=== PATIENT | female | born 1975 | race Caucasian/White ===

== ENCOUNTER 2017-04-27 16:24 | Emergency (ER) | payer MEDICAID, SELFPAY | END 2017-04-27 17:01 | disposition home or self-care (01) | PROVIDERS: Emergency Provider Emergency Medicine; Visit Provider Emergency Medicine | DX: N30.00 Acute cystitis without hematuria (principal); I10 Essential (primary) hypertension; D64.9 Anemia, unspecified; F41.8 Other specified anxiety disorders | CPT/HCPCS: 81001; 87086; 87088; 87186; 99282 ==

== ENCOUNTER 2017-05-11 04:15 | Emergency (ER) | payer MEDICAID, SELFPAY ==
[2017-05-11 04:21] VITALS: BP 131/94; PULSE 113; RESP 20; TEMP 37.2; O2SAT 95; BMI 39.2
--- NOTE | 2017-05-11 04:33 | HMH.EDGENADL ---
ED Disposition Clinical Impression: Headache Qualifiers: Headache type: unspecified Headache chronicity pattern: acute headache Intractability: not intractable Qualified Code(s): R51 - Headache Disposition: Home, Self-Care Condition on Discharge: Good Instructions: Migraine -- Adult Additional Instructions: call pcp for follow up Referrals: Mahesh Horton MD [Primary Care Provider] - - Critical Care Critical Care Time: No Attestation: On , the high probability of a clinically significant, sudden or life threatening deterioration of the following system(s) required my full and direct attention, intervention and personal management. The time I documented below is in addition to time spent performing reported procedures but includes the following listed in this critical care notation. Medical Decision Making - Medical Records Medical records reviewed: Yes: I reviewed the patient's medical records. Vital Signs: 05/11/17 04:21 Temperature 99 F Temperature Source Oral Pulse Rate [Right Brachial] 113 H Respiratory Rate 20 Blood Pressure [Right Arm] 131/94 Blood Pressure Mean [Right Arm] 106 Blood Pressure Source [Right Arm] Automatic Cuff Blood Pressure Position [Right Arm] Sitting 02 Sat by Pulse Oximetry 95 Oxygen Delivery Method Room Air - Mark Inquiry Pt receiving controlled substance: No General Adult HPI - General Chief complaint: PAIN Stated complaint: MIGRAINE Time Seen by Provider: 05/11/17 04:33 Mode of Arrival: Family Vehicle Source of Information: Patient, Spouse, Medical Record Limitations: No Limitations Description of Symptoms (Recalled from ER Triage Doc. by RN): C/O MIGRAINE HEADACHE SINCE 05/10/17 @ 7 PM WITH NAUSEA. TOOK ADVIL MIGRAINE WITH NO RELIEF - History of Present Illness HPI narrative: pt with acute excerbation of her migraine santiago Onset (ago): hour(s) Location: head Severity: moderate Treatments prior to arrival: NSAID - Related Data Home Medications Medication Instructions Recorded Confirmed Carvedilol [Carvedilol 3.125mg Tab] 3.125 mg PO BID 05/11/17 05/11/17 Allergies Allergy/AdvReac Type Severity Reaction Status Date / Time Penicillins [PENICILLINS] Allergy Intermediate I-RASH Unverified 04/21/17 14:36 metoclopramide [From REGLAN] Allergy Mild NA-HALLUCIN Unverified [facility]/21/17 [facility] I have reviewed the patient's past medical history: Yes Medical History: Denies:: Cancer, Diabetes Mellitus Type 1, MRSA Laterality Cases: Bilateral: Tonsillectomy Amputation: No Fractures: No - *Social History Educational Level: Completed High School Smoking Status: Never smoker Alcohol Intake: never - Psychiatric History Expresses thoughts of harming self/others: None Suicide Plan Description: No Plan ROS Obtained: Yes All systems reviewed & no additional complaints - Constitutional Denies fever(s) - Eyes Reports sensitivity to light, Denies change in vision - ENT Denies neck pain - Cardiovascular Denies shortness of breath with activity - Respiratory Denies cough - Neurologic Reports headache(s), Denies seizure-like activity Physical Exam - General General appearance: alert, in no apparent distress - Head Head exam: atraumatic - Eye Eye exam: Present: PERRL, EOMI - ENT ENT exam: Present: mucous membranes moist - Neck Neck exam: Present: full ROM - Respiratory Respiratory exam: Absent: respiratory distress - Cardiovascular Cardiovascular exam: Present: regular rate - Extremities Exam Extremities exam: Present: normal inspection - Neurological Exam Neurological exam: Present: alert, oriented X3, CN II-XII intact - Psychiatric Psychiatric exam: Present: normal affect - Skin Skin exam: Absent: rash
--- NOTE | 2017-05-11 04:36 | ED_ITS ---
ED Disposition Clinical Impression: Headache Qualifiers: Headache type: unspecified Headache chronicity pattern: acute headache Intractability: not intractable Qualified Code(s): R51 - Headache Disposition: Home, Self-Care Condition on Discharge: Good Instructions: Migraine -- Adult Additional Instructions: call pcp for follow up Referrals: Mahesh Horton MD [Primary Care Provider] - - Critical Care Critical Care Time: No Attestation: On , the high probability of a clinically significant, sudden or life threatening deterioration of the following system(s) required my full and direct attention, intervention and personal management. The time I documented below is in addition to time spent performing reported procedures but includes the following listed in this critical care notation. Medical Decision Making - Medical Records Medical records reviewed: Yes: I reviewed the patient's medical records. Vital Signs: 05/11/17 04:21 Temperature 99 F Temperature Source Oral Pulse Rate [Right Brachial] 113 H Respiratory Rate 20 Blood Pressure [Right Arm] 131/94 Blood Pressure Mean [Right Arm] 106 Blood Pressure Source [Right Arm] Automatic Cuff Blood Pressure Position [Right Arm] Sitting 02 Sat by Pulse Oximetry 95 Oxygen Delivery Method Room Air - Mark Inquiry Pt receiving controlled substance: No General Adult HPI - General Chief complaint: PAIN Stated complaint: MIGRAINE Time Seen by Provider: 05/11/17 04:33 Mode of Arrival: Family Vehicle Source of Information: Patient, Spouse, Medical Record Limitations: No Limitations Description of Symptoms (Recalled from ER Triage Doc. by RN): C/O MIGRAINE HEADACHE SINCE 05/10/17 @ 7 PM WITH NAUSEA. TOOK ADVIL MIGRAINE WITH NO RELIEF - History of Present Illness HPI narrative: pt with acute excerbation of her migraine santiago Onset (ago): hour(s) Location: head Severity: moderate Treatments prior to arrival: NSAID - Related Data Home Medications Medication Instructions Recorded Confirmed Carvedilol [Carvedilol 3.125mg Tab] 3.125 mg PO BID 05/11/17 05/11/17 Allergies Allergy/AdvReac Type Severity Reaction Status Date / Time Penicillins [PENICILLINS] Allergy Intermediate I-RASH Unverified 04/21/17 14:36 metoclopramide [From REGLAN] Allergy Mild NA-HALLUCIN Unverified 04/21/17 14:36 [facility] History I have reviewed the patient's past medical history: Yes Medical History: Denies:: Cancer, Diabetes Mellitus Type 1, MRSA Laterality Cases: Bilateral: Tonsillectomy Amputation: No Fractures: No - *Social History Educational Level: Completed High School Smoking Status: Never smoker Alcohol Intake: never - Psychiatric History Expresses thoughts of harming self/others: None Suicide Plan Description: No Plan ROS Obtained: Yes All systems reviewed & no additional complaints - Constitutional Denies fever(s) - Eyes Reports sensitivity to light, Denies change in vision - ENT Denies neck pain - Cardiovascular Denies shortness of breath with activity - Respiratory Denies cough - Neurologic Reports headache(s), Denies seizure-like activity Physical Exam - General General appearance: alert, in no apparent distress - Head Head exam: atraumatic -
[2017-05-11 04:46] VITALS: BP 131/94; PULSE 113; RESP 20; TEMP 37.2; O2SAT 95
== END 2017-05-11 04:49 | disposition home or self-care (01) ==
LOC: ER 04:56
PROVIDERS: Emergency Provider Emergency Medicine; Family Provider Emergency Medicine; PCP Emergency Medicine
DX: R51 Headache (principal); Z88.0 Allergy status to penicillin
CPT/HCPCS: 96372; 99282; J0595

== ENCOUNTER 2017-05-12 17:42 | Emergency (ER) | payer MEDICAID, SELFPAY ==
[2017-05-12 18:20] VITALS: BP 138/90; PULSE 88; RESP 20; TEMP 37.6; O2SAT 98; BMI 39.2
--- NOTE | 2017-05-12 18:54 | HMH.EDUTC ---
[facility] [place]ression: Influenza Disposition: Home, Self-Care Condition on Discharge: Good Instructions: Influenza Additional Instructions: ? Start Tamiflu today if you are going to take it. Discussed risk and possible benefits. ? Lots of rest ? Increase Fluids water, Gatorade, powerade, pedialyte,if /toddler/child ? Alternate Tylenol and / or ibuprofen as discussed for fever, aches, chills x 24 hours without medication for symptoms ? Follow up IMMEDIATELY for new or worsening Symptoms OR no noticeable improvement over the next 48-72 hours, 911 for difficulty or breathing ? You or your child area contagious until no fever, aches, chills for 24 hours with medication for symptoms Prescriptions: Oseltamivir Phosphate [Tamiflu 75mg Capsule] 75 mg PO BID #10 capsule Referrals: Mahesh Horton MD [Primary Care Provider] - Time of Disposition: 19:11 Medical Decision Making Vital Signs: 05/12/17 18:20 Temperature 99.6 F Temperature Source Temporal Artery Scan Pulse Rate [Right] 88 Respiratory Rate 20 Blood Pressure [Right Arm] 138/90 Blood Pressure Mean [Right Arm] 106 Blood Pressure Source [Right Arm] Automatic Cuff Blood Pressure Position [Right Arm] Sitting 02 Sat by Pulse Oximetry 98 Oxygen Delivery Method Room Air - Mark Inquiry Pt receiving controlled substance: No Mark was queried for this patient: No [facility] [place] - General Stated complaint: Cough,Sore throat, Body aches Mode of Arrival: Ambulatory Source of Information: Patient Limitations: No Limitations Description of Symptoms (Recalled from Triage Doc. by RN): COUGH, EAR ACHE, BODY ACHES HEENT Symptoms (Recalled from RN notes): Yes Resp Symptoms (Recalled from RN notes): No Skin Symptoms (Recalled from RN notes): No MS Symptoms (Recalled from RN notes): No Functional Status (Recalled from RN notes): N - History of Present Illness Provider Complaint: Patient state that grand daughter recently diagnosed with the flu and thinks she may have caught it off of her State that she is having body aches chills fever and sore throat and over all not feeling well State that she came in to get tested - Related Data Home Medications Medication Instructions Recorded Confirmed Carvedilol [Carvedilol 3.125mg Tab] 3.125 mg PO BID 05/11/17 05/11/17 Losartan Potassium 50 mg PO DAILY 05/11/17 05/11/17 Quetiapine Fumarate [Seroquel Xr] 50 mg PO DAILY 05/11/17 05/11/17 fluPHENAZine HCl [Prolixin 1mg 25 mg PO DAILY 05/11/17 tablet] hydrOXYzine pamoate [Vistaril 25mg 25 mg PO TID 05/11/17 05/11/17 capsule] Previous Rx's Medication Instructions Recorded Oseltamivir Phosphate [Tamiflu 75 mg PO BID #10 cap 05/12/17 75mg Capsule] Allergies Allergy/AdvReac Type Severity Reaction Status Date / Time Penicillins [PENICILLINS] Allergy Intermediate I-RASH Verified 05/11/17 04:40 metoclopramide [From REGLAN] Allergy Mild NA-HALLUCIN Verified 05/11/17 04:40 ATIONS - Worker's Comp Is this a Worker's Comp case?: No [facility] History I have reviewed the patient's past medical history: Yes Medical History: Denies:: Cancer, Diabetes Mellitus Type 1, MRSA Laterality Cases: Bilateral: Tonsillectomy Amputation: No Fractures: No - *Social History Smoking Status: Never smoker Alcohol Intake: never - Psychiatric History Expresses thoughts of harming self/others: None Suicide Plan Description: No Plan ROS Obtained: Yes All systems reviewed & no additional complaints - Constitutional Constitutional: Reports fever(s), Reports headache(s) - ENT Ears, Nose, Mouth, and Throat: Reports sinus pain, Reports sore throat Physical Exam - General General appearance: alert, in no apparent distress - ENT ENT exam: Present: normal exam, normal oropharynx, mucous membranes moist, TM's normal bilaterally, normal external ear exam, other (Throat mildly red, irritated drainage noted) - Respiratory Respiratory exam: Presen
--- NOTE | 2017-05-12 19:02 | ED_ITS ---
[facility] [place] Clinical Impression: Influenza Disposition: Home, Self-Care Condition on Discharge: Good Instructions: Influenza Additional Instructions: ? Start Tamiflu today if you are going to take it. Discussed risk and possible benefits. ? Lots of rest ? Increase Fluids water, Gatorade, powerade, pedialyte,if /toddler/child ? Alternate Tylenol and / or ibuprofen as discussed for fever, aches, chills x 24 hours without medication for symptoms ? Follow up IMMEDIATELY for new or worsening Symptoms OR no noticeable improvement over the next 48-72 hours, 911 for difficulty or breathing ? You or your child area contagious until no fever, aches, chills for 24 hours with medication for symptoms Prescriptions: Oseltamivir Phosphate [Tamiflu 75mg Capsule] 75 mg PO BID #10 capsule Referrals: Mahesh Horton MD [Primary Care Provider] - Time of Disposition: 19:11 Medical Decision Making Vital Signs: 05/12/17 18:20 Temperature 99.6 F Temperature Source Temporal Artery Scan Pulse Rate [Right] 88 Respiratory Rate 20 Blood Pressure [Right Arm] 138/90 Blood Pressure Mean [Right Arm] 106 Blood Pressure Source [Right Arm] Automatic Cuff Blood Pressure Position [Right Arm] Sitting 02 Sat by Pulse Oximetry 98 Oxygen Delivery Method Room Air - Mark Inquiry Pt receiving controlled substance: No Mark was queried for this patient: No [facility] [place] HPI - General Stated complaint: Cough,Sore throat, Body aches Mode of Arrival: Ambulatory Source of Information: Patient Limitations: No Limitations Description of Symptoms (Recalled from Triage Doc. by RN): COUGH, EAR ACHE, BODY ACHES HEENT Symptoms (Recalled from RN notes): Yes Resp Symptoms (Recalled from RN notes): No Skin Symptoms (Recalled from RN notes): No MS Symptoms (Recalled from RN notes): No Functional Status (Recalled from RN notes): N - History of Present Illness Provider Complaint: Patient state that grand daughter recently diagnosed with the flu and thinks she may have caught it off of her State that she is having body aches chills fever and sore throat and over all not feeling well State that she came in to get tested - Related Data Home Medications Medication Instructions Recorded Confirmed Carvedilol [Carvedilol 3.125mg Tab] 3.125 mg PO BID 05/11/17 05/11/17 Losartan Potassium 50 mg PO DAILY 05/11/17 05/11/17 Quetiapine Fumarate [Seroquel Xr] 50 mg PO DAILY 05/11/17 05/11/17 fluPHENAZine HCl [Prolixin 1mg 25 mg PO DAILY 05/11/17 tablet] hydrOXYzine pamoate [Vistaril 25mg 25 mg PO TID 05/11/17 05/11/17 capsule] Previous Rx's Medication Instructions Recorded Oseltamivir Phosphate [Tamiflu 75 mg PO BID #10 cap 05/12/17 75mg Capsule] Allergies Allergy/AdvReac Type Severity Reaction Status Date / Time Penicillins [PENICILLINS] Allergy Intermediate I-RASH Verified 05/11/17 04:40 metoclopramide [From REGLAN] Allergy Mild NA-HALLUCIN Verified 05/11/17 04:40 ATIONS - Worker's Comp Is this a Worker's Comp case?: No [facility] History I have reviewed the patient's past medical history: Yes Medical History: Denies:: Cancer, Diabetes Mellitus Type 1, MRSA Laterality Cases: Bilateral: Tonsillectomy Amputation: No Fractures: No - *Social History Smoking Status: Ne
[2017-05-12 19:24] LABS: UTC Influenza A Antigen Positive (Negative); UTC Influenza B Antigen Negative (Negative)
== END 2017-05-12 19:18 | disposition home or self-care (01) ==
PROVIDERS: Emergency Provider Nurse Practitioner; Family Provider Emergency Medicine; PCP Emergency Medicine
DX: J10.1 Influenza due to other identified influenza virus with other respiratory manifestations (principal); Z79.899 Other long term (current) drug therapy; Z88.0 Allergy status to penicillin
CPT/HCPCS: 87804; 99202

== ENCOUNTER 2017-05-17 13:19 | Emergency (ER) | payer MEDICAID, SELFPAY ==
[2017-05-17 14:41] VITALS: BMI 46.2
[2017-05-17 14:42] VITALS: BP 170/101; PULSE 111; RESP 18; TEMP 37.7; O2SAT 98; BMI 39.2
--- NOTE | 2017-05-17 14:48 | XR_ITS ---
XR chest 2V INDICATION: Please symptoms COMPARISON: PA and lateral chest 01/24/2016 FINDINGS: The cardiovascular structures are unremarkable. No mediastinal shift or hilar mass is evident. The lungs are well expanded and clear bilaterally. The costophrenic sulci are sharp. No significant bony anomalies are apparent. IMPRESSION: Negative chest.
--- NOTE | 2017-05-17 15:48 | HMH.EDUTC ---
[facility] [place]ression: History of influenza Pneumonia Qualifiers: Pneumonia type: due to influenza A virus Laterality: right Lung location: lower lobe of lung Qualified Code(s): J11.00 - Influenza due to unidentified influenza virus with unspecified type of pneumonia Disposition: Home, Self-Care Condition on Discharge: Good Instructions: DI for Pneumonia -- Adult, Pneumonia-Adult Additional Instructions: * start antibiotic today per ER MD as we discussed. Be sure to complete entire prescription even if feeling better. * Encourage fluids, water, gatorade, powerade, * warm salt water gargles * warm fluids * sore throat lozenges * sleep elevated * humidifier/vaporizer Prescriptions: Azithromycin [Z-Matthew 250mg Tab] 250 mg PO UD DOSE PK #6 tab cefUROXime axetil [Ceftin 250mg Tablet] 2 tab PO BID 10 Days tab Referrals: Mahesh Horton MD [Primary Care Provider] - (IMMEDIATELY for new or worsening symptoms, TOMORROW for final CXR results ER/911 for any difficulty breathing) Time of Disposition: 16:32 Medical Decision Making Vital Signs: 05/17/17 14:42 Temperature 99.9 F H Temperature Source Temporal Artery Scan Pulse Rate [Right Brachial] 111 H Respiratory Rate 18 Blood Pressure [Right Arm] 170/101 Blood Pressure Mean [Right Arm] 124 Blood Pressure Source [Right Arm] Automatic Cuff Blood Pressure Position [Right Arm] Sitting 02 Sat by Pulse Oximetry 98 Oxygen Delivery Method Room Air - Lab Data Lab results reviewed: Yes: I reviewed the patient's lab results. Lab Results 05/17/17 14:48: Influenza Type A Ag Negative, Influenza Type B Ag Negative, Strep Scn Rapid Clinic Negative Orders (Tests/Meds): ORDERS Category Date Time Status Chest XR 2 view (NOT portable) [XR chest 2V] Stat Exams 05/17/17 14:48 Taken Strep Screen Confirmation Stat Micro 05/17/17 14:48 Received - Radiology Data #1 Image(s): Chest Image Reviewed: Yes I reviewed the patient's radiology image, Yes I reviewed the patient's radiology image w/the ED provider Per Dr. Parker, chronic changes and can't exclude early RLL infiltrates. Wants patient on ceftin 500mg BID and zpack. - Mark Inquiry Pt receiving controlled substance: No [facility] [place] - General Stated complaint: cough,has had flu Time Seen by Provider: 05/17/17 15:40 Mode of Arrival: Family Vehicle Source of Information: Patient Limitations: No Limitations Description of Symptoms (Recalled from Triage Doc. by RN): was diagnosed with the flu type a , now i have no voice and my ears hurt HEENT Symptoms (Recalled from RN notes): Yes Resp Symptoms (Recalled from RN notes): No Skin Symptoms (Recalled from RN notes): No MS Symptoms (Recalled from RN notes): No Functional Status (Recalled from RN notes): WNL - History of Present Illness Provider Complaint: c/o feeling worse since being diagnosed with the flu on Thursday, 5 days ago. Has been taking tamiflu, tylenol and ibuprofen. Bulger like it was helping and that she was getting better. Then at work today, started to feel feverish again w/ chills. No aches. Nonprod cough worse. Hasn't taken or tried anything else today for symptoms. Denies SOA, wheezing. Just coughed so much that now I am hoarse . - Related Data Home Medications Medication Instructions Recorded Confirmed Carvedilol [Carvedilol 3.125mg Tab] 25 mg PO BID 05/11/17 05/17/17 Losartan Potassium 50 mg PO DAILY 05/11/17 05/17/17 Quetiapine Fumarate [Seroquel Xr] 50 mg PO DAILY 05/11/17 05/17/17 fluPHENAZine HCl [Prolixin 1mg 25 mg PO DAILY 05/11/17 05/17/17 tablet] hydrOXYzine pamoate [Vistaril 25mg 25 mg PO TID 05/11/17 05/17/17 capsule] Oseltamivir Phosphate [Tamiflu 75 mg PO BID 05/17/17 05/17/17 75mg Capsule] Previous Rx's Medication Instructions Recorded Azithromycin [Z-Matthew 250mg Tab] 250 mg PO UD DOSE PK #6 tab 05/17/17 cefUROXime axetil [Ceftin 250mg 2 tab PO BID 10 Days tab 05/17/17 Tablet]
--- NOTE | 2017-05-17 15:51 | ED_ITS ---
[facility] [place] Imp[place]: History of influenza Pneumonia Qualifiers: Pneumonia type: due to influenza A virus Laterality: right Lung location: lower lobe of lung Qualified Code(s): J11.00 - Influenza due to unidentified influenza virus with unspecified type of pneumonia Disposition: Home, Self-Care Condition on Discharge: Good Instructions: DI for Pneumonia -- Adult, Pneumonia-Adult Additional Instructions: * start antibiotic today per ER MD as we discussed. Be sure to complete entire prescription even if feeling better. * Encourage fluids, water, gatorade, powerade, * warm salt water gargles * warm fluids * sore throat lozenges * sleep elevated * humidifier/vaporizer Prescriptions: Azithromycin [Z-Matthew 250mg Tab] 250 mg PO UD DOSE PK #6 tab cefUROXime axetil [Ceftin 250mg Tablet] 2 tab PO BID 10 Days tab Referrals: Mahesh Horton MD [Primary Care Provider] - (IMMEDIATELY for new or worsening symptoms, TOMORROW for final CXR results ER/911 for any difficulty breathing) Time of Disposition: 16:32 Medical Decision Making Vital Signs: 05/17/17 14:42 Temperature 99.9 F H Temperature Source Temporal Artery Scan Pulse Rate [Right Brachial] 111 H Respiratory Rate 18 Blood Pressure [Right Arm] 170/101 Blood Pressure Mean [Right Arm] 124 Blood Pressure Source [Right Arm] Automatic Cuff Blood Pressure Position [Right Arm] Sitting 02 Sat by Pulse Oximetry 98 Oxygen Delivery Method Room Air - Lab Data Lab results reviewed: Yes: I reviewed the patient's lab results. Lab Results 05/17/17 14:48: Influenza Type A Ag Negative, Influenza Type B Ag Negative, Strep Scn Rapid Clinic Negative Orders (Tests/Meds): ORDERS Category Date Time Status Chest XR 2 view (NOT portable) [XR chest 2V] Stat Exams 05/17/17 14:48 Taken Strep Screen Confirmation Stat Micro 05/17/17 14:48 Received - Radiology Data #1 Image(s): Chest Image Reviewed: Yes I reviewed the patient's radiology image, Yes I reviewed the patient's radiology image w/the ED provider Per Dr. Parker, chronic changes and can't exclude early RLL infiltrates. Wants patient on ceftin 500mg BID and zpack. - Mark Inquiry Pt receiving controlled substance: No [facility] [place] - General Stated complaint: cough,has had flu Time Seen by Provider: 05/17/17 15:40 Mode of Arrival: Family Vehicle Source of Information: Patient Limitations: No Limitations Description of Symptoms (Recalled from Triage Doc. by RN): was diagnosed with the flu type a , now i have no voice and my ears hurt HEENT Symptoms (Recalled from RN notes): Yes Resp Symptoms (Recalled from RN notes): No Skin Symptoms (Recalled from RN notes): No MS Symptoms (Recalled from RN notes): No Functional Status (Recalled from RN notes): WNL - History of Present Illness Provider Complaint: c/o feeling worse since being diagnosed with the flu on Thursday, 5 days ago. Has been taking tamiflu, tylenol and ibuprofen. Usk like it was helping and that she was getting better. Then at work today, started to feel feverish again w/ chills. No aches. Nonprod cough worse. Hasn't taken or tried anything else today for symptoms. Denies SOA, wheezing. Just coughed so much that now I am hoarse . - Related Data Home Medications Medication Instructions Recorded Confirmed Carvedilol [Carvedilol 3.125mg Tab] 25 mg PO BID
[2017-05-17 15:56] LABS: UTC Influenza A Antigen Negative (Negative); UTC Influenza B Antigen Negative (Negative); UTC Strep Screen (Rapid) Negative (Negative)
[2017-05-17 16:39] VITALS: BP 170/101; PULSE 111; RESP 18; TEMP 37.7; O2SAT 98
== END 2017-05-17 16:41 | disposition home or self-care (01) ==
PROVIDERS: Emergency Provider Nurse Practitioner Family; Family Provider Emergency Medicine; PCP Emergency Medicine
DX: J11.00 Influenza due to unidentified influenza virus with unspecified type of pneumonia (principal); F17.210 Nicotine dependence, cigarettes, uncomplicated; H66.019 Acute suppurative otitis media with spontaneous rupture of ear drum, unspecified ear; Z88.0 Allergy status to penicillin
CPT/HCPCS: 71046; 87804; 87880; 99202; 99282

== ENCOUNTER 2017-06-01 10:18 | Emergency (ER) | payer MEDICAID, SELFPAY ==
[2017-06-01 11:25] VITALS: BP 140/110; PULSE 85; RESP 20; TEMP 36.6; O2SAT 97; BMI 38.0
--- NOTE | 2017-06-01 12:13 | HMH.EDUTC ---
[facility] [place] Clinical Impression: Bronchitis Otitis media, purulent, acute, with spontaneous rupture of TM Qualifiers: Laterality: right Recurrence: not specified as recurrent Qualified Code(s): H66.011 - Acute suppurative otitis media with spontaneous rupture of ear drum, right ear Disposition: Home, Self-Care Condition on Discharge: Good Instructions: Middle Ear Infection, Acute Bronchitis Additional Instructions: On ibuprofen as needed for pain or fever Antibiotics as ordered Follow up with primary care this week If symptoms worsen or do not improve return or be seen in the ER Follow-up with ENT as soon as possible Prescriptions: Albuterol Sulfate [Albuterol HFA Inhaler] 1 puff IH Q4HP PRN #1 inh PRN Reason: Shortness Of Breath Or Wheezing Azithromycin [Zithromax 250mg tab] 250 mg PO DIRECTED #6 tab Benzonatate [Tessalon Perle 100mg Cap] 100 mg PO BID PRN 7 Days #14 cap PRN Reason: Cough Referrals: Mahesh Horton MD [Primary Care Provider] - Kt Mora MD [Staff Physician] - Time of Disposition: 12:25 Medical Decision Making Vital Signs: 06/01/17 11:25 Temperature 97.9 F Temperature Source Temporal Artery Scan Pulse Rate [Brachial] 85 Respiratory Rate 20 Blood Pressure [Right Arm] 140/110 Blood Pressure Mean [Right Arm] 120 Blood Pressure Source [Right Arm] Automatic Cuff Blood Pressure Position [Right Arm] Sitting 02 Sat by Pulse Oximetry 97 Oxygen Delivery Method Room Air - Mark Inquiry Pt receiving controlled substance: No [facility] [place] - General Chief complaint: Urgent Treatment Center Stated complaint: cough cold sweats Time Seen by Provider: 06/01/17 12:14 Mode of Arrival: Ambulatory Source of Information: Patient Limitations: No Limitations Description of Symptoms (Recalled from Triage Doc. by RN): DX WITH THE FLU ON THE AND STILL HAVE SYMPTOMS WITH COUGH AND CHEST CONGESTION, RT EAR IS STOPPED UP. HEENT Symptoms (Recalled from RN notes): Yes Resp Symptoms (Recalled from RN notes): Yes Skin Symptoms (Recalled from RN notes): No MS Symptoms (Recalled from RN notes): No Functional Status (Recalled from RN notes): NA - History of Present Illness Provider Complaint: 32-year-old female presents today for cough, chest congestion, wheezing, and right ear pain. Patient states she was diagnosed with the flu couples ago was placed on antibiotics Zithromax 2 weeks ago and Keflex she says she just finished those a couple days ago and feels worse now. - Related Data Home Medications Medication Instructions Recorded Confirmed Carvedilol [Carvedilol 3.125mg Tab] 25 mg PO BID 05/11/17 05/17/17 Losartan Potassium 50 mg PO DAILY 05/11/17 05/17/17 Quetiapine Fumarate [Seroquel Xr] 50 mg PO DAILY 05/11/17 05/17/17 fluPHENAZine HCl [Prolixin 1mg 25 mg PO DAILY 05/11/17 05/17/17 tablet] hydrOXYzine pamoate [Vistaril 25mg 25 mg PO TID 05/11/17 05/17/17 capsule] Oseltamivir Phosphate [Tamiflu 75 mg PO BID 05/17/17 05/17/17 75mg Capsule] Previous Rx's Medication Instructions Recorded Azithromycin [Z-Matthew 250mg Tab] 250 mg PO UD DOSE PK #6 tab 05/17/17 cefUROXime axetil [Ceftin 250mg 2 tab PO BID 10 Days tab 05/17/17 Tablet] prednisone 20 mg tablet 20 mg PO BID #10 tab 05/18/17 promethazine-DM 6.25 mg-15 mg/5 mL 5 ml PO Q6H PRN #180 ml 05/18/17 syrup Albuterol Sulfate [Albuterol HFA 1 puff IH Q4HP PRN #1 inh 06/01/17 Inhaler] Azithromycin [Zithromax 250mg 250 mg PO DIRECTED #6 tab 06/01/17 tab] Benzonatate [Tessalon Perle 100mg 100 mg PO BID PRN 7 Days #14 cap 06/01/17 Cap] Allergies Allergy/AdvReac Type Severity Reaction Status Date / Time Penicillins [PENICILLINS] Allergy Intermediate I-RASH Verified 05/18/17 13:15 metoclopramide [From REGLAN] Allergy Mild NA-HALLUCIN Verified 05/18/17 13:15 ATIONS - Worker's Comp Is this a Worker's Comp case?: No [facility] History I have reviewed the patient's past medical his
--- NOTE | 2017-06-01 12:17 | ED_ITS ---
[facility] [place] Clinical Impression: Bronchitis Otitis media, purulent, acute, with spontaneous rupture of TM Qualifiers: Laterality: right Recurrence: not specified as recurrent Qualified Code(s): H66.011 - Acute suppurative otitis media with spontaneous rupture of ear drum, right ear Disposition: Home, Self-Care Condition on Discharge: Good Instructions: Middle Ear Infection, Acute Bronchitis Additional Instructions: On ibuprofen as needed for pain or fever Antibiotics as ordered Follow up with primary care this week If symptoms worsen or do not improve return or be seen in the ER Follow-up with ENT as soon as possible Prescriptions: Albuterol Sulfate [Albuterol HFA Inhaler] 1 puff IH Q4HP PRN #1 inh PRN Reason: Shortness Of Breath Or Wheezing Azithromycin [Zithromax 250mg tab] 250 mg PO DIRECTED #6 tab Benzonatate [Tessalon Perle 100mg Cap] 100 mg PO BID PRN 7 Days #14 cap PRN Reason: Cough Referrals: Mahesh Horton MD [Primary Care Provider] - Kt Mora MD [Staff Physician] - Time of Disposition: 12:25 Medical Decision Making Vital Signs: 06/01/17 11:25 Temperature 97.9 F Temperature Source Temporal Artery Scan Pulse Rate [Brachial] 85 Respiratory Rate 20 Blood Pressure [Right Arm] 140/110 Blood Pressure Mean [Right Arm] 120 Blood Pressure Source [Right Arm] Automatic Cuff Blood Pressure Position [Right Arm] Sitting 02 Sat by Pulse Oximetry 97 Oxygen Delivery Method Room Air - Mark Inquiry Pt receiving controlled substance: No [facility] [place] HPI - General Chief complaint: Urgent Treatment Center Stated complaint: cough cold sweats Time Seen by Provider: 06/01/17 12:14 Mode of Arrival: Ambulatory Source of Information: Patient Limitations: No Limitations Description of Symptoms (Recalled from Triage Doc. by RN): DX WITH THE FLU ON THE AND STILL HAVE SYMPTOMS WITH COUGH AND CHEST CONGESTION, RT EAR IS STOPPED UP. HEENT Symptoms (Recalled from RN notes): Yes Resp Symptoms (Recalled from RN notes): Yes Skin Symptoms (Recalled from RN notes): No MS Symptoms (Recalled from RN notes): No Functional Status (Recalled from RN notes): NA - History of Present Illness Provider Complaint: 32-year-old female presents today for cough, chest congestion, wheezing, and right ear pain. Patient states she was diagnosed with the flu couples ago was placed on antibiotics Zithromax 2 weeks ago and Keflex she says she just finished those a couple days ago and feels worse now. - Related Data Home Medications Medication Instructions Recorded Confirmed Carvedilol [Carvedilol 3.125mg Tab] 25 mg PO BID 05/11/17 05/17/17 Losartan Potassium 50 mg PO DAILY 05/11/17 05/17/17 Quetiapine Fumarate [Seroquel Xr] 50 mg PO DAILY 05/11/17 05/17/17 fluPHENAZine HCl [Prolixin 1mg 25 mg PO DAILY 05/11/17 05/17/17 tablet] hydrOXYzine pamoate [Vistaril 25mg 25 mg PO TID 05/11/17 05/17/17 capsule] Oseltamivir Phosphate [Tamiflu 75 mg PO BID 05/17/17 05/17/17 75mg Capsule] Previous Rx's Medication Instructions Recorded Azithromycin [Z-Matthew 250mg Tab] 250 mg PO UD DOSE PK #6 tab 05/17/17 cefUROXime axetil [Ceftin 250mg 2 tab PO BID 10 Days tab 05/17/17 Tablet] prednisone 20 mg tablet 20 mg PO BID #10 tab 05/18/17 promethazine-DM 6.25 mg-15 mg/5 mL 5 ml PO Q6H PRN #180 ml 05/18/17 syrup
== END 2017-06-01 12:28 | disposition home or self-care (01) ==
PROVIDERS: Emergency Provider Nurse Practitioner Family; Family Provider Emergency Medicine; PCP Emergency Medicine
DX: J20.9 Acute bronchitis, unspecified (principal); H66.011 Acute suppurative otitis media with spontaneous rupture of ear drum, right ear; Z87.09 Personal history of other diseases of the respiratory system; I10 Essential (primary) hypertension; Z88.0 Allergy status to penicillin; Z88.8 Allergy status to other drugs, medicaments and biological substances
CPT/HCPCS: 99201

== ENCOUNTER 2017-06-21 21:48 | Emergency (ER) | payer MEDICAID, SELFPAY ==
[2017-06-21 21:55] VITALS: BP 142/93; PULSE 76; RESP 16; TEMP 36.6; O2SAT 96; BMI 86.4
--- NOTE | 2017-06-21 22:05 | HMH.EDHA ---
ED Disposition Clinical Impression: Migraine Qualifiers: Migraine type: unspecified Status migrainosus presence: without status migrainosus Intractability: not intractable Qualified Code(s): G43.909 - Migraine, unspecified, not intractable, without status migrainosus Disposition: Home, Self-Care Condition on Discharge: Good Instructions: Migraine -- Adult Additional Instructions: Please fill your prescription for Hydroxyzine in the morning, follow up with your PCP as needed. Time of Disposition: 22:40 - Critical Care Critical Care Time: No Attestation: On 06/21/17, the high probability of a clinically significant, sudden or life threatening deterioration of the following system(s) required my full and direct attention, intervention and personal management. The time I documented below is in addition to time spent performing reported procedures but includes the following listed in this critical care notation. Medical Decision Making - Medical Records Medical records reviewed: Yes: I reviewed the patient's medical records. Vital Signs: 06/21/17 21:55 06/21/17 22:28 Temperature 97.8 F 98.7 F Temperature Source Oral Oral Pulse Rate 85 Pulse Rate [Right Radial] 76 Respiratory Rate 16 16 Blood Pressure 138/78 Blood Pressure [Right Arm] 142/93 Blood Pressure Mean [Right Arm] 109 Blood Pressure Source [Right Arm] Automatic Cuff Blood Pressure Position Supine Blood Pressure Position [Right Arm] Supine 02 Sat by Pulse Oximetry 96 Oxygen Delivery Method Room Air Room Air Orders (Tests/Meds): ED MEDICATIONS Discontinued Medications Generic Name Dose Route Start Last Admin Trade Name Freq PRN Reason Stop Dose Admin Ketorolac Tromethamine 60 mg 06/21/17 22:09 06/21/17 22:23 Toradol 30mg/Ml Vial IM 06/21/17 22:10 60 mg ONCE ONE Administration Ondansetron HCl 4 mg 06/21/17 22:09 06/21/17 22:23 Zofran 4mg/2ml Vial IM 06/21/17 22:10 4 mg ONCE ONE Administration - Mark Inquiry Pt receiving controlled substance: No - Reevaluation(s) Time: 22:40 Reevaluation #1: Patiwnt re-evaluated, in no acute distress, improving. Headache HPI - General Chief Complaint: Headache Stated Complaint: Migraine Mode of Arrival: Ambulatory Source of Information: Patient Limitations: No Limitations Description of Symptoms (Recalled from ER Triage Doc. by RN): ran out of meds 4 days ago and was working and missed picking them up - History of Present Illness MD Complaint: migraine Onset (ago): hour(s) (6) Onset description: gradual Location: diffuse Severity: moderate Severity scale (1-10): 6 Quality: throbbing Relieving factors: nothing Exacerbating factors: light, noise, rest Context: occurred at rest Associated symptoms: nausea, photophobia, sensitivity to sound Treatments prior to arrival: none - Related Data Home Medications Medication Instructions Recorded Confirmed Carvedilol [Carvedilol 3.125mg Tab] 25 mg PO BID 05/11/17 06/21/17 Losartan Potassium 50 mg PO DAILY 05/11/17 06/21/17 Quetiapine Fumarate [Seroquel Xr] 50 mg PO DAILY 05/11/17 06/21/17 fluPHENAZine HCl [Prolixin 1mg 25 mg PO DAILY 05/11/17 06/21/17 tablet] hydrOXYzine pamoate [Vistaril 25mg 25 mg PO TID 05/11/17 06/21/17 capsule] Allergies Allergy/AdvReac Type Severity Reaction Status Date / Time Penicillins [PENICILLINS] Allergy Intermediate I-RASH Verified 06/12/17 09:29 metoclopramide [From REGLAN] Allergy Mild NA-HALLUCIN Verified 06/12/17 09:29 [facility] I have reviewed the patient's past medical history: Yes Comment: nothing was documented in this section by the nurse - Social History Alcohol Intake: never Family Hx:: No significant family history ROS Obtained: Yes All systems reviewed & no additional complaints, Yes Systems reviewed as appropriate & no additional complaints - Gastrointestinal Gastrointestingal: Reports: nausea - Neurologic Neurologic:
[2017-06-21 22:28] VITALS: BP 138/78; PULSE 85; RESP 16; TEMP 37.1; O2SAT 98
== END 2017-06-21 22:28 | disposition home or self-care (01) ==
PROVIDERS: Emergency Provider Emergency Medicine
DX: G43.909 Migraine, unspecified, not intractable, without status migrainosus (principal); Z88.0 Allergy status to penicillin; Z88.8 Allergy status to other drugs, medicaments and biological substances
CPT/HCPCS: 96372; 99281; J2405

== ENCOUNTER 2017-07-25 17:34 | Emergency (ER) | payer MEDICAID, SELFPAY ==
[2017-07-25 17:54] VITALS: BP 217/119; PULSE 86; RESP 18; TEMP 36.6; O2SAT 97; BMI 41.8
[2017-07-25 18:10] VITALS: BP 171/99
--- NOTE | 2017-07-25 18:11 | HMH.EDUTC ---
[facility] [place] Clinical Impression: Migraine Qualifiers: Migraine type: unspecified Status migrainosus presence: without status migrainosus Intractability: not intractable Qualified Code(s): G43.909 - Migraine, unspecified, not intractable, without status migrainosus Disposition: Home, Self-Care Condition on Discharge: Good Instructions: Migraine -- Adult, DI for Migraine Additional Instructions: Over the counter Motrin or Tylenol at first onset of migraine Follow up with family doctor in 24-48 hours if no improvement or worsening of symptoms Straight to ER if any emergent problems such as blurred vision etc Return if needed Go home lay down and sleep to try to sleep off the remainder of the headache Referrals: Mahesh Horton MD [Primary Care Provider] - (24-48 hours if no improvement or worsening of symptoms) Time of Disposition: 18:42 Medical Decision Making - Medical Records Medical records reviewed: Yes: I reviewed the patient's medical records. - Mark Inquiry Pt receiving controlled substance: No Mark was queried for this patient: No Vital Signs: 07/25/17 17:54 07/25/17 18:10 Temperature 97.8 F Temperature Source Oral Pulse Rate [Right Brachial] 86 Respiratory Rate 18 Blood Pressure [Right Arm] 217/119 171/99 Blood Pressure Mean [Right Arm] 151 123 Blood Pressure Source [Right Arm] Automatic Cuff Automatic Cuff Blood Pressure Position [Right Arm] Sitting 02 Sat by Pulse Oximetry 97 Oxygen Delivery Method Room Air Orders (Tests/Meds): ED MEDICATIONS Discontinued Medications Generic Name Dose Route Start Last Admin Trade Name Freq PRN Reason Stop Dose Admin Diphenhydramine HCl 25 mg 07/25/17 18:16 07/25/17 18:22 Benadryl 50mg/1ml Vial IM 07/25/17 18:17 25 mg ONCE ONE Administration Ketorolac Tromethamine 60 mg 07/25/17 18:16 07/25/17 18:22 Toradol 60mg/2ml Vial IM 07/25/17 18:17 60 mg ONCE ONE Administration - Reevaluation(s) Time: 18:33 Reevaluation #1: Patient state that headache much better after medication State that she is ready to go home now [facility] [place] - General Stated complaint: migraine Time Seen by Provider: 07/25/17 18:00 Mode of Arrival: Family Vehicle Source of Information: Patient Limitations: No Limitations Description of Symptoms (Recalled from Triage Doc. by RN): STRESS HEADACHE HEENT Symptoms (Recalled from RN notes): Yes Resp Symptoms (Recalled from RN notes): No Skin Symptoms (Recalled from RN notes): No MS Symptoms (Recalled from RN notes): No Functional Status (Recalled from RN notes): N/A - History of Present Illness Provider Complaint: Patient state that she recently lost a family member and has had a migraine headache since the burial yesterday State that she has felt stressed ever since the . State that she often gets a stress headache States that this one is simular to the others she has had before. Denies vomiting, denies blurred vision - Related Data Home Medications Medication Instructions Recorded Confirmed Carvedilol [Carvedilol 3.125mg Tab] 25 mg PO BID 05/11/17 07/25/17 Losartan Potassium 25 mg PO DAILY 05/11/17 07/25/17 Quetiapine Fumarate [Seroquel Xr] 25 mg PO DAILY 05/11/17 07/25/17 fluPHENAZine HCl [Prolixin 1mg 25 mg PO DAILY 05/11/17 07/25/17 tablet] Aspirin [Aspir 81] 81 mg PO DAILY 07/25/17 07/25/17 Previous Rx's Medication Instructions Recorded albuterol sulfate HFA 90 1 puff INHALATION Q4H 30 Days #18 g 06/23/17 mcg/actuation aerosol inhaler Allergies Allergy/AdvReac Type Severity Reaction Status Date / Time Penicillins [PENICILLINS] Allergy Intermediate I-RASH Verified 07/22/17 16:26 metoclopramide [From REGLAN] Allergy Mild NA-HALLUCIN Verified 07/22/17 16:26 ATIONS - Worker's Comp Is this a Worker's Comp case?: No [facility] History I have reviewed the patient's past medical history: Yes Medical History: Reports:: Anxiety, Hypertension Denies:: C
--- NOTE | 2017-07-25 18:14 | ED_ITS ---
[facility] [place] Clinical Impression: Migraine Qualifiers: Migraine type: unspecified Status migrainosus presence: without status migrainosus Intractability: not intractable Qualified Code(s): G43.909 - Migraine, unspecified, not intractable, without status migrainosus Disposition: Home, Self-Care Condition on Discharge: Good Instructions: Migraine -- Adult, DI for Migraine Additional Instructions: Over the counter Motrin or Tylenol at first onset of migraine Follow up with family doctor in 24-48 hours if no improvement or worsening of symptoms Straight to ER if any emergent problems such as blurred vision etc Return if needed Go home lay down and sleep to try to sleep off the remainder of the headache Referrals: Mahesh Horton MD [Primary Care Provider] - (24-48 hours if no improvement or worsening of symptoms) Time of Disposition: 18:42 Medical Decision Making - Medical Records Medical records reviewed: Yes: I reviewed the patient's medical records. - Mark Inquiry Pt receiving controlled substance: No Mark was queried for this patient: No Vital Signs: 07/25/17 17:54 07/25/17 18:10 Temperature 97.8 F Temperature Source Oral Pulse Rate [Right Brachial] 86 Respiratory Rate 18 Blood Pressure [Right Arm] 217/119 171/99 Blood Pressure Mean [Right Arm] 151 123 Blood Pressure Source [Right Arm] Automatic Cuff Automatic Cuff Blood Pressure Position [Right Arm] Sitting 02 Sat by Pulse Oximetry 97 Oxygen Delivery Method Room Air Orders (Tests/Meds): ED MEDICATIONS Discontinued Medications Generic Name Dose Route Start Last Admin Trade Name Freq PRN Reason Stop Dose Admin Diphenhydramine HCl 25 mg 07/25/17 18:16 07/25/17 18:22 Benadryl 50mg/1ml Vial IM 07/25/17 18:17 25 mg ONCE ONE Administration Ketorolac Tromethamine 60 mg 07/25/17 18:16 07/25/17 18:22 Toradol 60mg/2ml Vial IM 07/25/17 18:17 60 mg ONCE ONE Administration - Reevaluation(s) Time: 18:33 Reevaluation #1: Patient state that headache much better after medication State that she is ready to go home now [facility] [place] - General Stated complaint: migraine Time Seen by Provider: 07/25/17 18:00 Mode of Arrival: Family Vehicle Source of Information: Patient Limitations: No Limitations Description of Symptoms (Recalled from Triage Doc. by RN): STRESS HEADACHE HEENT Symptoms (Recalled from RN notes): Yes Resp Symptoms (Recalled from RN notes): No Skin Symptoms (Recalled from RN notes): No MS Symptoms (Recalled from RN notes): No Functional Status (Recalled from RN notes): N/A - History of Present Illness Provider Complaint: Patient state that she recently lost a family member and has had a migraine headache since the burial yesterday State that she has felt stressed ever since the . State that she often gets a stress headache States that this one is simular to the others she has had before. Denies vomiting, denies blurred vision - Related Data Home Medications Medication Instructions Recorded Confirmed Carvedilol [Carvedilol 3.125mg Tab] 25 mg PO BID 05/11/17 07/25/17 Losartan Potassium 25 mg PO DAILY 05/11/17 07/25/17 Quetiapine Fumarate [Seroquel Xr] 25 mg PO DAILY 05/11/17 07/25/17 fluPHENAZine HCl [Prolixin 1mg 25 mg PO DAILY 05/11/17 07/25/17 tablet] Aspirin [A
[2017-07-25 18:54] VITALS: BP 160/86; PULSE 80; RESP 16; TEMP 36.6; O2SAT 98
== END 2017-07-25 18:55 | disposition home or self-care (01) ==
PROVIDERS: Emergency Provider Nurse Practitioner; PCP Emergency Medicine
DX: G43.909 Migraine, unspecified, not intractable, without status migrainosus (principal); I10 Essential (primary) hypertension; F41.9 Anxiety disorder, unspecified
CPT/HCPCS: 96372; 99201

== ENCOUNTER 2017-07-30 10:51 | Emergency (ER) | payer MEDICAID, SELFPAY ==
[2017-07-30] VITALS (7 sets, daily range): BP systolic 133–157; BP diastolic 81–113; PULSE 70–98; RESP 18–20; TEMP 36.6; O2SAT 97–98; BMI 41.8
--- NOTE | 2017-07-30 11:08 | XR_ITS ---
XR chest 2V HISTORY: ITS.REASON: CHEST PRESSURE ORDERING PHYSICIAN: Shahram Ocampo MD PATIENT AGE: 42 years COMPARISON: 05/17/2017 FINDINGS: The cardiomediastinal silhouette and pulmonary vascularity are within normal limits. The lungs are clear without infiltrates, suspicious nodules, or pleural effusions. No acute bony abnormalities. IMPRESSION: Negative chest, no acute finding
[2017-07-30 11:35] LABS: Basophils % 0.4 % (0.1-2.0); Eosinophils # 0.3 K/mm3 (0.0-0.4); Eosinophils % 3.9 % (0.1-12.0); Hematocrit 40.2 % (37.0-47.0); Hemoglobin 13.1 g/dL (12.2-16.2); Lymphocytes # 2.7 K/mm3 (0.7-4.5); Lymphocytes % 32.8 K/mm3 (10-50); Mean Corpuscular HGB Conc 32.6 g/dL (31.8-35.4); Mean Corpuscular Hemoglobin 30.3 pg (27.0-31.2); Mean Platelet Volume 6.5 fl (7.4-10.4); Monocytes # 0.5 K/mm3 (0.1-1.0); Monocytes % 5.4 % (1.7-9.3); Neutrophils # 4.8 K/mm3 (1.8-7.8); Neutrophils % 57.4 % (37.0-80.0); Platelet Count 369 K/mm3 (142-424); Red Blood Count 4.33 M/mm3 (4.20-5.40); Red Cell Distribution Width 13.3 % (11.5-17.5); White Blood Count 8.4 K/mm3 (4.8-10.8)
[2017-07-30 11:59] LABS: Alanine Aminotransferase 72 U/L (12-78); Albumin Level 3.8 gm/dL (3.4-5.0); Alkaline Phosphatase 88 U/L (46-116); Anion Gap 10.4 mEq/L (5-15); Aspartate Amino Transferase 43 U/L (15-37); Bilirubin,Total 0.6 mg/dL (0.2-1.0); Blood Urea Nitrogen 14 mg/dL (7-18); Calcium 9.2 mg/dL (8.5-10.1); Carbon Dioxide 28 mmol/L (21.0-32.0); Chloride 105 mmol/L (98-107); Creatine Kinase 74 U/L (26-192); Creatinine Clearance Estimated 88 mL/min (0-300); D-Dimer 118 (0-400); Estimated Glomerular Filt Rate 79 ml/min (>60); GFR (African American) 96 ML/MIN (>60); Glucose 118 mg/dL (74-106); Potassium 3.4 mmoL/L (3.5-5.1); Sodium 140 mmol/L (136-145); Thyroid Stimulating Hormone 0.96 uIU/ml (0.358-3.740); Total Protein,Serum 7.8 gm/dL (6.4-8.2); Troponin I < 0.02 ng/ml (0.00-0.06)
[2017-07-30 12:00] LABS: CKMB Relative Index 0.7 U/L (0-4.0); Creatine Kinase MB < 0.5 ng/ml (0.0-3.6)
--- NOTE | 2017-07-30 13:26 | HMH.EDGENADL ---
ED Disposition Clinical Impression: Headache Qualifiers: Headache type: tension-type Headache chronicity pattern: acute headache Intractability: not intractable Qualified Code(s): G44.209 - Tension-type headache, unspecified, not intractable Hypertension Qualifiers: Hypertension type: essential hypertension Qualified Code(s): I10 - Essential (primary) hypertension Disposition: Home, Self-Care Condition on Discharge: Good Instructions: Hypertension (Alternative Therapy), DI for Headache Additional Instructions: Please keep a written log with your blood pressures at rest, at home. Follow-up with your family doctor in 2 weeks, regarding your blood pressure management. Prescriptions: Losartan Potassium 50 mg PO DAILY #30 tab Referrals: Mahesh Horton MD [Primary Care Provider] - Forms: Work/School Release Time of Disposition: 14:32 - Critical Care Critical Care Time: No Attestation: On 07/30/17, the high probability of a clinically significant, sudden or life threatening deterioration of the following system(s) required my full and direct attention, intervention and personal management. The time I documented below is in addition to time spent performing reported procedures but includes the following listed in this critical care notation. Medical Decision Making - Medical Records Medical records reviewed: Yes: I reviewed the patient's medical records. - Mark Inquiry Pt receiving controlled substance: No Vital Signs: 07/30/17 10:57 07/30/17 11:36 07/30/17 11:40 Temperature 97.9 F Temperature Source Oral Pulse Rate Pulse Rate [Right Brachial] 98 H 81 Respiratory Rate 20 20 Blood Pressure Blood Pressure [Right Arm] 157/113 151/87 157/81 Blood Pressure Mean [Right Arm] 127 108 106 Blood Pressure Source Blood Pressure Source [Right Arm] Automatic Cuff Automatic Cuff Automatic Cuff Blood Pressure Position Blood Pressure Position [Right Arm] Sitting Sitting Supine 02 Sat by Pulse Oximetry 98 98 Oxygen Delivery Method Room Air Room Air 07/30/17 13:00 07/30/17 14:00 07/30/17 14:24 Temperature Temperature Source Pulse Rate Pulse Rate [Right Brachial] 75 72 70 Respiratory Rate 20 20 18 Blood Pressure Blood Pressure [Right Arm] 156/94 140/87 135/93 Blood Pressure Mean [Right Arm] 114 104 107 Blood Pressure Source Blood Pressure Source [Right Arm] Automatic Cuff Automatic Cuff Blood Pressure Position Blood Pressure Position [Right Arm] Sitting Supine 02 Sat by Pulse Oximetry 98 98 97 Oxygen Delivery Method Room Air Room Air Room Air 07/30/17 14:36 Temperature 98 F Temperature Source Oral Pulse Rate 77 Pulse Rate [Right Brachial] Respiratory Rate 18 Blood Pressure 133/85 Blood Pressure [Right Arm] Blood Pressure Mean [Right Arm] Blood Pressure Source Manual Cuff/ Doppler Blood Pressure Source [Right Arm] Blood Pressure Position Sitting Blood Pressure Position [Right Arm] 02 Sat by Pulse Oximetry Oxygen Delivery Method Room Air - Lab Data Lab results reviewed: Yes: I reviewed the patient's lab results. Lab Results 07/30/17 11:20: WBC 8.4, RBC 4.33, Hgb 13.1, Hct 40.2, MCV 93.0, MCH 30.3, MCHC 32.6, RDW 13.3, Plt Count 369, MPV 6.5 L, Neut % (Auto) 57.4, Lymph % (Auto) 32.8, [place] % (Auto) 5.4, Eos % (Auto) 3.9, Baso % (Auto) 0.4, Neut # (Auto) 4.8, Lymph # (Auto) 2.7, [place] # (Auto) 0.5, Eos # (Auto) 0.3, Baso # (Auto) 0.0 07/30/17 11:20: Sodium 140, Potassium 3.4 L, Chloride 105, Carbon Dioxide 28, Anion Gap 10.4, BUN 14, Creatinine 0.80, Estimated Creat Clear 88, Estimated GFR 79, Est GFR ( Amer) 96, Glucose 118 H, Calcium 9.2, Total Bilirubin 0.6, AST 43 H, ALT 72, Alkaline Phosphatase 88, Total Creatine Kinase 74, CK-MB (CK-2) < 0.5, CK-MB (CK-2) Rel Index 0.7, Troponin I < 0.02, Total Protein 7.8, Albumin 3.8, Globulin 4.0 H, Albumin/Globulin Ratio 1.0 L, TSH 0.96 07/30/17 11:20: B-Natriuretic Peptide 8 07/30/17 11:20: D-Dimer 118 Res
== END 2017-07-30 14:53 | disposition home or self-care (01) ==
PROVIDERS: Emergency Provider Emergency Medicine; Family Provider Emergency Medicine; PCP Emergency Medicine
DX: G44.209 Tension-type headache, unspecified, not intractable (principal); Z79.82 Long term (current) use of aspirin; I10 Essential (primary) hypertension; Z88.0 Allergy status to penicillin; F41.9 Anxiety disorder, unspecified
CPT/HCPCS: 71046; 80053; 82550; 82553; 83880; 84443; 84484; 85025; 85378; 93005; 99284; J2405

== ENCOUNTER → 2017-08-19 06:55 | Outpatient (CLI) | payer MEDICAID, SELFPAY ==
--- NOTE | 2017-08-19 07:57 | NM_ITS ---
History and Indications: Hypertension, family history, chest pain, shortness of breath and fatigue Procedure: Patient received a 0.4 mg of Lexiscan, resting heart rate was 156/99, with Lexiscan maximum heart rate achieved was 108 bpm which is less than 85% of the maximum predicted heart rate and a blood pressure was 166/100, with Lexiscan patient complained of shortness of breath. Electrocardiogram: Resting electrocardiogram showed sinus rhythm nonspecific ST-T changes, with Lexiscan there is less than 1.[address] segment depression noted from the baseline EKG. The EKG portion of the Lexiscan Myoview is nondiagnostic. Cardiac stress and resting SPECT images: Cardiac stress and rest SPECT images were obtained using technetium 99 Myoview 10.5 mCi at stress and 10.5 mCi at rest. Gated SPECT further analysis of segmental wall motion and calculation of the ejection fraction also done. Cardiac stress and rest images show a mild fixed defect in the anterior wall with normal contractility is likely secondary to soft tissue attenuation, no reversible ischemia seen. Derived ejection fraction is 59% with no obvious regional wall motion abnormality, right ventricle is normal size and contractility. Conclusion: 1. The EKG portion of the Lexiscan Myoview is nondiagnostic. 2. No obvious scintigraphic evidence of reversible ischemia seen, computer derived ejection fraction is 59% with no obvious regional wall motion abnormality, right ventricle is normal size and contractility.
--- NOTE | 2017-08-19 07:57 | US_ITS ---
US kidney retroperitoneal comp HISTORY: Hypertension ITS.REASON: HTN, SOB,ANGINA ORDERING PHYSICIAN: Edward Tavera MD PATIENT AGE: 42 years COMPARISON: 10/22/2016CT FINDINGS: The right kidney is 12 x 5.3 x 6.2 cm. No hydronephrosis or significant cortical thinning. There is increased echogenicity along the lower pole the right kidney consistent with nephrolithiasis. The left kidney is 11 x 4.7 x 6 cm. There are some cortical thinning along the lower pole of the left kidney with increased echogenicity involving the mid aspect of the left kidney consistent with a renal stone. No hydronephrosis or renal mass evident. IMPRESSION: Bilateral nephrolithiasis. Cortical thinning/scarring along the lower pole the left kidney
--- NOTE | 2017-08-19 08:58 | HMH.ITSHM ---
carvedilol losartan asa prolexa seriquil blood pressure meds
--- NOTE | 2017-08-19 09:41 | CA_ITS ---
PROCEDURE: 2-D M-mode and color Doppler study INDICATIONS FOR THE TEST: Chest pain+ COPD Heart Murmur Tobacco Smoking Palpitations Fatigue Syncope Edema Hypertension+Diabetes Mellitus Rheumatic Fever SOB+RANGEL Obesity Hyperlipidemia Family History HD Additional History PATIENT INFORMATION HEIGHT: 66 WEIGHT:259 GENDER: Female B/P:156/44 2-D/M-MODE INTERPRETATION: 2-D MEASUREMENTS OBSERVED VALUES IN CMS Right Ventricular Dimension (RVDd) 2.2 Interventricular Septum (Thickness)(IVsd) 1.3 Left Ventricular Internal Dimensions(LVIDd) 4.7 Left Ventricular Posterior Wall (Thickness)(LVPWd) 1.2 Aortic Root 3.2 Aortic Cusp Separation 2.0 Left Atrial Dimensions (LAD) 3.5 2D 1. Left atrium is mildly enlarged, left ventricle is normal size, there is mild concentric left ventricular hypertrophy, visually estimated ejection fraction 55% with no obvious regional wall motion abnormality. 2. The right atrium and right ventricle are normal size and contractility. 3. The aortic valve is minimally thickened and fibrosed. 4. The mitral and tricuspid valve leaflets are minimally thickened. 5. The pulmonic valve is poorly visualized 6. No significant pericardial effusion noted. DOPPLER INTERROGATION: Doppler interrogation of the aortic, mitral and tricuspid valvular presence of mild mitral and tricuspid regurgitation, tricuspid and jet velocity is insufficient for calculation of the right ventricular systolic pressure, grade 1 diastolic dysfunction seen without tissue Doppler evidence of raised left atrial pressure, mild aortic insufficiency is also seen. CONCLUSION: 1. Mildly enlarged left atrium, normal left ventricular size, mild concentric left ventricular hypertrophy, visually estimated ejection fraction 55% with no obvious regional wall motion abnormality, grade 1 diastolic dysfunction seen without tissue Doppler evidence of raised left atrial pressure. 2. Mild aortic, mild mitral and tricuspid regurgitation 3. No significant pericardial effusion noted.
== END ==
PROVIDERS: Family Provider Emergency Medicine; PCP Emergency Medicine; Visit Provider Internal Medicine
DX: I10 Essential (primary) hypertension (principal); R51 Headache; I20.8 Other forms of angina pectoris; R06.02 Shortness of breath
CPT/HCPCS: 76770; 78452; 93017; 93306; A9502; J2785

== ENCOUNTER → 2017-12-01 12:56 | Outpatient (CLI) | payer MEDICAID, SELFPAY ==
--- NOTE | 2017-12-01 12:59 | XR_ITS ---
EXAM: XR lumbar spine 2-3V HISTORY: ITS.REASON: pain ORDERING PHYSICIAN: Deb Escamilla PATIENT AGE: 42 years COMPARISON: None FINDINGS: There is minimal lumbar curvature convex left. No fracture or dislocation. No significant degenerative change. Bilateral renal calculi are present with a 4 mm stone along the lower pole the right kidney and a 3 mm stone along the lower pole the left kidney and multiple small stones in the mid and upper poles of the kidneys bilaterally. IMPRESSION: Minimal lumbar curvature convex left. No acute lumbar findings. Bilateral nephrolithiasis
--- NOTE | 2017-12-01 12:59 | XR_ITS ---
XR knee RT 4V HISTORY: ITS.REASON: pain ORDERING PHYSICIAN: Deb Escamilla PATIENT AGE: 42 years COMPARISON: None FINDINGS: No fracture or dislocation. No lytic or blastic change. Normal mineralization. There is very slight decrease in joint space medially suggesting early osteoarthritic change. No spurring. There is minimal osteosclerosis of the medial tibial plateau. Otherwise negative. IMPRESSION: Slight decrease in joint space medially with minimal osteosclerosis of the proximal tibia medially suggesting mild osteoarthritis
== END ==
PROVIDERS: PCP Emergency Medicine; Visit Provider Nurse Practitioner Family
DX: M25.561 Pain in right knee (principal); M54.5 Low back pain
CPT/HCPCS: 72100; 73564

== ENCOUNTER → 2018-02-25 10:21 | Outpatient (CLI) | payer MEDICAID, SELFPAY ==
--- NOTE | 2018-02-25 10:23 | XR_ITS ---
EXAM: XR cervical spine 2V HISTORY: ITS.REASON: neck pain ORDERING PHYSICIAN: Blaine Hernandez PATIENT AGE: 43 years COMPARISON: None FINDINGS: Normal alignment.. There is minimal cervical curvature convex left No fracture or dislocation. No lytic or blastic change. No significant degenerative change. The disc spaces are preserved. IMPRESSION: No acute finding, mild cervical curvature convex left
--- NOTE | 2018-02-25 10:23 | XR_ITS ---
EXAM: XR thoracic spine 2V HISTORY: Back pain ITS.REASON: neck pain Comparison: None FINDINGS: There is mild thoracic scoliosis convex right. No fracture or dislocation. Mild multilevel degenerative disc disease is present with small endplate osteophytes. No lytic or blastic change.. Surgical clips are present in the right upper quadrant. There are bilateral renal calculi with a 6 mm stone along the lower pole the right kidney and a 5 mm stone along the lower pole left kidney. There is mild lumbar scoliosis convex left IMPRESSION: 1. Mild dextroscoliosis of the thoracic spine with degenerative disc disease 2. Bilateral renal calculi
== END ==
PROVIDERS: PCP Emergency Medicine; Visit Provider Nurse Practitioner Family
DX: M25.511 Pain in right shoulder (principal); M25.512 Pain in left shoulder; M54.2 Cervicalgia
CPT/HCPCS: 72040; 72070

== ENCOUNTER 2018-03-02 08:00 | Outpatient (RCR) | payer MEDICAID, SELFPAY ==
--- NOTE | 2018-02-05 13:51 | HMH.OTOPEV ---
OT Inpatient Evaluation Rehab OT Outpatient Eval Start: 02/05/18 13:39 Freq: Status: Active Protocol: Document 02/05/18 13:39 TFRY (Rec: 02/05/18 13:51 TFRY [id number]) Electronically Signed By Kaylee Hyman, OT 02/05/18 13:39 Outpatient Therapy Subjective History Subjective History THIS IS A 42 YEAR RIGHT HANDED FEMALE REFERRED TO OCCUPATIONAL THERAPY FOR BILATERAL SHOULDER PAIN. PATIENT STATES THAT IT HAS BEEN GOING ON FOR THE PAST FEW YEARS BUT HAS GOTTEN WORSE THIS PAST WEEK. PATIENT PRESENTLY WORKS A [employer]TER AND STATES THAT SHE CAN'T AFFORD TO LOSE HER JOB SO SHE CONTINUES TO WORK WITH THE PAIN. Chief Complaint Pain Symptom Type Burning Other Symptoms Relieved By Heat Symptoms Aggravated By Physical Activity Prior Functional Limitations None Current Functional Limitations Reaching Lifting Housework Driving Sleeping Recreation Activity Symptom Description Constant but Variable Level of pain today (0-10) 4 Pain scale - at its best (0-10) 2 Pain scale - at its worst (0-10) 10 Shoulder/Elbow Eval Shoulder Objective Measurements Palpation Tenderness tenderness shoulder exam standard bilateral Shoulder Palpation Findings Tenderness Flexibilty Deficits Upper Trapezius Muscle Length (R) Moderate Tightness (L) Moderate Tightness Shoulder ROM Bilateral Shoulder Abduction Active Range of WFL Motion (degrees) Shoulder Flexion Active Range of Motion WFL (degrees) Query Text: Shoulder External Rotation Active Range WFL of Motion (degrees) Shoulder Internal Rotation Active Range WFL of Motion (degrees) Shoulder Extension Active Range of WFL Motion (degrees) pain with active ROM shoulder exam bilateral standard full ROM shoulder exam standard bilateral Shoulder MMT Anterior Deltoid Strength Grade 4- Good- Shoulder Extension Strength Grade 4- Good- Shoulder Flexion Strength Grade 4- Good- Shoulder Horizontal Abduction Strength 3+ Fair+ Grade Shoulder Horizontal Adduction Strength 3+ Fair+ Grade Shoulder Exte
== END 2018-03-02 08:01 | disposition home or self-care (01) ==
LOC: OT 08:00
PROVIDERS: Family Provider Emergency Medicine; PCP Emergency Medicine; Visit Provider Emergency Medicine
DX: M25.512 Pain in left shoulder (principal); M25.511 Pain in right shoulder
CPT/HCPCS: 97014; 97033; 97110; 97165; G0283

== ENCOUNTER → 2018-06-02 13:22 | Outpatient (CLI) | payer MEDICAID, SELFPAY | PROVIDERS: PCP Nurse Practitioner Family; Visit Provider Internal Medicine | DX: R10.9 Unspecified abdominal pain (principal); R42 Dizziness and giddiness; R55 Syncope and collapse | CPT/HCPCS: 87086; 93270 ==

== ENCOUNTER → 2018-06-09 18:12 | Outpatient (CLI) | payer MEDICAID, SELFPAY | PROVIDERS: Visit Provider Physician Assistant | DX: M54.5 Low back pain (principal) | CPT/HCPCS: 87086 ==

== ENCOUNTER → 2018-06-10 12:59 | Outpatient (CLI) | payer MEDICAID, SELFPAY ==
--- NOTE | 2018-06-10 13:01 | CA_ITS ---
PROCEDURE: 2-D M-mode and color Doppler study INDICATIONS FOR THE TEST: Chest pain COPD Heart Murmur Tobacco Smoking Palpitations Fatigue+ Syncope+ Edema Hypertension+Diabetes Mellitus Rheumatic Fever SOB RANGEL+Obesity Hyperlipidemia Family History HD Additional History PATIENT INFORMATION HEIGHT: 66 WEIGHT:264 GENDER: Female B/P:91/57 2-D/M-MODE INTERPRETATION: 2-D MEASUREMENTS OBSERVED VALUES IN CMS Right Ventricular Dimension (RVDd) 2.1 Interventricular Septum (Thickness)(IVsd) 1.5 Left Ventricular Internal Dimensions(LVIDd) 4.0 Left Ventricular Posterior Wall (Thickness)(LVPWd) 1.5 Aortic Root 2.9 Aortic Cusp Separation 1.9 Left Atrial Dimensions (LAD) 4.4 2D 1. Left atrium is mildly enlarged, left ventricle is normal size, mild concentric left ventricular hypertrophy, visually estimated ejection fraction of 55% with no regional wall motion abnormality. 2. The right atrium and the ventricular normal size and contractility. 3. The aortic valve is thickened and calcified leaflet continue to display good mobility. 4. The mitral and tricuspid valvular grossly normal. 5. The pulmonic valve is poorly visualized. 6. No significant pericardial effusion noted. DOPPLER INTERROGATION: Doppler interrogation of the aortic, mitral and tricuspid valvular presence of mild mitral and tricuspid regurgitation, tricuspid regurgitation jet velocity is inadequate for calculation of the right ventricular systolic pressure, diastolic parameters are inconclusive. Mild aortic insufficiency is also seen. CONCLUSION: 1. Mildly enlarged left atrium, normal left ventricular size, mild concentric left ventricular hypertrophy, visually estimated ejection fraction 55% with no regional wall motion abnormality, diastolic parameters are inconclusive. 2. Mild aortic, mild mitral and tricuspid regurgitation. 3. No significant pericardial effusion noted.
--- NOTE | 2018-06-10 13:01 | CI_ITS ---
Cerebrovascular Exam Indications: 780.2 Syncope and collapse. 780.4 Dizziness and giddiness. IMPRESSIONS 1. The bilateral vertebral arteries are patent with normal antegrade flow. 2. Study suggests less than 20% stenosis involving the right internal carotid artery. 3. Study suggests less than 20% stenosis involving the left internal carotid artery. History: Risk factors: Hypertension. Carotid duplex study. Complete study and Doppler flow study including spectral analysis, color and banegas scale imaging. Location: Vascular laboratory. Patient status: Outpatient. Tables: Arterial flow: + +--------+--------+ Location V sys V ed + +--------+--------+ Right CCA - proximal 90.4cm/s 24.4cm/s + +--------+--------+ Right CCA - distal 97.4cm/s 31.4cm/s + +--------+--------+ Right ECA 111cm/s 19.6cm/s + +--------+--------+ Right ICA - proximal 131cm/s 40.9cm/s + +--------+--------+ Right ICA - mid 128cm/s 52.6cm/s + +--------+--------+ Right ICA - distal 145cm/s 63.6cm/s + +--------+--------+ Right vertebral 56.6cm/s 18.1cm/s + +--------+--------+ Left CCA - proximal 116cm/s 27.5cm/s + +--------+--------+ Left CCA - distal 96.6cm/s 35.4cm/s + +--------+--------+ Left ECA 78.6cm/s 14.9cm/s + +--------+--------+ Left ICA - proximal 139cm/s 45.6cm/s + +--------+--------+ Left ICA - mid 127cm/s 49.5cm/s + +--------+--------+ Left ICA - distal 142cm/s 53.4cm/s + +--------+--------+ Left vertebral 61.3cm/s 18.1cm/s + +--------+--------+ Velocity ratios: + + + + + + Right, V sys Right, V ed Left, V sys Left, V ed + + + + + + Max ICA/dist CCA 1.49 2.03 1.47 1.51 + + + + + + (Report amended ) Electronically signed by: Taras Rosa [id number]
== END ==
PROVIDERS: PCP Emergency Medicine; Visit Provider Urology
DX: R55 Syncope and collapse (principal)
CPT/HCPCS: 93306; 93880

== ENCOUNTER → 2018-07-23 13:39 | Outpatient (CLI) | payer MEDICAID, SELFPAY ==
[2018-07-23 14:27] LABS: Alanine Aminotransferase 67 U/L (12-78); Albumin/Globulin Ratio 1.1 (1.1-1.8); Alkaline Phosphatase 86 U/L (46-116); Anion Gap 12.8 mEq/L (5-15); Aspartate Amino Transferase 50 U/L (15-37); Bilirubin,Total 0.7 mg/dL (0.2-1.0); Blood Urea Nitrogen 25 mg/dL (7-18); Calcium 8.9 mg/dL (8.5-10.1); Carbon Dioxide 28 mmol/L (21.0-32.0); Chloride 104 mmol/L (98-107); Creatinine,Serum 1.21 mg/dL (0.55-1.02); Estimated Glomerular Filt Rate 49 ml/min (>60); GFR (African American) 59 ML/MIN (>60); Globulin 3.7 gm/dl (1.3-3.2); Glucose 97 mg/dL (74-106); Sodium 142 mmol/L (136-145); Total Protein,Serum 7.7 gm/dL (6.4-8.2)
[2018-07-23 14:54] LABS: Potassium 2.8 mmoL/L (3.5-5.1)
[2018-07-26 08:25] LABS: Vitamin B12 360 pg/mL (232-1245)
[2018-07-26 08:26] LABS: Vitamin D 25 Hydroxy 8.5 ng/mL (30.0-100.0)
== END ==
PROVIDERS: Visit Provider Nurse Practitioner Psychiatric/Mental Health
DX: R53.83 Other fatigue (principal)
CPT/HCPCS: 36415; 80053; 82607; 82652

== ENCOUNTER 2018-09-01 10:15 | Observation (INO) ==
--- NOTE | 2018-09-01 10:32 | Emergency Department Note ---
ED Disposition Clinical Impression: Hypotension Qualifiers: Hypotension type: unspecified hypotension type Qualified Code(s): I95.9 - Hypotension, unspecified Acute renal failure Qualifiers: Acute renal failure type: unspecified Qualified Code(s): N17.9 - Acute kidney failure, unspecified Disposition: Admitted As Inpatient Condition on Discharge: Serious Referrals: Mahesh Horton MD [Primary Care Provider] - - Critical Care Critical Care Time: Yes Attestation: On , the high probability of a clinically significant, sudden or life threatening deterioration of the following system(s) required my full and direct attention, intervention and personal management. The time I documented below is in addition to time spent performing reported procedures but includes the fo llowing listed in this critical care notation. Vital system(s) involved:: Circulatory Failure, Renal Failure My critical care processes included: Assessment & monitoring of V/S, Initial and Re-exams, Data Review/Interpretation, Coordinating Care, Medication Orders and management, Documentation Medical Decision Making - Mark Inquiry Pt receiving controlled substance: No Vital Signs: 09/01/18 10:18 09/01/18 10:44 09/01/18 11:02 Temperature 98.3 F Temperature Source Oral Pulse Rate [Right Radial] 75 64 62 Respiratory Rate 20 18 18 Blood Pressure [Left Arm] Blood Pressure [Right Arm] 80/50 L 79/39 L 77/43 L Blood Pressure Mean [Left Arm] Blood Pressure Mean [Right Arm] 60 52 54 Blood Pressure Source [Left Arm] Blood Pressure Source [Right Arm] Manual Cuff/ Auscultation Automatic Cuff Automatic Cuff Blood Pressure Position [Left Arm] Blood Pressure Position [Right Arm] Sitting Sitting Sitting 02 Sat by Pulse Oximetry 97 97 97 Oxygen Delivery Method Room Air Room Air Room Air 09/01/18 11:40 09/01/18 12:00 09/01/18 12:36 Temperature Temperature Source Pulse Rate [Right Radial] 62 57 L 58 L Respiratory Rate 18 18 18 Blood Pressure [Left Arm] 70/37 L 78/37 L Blood Pressure [Right Arm] 80/58 L Blood Pressure Mean [Left Arm] 48 50 Blood Pressure Mean [Right Arm] 65 Blood Pressure Source [Left Arm] Automatic Cuff Automatic Cuff Blood Pressure Source [Right Arm] Manual Cuff/ Auscultation Blood Pressure Position [Left Arm] Sitting Sitting Blood Pressure Position [Right Arm] Sitting 02 Sat by Pulse Oximetry 96 98 98 Oxygen Delivery Method Room Air Room Air Room Air 09/01/18 13:05 Temperature Temperature Source Pulse Rate [Right Radial] 58 L Respiratory Rate 18 Blood Pressure [Left Arm] 90/48 L Blood Pressure [Right Arm] Blood Pressure Mean [Left Arm] 62 Blood Pressure Mean [Right Arm] Blood Pressure Source [Left Arm] Automatic Cuff Blood Pressure Source [Right Arm] Blood Pressure Position [Left Arm] Sitting Blood Pressure Position [Right Arm] 02 Sat by Pulse Oximetry 98 Oxygen Delivery Method Room Air - Lab Data Lab Results 09/01/18 10:30: WBC 10.9 H, RBC 3.39 L, Hgb 10.5 L, Hct 31.2 L, MCV 92.0, MCH 30.8, MCHC 33.5, RDW 13.6, Plt Count 279, MPV 6.4 L, Neut % (Auto) 79.8, Lymph % (Auto) 14.1, [place] % (Auto) 3.9, Eos % (Auto) 2.0, Baso % (Auto) 0.2, Neut # (Auto) 8.7 H, Lymph # (Auto) 1.5, [place] # (Auto) 0.4, Eos # (Auto) 0.2, Baso # (Auto) 0.0 09/01/18 10:30: Sodium 138, Potassium 2.8 L*, Chloride 99, Carbon Dioxide 27, Anion Gap 14.8, BUN 31 H, Creatinine 2.56 H, Estimated Creat Clear 27, Estimated GFR 21 L, Est GFR ( Amer) 25 L, Glucose 110 H, Calcium 8.5, Total Bilirubin 1.1 H, AST 23, ALT 65, Alkaline Phosphatase 70, Troponin I < 0.02, Total Protein 6.9, Albumin 3.5, Globulin 3.4 H, Albumin/Globulin Ratio 1.0 L 09/01/18 10:30: Total Creatine Kinase 122 09/01/18 11:00: Lactate 1.4 Result diagrams: 09/01/18 10:30 09/01/18 10:30 Orders (Tests/Meds): ED MEDICATIONS Generic Name Dose Route Start Last Admin Trade Name Freq PRN Reason Stop Dose Admin Sodium Chloride 1,000 mls @ 150 mls/hr 09/01/18 12:00 09/01/18 13:06 Sod Chlor 0.9% 1000ml Bag IV 10/01/18 11:59 150 mls/hr .Q6H40M [place] Administration Potassium Chloride/Water 100 mls @ 50 mls/hr 09/01/18 12:00 09/01/18 12:01 Potassium Chloride 20meq/100ml Ivpb IV 09/01/18 13:59 50 mls/hr ONCE ONE Administration Sodium Chloride 10 ml 09/01/18 10:36 Saline Flush 10ml Syringe IV 09/01/18 22:37 NEEDED PRN Maintain IV Site Discontinued Medications Generic Name Dose Route Start Last Admin Trade Name Freq PRN Reason Stop Dose Admin Hydrocortisone Sodium Succinate 100 mg 09/01/18 11:30 09/01/18 11:35 Solu-Cortef 100mg Vial IV 09/01/18 11:31 100 mg ONCE ONE Administration Sodium Chloride 1,000 mls @ 999 mls/hr 09/01/18 10:45 09/01/18 10:38 Sod Chlor 0.9% 1000ml Bag IV 09/01/18 11:45 999 mls/hr .Q1H1M [place] Administration Norepinephrine Bitartrate 8 mg 258 mls @ 3.87 mls/hr 09/01/18 12:15 / Dextrose IV 10/01/18 12:14 .Q24H [place] Protocol 2 MCG/MIN Potassium Chloride 60 meq 09/01/18 11:54 Klor-Con 20meq Tablet PO 09/01/18 11:55 ONCE ONE Sodium Chloride 1,000 ml 09/01/18 10:50 09/01/18 11:03 Sod Chlor 0.9% 1000ml Bag IV 09/01/18 10:51 1,000 ml BOLUS ONE Administration Sodium Chloride 1,000 ml 09/01/18 11:57 09/01/18 12:02 Sod Chlor 0.9% 1000ml Bag IV 09/01/18 11:58 1,000 ml BOLUS ONE Administration ORDERS Category Date Time Status Adrenocorticotropic Hormone Routine Lab 09/01/18 11:45 Received Cortisol Routine Lab 09/01/18 11:45 Received Renin Routine Lab 09/01/18 11:45 Received Urinalysis and Microscopic Stat Lab 09/01/18 10:52 Ordered Blood Culture Stat Micro 09/01/18 11:23 Received US Kidney Stat Ultrasound 09/01/18 12:23 Ordered - Radiology Data #1 Image(s): Chest, Ankle (bilateral) Image Reviewed: Yes I have reviewed radiologist's interpretation Preliminary Findings: Normal/NAD Bilateral ankles: Degenerative changes without fractures or dislocations. - US Data US Images: Renal Findings Narrative: As per [facility] procedure, ultrasound report received from elevator service technician: Thinning of both renal cortices, decreased flow bilaterally. No hydronephrosis. Stone in the left kidney. No signs of ureteral calculi. - ECG Data Tracing #1 EKG interpreted by Alfonso Xiao MD: Rhythm: sinus Rate: 62 [place]: normal Ectopy: none Conduction: normal ST Segment Changes: none T Wave Changes: none Q Waves: none No evidence of acute ischemia or injury Voltage criteria for LVH Prior electrocardiagrams reviewed. No change from prior tracings. - Physician Consults Physician Consulted: Sol Time: 12:29 Reason -: Pt condition Comment/Response: Discussed clinical findings. He prefers the patient not be started on pressors at this time. Order for levo fed discontinued. Continue IV fluids, CPK level, renal ultrasound. Call him back with these results. Additional Consult: Sol Time: 13:15 Reason -: Admission Comment/Response: Blood pressure 90 at this time. Agrees to admit the patient to the hospital. We discussed the patient's clinical information, including history, exam, laboratory and radiology results and ED course. Per hospital procedure, I will write temporary bridge inpatient orders on the patient. Specific orders requested by the admitting physician: Continue IV fluids, repeat BMP at 10 PM. Medical Decision Narrative: ER 06/01/18 Syncope, hypokalemia Workup for syncope included: Head CT: IMPRESSION: 1. No acute intracranial findings. 2. Maxillary sinus disease on the right Dictated By: Taras Rosa MD Signed By: <Electronically signed by Taras Rosa MD in [place]> 06/02/18 3800 ECHO: CONCLUSION: 1. Mildly enlarged left atrium, normal left ventricular size, mild concentric left ventricular hypertrophy, visually estimated ejection fraction 55% with no regional wall motion abnormality, diastolic parameters are inconclusive. 2. Mild aortic, mild mitral and tricuspid regurgitation. 3. No significant pericardial effusion noted. Dictated By: Carl Corrigan MD Signed By: <Electronically signed by Carl Corrigan MD in [place]> 06/10/18 3987 Carotid Duplex: IMPRESSIONS 1. The bilateral vertebral arteries are patent with normal antegrade flow. 2. Study suggests less than 20% stenosis involving the right internal carotid artery. 3. Study suggests less than 20% stenosis involving the left internal carotid artery. Electronically signed by: Taras Rosa [id number] Dictated By: Taras Rosa MD Signed By: 06/10/18 1703 06/10/18 1703 Has also had prior Myoview stress: Myoview: Conclusion: 1. The EKG portion of the Lexiscan Myoview is nondiagnostic. 2. No obvious scintigraphic evidence of reversible ischemia seen, computer derived ejection fraction is 59% with no obvious regional wall motion abnormality, right ventricle is normal size and contractility. Dictated By: Carl Corrigan MD Signed By: <Electronically signed by Carl Corrigan MD in [place]> 08/20/17 1357 Recent problems with back pain. Recent steroids: 06/07/[address] Mora for sinusitis on head CT that was done for syncope 07/30 decadron injx, prednisone 20 bid X 5d PCP 08/11 ER IV solumedrol 08/15 ER IM solumedrol + medrol dose-agustina 6 days 08/25 IM solumedrol General Adult HPI - General Stated complaint: keeps passing out, hands numb Time Seen by Provider: 09/01/18 10:31 - History of Present Illness HPI narrative: Woke up at 4 AM and got up to go to bed, hearing sounded muffled, "like before you are going to pass out". She had a syncopal episode and woke up on the floor. The same thing happened a couple of more times, always while standing. She has a bruise on her left arm, her ankles hurt, small bruise on the back of her head. Denies any other injuries. No neck pain. States hands feel tingly. States she has not recently been ill, no vomiting, diarrhea, fever, chest pain, cough, shortness of breath. States that she has a history of hypertension and has had no recent medication changes. Had syncope 06/01/2018 and was seen in this emergency department. - Related Data Home Medications Medication Instructions Recorded Confirmed Aspirin [Aspir 81] 81 mg PO DAILY 07/25/17 08/30/18 Losartan Potassium [Cozaar] 100 mg PO DAILY 02/28/18 08/30/18 hydroCHLOROthiazide 50 mg PO DAILY 02/28/18 08/30/18 [Hydrochlorothiazide 50mg Tab] Previous Rx's Medication Instructions Recorded acetaminophen ER 650 mg 650 mg PO Q8H PRN #90 tab 03/23/18 tablet,extended release diltiazem CD 180 mg 180 mg PO DAILY #30 cap 06/30/18 capsule,extended release 24 hr tizanidine 4 mg capsule 4 mg PO Q8H PRN #21 cap 08/13/18 Methocarbamol [Robaxin 750mg Tab] 750 mg PO BIDP PRN #30 tab 08/15/18 escitalopram 20 mg tablet 20 mg PO DAILY #90 tab 08/20/18 quetiapine 100 mg tablet 100 mg PO QHS #30 tab 08/20/18 acetaminophen 300 mg-codeine 30 mg 1 tab PO Q6H PRN #28 tab 08/26/18 tablet carvedilol 12.5 mg tablet 12.5 mg PO BID #180 tab 08/30/18 ibuprofen 800 mg tablet 800 mg PO TID #90 tab 08/30/18 Allergies Allergy/AdvReac Type Severity Reaction Status Date / Time amlodipine Allergy Intermediate swelling Verified 08/30/18 15:27 legs and feet Penicillins [PENICILLINS] Allergy Intermediate I-RASH Verified 08/30/18 15:27 metoclopramide [From REGLAN] Allergy Mild NA-HALLUCIN Verified 08/30/18 15:27 ATIONS amoxicillin Allergy Verified 08/30/18 15:27 [facility] History - Hepatitis A Screen Attestation statement:: This patient has been screened for Hepatitis A risk factors. I have reviewed the patient's past medical history: Yes Medical History: Reports:: Anxiety, Depression, Hypertension, Kidney Stones Denies:: Cancer, Diabetes Mellitus Type 1, Diabetes Mellitus Type 2, Gastrointestinal Bleed, Internal Pacemaker, MRSA, Seizures Other Medical History: Denies: Blood Transfusion Reaction Comment: Anxiety and Depression Laterality Cases: Bilateral: Tonsillectomy Other Surgeries: Yes: Appendectomy, Cholecystectomy, Hysterectomy-Total, Other. No: Pacemaker Amputation: No Fractures: No Comment: lithotripsy x5 - Social History Smoking Status: Never smoker # Packs/Day (cigarettes): 1 Alcohol Intake: never Alcohol Intake Frequency:: other Substance Use Type: painkillers, former substance user Occupational Status: employed Housing: house Household Members: family - Psychiatric History Pschychiatric History:: Reports:: Anxiety, Depression Family Hx:: Stroke ROS Obtained: Yes All systems reviewed & no additional complaints - Constitutional Constitutional: Denies fever(s) - Cardiovascular Cardiovascular: Denies chest pain - Respiratory Respiratory: No dyspnea - Gastrointestinal Gastrointestingal: Denies: abdominal pain, vomiting blood, bright red blood in stools, black, tarry stools, vomiting - Genitourinary Female Genitourinary: Denies abnormal vaginal bleeding, Denies difficulty voiding - Musculoskeletal Musculoskeletal: Reports back pain, Denies neck pain - Neurologic Neurologic: Denies headache(s), Reports tingling (Hands) Physical Exam - General General appearance: alert, in no apparent distress - Head Head exam: atraumatic, normocephalic - Eye Eye exam: Present: normal appearance, EOMI - ENT ENT exam: Present: mucous membranes dry - Neck Neck exam: Present: normal inspection, trachea midline - Chest Chest inspection: Present: normal inspection, symmetric chest wall rise - Respiratory Respiratory exam: Present: normal lung sounds bilaterally. Absent: respiratory distress - Cardiovascular Cardiovascular exam: Present: regular rate, normal rhythm, normal heart sounds - Abdominal Exam Abdominal exam: Present: soft. Absent: distention, tenderness, guarding - Extremities Exam Extremities exam: Present: normal inspection, full ROM, other (Tenderness both ankles without edema or ecchymosis) - Neurological Exam Neurological exam: Present: alert, oriented X3, CN II-XII intact. Absent: motor sensory deficit - Psychiatric Psychiatric exam: Present: normal affect, normal mood - Skin Skin exam: Present: warm
[2018-09-01 10:42] LABS: Basophils % 0.2 % (0.1-2.0); Eosinophils # 0.2 K/mm3 (0.0-0.4); Hematocrit 31.2 % (37.0-47.0); Hemoglobin 10.5 g/dL (12.2-16.2); Lymphocytes # 1.5 K/mm3 (0.7-4.5); Lymphocytes % 14.1 % (10-50); Mean Corpuscular HGB Conc 33.5 g/dL (31.8-35.4); Mean Corpuscular Hemoglobin 30.8 pg (27.0-31.2); Mean Platelet Volume 6.4 fl (7.4-10.4); Monocytes # 0.4 K/mm3 (0.1-1.0); Monocytes % 3.9 % (1.7-9.3); Neutrophils # 8.7 K/mm3 (1.8-7.8); Neutrophils % 79.8 % (37.0-80.0); Platelet Count 279 K/mm3 (142-424); Red Blood Count 3.39 M/mm3 (4.20-5.40); Red Cell Distribution Width 13.6 % (11.5-17.5); White Blood Count 10.9 K/mm3 (4.8-10.8)
[2018-09-01 11:22] LABS: Alanine Aminotransferase 65 U/L (12-78); Albumin Level 3.5 gm/dL (3.4-5.0); Alkaline Phosphatase 70 U/L (46-116); Anion Gap 14.8 mEq/L (5-15); Aspartate Amino Transferase 23 U/L (15-37); Bilirubin,Total 1.1 mg/dL (0.2-1.0); Blood Urea Nitrogen 31 mg/dL (7-18); Calcium 8.5 mg/dL (8.5-10.1); Carbon Dioxide 27 mmol/L (21.0-32.0); Chloride 99 mmol/L (98-107); Globulin 3.4 gm/dl (1.3-3.2); Glucose 110 mg/dL (74-106); Sodium 138 mmol/L (136-145); Total Protein,Serum 6.9 gm/dL (6.4-8.2)
[2018-09-01 11:24] LABS: Potassium 2.8 mmoL/L (3.5-5.1)
[2018-09-01 13:46] LABS: Microscopic, Urine URINE MICROSCOPIC (MICROSCOPIC)
[2018-09-01 14:03] LABS: Appearance,Urine CLEAR (Clear); Bilirubin,Urine Negative (Negative); Blood, Urine Negative (Negative); Color,Urine YELLOW (Yellow); Glucose,Urine (UA) Negative (Negative); Ketones,Urine Negative (Negative); Leukocyte Esterase,Urine TRACE (Negative); PH,Urine 5.5 (5.0-8.5); Protein,Urine TRACE (Negative); Urobilinogen,Urine 0.2 EU/dl (0.2)
[2018-09-01 14:45] LABS: Bacteria,Urine Trace /lpf
--- NOTE | 2018-09-01 15:52 | Pharmacy Consult Notes ---
[facility] Pharmacy VTE Monitoring - Patient Demographics Admission date: 09/01/18 Report Date: 09/01/18 Time: 15:52 Allergies/Adverse Reactions: Patient Allergies amlodipine Allergy (Intermediate, Verified 08/30/18 15:27) swelling legs and feet Penicillins [PENICILLINS] Allergy (Intermediate, Verified 08/30/18 15:27) I-RASH metoclopramide [From REGLAN] Allergy (Mild, Verified 08/30/18 15:27) NA-HALLUCINATIONS amoxicillin Allergy (Verified 08/30/18 15:27) Height: 1.68 m Weight: 121.166 kg Patient Problems: Current Active Problems (Updated 09/01/18 @ 13:17 by Alfonso Xiao MD) Hypotension (Acute) Acute renal failure (Acute) - VTE Risk Labs: VTE Related Lab Results Hgb 10.5 g/dL (12.2-16.2) L 09/01/18 10:30 Hct 31.2 % (37.0-47.0) L 09/01/18 10:30 Plt Count 279 K/mm3 (142-424) 09/01/18 10:30 BUN 31 mg/dL (7-18) H 09/01/18 10:30 Creatinine 2.56 mg/dL (0.55-1.02) H 09/01/18 10:30 Estimated Creat Clear 27 mL/min (50-200) 09/01/18 10:30 Was VTE Risk Assessment Performed: Yes VTE Score: 4 VTE Risk Level: Low Risk Clinical Trial Participant: No - Prophylaxis VTE Prophylaxis Ordered?: Yes Types of VTE Prophylaxis: TEDS Knee High Location of Applied Device: Bilateral Lower Extremeties
--- NOTE | 2018-09-01 20:28 | History & Physical Report ---
*Admission Date: 09/01/18 *Chief complaint: weakness *History of present illness: this wf had apparent syncopal episode -guillermina up at 4 AM and got up to go to bed, hearing sounded muffled, "like before you are going to pass out". She had a syncopal episode and woke up on the floor. The same thing happened a couple of more times, always while standing. She has a bruise on her left arm, her ankles hurt, small bruise on the back of her head. Denies any other injuries. No neck pain. States hands feel tingly. States she has not recently been ill, no vomiting, diarrhea, fever, chest pain, cough, shortness of breath. States that she has a history of hypertension and has had no recent medication changes. Had syncope 06/01/2018 and was seen in this emergency department. [facility] History I have reviewed the patient's past medical history: Yes Medical History: Reports:: Anxiety, Depression, Hyperlipidemia, Hypertension, Kidney Stones Denies:: Cancer, Diabetes Mellitus Type 1, Diabetes Mellitus Type 2, Gastrointestinal Bleed, Internal Pacemaker, MRSA, Seizures *Have you ever received a pneumonia vaccine?: No *Have you received a flu vaccine this season?: No Other Medical History: Denies: Blood Transfusion Reaction Laterality Cases: Bilateral: Tonsillectomy Other Surgeries: Yes: Appendectomy, Cholecystectomy, Hysterectomy-Total, Other (lithotripsy x6). No: Pacemaker Amputation: No Fractures: No - *Social History Educational Level: Completed High School Smoking Status: Never smoker # Packs/Day (cigarettes): 1 Alcohol Intake: never Alcohol Intake Frequency:: other Substance Use Type: painkillers, former substance user *Occupational Status:: employed Housing: house Household Members: family *Travel in the last 8 weeks: None - Psychiatric History Expresses thoughts of harming self/others: None Suicide Plan Description: No Plan Pschychiatric History:: Reports:: Anxiety, Depression Family Hx:: Stroke Review of Systems - Review of Systems Review of systems:: pertinent systems reviewed and negative unless documented below - Constitutional Reports weakness, Denies fever(s) - Eyes Denies change in vision - ENT Denies sore throat - *Cardiovascular Denies chest pain at rest, Denies shortness of breath - *Respiratory Denies cough - *Gastrointestinal Denies vomiting - *Genitourinary Denies abnormal vaginal bleeding - *Musculoskeletal Denies joint pain - Integumentary/Breasts Denies rash - *Neurologic Reports tingling/numbness/burning sensations, Reports tingling (Hands), Denies headache(s), Denies seizure-like activity - Psychiatric Denies anxiety Meds Home Medications Medication Instructions Recorded Confirmed Type Aspirin [Aspir 81] 81 mg PO DAILY PRN 07/25/17 09/01/18 History Losartan Potassium [Cozaar] 100 mg PO DAILY 02/28/18 09/01/18 History hydroCHLOROthiazide 50 mg PO DAILY 02/28/18 09/01/18 History [Hydrochlorothiazide 50mg Tab] acetaminophen ER 650 mg 650 mg PO Q8H PRN #90 tab 03/23/18 09/01/18 Rx tablet,extended release tizanidine 4 mg capsule 4 mg PO Q8H PRN #21 cap 08/13/18 09/01/18 Rx acetaminophen 300 mg-codeine 30 mg 1 tab PO Q6H PRN #28 tab 08/26/18 09/01/18 Rx tablet carvedilol 12.5 mg tablet 12.5 mg PO BID #180 tab 08/30/18 09/01/18 Rx Escitalopram Oxalate 20 mg PO DAILY 09/01/18 09/01/18 History Ibuprofen [Ibuprofen 800mg 800 mg PO TID PRN 09/01/18 09/01/18 History Tablet] Quetiapine Fumarate [Seroquel] 100 mg PO QHS 09/01/18 09/01/18 History dilTIAZem HCl [Diltiazem 180mg 180 mg PO DAILY 09/01/18 09/01/18 History 24Hr ER Cap] Allergies Allergy/AdvReac Type Severity Reaction Status Date / Time amlodipine Allergy Intermediate swelling Verified 08/30/18 15:27 legs and feet Penicillins [PENICILLINS] Allergy Intermediate I-RASH Verified 08/30/18 15:27 metoclopramide [From REGLAN] Allergy Mild NA-HALLUCIN Verified 08/30/18 15:27 ATIONS amoxicillin Allergy Verified 08/30/18 15:27 Exam Vital signs and Labs for Last 24 Hours: Temp Pulse Resp BP Pulse Ox 97.8 F 73 15 79/45 L 95 09/01/18 15:54 09/01/18 18:45 09/01/18 18:45 09/01/18 18:45 09/01/18 15:54 Laboratory Results - last 24 hr 09/01/18 10:30: WBC 10.9 H, RBC 3.39 L, Hgb 10.5 L, Hct 31.2 L, MCV 92.0, MCH 30.8, MCHC 33.5, RDW 13.6, Plt Count 279, MPV 6.4 L, Neut % (Auto) 79.8, Lymph % (Auto) 14.1, [place] % (Auto) 3.9, Eos % (Auto) 2.0, Baso % (Auto) 0.2, Neut # (Auto) 8.7 H, Lymph # (Auto) 1.5, [place] # (Auto) 0.4, Eos # (Auto) 0.2, Baso # (Auto) 0.0 09/01/18 10:30: Sodium 138, Potassium 2.8 L*, Chloride 99, Carbon Dioxide 27, Anion Gap 14.8, BUN 31 H, Creatinine 2.56 H, Estimated Creat Clear 27, Estimated GFR 21 L, Est GFR ( Amer) 25 L, Glucose 110 H, Calcium 8.5, Total Bilirubin 1.1 H, AST 23, ALT 65, Alkaline Phosphatase 70, Troponin I < 0.02, Total Protein 6.9, Albumin 3.5, Globulin 3.4 H, Albumin/Globulin Ratio 1.0 L 09/01/18 10:30: Total Creatine Kinase 122 09/01/18 11:00: Lactate 1.4 09/01/18 13:42: Urine Color Yellow, Urine Appearance Clear, Urine pH 5.5, Ur Specific [place] 1.020, Urine Protein Trace, Urine Glucose (UA) Negative, Urine Ketones Negative, Urine Blood Negative, Urine Nitrate Negative, Urine Bilirubin Negative, Urine Urobilinogen 0.2, Ur Leukocyte Esterase Trace, Urine WBC 10-20, Ur Squamous Epith Cells 5-10, Urine Bacteria Trace I & O for Last 24 hours: Intake & Output 08/30/18 08/31/18 09/01/18 09/02/18 11:59 11:59 11:59 11:59 Intake Total 3607 / 3607 Output Total 400 / 400 Balance 3207 / 3207 Weight 259 lb 267 lb 2 oz - Constitutional no acute distress, obese - *Routine HEENT Exam Head: Present: normocephalic Eye: Present: EOMI, PERRL ENT: Present: mucous membranes dry - *Routine Neck Exam Present: supple. Absent: JVD - *Routine Respiratory Exam Present: CTA bilaterally - *Routine Cardiovascular Exam Present: RRR, murmur - *Routine Abdominal Exam Present: soft - *Routine Extremities Exam Present: full ROM - *Routine Skin Exam Present: intact - *Routine Neurological Exam Present: alert, oriented X3, CN II-XII intact, moving all extremities - Routine Psychiatric Exam Present: normal affect Assessment and Plan (1) Hypotensive episode Current visit: Yes Status: Acute Category: Medical Code(s): I95.9 - Hypotension, unspecified (2) Acute renal failure Current visit: Yes Status: Acute Qualifiers: Acute renal failure type: unspecified Qualified Code(s): N17.9 - Acute kidney failure, unspecified Category: Medical Code(s): N17.9 - Acute kidney failure, unspecified (3) Obesity Current visit: Yes Status: Acute Qualifiers: Obesity type: due to excess calories Obesity classification: adult class 3 (BMI >= 40) Serious obesity comorbidity presence: with serious comorbidity Body mass index: BMI 40.0-44.9 Qualified Code(s): E66.01 - Morbid (severe) obesity due to excess calories; Z68.41 - Body mass index (BMI) 40.0-44.9, adult Category: Medical Code(s): E66.9 - Obesity, unspecified (4) Anemia Current visit: Yes Status: Acute Qualifiers: Anemia type: unspecified type Qualified Code(s): D64.9 - Anemia, unspecified Category: Medical Code(s): D64.9 - Anemia, unspecified (5) Elevated erythrocyte sedimentation rate Current visit: Yes Status: Acute Category: Medical Code(s): R70.0 - Elevated erythrocyte sedimentation rate (6) Hyponatremia Current visit: Yes Status: Acute Category: Medical Code(s): E87.1 - Hypo- osmolality and hyponatremia (7) UTI (urinary tract infection) Current visit: Yes Status: Acute Qualifiers: Urinary tract infection type: acute cystitis Hematuria presence: without hematuria Qualified Code(s): N30.00 - Acute cystitis without hematuria Category: Medical Code(s): N39.0 - Urinary tract infection, site not specified (8) CKD (chronic kidney disease) stage 2, GFR 60-89 ml/min Current visit: Yes Status: Acute Category: Medical Code(s): N18.2 - Chronic kidney disease, stage 2 (mild)
[2018-09-01 21:12] LABS: Amphetamine/Metha Screen,Urine Negative ng/mL (<1000); Barbiturates Screen,Urine Negative ng/mL (<200); Benzodiazepines Screen,Urine Negative ng/mL (<200); Cannabinoid Screen,Urine Negative ng/mL (<50); Cocaine Screen,Urine Negative ng/mL (<300); Methadone Screen,Urine Negative ng/mL (<300); Opiate Screen,Urine Positive ng/mL (<300); Phencyclidine Screen,Urine Negative ng/mL (<25)
[2018-09-01 22:34] LABS: Anion Gap 13.8 mEq/L (5-15)
[2018-09-01 22:52] LABS: Potassium 2.8 mmoL/L (3.5-5.1)
[2018-09-01 22:54] LABS: Calcium 7.2 mg/dL (8.5-10.1)
[2018-09-02 06:51] LABS: Basophils % 0.3 % (0.1-2.0); Eosinophils # 0.1 K/mm3 (0.0-0.4); Eosinophils % 2.1 % (0.1-12.0); Hematocrit 27.6 % (37.0-47.0); Lymphocytes # 2.2 K/mm3 (0.7-4.5); Mean Corpuscular HGB Conc 34.1 g/dL (31.8-35.4); Mean Corpuscular Hemoglobin 31.6 pg (27.0-31.2); Mean Corpuscular Volume 92.8 fl (81-99); Mean Platelet Volume 6.6 fl (7.4-10.4); Monocytes # 0.3 K/mm3 (0.1-1.0); Monocytes % 5.2 % (1.7-9.3); Neutrophils # 3.7 K/mm3 (1.8-7.8); Neutrophils % 57.5 % (37.0-80.0); Platelet Count 208 K/mm3 (142-424); Red Blood Count 2.97 M/mm3 (4.20-5.40); Red Cell Distribution Width 13.4 % (11.5-17.5); White Blood Count 6.4 K/mm3 (4.8-10.8)
[2018-09-02 07:00] LABS: Hemoglobin 9.4 g/dL (12.2-16.2)
[2018-09-02 07:08] LABS: Calcium 7.3 mg/dL (8.5-10.1)
--- NOTE | 2018-09-02 08:42 | Discharge Summary ---
General - General Admission date:: 09/01/18 Discharge date: 09/02/18 HPI HPI: 43 YOF had apparent syncopal episode -woke up at 4 AM and got up to go to bed, hearing sounded muffled, "like before you are going to pass out". She had a syncopal episode and woke up on the floor. The same thing happened a couple of more times, always while standing. She has a bruise on her left arm, her ankles hurt, small bruise on the back of her head. Denies any other injuries. No neck pain. States hands feel tingly. States she has not recently been ill, no vomiting, diarrhea, fever, chest pain, cough, shortness of breath. States that she has a history of hypertension and has had no recent medication changes. Had syncope 06/01/2018 and was seen in this emergency department. (Per Dr. Horton) Hospital Course Hospital Course: 09/01 US Kidney IMPRESSION: 1. No hydronephrosis. 2. Mild bilateral renal cortical thinning. 3. Possible left nephrolithiasis Dictated By: Taras Rosa MD 09/01 L Ankle X-Ray IMPRESSION: Negative ankle, no acute finding Dictated By: Taras Rosa MD 09/01 CXR IMPRESSION: No change with no acute finding Dictated By: Taras Rosa MD 09/02 Cards: Plan: 1. The patient was admitted to the hospital after multiple syncopal episodes. Upon arrival to the emergency department she was found to be hypotensive and in acute renal failure. The patient has had IV hydration and all of her blood pressure medications have been stopped. Her blood pressure this morning is back to normal range and her renal function has normalized. 2. The patient does remain hypokalemic today. She has had her potassium repleted per Dr. Horton. Will defer. 3. Dr. Tavera recommends stopping her hydrochlorothiazide and decreasing her losartan to 50 mg once daily. 4. Continue her current dose of carvedilol and diltiazem ER. 5. Her blood pressure is well controlled this morning. 6. Her LDL goal is less than 100. 7. Weight loss is encouraged. 8. The patient is stable for discharge home today from a cardiovascular standpoint with the above changes made to her blood pressure medications. She needs to have a BMP in 1 week and follow-up in 2 weeks in our outpatient cardiology clinic. Objective Vital signs: Temp Pulse Resp BP Pulse Ox 98.0 F 72 16 130/75 96 09/02/18 08:00 09/02/18 08:00 09/02/18 08:00 09/02/18 08:00 09/02/18 08:00 no acute distress - *Routine HEENT Exam Head: Present: normocephalic Eye: Present: EOMI, PERRL ENT: Present: mucous membranes moist - *Routine Neck Exam Present: supple, full ROM - *Routine Respiratory Exam Present: accessory muscle use, CTA bilaterally - *Routine Cardiovascular Exam Present: RRR, Normal S1, Normal S2 - *Routine Abdominal Exam Present: soft, normoactive bowel sounds. Absent: tenderness - *Routine Extremities Exam Present: full ROM, pulses intact - Routine Back/Spine/Pelvis Exam Back/Spine: Present: full ROM. Absent: CVA tenderness - *Routine Skin Exam Present: intact. Absent: cyanosis - *Routine Neurological Exam Present: alert, oriented X3, CN II-XII intact - Routine Psychiatric Exam Present: normal affect, normal thought process. Absent: suicidal ideation - Detailed Eye Exam Eyelids: Left normal inspection Results Labs on day of discharge: Labs from last 24 hours 09/02/18 09/02/18 09/01/18 06:40 06:40 22:12 WBC 6.4 D RBC 2.97 L Hgb 9.4 L D Hct 27.6 L MCV 92.8 MCH 31.6 H MCHC 34.1 RDW 13.4 Plt Count 208 D MPV 6.6 L Neut % (Auto) 57.5 Lymph % (Auto) 35.0 [place] % (Auto) 5.2 Eos % (Auto) 2.1 Baso % (Auto) 0.3 Neut # (Auto) 3.7 Lymph # (Auto) 2.2 [place] # (Auto) 0.3 Eos # (Auto) 0.1 Baso # (Auto) 0.0 ESR 52 H Sodium 143 Potassium 3.0 L Chloride 110 H Carbon Dioxide 24 Anion Gap 12.0 BUN 19 H D Creatinine 1.02 D Estimated Creat Clear 68 Estimated GFR 60 Est GFR ( Amer) 72 D Glucose 117 H Lactate Calcium 7.3 L Total Bilirubin AST ALT Alkaline Phosphatase Total Creatine Kinase Troponin I Total Protein Albumin Globulin Albumin/Globulin Ratio Urine Color Urine Appearance Urine pH Ur Specific [place] Urine Protein Urine Glucose (UA) Urine Ketones Urine Blood Urine Nitrate Urine Bilirubin Urine Urobilinogen Ur Leukocyte Esterase Urine WBC Ur Squamous Epith Cells Urine Bacteria Urine Opiates Screen Urine Methadone Screen Ur Barbituates Screen Ur Phencyclidine Scrn Ur Amphetamines Screen U Benzodiazepines Scrn Urine Cocaine Screen U Marijuana (THC) Screen 09/01/18 09/01/18 09/01/18 22:12 13:42 13:42 WBC RBC Hgb Hct MCV MCH MCHC RDW Plt Count MPV Neut % (Auto) Lymph % (Auto) [place] % (Auto) Eos % (Auto) Baso % (Auto) Neut # (Auto) Lymph # (Auto) [place] # (Auto) Eos # (Auto) Baso # (Auto) ESR Sodium 142 Potassium 2.8 L* Chloride 107 Carbon Dioxide 24 Anion Gap 13.8 BUN 26 H Creatinine 1.39 H D Estimated Creat Clear 50 Estimated GFR 42 L Est GFR ( Amer) 51 L D Glucose 119 H Lactate Calcium 7.2 L D Total Bilirubin AST ALT Alkaline Phosphatase Total Creatine Kinase Troponin I Total Protein Albumin Globulin Albumin/Globulin Ratio Urine Color Yellow Urine Appearance Clear Urine pH 5.5 Ur Specific [place] 1.020 Urine Protein Trace Urine Glucose (UA) Negative Urine Ketones Negative Urine Blood Negative Urine Nitrate Negative Urine Bilirubin Negative Urine Urobilinogen 0.2 Ur Leukocyte Esterase Trace Urine WBC 10-20 Ur Squamous Epith Cells 5-10 Urine Bacteria Trace Urine Opiates Screen Positive H Urine Methadone Screen Negative Ur Barbituates Screen Negative Ur Phencyclidine Scrn Negative Ur Amphetamines Screen Negative U Benzodiazepines Scrn Negative Urine Cocaine Screen Negative U Marijuana (THC) Screen Negative 09/01/18 09/01/18 09/01/18 11:00 10:30 10:30 WBC RBC Hgb Hct MCV MCH MCHC RDW Plt Count MPV Neut % (Auto) Lymph % (Auto) [place] % (Auto) Eos % (Auto) Baso % (Auto) Neut # (Auto) Lymph # (Auto) [place] # (Auto) Eos # (Auto) Baso # (Auto) ESR Sodium 138 Potassium 2.8 L* Chloride 99 Carbon Dioxide 27 Anion Gap 14.8 BUN 31 H Creatinine 2.56 H Estimated Creat Clear 27 Estimated GFR 21 L Est GFR ( Amer) 25 L Glucose 110 H Lactate 1.4 Calcium 8.5 Total Bilirubin 1.1 H AST 23 ALT 65 Alkaline Phosphatase 70 Total Creatine Kinase 122 Troponin I < 0.02 Total Protein 6.9 Albumin 3.5 Globulin 3.4 H Albumin/Globulin Ratio 1.0 L Urine Color Urine Appearance Urine pH Ur Specific [place] Urine Protein Urine Glucose (UA) Urine Ketones Urine Blood Urine Nitrate Urine Bilirubin Urine Urobilinogen Ur Leukocyte Esterase Urine WBC Ur Squamous Epith Cells Urine Bacteria Urine Opiates Screen Urine Methadone Screen Ur Barbituates Screen Ur Phencyclidine Scrn Ur Amphetamines Screen U Benzodiazepines Scrn Urine Cocaine Screen U Marijuana (THC) Screen 09/01/18 10:30 WBC 10.9 H RBC 3.39 L Hgb 10.5 L Hct 31.2 L MCV 92.0 MCH 30.8 MCHC 33.5 RDW 13.6 Plt Count 279 MPV 6.4 L Neut % (Auto) 79.8 Lymph % (Auto) 14.1 [place] % (Auto) 3.9 Eos % (Auto) 2.0 Baso % (Auto) 0.2 Neut # (Auto) 8.7 H Lymph # (Auto) 1.5 [place] # (Auto) 0.4 Eos # (Auto) 0.2 Baso # (Auto) 0.0 ESR Sodium Potassium Chloride Carbon Dioxide Anion Gap BUN Creatinine Estimated Creat Clear Estimated GFR Est GFR ( Amer) Glucose Lactate Calcium Total Bilirubin AST ALT Alkaline Phosphatase Total Creatine Kinase Troponin I Total Protein Albumin Globulin Albumin/Globulin Ratio Urine Color Urine Appearance Urine pH Ur Specific [place] Urine Protein Urine Glucose (UA) Urine Ketones Urine Blood Urine Nitrate Urine Bilirubin Urine Urobilinogen Ur Leukocyte Esterase Urine WBC Ur Squamous Epith Cells Urine Bacteria Urine Opiates Screen Urine Methadone Screen Ur Barbituates Screen Ur Phencyclidine Scrn Ur Amphetamines Screen U Benzodiazepines Scrn Urine Cocaine Screen U Marijuana (THC) Screen Preliminary micro results at discharge 09/01/18 13:42 Urine Culture - Preliminary Urine,Random Gram Negative Rods - Additional Comments Rounded w/ Dr. Horton, orders per Dr. Horton DS: Diagnosis - Discharge Diagnosis (1) Hypotensive episode Status: Acute (2) Acute renal failure Status: Acute (3) Obesity Status: Acute (4) Anemia Status: Acute (5) Elevated erythrocyte sedimentation rate Status: Acute (6) Hyponatremia Status: Acute (7) UTI (urinary tract infection) Status: Acute (8) CKD (chronic kidney disease) stage 2, GFR 60-89 ml/min Status: Acute Discharge Plan - Patient Discharge Instructions ACTIVITY: Continue current activity, Ambulate as tolerated DIET: continue same diet Patient Instructions: DI for Syncope in Adults (Fainting), Acute Renal Failure, DI for Urinary Tract Infection (UTI), DI for Syncope in Children (Fainting), DI for Hypotension - Follow up Plan Follow up with: Edward Tavera MD [Staff Physician] - 2 weeks Mahesh Horton MD [Primary Care Provider] - 09/07/18 Disposition: Home, Self-Fpc Medications: Home Medications Medication Instructions Recorded Confirmed Type Aspirin [Aspir 81] 81 mg PO DAILY PRN 07/25/17 09/01/18 History Losartan Potassium [Cozaar] 100 mg PO DAILY 02/28/18 09/01/18 History hydroCHLOROthiazide 50 mg PO DAILY 02/28/18 09/01/18 History [Hydrochlorothiazide 50mg Tab] acetaminophen ER 650 mg 650 mg PO Q8H PRN #90 tab 03/23/18 09/01/18 Rx tablet,extended release tizanidine 4 mg capsule 4 mg PO Q8H PRN #21 cap 08/13/18 09/01/18 Rx acetaminophen 300 mg-codeine 30 mg 1 tab PO Q6H PRN #28 tab 08/26/18 09/01/18 Rx tablet Escitalopram Oxalate 20 mg PO DAILY 09/01/18 09/01/18 History Ibuprofen [Ibuprofen 800mg 800 mg PO TID PRN 09/01/18 09/01/18 History Tablet] Quetiapine Fumarate [Seroquel] 100 mg PO QHS 09/01/18 09/01/18 History dilTIAZem HCl [Diltiazem 180mg 180 mg PO DAILY 09/01/18 09/01/18 History 24Hr ER Cap] Carvedilol [Carvedilol 12.5mg Tab] 12.5 mg PO BID 09/02/18 09/01/18 History Losartan Potassium 50 mg PO DAILY 30 Days #30 tab 09/02/18 Rx Prescriptions/Medication Reconciliation: New Losartan Potassium 50 mg PO DAILY 30 Days #30 tab Continued acetaminophen ER 650 mg tablet,extended release 650 mg PO Q8H PRN #90 tab PRN Reason: pain tizanidine 4 mg capsule 4 mg PO Q8H PRN #21 cap PRN Reason: muscle spasticity Aspirin [Aspir 81] 81 mg PO DAILY PRN PRN Reason: Chest Pain dilTIAZem HCl [Diltiazem 180mg 24Hr ER Cap] 180 mg PO DAILY Quetiapine Fumarate [Seroquel] 100 mg PO QHS Escitalopram Oxalate 20 mg PO DAILY Carvedilol [Carvedilol 12.5mg Tab] 12.5 mg PO BID Discontinued acetaminophen 300 mg-codeine 30 mg tablet 1 tab PO Q6H PRN #28 tab PRN Reason: pain Ibuprofen [Ibuprofen 800mg Tablet] 800 mg PO TID PRN PRN Reason: pain Losartan Potassium [Cozaar] 100 mg PO DAILY hydroCHLOROthiazide [Hydrochlorothiazide 50mg Tab] 50 mg PO DAILY
--- NOTE | 2018-09-02 09:40 | Consult Report ---
History of Present Illness Consult date: 09/02/18 Requesting physician: Mahesh Horton Chief complaint: Syncope Additional Medical History:: 1. Hypertension 2. Morbid obesity History of present illness: This is a 43-year-old white female who was admitted to the hospital after several episodes of syncope. The patient states that she woke up around 4 AM yesterday morning to get out of bed and everything sounded muffled and then she had sudden syncope and woke up on the floor. The patient states that this happened a few more times throughout the day yesterday while she was standing. She states that one time while walking from her room through the foyer she did have syncope and hit her head on her granddaughters kitchen set. She denies any other injuries while having the syncopal episodes. She does report feelings of weakness and numbness and tingling associated with the syncope. She denies any chest pain or pressure. She denies any shortness of breath or edema. She denies any fevers, chills, nausea, vomiting, diarrhea, PND or orthopnea. The patient does have a history of hypertension and had blood pressure medication changes in June. The patient failed to follow-up in the cardiology outpatient clinic in July as scheduled. Upon arrival to the emergency department the patient was hypotensive and in acute renal failure. This morning her creatinine has normalized and her blood pressure is back to a normal range. [facility] History I have reviewed the patient's past medical history: Yes Medical History: Reports:: Anxiety, Depression, Hyperlipidemia, Hypertension, Kidney Stones Denies:: Cancer, Diabetes Mellitus Type 1, Diabetes Mellitus Type 2, Gastrointestinal Bleed, Internal Pacemaker, MRSA, Seizures *Have you ever received a pneumonia vaccine?: No *Have you received a flu vaccine this season?: No Other Medical History: Denies: Blood Transfusion Reaction Laterality Cases: Bilateral: Tonsillectomy Other Surgeries: Yes: Appendectomy, Cholecystectomy, Hysterectomy-Total, Other (lithotripsy x6). No: Pacemaker Amputation: No Fractures: No - *Social History Educational Level: Completed High School Smoking Status: Never smoker # Packs/Day (cigarettes): 1 Alcohol Intake: never Alcohol Intake Frequency:: other Substance Use Type: painkillers, former substance user *Occupational Status:: employed Housing: house Household Members: family *Travel in the last 8 weeks: None - Psychiatric History Expresses thoughts of harming self/others: None Suicide Plan Description: No Plan Pschychiatric History:: Reports:: Anxiety, Depression Family Hx:: Stroke Meds Home Medications Medication Instructions Recorded Confirmed Type Aspirin [Aspir 81] 81 mg PO DAILY PRN 07/25/17 09/01/18 History Losartan Potassium [Cozaar] 100 mg PO DAILY 02/28/18 09/01/18 History hydroCHLOROthiazide 50 mg PO DAILY 02/28/18 09/01/18 History [Hydrochlorothiazide 50mg Tab] acetaminophen ER 650 mg 650 mg PO Q8H PRN #90 tab 03/23/18 09/01/18 Rx tablet,extended release tizanidine 4 mg capsule 4 mg PO Q8H PRN #21 cap 08/13/18 09/01/18 Rx acetaminophen 300 mg-codeine 30 mg 1 tab PO Q6H PRN #28 tab 08/26/18 09/01/18 Rx tablet Escitalopram Oxalate 20 mg PO DAILY 09/01/18 09/01/18 History Ibuprofen [Ibuprofen 800mg 800 mg PO TID PRN 09/01/18 09/01/18 History Tablet] Quetiapine Fumarate [Seroquel] 100 mg PO QHS 09/01/18 09/01/18 History dilTIAZem HCl [Diltiazem 180mg 180 mg PO DAILY 09/01/18 09/01/18 History 24Hr ER Cap] Carvedilol [Carvedilol 12.5mg Tab] 12.5 mg PO BID 09/02/18 09/01/18 History Allergies Allergy/AdvReac Type Severity Reaction Status Date / Time amlodipine Allergy Intermediate swelling Verified 08/30/18 15:27 legs and feet Penicillins [PENICILLINS] Allergy Intermediate I-RASH Verified 08/30/18 15:27 metoclopramide [From REGLAN] Allergy Mild NA-HALLUCIN Verified 08/30/18 15:27 ATIONS amoxicillin Allergy Verified 08/30/18 15:27 Review of Systems - Review of Systems Review of systems:: pertinent systems reviewed and negative unless documented below - *Neurologic Reports numbness, Reports tingling/numbness/burning sensations, Reports tingling (Hands), Reports weakness, Denies headache(s), Denies seizure-like activity Comments: Syncope multiple times Exam Vital signs and Labs for Last 24 Hours: Temp Pulse Resp BP Pulse Ox 98.0 F 72 16 130/75 96 09/02/18 08:00 09/02/18 08:00 09/02/18 08:00 09/02/18 08:00 09/02/18 08:00 Laboratory Results - last 24 hr 09/01/18 10:30: WBC 10.9 H, RBC 3.39 L, Hgb 10.5 L, Hct 31.2 L, MCV 92.0, MCH 30.8, MCHC 33.5, RDW 13.6, Plt Count 279, MPV 6.4 L, Neut % (Auto) 79.8, Lymph % (Auto) 14.1, [place] % (Auto) 3.9, Eos % (Auto) 2.0, Baso % (Auto) 0.2, Neut # (Auto) 8.7 H, Lymph # (Auto) 1.5, [place] # (Auto) 0.4, Eos # (Auto) 0.2, Baso # (Auto) 0.0 09/01/18 10:30: Sodium 138, Potassium 2.8 L*, Chloride 99, Carbon Dioxide 27, Anion Gap 14.8, BUN 31 H, Creatinine 2.56 H, Estimated Creat Clear 27, Estimated GFR 21 L, Est GFR ( Amer) 25 L, Glucose 110 H, Calcium 8.5, Total Bilirubin 1.1 H, AST 23, ALT 65, Alkaline Phosphatase 70, Troponin I < 0.02, Total Protein 6.9, Albumin 3.5, Globulin 3.4 H, Albumin/Globulin Ratio 1.0 L 09/01/18 10:30: Total Creatine Kinase 122 09/01/18 11:00: Lactate 1.4 09/01/18 13:42: Urine Color Yellow, Urine Appearance Clear, Urine pH 5.5, Ur Specific [place] 1.020, Urine Protein Trace, Urine Glucose (UA) Negative, Urine Ketones Negative, Urine Blood Negative, Urine Nitrate Negative, Urine Bilirubin Negative, Urine Urobilinogen 0.2, Ur Leukocyte Esterase Trace, Urine WBC 10-20, Ur Squamous Epith Cells 5-10, Urine Bacteria Trace 09/01/18 13:42: Urine Opiates Screen Positive H, Urine Methadone Screen Negative, Ur Barbituates Screen Negative, Ur Phencyclidine Scrn Negative, Ur Amphetamines Screen Negative, U Benzodiazepines Scrn Negative, Urine Cocaine Screen Negative, U Marijuana (THC) Screen Negative 09/01/18 22:12: Sodium 142, Potassium 2.8 L*, Chloride 107, Carbon Dioxide 24, Anion Gap 13.8, BUN 26 H, Creatinine 1.39 H D, Estimated Creat Clear 50, Estimated GFR 42 L, Est GFR ( Amer) 51 L D, Glucose 119 H, Calcium 7.2 L D 09/01/18 22:12: ESR 52 H 09/02/18 06:40: Sodium 143, Potassium 3.0 L, Chloride 110 H, Carbon Dioxide 24, Anion Gap 12.0, BUN 19 H D, Creatinine 1.02 D, Estimated Creat Clear 68, Estimated GFR 60, Est GFR ( Amer) 72 D, Glucose 117 H, Calcium 7.3 L 09/02/18 06:40: WBC 6.4 D, RBC 2.97 L, Hgb 9.4 L D, Hct 27.6 L, MCV 92.8, MCH 31.6 H, MCHC 34.1, RDW 13.4, Plt Count 208 D, MPV 6.6 L, Neut % (Auto) 57.5, Lymph % (Auto) 35.0, [place] % (Auto) 5.2, Eos % (Auto) 2.1, Baso % (Auto) 0.3, Neut # (Auto) 3.7, Lymph # (Auto) 2.2, [place] # (Auto) 0.3, Eos # (Auto) 0.1, Baso # (Auto) 0.0 I & O for Last 24 hours: Intake & Output 08/30/18 08/31/18 09/01/18 09/02/18 23:59 23:59 23:59 23:59 Intake Total 3607 / 3607 1470 / 1470 Output Total 400 / 400 Balance 3207 / 3207 1470 / 1470 Weight 267 lb 2 oz 270 lb 1 oz Microbiology Reports for the Last 24 Hours: Microbiology 09/01/18 13:42 Urine,Random Urine Culture - Preliminary Gram Negative Rods - *Routine HEENT Exam Head: Present: normocephalic, atraumatic Eye: Present: EOMI, PERRL ENT: Present: mucous membranes moist - *Routine Neck Exam Present: supple, full ROM, normal carotid upstroke. Absent: JVD, carotid bruit, lymphadenopathy - *Routine Respiratory Exam Present: CTA bilaterally - *Routine Cardiovascular Exam Present: RRR, Normal S1, Normal S2. Absent: murmur, gallop - *Routine Abdominal Exam Present: soft, normoactive bowel sounds. Absent: tenderness, distended - *Routine Extremities Exam Present: full ROM, pulses intact, normal capillary refill. Absent: cyanosis, clubbing, edema - *Routine Skin Exam Present: intact, warm. Absent: erythema, rash - *Routine Neurological Exam Present: alert, oriented X3, CN II-XII intact. Absent: sensory deficit, motor deficit - Routine Psychiatric Exam Present: normal affect, normal thought process - Detailed Eye Exam Eyelids: Left normal inspection Assessment and Plan (1) Syncope Current visit: Yes Status: Acute Category: Medical Code(s): R55 - Syncope and collapse (2) Hypotensive episode Current visit: Yes Status: Acute Category: Medical Code(s): I95.9 - Hypotension, unspecified (3) Acute renal failure Current visit: Yes Status: Acute Qualifiers: Acute renal failure type: unspecified Qualified Code(s): N17.9 - Acute kidney failure, unspecified Category: Medical Code(s): N17.9 - Acute kidney failure, unspecified (4) Obesity Current visit: Yes Status: Acute Qualifiers: Obesity type: due to excess calories Obesity classification: adult class 3 (BMI >= 40) Serious obesity comorbidity presence: with serious comorbidity Body mass index: BMI 40.0-44.9 Qualified Code(s): E66.01 - Morbid (severe) obesity due to excess calories; Z68.41 - Body mass index (BMI) 40.0-44.9, adult Category: Medical Code(s): E66.9 - Obesity, unspecified (5) Anemia Current visit: Yes Status: Acute Qualifiers: Anemia type: unspecified type Qualified Code(s): D64.9 - Anemia, unspecified Category: Medical Code(s): D64.9 - Anemia, unspecified (6) Elevated erythrocyte sedimentation rate Current visit: Yes Status: Acute Category: Medical Code(s): R70.0 - Elevated erythrocyte sedimentation rate (7) Hyponatremia Current visit: Yes Status: Acute Category: Medical Code(s): E87.1 - Hypo- osmolality and hyponatremia (8) UTI (urinary tract infection) Current visit: Yes Status: Acute Qualifiers: Urinary tract infection type: acute cystitis Hematuria presence: without hematuria Qualified Code(s): N30.00 - Acute cystitis without hematuria Category: Medical Code(s): N39.0 - Urinary tract infection, site not specified (9) CKD (chronic kidney disease) stage 2, GFR 60-89 ml/min Current visit: Yes Status: Acute Category: Medical Code(s): N18.2 - Chronic kidney disease, stage 2 (mild) (10) Hypokalemia Current visit: Yes Status: Acute Category: Medical Code(s): E87.6 - Hypokalemia - Assessment and plan all Dx Assessment and Plan for all problems:: Plan: 1. The patient was admitted to the hospital after multiple syncopal episodes. Upon arrival to the emergency department she was found to be hypotensive and in acute renal failure. The patient has had IV hydration and all of her blood pressure medications have been stopped. Her blood pressure this morning is back to normal range and her renal function has normalized. 2. The patient does remain hypokalemic today. She has had her potassium repleted per Dr. Horton. Will defer. 3. Dr. Tavera recommends stopping her hydrochlorothiazide and decreasing her losartan to 50 mg once daily. 4. Continue her current dose of carvedilol and diltiazem ER. 5. Her blood pressure is well controlled this morning. 6. Her LDL goal is less than 100. 7. Weight loss is encouraged. 8. The patient is stable for discharge home today from a cardiovascular standpoint with the above changes made to her blood pressure medications. She needs to have a BMP in 1 week and follow-up in 2 weeks in our outpatient cardiology clinic. Thank you for the opportunity to help participate in the care of this patient.
[2018-09-02 12:31] VITALS: BP 128/72
[2018-09-03 08:09] LABS: Adrenocorticotropic Hormone 5.2 pg/mL (7.2-63.3)
[2018-09-04 20:34] LABS: Renin 7.799 ng/mL/hr (0.167-5.380)
== END 2018-09-02 13:35 | disposition home or self-care (01) ==
LOC: ER 10:15 → 2ND 13:47 → INTOOBSV 14:27 → 2ND 14:28
PROVIDERS: ADMIT Emergency Medicine; ATTEND Emergency Medicine
DX: N39.0 Urinary tract infection, site not specified; R55 Syncope and collapse; F32.9 Major depressive disorder, single episode, unspecified; F41.9 Anxiety disorder, unspecified; N18.2 Chronic kidney disease, stage 2 (mild); Z79.82 Long term (current) use of aspirin; Z88.0 Allergy status to penicillin; Z88.8 Allergy status to other drugs, medicaments and biological substances; R70.0 Elevated erythrocyte sedimentation rate; S40.022A Contusion of left upper arm, initial encounter; I95.9 Hypotension, unspecified; D64.9 Anemia, unspecified; Z87.442 Personal history of urinary calculi; R20.0 Anesthesia of skin; E87.1 Hypo-osmolality and hyponatremia; M25.579 Pain in unspecified ankle and joints of unspecified foot; Z88.1 Allergy status to other antibiotic agents; Z79.899 Other long term (current) drug therapy; N17.9 Acute kidney failure, unspecified; I10 Essential (primary) hypertension; S00.83XA Contusion of other part of head, initial encounter; E66.9 Obesity, unspecified
CPT/HCPCS: 36415; 71010; 71045; 73610; 76770; 80048; 80053; 80305; 81001; 82024; 82533; 82550; 83605; 84244; 84484; 85025; 85651; 87040; 87086; 87088; 87186; 93005; 99285; G0378; J2405

== ENCOUNTER → 2018-09-07 17:38 | Outpatient (CLI) | payer MEDICAID, SELFPAY ==
[2018-09-09 11:30] LABS: Creatinine, Urine 167.1 mg/dL (Not Estab.); Microalbumin, Urine 4.7 ug/mL (Not Estab.)
== END ==
PROVIDERS: Visit Provider Nurse Practitioner Family
DX: I95.9 Hypotension, unspecified (principal)
CPT/HCPCS: 82043; 82570

== ENCOUNTER → 2018-09-08 14:51 | Outpatient (CLI) | payer MEDICAID, SELFPAY ==
--- NOTE | 2018-09-08 14:52 | MR_ITS ---
MR lumbar spine wo con, MR 3-d myelogram/MRCP HISTORY: LBP falling frequently. No Lumbar surgery. ITS.REASON: abnormal ct lps [facility] ORDERING PHYSICIAN: Blaine Hernandez APRN PATIENT AGE: 43 years Comparison: CT 08-11-18. TECHNIQUE: Standard multiplanar multiecho sequences are performed without contrast. 3-D MIP and myelographic images are also rendered and reviewed FINDINGS: There is normal alignment. The spinal cord ends at the L1 level. T12-L1: Mild degenerative disc disease with a small right paracentral and foraminal disc protrusion. This is causing some mild compression upon the anterior right aspect of the distal aspect of the cord with right lateral recess and foraminal narrowing. L1-L2: Unremarkable. There is a 2.3 cm area of isointense T1 and slightly hyperintense T2 signal within the L2 vertebral body with punctate areas of decreased signal consistent with a hemangioma. L2-L3: Unremarkable. L3-L4: Unremarkable. L4-5: Bulging disc with a small broad-based central left paracentral disc protrusion abutting the anteromedial aspect of the left L4 nerve root. There is associated facet and ligamentum hypertrophy with narrowing of the canal at this level. There is mild bilateral foraminal narrowing. L5-S1: Concentric bulging disc with a small central and left paracentral disc protrusion impinging upon the left S1 nerve root and causing moderate left lateral recess narrowing. There is facet and ligamentum flavum hypertrophy with moderate bilateral foraminal narrowing left greater than right. There is narrowing of the canal at this level at 8 mm. IMPRESSION: 1. T12-L1: Mild degenerative disc disease with a small right paracentral and foraminal disc protrusion. This is causing some mild compression upon the anterior right aspect of the distal aspect of the cord with right lateral recess and foraminal narrowing 2. L4-5: Bulging disc with a small broad-based central left paracentral disc protrusion abutting the anteromedial aspect of the left L4 nerve root. There is associated facet and ligamentum hypertrophy with narrowing of the canal at this level. There is mild bilateral foraminal narrowing. 3. L5-S1: Concentric bulging disc with a small central and left paracentral disc protrusion impinging upon the left S1 nerve root and causing moderate left lateral recess narrowing. There is facet and ligamentum flavum hypertrophy with moderate bilateral foraminal narrowing left greater than right. There is narrowing of the canal at this level at 8 mm.
[2018-09-08 18:10] LABS: Anion Gap 13.9 mEq/L (5-15); Blood Urea Nitrogen 14 mg/dL (7-18); Calcium 8.8 mg/dL (8.5-10.1); Carbon Dioxide 25 mmol/L (21.0-32.0); Chloride 106 mmol/L (98-107); Creatinine,Serum 0.85 mg/dL (0.55-1.02); Estimated Glomerular Filt Rate 74 ml/min (>60); GFR (African American) 89 ML/MIN (>60); Glucose 81 mg/dL (74-106); Potassium 3.9 mmoL/L (3.5-5.1); Sodium 141 mmol/L (136-145)
== END ==
PROVIDERS: Nurse Practitioner Family; PCP Nurse Practitioner Family; Visit Provider Nurse Practitioner Family
DX: M54.5 Low back pain (principal); R93.7 Abnormal findings on diagnostic imaging of other parts of musculoskeletal system; I95.9 Hypotension, unspecified
CPT/HCPCS: 36415; 72148; 76376; 80048

== ENCOUNTER → 2018-09-08 15:44 | Outpatient (CLI) | payer MEDICAID, SELFPAY | PROVIDERS: Visit Provider Nurse Practitioner Family | DX: I95.9 Hypotension, unspecified (principal) | CPT/HCPCS: 36415; 80048 ==

== ENCOUNTER → 2018-09-14 12:34 | Outpatient (CLI) | payer MEDICAID, SELFPAY ==
[2018-09-14 12:44] LABS: Basophils % 0.3 % (0.1-2.0); Eosinophils # 0.3 K/mm3 (0.0-0.4); Eosinophils % 3.8 % (0.1-12.0); Hematocrit 35.9 % (37.0-47.0); Hemoglobin 11.6 g/dL (12.2-16.2); Lymphocytes # 2.8 K/mm3 (0.7-4.5); Lymphocytes % 39.7 % (10-50); Mean Corpuscular HGB Conc 32.4 g/dL (31.8-35.4); Mean Corpuscular Hemoglobin 30.8 pg (27.0-31.2); Mean Corpuscular Volume 94.9 fl (81-99); Mean Platelet Volume 6.6 fl (7.4-10.4); Monocytes # 0.4 K/mm3 (0.1-1.0); Monocytes % 5.8 % (1.7-9.3); Neutrophils # 3.6 K/mm3 (1.8-7.8); Neutrophils % 50.4 % (37.0-80.0); Platelet Count 336 K/mm3 (142-424); Red Blood Count 3.78 M/mm3 (4.20-5.40); Red Cell Distribution Width 14.7 % (11.5-17.5); White Blood Count 7.2 K/mm3 (4.8-10.8)
[2018-09-14 14:57] LABS: Anion Gap 13.2 mEq/L (5-15); Blood Urea Nitrogen 12 mg/dL (7-18); Calcium 9.3 mg/dL (8.5-10.1); Carbon Dioxide 27 mmol/L (21.0-32.0); Chloride 107 mmol/L (98-107); Estimated Glomerular Filt Rate 79 ml/min (>60); GFR (African American) 96 ML/MIN (>60); Glucose 100 mg/dL (74-106); Potassium 4.2 mmoL/L (3.5-5.1); Sodium 143 mmol/L (136-145)
== END ==
PROVIDERS: Visit Provider Urology
DX: I10 Essential (primary) hypertension (principal)
CPT/HCPCS: 36415; 80048; 85025

== ENCOUNTER 2018-09-27 16:36 | Emergency (ER) | payer MEDICAID, SELFPAY ==
[2018-09-27 16:48] VITALS: BP 164/103; PULSE 91; RESP 18; TEMP 37.1; O2SAT 97; BMI 43.0
[2018-09-27 16:52] VITALS: BP 164/103; PULSE 90; RESP 18; TEMP 37.1; O2SAT 97; BMI 39.4
--- NOTE | 2018-09-27 17:02 | HMH.EDUTC ---
[facility] [place] Clinical Impression: Low back pain Qualifiers: Chronicity: chronic Back pain laterality: midline Sciatica presence: without sciatica Qualified Code(s): M54.5 - Low back pain; G89.29 - Other chronic pain Disposition: Home, Self-Care Condition on Discharge: Good Instructions: DI for Chronic Pain -- Adult, DI for Low Back Pain, Low Back Pain, Lidocaine Transdermal Patch Additional Instructions: . Tylenol every 4 hours as needed/directed by your family doctor for pain * moist heat every 20 minutes 3-4 times a day to affected area may help with stiffness and pain *Keep this area as active as you can no movement leads to more stiffness, However take it easy and avoid heavy lifting pushing or pulling *Follow up with you family doctor if no improvement for further treatment Use patches as prescribed for low back pain Return if needed Your blood pressure was elevated during your visit today, make sure to follow up with family doctor for further evaluation of your blood pressure being elevated Prescriptions: Lidocaine [Lidoderm 5% transdermal patch] 1 each TP Q24H #5 adh..patch Referrals: Mahesh Horton MD [Primary Care Provider] - As needed Time of Disposition: 17:29 Medical Decision Making - Mark Inquiry Pt receiving controlled substance: No Mark was queried for this patient: No Vital Signs: 09/27/18 16:48 09/27/18 16:52 Temperature 98.8 F 98.8 F Temperature Source Oral Oral Pulse Rate [Left Radial] 91 H 90 Respiratory Rate 18 18 Blood Pressure [Right Arm] 164/103 H 164/103 H Blood Pressure Mean [Right Arm] 123 123 Blood Pressure Source [Right Arm] Automatic Cuff Blood Pressure Position [Right Arm] Sitting 02 Sat by Pulse Oximetry 97 97 Oxygen Delivery Method Room Air Room Air [facility] [place] H[place] - General Stated complaint: lower back pain, nausea Time Seen by Provider: 09/27/18 17:02 Mode of Arrival: Ambulatory Source of Information: Patient Limitations: No Limitations Description of Symptoms (Recalled from Triage Doc. by RN): PT C/O LOWER BACK PAIN AND NAUSEA HEENT Symptoms (Recalled from RN notes): No Resp Symptoms (Recalled from RN notes): No Skin Symptoms (Recalled from RN notes): No MS Symptoms (Recalled from RN notes): Yes Functional Status (Recalled from RN notes): N/A - History of Present Illness Provider Complaint: Patient states that she has been having pain in her lower back area for awhile now and had MRI and was diagnosed with Buldging disks States that she was also recently hospitalized with renal failure and was told that she couldn't take Motrin and wanted to see if there was anything else she could get to take for pain and nausea States that she has been taking Tylenol but it hasn't helped much Denies new injury states that pain is like she has been having Denies bowel or bladder issues - Related Data Home Medications Medication Instructions Recorded Confirmed Escitalopram Oxalate 20 mg PO DAILY 09/01/18 09/23/18 dilTIAZem HCl [Diltiazem 180mg 180 mg PO DAILY 09/01/18 09/23/18 24Hr ER Cap] Carvedilol [Carvedilol 12.5mg Tab] 12.5 mg PO BID 09/02/18 09/23/18 quetiapine 100 mg tablet 50 mg PO QHS tab 09/14/18 09/23/18 Previous Rx's Medication Instructions Recorded acetaminophen ER 650 mg 650 mg PO Q8H PRN #90 tab 03/23/18 tablet,extended release tizanidine 4 mg capsule 4 mg PO Q8H PRN #21 cap 08/13/18 losartan 100 mg tablet 100 mg PO DAILY #90 tab 09/14/18 Lidocaine [Lidoderm 5% transdermal 1 each TP Q24H #5 adh..patch 09/27/18 patch] Allergies Allergy/AdvReac Type Severity Reaction Status Date / Time amlodipine Allergy Intermediate swelling Verified 09/23/18 14:16 legs and feet Penicillins [PENICILLINS] Allergy Intermediate I-RASH Verified 09/23/18 14:16 metoclopramide [From REGLAN] Allergy Mild NA-HALLUCIN Verified 09/23/18 14:16 ATIONS amoxicillin Allergy Verified 09/23/18 14:16 - Worker's Comp Is this a Worker's Comp case?: No
--- NOTE | 2018-09-27 17:05 | ED_ITS ---
[facility] [place] Disposition Clinical Impression: Low back pain Qualifiers: Chronicity: chronic Back pain laterality: midline Sciatica presence: without sciatica Qualified Code(s): M54.5 - Low back pain; G89.29 - Other chronic pain Disposition: Home, Self-Care Condition on Discharge: Good Instructions: DI for Chronic Pain -- Adult, DI for Low Back Pain, Low Back Pain, Lidocaine Transdermal Patch Additional Instructions: . Tylenol every 4 hours as needed/directed by your family doctor for pain * moist heat every 20 minutes 3-4 times a day to affected area may help with stiffness and pain *Keep this area as active as you can no movement leads to more stiffness, However take it easy and avoid heavy lifting pushing or pulling *Follow up with you family doctor if no improvement for further treatment Use patches as prescribed for low back pain Return if needed Your blood pressure was elevated during your visit today, make sure to follow up with family doctor for further evaluation of your blood pressure being elevated Prescriptions: Lidocaine [Lidoderm 5% transdermal patch] 1 each TP Q24H #5 adh..patch Referrals: Mahesh Horton MD [Primary Care Provider] - As needed Time of Disposition: 17:29 Medical Decision Making - Mark Inquiry Pt receiving controlled substance: No Mark was queried for this patient: No Vital Signs: 09/27/18 16:48 09/27/18 16:52 Temperature 98.8 F 98.8 F Temperature Source Oral Oral Pulse Rate [Left Radial] 91 H 90 Respiratory Rate 18 18 Blood Pressure [Right Arm] 164/103 H 164/103 H Blood Pressure Mean [Right Arm] 123 123 Blood Pressure Source [Right Arm] Automatic Cuff Blood Pressure Position [Right Arm] Sitting 02 Sat by Pulse Oximetry 97 97 Oxygen Delivery Method Room Air Room Air [facility] [place] HPI - General Stated complaint: lower back pain, nausea Time Seen by Provider: 09/27/18 17:02 Mode of Arrival: Ambulatory Source of Information: Patient Limitations: No Limitations Description of Symptoms (Recalled from Triage Doc. by RN): PT C/O LOWER BACK PAIN AND NAUSEA HEENT Symptoms (Recalled from RN notes): No Resp Symptoms (Recalled from RN notes): No Skin Symptoms (Recalled from RN notes): No MS Symptoms (Recalled from RN notes): Yes Functional Status (Recalled from RN notes): N/A - History of Present Illness Provider Complaint: Patient states that she has been having pain in her lower back area for awhile now and had MRI and was diagnosed with Buldging disks States that she was also recently hospitalized with renal failure and was told that she couldn't take Motrin and wanted to see if there was anything else she could get to take for pain and nausea States that she has been taking Tylenol but it hasn't helped much Denies new injury states that pain is like she has been having Denies bowel or bladder issues - Related Data Home Medications Medication Instructions Recorded Confirmed Escitalopram Oxalate 20 mg PO DAILY 09/01/18 09/23/18 dilTIAZem HCl [Diltiazem 180mg 180 mg PO DAILY 09/01/18 09/23/18 24Hr ER Cap] Carvedilol [Carvedilol 12.5mg Tab] 12.5 mg PO BID 09/02/18 09/23/18 quetiapine 100 mg tablet 50 mg PO QHS tab 09/14/18 09/23/18 Previous Rx's Medication Instructions Recorded acetaminophen ER 650 mg 650 mg PO Q8H PRN #90 tab 03/23/18 tablet,extended release
[2018-09-27 17:40] VITALS: BP 126/66; PULSE 65; RESP 18; TEMP 36.6; O2SAT 100
== END 2018-09-27 17:40 | disposition home or self-care (01) ==
PROVIDERS: Emergency Provider Nurse Practitioner; PCP Emergency Medicine
DX: M54.5 Low back pain (principal); G89.29 Other chronic pain; F41.8 Other specified anxiety disorders; I10 Essential (primary) hypertension; Z88.0 Allergy status to penicillin; N28.9 Disorder of kidney and ureter, unspecified
CPT/HCPCS: 99201

== ENCOUNTER → 2018-10-07 08:09 | Outpatient (CLI) | payer MEDICAID, SELFPAY ==
--- NOTE | 2018-10-07 08:10 | MR_ITS ---
MR knee RT wo con HISTORY: Knee pain and instability ITS.REASON: R knee injury ORDERING PHYSICIAN: Colin Edge APRN PATIENT AGE: 43 years Comparison: 09/10/2018 TECHNIQUE: Standard multiplanar multiecho sequences are performed without contrast. FINDINGS: The cruciate ligaments are intact. The lateral collateral ligament complex is intact. There is thickening of the superior aspect of the medial collateral ligament with increased T2 signal on both sides consistent with a grade 2 sprain or partial tear of the MCL. A complete tear is not felt to be present the patellar tendon and quadriceps tendon is intact. No meniscal tear apparent. There is some thinning of the patellar cartilage with slight increased T2 signal along the dorsal and superior aspect of the patella there is a small knee joint effusion and there is mild amount of pretibial edema as well as edema anterior to the patellar tendon. No bone bruise or fracture. IMPRESSION: 1. Grade 2 sprain/partial tear of the mid and superior aspect of the medial collateral ligament with mild soft tissue edema at this region. 2. Mild chondromalacia patella. 3. Small knee joint effusion as well as pretibial and prepatellar edema
== END ==
PROVIDERS: PCP Emergency Medicine; Visit Provider Nurse Practitioner Family
DX: M25.561 Pain in right knee (principal)
CPT/HCPCS: 73721

== ENCOUNTER → 2018-10-18 10:46 | Outpatient (POV) | payer MEDICAID, SELFPAY ==
[2018-10-18 11:06] VITALS: BP 184/88; PULSE 81; RESP 18; O2SAT 98; BMI 42.4
--- NOTE | 2018-10-18 16:04 | HMH.PMCON ---
Assessment and Plan - Assessment and plan all Dx Assessment and Plan for all problems:: We will schedule the patient for a lumbar epidural steroid injection at L4-L5. Given her symptomology believe she would benefit from an injection. We will schedule her and see her back after the procedure and reassess her symptoms at that time. She is not on any anticoagulation therapy. She is continuing a home stretching program. She is been instructed to call the office if she has any problems prior to her next appointment. She is also prescribed gabapentin 300 mg p.o. [address] Hernandez has reviewed this note and agrees with this plan of care. This note was dictated using voice recognition software and may contain errors or omissions HPI - Data of Consult Patient: new to practice Consult date: 10/18/18 Requesting Physician: Jil Conner APRN Primary Care Provider: Mahesh Horton MD - Consult Narrative Reason for consult: Back pain, leg pain, arm pain History of present illness: Ms. Brooke is a 43 year old female presents today for complaints of low back pain radiating to bilateral legs and bilateral arms. She reports that she has numbness and pain to her bilateral arms after a recent fall. She is referred to us today from Dr. Pham. She has completed 6 months of physical therapy without benefit. Patient also reports that she has an allergy to anti-inflammatories. She has continued stretching program. CC: Jil Conner APRN [facility] History Medical History: Reports:: Anxiety, Depression, Hyperlipidemia, Hypertension, Kidney Stones Denies:: Cancer, Diabetes Mellitus Type 1, Diabetes Mellitus Type 2, Gastrointestinal Bleed, Internal Pacemaker, MRSA, Seizures *Have you ever received a pneumonia vaccine?: No *Have you received a flu vaccine this season?: No Other Medical History: Reports: Anemia. Denies: Blood Transfusion Reaction Laterality Cases: Bilateral: Tonsillectomy Other Surgeries: Yes: Appendectomy, Cholecystectomy, Hysterectomy-Total, Other (lithotripsy x6). No: Pacemaker Amputation: No Fractures: No - *Social History Smoking Status: Never smoker # Packs/Day (cigarettes): 1 Alcohol Intake: never Alcohol Intake Frequency:: other Substance Use Type: painkillers, former substance user *Occupational Status:: other Housing: house Household Members: family *Travel in the last 8 weeks: None - Psychiatric History Expresses thoughts of harming self/others: None Suicide Plan Description: No Plan Pschychiatric History:: Reports:: Anxiety, Depression Family Hx:: Stroke Review of Systems - Allergic/Immunologic Comments: ROS General: no recent weight change, no fever, no sleep disturbances Respiratory: no cough, no shortness of air, no recurring pulmonary infections Cardiovascular/Peripheral Vascular: No chest pain, No palpitations, no edema, no shortness of breath. Gastrointestinal: no incontinence, normal bowel movements reported Genitourinary: no incontinence Musculoskeletal: Back pain Psychiatric: normal mood/ affect, [denies depression], [denies anxiety] Neurological: [denies weakness in extremities], [denies balance issues] Meds Home Medications Medication Instructions Recorded Confirmed Type acetaminophen ER 650 mg 650 mg PO Q8H PRN #90 tab 03/23/18 09/23/18 Rx tablet,extended release tizanidine 4 mg capsule 4 mg PO Q8H PRN #21 cap 08/13/18 09/23/18 Rx Escitalopram Oxalate 20 mg PO DAILY 09/01/18 09/23/18 History dilTIAZem HCl [Diltiazem 180mg 180 mg PO DAILY 09/01/18 09/23/18 History 24Hr ER Cap] Carvedilol [Carvedilol 12.5mg Tab] 12.5 mg PO BID 09/02/18 09/23/18 History losartan 100 mg tablet 100 mg PO DAILY #90 tab 09/14/18 09/23/18 Rx Lidocaine [Lidoderm 5% transdermal 1 each TP Q24H #5 adh..patch 09/27/18 Rx patch] quetiapine 100 mg tablet 50 mg PO QHS #90 tab 10/07/18 Rx Gabapentin [Gabapentin 300mg Cap] 300 mg PO TID 10/18/1810/02
--- NOTE | 2018-10-18 16:09 | P.CONS_ITS ---
Assessment and Plan - Assessment and plan all Dx Assessment and Plan for all problems:: We will schedule the patient for a lumbar epidural steroid injection at L4-L5. Given her symptomology believe she would benefit from an injection. We will schedule her and see her back after the procedure and reassess her symptoms at that time. She is not on any anticoagulation therapy. She is continuing a home stretching program. She is been instructed to call the office if she has any problems prior to her next appointment. She is also prescribed gabapentin 300 mg p.o. [address] Hernandez has reviewed this note and agrees with this plan of care. This note was dictated using voice recognition software and may contain errors or omissions HPI - Data of Consult Patient: new to practice Consult date: 10/18/18 Requesting Physician: Jil Conner APRN Primary Care Provider: Mahesh Horton MD - Consult Narrative Reason for consult: Back pain, leg pain, arm pain History of present illness: Ms. Brooke is a 43 year old female presents today for complaints of low back pain radiating to bilateral legs and bilateral arms. She reports that she has numbness and pain to her bilateral arms after a recent fall. She is referred to us today from Dr. Pham. She has completed 6 months of physical therapy without benefit. Patient also reports that she has an allergy to anti- inflammatories. She has continued stretching program. CC: Jil Conner APRN [facility] History Medical History: Reports:: Anxiety, Depression, Hyperlipidemia, Hypertension, Kidney Stones Denies:: Cancer, Diabetes Mellitus Type 1, Diabetes Mellitus Type 2, Gastroi ntestinal Bleed, Internal Pacemaker, MRSA, Seizures *Have you ever received a pneumonia vaccine?: No *Have you received a flu vaccine this season?: No Other Medical History: Reports: Anemia. Denies: Blood Transfusion Reaction Laterality Cases: Bilateral: Tonsillectomy Other Surgeries: Yes: Appendectomy, Cholecystectomy, Hysterectomy-Total, Other (lithotripsy x6). No: Pacemaker Amputation: No Fractures: No - *Social History Smoking Status: Never smoker # Packs/Day (cigarettes): 1 Alcohol Intake: never Alcohol Intake Frequency:: other Substance Use Type: painkillers, former substance user *Occupational Status:: other Housing: house Household Members: family *Travel in the last 8 weeks: None - Psychiatric History Expresses thoughts of harming self/others: None Suicide Plan Description: No Plan Pschychiatric History:: Reports:: Anxiety, Depression Family Hx:: Stroke Review of Systems - Allergic/Immunologic Comments: ROS General: no recent weight change, no fever, no sleep disturbances Respiratory: no cough, no shortness of air, no recurring pulmonary infections Cardiovascular/Peripheral Vascular: No chest pain, No palpitations, no edema, no shortness of breath. Gastrointestinal: no incontinence, normal bowel movements reported Genitourinary: no incontinence Musculoskeletal: Back pain Psychiatric: normal mood/ affect, [denies depression], [denies anxiety] Neurological: [denies weakness in extremities], [denies balance issues] Meds Home Medications Medication Instructions Recorded Confirmed Type acetaminophen ER 650 mg 650 mg PO Q8H PRN #90 tab 03/23/18 09/23/18 Rx tablet,extended release tizanidine 4 mg capsule 4 mg PO Q8H PRN #21 cap 08/13/18 09/23/18 Rx Escitalopram Oxalate
== END ==
PROVIDERS: PCP Emergency Medicine; Visit Provider Clinical Nurse Specialist Family Health
DX: M51.16 Intervertebral disc disorders with radiculopathy, lumbar region (principal)
CPT/HCPCS: 99212

== ENCOUNTER 2018-10-21 10:37 | Outpatient (RCR) | payer MEDICAID, SELFPAY | END 2018-10-21 10:50 | disposition home or self-care (01) | LOC: PT 10:37 | PROVIDERS: Visit Provider Orthopaedic Surgery | DX: S89.91XA Unspecified injury of right lower leg, initial encounter (principal); S83.411A Sprain of medial collateral ligament of right knee, initial encounter; M22.41 Chondromalacia patellae, right knee | CPT/HCPCS: 97760 ==

== ENCOUNTER → 2018-11-29 10:31 | Outpatient (POV) | payer MEDICAID, SELFPAY ==
[2018-11-29 10:40] VITALS: BP 133/91; PULSE 61; RESP 18; O2SAT 94; BMI 42.3
--- NOTE | 2018-11-29 10:52 | P.CONS_ITS ---
[facility] Pain Management SOAP Note Subjective:: Is a pleasant 43-year-old female who presents today for follow-up after lumbar epidural steroid injection. We are treating her for low back pain and lumbar radiculopathy. She has been sent to spine neurosurgeon for epidural injections. After her first injection she had 100% relief for over 2 weeks. Her pain is gradually beginning to come back she is continuing home stretching program. She is unable to take anti-inflammatories due to side effects. She is currently on gabapentin. She is had this pain for quite some time she is failed 6 months of physical therapy without benefit. ROS General: no recent weight change, no fever, no sleep disturbances Respiratory: no cough, no shortness of air, no recurring pulmonary infections Cardiovascular/Peripheral Vascular: No chest pain, No palpitations, no edema, no shortness of breath. Gastrointestinal: no incontinence, normal bowel movements reported Genitourinary: no incontinence Musculoskeletal: Back pain, leg pain Psychiatric: normal mood/ affect, Neurological: [denies weakness in extremities], [denies balance issues] Objective:: Physical Exam General: Alert and oriented x3, no acute distress, pleasant and cooperative, [on room air] Lungs: Resps E/U, Symmetrical chest expansion, Eyes: PERRL Musculoskeletal: Flexion and extension of lumbar spine somewhat guarded secondary to pain, deep tendon reflexes normal, strength in upper and lower extremities [5/5], [abnormal gait noted] Neurological: speech clear, gun stock checker equal, no gross sensory deficits Assessment:: Degenerative disc disease lumbar spine with lumbar radiculopathy Plan:: We will schedule her for a repeat L4-L5 lumbar epidural steroid injection given the efficacy of the first and I believe it would be beneficial. We also discussed potentially some topical anti-inflammatories. I will follow-up with the patient after her injection reassess her symptoms at that time. She is continuing a home stretching program. Dr. Hernandez has reviewed this note and agrees with this plan of care. This note was dictated using voice recognition software and may contain errors or omissions
== END ==
PROVIDERS: PCP Emergency Medicine; Visit Provider Clinical Nurse Specialist Family Health
DX: M51.16 Intervertebral disc disorders with radiculopathy, lumbar region (principal)
CPT/HCPCS: 99212

== ENCOUNTER → 2018-12-17 08:43 | Outpatient (POV) | payer MEDICAID, SELFPAY ==
[2018-12-17 08:58] VITALS: BP 188/98; PULSE 72; RESP 18; O2SAT 98; BMI 42.3
--- NOTE | 2018-12-17 10:41 | P.CONS_ITS ---
[facility] Pain Management SOAP Note Subjective:: This patient is a pleasant 43-year-old white female who we have been treating for low back pain with lumbar radiculopathy symptoms. She is having some increasing pain after her last lumbar epidural steroid injection. She describes this as a sharp pain in her lower lumbar area. She has no radicular symptoms. She is having trouble sleeping and it hurts with movement. Objective:: Alert and oriented x3 no acute distress. There is no signs of redness or swelling in the lower lumbar area. There is some tenderness at the injection site. Patient does have an antalgic gait. Motor strength of the lower extremities is 5/5. There is no gross sensory deficit. Assessment:: Degenerative disease of lumbar spine with lumbar radiculopathy symptoms with pain at the injection site after lumbar epidural steroid injection Plan:: We will start this patient on prednisone 20 mg twice a day for acute inflammation after lumbar epidural steroid injection. We will follow-up with her in 1 week. Will reevaluate symptoms at that time. Pain Management Hx Components *Have you ever received a pneumonia vaccine?: No *Have you received a flu vaccine this season?: No - *Social History *Occupational Status:: other *Travel in the last 8 weeks: None
== END ==
PROVIDERS: PCP Emergency Medicine; Visit Provider Anesthesiology
DX: Z09 Encounter for follow-up examination after completed treatment for conditions other than malignant neoplasm (principal); M51.16 Intervertebral disc disorders with radiculopathy, lumbar region
CPT/HCPCS: 99212

== ENCOUNTER 2018-12-29 19:01 | Observation (INO) ==
[2018-12-29 19:40] LABS: Basophils % 0.3 % (0.1-2.0); Eosinophils # 0.5 K/mm3 (0.0-0.4); Eosinophils % 3.8 % (0.1-12.0); Hematocrit 39.4 % (37.0-47.0); Hemoglobin 12.2 g/dL (12.2-16.2); Lymphocytes # 4.3 K/mm3 (0.7-4.5); Lymphocytes % 32.2 % (10-50); Mean Corpuscular Volume 96.9 fl (81-99); Mean Platelet Volume 6.4 fl (7.4-10.4); Monocytes # 0.7 K/mm3 (0.1-1.0); Monocytes % 5.1 % (1.7-9.3); Neutrophils # 7.9 K/mm3 (1.8-7.8); Neutrophils % 58.5 % (37.0-80.0); Platelet Count 422 K/mm3 (142-424); Red Blood Count 4.06 M/mm3 (4.20-5.40); White Blood Count 13.4 K/mm3 (4.8-10.8)
[2018-12-29 19:57] LABS: Alanine Aminotransferase 62 U/L (12-78); Albumin Level 3.5 gm/dL (3.4-5.0); Albumin/Globulin Ratio 0.9 (1.1-1.8); Alkaline Phosphatase 92 U/L (46-116); Anion Gap 14.3 mEq/L (5-15); Aspartate Amino Transferase 23 U/L (15-37); Bilirubin,Total 0.4 mg/dL (0.2-1.0); Blood Urea Nitrogen 34 mg/dL (7-18); Carbon Dioxide 25 mmol/L (21.0-32.0); Chloride 104 mmol/L (98-107); Globulin 3.7 gm/dl (1.3-3.2); Glucose 101 mg/dL (74-106); Sodium 140 mmol/L (136-145); Total Protein,Serum 7.2 gm/dL (6.4-8.2)
--- NOTE | 2018-12-29 20:18 | Emergency Department Note ---
ED Disposition Clinical Impression: CHRISTOPHER (acute kidney injury), Morbid obesity with BMI of 40.0-44.9, adult Disposition: Admitted as Observation Condition on Discharge: Good - Critical Care Critical Care Time: No Attestation: On 12/29/18, the high probability of a clinically significant, sudden or life threatening deterioration of the following system(s) required my full and direct attention, intervention and personal management. The time I documented below is in addition to time spent performing reported procedures but includes the following listed in this critical care notation. Medical Decision Making - Medical Records Medical records reviewed: Yes: I reviewed the patient's medical records. - Mark Inquiry Pt receiving controlled substance: No Vital Signs: 12/29/18 19:06 12/29/18 20:37 12/29/18 20:39 Temperature 98.5 F Temperature Source Oral Pulse Rate [Orthostatic Lying Right Radial] 61 Pulse Rate [Orthostatic Sitting Right Radial] 62 Pulse Rate [Orthostatic Standing Left Radial] Pulse Rate [Right Brachial] 112 H Respiratory Rate 19 Blood Pressure [Orthostatic Lying Right Arm] 104/56 L Blood Pressure [Orthostatic Sitting Right Arm] 107/58 L Blood Pressure [Orthostatic Standing Right Arm] Blood Pressure [Right Arm] 95/52 L Blood Pressure Mean [Right Arm] 66 Blood Pressure Source [Right Arm] Automatic Cuff Blood Pressure Position [Right Arm] Sitting 02 Sat by Pulse Oximetry 100 Oxygen Delivery Method Room Air 12/29/18 20:41 Temperature Temperature Source Pulse Rate [Orthostatic Lying Right Radial] Pulse Rate [Orthostatic Sitting Right Radial] Pulse Rate [Orthostatic Standing Left Radial] 77 Pulse Rate [Right Brachial] Respiratory Rate Blood Pressure [Orthostatic Lying Right Arm] Blood Pressure [Orthostatic Sitting Right Arm] Blood Pressure [Orthostatic Standing Right Arm] 88/65 L Blood Pressure [Right Arm] Blood Pressure Mean [Right Arm] Blood Pressure Source [Right Arm] Blood Pressure Position [Right Arm] 02 Sat by Pulse Oximetry Oxygen Delivery Method - Lab Data Lab results reviewed: Yes: I reviewed the patient's lab results. Lab Results 12/29/18 19:30: WBC 13.4 H, RBC 4.06 L, Hgb 12.2, Hct 39.4, MCV 96.9, MCH 30.0, MCHC 31.0 L, RDW 13.0, Plt Count 422, MPV 6.4 L, Neut % (Auto) 58.5, Lymph % (Auto) 32.2, [place] % (Auto) 5.1, Eos % (Auto) 3.8, Baso % (Auto) 0.3, Neut # (Au to) 7.9 H, Lymph # (Auto) 4.3, [place] # (Auto) 0.7, Eos # (Auto) 0.5 H, Baso # (Auto) 0.0 12/29/18 19:30: Sodium 140, Potassium 3.3 L, Chloride 104, Carbon Dioxide 25, Anion Gap 14.3, BUN 34 H, Creatinine 1.53 H, Estimated Creat Clear 95, Estimated GFR 37 L, Est GFR ( Amer) 45 L, Glucose 101, Calcium 9.0, Total Bilirubin 0.4, AST 23, ALT 62, Alkaline Phosphatase 92, Troponin I < 0.02, Total Protein 7.2, Albumin 3.5, Globulin 3.7 H, Albumin/Globulin Ratio 0.9 L Result diagrams: 12/29/18 19:30 12/29/18 19:30 Orders (Tests/Meds): ED MEDICATIONS Generic Name Dose Route Start Last Admin Trade Name Freq PRN Reason Stop Dose Admin Sodium Chloride 1,000 mls @ 999 mls/hr 12/29/18 20:45 Sod Chlor 0.9% 1000ml Bag IV 12/29/18 21:45 .Q1H1M [facility] ORDERS Category Date Time Status Drug Screen,Urine Stat Lab 12/29/18 19:13 Ordered Urinalysis and Microscopic Stat Lab 12/29/18 19:13 Ordered - Radiology Data #1 Image(s): Chest Image Reviewed: Yes I reviewed the patient's radiology image Preliminary Findings: Normal/NAD - CT Data CT Scan: Head Time Received: 20:[address] Reviewed: Yes: I have viewed the radiologist's interpretation Preliminary Findings: Normal/NAD - ECG Data Tracing #1 Normal Sinus Rhythm: Yes Ischemic changes: non-specific ST-T wave changes Weakness HPI - General Chief complaint: Weakness Stated complaint: Slurred speech, Just doesnt feel right Time Seen by Provider: 12/29/18 20:15 Mode of Arrival: Family Vehicle Source of Information: Patient Limitations: No Limitations Description of Symptoms (Recalled from ER Triage Doc. by RN): "feels funny"; pt states she had a hypertensive issue yesterday; today felt like she had slurred speech earlier. nih 0 at time of triage. no altered mental status present at this time. - History of Present Illness HPI Narrative: pt reports had elevated bp yesterday and today does not feel well - feels weak - no chest pain or syncope MD Complaint: generalized weakness Onset (ago): day(s) Duration: intermittent Migration: none Severity: moderate Associated symptoms: denies other symptoms - Related Data Home Medications Medication Instructions Recorded Confirmed Gabapentin [Gabapentin 300mg Cap] 300 mg PO TID 10/18/18 12/29/18 dilTIAZem HCl [Diltiazem 180mg 180 mg PO DAILY 12/10/18 12/29/18 24Hr ER Cap] carvedilol 12.5 mg tablet 25 mg PO BID tab 12/28/18 12/29/18 Quetiapine Fumarate [Seroquel 100 mg PO QHS 12/29/18 12/29/18 100mg tablet] Previous Rx's Medication Instructions Recorded diclofenac 1 % topical gel 4 g TOPICAL QID PRN #30 g 11/02/18 losartan 100 mg tablet 100 mg PO DAILY #30 tab 12/21/18 methocarbamol 750 mg tablet 750 mg PO BID PRN 14 Days #28 tab 12/21/18 escitalopram 20 mg tablet 20 mg PO DAILY #30 tab 12/28/18 Allergies Allergy/AdvReac Type Severity Reaction Status Date / Time amlodipine Allergy Intermediate swelling Verified 12/28/18 15:09 legs and feet Penicillins [PENICILLINS] Allergy Intermediate I-RASH Verified 12/28/18 15:09 metoclopramide [From REGLAN] Allergy Mild NA-HALLUCIN Verified 12/28/18 15:09 ATIONS amoxicillin Allergy Verified 12/28/18 15:09 ibuprofen Allergy Nausea Verified 12/28/18 15:09 [facility] History - Hepatitis A Screen Drug use history?: No High risk sexual behaviors?: No History of sexually transmitted infection?: No Currently employed?: No Childcare worker?: No Do you have indoor plumbing?: Yes Do you have electricity?: Yes Attestation statement:: This patient has been screened for Hepatitis A risk factors. I have reviewed the patient's past medical history: Yes Medical History: Reports:: Anxiety, Depression, Hyperlipidemia, Hypertension, Kidney Stones Denies:: Cancer, Diabetes Mellitus Type 1, Diabetes Mellitus Type 2, Gastrointestinal Bleed, Internal Pacemaker, MRSA, Seizures Other Medical History: Reports: Anemia. Denies: Blood Transfusion Reaction Comment: Anxiety and Depression Laterality Cases: Bilateral: Tonsillectomy Other Surgeries: Yes: Appendectomy, Cholecystectomy, Dilation and Curettage, Hysterectomy-Total, Other (lithotripsy x6). No: Pacemaker Amputation: No Fractures: No Comment: lithotripsy x5 - Social History Smoking Status: Never smoker # Packs/Day (cigarettes): 0 Alcohol Intake: never Alcohol Intake Frequency:: other Substance Use Type: painkillers, former substance user Occupational Status: other Housing: house Household Members: family - Psychiatric History Pschychiatric History:: Reports:: Anxiety, Depression Family Hx:: Stroke ROS Obtained: Yes All systems reviewed & no additional complaints - Constitutional Constitutional: Denies fever(s) - Eyes Eyes: Denies change in vision - ENT Ears, Nose, Mouth, and Throat: Denies neck pain - Cardiovascular Cardiovascular: Denies chest pain - Respiratory Respiratory: No cough - Gastrointestinal Gastrointestingal: Denies: black, tarry stools - Genitourinary Female Genitourinary: Denies hematuria, Denies pelvic pain - Musculoskeletal Musculoskeletal: Denies joint pain - Integumentary/Breasts Skin/Breast: Denies rash - Neurologic Neurologic: Reports as per HPI, Denies abnormal speech, Denies confusion, Denies convulsions, Denies focal weakness, Denies headache(s), Denies tinglin g/numbness/burning sensations, Reports weakness Physical Exam - General General appearance: alert, obese - Head Head exam: normocephalic - Eye Eye exam: Present: PERRL, EOMI. Absent: nystagmus - ENT ENT exam: Present: mucous membranes moist - Neck Neck exam: Present: trachea midline - Respiratory Respiratory exam: Absent: respiratory distress - Cardiovascular Cardiovascular exam: Present: regular rate, systolic murmur - Abdominal Exam Abdominal exam: Present: soft - Extremities Exam Extremities exam: Present: full ROM - Neurological Exam Neurological exam: Present: alert, oriented X3, CN II-XII intact. Absent: motor sensory deficit - Psychiatric Psychiatric exam: Present: normal affect - Skin Skin exam: Absent: rash
[2018-12-30 06:36] LABS: Basophils % 0.2 % (0.1-2.0); Eosinophils # 0.4 K/mm3 (0.0-0.4); Eosinophils % 3.7 % (0.1-12.0); Hematocrit 34.7 % (37.0-47.0); Lymphocytes # 4.2 K/mm3 (0.7-4.5); Lymphocytes % 38.8 % (10-50); Mean Corpuscular HGB Conc 30.6 g/dL (31.8-35.4); Mean Corpuscular Volume 97.8 fl (81-99); Mean Platelet Volume 6.2 fl (7.4-10.4); Monocytes # 0.6 K/mm3 (0.1-1.0); Monocytes % 5.8 % (1.7-9.3); Neutrophils # 5.5 K/mm3 (1.8-7.8); Neutrophils % 51.5 % (37.0-80.0); Platelet Count 352 K/mm3 (142-424); Red Blood Count 3.55 M/mm3 (4.20-5.40); Red Cell Distribution Width 13.1 % (11.5-17.5); White Blood Count 10.7 K/mm3 (4.8-10.8)
[2018-12-30 06:45] LABS: Anion Gap 10.9 mEq/L (5-15); Calcium 8.4 mg/dL (8.5-10.1)
[2018-12-30 06:56] LABS: Hemoglobin 10.6 g/dL (12.2-16.2)
--- NOTE | 2018-12-30 07:37 | Pharmacy Consult Notes ---
[facility] Pharmacy VTE Monitoring - Patient Demographics Admission date: 12/29/18 Report Date: 12/30/18 Time: 07:36 Allergies/Adverse Reactions: Patient Allergies amlodipine Allergy (Intermediate, Verified 12/28/18 15:09) swelling legs and feet Penicillins [PENICILLINS] Allergy (Intermediate, Verified 12/28/18 15:09) I-RASH metoclopramide [From REGLAN] Allergy (Mild, Verified 12/28/18 15:09) NA-HALLUCINATIONS amoxicillin Allergy (Verified 12/28/18 15:09) ibuprofen Allergy (Verified 12/28/18 15:09) Nausea Height: 1.68 m Weight: 124.284 kg Patient Problems: Current Active Problems CHRISTOPHER (acute kidney injury) (Acute) Morbid obesity with BMI of 40.0-44.9, adult (Chronic) - VTE Risk Labs: VTE Related Lab Results Hgb 10.6 g/dL (12.2-16.2) L D 12/30/18 05:42 Hct 34.7 % (37.0-47.0) L 12/30/18 05:42 Plt Count 352 K/mm3 (142-424) 12/30/18 05:42 BUN 35 mg/dL (7-18) H 12/30/18 05:42 Creatinine 1.38 mg/dL (0.55-1.02) H 12/30/18 05:42 Estimated Creat Clear 50 mL/min (50-200) 12/30/18 05:42 Was VTE Risk Assessment Performed: Yes VTE Risk Level: Very Low Risk - Prophylaxis VTE Prophylaxis Ordered?: Yes Types of VTE Prophylaxis: TEDS Knee High Location of Applied Device: Bilateral Lower Extremeties - VTE Diagnosis Confirmed Treatment or plan recommended: Continue Current Treatment
--- NOTE | 2018-12-30 08:24 | Consult Report ---
History of Present Illness Consult date: 12/30/18 Requesting physician: Mahesh Horton Consult reason: hypotension Chief complaint: Dizziness, hypotension Additional Medical History:: 1. Episodic dizziness A. CNI, 06/2018, less than 20% bilaterally 2. History of chest pain A. Trevor myoview, 08/2017, no ischemia with normal EF 3. History of hypertension A. Echocardiogram, 06/2018, 1. Mildly enlarged left atrium, normal left ventricular size, mild concentric left ventricular hypertrophy, visually estimated ejection fraction 55% with no regional wall motion abnormality, diastolic parameters are inconclusive. 2. Mild aortic, mild mitral and tricuspid regurgitation. 3. No significant pericardial effusion noted B. Renal ultrasound, 09/2018, 1. No hydronephrosis. 2. Mild bilateral renal cortical thinning. 3. Possible left nephrolithiasis 4. Anxiety/depression History of present illness: 43-year-old white female with history of hypertension, anxiety/depression and intermittent dizziness presented to the emergency department for further evaluation of elevated blood pressure noted on psychiatry visit yesterday. Patient relates that she has intermittent episodes of elevated blood pressure at home (a feeling of headache without blood pressure check) with intermittent intermittent episodes of lightheadedness and dizziness upon standing that resolves with sitting down. Patient denies any recent nausea, vomiting or diarrhea. She does relate about 2 cups of coffee a day and drinks plenty of fluids. Patient denies any chest pain, pressure or tightness. Recently she was admitted earlier this year for blood pressure issues at which time her hydrochlorothiazide was discontinued and her losartan was decreased to 50 mg daily. She denies any diuretic therapy at this time. She denies any recent medication changes. Cardiology consulted for evaluation. Troponins have returned normal overnight. EKG is sinus with no acute ST segment changes. Patient has had a renal ultrasound 3 months ago but not right renal duplex to evaluate the renal arteries. Manual blood pressure checked by me this morning, supine blood pressure was 80/54 mmHg with heart rate of 64 bpm, sitting blood pressure helio to 90/60 mmHg then standing blood pressure dropped to 80/50 mmHg with a heart rate of 80 bpm. Patient did have complaint of dizziness upon standing. [facility] History Medical History: Reports:: Anxiety, Depression, Hyperlipidemia, Hypertension, Kidney Stones Denies:: Cancer, Diabetes Mellitus Type 1, Diabetes Mellitus Type 2, Gastrointestinal Bleed, Internal Pacemaker, MRSA, Seizures *Have you ever received a pneumonia vaccine?: No *Have you received a flu vaccine this season?: No Other Medical History: Reports: Anemia. Denies: Blood Transfusion Reaction Laterality Cases: Bilateral: Tonsillectomy Other Surgeries: Yes: Appendectomy, Cholecystectomy, Dilation and Curettage, Hysterectomy-Total, Other (lithotripsy x6). No: Pacemaker Amputation: No Fractures: No - *Social History Educational Level: Completed High School Smoking Status: Never smoker # Packs/Day (cigarettes): 0 Alcohol Intake: never Alcohol Intake Frequency:: other Substance Use Type: painkillers, former substance user *Occupational Status:: other Housing: house Household Members: family *Travel in the last 8 weeks: None - Psychiatric History Expresses thoughts of harming self/others: None, Vague Suicide Plan Description: No Plan Pschychiatric History:: Reports:: Anxiety, Depression Family Hx:: Anemia, Cancer, Diabetes, Heart Attack, Hyperlipidemia, Hypertension, Kidney Disease, Stroke Meds Home Medications Medication Instructions Recorded Confirmed Type Gabapentin [Gabapentin 300mg Cap] 600 mg PO TID 10/18/18 12/29/18 History diclofenac 1 % topical gel 4 g TOPICAL QID PRN #30 g 11/02/18 12/29/18 Rx dilTIAZem HCl [Diltiazem 180mg 180 mg PO DAILY 12/10/18 12/29/18 History 24Hr ER Cap] losartan 100 mg tablet 100 mg PO DAILY #30 tab 12/21/18 12/29/18 Rx methocarbamol 750 mg tablet 750 mg PO BID PRN 14 Days #28 tab 12/21/18 12/29/18 Rx carvedilol 12.5 mg tablet 25 mg PO BID tab 12/28/18 12/29/18 History escitalopram 20 mg tablet 20 mg PO DAILY #30 tab 12/28/18 12/29/18 Rx Quetiapine Fumarate [Seroquel 100 mg PO QHS 12/29/18 12/29/18 History 100mg tablet] Allergies Allergy/AdvReac Type Severity Reaction Status Date / Time amlodipine Allergy Intermediate swelling Verified 12/28/18 15:09 legs and feet Penicillins [PENICILLINS] Allergy Intermediate I-RASH Verified 12/28/18 15:09 metoclopramide [From REGLAN] Allergy Mild NA-HALLUCIN Verified 12/28/18 15:09 ATIONS amoxicillin Allergy Verified 12/28/18 15:09 ibuprofen Allergy Nausea Verified 12/28/18 15:09 Review of Systems - *Cardiovascular Reports shortness of breath with activity, Denies chest pain - *Respiratory Reports shortness of breath with activity, Denies cough - *Gastrointestinal Denies abdominal pain, Denies nausea, Denies vomiting - *Genitourinary Denies blood in urine - *Musculoskeletal Denies joint pain, Denies back pain - *Neurologic Reports weakness, Denies abnormal speech, Denies confusion, Denies seizure-like activity, Denies localized weakness, Denies headache(s), Denies tingling/numbness/burning sensations Exam Vital signs and Labs for Last 24 Hours: Temp Pulse Resp BP Pulse Ox 98.4 F 57 L 15 95/48 L 97 12/30/18 04:00 12/30/18 04:00 12/30/18 04:00 12/30/18 04:00 12/30/18 04:00 Laboratory Results - last 24 hr 12/29/18 19:30: WBC 13.4 H, RBC 4.06 L, Hgb 12.2, Hct 39.4, MCV 96.9, MCH 30.0, MCHC 31.0 L, RDW 13.0, Plt Count 422, MPV 6.4 L, Neut % (Auto) 58.5, Lymph % (Auto) 32.2, [place] % (Auto) 5.1, Eos % (Auto) 3.8, Baso % (Auto) 0.3, Neut # (Auto) 7.9 H, Lymph # (Auto) 4.3, [place] # (Auto) 0.7, Eos # (Auto) 0.5 H, Baso # (Auto) 0.0 12/29/18 19:30: Sodium 140, Potassium 3.3 L, Chloride 104, Carbon Dioxide 25, Anion Gap 14.3, BUN 34 H, Creatinine 1.53 H, Estimated Creat Clear 95, Estimated GFR 37 L, Est GFR ( Amer) 45 L, Glucose 101, Calcium 9.0, Total Bilirubin 0.4, AST 23, ALT 62, Alkaline Phosphatase 92, Troponin I < 0.02, Total Protein 7.2, Albumin 3.5, Globulin 3.7 H, Albumin/Globulin Ratio 0.9 L 12/30/18 00:20: Troponin I < 0.02 12/30/18 03:20: Troponin I < 0.02 12/30/18 05:42: WBC 10.7, RBC 3.55 L, Hgb 10.6 L D, Hct 34.7 L, MCV 97.8, MCH 29.9, MCHC 30.6 L, RDW 13.1, Plt Count 352, MPV 6.2 L, Neut % (Auto) 51.5, Lymph % (Auto) 38.8, [place] % (Auto) 5.8, Eos % (Auto) 3.7, Baso % (Auto) 0.2, Neut # (Auto) 5.5, Lymph # (Auto) 4.2, [place] # (Auto) 0.6, Eos # (Auto) 0.4, Baso # (Auto) 0.0 12/30/18 05:42: Sodium 141, Potassium 3.9, Chloride 107, Carbon Dioxide 27, Anion Gap 10.9, BUN 35 H, Creatinine 1.38 H, Estimated Creat Clear 50, Estimated GFR 42 L, Est GFR ( Amer) 51 L, Glucose 94, Calcium 8.4 L, Magnesium 1.9 I & O for Last 24 hours: Intake & Output 12/27/18 12/28/18 12/29/18 12/30/18 11:59 11:59 11:59 11:59 Output Total 200 / 200 Balance -200 / -200 Weight 274 lb - *Routine HEENT Exam Head: Present: normocephalic Eye: Present: EOMI, PERRL ENT: Present: mucous membranes moist - *Routine Neck Exam Present: supple. Absent: JVD, carotid bruit - *Routine Respiratory Exam Present: CTA bilaterally. Absent: accessory muscle use, rales, rhonchi, wheezes - *Routine Cardiovascular Exam Present: RRR. Absent: murmur, gallop, rubs - *Routine Abdominal Exam Present: soft. Absent: tenderness, distended, guarding - *Routine Extremities Exam Absent: edema, calf tenderness - *Routine Neurological Exam Present: alert, oriented X3, moving all extremities Assessment and Plan (1) Morbid obesity with BMI of 40.0-44.9, adult Current visit: Yes Status: Chronic Category: Medical Code(s): E66.01 - Morbid (severe) obesity due to excess calories; Z68.41 - Body mass index (BMI) 40.0-44.9, adult (2) Hypotension Current visit: No Status: Acute Qualifiers: Hypotension type: unspecified hypotension type Qualified Code(s): I95.9 - Hypotension, unspecified Category: Medical Code(s): I95.9 - Hypotension, unspecified (3) Acute renal insufficiency Current visit: No Status: Acute Category: Medical Code(s): N28.9 - Disorder of kidney and ureter, unspecified (4) Anemia Current visit: No Status: Acute Qualifiers: Anemia type: unspecified type Qualified Code(s): D64.9 - Anemia, unspecified Category: Medical Code(s): D64.9 - Anemia, unspecified (5) Hypokalemia Current visit: No Status: Acute Category: Medical Code(s): E87.6 - Hypokalemia - Assessment and plan all Dx Assessment and Plan for all problems:: 1. Continue to hold antihypertensives. 2. Obtain a renal duplex today to evaluate for renal artery stenosis versus fibromuscular dysplasia 3. Continue to monitor orthostatic vital signs. 4. Continue IV fluids and monitoring renal status.
--- NOTE | 2018-12-30 08:25 | History & Physical Report ---
*Admission Date: 12/29/18 *Chief complaint: weakness *History of present illness: 43-year-old female presented to the ER with complaints of weakness and hypotension. Per ER note patient states she felt she had slurred speech. Denies chest pain. Patient admitted for acute kidney failure given IV fluids and cardiology consult [facility] History I have reviewed the patient's past medical history: Yes Medical History: Reports:: Anxiety, Depression, Hyperlipidemia, Hypertension, Kidney Stones Denies:: Cancer, Diabetes Mellitus Type 1, Diabetes Mellitus Type 2, Gastrointestinal Bleed, Internal Pacemaker, MRSA, Seizures *Have you ever received a pneumonia vaccine?: No *Have you received a flu vaccine this season?: No Other Medical History: Reports: Anemia. Denies: Blood Transfusion Reaction Laterality Cases: Bilateral: Tonsillectomy Other Surgeries: Yes: Appendectomy, Cholecystectomy, Dilation and Curettage, Hysterectomy-Total, Other (lithotripsy x6). No: Pacemaker Amputation: No Fractures: No - *Social History Educational Level: Completed High School Smoking Status: Never smoker # Packs/Day (cigarettes): 0 Alcohol Intake: never Alcohol Intake Frequency:: other Substance Use Type: painkillers, former substance user *Occupational Status:: other Housing: house Household Members: family *Travel in the last 8 weeks: None - Psychiatric History Expresses thoughts of harming self/others: None, Vague Suicide Plan Description: No Plan Pschychiatric History:: Reports:: Anxiety, Depression Family Hx:: Anemia, Cancer, Diabetes, Heart Attack, Hyperlipidemia, Hypertension, Kidney Disease, Stroke Review of Systems - Review of Systems Review of systems:: pertinent systems reviewed and negative unless documented below - Constitutional Reports weakness, Denies body ache(s), Denies fatigue, Denies fever(s) - Eyes Denies blurry vision - ENT Denies dizziness, Denies headache(s), Denies sore throat - *Cardiovascular Denies chest pain, Denies chest pain at rest, Denies chest pain with activity, Denies shortness of breath, Denies generalized swelling - *Respiratory Denies chest congestion, Denies cough, Denies shortness of breath - *Gastrointestinal Denies nausea, Denies vomiting - *Genitourinary Reports other, Denies difficulty urinating Comments: decrease in amount of voiding - *Musculoskeletal Denies joint pain, Denies back pain, Denies muscle weakness - Integumentary/Breasts Denies rash - *Neurologic Reports weakness, Denies abnormal speech, Denies confusion, Denies seizure-like activity, Denies dizziness, Denies localized weakness, Denies headache(s), Denies tingling/numbness/burning sensations - Psychiatric Denies anxiety, Denies confusion - Endocrine Denies flushing - Hematologic/Lymphatic Denies enlarged lymph nodes - Allergic/Immunologic Denies itchy eyes, Denies hives Meds Home Medications Medication Instructions Recorded Confirmed Type Gabapentin [Gabapentin 300mg Cap] 600 mg PO TID 10/18/18 12/29/18 History diclofenac 1 % topical gel 4 g TOPICAL QID PRN #30 g 11/02/18 12/29/18 Rx dilTIAZem HCl [Diltiazem 180mg 180 mg PO DAILY 12/10/18 12/29/18 History 24Hr ER Cap] losartan 100 mg tablet 100 mg PO DAILY #30 tab 12/21/18 12/29/18 Rx methocarbamol 750 mg tablet 750 mg PO BID PRN 14 Days #28 tab 12/21/18 12/29/18 Rx carvedilol 12.5 mg tablet 25 mg PO BID tab 12/28/18 12/29/18 History escitalopram 20 mg tablet 20 mg PO DAILY #30 tab 12/28/18 12/29/18 Rx Quetiapine Fumarate [Seroquel 100 mg PO QHS 12/29/18 12/29/18 History 100mg tablet] Allergies Allergy/AdvReac Type Severity Reaction Status Date / Time amlodipine Allergy Intermediate swelling Verified 12/28/18 15:09 legs and feet Penicillins [PENICILLINS] Allergy Intermediate I-RASH Verified 12/28/18 15:09 metoclopramide [From REGLAN] Allergy Mild NA-HALLUCIN Verified 12/28/18 15:09 ATIONS amoxicillin Allergy Verified 12/28/18 15:09 ibuprofen Allergy Nausea Verified 12/28/18 15:09 Exam Vital signs and Labs for Last 24 Hours: Temp Pulse Resp BP Pulse Ox 98.4 F 57 L 15 95/48 L 97 12/30/18 04:00 12/30/18 04:00 12/30/18 04:00 12/30/18 04:00 12/30/18 04:00 Laboratory Results - last 24 hr 12/29/18 19:30: WBC 13.4 H, RBC 4.06 L, Hgb 12.2, Hct 39.4, MCV 96.9, MCH 30.0, MCHC 31.0 L, RDW 13.0, Plt Count 422, MPV 6.4 L, Neut % (Auto) 58.5, Lymph % (Auto) 32.2, [place] % (Auto) 5.1, Eos % (Auto) 3.8, Baso % (Auto) 0.3, Neut # (Auto) 7.9 H, Lymph # (Auto) 4.3, [place] # (Auto) 0.7, Eos # (Auto) 0.5 H, Baso # (Auto) 0.0 12/29/18 19:30: Sodium 140, Potassium 3.3 L, Chloride 104, Carbon Dioxide 25, Anion Gap 14.3, BUN 34 H, Creatinine 1.53 H, Estimated Creat Clear 95, Estimated GFR 37 L, Est GFR ( Amer) 45 L, Glucose 101, Calcium 9.0, Total Bilirubin 0.4, AST 23, ALT 62, Alkaline Phosphatase 92, Troponin I < 0.02, Total Protein 7.2, Albumin 3.5, Globulin 3.7 H, Albumin/Globulin Ratio 0.9 L 12/30/18 00:20: Troponin I < 0.02 12/30/18 03:20: Troponin I < 0.02 12/30/18 05:42: WBC 10.7, RBC 3.55 L, Hgb 10.6 L D, Hct 34.7 L, MCV 97.8, MCH 29.9, MCHC 30.6 L, RDW 13.1, Plt Count 352, MPV 6.2 L, Neut % (Auto) 51.5, Lymph % (Auto) 38.8, [place] % (Auto) 5.8, Eos % (Auto) 3.7, Baso % (Auto) 0.2, Neut # (Auto) 5.5, Lymph # (Auto) 4.2, [place] # (Auto) 0.6, Eos # (Auto) 0.4, Baso # (Auto) 0.0 12/30/18 05:42: Sodium 141, Potassium 3.9, Chloride 107, Carbon Dioxide 27, Anion Gap 10.9, BUN 35 H, Creatinine 1.38 H, Estimated Creat Clear 50, Estimated GFR 42 L, Est GFR ( Amer) 51 L, Glucose 94, Calcium 8.4 L, Magnesium 1.9 I & O for Last 24 hours: Intake & Output 12/27/18 12/28/18 12/29/18 12/30/18 11:59 11:59 11:59 11:59 Output Total 200 / 200 Balance -200 / -200 Weight 274 lb - Constitutional no acute distress - *Routine HEENT Exam Head: Present: normocephalic Eye: Present: PERRL ENT: Present: mucous membranes moist - *Routine Neck Exam Present: supple. Absent: lymphadenopathy - *Routine Respiratory Exam Present: CTA bilaterally - *Routine Cardiovascular Exam Present: RRR - *Routine Abdominal Exam Present: soft, normoactive bowel sounds. Absent: tenderness - *Routine Extremities Exam Present: full ROM. Absent: cyanosis, clubbing, edema - *Routine Skin Exam Present: warm. Absent: rash - *Routine Neurological Exam Present: alert, oriented X3 - Routine Psychiatric Exam Present: normal affect Assessment and Plan (1) Morbid obesity with BMI of 40.0-44.9, adult Current visit: Yes Status: Chronic Category: Medical Code(s): E66.01 - Morbid (severe) obesity due to excess calories; Z68.41 - Body mass index (BMI) 40.0-44.9, adult (2) Acute renal insufficiency Current visit: No Status: Acute Category: Medical Code(s): N28.9 - Disorder of kidney and ureter, unspecified (3) Hypotension Current visit: No Status: Acute Qualifiers: Hypotension type: unspecified hypotension type Qualified Code(s): I95.9 - Hypotension, unspecified Category: Medical Code(s): I95.9 - Hypotension, unspecified - Assessment and plan all Dx Assessment and Plan for all problems:: Rounded with Dr. Horton all orders per Sol cardiology consult- for med changes
--- NOTE | 2018-12-30 11:02 | Electrocardiograph Report ---
APPROVED REPORT Exam: Resting ECG HR:61 bpm ECG Measurements Heart Rate 61 AXES MO 158 P 33 QRSd 86 QRS 5 QT 418 T33 QTc 420 <Conclusion> Normal sinus rhythm Moderate voltage criteria for LVH, may be normal variant Borderline ECG Electronically signed by : David Garcia, 12/30/2018 11:01:59
[2018-12-31 06:11] LABS: Basophils % 0.3 % (0.1-2.0); Eosinophils # 0.4 K/mm3 (0.0-0.4); Eosinophils % 4.5 % (0.1-12.0); Hematocrit 33.4 % (37.0-47.0); Hemoglobin 10.3 g/dL (12.2-16.2); Lymphocytes % 37.8 % (10-50); Mean Corpuscular HGB Conc 30.8 g/dL (31.8-35.4); Mean Corpuscular Volume 98.7 fl (81-99); Mean Platelet Volume 7.4 fl (7.4-10.4); Monocytes # 0.4 K/mm3 (0.1-1.0); Monocytes % 4.9 % (1.7-9.3); Neutrophils # 4.2 K/mm3 (1.8-7.8); Neutrophils % 52.4 % (37.0-80.0); Platelet Count 271 K/mm3 (142-424); Red Blood Count 3.38 M/mm3 (4.20-5.40)
[2018-12-31 06:43] LABS: Calcium 8.1 mg/dL (8.5-10.1)
--- NOTE | 2018-12-31 08:26 | Progress Note ---
Subjective Date: 12/31/18 Time: 08:20 Principal diagnosis: hypotension Interval history: 43-year-old white female in bed in no acute distress. Symptoms of dizziness have improved overnight. She denies any chest pain, pressure or tightness. Renal ultrasound report is pending Manual orthostatic blood pressure readings include lying blood pressure of 110/80 mm Hg with a heart rate of 68 bpm, sitting blood pressure 120/80 mmHg and then standing 130/80 millimeters of mercury with a heart rate of 80 bpm. Mild dizziness noted with standing but much improved over yesterday. Exam Vital signs and Labs for Last 24 Hours: Temp Pulse Resp BP Pulse Ox 98.4 F 66 22 118/72 95 12/31/18 08:00 12/31/18 08:00 12/31/18 08:00 12/31/18 08:00 12/31/18 08:00 Laboratory Results - last 24 hr 12/31/18 06:00: WBC 8.0 D, RBC 3.38 L, Hgb 10.3 L, Hct 33.4 L, MCV 98.7, MCH 30.4, MCHC 30.8 L, RDW 13.0, Plt Count 271, MPV 7.4, Neut % (Auto) 52.4, Lymph % (Auto) 37.8, [place] % (Auto) 4.9, Eos % (Auto) 4.5, Baso % (Auto) 0.3, Neut # (Auto) 4.2, Lymph # (Auto) 3.0, [place] # (Auto) 0.4, Eos # (Auto) 0.4, Baso # (Auto) 0.0 12/31/18 06:00: Sodium 144, Potassium 4.0, Chloride 110 H, Carbon Dioxide 26, Anion Gap 12.0, BUN 19 H D, Creatinine 0.93 D, Estimated Creat Clear 75, Estimated GFR 66, Est GFR ( Amer) 80 D, Glucose 136 H, Calcium 8.1 L I & O for Last 24 hours: Intake & Output 12/28/18 12/29/18 12/30/18 12/31/18 11:59 11:59 11:59 11:59 Intake Total 360 / 360 5656 / 5656 Output Total 450 / 450 1750 / 1750 Balance -90 / -90 3906 / 3906 Weight 274 lb 284 lb 6 oz - *Routine HEENT Exam Head: Present: normocephalic Eye: Present: EOMI, PERRL ENT: Present: mucous membranes moist - *Routine Respiratory Exam Present: CTA bilaterally. Absent: accessory muscle use, rales, rhonchi, wheezes - *Routine Cardiovascular Exam Present: RRR. Absent: murmur, gallop, rubs - *Routine Neurological Exam Present: alert, oriented X3, moving all extremities Progress Note: A&P (1) Morbid obesity with BMI of 40.0-44.9, adult Status: Chronic Current Visit: Yes (2) Hypotension Status: Acute Current Visit: No (3) Acute renal insufficiency Status: Acute Current Visit: No (4) Anemia Status: Acute Current Visit: No (5) Hypokalemia Status: Acute Current Visit: No Assessment and Plan for All Diagnoses:: 1. Continue to hold antihypertensives for now but may need restarting at lower doses prior to discharge (losartan 25 mg daily and carvedilol 12.5 mg BID) 2. Continue pushing p.o. fluids 3. Renal artery u/s is normal bilaterally. 4. Possibly home later today.
--- NOTE | 2018-12-31 08:46 | Cardiology Report ---
APPROVED REPORT Machine Pecan Picker: ANH Study Quality: Adequate Indications: labile HTN, CHRISTOPHER Risk Factors Hypertension Obesity Renal Artery Doppler Proximal (R) 172.0/29.3 cm/sec Mid (R) 108.0/30.8 cm/sec Distal (R) 104.0/26.8 cm/sec Renal Aorta Ratio (R)1.80 Segmental A. (R) 51.1/15.5 cm/sec RI: 0.69 Segmental A. Sup (R) 48.3/11.5 cm/sec Segmental A. Mid (R) 52.5/18.5 cm/sec Segmental A. Inf (R) 52.5/16.5 cm/sec Proximal (L) 147.0/20.6 cm/sec Mid (L) 132.0/36.3 cm/sec Distal (L) 70.1/20.3 cm/sec Renal Aorta Ratio (L)1.60 Segmental A. (L) 60.8/21.9 cm/sec RI: 0.63 Segmental A. Sup (L) 70.7/19.5 cm/sec Segmental A. Mid (L) 41.0/20.5 cm/sec Segmental A. Inf (L) 70.7/25.6 cm/sec Renal Measurements Kidney Size (R) 13.2x8.7 cm Cortical Thickness (R) 1.5 cm Kidney Size (L) 11.5x6.5 cm Cortical Thickness (L) 1.4 cm Aortic Doppler VelocityWaveform Sup Ramo Ao 94.0 cm/sec Findings Normal bilateral renal artery ultrasound. Conclusion Normal bilateral renal artery ultrasound. Electronically signed by : Taras Rosa MD 12/31/2018 08:45:47
--- NOTE | 2018-12-31 09:22 | Discharge Summary ---
General - General Admission date:: 12/29/18 Discharge date: 12/31/18 HPI HPI: 43-year-old female presented to the ER with complaints of weakness and hypotension. Per ER note patient states she felt she had slurred speech. Denies chest pain. Patient admitted for acute kidney failure given IV fluids and cardiology consult Hospital Course Hospital Course: EKG normal sinus rhythm chest x ray: neg ct head :neg, no acute findings renal artery duplex:Findings Normal bilateral renal artery ultrasound. Conclusion Normal bilateral renal artery ultrasound. Cardiology consult see note, cardiology recommendations for discharge is losartan 25 mg daily and Coreg 12.5 daily. Patient admitted for acute renal insufficiency with a creatinine on 12/29 of 1.53, on 12/30 1.38, and on 12/31 0.93. Patient will be discharged home with an outpatient consult to Dr. Julien. Decreased on her medication and increase in p.o. intake. Patient is to take no [id number] NSAIDs stop diltiazem. Follow up in office on for repeat bmp( have done prior to coming to office.) Objective Vital signs: Temp Pulse Resp BP Pulse Ox 98.4 F 68 22 110/80 96 12/31/18 08:00 12/31/18 08:44 12/31/18 08:00 12/31/18 08:44 12/31/18 08:00 no acute distress - *Routine HEENT Exam Head: Present: normocephalic Eye: Present: PERRL ENT: Present: mucous membranes moist - *Routine Neck Exam Present: full ROM - *Routine Respiratory Exam Present: CTA bilaterally - *Routine Cardiovascular Exam Present: RRR - *Routine Abdominal Exam Present: soft, normoactive bowel sounds - *Routine Extremities Exam Present: full ROM - *Routine Skin Exam Present: intact - *Routine Neurological Exam Present: alert, oriented X3 - Routine Psychiatric Exam Present: normal affect Results Labs on day of discharge: Labs from last 24 hours 12/31/18 12/31/18 06:00 06:00 WBC 8.0 D RBC 3.38 L Hgb 10.3 L Hct 33.4 L MCV 98.7 MCH 30.4 MCHC 30.8 L RDW 13.0 Plt Count 271 MPV 7.4 Neut % (Auto) 52.4 Lymph % (Auto) 37.8 [place] % (Auto) 4.9 Eos % (Auto) 4.5 Baso % (Auto) 0.3 Neut # (Auto) 4.2 Lymph # (Auto) 3.0 [place] # (Auto) 0.4 Eos # (Auto) 0.4 Baso # (Auto) 0.0 Sodium 144 Potassium 4.0 Chloride 110 H Carbon Dioxide 26 Anion Gap 12.0 BUN 19 H D Creatinine 0.93 D Estimated Creat Clear 75 Estimated GFR 66 Est GFR ( Amer) 80 D Glucose 136 H Calcium 8.1 L - Additional Comments discussed with roman all orders per roman DS: Diagnosis - Discharge Diagnosis (1) Morbid obesity with BMI of 40.0-44.9, adult Status: Chronic (2) Hypotension Status: Acute (3) Acute renal insufficiency Status: Acute (4) Anemia Status: Acute (5) Hypokalemia Status: Acute Discharge Plan - Patient Discharge Instructions ACTIVITY: Continue current activity DIET: continue same diet Patient Instructions: Malignant Hypertension, Acute Renal Failure - Follow up Plan Follow up with: Colin Edge APRN [Nurse Practitioner] - 01/04/19 Edward Tavera MD [Staff Physician] - 1 week Can Julien [Consulting Physician] - 2 weeks Disposition: Home, Self-Residential Medications: Home Medications Medication Instructions Recorded Confirmed Type Gabapentin [Gabapentin 300mg Cap] 600 mg PO TID 10/18/18 12/29/18 History diclofenac 1 % topical gel 4 g TOPICAL QID PRN #30 g 11/02/18 12/29/18 Rx dilTIAZem HCl [Diltiazem 180mg 180 mg PO HS 12/10/18 12/30/18 History 24Hr ER Cap] methocarbamol 750 mg tablet 750 mg PO BID PRN 14 Days #28 tab 12/21/18 12/29/18 Rx carvedilol 12.5 mg tablet 12.5 mg PO BID tab 12/28/18 12/30/18 History Quetiapine Fumarate [Seroquel 50 mg PO HS 12/29/18 12/30/18 History 100mg tablet] Escitalopram Oxalate 20 mg PO HS 12/30/18 12/30/18 History Losartan Potassium 100 mg PO HS 12/30/18 12/30/18 History Losartan Potassium 25 mg PO DAILY 30 Days #30 tab 12/31/18 Rx Prescriptions/Medication Reconciliation: New Losartan Potassium 25 mg PO DAILY 30 Days #30 tab Continued diclofenac 1 % topical gel 4 g TOPICAL QID PRN #30 g PRN Reason: pain methocarbamol 750 mg tablet 750 mg PO BID PRN 14 Days #28 tab PRN Reason: Muscle Spasm carvedilol 12.5 mg tablet 12.5 mg PO BID tab Gabapentin [Gabapentin 300mg Cap] 600 mg PO TID Quetiapine Fumarate [Seroquel 100mg tablet] 50 mg PO HS Escitalopram Oxalate 20 mg PO HS Discontinued dilTIAZem HCl [Diltiazem 180mg 24Hr ER Cap] 180 mg PO HS Losartan Potassium 100 mg PO HS - Problem Reconciliation Problems Reviewed?: Yes
== END 2018-12-31 10:43 | disposition home or self-care (01) ==
LOC: ER 19:01 → 2ND 19:01
PROVIDERS: ADMIT Emergency Medicine; ATTEND Emergency Medicine
CPT/HCPCS: 36415; 70450; 71020; 71046; 80048; 80053; 83735; 84484; 85025; 93005; 93976; 99284; G0378

== ENCOUNTER 2019-10-22 20:06 | Emergency (ER) | payer OTHER, SELFPAY ==
[2019-10-22 20:20] VITALS: BP 169/116; PULSE 99; RESP 20; TEMP 36.8; O2SAT 96; BMI 43.7
[2019-10-22 20:25] LABS: Apearance,Urine Clear (Clear); Color,Urine Dark Yellow (Yellow); PH,Urine 5.5 (5.0-8.5); Protein,Urine 1+ (Negative)
[2019-10-22 20:26] LABS: Bilirubin,Urine Negative (Negative); Blood, Urine Trace (Negative); Glucose,Urine (UA) Negative (Negative); Ketones,Urine Negative (Negative); UTC Leukocyte Esterase,Urine Negative (Negative); UTC Nitrate,Urine Negative (Negative); Urobilinogen,Urine 0.2 EU/dl (0.2)
--- NOTE | 2019-10-22 20:31 | HMH.EDUTC ---
[facility] – [place], [place] Disposition Clinical Impression: Right flank pain UTI (urinary tract infection) Qualifiers: Urinary tract infection type: site unspecified Hematuria presence: with hematuria Qualified Code(s): N39.0 - Urinary tract infection, site not specified Disposition: Home, Self-Care Condition on Discharge: Good Instructions: Urinary Tract Infection, DI for Urinary Tract Infection (UTI) Additional Instructions: Drink plenty of fluids. Take tylenol or ibuprofen for pain or fever. Take the medications as directed. Follow up with your regular doctor. GO TO THE ER FOR ANY WORSENING SYMPTOMS The pyridium will make your urine turn orange, this is an expected side effect. It will stain your clothes if it comes into contact with them. Prescriptions: Ondansetron [Zofran 4mg ODT] 4 mg PO Q8HP PRN #10 tab.rapdis PRN Reason: Nausea Transmission Status: Pending to [facility] Ciprofloxacin HCl [Cipro 500mg Tab] 500 mg PO BID 7 Days #14 tab Transmission Status: Pending to [facility] Phenazopyridine HCl [Pyridium 200mg Tablet] 200 pow PO TID #6 tab Transmission Status: Pending to [facility] Referrals: Mahesh Horton MD [Primary Care Provider] - Time of Disposition: 20:41 Medical Decision Making - Medical Records Medical records reviewed: No: I reviewed the patient's medical records. - Mark Inquiry Pt receiving controlled substance: No Vital Signs: 10/22/19 20:20 Temperature 98.2 F Temperature Source Oral Pulse Rate [Right Brachial] 99 H Respiratory Rate 20 Blood Pressure [Right Arm] 169/116 H Blood Pressure Mean [Right Arm] 133 Blood Pressure Source [Right Arm] Automatic Cuff Blood Pressure Position [Right Arm] Sitting 02 Sat by Pulse Oximetry 96 Oxygen Delivery Method Room Air - Lab Data Lab results reviewed: Yes: I reviewed the patient's lab results. Lab Results 10/22/19 20:24: Urine Color Dark yellow, Urine Appearance Clear, Urine pH 5.5, Ur Specific Center 1.030, Urine Protein 1+, Urine Glucose (UA) Negative, Urine Ketones Negative, Urine Blood Trace, Urine Nitrate Negative, Urine Bilirubin Negative, Urine Urobilinogen 0.2, Ur Leukocyte Esterase Negative [facility] [place], [place] HPI - General Stated complaint: pain in R side Time Seen by Provider: 10/22/19 20:31 Mode of Arrival: Ambulatory Source of Information: Patient Limitations: No Limitations Description of Symptoms (Recalled from Triage Doc. by RN): PATIENT C/O RIGHT FLANK/SIDE PAIN AND BURNING/PAIN WITH URINATION X 1 WEEK HEENT Symptoms (Recalled from RN notes): No Resp Symptoms (Recalled from RN notes): No Skin Symptoms (Recalled from RN notes): No MS Symptoms (Recalled from RN notes): No Functional Status (Recalled from RN notes): WNL - History of Present Illness Provider Complaint: She c/o 1 week of worsening right lower back and flank pain. She has also had some burning while urinating and foul smelling urine. She has a history of both frequent uti's and kidney stones. - Related Data Home Medications Medication Instructions Recorded Confirmed Doxepin HCl [Sinequan 25mg capsule] 25 mg PO .COMPLEX 10/22/19 10/22/19 Losartan Potassium [Cozaar 25mg 25 mg PO DAILY 10/22/19 10/22/19 Tablets] carvediloL [Carvedilol 25mg Tab] 12.5 mg PO BID 10/22/19 10/22/19 Previous Rx's Medication Instructions Recorded Ciprofloxacin HCl [Cipro 500mg 500 mg PO BID 7 Days #14 tab 10/22/19 Tab] Ondansetron [Zofran 4mg ODT] 4 mg PO Q8HP PRN #10 tab.rapdis 10/22/19 Phenazopyridine HCl [Pyridium 200 pow PO TID #6 tab 10/22/19 200mg Tablet] Allergies Allergy/AdvReac Type Severity Reaction Status Date / Time amlodipine Allergy Intermediate swelling Verified 08/05/19 03:02 legs and feet Penicillins [PENICILLINS] Allergy Intermediate I-RASH Verified 08/05/19 03:02 metoclopramide [From REGLAN] Allergy Mild NA-HALLUCIN Verified 08/05/19 03:02 ATIONS amoxicillin Allergy
[2019-10-22 20:42] VITALS: BP 169/116; PULSE 99; RESP 20; TEMP 36.8; O2SAT 96
== END 2019-10-22 20:45 | disposition home or self-care (01) ==
PROVIDERS: Emergency Provider Nurse Practitioner Family; PCP Emergency Medicine
DX: N30.01 Acute cystitis with hematuria (principal); F41.8 Other specified anxiety disorders; I10 Essential (primary) hypertension; E78.5 Hyperlipidemia, unspecified; Z87.442 Personal history of urinary calculi; Z90.49 Acquired absence of other specified parts of digestive tract; Z88.0 Allergy status to penicillin; Z88.8 Allergy status to other drugs, medicaments and biological substances
CPT/HCPCS: 81003; 99201

== ENCOUNTER 2019-11-07 02:39 | Emergency (ER) | payer OTHER, SELFPAY ==
[2019-11-07 02:50] VITALS: BP 178/86; PULSE 75; RESP 16; TEMP 36.6; O2SAT 98; BMI 45.1
--- NOTE | 2019-11-07 03:02 | CT_ITS ---
PROCEDURE: CT ABDOMEN PELVIS W CON CLINICAL INDICATION: abd pain Right-sided abdominal pain with nausea COMPARISON: CT ABDOMEN PELVIS W CON from 04/07/2019 TECHNIQUE: IV Contrast: 75ML OPTIRAY 350 Oral Contrast None Axial images obtained with sagittal and coronal reformats. All CT scans at the facility use one or more dose reduction, viz: automated exposure control, ma/kV adjustment per patient size (including targeted exams where dose is matched to indication, i.e. head), or iterative reconstruction technique. FINDINGS: LOWER THORAX: Stable subpleural nodule right lower lobe posterior medially at mm. ABDOMEN & PELVIS: Prior cholecystectomy. Fatty liver. The spleen, adrenal glands, and pancreas have an unremarkable appearance. There are few small peripancreatic and retroperitoneal lymph nodes. There are nonobstructing punctate bilateral renal calculi. There is some scarring along the lower pole of the left kidney. No ureteral calculi. No hydronephrosis. Prior appendectomy. No intestinal obstruction or free air. Prior hysterectomy. No evidence of diverticulitis. No pelvic mass or abnormal fluid collection. No acute bony anomaly. IMPRESSION: 1. Nonobstructing bilateral renal calculi. 2. Fatty liver. 3. No acute abdominal or pelvic findings. Dictated by: Taras Rosa MD 11/07/2019 08:28 Electronically signed by Taras Rosa MD in [place] 11/07/2019 08:28
[2019-11-07 03:09] LABS: Microscopic, Urine URINE MICROSCOPIC (MICROSCOPIC)
[2019-11-07 03:13] LABS: Appearance,Urine CLEAR (Clear); Bilirubin,Urine Negative (Negative); Blood, Urine Negative (Negative); Color,Urine YELLOW (Yellow); Glucose,Urine (UA) Negative (Negative); Ketones,Urine Negative (Negative); Leukocyte Esterase,Urine Negative (Negative); Nitrate,Urine Negative (Negative); Protein,Urine Negative (Negative); Specific Gravity, Urine 1.025 (1.005-1.030); Urobilinogen,Urine 0.2 EU/dl (0.2)
[2019-11-07 03:15] LABS: Urine Pregnancy, HCG Qual. Negative (Negative)
[2019-11-07 03:16] LABS: Amorphous Sediment,Urine Trace /lpf; Mucus,Urine 1+ /lpf
[2019-11-07 03:16] LABS: Alanine Aminotransferase 68 U/L (12-78); Albumin Level 4.9 g/dl (3.5-5.0); Albumin/Globulin Ratio 1.2 (1.1-1.8); Alkaline Phosphatase 130 U/L (38-126); Amylase 108 U/L (30-110); Anion Gap 11.7 mEq/L (5-15); Aspartate Amino Transferase 65 U/L (14-36); Basophils # 0.1 K/mm3 (0-0.2); Basophils % 0.5 % (0.1-2.0); Bilirubin,Total 0.6 mg/dl (0.2-1.3); Blood Urea Nitrogen 14 mg/dl (7-17); Carbon Dioxide 30 mmol/L (22.0-30.0); Chloride 102 mmol/L (98-107); Creatinine Clearance Estimated 76 mL/min (50-200); Eosinophils # 0.4 K/mm3 (0.0-0.4); Eosinophils % 3.5 % (0.1-12.0); Estimated Glomerular Filt Rate 69 ml/min (>60); GFR (African American) 83 ML/MIN (>60); Glucose 103 mg/dl (74-100); Hematocrit 40.9 % (37.0-47.0); Hemoglobin 13.5 g/dL (12.2-16.2); Lipase 252 U/L (23-300); Lymphocytes # 4.7 K/mm3 (0.7-4.5); Lymphocytes % 43.1 % (10-50); Mean Corpuscular HGB Conc 32.9 g/dL (31.8-35.4); Mean Corpuscular Hemoglobin 31.2 pg (27.0-31.2); Mean Corpuscular Volume 94.6 fl (81-99); Mean Platelet Volume 6.9 fl (7.4-10.4); Monocytes # 0.5 K/mm3 (0.1-1.0); Monocytes % 4.6 % (1.7-9.3); Neutrophils # 5.3 K/mm3 (1.8-7.8); Neutrophils % 48.3 % (37.0-80.0); Platelet Count 355 K/mm3 (142-424); Potassium 3.7 mmoL/L (3.5-5.1); Red Blood Count 4.32 M/mm3 (4.20-5.40); Sodium 140 mmol/L (136-145); Total Protein,Serum 8.9 g/dl (6.3-8.2); White Blood Count 10.9 K/mm3 (4.8-10.8)
--- NOTE | 2019-11-07 03:39 | PC.NURSE ---
radiology present to take patient to ct
--- NOTE | 2019-11-07 04:02 | PC.NURSE ---
return to room from rad
[2019-11-07 04:04] LABS: Coronavirus 19 IgG Antibody Negative (Negative); Coronavirus 19 IgM Antibody Negative (Negative)
[2019-11-07 04:11] VITALS: BP 201/111; PULSE 89; RESP 16; O2SAT 97
--- NOTE | 2019-11-07 04:33 | HMH.EDNVD ---
ED Disposition Clinical Impression: Flank pain, acute Obesity Qualifiers: Obesity type: due to excess calories Obesity classification: adult class 3 (BMI >= 40) Serious obesity comorbidity presence: with serious comorbidity Body mass index: BMI 45.0-49.9 Qualified Code(s): E66.01 - Morbid (severe) obesity due to excess calories; Z68.42 - Body mass index (BMI) 45.0-49.9, adult Hypertension Qualifiers: Hypertension type: essential hypertension Qualified Code(s): I10 - Essential (primary) hypertension Disposition: Home, Self-Care Condition on Discharge: Good Instructions: DI for Acute Abdomen Additional Instructions: see pcp for bp and dr chin for flank pain and recurrent uti Referrals: Mahesh Horton MD [Primary Care Provider] - Jose Chin MD [Staff Physician] - - Critical Care Critical Care Time: No Attestation: On 11/07/19, the high probability of a clinically significant, sudden or life threatening deterioration of the following system(s) required my full and direct attention, intervention and personal management. The time I documented below is in addition to time spent performing reported procedures but includes the following listed in this critical care notation. Medical Decision Making - Medical Records Medical records reviewed: Yes: I reviewed the patient's medical records. - Mrak Inquiry Pt receiving controlled substance: No Vital Signs: 11/07/19 02:50 11/07/19 04:11 11/07/19 04:47 Temperature 97.8 F Temperature Source Oral Pulse Rate [Right Brachial] 75 89 79 Respiratory Rate 16 16 16 Blood Pressure [Right Arm] 178/86 H 201/111 H 165/105 H Blood Pressure Mean [Right Arm] 116 141 125 Blood Pressure Source [Right Arm] Automatic Cuff Blood Pressure Position [Right Arm] Sitting Sitting Sitting 02 Sat by Pulse Oximetry 98 97 98 Oxygen Delivery Method Room Air Room Air - Lab Data Lab results reviewed: Yes: I reviewed the patient's lab results. Lab Results 11/07/19 02:48: Urine Color Yellow, Urine Appearance Clear, Urine pH 6.0, Ur Specific [place] 1.025, Urine Protein Negative, Urine Glucose (UA) Negative, Urine Ketones Negative, Urine Blood Negative, Urine Nitrate Negative, Urine Bilirubin Negative, Urine Urobilinogen 0.2, Ur Leukocyte Esterase Negative, Urine WBC 3-5, Ur Squamous Epith Cells 5-10, Amorphous Sediment Trace, Urine Mucus 1+ 11/07/19 02:48: Urine HCG, Qual Negative 11/07/19 02:54: Sodium 140, Potassium 3.7, Chloride 102, Carbon Dioxide 30, Anion Gap 11.7, BUN 14, Creatinine 0.90, Estimated Creat Clear 76, Estimated GFR 69, Est GFR ( Amer) 83, Glucose 103 H, Calcium 10.0, Total Bilirubin 0.6, AST 65 H, ALT 68, Alkaline Phosphatase 130 H, Total Protein 8.9 H, Albumin 4.9, Globulin 4.0 H, Albumin/Globulin Ratio 1.2, Amylase 108, Lipase 252 11/07/19 02:54: WBC 10.9 H, RBC 4.32, Hgb 13.5, Hct 40.9, MCV 94.6, MCH 31.2, MCHC 32.9, RDW 13.0, Plt Count 355, MPV 6.9 L, Neut % (Auto) 48.3, Lymph % (Auto) 43.1, [place] % (Auto) 4.6, Eos % (Auto) 3.5, Baso % (Auto) 0.5, Neut # (Auto) 5.3, Lymph # (Auto) 4.7 H, [place] # (Auto) 0.5, Eos # (Auto) 0.4, Baso # (Auto) 0.1 11/07/19 02:54: SARS-CoV-2 IgG Ab (Rapid) Negative, SARS-CoV-2 IgM Ab (Rapid) Negative Result diagrams: 11/07/19 02:54 11/07/19 02:54 Orders (Tests/Meds): ED MEDICATIONS Generic Name Dose Route Start Last Admin Trade Name Freq PRN Reason Stop Dose Admin Sodium Chloride 1,000 mls @ 999 mls/hr 11/07/19 03:15 11/07/19 03:20 Sod Chlor 0.9% 1000ml Bag IV 11/07/19 04:15 999 mls/hr .Q1H1M MODESTO Administration Discontinued Medications Generic Name Dose Route Start Last Admin Trade Name Freq PRN Reason Stop Dose Admin Hydromorphone HCl 1 mg 11/07/19 04:54 Dilaudid 2mg/Ml Syringe IV 11/07/19 04:55 ONCE ONE Ioversol 75 ml 11/07/19 04:08 11/07/19 04:09 Rad-Optiray 350 100ml Vial IV 11/07/19 04:09 75 ml ONCE ONE Administration Protocol Ketorolac Tromethamine 30 mg
[2019-11-07 04:47] VITALS: BP 165/105; PULSE 79; RESP 16; O2SAT 98
[2019-11-07 05:18] VITALS: BP 183/123; PULSE 67; RESP 16; TEMP 36.6; O2SAT 96
== END 2019-11-07 05:22 | disposition home or self-care (01) ==
PROVIDERS: Emergency Provider Emergency Medicine; PCP Emergency Medicine
DX: R10.31 Right lower quadrant pain (principal); E66.01 Morbid (severe) obesity due to excess calories; Z68.42 Body mass index [BMI] 45.0-49.9, adult; E78.5 Hyperlipidemia, unspecified; I10 Essential (primary) hypertension; F41.8 Other specified anxiety disorders; Z87.442 Personal history of urinary calculi; Z90.49 Acquired absence of other specified parts of digestive tract; Z90.79 Acquired absence of other genital organ(s)
CPT/HCPCS: 74177; 80053; 81001; 81025; 82150; 83690; 85025; 86328; 96365; 96375; 99283; J2405; Q9967

== ENCOUNTER 2019-11-20 14:04 | Emergency (ER) | payer OTHER, SELFPAY ==
[2019-11-20 14:34] VITALS: BP 162/90; PULSE 90; RESP 20; TEMP 36.8; O2SAT 98; BMI 43.5
--- NOTE | 2019-11-20 14:38 | HMH.EDUTC ---
[facility] [place] [facility] [place] Clinical Impression: Edema Qualifiers: Edema type: unspecified Qualified Code(s): R60.9 - Edema, unspecified Disposition: Home, Self-Care Condition on Discharge: Good Instructions: DI for Dependent Edema Additional Instructions: Follow up with your primary care provider. Referrals: Blaine Hernandez APRN [Primary Care Provider] - Time of Disposition: 15:28 Medical Decision Making - Medical Records Medical records reviewed: No: I reviewed the patient's medical records. - Mark Inquiry Pt receiving controlled substance: No Vital Signs: 11/20/19 14:34 11/20/19 15:35 Temperature 98.2 F 98.2 F Temperature Source Oral Oral Pulse Rate 90 Pulse Rate [Right Brachial] 90 Respiratory Rate 20 20 Blood Pressure 162/90 H Blood Pressure [Right Arm] 162/90 H Blood Pressure Mean [Right Arm] 114 Blood Pressure Source Automatic Cuff Blood Pressure Source [Right Arm] Automatic Cuff Blood Pressure Position Supine Blood Pressure Position [Right Arm] Sitting 02 Sat by Pulse Oximetry 98 Oxygen Delivery Method Room Air Room Air - Lab Data Lab results reviewed: Yes: I reviewed the patient's lab results. Lab Results 11/20/19 15:00: WBC 7.8, RBC 4.15 L, Hgb 13.0, Hct 38.5, MCV 92.7, MCH 31.4 H, MCHC 33.9, RDW 12.7, Plt Count 316, MPV 6.9 L, Neut % (Auto) 55.5, Lymph % (Auto) 34.1, [place] % (Auto) 5.0, Eos % (Auto) 5.1, Baso % (Auto) 0.4, Neut # (Auto) 4.3, Lymph # (Auto) 2.6, [place] # (Auto) 0.4, Eos # (Auto) 0.4, Baso # (Auto) 0.0 11/20/19 15:00: Sodium 140, Potassium 3.9, Chloride 106, Carbon Dioxide 25, Anion Gap 12.9, BUN 14, Creatinine 0.60, Estimated Creat Clear 119, Estimated GFR 110, Est GFR ( Amer) 133, Glucose 88, Calcium 9.2, Total Bilirubin 0.8, AST 70 H, ALT 75, Alkaline Phosphatase 112, Total Protein 7.4, Albumin 4.3, Globulin 3.1, Albumin/Globulin Ratio 1.4, TSH 0.80 Result diagrams: 11/20/19 15:00 11/20/19 15:00 [facility] [place] [facility] [place]PI - General Stated complaint: Excessive thirst, swollen feet Time Seen by Provider: 11/20/19 14:38 Mode of Arrival: Ambulatory Source of Information: Patient Limitations: No Limitations Description of Symptoms (Recalled from Triage Doc. by RN): PATIENT C/O SWELLING OF BILATERAL FEET WITH TINGLING AND EXCESSIVE THIRST X 1 DAY HEENT Symptoms (Recalled from RN notes): No Resp Symptoms (Recalled from RN notes): No Skin Symptoms (Recalled from RN notes): No MS Symptoms (Recalled from RN notes): Yes Functional Status (Recalled from RN notes): WNL - History of Present Illness Provider Complaint: She c/o fatigue, bilateral feet swelling and excessive thirst for the past 4 days approx. - Related Data Home Medications Medication Instructions Recorded Confirmed Losartan Potassium [Cozaar 25mg 25 mg PO DAILY 10/22/19 11/18/19 Tablets] carvedilol 12.5 mg tablet 12.5 mg PO BID tab 11/18/19 11/18/19 gabapentin 600 mg tablet 600 mg PO TID tab 11/18/19 11/18/19 hydrochlorothiazide 12.5 mg capsule 12.5 mg PO DAILY cap 11/18/19 11/18/19 Previous Rx's Medication Instructions Recorded Ondansetron [Zofran 4mg ODT] 4 mg PO Q8HP PRN #10 tab.rapdis 10/22/19 olanzapine 5 mg tablet 5 mg PO QHS #30 tab 11/08/19 vortioxetine 20 mg tablet 20 mg PO DAILY #30 tab 11/08/19 cephalexin 500 mg capsule 500 mg PO Q12H 10 Days #20 cap 11/18/19 prednisone 20 mg tablet 20 mg PO BID #10 tab 11/18/19 Allergies Allergy/AdvReac Type Severity Reaction Status Date / Time amlodipine Allergy Intermediate swelling Verified 11/18/19 10:36 legs and feet Penicillins [PENICILLINS] Allergy Intermediate I-RASH Verified 11/18/19 10:36 metoclopramide [From REGLAN] Allergy Mild NA-HALLUCIN Verified 11/18/19 10:36 ATIONS amoxicillin Allergy Verified 11/18/19 10:36 ibuprofen Allergy Nausea Verified 11/18/19 10:36 - Worker's Comp Is this a Worker's Comp case?: No H History - Hepatitis A Screen Drug use history?: No High risk sexual behaviors?: No
[2019-11-20 15:09] LABS: Basophils % 0.4 % (0.1-2.0); Eosinophils # 0.4 K/mm3 (0.0-0.4); Eosinophils % 5.1 % (0.1-12.0); Hematocrit 38.5 % (37.0-47.0); Lymphocytes # 2.6 K/mm3 (0.7-4.5); Lymphocytes % 34.1 % (10-50); Mean Corpuscular HGB Conc 33.9 g/dL (31.8-35.4); Mean Corpuscular Hemoglobin 31.4 pg (27.0-31.2); Mean Corpuscular Volume 92.7 fl (81-99); Mean Platelet Volume 6.9 fl (7.4-10.4); Monocytes # 0.4 K/mm3 (0.1-1.0); Neutrophils # 4.3 K/mm3 (1.8-7.8); Neutrophils % 55.5 % (37.0-80.0); Platelet Count 316 K/mm3 (142-424); Red Blood Count 4.15 M/mm3 (4.20-5.40); Red Cell Distribution Width 12.7 % (11.5-17.5); White Blood Count 7.8 K/mm3 (4.8-10.8)
[2019-11-20 15:15] LABS: Chloride 106 mmol/L (98-107); Potassium 3.9 mmoL/L (3.5-5.1); Sodium 140 mmol/L (136-145)
[2019-11-20 15:17] LABS: Blood Urea Nitrogen 14 mg/dl (7-17)
[2019-11-20 15:18] LABS: Alanine Aminotransferase 75 U/L (12-78); Albumin Level 4.3 g/dl (3.5-5.0); Albumin/Globulin Ratio 1.4 (1.1-1.8); Alkaline Phosphatase 112 U/L (38-126); Anion Gap 12.9 mEq/L (5-15); Aspartate Amino Transferase 70 U/L (14-36); Bilirubin,Total 0.8 mg/dl (0.2-1.3); Calcium 9.2 mg/dl (8.4-10.2); Carbon Dioxide 25 mmol/L (22.0-30.0); Creatinine Clearance Estimated 119 mL/min (50-200); Estimated Glomerular Filt Rate 110 ml/min (>60); GFR (African American) 133 ML/MIN (>60); Globulin 3.1 g/dL (1.3-3.2); Glucose 88 mg/dl (74-100); Total Protein,Serum 7.4 g/dl (6.3-8.2)
[2019-11-20 15:35] VITALS: BP 162/90; PULSE 90; RESP 20; TEMP 36.8; O2SAT 98
[2019-11-20 16:59] LABS: Apearance,Urine Clear (Clear); Bilirubin,Urine Negative (Negative); Blood, Urine Negative (Negative); Color,Urine Yellow (Yellow); Glucose,Urine (UA) Negative (Negative); Ketones,Urine Negative (Negative); Protein,Urine Negative (Negative); UTC Leukocyte Esterase,Urine Negative (Negative); UTC Nitrate,Urine Negative (Negative); Urobilinogen,Urine 0.2 EU/dl (0.2)
== END 2019-11-20 15:39 | disposition home or self-care (01) ==
PROVIDERS: Emergency Provider Nurse Practitioner Family; PCP Nurse Practitioner Family
DX: R60.9 Edema, unspecified (principal); R20.2 Paresthesia of skin; I25.10 Atherosclerotic heart disease of native coronary artery without angina pectoris; I10 Essential (primary) hypertension; E78.5 Hyperlipidemia, unspecified; F41.8 Other specified anxiety disorders; Z87.442 Personal history of urinary calculi; Z79.899 Other long term (current) drug therapy
CPT/HCPCS: 80053; 81003; 84443; 85025; 99202

== ENCOUNTER → 2019-12-16 08:43 | Outpatient (CLI) | payer OTHER, SELFPAY ==
--- NOTE | 2019-12-16 08:43 | MR_ITS ---
PROCEDURE: MR LUMBAR SPINE WO CON CLINICAL INDICATION: back pain LBP. INTERMITTENT BILATERAL LEG PAIN, NUMBNESS, AND TINGLING. SYMPTOMS XYRS. PRIOR CT 01-03-19 COMPARISON: CT CT LUMBAR SPINE WO CON from 01/03/2019 TECHNIQUE: Standard multiplanar multiecho sequences are performed without contrast. 3-D MIP and myelographic images are also rendered and reviewed FINDINGS: There is normal alignment. The spinal cord ends at the L1 level. T12-L1: Mild degenerative disc disease. There is a small right paracentral/foraminal disc herniation that is causing right lateral recess and foraminal narrowing and is impinging upon the right and anterior aspect of the lower cord/cauda equina L1-L2: Unremarkable. L2-L3: Unremarkable. Hemangioma is present involving the L2 vertebral body at 2.6 cm L3-L4: Mild facet and ligamentum hypertrophy. L4-5: Degenerate disc disease with bulging disc along facet ligamentum hypertrophy and minimal broad-based central disc protrusion. There is borderline narrowing of the canal at 12 mm. Lateral recess and foraminal narrowing noted slightly greater on the left. L5-S1: Mild bulging disc with minimal left paracentral disc protrusion with facet and ligamentum hypertrophy. There is bilateral lateral recess narrowing and foraminal narrowing greater on the left with minimal impingement upon the left S1 nerve root IMPRESSION: 1. T12-L1: Mild degenerative disc disease. There is a small right paracentral/foraminal disc herniation that is causing right lateral recess and foraminal narrowing and is impinging upon the right and anterior aspect of the lower cord/cauda equina 2. L4-5: Degenerate disc disease with bulging disc along facet ligamentum hypertrophy and minimal broad-based central disc protrusion. There is borderline narrowing of the canal at 12 mm. Lateral recess and foraminal narrowing noted slightly greater on the left. 3. L5-S1: Mild bulging disc with minimal left paracentral disc protrusion with facet and ligamentum hypertrophy. There is bilateral lateral recess narrowing and foraminal narrowing greater on the left with minimal impingement upon the left S1 nerve root Dictated by: Taras Rosa MD 12/17/2019 09:04 Taras Rosa MD in [place] 12/17/2019 09:04
== END ==
PROVIDERS: PCP Emergency Medicine; Visit Provider Nurse Practitioner Family
DX: M54.5 Low back pain (principal)
CPT/HCPCS: 72148; 76376

== ENCOUNTER 2019-12-21 21:35 | Emergency (ER) | payer OTHER, SELFPAY ==
[2019-12-21 21:35] VITALS: BP 179/99; PULSE 87; RESP 16; TEMP 36.9; O2SAT 98; BMI 45.0
[2019-12-21 22:03] VITALS: BP 168/107; PULSE 96; RESP 15; O2SAT 96
--- NOTE | 2019-12-21 23:32 | HMH.EDGENADL ---
ED Disposition Clinical Impression: Radiculopathy due to lumbar intervertebral disc disorder Disposition: Home, Self-Care Condition on Discharge: Good Instructions: DI for Low Back Pain Additional Instructions: call pcp in am for follow up Referrals: Mahesh Horton MD [Primary Care Provider] - - Critical Care Critical Care Time: No Attestation: On 12/21/19, the high probability of a clinically significant, sudden or life threatening deterioration of the following system(s) required my full and direct attention, intervention and personal management. The time I documented below is in addition to time spent performing reported procedures but includes the following listed in this critical care notation. Medical Decision Making - Medical Records Medical records reviewed: Yes: I reviewed the patient's medical records. - Mark Inquiry Pt receiving controlled substance: No Vital Signs: 12/21/19 21:35 12/21/19 22:03 12/21/19 23:38 Temperature 98.5 F Temperature Source Oral Pulse Rate [Left Radial] 87 96 H 78 Respiratory Rate 16 15 16 Blood Pressure [Right Arm] 179/99 H 168/107 H 152/101 H Blood Pressure Mean [Right Arm] 125 127 118 Blood Pressure Source [Right Arm] Automatic Cuff Automatic Cuff Blood Pressure Position [Right Arm] Sitting 02 Sat by Pulse Oximetry 98 96 97 Oxygen Delivery Method Room Air Room Air Room Air Orders (Tests/Meds): ED MEDICATIONS Discontinued Medications Generic Name Dose Route Start Last Admin Trade Name Freq PRN Reason Stop Dose Admin Acetaminophen/Codeine Phosphate 1 agustina 12/21/19 23:39 Acetaminophen W/Codeine #3 Take Home Pack (6) PO 12/21/19 23:40 ONCE ONE Butorphanol Tartrate 1 mg 12/21/19 23:39 Stadol 1mg/1ml Vial IM 12/21/19 23:40 ONCE ONE Dexamethasone Sodium Phosphate 8 mg 12/21/19 23:39 Decadron 4mg/Ml 1ml Vial IM 12/21/19 23:40 ONCE ONE Promethazine HCl 25 mg 12/21/19 23:39 Phenergan 25mg/Ml 1ml Vial IM 12/21/19 23:40 ONCE ONE General Adult HPI - General Chief complaint: PAIN Stated complaint: Lower back pain Time Seen by Provider: 12/21/19 22:00 Mode of Arrival: Ambulatory Source of Information: Patient, Medical Record Limitations: No Limitations Description of Symptoms (Recalled from ER Triage Doc. 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 pt stated she had chronic lower back pain and her medicine at home and muscle relaxer isnt giving her relief tonight. - History of Present Illness HPI narrative: acute excerbation of l/s disease after lifting and had popping with inc pain - no fever or cauda equina sx- had recent mri and has appt with dr weber - on neurotin Onset (ago): hour(s) Location: back Radiation: extremity Severity: severe Quality: sharp Associated symptoms: denies other symptoms Treatments prior to arrival: none - Related Data Home Medications Medication Instructions Recorded Confirmed Losartan Potassium [Cozaar 25mg 25 mg PO DAILY 10/22/19 12/20/19 Tablets] hydrochlorothiazide 12.5 mg capsule 12.5 mg PO DAILY cap 11/18/19 12/20/19 Previous Rx's Medication Instructions Recorded tizanidine 4 mg capsule 4 mg PO BID PRN #60 cap 11/25/19 carvedilol 12.5 mg tablet 12.5 mg PO BID #60 tab 12/07/19 olanzapine 10 mg tablet 10 mg PO QHS #30 tab 12/08/19 vortioxetine 20 mg tablet 20 mg PO DAILY #30 tab 12/08/19 gabapentin 600 mg tablet 600 mg PO TID #90 tab 12/20/19 Allergies Allergy/AdvReac Type Severity Reaction Status Date / Time amlodipine Allergy Intermediate swelling Verified 12/20/19 14:13 legs and feet Penicillins [PENICILLINS] Allergy Intermediate I-RASH Verified 12/20/19 14:13 metoclopramide [From REGLAN] Allergy Mild NA-HALLUCIN Verified 12/20/19 14:13 ATIONS amoxicillin Allergy Verified 12/20/19 14:13 ibuprofen Allergy Nausea Verified 12/20/19 14:13 [facility] Histo
[2019-12-21 23:38] VITALS: BP 152/101; PULSE 78; RESP 16; O2SAT 97
[2019-12-22 00:05] VITALS: BP 162/98; PULSE 76; RESP 14; TEMP 36.9; O2SAT 98
== END 2019-12-22 00:08 | disposition home or self-care (01) ==
PROVIDERS: Emergency Provider Emergency Medicine; PCP Emergency Medicine
DX: M51.16 Intervertebral disc disorders with radiculopathy, lumbar region (principal); I25.10 Atherosclerotic heart disease of native coronary artery without angina pectoris; F41.8 Other specified anxiety disorders; E78.5 Hyperlipidemia, unspecified; I10 Essential (primary) hypertension; Z87.442 Personal history of urinary calculi; Z88.0 Allergy status to penicillin; Z90.49 Acquired absence of other specified parts of digestive tract; Z90.710 Acquired absence of both cervix and uterus
CPT/HCPCS: 96372; 99282; J0595

== ENCOUNTER 2020-01-26 15:32 | Emergency (ER) | payer OTHER, SELFPAY ==
[2020-01-26 15:47] VITALS: BP 119/77; BP 133/77; PULSE 103; PULSE 84; RESP 16; TEMP 37.2; O2SAT 98; BMI 44.6
--- NOTE | 2020-01-26 15:55 | CT_ITS ---
PROCEDURE: CT HEAD/BRAIN WO CON CLINICAL INDICATION: DIZZINESS COMPARISON: CT CT HEAD/BRAIN WO CON from 12/29/2018 TECHNIQUE: Axial images obtained. All CT scans at the facility use one or more dose reduction, viz: automated exposure control, ma/kV adjustment per patient size (including targeted exams where dose is matched to indication, i.e. head), or iterative reconstruction technique. FINDINGS: No midline shift, mass effect, intracranial hemorrhage, hydrocephalus, or extra-axial fluid collection is evident. The calvarium has an unremarkable appearance. No mastoid effusion. No sinus air-fluid level. IMPRESSION: No acute intracranial finding Dictated by: Taras Rosa MD 01/26/2020 16:54 Taras Rosa MD in [place] 01/26/2020 16:54
--- NOTE | 2020-01-26 15:56 | XR_ITS ---
PROCEDURE: XR CHEST 2V CLINICAL HISTORY: DIZZINESS Headache and dizziness COMPARISON: CR XR CHEST 2V from 12/29/2018 CR XR CHEST 2V from 01/03/2019 CR XR CHEST 2V from 08/05/2019 FINDINGS: The cardiomediastinal silhouette and pulmonary vascularity are within normal limits. The lungs are clear without infiltrates, suspicious nodules, or pleural effusions. No acute bony abnormalities. IMPRESSION: No acute findings. Dictated by: Taras Rosa MD 01/26/2020 16:39 Taras Rosa MD in [place] 01/26/2020 16:39
[2020-01-26 16:06] LABS: Microscopic, Urine URINE MICROSCOPIC (MICROSCOPIC)
[2020-01-26 16:08] LABS: Basophils % 0.3 % (0.1-2.0); Eosinophils # 0.4 K/mm3 (0.0-0.4); Eosinophils % 3.3 % (0.1-12.0); Hematocrit 41.1 % (37.0-47.0); Hemoglobin 13.5 g/dL (12.2-16.2); Lymphocytes # 3.5 K/mm3 (0.7-4.5); Lymphocytes % 30.2 % (10-50); Mean Corpuscular HGB Conc 32.9 g/dL (31.8-35.4); Mean Corpuscular Hemoglobin 31.1 pg (27.0-31.2); Mean Corpuscular Volume 94.4 fl (81-99); Mean Platelet Volume 6.5 fl (7.4-10.4); Monocytes # 0.5 K/mm3 (0.1-1.0); Monocytes % 4.6 % (1.7-9.3); Neutrophils # 7.2 K/mm3 (1.8-7.8); Neutrophils % 61.6 % (37.0-80.0); Platelet Count 370 K/mm3 (142-424); Red Blood Count 4.36 M/mm3 (4.20-5.40); Red Cell Distribution Width 12.3 % (11.5-17.5); White Blood Count 11.6 K/mm3 (4.8-10.8)
[2020-01-26 16:08] LABS: Appearance,Urine CLEAR (Clear); Bilirubin,Urine Negative (Negative); Blood, Urine Negative (Negative); Color,Urine YELLOW (Yellow); Glucose,Urine (UA) Negative (Negative); Ketones,Urine TRACE (Negative); Leukocyte Esterase,Urine TRACE (Negative); Nitrate,Urine Negative (Negative); PH,Urine 6.5 (5.0-8.5); Protein,Urine Negative (Negative); Urobilinogen,Urine 0.2 EU/dl (0.2)
[2020-01-26 16:12] LABS: Chloride 104 mmol/L (98-107); Potassium 4.2 mmoL/L (3.5-5.1); Sodium 143 mmol/L (136-145)
[2020-01-26 16:15] LABS: Alanine Aminotransferase 106 U/L (12-78); Albumin Level 4.6 g/dl (3.5-5.0); Albumin/Globulin Ratio 1.2 (1.1-1.8); Alkaline Phosphatase 114 U/L (38-126); Anion Gap 15.2 mEq/L (5-15); Aspartate Amino Transferase 88 U/L (14-36); Bilirubin,Total 0.6 mg/dl (0.2-1.3); Blood Urea Nitrogen 13 mg/dl (7-17); Carbon Dioxide 28 mmol/L (22.0-30.0); Creatinine Clearance Estimated 86 mL/min (50-200); Estimated Glomerular Filt Rate 79 ml/min (>60); GFR (African American) 95 ML/MIN (>60); Globulin 3.8 g/dL (1.3-3.2); Total Protein,Serum 8.4 g/dl (6.3-8.2)
[2020-01-26 16:16] LABS: Calcium 10.1 mg/dl (8.4-10.2); Glucose 112 mg/dl (74-100)
[2020-01-26 16:17] LABS: Bacteria,Urine 2+ /lpf; Squamous Epithelial Cell,Urine 20-50 #/hpf (0-5)
[2020-01-26 16:28] LABS: Troponin I < 0.01 ng/ml (0.00-0.034)
--- NOTE | 2020-01-26 16:48 | ECG_ITS ---
APPROVED REPORT Exam: Resting ECG HR:77 bpm ECG Measurements Heart Rate 77 AXES IN 152 P 44 QRSd 88 QRS 3 QT 408 T 9 QTc 461 <Conclusion> Normal sinus rhythm Minimal voltage criteria for LVH, may be normal variant Prolonged QT Abnormal ECG Electronically signed by : David Garcia, 01/28/2020 06:26:56
--- NOTE | 2020-01-26 17:05 | HMH.EDDIZZ ---
ED Disposition Clinical Impression: Adverse reaction to drug, Orthostatic hypotension, Dizziness, UTI (urinary tract infection) Disposition: Home, Self-Care Condition on Discharge: Good Instructions: Vertigo, Fainting Prescriptions: Nitrofurantoin Monohyd/M-Cryst [Nitrofurantoin Carter-Mcr 100 mg] 100 mg PO BID 10 Days #20 cap Transmission Status: Pending to [facility] Referrals: Blaine Hernandez APRN [Primary Care Provider] - - Critical Care Critical Care Time: No Attestation: On 01/26/20, the high probability of a clinically significant, sudden or life threatening deterioration of the following system(s) required my full and direct attention, intervention and personal management. The time I documented below is in addition to time spent performing reported procedures but includes the following listed in this critical care notation. Medical Decision Making - Medical Records Medical records reviewed: Yes: I reviewed the patient's medical records. - Mark Inquiry Pt receiving controlled substance: No Vital Signs: 01/26/20 15:47 Temperature 99 F Temperature Source Oral Pulse Rate [Brachial] 103 H Pulse Rate [Radial] 84 Respiratory Rate 16 Blood Pressure [Right Arm] 133/77 Blood Pressure [Right Radial Artery] 119/77 Blood Pressure Mean [Right Arm] 95 Blood Pressure Mean [Right Radial Artery] 91 Blood Pressure Position [Right Arm] Supine Blood Pressure Position [Right Radial Artery] Standing 02 Sat by Pulse Oximetry 98 Oxygen Delivery Method Room Air - Lab Data Lab results reviewed: Yes: I reviewed the patient's lab results. Lab Results 01/26/20 15:45: Urine Color Yellow, Urine Appearance Clear, Urine pH 6.5, Ur Specific [place] 1.020, Urine Protein Negative, Urine Glucose (UA) Negative, Urine Ketones Trace, Urine Blood Negative, Urine Nitrate Negative, Urine Bilirubin Negative, Urine Urobilinogen 0.2, Ur Leukocyte Esterase Trace, Urine RBC 3-5, Urine WBC 10-20, Ur Squamous Epith Cells 20-50, Urine Bacteria 2+ 01/26/20 15:55: WBC 11.6 H, RBC 4.36, Hgb 13.5, Hct 41.1, MCV 94.4, MCH 31.1, MCHC 32.9, RDW 12.3, Plt Count 370, MPV 6.5 L, Neut % (Auto) 61.6, Lymph % (Auto) 30.2, [place] % (Auto) 4.6, Eos % (Auto) 3.3, Baso % (Auto) 0.3, Neut # (Auto) 7.2, Lymph # (Auto) 3.5, [place] # (Auto) 0.5, Eos # (Auto) 0.4, Baso # (Auto) 0.0 01/26/20 15:55: Sodium 143, Potassium 4.2, Chloride 104, Carbon Dioxide 28, Anion Gap 15.2 H, BUN 13, Creatinine 0.80, Estimated Creat Clear 86, Estimated GFR 79, Est GFR ( Amer) 95, Glucose 112 H, Calcium 10.1, Total Bilirubin 0.6, AST 88 H, ALT 106 H, Alkaline Phosphatase 114, Troponin I < 0.01, Total Protein 8.4 H, Albumin 4.6, Globulin 3.8 H, Albumin/Globulin Ratio 1.2 Result diagrams: 01/26/20 15:55 01/26/20 15:55 Orders (Tests/Meds): ED MEDICATIONS Generic Name Dose Route Start Last Admin Trade Name Freq PRN Reason Stop Dose Admin Sodium Chloride 1,000 mls @ 999 mls/hr 01/26/20 16:45 Sod Chlor 0.9% 1000ml Bag IV 01/26/20 17:45 .Q1H1M MO[place] Discontinued Medications Generic Name Dose Route Start Last Admin Trade Name Freq PRN Reason Stop Dose Admin Sodium Chloride 1,000 mls @ 999 mls/hr 01/26/20 16:00 Sod Chlor 0.9% 1000ml Bag IV 01/26/20 17:00 .Q1H1M [place] Sodium Chloride 1,000 mls @ 999 mls/hr 01/26/20 16:45 Sod Chlor 0.9% 1000ml Bag IV 01/26/20 17:45 .Q1H1M [place] ORDERS Category Date Time Status Troponin I Q3H Lab 01/26/20 19:00 Ordered Troponin I Q3H Lab 01/26/20 22:00 Ordered Urine Culture Stat Micro 01/26/20 15:45 Received - CT Data CT Scan: Head Time Received: 19:[address] Reviewed: Yes: I have reviewed the patient's CT results Preliminary Findings: Normal/NAD Dizzy HPI - General Chief Complaint: Dizziness Stated Complaint: weak, dizzy, balance off Time Seen by Provider: 01/26/20 17:05 Mode of Arrival: Ambulatory Limitations: No Limitations Description of Symptoms (Recalled from ER Triage
[2020-01-26 17:16] VITALS: BP 127/75; PULSE 79; RESP 17; TEMP 37.2; O2SAT 99
== END 2020-01-26 17:17 | disposition home or self-care (01) ==
PROVIDERS: Emergency Provider Family Medicine; PCP Nurse Practitioner Family
DX: I95.1 Orthostatic hypotension (principal); T50.905A Adverse effect of unspecified drugs, medicaments and biological substances, initial encounter; N30.00 Acute cystitis without hematuria; F41.8 Other specified anxiety disorders; E78.5 Hyperlipidemia, unspecified; I10 Essential (primary) hypertension; Z88.0 Allergy status to penicillin; Z88.8 Allergy status to other drugs, medicaments and biological substances; Z90.49 Acquired absence of other specified parts of digestive tract; Z90.710 Acquired absence of both cervix and uterus
CPT/HCPCS: 70450; 71046; 80053; 81001; 84484; 85025; 87086; 93005; 96365; 96366; 99283

== ENCOUNTER 2020-03-07 14:31 | Emergency (ER) | payer OTHER, SELFPAY ==
[2020-03-07 14:46] VITALS: BP 141/81; PULSE 77; RESP 19; TEMP 36.8; O2SAT 95; BMI 44.4
--- NOTE | 2020-03-07 14:53 | HMH.EDUTC ---
[facility] [place] Impression: UTI (urinary tract infection) Qualifiers: Urinary tract infection type: site unspecified Hematuria presence: without hematuria Qualified Code(s): N39.0 - Urinary tract infection, site not specified Disposition: Home, Self-Care Condition on Discharge: Good Instructions: Urinary Tract Infection, DI for Urinary Tract Infection (UTI), Ciprofloxacin Additional Instructions: *Increase fluids. Water not Soda or Tea *Start antibiotic immediately and be sure to take as ordered for the FULL length of time although you should start to see improvement over the next 48 hours *Pyridium as needed Remember this medication will turn your urine [place]. This is normal but it will stain what ever it gets on *You should not use Pyridium for more than 48 hours. If so , follow up with your primary physician to review urine culture and ensure that antibiotic is adequate for infection *Be SURE to follow up anytime for new or worsening symptoms with your family doctor. AND in 48 hours for urine culture results with your family doctor, if you do not have a doctor then you may call back to the [facility] for urine culture results and further treatment. We do recommend that you choose and establish care with a Primary Care Physician. AND follow up with them in 10-14 days to repeat UA to ensure infection is resolved and blood no longer present *Be sure to let your PCP know that we sent urine cultures from the [facility] so they can follow up to ensure that you area the on the correct antibiotic Call your doctor office and make appointment for 48 hours (2 days from today) to follow up and get the results of your urine culture and further treatment Prescriptions: Ciprofloxacin HCl [Cipro 500mg Tab] 500 mg PO BID #14 tab Transmission Status: Pending to [facility] Phenazopyridine HCl [Pyridium 200mg Tablet] 200 pow PO TID #6 tab Transmission Status: Pending to [facility] Referrals: Blaine Hernandez APRN [Primary Care Provider] - As needed Time of Disposition: 15:11 Medical Decision Making - Mark Inquiry Pt receiving controlled substance: No Mark was queried for this patient: No Vital Signs: 03/07/20 14:46 Temperature 98.2 F Temperature Source Oral Pulse Rate [Radial] 77 Respiratory Rate 19 Blood Pressure [Right Arm] 141/81 H Blood Pressure Mean [Right Arm] 101 Blood Pressure Source [Right Arm] Automatic Cuff Blood Pressure Position [Right Arm] Sitting 02 Sat by Pulse Oximetry 95 Oxygen Delivery Method Room Air [facility] [place] - General Stated complaint: back pain, no accident Time Seen by Provider: 03/07/20 14:53 Mode of Arrival: Ambulatory Source of Information: Patient Limitations: No Limitations Description of Symptoms (Recalled from Triage Doc. by RN): right side flank pain x 1 week, trouble urinating. HEENT Symptoms (Recalled from RN notes): No Resp Symptoms (Recalled from RN notes): No Skin Symptoms (Recalled from RN notes): No MS Symptoms (Recalled from RN notes): No Functional Status (Recalled from RN notes): wnl - History of Present Illness Provider Complaint: Patient state that she has been fighting a UTI for about a month now States that for the last week symptoms have returned States that she is having some burning with urination and achy like pain in her lower back area so she came in to get checked Denies injury - Related Data Home Medications Medication Instructions Recorded Confirmed hydrochlorothiazide 12.5 mg capsule 12.5 mg PO DAILY cap 11/18/19 01/26/20 losartan 50 mg tablet 50 mg PO BID 12/23/19 01/26/20 diclofenac sodium 1 % topical gel 4 g TOPICAL QID PRN 01/18/20 01/26/20 gabapentin 800 mg tablet 800 mg PO TID 01/18/20 01/26/20 Previous Rx's Medication Instructions Recorded tizanidine 4 mg capsule 4 mg PO BID PRN #60 cap 11/25/19 carvedilol 12.5 mg tablet 12.5 mg PO BID #60 tab 12/07/19 cariprazine 1.5 mg capsule 1.5 mg PO DAILY #30 cap 12/23/19 vilazodo
[2020-03-07 15:15] VITALS: BP 141/81; PULSE 77; RESP 19; TEMP 36.8; O2SAT 95
[2020-03-07 15:27] LABS: Apearance,Urine Clear (Clear); Bilirubin,Urine Negative (Negative); Blood, Urine Negative (Negative); Color,Urine Yellow (Yellow); Glucose,Urine (UA) Negative (Negative); Ketones,Urine Negative (Negative); PH,Urine 5.5 (5.0-8.5); Protein,Urine Negative (Negative); UTC Leukocyte Esterase,Urine Negative (Negative); UTC Nitrate,Urine Positive (Negative); Urobilinogen,Urine 0.2 EU/dl (0.2)
== END 2020-03-07 15:20 | disposition home or self-care (01) ==
PROVIDERS: Emergency Provider Nurse Practitioner; PCP Nurse Practitioner Family
DX: N30.00 Acute cystitis without hematuria (principal); B96.20 Unspecified Escherichia coli [E. coli] as the cause of diseases classified elsewhere; F41.8 Other specified anxiety disorders; I10 Essential (primary) hypertension; Z87.442 Personal history of urinary calculi
CPT/HCPCS: 81003; 87086; 87088; 87186; 99201

== ENCOUNTER → 2020-06-08 17:31 | Outpatient (CLI) | payer OTHER, SELFPAY ==
[2020-06-08 17:44] LABS: Basophils # 0.1 K/mm3 (0-0.2); Basophils % 0.8 % (0.1-2.0); Eosinophils # 0.3 K/mm3 (0.0-0.4); Eosinophils % 3.9 % (0.1-12.0); Hematocrit 43.4 % (37.0-47.0); Hemoglobin 14.6 g/dL (12.2-16.2); Lymphocytes # 3.1 K/mm3 (0.7-4.5); Lymphocytes % 36.9 % (10-50); Mean Corpuscular HGB Conc 33.6 g/dL (31.8-35.4); Mean Corpuscular Hemoglobin 31.5 pg (27.0-31.2); Mean Corpuscular Volume 93.9 fl (81-99); Mean Platelet Volume 7.2 fl (7.4-10.4); Monocytes # 0.4 K/mm3 (0.1-1.0); Monocytes % 5.1 % (1.7-9.3); Neutrophils # 4.5 K/mm3 (1.8-7.8); Neutrophils % 53.3 % (37.0-80.0); Platelet Count 357 K/mm3 (142-424); Red Blood Count 4.62 M/mm3 (4.20-5.40); White Blood Count 8.4 K/mm3 (4.8-10.8)
[2020-06-08 18:06] LABS: Hemoglobin A1C 5.3 % (4.0-6.0)
[2020-06-08 18:37] LABS: Alanine Aminotransferase 64 U/L (12-78); Albumin Level 4.7 g/dl (3.5-5.0); Albumin/Globulin Ratio 1.3 (1.1-1.8); Alkaline Phosphatase 94 U/L (38-126); Anion Gap 14.3 mEq/L (5-15); Aspartate Amino Transferase 51 U/L (14-36); Bilirubin,Total 1.2 mg/dl (0.2-1.3); Blood Urea Nitrogen 19 mg/dl (7-17); Calcium 10.2 mg/dl (8.4-10.2); Carbon Dioxide 27 mmol/L (22.0-30.0); Chloride 106 mmol/L (98-107); Chol/HDL Ratio 6.9 (1-3.5); Cholesterol 290 mg/dl (140-200); Estimated Glomerular Filt Rate 68 ml/min (>60); GFR (African American) 83 ML/MIN (>60); Globulin 3.6 g/dL (1.3-3.2); Glucose 87 mg/dl (74-100); HDL Cholesterol 42 mg/dl (40-60); Potassium 4.3 mmoL/L (3.5-5.1); Sodium 143 mmol/L (136-145); Total Protein,Serum 8.3 g/dl (6.3-8.2); Triglycerides 195 mg/dl (30-150); VLDL Cholesterol 39 mg/dL (0-40)
[2020-06-08 18:55] LABS: 25-OH Vitamin D, Total 14.9 ng/mL (30-100); T4 (Thyroxine) 10.5 ug/dl (5.53-11.0)
[2020-06-08 19:08] LABS: Thyroid Stimulating Hormone 1.42 uIU/mL (0.465-4.68)
== END ==
PROVIDERS: Visit Provider Nurse Practitioner Family
DX: I10 Essential (primary) hypertension (principal); E11.9 Type 2 diabetes mellitus without complications; R53.83 Other fatigue; E66.9 Obesity, unspecified; E55.9 Vitamin D deficiency, unspecified
CPT/HCPCS: 80053; 80061; 82306; 83036; 84436; 84443; 85025

== ENCOUNTER → 2020-07-24 15:33 | Outpatient (CLI) | payer OTHER, SELFPAY ==
[2020-07-24 17:11] LABS: Alanine Aminotransferase 48 U/L (12-78); Albumin Level 4.7 g/dl (3.5-5.0); Albumin/Globulin Ratio 1.6 (1.1-1.8); Alkaline Phosphatase 79 U/L (38-126); Anion Gap 14.7 mEq/L (5-15); Aspartate Amino Transferase 39 U/L (14-36); Bilirubin,Total 0.6 mg/dl (0.2-1.3); Blood Urea Nitrogen 16 mg/dl (7-17); Calcium 10.1 mg/dl (8.4-10.2); Carbon Dioxide 25 mmol/L (22.0-30.0); Chloride 107 mmol/L (98-107); Estimated Glomerular Filt Rate 61 ml/min (>60); GFR (African American) 73 ML/MIN (>60); Glucose 79 mg/dl (74-100); Potassium 4.7 mmoL/L (3.5-5.1); Sodium 142 mmol/L (136-145); Total Protein,Serum 7.7 g/dl (6.3-8.2)
== END ==
PROVIDERS: Visit Provider Emergency Medicine
DX: R42 Dizziness and giddiness (principal)
CPT/HCPCS: 36415; 80053

== ENCOUNTER → 2020-08-27 13:26 | Outpatient (CLI) | payer OTHER, SELFPAY ==
--- NOTE | 2020-08-27 13:33 | XR_ITS ---
PROCEDURE: XR ANKLE WT BEARING RT MIN 3V CLINICAL INDICATION: ankle pain COMPARISON: CR ANKL3 ANKLE-LT-3 VIEWS from 11/03/2013 CR ANKR3 ANKLE-RT-3 VIEWS from 01/15/2015 CR ANKCMRT XR ankle RT min 3V from 09/10/2018 CR ANKCMLT XR ankle LT min 3V from 09/10/2018 FINDINGS: No acute fracture or dislocation. Mild osteoarthritic changes are present with slight decrease joint space and hypertrophic changes of the distal tibia. A well-circumscribed 4 mm calcific density is present at the tip of the medial malleolus similar to the previous exam consistent with an old fracture or ununited ossification center. IMPRESSION: Degenerative changes, no acute finding Dictated by: Taras Rosa MD 08/27/2020 14:22 Taras Rosa MD in [place] 08/27/2020 14:22
--- NOTE | 2020-08-27 13:33 | XR_ITS ---
PROCEDURE: XR FOOT WT BEARING RT 3V CLINICAL INDICATION: foot pain COMPARISON: CR FTR3 FOOT-RT-3 VIEWS from 08/19/2013 CR XR ANKLE WT BEARING RT MIN 3V from 08/27/2020 FINDINGS: No fracture or dislocation. No lytic or blastic change. There is normal mineralization. A calcific density is present along the neck of the talus anteriorly consistent with a bony spur.. There are mild osteoarthritic changes of the ankle. The midfoot and forefoot have an unremarkable appearance. Small loose body is present posterior to the posterior talar process and a small loose body superior to the posterior talar process. Other findings:None. IMPRESSION: Degenerative changes as described above with suspected loose bodies along the posterior talocalcaneal region. Dictated by: Taras Rosa MD 08/27/2020 14:25 Taras Rosa MD in [facility] 08/27/2020 14:25
== END ==
PROVIDERS: PCP Nurse Practitioner Family; Visit Provider Podiatrist
DX: M79.671 Pain in right foot (principal); M25.571 Pain in right ankle and joints of right foot
CPT/HCPCS: 73610; 73630

== ENCOUNTER 2020-10-03 18:21 | Emergency (ER) | payer OTHER, SELFPAY ==
[2020-10-03] VITALS (7 sets, daily range): BP systolic 155–196; BP diastolic 90–119; PULSE 75–95; RESP 15–16; TEMP 36.7–37.2; O2SAT 97–99; BMI 43.5
[2020-10-03 19:45] LABS: Alanine Aminotransferase 58 U/L (12-78); Albumin Level 4.8 g/dl (3.5-5.0); Albumin/Globulin Ratio 1.3 (1.1-1.8); Alkaline Phosphatase 88 U/L (38-126); Anion Gap 12.4 mEq/L (5-15); Aspartate Amino Transferase 51 U/L (14-36); Bilirubin,Total 0.9 mg/dl (0.2-1.3); Blood Urea Nitrogen 13 mg/dl (7-17); Calcium 9.7 mg/dl (8.4-10.2); Carbon Dioxide 30 mmol/L (22.0-30.0); Chloride 101 mmol/L (98-107); Creatinine Clearance Estimated 88 mL/min (50-200); Estimated Glomerular Filt Rate 78 ml/min (>60); GFR (African American) 95 ML/MIN (>60); Globulin 3.6 g/dL (1.3-3.2); Glucose 85 mg/dl (74-100); Potassium 4.4 mmoL/L (3.5-5.1); Sodium 139 mmol/L (136-145); Total Protein,Serum 8.4 g/dl (6.3-8.2)
[2020-10-03 20:05] LABS: Basophils % 0.3 % (0.1-2.0); Eosinophils # 0.4 K/mm3 (0.0-0.4); Eosinophils % 3.6 % (0.1-12.0); Hematocrit 39.1 % (37.0-47.0); Hemoglobin 12.8 g/dL (12.2-16.2); Lymphocytes # 1.8 K/mm3 (0.7-4.5); Lymphocytes % 18.3 % (10-50); Mean Corpuscular HGB Conc 32.8 g/dL (31.8-35.4); Mean Corpuscular Hemoglobin 30.6 pg (27.0-31.2); Mean Corpuscular Volume 93.1 fl (81-99); Monocytes # 0.5 K/mm3 (0.1-1.0); Monocytes % 5.3 % (1.7-9.3); Neutrophils # 7.2 K/mm3 (1.8-7.8); Neutrophils % 72.6 % (37.0-80.0); Platelet Count 328 K/mm3 (142-424); Red Cell Distribution Width 12.7 % (11.5-17.5); White Blood Count 9.9 K/mm3 (4.8-10.8)
--- NOTE | 2020-10-03 20:14 | HMH.EDHA ---
ED Disposition Clinical Impression: Migraine Qualifiers: Migraine type: unspecified Status migrainosus presence: without status migrainosus Intractability: not intractable Qualified Code(s): G43.909 - Migraine, unspecified, not intractable, without status migrainosus Disposition: Home, Self-Care Condition on Discharge: Good Instructions: DI for Migraine Additional Instructions: use meds and call pcp in am Referrals: Blaine Hernandez APRN [Primary Care Provider] - - Critical Care Critical Care Time: No Attestation: On 10/03/20, the high probability of a clinically significant, sudden or life threatening deterioration of the following system(s) required my full and direct attention, intervention and personal management. The time I documented below is in addition to time spent performing reported procedures but includes the following listed in this critical care notation. Medical Decision Making - Medical Records Medical records reviewed: Yes: I reviewed the patient's medical records. - Mark Inquiry Pt receiving controlled substance: No Vital Signs: 10/03/20 18:24 10/03/20 19:47 10/03/20 19:50 Temperature 99.0 F Temperature Source Oral Pulse Rate 88 90 Pulse Rate [Right] 95 H Respiratory Rate 16 Blood Pressure 170/108 H 196/119 H Blood Pressure [Right Arm] 161/92 H Blood Pressure Mean [Right Arm] 115 02 Sat by Pulse Oximetry 98 99 99 Oxygen Delivery Method Room Air 10/03/20 20:01 10/03/20 20:06 10/03/20 20:31 Temperature Temperature Source Pulse Rate 95 H 85 94 H Pulse Rate [Right] Respiratory Rate Blood Pressure 191/114 H 162/94 H 155/90 H Blood Pressure [Right Arm] Blood Pressure Mean [Right Arm] 02 Sat by Pulse Oximetry 98 97 99 Oxygen Delivery Method - Lab Data Lab results reviewed: Yes: I reviewed the patient's lab results. Lab Results 10/03/20 18:48: WBC 9.9, RBC 4.20, Hgb 12.8, Hct 39.1, MCV 93.1, MCH 30.6, MCHC 32.8, RDW 12.7, Plt Count 328, MPV 7.0 L, Neut % (Auto) 72.6, Lymph % (Auto) 18.3, Heard % (Auto) 5.3, Eos % (Auto) 3.6, Baso % (Auto) 0.3, Neut # (Auto) 7.2, Lymph # (Auto) 1.8, Heard # (Auto) 0.5, Eos # (Auto) 0.4, Baso # (Auto) 0.0 10/03/20 18:48: Sodium 139, Potassium 4.4, Chloride 101, Carbon Dioxide 30, Anion Gap 12.4, BUN 13, Creatinine 0.80, Estimated Creat Clear 88, Estimated GFR 78, Est GFR ( Amer) 95, Glucose 85, Calcium 9.7, Total Bilirubin 0.9, AST 51 H, ALT 58, Alkaline Phosphatase 88, Total Protein 8.4 H, Albumin 4.8, Globulin 3.6 H, Albumin/Globulin Ratio 1.3 Result diagrams: 10/03/20 18:48 10/03/20 18:48 Orders (Tests/Meds): ED MEDICATIONS Generic Name Dose Route Start Last Admin Trade Name Freq PRN Reason Stop Dose Admin Sodium Chloride 1,000 mls @ 999 mls/hr 10/03/20 19:00 10/03/20 18:56 Sod Chlor 0.9% 1000ml Bag IV 10/03/20 20:00 999 mls/hr .Q1H1M [place] Administration Sodium Chloride 8 ml 10/03/20 19:40 Sodium Chloride 0.9% 10ml Vial IV 11/02/20 19:39 NEEDED PRN dilute pepcid Discontinued Medications Generic Name Dose Route Start Last Admin Trade Name Freq PRN Reason Stop Dose Admin Diphenhydramine HCl 50 mg 10/03/20 19:45 10/03/20 19:47 Diphenhydramine 50mg/Ml Vial IV 10/03/20 19:46 50 mg ONCE ONE Administration Famotidine 20 mg 10/03/20 19:40 10/03/20 19:41 Famotidine 20mg/2ml Vial IV 10/03/20 19:41 20 mg ONCE ONE Administration Methylprednisolone Sodium Succinate 125 mg 10/03/20 19:33 10/03/20 19:41 Methylprednisolone Sod Succ 125mg Vial IV 10/03/20 19:34 125 mg ONCE ONE Administration Metoclopramide HCl 10 mg 10/03/20 19:34 10/03/20 19:36 Metoclopramide Hcl 10mg/2ml Vial IVP 10/03/20 19:35 10 mg ONCE ONE Administration Ondansetron HCl 4 mg 10/03/20 18:51 10/03/20 18:57 Ondansetron 4mg/2ml Vial IV 10/03/20 18:52 4 mg ONCE ONE Administration Prochlorperazine Edisylate 10 mg 10/03/20 20:16 10/03/20 20:24
== END 2020-10-03 20:54 | disposition home or self-care (01) ==
PROVIDERS: Emergency Medicine; Emergency Provider Emergency Medicine; PCP Nurse Practitioner Family
DX: G43.909 Migraine, unspecified, not intractable, without status migrainosus (principal); I25.10 Atherosclerotic heart disease of native coronary artery without angina pectoris; F41.8 Other specified anxiety disorders; E78.5 Hyperlipidemia, unspecified; I10 Essential (primary) hypertension
CPT/HCPCS: 80053; 85025; 96365; 96375; 99282; J2405

== ENCOUNTER 2020-10-09 15:21 | Emergency (ER) | payer OTHER, SELFPAY ==
[2020-10-09 15:25] VITALS: BP 113/79; PULSE 79; RESP 20; TEMP 36.8; O2SAT 96; BMI 43.4
--- NOTE | 2020-10-09 16:18 | HMH.EDUTC ---
[facility] [place] Disposition Clinical Impression: Fatigue Qualifiers: Fatigue type: unspecified Qualified Code(s): R53.83 - Other fatigue Disposition: Home, Self-Care Condition on Discharge: Good Instructions: DI for Dehydration -- Adult, DI for Fatigue Additional Instructions: Make sure that you are drinking plenty of fluids especially if you are out in the sun and heat like gatoraide etc Return if needed Straight to ER if any life threatening symptoms Follow up with Family Doctor if needed Referrals: Blaine Hernandez APRN [Primary Care Provider] - As needed Time of Disposition: 17:53 Medical Decision Making - Mark Inquiry Pt receiving controlled substance: No Mark was queried for this patient: No Vital Signs: 10/09/20 15:25 10/09/20 17:04 Temperature 98.2 F 98.2 F Temperature Source Oral Pulse Rate 79 Pulse Rate [Left Brachial] 79 Respiratory Rate 20 20 Blood Pressure 113/79 Blood Pressure [Left Arm] 113/79 Blood Pressure Mean [Left Arm] 90 Blood Pressure Source [Left Arm] Automatic Cuff Blood Pressure Position [Left Arm] Sitting 02 Sat by Pulse Oximetry 96 Oxygen Delivery Method Room Air Orders (Tests/Meds): ED MEDICATIONS Discontinued Medications Generic Name Dose Route Start Last Admin Trade Name Freq PRN Reason Stop Dose Admin Sodium Chloride 1,000 mls @ 999 mls/hr 10/09/20 16:30 10/09/20 16:28 Sod Chlor 0.9% 1000ml Bag IV 10/09/20 17:30 999 mls/hr .Q1H1M [place] Administration Medical Decision Narrative: Discussed labs and patient declined states that she just had lab draw a couple days ago also discussed transfer to the ED and patient declined states that she feels like she just needs some fluids and will feel better Patient states that she feels much better after fluids, no longer feeling like mouth is dry [facility] [place] HPI - General Stated complaint: weakness Time Seen by Provider: 10/09/20 16:18 Mode of Arrival: Ambulatory Source of Information: Patient Limitations: No Limitations Description of Symptoms (Recalled from Triage Doc. by RN): PATIENT STATES SHE HAS BEEN FEELING WEAK AND A LITTLE SHAKY SINCE THIS MORNING. SHE SAYS SHE DOESN'T FEEL RIGHT AND WAS WORRIED THAT HER BLOOD PRESSURE WAS LOW. HEENT Symptoms (Recalled from RN notes): No Resp Symptoms (Recalled from RN notes): No Skin Symptoms (Recalled from RN notes): No MS Symptoms (Recalled from RN notes): No Functional Status (Recalled from RN notes): WNL - History of Present Illness Provider Complaint: Patient states that she has some kids at home and they have all had upper respiratory stuff like runny nose State that she hasnt felt well for a couple days with sniffles and stuff and thinks it is allergies but she has been sitting outside and it is hot and not drinking fluids like she normally does and thinks she may be a little dehydrated State that her mouth feels dry and she felt tired and dragging this morning States that she thought her blood pressure may have been low and wanted to come in and get it checked Denies chest pain, denies shortness of breath denies exposure to COVID - Related Data Home Medications Medication Instructions Recorded Confirmed Atorvastatin Calcium [Lipitor 10mg 10 mg PO HS 10/09/20 10/09/20 Tab] Desvenlafaxine Succinate 50 mg PO DAILY 10/09/20 10/09/20 [Desvenlafaxine Succinate ER] Ergocalciferol (Vitamin D2) 50,000 unit PO QWEEK 10/09/20 10/09/20 [Drisdol] Gabapentin 800 mg PO TID 10/09/20 10/09/20 Losartan Potassium [Cozaar 50mg 25 mg PO BID 10/09/20 10/09/20 Tablets] Metformin HCl [Glucophage] 500 mg PO BID 10/09/20 10/09/20 Mirtazapine [Remeron] 15 mg PO QHS 10/09/20 10/09/20 Spironolactone [Spironolactone 25 mg PO DAILY 10/09/20 10/09/20 25mg Tablet] Tizanidine HCl 4 mg PO BID 10/09/20 10/09/20 Topiramate 25 mg PO HS 10/09/20 10/09/20 carvediloL [Carvedilol 12.5mg Tab] 12.5 mg PO BID 10/09/20 10/09/20 hydroCHLOROthiazide 12.5 mg PO DAILY 10/09/20
[2020-10-09 17:04] VITALS: BP 113/79; PULSE 79; RESP 20; TEMP 36.8; O2SAT 96
== END 2020-10-09 17:57 | disposition home or self-care (01) ==
PROVIDERS: Emergency Provider Nurse Practitioner; PCP Nurse Practitioner Family
DX: R53.83 Other fatigue (principal); E86.0 Dehydration; F41.8 Other specified anxiety disorders; I10 Essential (primary) hypertension; Z87.442 Personal history of urinary calculi; E78.5 Hyperlipidemia, unspecified; Z88.0 Allergy status to penicillin; Z79.899 Other long term (current) drug therapy
CPT/HCPCS: 96365; 99202; G0463

== ENCOUNTER → 2020-10-23 14:58 | Outpatient (CLI) | payer OTHER, SELFPAY ==
[2020-10-23 15:28] LABS: Basophils # 0.1 K/mm3 (0-0.2); Basophils % 0.7 % (0.1-2.0); Eosinophils # 0.4 K/mm3 (0.0-0.4); Eosinophils % 4.4 % (0.1-12.0); Hematocrit 38.9 % (37.0-47.0); Hemoglobin 13.1 g/dL (12.2-16.2); Lymphocytes # 3.1 K/mm3 (0.7-4.5); Lymphocytes % 35.2 % (10-50); Mean Corpuscular HGB Conc 33.6 g/dL (31.8-35.4); Mean Corpuscular Hemoglobin 30.5 pg (27.0-31.2); Mean Corpuscular Volume 90.5 fl (81-99); Monocytes # 0.4 K/mm3 (0.1-1.0); Neutrophils # 4.8 K/mm3 (1.8-7.8); Neutrophils % 54.7 % (37.0-80.0); Platelet Count 361 K/mm3 (142-424); Red Blood Count 4.29 M/mm3 (4.20-5.40); Red Cell Distribution Width 12.7 % (11.5-17.5); White Blood Count 8.8 K/mm3 (4.8-10.8)
[2020-10-23 15:42] LABS: Chloride 107 mmol/L (98-107)
[2020-10-23 15:43] LABS: Potassium 4.6 mmoL/L (3.5-5.1); Sodium 141 mmol/L (136-145)
[2020-10-23 15:45] LABS: Alanine Aminotransferase 72 U/L (12-78); Aspartate Amino Transferase 61 U/L (14-36); Blood Urea Nitrogen 14 mg/dl (7-17); Estimated Glomerular Filt Rate 78 ml/min (>60); GFR (African American) 95 ML/MIN (>60)
[2020-10-23 15:46] LABS: Albumin Level 4.9 g/dl (3.5-5.0); Albumin/Globulin Ratio 1.5 (1.1-1.8); Alkaline Phosphatase 92 U/L (38-126); Anion Gap 15.6 mEq/L (5-15); Bilirubin,Total 0.7 mg/dl (0.2-1.3); Calcium 9.6 mg/dl (8.4-10.2); Carbon Dioxide 23 mmol/L (22.0-30.0); Chol/HDL Ratio 5.3 (1-3.5); Cholesterol 208 mg/dl (140-200); Globulin 3.2 g/dL (1.3-3.2); Glucose 99 mg/dl (74-100); HDL Cholesterol 39 mg/dl (40-60); Total Protein,Serum 8.1 g/dl (6.3-8.2); Triglycerides 179 mg/dl (30-150); VLDL Cholesterol 36 mg/dL (0-40)
[2020-10-23 15:57] LABS: Direct LDL Cholesterol 124.04 mg/dL (100-129)
[2020-10-23 16:04] LABS: T4 (Thyroxine) 8.9 ug/dl (5.53-11.0)
[2020-10-23 16:17] LABS: Thyroid Stimulating Hormone 1.62 uIU/mL (0.465-4.68)
[2020-10-23 16:19] LABS: 25-OH Vitamin D, Total 41.7 ng/mL (30-100)
[2020-10-23 17:23] LABS: Vitamin B12 420 pg/mL (239-931)
[2020-10-23 18:20] LABS: Iron 102 ug/dL (37-170); Total Iron Binding Capacity 381 ug/dL (265-497)
== END ==
PROVIDERS: Visit Provider Nurse Practitioner Family
DX: R53.83 Other fatigue (principal); I77.9 Disorder of arteries and arterioles, unspecified; E66.9 Obesity, unspecified; Z68.41 Body mass index [BMI] 40.0-44.9, adult
CPT/HCPCS: 36415; 80053; 80061; 82306; 82607; 83540; 83550; 84436; 84443; 85025

== ENCOUNTER → 2020-12-24 17:10 | Outpatient (CLI) | payer OTHER, SELFPAY ==
--- NOTE | 2020-12-26 09:15 | PC.NURSE ---
PATIENT CAME IN ON 12/24/20 FOR HST AND DID NOT RETURN DEVICE UNTIL 12/26/20 - LESS THAN 1 HOUR OF SLEEP TIME - THEREFORE NOT UP LOADED - NO CHARGE TO PATIENT.......
== END ==
PROVIDERS: PCP Nurse Practitioner Family; Visit Provider Nurse Practitioner Family
DX: R06.83 Snoring (principal)

== ENCOUNTER 2021-01-03 16:05 | Emergency (ER) | payer OTHER, SELFPAY ==
[2021-01-03 16:06] VITALS: BP 123/72; PULSE 103; RESP 24; TEMP 36.9; O2SAT 98; BMI 44.4
[2021-01-03 17:30] VITALS: BP 128/73; PULSE 92; RESP 16; O2SAT 94
--- NOTE | 2021-01-03 17:54 | HMH.EDGENADL ---
ED Disposition Clinical Impression: Muscle spasm of back Disposition: Home, Self-Care Condition on Discharge: Good Instructions: DI for Low Back Pain, DI for Muscle Spasm Additional Instructions: Continue your current medications. Call your primary care doctor tomorrow morning if not improved. Referrals: Blaine Hernandez APRN [Primary Care Provider] - - Critical Care Critical Care Time: No Attestation: On 01/03/21, the high probability of a clinically significant, sudden or life threatening deterioration of the following system(s) required my full and direct attention, intervention and personal management. The time I documented below is in addition to time spent performing reported procedures but includes the following listed in this critical care notation. Medical Decision Making - Medical Records Medical records reviewed: Yes: I reviewed the patient's medical records. MR Comment: Reviewed prior lumbar spine MRI from 12/17/2019. Reviewed most recent primary care provider visit on 12/19/2020 for exacerbation of back pain, treated with intramuscular Toradol and Decadron, prescription for prednisone. - Mark Inquiry Pt receiving controlled substance: No Vital Signs: 01/03/21 16:06 01/03/21 17:30 Temperature 98.4 F Temperature Source Oral Pulse Rate 92 H Pulse Rate [Radial] 103 H Respiratory Rate 24 16 Blood Pressure 128/73 Blood Pressure [Right Arm] 123/72 Blood Pressure Mean 83 Blood Pressure Mean [Right Arm] 89 Blood Pressure Position [Right Arm] Sitting 02 Sat by Pulse Oximetry 98 94 L Oxygen Delivery Method Room Air General Adult HPI - General Chief complaint: Back Pain/Injury Stated complaint: back pain Time Seen by Provider: 01/03/21 17:54 Mode of Arrival: Ambulatory Limitations: No Limitations Description of Symptoms (Recalled from ER Triage Doc. by RN): TO ED PER [employer] [facility] WITH C/O BACK PAIN. PT WITH HX OF CHRONIC BACK PAIN STATES RETURNED TO WORK YESTERDAY AND OVER DID IT PT STATES TOOK HOME MEDICATION WITH NO RELIEF OF SYMPTOMS. PT TEARFUL. 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 She says that she is overdone it and now has back spasms in her lower back and upper back. She says she has tried her Flexeril at home without relief. She was requesting something to get some relief so that she can sleep. She declines a note to be off work tomorrow. She has a history of chronic back pain. - Related Data Home Medications Medication Instructions Recorded Confirmed Desvenlafaxine Succinate 50 mg PO DAILY 10/09/20 12/19/20 [Desvenlafaxine Succinate ER] Losartan Potassium [Cozaar 50mg 25 mg PO BID 10/09/20 12/19/20 Tablets] Mirtazapine [Remeron] 15 mg PO QHS 10/09/20 12/19/20 Spironolactone [Spironolactone 25 mg PO DAILY 10/09/20 12/19/20 25mg Tablet] Previous Rx's Medication Instructions Recorded galcanezumab-gnlm 120 mg/mL 120 mg SQ QMONTH 30 Days #1 ml 10/15/20 subcutaneous pen injector rimegepant 75 mg disintegrating 75 mg PO ONCE PRN #8 tab 10/15/20 tablet semaglutide 3 mg tablet 3 mg PO DAILY 30 Days #30 tab 10/15/20 atorvastatin 10 mg tablet See Rx Instructions .ROUTE 10/24/20 .COMPLEX #90 tablet ergocalciferol (vitamin D2) 1,250 See Rx Instructions .ROUTE 10/24/20 mcg (50,000 unit) capsule .COMPLEX #14 capsule metformin 500 mg tablet See Rx Instructions .ROUTE 10/24/20 .COMPLEX #180 tab cyclobenzaprine 10 mg tablet 10 mg PO TID PRN #60 tab 12/19/20 prednisone 20 mg tablet 20 mg PO BID 5 Days #10 tab 12/19/20 gabapentin 800 mg tablet 800 mg PO TID 30 Days #90 tab 12/20/20 carvedilol 12.5 mg tablet See Rx Instructions .ROUTE 12/24/20 .COMPLEX #60 tab Allergies Allergy/AdvReac Type Severity Reaction Status Date / Time amlodipine Allergy Intermediate swelling Verified 12/19/20 13:47
[2021-01-03 18:01] VITALS: BP 125/81; PULSE 104; RESP 18; O2SAT 96
[2021-01-03 18:31] VITALS: BP 114/72; PULSE 95; RESP 18; O2SAT 97
[2021-01-03 19:06] VITALS: BP 125/78; PULSE 78; RESP 16; TEMP 36.6; O2SAT 98
== END 2021-01-03 19:07 | disposition home or self-care (01) ==
PROVIDERS: Emergency Provider Emergency Medicine; PCP Nurse Practitioner Family
DX: M62.830 Muscle spasm of back (principal); M54.5 Low back pain; I10 Essential (primary) hypertension; F41.8 Other specified anxiety disorders; E78.5 Hyperlipidemia, unspecified; Z79.899 Other long term (current) drug therapy; Z88.0 Allergy status to penicillin
CPT/HCPCS: 96372; 99281

== ENCOUNTER 2021-03-04 09:25 | Emergency (ER) | payer OTHER, SELFPAY ==
[2021-03-04 09:30] VITALS: BP 188/124; PULSE 93; RESP 22; TEMP 36.9; O2SAT 96; BMI 45.1
[2021-03-04 09:46] LABS: UTC Strep Screen (Rapid) Positive (Negative)
--- NOTE | 2021-03-04 09:57 | HMH.EDUTC ---
[facility] [place] Disposition Clinical Impression: Strep throat Disposition: Home, Self-Care Condition on Discharge: Good Instructions: Strep Throat, DI for Strep Throat Additional Instructions: Drink plenty of fluids. Take tylenol or ibuprofen for pain or fever. Take the medications as directed. Follow up with your regular doctor. GO TO THE ER FOR ANY WORSENING SYMPTOMS Throw your tooth brush away and get a new one. Make sure you take your blood pressure medications as soon as you get home and don't miss them anymore. Follow up with your primary care physician regarding your blood pressure also. Prescriptions: Ondansetron [Zofran 4mg ODT] 4 mg PO Q8HP PRN #12 tab PRN Reason: Nausea Transmission Status: Received by [facility] methylPREDNISolone [Medrol] 4 mg PO DIRECTED 6 Days #21 packet Transmission Status: Received by [facility] Cefdinir [Omnicef 300mg Capsule] 300 mg PO BID #20 cap Transmission Status: Received by [facility] Benzonatate [Tessalon Perle 100mg Cap] 100 mg PO TIDP PRN #30 cap PRN Reason: Cough Transmission Status: Received by [facility] Referrals: Mahesh Horton MD [Primary Care Provider] - Time of Disposition: 10:07 Medical Decision Making - Medical Records Medical records reviewed: No: I reviewed the patient's medical records. - Mark Inquiry Pt receiving controlled substance: No Vital Signs: 03/04/21 09:30 03/04/21 10:07 Temperature 98.5 F 98.5 F Temperature Source Oral Pulse Rate 93 H Pulse Rate [Left Brachial] 93 H Respiratory Rate 22 22 Blood Pressure 188/124 H Blood Pressure [Left Arm] 188/124 H Blood Pressure Mean [Left Arm] 145 Blood Pressure Source [Left Arm] Automatic Cuff Blood Pressure Position [Left Arm] Sitting 02 Sat by Pulse Oximetry 96 Oxygen Delivery Method Room Air - Lab Data Lab results reviewed: Yes: I reviewed the patient's lab results. Lab Results 03/04/21 09:42: Strep Scn Rapid Clinic Positive A [facility] [place] HPI - General Stated complaint: sore throat, cough, congestion Time Seen by Provider: 03/04/21 09:58 Mode of Arrival: Ambulatory Source of Information: Patient Limitations: No Limitations Description of Symptoms (Recalled from Triage Doc. by RN): PATIENT C/O SORE THROAT, COUGH, CONGESTION, SOA AND EARS FEELING ITCHY X 3 DAYS HEENT Symptoms (Recalled from RN notes): Yes Resp Symptoms (Recalled from RN notes): Yes Skin Symptoms (Recalled from RN notes): No MS Symptoms (Recalled from RN notes): No Functional Status (Recalled from RN notes): WNL - History of Present Illness Provider Complaint: She c/o sore throat and feeling bad for the past 2 days. She has had low grade fever, chills, and a very sore throat. She also has had diarrhea and nausea. She has been around some children with strep throat. She denies any known covid-19 contact. She has been fully vaccinated against covid-19. - Related Data Home Medications Medication Instructions Recorded Confirmed Desvenlafaxine Succinate 50 mg PO DAILY 10/09/20 12/19/20 [Desvenlafaxine Succinate ER] Losartan Potassium [Cozaar 50mg 25 mg PO BID 10/09/20 12/19/20 Tablets] Mirtazapine [Remeron] 15 mg PO QHS 10/09/20 12/19/20 Previous Rx's Medication Instructions Recorded galcanezumab-gnlm 120 mg/mL 120 mg SQ QMONTH 30 Days #1 ml 10/15/20 subcutaneous pen injector rimegepant 75 mg disintegrating 75 mg PO ONCE PRN #8 tab 10/15/20 tablet semaglutide 3 mg tablet 3 mg PO DAILY 30 Days #30 tab 10/15/20 atorvastatin 10 mg tablet See Rx Instructions .ROUTE 10/24/20 .COMPLEX #90 tablet ergocalciferol (vitamin D2) 1,250 See Rx Instructions .ROUTE 10/24/20 mcg (50,000 unit) capsule .COMPLEX #14 capsule metformin 500 mg tablet See Rx Instructions .ROUTE 10/24/20 .COMPLEX #180 tab prednisone 20 mg tablet 20 mg PO BID 5 Days #10 tab 12/19/20 gabapentin 800 mg tablet 800 mg PO TID 30 Days #90 tab 12/20/20 carvedilol
[2021-03-04 10:07] VITALS: BP 188/124; PULSE 93; RESP 22; TEMP 36.9; O2SAT 96
== END 2021-03-04 10:12 | disposition home or self-care (01) ==
PROVIDERS: Emergency Provider Nurse Practitioner Family; PCP Emergency Medicine
DX: J02.0 Streptococcal pharyngitis (principal); F41.8 Other specified anxiety disorders; I25.10 Atherosclerotic heart disease of native coronary artery without angina pectoris; Z88.0 Allergy status to penicillin
CPT/HCPCS: 87880; 99202; G0463

== ENCOUNTER → 2021-04-09 11:27 | Outpatient (POV) | payer OTHER, SELFPAY ==
[2021-04-09 11:40] VITALS: BP 175/86; PULSE 81; RESP 18; O2SAT 96; BMI 45.1
--- NOTE | 2021-04-09 11:59 | HMH.PMCON ---
Assessment and Plan (1) Facet arthropathy, lumbar Status: Acute Category: Medical Code(s): M47.816 - Spondylosis without myelopathy or radiculopathy, lumbar region (2) Ligamentum flavum hypertrophy Status: Acute Category: Medical Code(s): M24.28 - Disorder of ligament, vertebrae (3) Lumbar radiculopathy Status: Acute Category: Medical Code(s): M54.16 - Radiculopathy, lumbar region (4) Degenerative disc disease, lumbar Status: Acute Category: Medical Code(s): M51.36 - Other intervertebral disc degeneration, lumbar region - Assessment and plan all Dx Assessment and Plan for all problems:: Ordering Physician: Blaine Hernandez APRN Date of Service: 12/16/19 Procedure(s): MR lumbar spine wo con Accession Number(s): [id number] cc: Taras Rosa MD; Mahesh Horton MD~ PROCEDURE: MR LUMBAR SPINE WO CON CLINICAL INDICATION: back pain LBP. INTERMITTENT BILATERAL LEG PAIN, NUMBNESS, AND TINGLING. SYMPTOMS XYRS. PRIOR CT 01-03-19 COMPARISON: CT CT LUMBAR SPINE WO CON from 01/03/2019 TECHNIQUE: Standard multiplanar multiecho sequences are performed without contrast. 3-D MIP and myelographic images are also rendered and reviewed FINDINGS: There is normal alignment. The spinal cord ends at the L1 level. T12-L1: Mild degenerative disc disease. There is a small right paracentral/foraminal disc herniation that is causing right lateral recess and foraminal narrowing and is impinging upon the right and anterior aspect of the lower cord/cauda equina L1-L2: Unremarkable. L2-L3: Unremarkable. Hemangioma is present involving the L2 vertebral body at 2.6 cm L3-L4: Mild facet and ligamentum hypertrophy. L4-5: Degenerate disc disease with bulging disc along facet ligamentum hypertrophy and minimal broad-based central disc protrusion. There is borderline narrowing of the canal at 12 mm. Lateral recess and foraminal narrowing noted slightly greater on the left. L5-S1: Mild bulging disc with minimal left paracentral disc protrusion with facet and ligamentum hypertrophy. There is bilateral lateral recess narrowing and foraminal narrowing greater on the left with minimal impingement upon the left S1 nerve root IMPRESSION: 1. T12-L1: Mild degenerative disc disease. There is a small right paracentral/foraminal disc herniation that is causing right lateral recess and foraminal narrowing and is impinging upon the right and anterior aspect of the lower cord/cauda equina 2. L4-5: Degenerate disc disease with bulging disc along facet ligamentum hypertrophy and minimal broad-based central disc protrusion. There is borderline narrowing of the canal at 12 mm. Lateral recess and foraminal narrowing noted slightly greater on the left. 3. L5-S1: Mild bulging disc with minimal left paracentral disc protrusion with facet and ligamentum hypertrophy. There is bilateral lateral recess narrowing and foraminal narrowing greater on the left with minimal impingement upon the left S1 nerve root Dictated by: Taras Rosa MD 12/17/2019 09:04 Taras Rosa MD in [place] 12/17/2019 09:04 Patient's pain is currently being managed with gabapentin 800 mg 3 times a day and cyclobenzaprine 10 mg that is prescribed by Dr. Horton. From the MRI, patient is having some facet and ligamentum hypertrophy in the levels of L4-L5. Patient has had lumbar epidural steroid injections in the past. We will schedule the patient for another lumbar epidural steroid injection with epidurogram. Risks and benefits of the procedure have been explained to the patient. Patient would like to proceed with the procedure. Patient is currently not on any blood thinners. If patient gets no relief or minimal relief from this injection, we will try to do a medial branch block. Patient has been instructed to contact the clinic with any concerns before the next appointment. Dr. Hernandez has reviewed this note and agrees with this plan of care. This n
== END ==
PROVIDERS: Visit Provider Clinical Nurse Specialist Family Health
DX: M47.896 Other spondylosis, lumbar region (principal); M24.28 Disorder of ligament, vertebrae; M51.16 Intervertebral disc disorders with radiculopathy, lumbar region
CPT/HCPCS: 99202; G0463

== ENCOUNTER 2021-04-17 16:48 | Emergency (ER) | payer OTHER, SELFPAY ==
[2021-04-17 16:49] VITALS: BP 148/94; PULSE 88; RESP 16; TEMP 37; O2SAT 98; BMI 45.1
[2021-04-17 18:37] VITALS: BP 129/86; PULSE 83; RESP 14; O2SAT 96
[2021-04-17 18:46] LABS: Microscopic, Urine URINE MICROSCOPIC (MICROSCOPIC)
[2021-04-17 18:51] LABS: Appearance,Urine CLEAR (Clear); Bilirubin,Urine Negative (Negative); Blood, Urine Negative (Negative); Color,Urine YELLOW (Yellow); Glucose,Urine (UA) Negative (Negative); Ketones,Urine Negative (Negative); Leukocyte Esterase,Urine Negative (Negative); Nitrate,Urine Negative (Negative); Protein,Urine Negative (Negative); Specific Gravity, Urine >= 1.030 (1.005-1.030); Urobilinogen,Urine 0.2 EU/dl (0.2)
[2021-04-17 19:25] LABS: Bacteria,Urine 2+ /lpf
--- NOTE | 2021-04-17 19:51 | HMH.EDUROGF ---
ED Disposition Clinical Impression: Flank pain, UTI (urinary tract infection) Disposition: Home, Self-Care Condition on Discharge: Good Instructions: Urinary Tract Infection, DI for Flank Pain Additional Instructions: Please follow-up with your primary care physician in 2 to 3 days for further management. May take Tylenol and ibuprofen for pain control. You have also been prescribed Toradol please take as prescribed for pain control. Please also take antibiotic as prescribed. Please return for any concerning symptoms such as vaginal bleeding, worsening abdominal pain, fevers, lethargy or any other concerning symptoms. 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 The time I documented below is in addition to time spent performing reported procedures but includes the following listed in this critical care notation. Medical Decision Making - Medical Records Medical records reviewed: Yes: I reviewed the patient's medical records. - Mark Inquiry Pt receiving controlled substance: No Vital Signs: 04/17/21 16:49 04/17/21 18:37 04/17/21 19:58 Temperature 98.6 F 98.6 F Temperature Source Oral Pulse Rate 83 82 Pulse Rate [Right Brachial] 88 Respiratory Rate 16 14 16 Blood Pressure 129/86 126/85 Blood Pressure [Right Arm] 148/94 H Blood Pressure Mean 101 Blood Pressure Mean [Right Arm] 112 Blood Pressure Source [Right Arm] Automatic Cuff Blood Pressure Position [Right Arm] Sitting 02 Sat by Pulse Oximetry 98 96 Oxygen Delivery Method Room Air Room Air - Lab Data Lab results reviewed: Yes: I reviewed the patient's lab results. Lab Results 04/17/21 18:26: Urine Color Yellow, Urine Appearance Clear, Urine pH 6.0, Ur Specific [place] >= 1.030, Urine Protein Negative, Urine Glucose (UA) Negative, Urine Ketones Negative, Urine Blood Negative, Urine Nitrate Negative, Urine Bilirubin Negative, Urine Urobilinogen 0.2, Ur Leukocyte Esterase Negative, Urine RBC 3-5, Urine WBC 3-5, Ur Squamous Epith Cells None, Urine Bacteria 2+ Orders (Tests/Meds): ED MEDICATIONS Discontinued Medications Generic Name Dose Route Start Last Admin Trade Name Sharad PRN Reason Stop Dose Admin Ketorolac Tromethamine 15 mg 04/17/21 19:53 04/17/21 19:55 Ketorolac 30mg/Ml Vial IV 04/17/21 19:54 15 mg ONCE ONE Administration ORDERS Category Date Time Status Urine Culture Stat Micro 04/17/21 18:26 Received Medical Decision Narrative: Mrs. Green is a 46-year-old female with past medical history for recurrent urinary tract infections and nephrolithiasis who presents to the emergency department with dysuria, urgency and mild bilateral flank pain since yesterday. Patient is afebrile and hemodynamically stable on arrival, nontoxic-appearing. Differentials to consider but not limited to include; UTI/pyelonephritis, nephrolithiasis, low suspicion for bowel process given current clinical picture and normal bowel movements. UA obtained for evaluation which is remarkable for UTI. Patient is prescribed cefdinir and also given a script for toradol for outpatient management. Patient is discharged in stable condition and informed to return to the ED for any concerning symptom such as worsening abdominal pain. Female Urogenital HPI - General Chief complaint: Urogenital-Female Stated complaint: lower back pain unable to urinate Ti
[2021-04-17 19:58] VITALS: BP 126/85; PULSE 82; RESP 16; TEMP 37; O2SAT 96
== END 2021-04-17 19:59 | disposition home or self-care (01) ==
PROVIDERS: Emergency Provider Student in an Organized Health Care Education/Training Program; PCP Emergency Medicine
DX: N30.00 Acute cystitis without hematuria (principal); F41.8 Other specified anxiety disorders; E78.5 Hyperlipidemia, unspecified; Z87.442 Personal history of urinary calculi
CPT/HCPCS: 81001; 87086; 96372; 99282

== ENCOUNTER 2021-05-06 14:00 | Outpatient (RCR) | payer OTHER, SELFPAY ==
--- NOTE | 2021-04-10 11:07 | HMH.PTOPEV ---
PT Outpatient Evaluation Rehab PT Outpatient Evaluation Start: 04/10/21 10:35 Freq: Status: Active Protocol: Document 04/10/21 10:55 SHILPADAVID (Rec: 04/10/21 11:07 DUNCAN [id number]) Electronically Signed By Justin Hollis, PT 04/10/21 10:55 Outpatient Therapy Subjective History Subjective History Patient is a 46 year old female presenting to outpatient PT with reports of chronic LBP with intermittent BLE radicular symptoms. Symptoms of insidious onset starting approx 1 year ago. Most recent imaging indicates multi-level DDD and bulging discs. No previous treatment to report. Chief Complaint Pain,Spasms,Stiff,Paresthesia Symptom Type Ache Symptoms Relieved By Rest/Positioning,Heat, Prescription Meds Symptoms Aggravated By Standing,Physical Activity, Walking,Lifting Prior Functional Limitations None Current Functional Limitations Lifting,Housework,Sleeping, Standing,Walking,Bending/ Stooping Symptom Description Constant but Variable Level of pain today (0-10) 8 Pain scale - at its best (0-10) 6 Pain scale - at its worst (0-10) 10 Lumbopelvic Eval Posture Thoracic Spine Posture Standing Position Increased Kyphosis Lumbar Spine Posture Standing Position Increased Lordosis Assistive device Assistive Devices None / NA Palapation tenderness bilateral lumbar spinal tenderness Yes: L1-S1 3/4 paraspinal tenderness Yes: buttock tenderness Yes: B 3/4 Accessory Movement L2 bilateral L3 bilateral L4 bilateral L5 bilateral S1 bilateral Range of Motion Lumbar Spine Active Flexion Range of 58 Motion (degrees) Lumbar Spine Active Extension Range of 10 Motion (degrees) Left Lumbar Spine Lateral Flexion Active 15 Range of Motion (degrees) Right Lumbar Spine Lateral Flexion 15 Active Range of Motion (degrees) Lumbar Spine ROM Limitations Soft Tissue Tightness,Bony Restriction,Pain Manual Muscle Test Bilateral Knee Extension Strength Grade 5 Normal Knee Flexion Strength Grade 5 Normal Hip Flexion Strength Grade 5 Normal Extensor Hallucis Longus Strength Grade 5 Normal Ankle Dorsiflexion Strength Grade 5 Normal Gastronemius/Soleu
== END 2021-05-06 14:05 | disposition home or self-care (01) ==
LOC: PT 14:00
PROVIDERS: PCP Emergency Medicine; Visit Provider Nurse Practitioner Family
DX: M54.16 Radiculopathy, lumbar region (principal)
CPT/HCPCS: 97010; 97014; 97110; 97163; G0283

== ENCOUNTER → 2021-05-16 12:00 | Outpatient (CLI) | payer OTHER, SELFPAY | PROVIDERS: PCP Emergency Medicine; Visit Provider Nurse Practitioner | DX: U07.1 COVID-19 (principal) | CPT/HCPCS: C9803; U0003; U0005 ==

== ENCOUNTER → 2021-05-23 15:57 | Outpatient (CLI) | payer OTHER, SELFPAY | PROVIDERS: Visit Provider Nurse Practitioner | DX: U07.1 COVID-19 (principal) | CPT/HCPCS: C9803; U0003; U0005 ==

== ENCOUNTER → 2021-05-28 14:05 | Outpatient (CLI) | payer OTHER, SELFPAY ==
[2021-05-28 14:12] LABS: Adenovirus,PCR Not Detected (NotDetected); Bordetella Pertussis Not Detected (NotDetected); Chlamydophila Pneumoniae, PCR Not Detected (NotDetected); Coronavirus 229E Not Detected (NotDetected); Coronavirus NL63 Not Detected (NotDetected); Coronavirus OC43 Not Detected (NotDetected); Coronovirus HKU1,PCR Not Detected (NotDetected); Human Metapneumovirus Not Detected (NotDetected); Influenza A, PCR Not Detected (NotDetected); Influenza AH1, 2009 Not Detected (NotDetected); Influenza AH1, PCR Not Detected (NotDetected); Influenza AH3,PCR Not Detected (NotDetected); Influenza B, PCR Not Detected (NotDetected); Mycoplasma Pneumoniae, PCR Not Detected (NotDetected); Parainfluenza 1, PCR Not Detected (NotDetected); Parainfluenza 2, PCR Not Detected (NotDetected); Parainfluenza 3, PCR Not Detected (NotDetected); Parainfluenza 4, PCR Not Detected (NotDetected); Respiratory Syncytial Virus Not Detected (NotDetected); Rhinovirus/Enterovirus Not Detected (NotDetected)
== END ==
PROVIDERS: Visit Provider Nurse Practitioner Family
DX: Z20.822 Contact with and (suspected) exposure to COVID-19 (principal); R06.02 Shortness of breath
CPT/HCPCS: 87486; 87581; 87632; 87798

== ENCOUNTER 2021-05-31 10:01 | Day surgery (SDC) | payer OTHER, SELFPAY ==
[2021-05-31 10:06] VITALS: BP 141/87; PULSE 75; RESP 20; TEMP 36.2; O2SAT 98; BMI 45.1
[2021-05-31 10:34] VITALS: BP 124/84; PULSE 65; PULSE 66; RESP 18; O2SAT 96
--- NOTE | 2021-05-31 10:35 | HMH.PMPROC ---
- Procedure Date: 05/31/21 Time: 10:36 Anesthesiologist:: Mhaendra Hernandez MD Complications:: None Pre-procedure Diagnosis:: Degenerative disc disease of lumbar spine with lumbar radiculopathy symptoms Post-procedure Diagnosis:: Same Indications for Procedure:: This patient is a pleasant 46-year-old white female who we are treating for low back pain with lumbar radiculopathy symptoms. She does have increasing pain radiating down both legs. We will plan on lumbar epidural steroid injection under fluoroscopy today to help with her pain symptoms. Procedure Details:: Informed consent was obtained and the risk and benefits of the procedure was explained to the patient. The patient was taken to the procedure room. The patient was placed prone on the procedure table. The patient was prepped and draped in sterile fashion. C-arm fluoroscopy was used to view the lumbar spine. Skin and subcutaneous tissues were anesthetized using lidocaine. I placed an 18-gauge epidural needle and advanced into the L4-L5 interspace using fluoroscopic guidance and [id number] to air. After confirmation of needle placement in the epidural space with dye I injected 2 mL of lidocaine 1.5% with Depo-Medrol 80 mg. Patient tolerated the procedure well with no complications. Plan and Disposition:: We will follow-up with her in 2 weeks. Will reevaluate symptoms at that time.
[2021-05-31 10:50] VITALS: BP 108/77; PULSE 72; RESP 20; O2SAT 98
== END 2021-05-31 10:50 | disposition home or self-care (01) ==
LOC: SC.PAINP 10:01
PROVIDERS: PCP Nurse Practitioner Family; Visit Provider Anesthesiology
DX: M51.16 Intervertebral disc disorders with radiculopathy, lumbar region (principal); G43.909 Migraine, unspecified, not intractable, without status migrainosus; I25.10 Atherosclerotic heart disease of native coronary artery without angina pectoris; E78.5 Hyperlipidemia, unspecified; I10 Essential (primary) hypertension; Z87.442 Personal history of urinary calculi
CPT/HCPCS: 62323; J1040; Q9966

== ENCOUNTER 2021-06-05 19:01 | Emergency (ER) | payer OTHER, SELFPAY ==
[2021-06-05 19:21] VITALS: BP 154/104; PULSE 90; RESP 16; TEMP 36.8; O2SAT 95; BMI 45.1
[2021-06-05 19:29] LABS: UTC Influenza A Antigen Negative (Negative); UTC Influenza B Antigen Negative (Negative)
[2021-06-05 19:37] LABS: Strep Scrn Group A (Rapid) Negative (Negative)
--- NOTE | 2021-06-05 20:04 | HMH.EDUTC ---
[facility] [place] Disposition Clinical Impression: Exposure to COVID-19 virus Pharyngitis Qualifiers: Pharyngitis/tonsillitis etiology: unspecified etiology Qualified Code(s): J02.9 - Acute pharyngitis, unspecified Sinusitis Qualifiers: Sinusitis location: unspecified location Chronicity: acute Recurrence: non-recurrent Qualified Code(s): J01.90 - Acute sinusitis, unspecified Disposition: Home, Self-Care Condition on Discharge: Good Instructions: Strep Throat, Sinusitis, DI for Pharyngitis/Tonsillopharyngitis -- Adult, DI for Sinusitis Additional Instructions: Drink plenty of fluids. Take tylenol or ibuprofen for pain or fever. Take the medications as directed. Follow up with your regular doctor. GO TO THE ER FOR ANY WORSENING SYMPTOMS Quarantine until you know the results of your covid-19 test. Notify your school or workplace of your results and follow their instructions regarding return to work/school. Prescriptions: Benzonatate [Benzonatate 100mg cap] 100 mg PO TIDP PRN #30 cap PRN Reason: Cough Transmission Status: Received by [facility] methylPREDNISolone [Medrol] 4 mg PO DIRECTED 6 Days #21 packet Transmission Status: Received by [facility] Azithromycin [Z-Matthew 250mg Tab*] 250 mg PO UD DOSE PK #6 tab Transmission Status: Received by [facility] Referrals: Mahesh Horton MD [Primary Care Provider] - Time of Disposition: 20:21 Medical Decision Making - Medical Records Medical records reviewed: No: I reviewed the patient's medical records. - Mark Inquiry Pt receiving controlled substance: No Vital Signs: 06/05/21 19:21 06/05/21 20:33 Temperature 98.3 F 98.3 F Temperature Source Oral Pulse Rate 90 Pulse Rate [Left] 90 Respiratory Rate 16 16 Blood Pressure 154/104 H Blood Pressure [Right Arm] 154/104 H Blood Pressure Mean [Right Arm] 120 02 Sat by Pulse Oximetry 95 - Lab Data Lab Results 06/05/21 19:15: Group A Strep Rapid Negative 06/05/21 19:15: Chlamy pneumoniae PCR Not detected, Adenovirus (PCR) Not detected, B. pertussis DNA (PCR) Not detected, Coronavirus OC43 (PCR) Not detected, Coronavirus HKU1 (PCR) Not detected, Coronavirus 229E (PCR) Not detected, SARS-CoV-2 (PCR) Not detected, Coronavirus NL63 (PCR) Not detected, Human Metapneumovir PCR Not detected, Influenza A (H1) PCR Not detected, Influ A (H1N1/09) PCR Not detected, Influenza A (H3) PCR Not detected, Influenza Type A (PCR) Not detected, Influenza Type B (PCR) Not detected, M. pneumoniae (PCR) Not detected, Parainfluenza 1 (PCR) Not detected, Parainfluenza 2 (PCR) Not detected, Parainfluenza 3 (PCR) Not detected, Parainfluenza 4 (PCR) Not detected, RSV (PCR) Not detected, Entero/Rhino (PCR) Not detected 06/05/21 19:19: Influenza Type A Ag Negative, Influenza Type B Ag Negative [facility] [place] HPI - General Stated complaint: sore throat, bilateral ear ache Time Seen by Provider: 06/05/21 20:04 Mode of Arrival: Ambulatory Source of Information: Patient Limitations: No Limitations Description of Symptoms (Recalled from Triage Doc. by RN): pt c/o a sore throat, ears ache, and body aches. HEENT Symptoms (Recalled from RN notes): Yes Resp Symptoms (Recalled from RN notes): No Skin Symptoms (Recalled from RN notes): No MS Symptoms (Recalled from RN notes): No Functional Status (Recalled from RN notes): wnl - History of Present Illness Provider Complaint: She states that she has felt bad for the past 2 days. She has been exposed to covid-19, influenza and strep throat. She has been having a sore throat, sinus congestion, and fatigue. She has been fully vaccinated against covid-19. She has had a flu shot also. - Related Data Home Medications Medication Instructions Recorded Confirmed Losartan Potassium [Cozaar 50mg 25 mg PO BID 10/09/20 06/03/21 Tablets] Mirtazapine [Remeron] 15 mg PO QHS 10/09/20 06/03/21 atorvastatin 10 mg tablet See Rx Instructions .ROUTE 03/07/21
[2021-06-05 20:28] LABS: Adenovirus,PCR Not Detected (NotDetected); Bordetella Pertussis Not Detected (NotDetected); Chlamydophila Pneumoniae, PCR Not Detected (NotDetected); Coronavirus 19, PCR Not Detected (NotDetected); Coronavirus 229E Not Detected (NotDetected); Coronavirus NL63 Not Detected (NotDetected); Coronavirus OC43 Not Detected (NotDetected); Coronovirus HKU1,PCR Not Detected (NotDetected); Human Metapneumovirus Not Detected (NotDetected); Influenza A, PCR Not Detected (NotDetected); Influenza AH1, 2009 Not Detected (NotDetected); Influenza AH1, PCR Not Detected (NotDetected); Influenza AH3,PCR Not Detected (NotDetected); Influenza B, PCR Not Detected (NotDetected); Mycoplasma Pneumoniae, PCR Not Detected (NotDetected); Parainfluenza 1, PCR Not Detected (NotDetected); Parainfluenza 2, PCR Not Detected (NotDetected); Parainfluenza 3, PCR Not Detected (NotDetected); Parainfluenza 4, PCR Not Detected (NotDetected); Respiratory Syncytial Virus Not Detected (NotDetected); Rhinovirus/Enterovirus Not Detected (NotDetected)
[2021-06-05 20:33] VITALS: BP 154/104; PULSE 90; RESP 16; TEMP 36.8
== END 2021-06-05 20:33 | disposition home or self-care (01) ==
PROVIDERS: Emergency Provider Nurse Practitioner Family; PCP Emergency Medicine
DX: J02.9 Acute pharyngitis, unspecified (principal); J01.90 Acute sinusitis, unspecified; I25.10 Atherosclerotic heart disease of native coronary artery without angina pectoris; E78.5 Hyperlipidemia, unspecified; I10 Essential (primary) hypertension; Z20.822 Contact with and (suspected) exposure to COVID-19
CPT/HCPCS: 87430; 87581; 87632; 87798; 87804; 99203; C9803; G0463; U0003; U0005

== ENCOUNTER 2021-06-10 11:36 | Emergency (ER) | payer OTHER, SELFPAY ==
[2021-06-10 12:50] VITALS: BP 155/92; PULSE 96; RESP 16; TEMP 36.4; O2SAT 97; BMI 45.1
--- NOTE | 2021-06-10 12:50 | XR_ITS ---
FINAL REPORT CLINICAL HISTORY: Chronic cough COMPARISON: January 26, 2020 FINDINGS: Two views of the chest were obtained. The heart size and pulmonary vascularity are within normal limits. The mediastinum is normal. No acute pulmonary abnormality is identified. There is no pneumothorax. The bony thorax is intact. IMPRESSION: No active cardiopulmonary disease. Reviewed, Interpreted and Dictated by Layo Narvaez III, MD Transcribed by Oswald Cuadra Authenticated by Layo Narvaez III, MD on 06/10/2021 01:53:54 PM [facility]
--- NOTE | 2021-06-10 12:50 | HMH.EDUTC ---
[facility] [place] Clinical Impression: Viral syndrome Otitis media Qualifiers: Otitis media type: suppurative Chronicity: acute Laterality: bilateral Recurrence: non-recurrent Spontaneous tympanic membrane rupture: without spontaneous rupture Qualified Code(s): H66.003 - Acute suppurative otitis media without spontaneous rupture of ear drum, bilateral Disposition: Home, Self-Care Condition on Discharge: Good Instructions: Middle Ear Infection, DI for Viral Syndrome Additional Instructions: Stop the steroids (medrol dose pack) and azithromycin that you are on if you haven't finished them. Start the new medications as directed. Follow up with your primary care physician. We rechecked you for covid-19 to try to find a reason that you are not getting better yet. Watch your breathing and go to the er for any worsening symptoms or concerns, especially any worsening shortness of breath. Prescriptions: Promethazine/Dextromethorphan [Promethazine-Dm Syrup] 5 ml PO Q6HP PRN #240 ml PRN Reason: Cough Transmission Status: Received by [facility] predniSONE [Deltasone 10mg tablet] 10 mg PO DAILY 9 Days #21 tab Transmission Status: Received by [facility] Cefdinir [Omnicef 300mg Capsule] 300 mg PO BID #20 cap Transmission Status: Received by [facility] Referrals: Mahesh Horton MD [Primary Care Provider] - Time of Disposition: 13:45 Medical Decision Making - Medical Records Medical records reviewed: No: I reviewed the patient's medical records. - Mark Inquiry Pt receiving controlled substance: No Vital Signs: 06/10/21 12:50 06/10/21 14:00 Temperature 97.6 F 97.6 F Temperature Source Oral Oral Pulse Rate 96 H Pulse Rate [Right Brachial] 96 H Respiratory Rate 16 16 Blood Pressure 155/92 H Blood Pressure [Right Arm] 155/92 H Blood Pressure Mean [Right Arm] 113 Blood Pressure Source Automatic Cuff Blood Pressure Source [Right Arm] Automatic Cuff 02 Sat by Pulse Oximetry 97 Oxygen Delivery Method Room Air Room Air - Lab Data Lab results reviewed: Yes: I reviewed the patient's lab results. Lab Results 06/10/21 12:48: Group A Strep Rapid Negative 06/10/21 12:51: Influenza Type A Ag Negative, Influenza Type B Ag Negative Orders (Tests/Meds): ORDERS Category Date Time Status Strep Screen Confirmation Stat Micro 06/10/21 12:48 Received [facility] [place] HPI - General Stated complaint: sore throat,cough,congestion Time Seen by Provider: 06/10/21 12:50 - History of Present Illness Provider Complaint: She states that she has heen sick for the past 5 days. She has had fever, body aches, chills, sore throat, ear pain, and she has felt bad. She tested negative for strep throat, covid, flu and other viruses on 06/05. - Related Data Home Medications Medication Instructions Recorded Confirmed Losartan Potassium [Cozaar 50mg 25 mg PO BID 10/09/20 06/03/21 Tablets] Mirtazapine [Remeron] 15 mg PO QHS 10/09/20 06/03/21 atorvastatin 10 mg tablet See Rx Instructions .ROUTE 03/07/21 06/03/21 .COMPLEX tab desvenlafaxine succinate 50 mg 50 mg PO DAILY 03/07/21 06/03/21 tablet,extended release 24 hr Ergocalciferol (Vitamin D2) See Rx Instructions .ROUTE .COMPLEX 04/24/21 06/03/21 [Drisdol] Metformin HCl [Glucophage] See Rx Instructions .ROUTE .COMPLEX 04/24/21 06/03/21 Semaglutide [Rybelsus] 3 mg PO DAILY 04/24/21 06/03/21 Spironolactone [Spironolactone See Rx Instructions .ROUTE .COMPLEX 04/24/21 06/03/21 25mg Tablet] carvediloL [Carvedilol 25mg Tab] 25 mg PO BID 04/24/21 06/03/21 hydrOXYzine pamoate [Vistaril] 25 mg PO HS 04/24/21 06/03/21 Guaifenesin/Dextromethorphan 1 tab PO Q12H 05/31/21 06/03/21 [Mucinex Dm ER 600-30 mg Tablet] predniSONE [Deltasone 20mg 20 mg PO BID 05/31/21 06/03/21 tablet] Previous Rx's Medication Instructions Recorded galcanezumab-gnlm 120 mg/mL 120 mg SQ QMONTH 30 Days #1 ml 10/15/20 subcutaneous
[2021-06-10 13:03] LABS: Strep Scrn Group A (Rapid) Negative (Negative)
[2021-06-10 13:07] LABS: UTC Influenza A Antigen Negative (Negative); UTC Influenza B Antigen Negative (Negative)
[2021-06-10 14:00] VITALS: BP 155/92; PULSE 96; RESP 16; TEMP 36.4; O2SAT 97
== END 2021-06-10 13:55 | disposition home or self-care (01) ==
PROVIDERS: Emergency Provider Nurse Practitioner Family; PCP Emergency Medicine
DX: R05.9 Cough, unspecified (principal); H66.003 Acute suppurative otitis media without spontaneous rupture of ear drum, bilateral; I25.10 Atherosclerotic heart disease of native coronary artery without angina pectoris; I10 Essential (primary) hypertension; Z79.899 Other long term (current) drug therapy
CPT/HCPCS: 71046; 87430; 87804; 99202; C9803; G0463; U0003; U0005

== ENCOUNTER → 2021-06-17 11:00 | Outpatient (POV) | payer OTHER, SELFPAY ==
[2021-06-17 11:14] VITALS: BP 181/98; PULSE 96; RESP 20; TEMP 36.6; O2SAT 96; BMI 45.1
--- NOTE | 2021-06-17 11:53 | P.CONS_ITS ---
[facility] Pain Management SOAP Note Subjective:: This patient is a very pleasant 46-year-old white female who presents today for follow-up. She is currently being treated for degenerative disc disease of lumbar spine with lumbar radiculopathy. She previously underwent a lumbar epidural steroid injection under fluoroscopy with Dr. CORRALES on May 23, 2021 at L4-L5 under fluoroscopy #1 but unfortunately she states she slipped and fell on ice the following day undergoing the injection. She states that she is unsure how much pain relief she received. Continues to experience low back pain rating into her legs at this time. She describes as a dull aching pain at baseline with sharp shooting exacerbations. She rates her pain today as an 8 out of 10. Note she was evaluated after her fall and was prescribed hydrocodone 5/325 mg twice daily for 7 days #14. Objective:: General: Alert and oriented x3, no acute distress, pleasant and cooperative Lungs: Resps E/U, symmetric chest expansion Eyes: PERRL Musculoskeletal: limited flexion and extension of the lumbar spine secondary to pain. Deep tendon reflexes were normal in bilateral lower extremities. Motor exam was grossly intact in the bilateral lower extremities, antalgic gait noted. 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 We will schedule her for the above injection to be performed in 2 to 3 weeks. [facility] #[id number] and prior drug screens were reviewed and appropriate. [facility] History Medical History: Reports:: Anxiety, Coronary Artery Disease, Depression, Hyperlipidemia, Hypertension, Kidney Stones, Migraine, MRSA Denies:: Cancer, Diabetes Mellitus Type 1, Diabetes Mellitus Type 2, Gastrointestinal Bleed, Internal Pacemaker, Seizures *Have you ever received a pneumonia vaccine?: No *Have you received a flu vaccine this season?: Yes Other Medical History: Reports: Anemia, Arthritis. Denies: Blood Transfusion Reaction Laterality Cases: Bilateral: Tonsillectomy Other Surgeries: Yes: Appendectomy, Cholecystectomy, Dilation and Curettage, Hysterectomy-Total, Hysterectomy-Partial, Tubal Ligation, Other. No: Pacemaker Amputation: No Fractures: No - *Social History Smoking Status: Never smoker # Packs/Day (cigarettes): 1 Alcohol Intake: never Alcohol Intake Frequency:: other Substance Use Type: denies use *Occupational Status:: employed Housing: house Household Members: family *Travel in the last 8 weeks: None - Psychiatric History Pschychiatric History:: Reports:: Anxiety, Depression Family Hx:: Other
== END ==
PROVIDERS: Visit Provider Anesthesiology Pain Medicine
DX: M51.16 Intervertebral disc disorders with radiculopathy, lumbar region (principal); W19.XXXA Unspecified fall, initial encounter
CPT/HCPCS: 99212; G0463

== ENCOUNTER → 2021-06-19 16:00 | Outpatient (CLI) | payer OTHER, SELFPAY ==
[2021-06-19 21:04] LABS: Barbiturates Screen,Urine Negative ng/ml (<200)
[2021-06-19 21:05] LABS: Amphetamine/Metha Screen,Urine Negative ng/ml (<1000); Benzodiazepines Screen,Urine Negative ng/ml (<200)
[2021-06-19 21:06] LABS: Cocaine Screen,Urine Negative ng/ml (<300); Methadone Screen,Urine Negative ng/ml (<300)
[2021-06-19 21:07] LABS: Cannabinoid Screen,Urine Negative ng/ml (<50)
[2021-06-19 21:08] LABS: Opiate Screen,Urine Positive ng/ml (<300); Phencyclidine Screen,Urine Negative ng/ml (<25)
== END ==
PROVIDERS: Visit Provider Nurse Practitioner Family
DX: M54.16 Radiculopathy, lumbar region (principal)
CPT/HCPCS: 80305

== ENCOUNTER 2021-07-05 11:04 | Day surgery (SDC) | payer OTHER, SELFPAY ==
[2021-07-05 11:10] VITALS: BP 135/82; BP 190/113; PULSE 114; PULSE 135; RESP 20; TEMP 36.4; O2SAT 95; O2SAT 96; BMI 43.7
[2021-07-05 11:39] VITALS: BP 137/85; PULSE 116; RESP 18; O2SAT 96
--- NOTE | 2021-07-05 11:42 | HMH.PMPROC ---
- Procedure Date: 07/05/21 Time: 11:42 Anesthesiologist:: Mahendra Hernandez MD Complications:: None Pre-procedure Diagnosis:: Degenerative disc disease of lumbar spine with lumbar radiculopathy symptoms Post-procedure Diagnosis:: Same Indications for Procedure:: Patient is a pleasant 46-year-old white female who we are treating for low back pain with lumbar radiculopathy symptoms. She had 1 lumbar epidural steroid injection however she failed the day after her injection so she could not assess efficacy of this last injection. She still has some pain in her back radiating to both legs. We will do repeat lumbar pleural steroid injection under fluoroscopy today. Procedure Details:: Informed consent was obtained and the risk and benefits of the procedure was explained to the patient. The patient was taken to the procedure room. The patient was placed prone on the procedure table. The patient was prepped and draped in sterile fashion. C-arm fluoroscopy was used to view the lumbar spine. Skin and subcutaneous tissues were anesthetized using lidocaine. I placed an 18-gauge epidural needle and advanced into the L4-L5 interspace using fluoroscopic guidance and [id number] to air. After confirmation of needle placement in the epidural space with dye I injected 2 mL of lidocaine 1.5% with Depo-Medrol 80 mg. Patient tolerated the procedure well with no complications. Plan and Disposition:: We will follow-up with her in 2 weeks. Will reevaluate symptoms at that time.
[2021-07-05 11:50] VITALS: BP 149/99; PULSE 110; RESP 20; O2SAT 96
== END 2021-07-05 11:50 | disposition home or self-care (01) ==
LOC: SC.PAINP 11:04
PROVIDERS: PCP Nurse Practitioner Family; Visit Provider Anesthesiology
DX: M51.16 Intervertebral disc disorders with radiculopathy, lumbar region (principal); I10 Essential (primary) hypertension; E78.5 Hyperlipidemia, unspecified; E11.9 Type 2 diabetes mellitus without complications; F41.9 Anxiety disorder, unspecified; F32.A Depression, unspecified; Z88.0 Allergy status to penicillin; Z88.1 Allergy status to other antibiotic agents; Z88.8 Allergy status to other drugs, medicaments and biological substances
CPT/HCPCS: 62323; J1040; Q9966

== ENCOUNTER 2021-07-11 08:48 | Emergency (ER) | payer OTHER, SELFPAY ==
[2021-07-11] VITALS (8 sets, daily range): BP systolic 63–112; BP diastolic 31–77; PULSE 66–82; RESP 16–18; TEMP 36.6; O2SAT 91–98; BMI 45.0
--- NOTE | 2021-07-11 08:51 | ECG_ITS ---
APPROVED REPORT Exam: Resting ECG HR:81 bpm ECG Measurements Heart Rate 81 AXES [place] 152 P 24 QRSd 86 QRS -12 QT 378 T 40 QTc 415 Conclusion SINUS RHYTHM VOLTAGE CRITERIA FOR LVH [MEETS CRITERIA IN ONE OF: R(aVL), S(V1), R(V5), R(V5/V6)+S(V1)] NONSPECIFIC T-WAVE ABNORMALITY ABNORMAL ECG UNCONFIRMED REPORT Electronically signed by : David Garcia MD 07/12/2021 15:04:50
--- NOTE | 2021-07-11 09:00 | PC.NURSE ---
ED MD at bedside
--- NOTE | 2021-07-11 09:04 | XR_ITS ---
FINAL REPORT CLINICAL HISTORY: cough COMPARISON: June 10, 2021 FINDINGS: SINGLE VIEW CHEST. The heart is normal in size. The mediastinum is unremarkable. The lungs are clear. There is no pneumothorax. IMPRESSION: No acute process. Reviewed, Interpreted and Dictated by Layo Narvaez III, MD Transcribed by Cely Gusman Authenticated by Layo Narvaez III, MD on 07/11/2021 10:13:47 AM [facility]
[2021-07-11 09:13] LABS: Basophils # 0.2 K/mm3 (0-0.2); Basophils % 0.9 % (0.1-2.0); Eosinophils # 0.3 K/mm3 (0.0-0.4); Eosinophils % 1.8 % (0.1-12.0); Hematocrit 42.6 % (37.0-47.0); Hemoglobin 13.3 g/dL (12.2-16.2); Lymphocytes # 4.2 K/mm3 (0.7-4.5); Lymphocytes % 26.8 % (10-50); Mean Corpuscular HGB Conc 31.2 g/dL (31.8-35.4); Mean Corpuscular Hemoglobin 31.5 pg (27.0-31.2); Mean Corpuscular Volume 100.8 fl (81-99); Mean Platelet Volume 7.6 fl (7.4-10.4); Monocytes # 0.7 K/mm3 (0.1-1.0); Monocytes % 4.7 % (1.7-9.3); Neutrophils # 10.3 K/mm3 (1.8-7.8); Neutrophils % 65.9 % (37.0-80.0); Platelet Count 426 K/mm3 (142-424); Red Blood Count 4.23 M/mm3 (4.20-5.40); Red Cell Distribution Width 13.3 % (11.5-17.5); White Blood Count 15.6 K/mm3 (4.8-10.8)
[2021-07-11 09:14] LABS: MANUAL DIFFERENTIAL MANUAL DIFFERENTIAL (MANUAL DIFF)
[2021-07-11 09:22] LABS: Alanine Aminotransferase 74 U/L (12-78); Albumin Level 4.5 g/dl (3.5-5.0); Albumin/Globulin Ratio 1.5 (1.1-1.8); Alkaline Phosphatase 66 U/L (38-126); Anion Gap 16.2 mEq/L (5-15); Aspartate Amino Transferase 53 U/L (14-36); Blood Urea Nitrogen 27 mg/dl (7-17); Calcium 8.9 mg/dl (8.4-10.2); Carbon Dioxide 24 mmol/L (22.0-30.0); Chloride 104 mmol/L (98-107); Creatinine Clearance Estimated 42 mL/min (50-200); Estimated Glomerular Filt Rate 35 ml/min (>60); GFR (African American) 42 ML/MIN (>60); Globulin 3.1 g/dL (1.3-3.2); Glucose 121 mg/dl (74-100); Potassium 4.2 mmoL/L (3.5-5.1); Sodium 140 mmol/L (136-145); Total Protein,Serum 7.6 g/dl (6.3-8.2)
[2021-07-11 09:26] LABS: Eosinophils % 1 % (0-3); Lymphocytes % 27 % (10-50); Macrocytosis 1+; Monocytes % 6 % (2-9); Neutrophils % 66 % (42-76); Platelet Estimate Normal; Total Cells Counted 100
--- NOTE | 2021-07-11 09:28 | HMH.EDDIZZ ---
ED Disposition Clinical Impression: Syncope due to orthostatic hypotension Disposition: Home, Self-Care Condition on Discharge: Good Instructions: DI for Syncope in Adults (Fainting) Referrals: Mahesh Horton MD [Primary Care Provider] - - Critical Care Critical Care Time: No Attestation: On 07/11/21, the high probability of a clinically significant, sudden or life threatening deterioration of the following system(s) required my full and direct attention, intervention and personal management. The time I documented below is in addition to time spent performing reported procedures but includes the following listed in this critical care notation. Medical Decision Making - Medical Records Medical records reviewed: Yes: I reviewed the patient's medical records. - Mark Inquiry Pt receiving controlled substance: No Vital Signs: 07/11/21 08:48 07/11/21 08:56 07/11/21 08:57 Temperature 97.8 F Temperature Source Oral Pulse Rate 82 82 Pulse Rate [Left Radial] 77 Respiratory Rate 18 18 18 Blood Pressure 72/31 L 63/43 L Blood Pressure [Right Arm] 94/77 L Blood Pressure Mean 52 46 Blood Pressure Mean [Right Arm] 82 Blood Pressure Source [Right Arm] Automatic Cuff Blood Pressure Position [Right Arm] Sitting 02 Sat by Pulse Oximetry 93 L 92 L 91 L Oxygen Delivery Method Room Air 07/11/21 09:00 07/11/21 10:00 07/11/21 10:30 Temperature Temperature Source Pulse Rate 71 66 72 Pulse Rate [Left Radial] Respiratory Rate 18 18 18 Blood Pressure 79/41 L 76/47 L 79/44 L Blood Pressure [Right Arm] Blood Pressure Mean 47 51 49 Blood Pressure Mean [Right Arm] Blood Pressure Source [Right Arm] Blood Pressure Position [Right Arm] 02 Sat by Pulse Oximetry 93 L 92 L 92 L Oxygen Delivery Method 07/11/21 11:00 Temperature Temperature Source Pulse Rate 66 Pulse Rate [Left Radial] Respiratory Rate 16 Blood Pressure 86/62 L Blood Pressure [Right Arm] Blood Pressure Mean 68 Blood Pressure Mean [Right Arm] Blood Pressure Source [Right Arm] Blood Pressure Position [Right Arm] 02 Sat by Pulse Oximetry 98 Oxygen Delivery Method - Lab Data Lab Results 07/11/21 08:55: WBC 15.6 H, RBC 4.23, Hgb 13.3, Hct 42.6, MCV 100.8 H, MCH 31.5 H, MCHC 31.2 L, RDW 13.3, Plt Count 426 H, MPV 7.6, Neut % (Auto) 65.9, Lymph % (Auto) 26.8, Tift % (Auto) 4.7, Eos % (Auto) 1.8, Baso % (Auto) 0.9, Neut # (Auto) 10.3 H, Lymph # (Auto) 4.2, Tift # (Auto) 0.7, Eos # (Auto) 0.3, Baso # (Auto) 0.2, Total Counted 100, Neutrophils % (Manual) 66, Lymphocytes % (Manual) 27, Monocytes % (Manual) 6, Eosinophils % (Manual) 1, Platelet Estimate Normal, Macrocytosis 1+ 07/11/21 08:55: Sodium 140, Potassium 4.2, Chloride 104, Carbon Dioxide 24, Anion Gap 16.2 H, BUN 27 H, Creatinine 1.60 H, Estimated Creat Clear 42, Estimated GFR 35 L, Est GFR ( Amer) 42 L, Glucose 121 H, Calcium 8.9, Total Bilirubin 1.0, AST 53 H, ALT 74, Alkaline Phosphatase 66, Troponin I < 0.01, NT-Pro-B Natriuret Pep 72.4, Total Protein 7.6, Albumin 4.5, Globulin 3.1, Albumin/Globulin Ratio 1.5, TSH 2.29 07/11/21 08:55: Acetone Level None detected 07/11/21 09:28: VBG pH 7.27 L, VBG pCO2 49.7, VBG pO2 66.3 H, VBG HCO3 22.3 L, VBG Total CO2 23.8, VBG O2 Saturation 91.7 H, VBG Base Excess -4.7 L 07/11/21 11:25: Lactate 1.1 07/11/21 12:10: Urine Color Dk yellow, Urine Appearance Sl cloudy, Urine pH 5.5, Ur Specific [place] >= 1.030, Urine Protein 1+, Urine Glucose (UA) Negative, Urine Ketones Negative, Urine Blood Negative, Urine Nitrate Negative, Urine Bilirubin Negative, Urine Urobilinogen 0.2, Ur Leukocyte Esterase Negative, Urine RBC None, Urine WBC Occasional, Ur Squamous Epith Cells 3-5, Urine Bacteria 1+ 07/11/21 12:10: Urine Opiates Screen Negative, Urine Methadone Screen Negative, Ur Barbituates Screen Negative, Ur Phencyclidine Scrn Negative, Ur Amphetamines Screen Negative, U Benzodiazepines Scrn Negative, Urine Cocaine Screen Negative,
[2021-07-11 09:35] LABS: NT Pro Brain Natriuretic Pep. 72.4 pg/mL (0-125)
[2021-07-11 09:38] LABS: Troponin I < 0.01 ng/ml (0.00-0.034)
[2021-07-11 09:48] LABS: Acetone, Serum (Rapid) None Detected (None Detect)
[2021-07-11 09:53] LABS: Thyroid Stimulating Hormone 2.29 uIU/mL (0.465-4.68)
--- NOTE | 2021-07-11 10:28 | PC.NURSE ---
Respiratory notified of venous blood gas
[2021-07-11 10:39] LABS: VBG Base Excess -4.7 mmol/L (-2.4-2.3); VBG HCO3 22.3 mmol/L (23-30); VBG Oxygen Saturation 91.7 % (50-70); VBG PCO2 49.7 mmol/L (35-51); VBG PH 7.27 mmol/L (7.31-7.41); VBG PO2 66.3 mmol/L (28-40); VBG Total CO2 23.8 mmol/L (23-27)
[2021-07-11 11:41] LABS: Lactic Acid 1.1 mmol/L (0.7-2.1)
[2021-07-11 12:22] LABS: Microscopic, Urine URINE MICROSCOPIC (MICROSCOPIC)
[2021-07-11 12:28] LABS: Appearance,Urine SL CLOUDY (Clear); Bilirubin,Urine Negative (Negative); Blood, Urine Negative (Negative); Color,Urine DK YELLOW (Yellow); Glucose,Urine (UA) Negative (Negative); Ketones,Urine Negative (Negative); Leukocyte Esterase,Urine Negative (Negative); Nitrate,Urine Negative (Negative); PH,Urine 5.5 (5.0-8.5); Protein,Urine 1+ (Negative); Specific Gravity, Urine >= 1.030 (1.005-1.030); Urobilinogen,Urine 0.2 EU/dl (0.2)
[2021-07-11 12:41] LABS: WBC,Urine Occasional #/hpf (0-3)
[2021-07-11 12:42] LABS: Bacteria,Urine 1+ /lpf
[2021-07-11 12:48] LABS: Amphetamine/Metha Screen,Urine Negative ng/ml (<1000); Barbiturates Screen,Urine Negative ng/ml (<200)
[2021-07-11 12:49] LABS: Benzodiazepines Screen,Urine Negative ng/ml (<200); Cannabinoid Screen,Urine Negative ng/ml (<50)
[2021-07-11 12:50] LABS: Cocaine Screen,Urine Negative ng/ml (<300)
[2021-07-11 12:51] LABS: Methadone Screen,Urine Negative ng/ml (<300); Opiate Screen,Urine Negative ng/ml (<300)
[2021-07-11 12:52] LABS: Phencyclidine Screen,Urine Negative ng/ml (<25)
== END 2021-07-11 13:20 | disposition home or self-care (01) ==
PROVIDERS: Emergency Provider Emergency Medicine; PCP Emergency Medicine
DX: R55 Syncope and collapse (principal); R07.9 Chest pain, unspecified; R06.02 Shortness of breath; I12.9 Hypertensive chronic kidney disease with stage 1 through stage 4 chronic kidney disease, or unspecified chronic kidney disease; N18.2 Chronic kidney disease, stage 2 (mild); I25.119 Atherosclerotic heart disease of native coronary artery with unspecified angina pectoris; M54.16 Radiculopathy, lumbar region; M19.90 Unspecified osteoarthritis, unspecified site; G43.909 Migraine, unspecified, not intractable, without status migrainosus; F41.9 Anxiety disorder, unspecified; E78.5 Hyperlipidemia, unspecified; N20.0 Calculus of kidney; F32.A Depression, unspecified; Z79.84 Long term (current) use of oral hypoglycemic drugs; Z79.899 Other long term (current) drug therapy; Z88.0 Allergy status to penicillin; Z88.1 Allergy status to other antibiotic agents; Z88.3 Allergy status to other anti-infective agents; Z88.5 Allergy status to narcotic agent; Z88.6 Allergy status to analgesic agent; Z88.8 Allergy status to other drugs, medicaments and biological substances
CPT/HCPCS: 71045; 80053; 80305; 81001; 82009; 82803; 83605; 83880; 84443; 84484; 85007; 85025; 93005; 96360; 96365; 96366; 99285

== ENCOUNTER 2021-08-26 01:24 | Emergency (ER) | payer OTHER, SELFPAY ==
[2021-08-26 01:25] VITALS: BP 95/79; PULSE 102; RESP 16; TEMP 36.8; O2SAT 98; BMI 46.3
[2021-08-26 01:39] VITALS: BP 95/79; PULSE 121; TEMP 36.8; O2SAT 96
--- NOTE | 2021-08-26 01:45 | CT_ITS ---
PROCEDURE INFORMATION: Exam: CT Abdomen And Pelvis Without Contrast Exam date and time: 08/26/2021 2:08 AM Age: 46 years old Clinical indication: Abdominal pain; Flank; Left; Prior surgery; Surgery date: 6+ months; Surgery type: Hysterectomy , appendectomy, gb; Additional info: Left flank pain, HX of kidney stones TECHNIQUE: Imaging protocol: Computed tomography of the abdomen and pelvis without contrast. Radiation optimization: All CT scans at this facility use at least one of these dose optimization techniques: automated exposure control; mA and/or kV adjustment per patient size (includes targeted exams where dose is matched to clinical indication); or iterative reconstruction. COMPARISON: CT ABDOMEN PELVIS W CON 11/07/2019 3:47 AM FINDINGS: Lungs: Lung bases are free of consolidation effusions pneumothorax or pulmonary nodules. Liver: Liver measures 24.5 cm in length. No evidence of intrahepatic biliary dilatation or focal lesions. Gallbladder and bile ducts: Status post cholecystectomy. No biliary dilatation. Pancreas: No focal lesions or inflammatory changes. No evidence of ductal dilatation, peripancreatic fluid or cystic collections identified. Spleen: Intact with no focal lesions. No splenomegaly. Punctate splenic calcifications compatible with prior granulomatous disease. Adrenal glands: Normal. No mass. Kidneys and ureters: Left-sided hydronephrosis due to a 5 x 6.3 mm calculus left proximal ureter approximately 2 cm distal to the left renal pelvis. There is bilateral nonobstructing nephrolithiasis. Stomach and bowel: Air and stool noted scattered throughout nondilated bowel loops. There is no evidence of bowel wall thickening or inflammatory changes. Appendix: No evidence of appendicitis. Intraperitoneal space: Unremarkable. No free air. No significant fluid collection. Arteries: Unremarkable. No abdominal aortic aneurysm. Lymph nodes: Unremarkable. No enlarged lymph nodes. Urinary bladder: Unremarkable as visualized. Reproductive: Absent uterus. Bones/joints: Unremarkable. No acute fracture. Soft tissues: Unremarkable. IMPRESSION: 1. Left-sided hydronephrosis due to a 5 x 6.3 mm calculus left proximal ureter approximately 2 cm distal to the left renal pelvis. 2. Bilateral nonobstructing nephrolithiasis. 3. Hepatomegaly 4. Status post cholecystectomy. 5. Status post hysterectomy.
[2021-08-26 01:47] LABS: Microscopic, Urine URINE MICROSCOPIC (MICROSCOPIC)
--- NOTE | 2021-08-26 01:49 | PC.NURSE ---
ALLERGIES REVIEWED WITH PATIENT. PT REPORTS THAT SHE HAS HAD TORADOL BEFORE AND IT DOES HELP HER PAIN WHEN SHE HAS KIDNEY STONES.
[2021-08-26 01:58] LABS: Appearance,Urine CLEAR (Clear); Bilirubin,Urine Negative (Negative); Blood, Urine 2+ (Negative); Color,Urine YELLOW (Yellow); Glucose,Urine (UA) Negative (Negative); Ketones,Urine Negative (Negative); Leukocyte Esterase,Urine Negative (Negative); Nitrate,Urine Negative (Negative); PH,Urine 5.5 (5.0-8.5); Protein,Urine Negative (Negative); Specific Gravity, Urine 1.025 (1.005-1.030); Urobilinogen,Urine 0.2 EU/dl (0.2)
[2021-08-26 01:58] LABS: Basophils # 0.2 K/mm3 (0-0.2); Basophils % 1.7 % (0.1-2.0); Eosinophils # 0.3 K/mm3 (0.0-0.4); Eosinophils % 2.1 % (0.1-12.0); Hematocrit 40.3 % (37.0-47.0); Lymphocytes # 3.7 K/mm3 (0.7-4.5); Lymphocytes % 29.3 % (10-50); Mean Corpuscular HGB Conc 32.2 g/dL (31.8-35.4); Mean Corpuscular Hemoglobin 31.3 pg (27.0-31.2); Mean Corpuscular Volume 97.2 fl (81-99); Mean Platelet Volume 7.5 fl (7.4-10.4); Monocytes # 0.4 K/mm3 (0.1-1.0); Neutrophils % 64.1 % (37.0-80.0); Platelet Count 364 K/mm3 (142-424); Red Blood Count 4.15 M/mm3 (4.20-5.40); Red Cell Distribution Width 12.7 % (11.5-17.5); White Blood Count 12.5 K/mm3 (4.8-10.8)
[2021-08-26 02:03] LABS: Amorphous Sediment,Urine Trace /lpf; Bacteria,Urine Trace /lpf
[2021-08-26 02:03] LABS: Alanine Aminotransferase 62 U/L (12-78); Albumin Level 4.6 g/dl (3.5-5.0); Albumin/Globulin Ratio 1.4 (1.1-1.8); Alkaline Phosphatase 66 U/L (38-126); Anion Gap 12.9 mEq/L (5-15); Aspartate Amino Transferase 53 U/L (14-36); Bilirubin,Total 0.9 mg/dl (0.2-1.3); Blood Urea Nitrogen 24 mg/dl (7-17); Calcium 9.1 mg/dl (8.4-10.2); Carbon Dioxide 26 mmol/L (22.0-30.0); Chloride 105 mmol/L (98-107); Creatinine Clearance Estimated 48 mL/min (50-200); Estimated Glomerular Filt Rate 41 ml/min (>60); GFR (African American) 49 ML/MIN (>60); Globulin 3.2 g/dL (1.3-3.2); Glucose 138 mg/dl (74-100); Potassium 3.9 mmoL/L (3.5-5.1); Sodium 140 mmol/L (136-145); Total Protein,Serum 7.8 g/dl (6.3-8.2)
[2021-08-26 02:08] LABS: C-Reactive Protein 6.7 mg/L (0-4)
[2021-08-26 02:21] LABS: Erythrocyte Sedimentation Rate 48 mm/hr (0-20)
[2021-08-26 02:22] LABS: Procalcitonin 0.113 ng/mL (0.0-2.0)
--- NOTE | 2021-08-26 03:23 | HMH.EDNVD ---
ED Disposition Clinical Impression: Renal colic on left side Disposition: Home, Self-Care Condition on Discharge: Good Instructions: DI for Kidney Stones Additional Instructions: use meds and call urology in am Prescriptions: Tamsulosin HCl [Flomax 0.4mg capsule] 0.4 mg PO HS #10 cap Transmission Status: Pending to [facility] Referrals: Mahesh Horton MD [Primary Care Provider] - - Critical Care Critical Care Time: No Attestation: On 08/26/21, the high probability of a clinically significant, sudden or life threatening deterioration of the following system(s) required my full and direct attention, intervention and personal management. The time I documented below is in addition to time spent performing reported procedures but includes the following listed in this critical care notation. Medical Decision Making - Medical Records Medical records reviewed: Yes: I reviewed the patient's medical records. - Mark Inquiry Pt receiving controlled substance: No Vital Signs: 08/26/21 01:25 08/26/21 01:39 Temperature 98.2 F 98.2 F Temperature Source Oral Pulse Rate 121 H Pulse Rate [Left Radial] 102 H Respiratory Rate 16 Blood Pressure 95/79 L Blood Pressure [Right Arm] 95/79 L Blood Pressure Mean [Right Arm] 84 Blood Pressure Source [Right Arm] Automatic Cuff Blood Pressure Position [Right Arm] Sitting 02 Sat by Pulse Oximetry 98 96 Oxygen Delivery Method Room Air Room Air - Lab Data Lab results reviewed: Yes: I reviewed the patient's lab results. Lab Results 08/26/21 01:33: Urine Color Yellow, Urine Appearance Clear, Urine pH 5.5, Ur Specific [place] 1.025, Urine Protein Negative, Urine Glucose (UA) Negative, Urine Ketones Negative, Urine Blood 2+, Urine Nitrate Negative, Urine Bilirubin Negative, Urine Urobilinogen 0.2, Ur Leukocyte Esterase Negative, Urine RBC 10-20, Amorphous Sediment Trace, Urine Bacteria Trace 08/26/21 01:45: WBC 12.5 H, RBC 4.15 L, Hgb 13.0, Hct 40.3, MCV 97.2, MCH 31.3 H, MCHC 32.2, RDW 12.7, Plt Count 364, MPV 7.5, Neut % (Auto) 64.1, Lymph % (Auto) 29.3, [place] % (Auto) 3.0, Eos % (Auto) 2.1, Baso % (Auto) 1.7, Neut # (Auto) 8.0 H, Lymph # (Auto) 3.7, [place] # (Auto) 0.4, Eos # (Auto) 0.3, Baso # (Auto) 0.2, ESR 48 H 08/26/21 01:45: Sodium 140, Potassium 3.9, Chloride 105, Carbon Dioxide 26, Anion Gap 12.9, BUN 24 H, Creatinine 1.40 H, Estimated Creat Clear 48, Estimated GFR 41 L, Est GFR ( Amer) 49 L, Glucose 138 H, Calcium 9.1, Total Bilirubin 0.9, AST 53 H, ALT 62, Alkaline Phosphatase 66, C-Reactive Protein 6.7 H, Total Protein 7.8, Albumin 4.6, Globulin 3.2, Albumin/Globulin Ratio 1.4, Procalcitonin 0.113 Result diagrams: 08/26/21 01:45 08/26/21 01:45 Orders (Tests/Meds): ED MEDICATIONS Generic Name Dose Route Start Last Admin Trade Name Freq PRN Reason Stop Dose Admin Lactated Ringer's 1,000 mls @ 999 mls/hr 08/26/21 02:00 08/26/21 01:52 Lactated Ringer's 1000 Ml Bag IV 08/26/21 03:00 999 mls/hr .[id number] MO[place]STO Administration Discontinued Medications Generic Name Dose Route Start Last Admin Trade Name Freq PRN Reason Stop Dose Admin Ketorolac Tromethamine 30 mg 08/26/21 01:48 08/26/21 01:52 Ketorolac 30mg/Ml Vial IV 08/26/21 01:49 30 mg ONCE ONE Administration Ondansetron HCl 4 mg 08/26/21 01:46 08/26/21 01:52 Ondansetron 4mg/2ml Vial IV 08/26/21 01:47 4 mg ONCE ONE Administration - CT Data CT Scan: Abdomen, Pelvis Time Received: 03:[address] Reviewed: Yes: I have viewed the radiologist's interpretation Preliminary Findings: Abnormal (stone lt side ) Medical Decision Narrative: has lt renal colic and stable labs and will need to see ortho Nausea/Vomiting/Diarrhea HPI - General Chief complaint: Abdominal Pain Stated complaint: Pain in left side waist line area Time Seen by Provider: 08/26/21 01:35 Mode of Arrival: Ambulatory Source of Information: Patient, Medical Record Limitati
[2021-08-26 03:52] VITALS: BP 101/56; PULSE 68; RESP 16; TEMP 36.6; O2SAT 98
== END 2021-08-26 03:54 | disposition home or self-care (01) ==
PROVIDERS: Emergency Provider Emergency Medicine; PCP Emergency Medicine
DX: N23 Unspecified renal colic (principal); R10.32 Left lower quadrant pain; I10 Essential (primary) hypertension; F41.8 Other specified anxiety disorders; E78.5 Hyperlipidemia, unspecified
CPT/HCPCS: 74176; 80053; 81001; 84145; 85025; 85651; 86140; 96365; 96375; 99284; J2405

== ENCOUNTER → 2021-08-26 14:07 | Outpatient (CLI) | payer OTHER, SELFPAY | PROVIDERS: Visit Provider Urology | DX: Z01.812 Encounter for preprocedural laboratory examination (principal); Z11.52 Encounter for screening for COVID-19; N20.0 Calculus of kidney | CPT/HCPCS: C9803; U0003; U0005 ==

== ENCOUNTER 2021-08-27 16:44 | Observation (INO) | payer OTHER, SELFPAY ==
[2021-08-26 15:39] VITALS: BMI 46.1
[2021-08-27] VITALS (25 sets, daily range): BP systolic 56–124; BP diastolic 29–93; PULSE 76–96; RESP 16–20; TEMP 36.2–43; O2SAT 76–97; BMI 48.0
--- NOTE | 2021-08-27 13:41 | HMH.ANESCL ---
[facility] Anesthesia Checklist - Patient Identification Patient Identification: Arm Band - Structural Data Admitted From: Home Planned Operative Procedure/s: Cystoscopy with Left Stent Placement Consent for Planned Operative Procedure(s) Verified: Yes Verified Documents: Surgical Consent, History and Physical - NPO Status Verified Time NPO: 00:00 - Additional verifications Anesthesia Reactions: No Hx Blood Transfusions: No Blood Transfusion Reaction: No - Airway Assessment C-Spine Mobility Assessed: Yes (mp2) TMJ Mobility Assessed: Yes Dentition: Good Dentition - Neurological Assessment Level of Consciousness: Awake, Alert - Anesthesia Plan Anesthesia Risk discussed: Yes Anesthesia Plan: Verified ASA Class: III Anesthesia Type: General [facility] History I have reviewed the patient's past medical history: Yes Medical History: Reports:: Anxiety, Coronary Artery Disease, Depression, Diabetes Mellitus Type 2, Hyperlipidemia, Hypertension, Kidney Stones, Migraine Denies:: Cancer, Diabetes Mellitus Type 1, Gastrointestinal Bleed, Internal Pacemaker, MRSA, Seizures *Have you ever received a pneumonia vaccine?: No *Have you received a flu vaccine this season?: Yes Other Medical History: Reports: Anemia, Arthritis. Denies: Blood Transfusion Reaction Anesthesia experience/problems:: nac Laterality Cases: Bilateral: Tonsillectomy Other Surgeries: Yes: No Previous Surgery, Appendectomy, Cholecystectomy, Dilation and Curettage, Hysterectomy-Total, Hysterectomy-Partial, Tubal Ligation, Ureter Stent, Other. No: Pacemaker Amputation: No Fractures: No - *Social History Last grade of school completed: High school graduate Smoking Status: Never smoker # Packs/Day (cigarettes): 1 Alcohol Intake: never Alcohol Intake Frequency:: other Substance Use Type: denies use *Occupational Status:: disabled Housing: house Household Members: family *Travel in the last 8 weeks: None - Psychiatric History Pschychiatric History:: Reports:: Anxiety, Depression Family Hx:: No significant family history
--- NOTE | 2021-08-27 15:34 | FL_ITS ---
FINAL REPORT CLINICAL HISTORY: .OR case, stone extraction with stent placement fluoro time 2:11 FINDINGS: FLUOROSCOPY IN THE OR HISTORY: Stone extraction with stent placement. FINDINGS: Fluoroscopy was provided by the radiology department for the clinical service. A single film was obtained during the procedure. Fluoroscopy time:2 minutes 11seconds. IMPRESSION: Intraoperative fluoroscopy Reviewed, Interpreted and Dictated by Can Uribe MD Transcribed by TINO Hinson Authenticated by Can Uribe MD on 08/28/2021 10:48:[address] [facility]
[2021-08-27 15:46] LABS: POC Glucose,Bedside 129 (70-110)
--- NOTE | 2021-08-27 15:46 | HMH.ANESI ---
[facility] Anesthesia Record Part I Intake, IV Amount: 1,500 Estimated blood loss (mL): 0 Urine output (mL): 0 Blood Pressure: 110/72 SaO2: 93 Pulse Rate: 82 Respiratory Rate: 16 Temperature: 97.2 F Patient is:: Drowsy, Mask O2 Stable to PACU at:: 15:35
--- NOTE | 2021-08-27 15:55 | PC.NURSE ---
Hedy Kirkland PUBLIC HEALTH AIDE at bedside, ordered Duoneb. Respiratory to bedside.
--- NOTE | 2021-08-27 16:25 | PC.NURSE ---
Aida Mitchell RN spoke with Pt's Daughter via phone to update on plans to admit. Will wait in waiting room. dental laboratory manager, working on orders.
--- NOTE | 2021-08-27 16:36 | SUR.PHASEI ---
Pt is rousing and is more awake and talking. Oxygen saturations are holding around 94% on 3L/NC. BP is still low. Hedy Kirkland [employer] SOLUTIONS ARCHITECT at bedside and has been in contact with Dr. Zavaleta and Dr. Horton PCP. Planning to admit pt to monitor BP overnight.
--- NOTE | 2021-08-27 17:13 | HMH.OPNOTE ---
Date of procedure: 08/27/21 Pre-op Diagnosis:: Left proximal ureteral stone Post-op Diagnosis:: Left distal ureteral stone Procedure performed:: Left ureteroscopy, laser lithotripsy, stone extraction, left stent placement Surgeon:: Jose Zavaleta MD CHOPPING MACHINE OPERATOR:: Carlos Kirkland Anesthesia: LMA Estimated blood loss (mL): 0 Clinical Note:: 46-year-old white female with history of nephrolithiasis with recent left renal colic. She was noted to have a left proximal ureteral stone as well as a kidney stone on recent CT scan. Plan today was to manipulate the proximal ureteral stone back into the left renal pelvis and place a stent but the stone had to come down to the distal ureter and ureteroscopy stone extraction was performed. Operative findings:: The proximal ureteral stone had migrated to the distal ureter so ureteroscopy and stone extraction was performed. Operative note:: Patient taken to the operating room after informed consent was obtained. She was placed on the operating table in the supine position general anesthesia administered. Preoperative antibiotics and sequential compression devices placed. She was then placed into the dorsal lithotomy position and prepped and draped in the standard surgical fashion. The 22 Filipino cystoscope passed into the urethra and into the bladder. The bladder was examined in a systematic fashion and no abnormalities were noted. The ureteral orifices in a normal anatomic position. A guidewire was placed into the left ureteral orifice and under fluoroscopy passed up to the renal pelvis. The stone was not noted in the proximal ureter and fluoroscopy of the entire ureter revealed a calcification in the distal ureter that was faint. I decided to proceed with ureteroscopy and stone extraction since it had migrated distally. The cystoscope removed and our semirigid ureteroscope was passed into the bladder and into the left ureter and up to the level of the stone. The stone was grasped with a 1.9 Filipino stone basket but could not be brought through the more distal ureter that was more narrow. The stone was disengaged and the laser fiber was passed through the scope and the stone broken up into 3 fragments. The basket was replaced and all the stone fragments removed. The ureteroscope then removed and the cystoscope was backloaded over the guidewire and a 6 x 24 Filipino stent was placed under fluoroscopic guidance. The string was removed and a good curl was noted proximally and distally. String was left on for later removal. Urojet placed into the urethra for comfort measures. Patient tolerated well. Condition: stable Disposition: PACU Specimens:: Stone fragments were sent for analysis Complications:: None
[2021-08-27 19:27] LABS: Basophils % 0.2 % (0.1-2.0); Eosinophils % 0.1 % (0.1-12.0); Hematocrit 33.1 % (37.0-47.0); Hemoglobin 10.8 g/dL (12.2-16.2); Lymphocytes # 0.9 K/mm3 (0.7-4.5); Lymphocytes % 5.5 % (10-50); Mean Corpuscular HGB Conc 32.6 g/dL (31.8-35.4); Mean Corpuscular Hemoglobin 31.7 pg (27.0-31.2); Mean Corpuscular Volume 97.5 fl (81-99); Mean Platelet Volume 7.1 fl (7.4-10.4); Monocytes # 0.6 K/mm3 (0.1-1.0); Monocytes % 3.6 % (1.7-9.3); Neutrophils # 14.3 K/mm3 (1.8-7.8); Neutrophils % 90.8 % (37.0-80.0); Platelet Count 212 K/mm3 (142-424); Red Cell Distribution Width 12.2 % (11.5-17.5); White Blood Count 15.7 K/mm3 (4.8-10.8)
[2021-08-27 19:32] LABS: Anion Gap 11.8 mEq/L (5-15); Blood Urea Nitrogen 30 mg/dl (7-17); Calcium 8.1 mg/dl (8.4-10.2); Carbon Dioxide 27 mmol/L (22.0-30.0); Chloride 102 mmol/L (98-107); Creatinine Clearance Estimated 32 mL/min (50-200); Estimated Glomerular Filt Rate 26 ml/min (>60); GFR (African American) 31 ML/MIN (>60); Glucose 136 mg/dl (74-100); Potassium 4.8 mmoL/L (3.5-5.1); Sodium 136 mmol/L (136-145)
[2021-08-27 19:34] LABS: MANUAL DIFFERENTIAL MANUAL DIFFERENTIAL (MANUAL DIFF)
[2021-08-27 19:52] LABS: Troponin I < 0.01 ng/ml (0.00-0.034)
--- NOTE | 2021-08-27 20:22 | PC.NURSE ---
notified MD Horton that pt requested nausea medication and pain medication but nothing ordered, will continue to monitor
[2021-08-27 23:30] LABS: Lymphocytes % 6 % (10-50); Macrocytosis 1+; Monocytes % 1 % (2-9); Neutrophils % 93 % (42-76); Platelet Estimate Normal; Total Cells Counted 100
[2021-08-28] VITALS (10 sets, daily range): BP systolic 100–134; BP diastolic 59–85; PULSE 86–102; RESP 15–20; TEMP 36.1–36.9; O2SAT 91–99; BMI 47.9
[2021-08-28 07:04] LABS: Chloride 104 mmol/L (98-107); Potassium 4.8 mmoL/L (3.5-5.1); Sodium 136 mmol/L (136-145)
--- NOTE | 2021-08-28 07:06 | P.CONPHA_ITS ---
[facility] Pharmacy VTE Monitoring - Patient Demographics Admission date: 08/27/21 Report Date: 08/28/21 Time: 07:06 Allergies/Adverse Reactions: Patient Allergies amlodipine Allergy (Intermediate, Verified 08/26/21 15:32) swelling legs and feet Penicillins [PENICILLINS] Allergy (Intermediate, Verified 08/26/21 15:32) I-RASH metoclopramide [From REGLAN] Allergy (Mild, Verified 08/26/21 15:32) NA-HALLUCINATIONS amoxicillin Allergy (Verified 08/26/21 15:32) ibuprofen Allergy (Verified 08/26/21 15:32) Nausea Height: 1.68 m Weight: 135.307 kg - VTE Risk Labs: VTE Related Lab Results Hgb 10.8 g/dL (12.2-16.2) L 08/27/21 19:13 Hct 33.1 % (37.0-47.0) L 08/27/21 19:13 Plt Count 212 K/mm3 (142-424) D 08/27/21 19:13 BUN 30 mg/dl (7-17) H 08/27/21 19:13 Creatinine 2.10 mg/dl (0.52-1.04) H D 08/27/21 19:13 Estimated Creat Clear 32 mL/min (50-200) 08/27/21 19:13 - Prophylaxis VTE Prophylaxis Ordered?: Yes Types of VTE Prophylaxis: TEDS Knee High Location of Applied Device: Bilateral Lower Extremeties
[2021-08-28 07:07] LABS: Anion Gap 12.8 mEq/L (5-15); Blood Urea Nitrogen 27 mg/dl (7-17); Calcium 8.3 mg/dl (8.4-10.2); Carbon Dioxide 24 mmol/L (22.0-30.0); Creatinine Clearance Estimated 42 mL/min (50-200); Estimated Glomerular Filt Rate 35 ml/min (>60); GFR (African American) 42 ML/MIN (>60); Glucose 190 mg/dl (74-100)
[2021-08-28 07:17] LABS: Basophils % 0.1 % (0.1-2.0); Eosinophils % 0.1 % (0.1-12.0); Hematocrit 32.2 % (37.0-47.0); Hemoglobin 10.4 g/dL (12.2-16.2); Lymphocytes % 6.8 % (10-50); Mean Corpuscular HGB Conc 32.2 g/dL (31.8-35.4); Mean Corpuscular Hemoglobin 31.1 pg (27.0-31.2); Mean Corpuscular Volume 96.5 fl (81-99); Mean Platelet Volume 7.1 fl (7.4-10.4); Monocytes # 0.6 K/mm3 (0.1-1.0); Monocytes % 4.1 % (1.7-9.3); Neutrophils # 13.2 K/mm3 (1.8-7.8); Platelet Count 226 K/mm3 (142-424); Red Blood Count 3.34 M/mm3 (4.20-5.40); Red Cell Distribution Width 12.1 % (11.5-17.5); White Blood Count 14.8 K/mm3 (4.8-10.8)
[2021-08-28 07:20] LABS: MANUAL DIFFERENTIAL MANUAL DIFFERENTIAL (MANUAL DIFF)
--- NOTE | 2021-08-28 07:49 | P.PN_ITS ---
[facility] Anesthesia Record Part II Discharge Time: 16:55 Destination: Home PACU nurse assessment reviewed?: Yes Patient Condition:: Good Anesthesia Complications:: None Swallowing reflex intact?: Yes Cyanosis?: No Blood Pressure: 124/59 Pulse Rate: 91 Temperature: 97 F Mental Status: Alert & Oriented Pain level:: 0 Nausea and/or vomitting:: None Intake, IV Amount: 0
--- NOTE | 2021-08-28 07:49 | HMH.PHAINT ---
Home medication list has been verified using the patient's PBM claim history and med-rec from recent visit with one of our providers.
[2021-08-28 07:54] LABS: Coronavirus 19, PCR Not Detected (NotDetected); Influenza A, PCR Not Detected (NotDetected); Influenza B, PCR Not Detected (NotDetected)
--- NOTE | 2021-08-28 08:48 | XR_ITS ---
FINAL REPORT CLINICAL HISTORY: cough COMPARISON: June 10, 2021 FINDINGS: The heart size is normal. The mediastinum is within normal limits. The lungs are underinflated. There is new linear atelectasis in the right middle lobe. There is mild patchy airspace opacity in the left lung base. There is no pleural effusion. There is no pneumothorax. The bony thorax is intact. IMPRESSION: Mild patchy airspace opacity in the left lung base probably due to a small focus of pneumonia. Reviewed, Interpreted and Dictated by Can Uribe MD Transcribed by Oswald Cuadra Authenticated by Can Uribe MD on 08/28/2021 10:48:[address] [facility]
[2021-08-28 09:51] LABS: Lymphocytes % 9 % (10-50); Monocytes % 5 % (2-9); Neutrophils % 86 % (42-76); Platelet Estimate Normal; RBC Morphology Normal; Total Cells Counted 100
--- NOTE | 2021-08-28 14:08 | CARE MANAGER ---
Patient O2 sat was low, [employer] was faxed order and demographics per patient choice, they will deliver portable tank to [facility] today.
--- NOTE | 2021-08-28 14:33 | HMH.HPDC ---
General - General Admission date:: 08/27/21 Discharge date: 08/28/21 *Admission Date: 08/27/21 *Chief complaint: low bp *History of present illness: this patient had urology procedure for kidney stone and had low bp which did not respond to fluids and was admitted for eval and treatment - pt has did better with fluids with bp but was noted to have cough with colored sputum - pt was requiring o2 at 2 l /min- no vomiting was reported - no tob and has no diabetes - [facility] History I have reviewed the patient's past medical history: Yes Medical History: Reports:: Anxiety, Coronary Artery Disease, Depression, Hyperlipidemia, Hypertension, Kidney Stones, Migraine Denies:: Cancer, Diabetes Mellitus Type 1, Diabetes Mellitus Type 2, Gastrointestinal Bleed, Internal Pacemaker, MRSA, Seizures *Have you ever received a pneumonia vaccine?: No *Have you received a flu vaccine this season?: Yes Other Medical History: Reports: Anemia, Arthritis. Denies: Blood Transfusion Reaction Anesthesia experience/problems:: nac Laterality Cases: Bilateral: Tonsillectomy Other Surgeries: Yes: No Previous Surgery, Appendectomy, Cholecystectomy, Dilation and Curettage, Hysterectomy-Total, Hysterectomy-Partial, Tubal Ligation, Ureter Stent, Other (tonsillectomy). No: Pacemaker Amputation: No Fractures: No - *Social History Last grade of school completed: High school graduate Smoking Status: Never smoker # Packs/Day (cigarettes): 1 Alcohol Intake: never Alcohol Intake Frequency:: other Substance Use Type: denies use *Occupational Status:: disabled Housing: house Household Members: family *Travel in the last 8 weeks: None - Psychiatric History Pschychiatric History:: Reports:: Anxiety, Depression Family Hx:: No significant family history Review of Systems - Review of Systems Review of systems:: pertinent systems reviewed and negative unless documented below - Constitutional Denies weight loss - Eyes Denies change in vision - ENT Denies headache(s) - *Cardiovascular Denies chest pain - *Respiratory Reports cough, Denies coughing up blood - *Gastrointestinal Denies abdominal pain - *Genitourinary Denies blood in urine - *Musculoskeletal Denies joint pain - Integumentary/Breasts Denies rash - *Neurologic Denies headache(s), Denies sensory deficit Exam Vital signs and Labs for Last 24 Hours: Temp Pulse Resp BP Pulse Ox 98.4 F 86 16 134/85 99 04/27/22 08:56 08/28/21 14:00 08/28/21 14:00 08/28/21 14:00 08/28/21 14:00 Laboratory Results - last 24 hr 08/27/21 15:39: POC Glucose 129 H 08/27/21 19:13: WBC 15.7 H D, RBC 3.40 L, Hgb 10.8 L, Hct 33.1 L, MCV 97.5, MCH 31.7 H, MCHC 32.6, RDW 12.2, Plt Count 212 D, MPV 7.1 L, Neut % (Auto) 90.8 H, Lymph % (Auto) 5.5 L, [place] % (Auto) 3.6, Eos % (Auto) 0.1, Baso % (Auto) 0.2, Neut # (Auto) 14.3 H, Lymph # (Auto) 0.9, [place] # (Auto) 0.6, Eos # (Auto) 0.0, Baso # (Auto) 0.0, Total Counted 100, Neutrophils % (Manual) 93 H, Lymphocytes % (Manual) 6 L, Monocytes % (Manual) 1 L, Platelet Estimate Normal, Macrocytosis 1+ 08/27/21 19:13: Sodium 136, Potassium 4.8 D, Chloride 102, Carbon Dioxide 27, Anion Gap 11.8, BUN 30 H, Creatinine 2.10 H D, Estimated Creat Clear 32, Estimated GFR 26 L, Est GFR ( Amer) 31 L D, Glucose 136 H, Calcium 8.1 L, Troponin I < 0.01 08/28/21 06:35: WBC 14.8 H, RBC 3.34 L, Hgb 10.4 L, Hct 32.2 L, MCV 96.5, MCH 31.1, MCHC 32.2, RDW 12.1, Plt Count 226, MPV 7.1 L, Neut % (Auto) 89.0 H, Lymph % (Auto) 6.8 L, [place] % (Auto) 4.1, Eos % (Auto) 0.1, Baso % (Auto) 0.1, Neut # (Auto) 13.2 H, Lymph # (Auto) 1.0, [place] # (Auto) 0.6, Eos # (Auto) 0.0, Baso # (Auto) 0.0, Total Counted 100, Neutrophils % (Manual) 86 H, Lymphocytes % (Manual) 9 L, Monocytes % (Manual) 5, Platelet Estimate Normal, RBC Morphology Normal 08/28/21 06:35: Sodium 136, Potassium 4.8, Chloride 104, Carbon Dioxide 24, Anion Gap 12.8, BUN 27 H, Creatinine 1.60 H D, Estimated Creat Clear 42, Estimated GFR
--- NOTE | 2021-08-28 15:31 | HMH.PHAINT ---
I spoke with the patient today about her medication list. Went over the new medications being sent in for the patient and also reviewed the medications that she was to continue at home. When we spoke, there were no questions or concerns. The patient was provided a copy of the medication list and informed on where she could picker packer the medications at.
[2021-09-28 21:45] LABS: Ca oxalate dihydrate 30%
[2021-09-28 21:46] LABS: Calcium phosphate 10%
[2022-01-30 10:59] LABS: POC Glucose,Bedside 97 (70-110)
== END 2021-08-28 15:37 | disposition home or self-care (01) ==
LOC: 2ND 16:51
PROVIDERS: Admitting Provider Emergency Medicine; PCP Emergency Medicine; Referring Provider Urology; Visit Provider Emergency Medicine
PROC: (CPT 52356; principal; 2021-08-27 11:30)
DX: N20.0 Calculus of kidney (principal); N20.1 Calculus of ureter; E11.9 Type 2 diabetes mellitus without complications; Z79.84 Long term (current) use of oral hypoglycemic drugs; I25.10 Atherosclerotic heart disease of native coronary artery without angina pectoris; N17.9 Acute kidney failure, unspecified; J18.9 Pneumonia, unspecified organism; I10 Essential (primary) hypertension; Z79.899 Other long term (current) drug therapy; E66.01 Morbid (severe) obesity due to excess calories; Z68.42 Body mass index [BMI] 45.0-49.9, adult; I95.89 Other hypotension; Z20.822 Contact with and (suspected) exposure to COVID-19
CPT/HCPCS: 52356; 52352; 36415; 71045; 74430; 76000; 80048; 82370; 82962; 84484; 85007; 85025; 87070; 87077; 87186; 87205; 94640; C2617; C9803; G0378; J0456; J0696; J1956; J2405; U0003; U0005

== ENCOUNTER → 2021-10-09 12:15 | Outpatient (CLI) | payer OTHER, SELFPAY ==
[2021-10-09 12:19] LABS: MANUAL DIFFERENTIAL MANUAL DIFFERENTIAL (MANUAL DIFF)
[2021-10-09 12:56] LABS: Basophils # 0.1 K/mm3 (0-0.2); Basophils % 1.2 % (0.1-2.0); Eosinophils # 0.3 K/mm3 (0.0-0.4); Eosinophils % 3.1 % (0.1-12.0); Hemoglobin 13.5 g/dL (12.2-16.2); Lymphocytes # 4.3 K/mm3 (0.7-4.5); Mean Corpuscular HGB Conc 32.8 g/dL (31.8-35.4); Mean Corpuscular Hemoglobin 31.5 pg (27.0-31.2); Mean Corpuscular Volume 95.9 fl (81-99); Mean Platelet Volume 7.1 fl (7.4-10.4); Monocytes # 0.5 K/mm3 (0.1-1.0); Monocytes % 4.5 % (1.7-9.3); Neutrophils # 5.2 K/mm3 (1.8-7.8); Neutrophils % 50.3 % (37.0-80.0); Platelet Count 407 K/mm3 (142-424); Red Blood Count 4.28 M/mm3 (4.20-5.40); Red Cell Distribution Width 12.6 % (11.5-17.5); White Blood Count 10.4 K/mm3 (4.8-10.8)
[2021-10-09 13:01] LABS: Anion Gap 17.2 mEq/L (5-15); Blood Urea Nitrogen 12 mg/dl (7-17); Calcium 10.1 mg/dl (8.4-10.2); Carbon Dioxide 20 mmol/L (22.0-30.0); Chloride 106 mmol/L (98-107); Estimated Glomerular Filt Rate 78 ml/min (>60); GFR (African American) 94 ML/MIN (>60); Glucose 137 mg/dl (74-100); Potassium 4.2 mmoL/L (3.5-5.1); Sodium 139 mmol/L (136-145)
[2021-10-09 14:27] LABS: Lymphocytes % 47 % (10-50); Monocytes % 1 % (2-9); Neutrophils % 52 % (42-76); Platelet Estimate Normal; RBC Morphology Normal; Total Cells Counted 100
== END ==
PROVIDERS: PCP Emergency Medicine; Visit Provider Urology
DX: Z01.818 Encounter for other preprocedural examination (principal); Z20.822 Contact with and (suspected) exposure to COVID-19; N20.0 Calculus of kidney
CPT/HCPCS: 36415; 80048; 85007; 85014; 85018; 85048; 85049; C9803; U0003; U0005

== ENCOUNTER 2021-10-11 06:37 | Day surgery (SDC) | payer OTHER, SELFPAY ==
[2021-10-11] VITALS (14 sets, daily range): BP systolic 91–109; BP diastolic 52–67; PULSE 71–85; RESP 16–20; TEMP 36.2–36.4; O2SAT 94–100; BMI 46.0
--- NOTE | 2021-10-11 06:44 | XR_ITS ---
FINAL REPORT CLINICAL HISTORY: pre surgery, kidney stone COMPARISON: CT dated August 26, 2021 FINDINGS: There is a nonobstructive bowel gas pattern. There are no abnormally dilated loops of small bowel. bowel gas and stool obscures the renal outlines. There are several left renal stones measuring up to 6 mm. There are no well-defined right renal stones. Postoperative changes are seen in the right abdomen. IMPRESSION: Left nephrolithiasis. Reviewed, Interpreted and Dictated by Layo Narvaez III, MD Transcribed by Oswald Cuadra Authenticated and [facility]
[2021-10-11 07:23] LABS: POC Glucose,Bedside 115 (70-110)
--- NOTE | 2021-10-11 08:39 | P.PN_ITS ---
[facility] Anesthesia Checklist - Patient Identification Patient Identification: Arm Band - Structural Data Admitted From: Home Planned Operative Procedure/s: Left ESWL Consent for Planned Operative Procedure(s) Verified: Yes Verified Documents: Surgical Consent, History and Physical - NPO Status Verified Time NPO: 00:00 - Additional verifications Anesthesia Reactions: No Hx Blood Transfusions: No Blood Transfusion Reaction: No - Airway Assessment C-Spine Mobility Assessed: Yes (mp2) TMJ Mobility Assessed: Yes Dentition: Good Dentition - Neurological Assessment Level of Consciousness: Awake, Alert - Genitourinary Assessment Voided precision farming specialist to O.R.: Yes - Anesthesia Plan Anesthesia Risk discussed: Yes Anesthesia Plan: Verified ASA Class: III Anesthesia Type: General [facility] History I have reviewed the patient's past medical history: Yes Medical History: Reports:: Anxiety, Coronary Artery Disease, Depression, Diabetes Mellitus Type 2, Hyperlipidemia, Hypertension, Kidney Stones, Migraine Denies:: Cancer, Diabetes Mellitus Type 1, Gastrointestinal Bleed, Internal Pacemaker, MRSA, Seizures *Have you ever received a pneumonia vaccine?: No *Have you received a flu vaccine this season?: Yes Other Medical History: Reports: Anemia, Arthritis. Denies: Blood Transfusion Reaction Anesthesia experience/problems:: nac Laterality Cases: Bilateral: Tonsillectomy Other Surgeries: Yes: Appendectomy, Cholecystectomy, Dilation and Curettage, Hysterectomy-Total, Hysterectomy-Partial, Tubal Ligation, Ureter Stent, Other (tonsillectomy). No: Pacemaker Amputation: No Fractures: No - *Social History Last grade of school completed: High school graduate Smoking Status: Never smoker # Packs/Day (cigarettes): 1 Alcohol Intake: never Alcohol Intake Frequency:: other Substance Use Type: denies use *Occupational Status:: unemployed Housing: house Household Members: family *Travel in the last 8 weeks: None - Psychiatric History Pschychiatric History:: Reports:: Anxiety, Depression Family Hx:: No significant family history
--- NOTE | 2021-10-11 08:40 | P.PN_ITS ---
[facility] Anesthesia Record Part I Intake, IV Amount: 700 Estimated blood loss (mL): 0 Urine output (mL): 0 Blood Pressure: 99/67 SaO2: 97 Pulse Rate: 75 Respiratory Rate: 16 Temperature: 97.5 F Patient is:: Drowsy, Stable Stable to PACU at:: 08:30
[2021-10-11 09:14] LABS: POC Glucose,Bedside 112 (70-110)
--- NOTE | 2021-10-11 11:49 | P.PN_ITS ---
[facility] Anesthesia Record Part II Discharge Time: 09:20 Destination: Surgical Day Care (OP Surgery) PACU nurse assessment reviewed?: Yes Patient Condition:: Good Anesthesia Complications:: None Swallowing reflex intact?: Yes Cyanosis?: No Blood Pressure: 95/59 Pulse Rate: 77 Temperature: 97.4 F Mental Status: Alert & Oriented Pain level:: 8 Nausea and/or vomitting:: None Intake, IV Amount: 0 Comments:: Pt educated about hypotension. Discussed with pt about not taking bp medications today and to schedule appointment with primary care or cardiology. Also discussed taking bp regularly and to return to ER if very hypotensive. Pt verbalized understanding.
--- NOTE | 2021-10-11 12:32 | HMH.OPNOTE ---
Date of procedure: 10/11/21 Pre-op Diagnosis:: Left ureteral calculi Post-op Diagnosis:: Left ureteral calculi x2 Procedure performed:: Left ESWL Surgeon:: Jose Zavaleta MD AIR POLLUTION CONTROL ENGINEER:: Carlos Kirkland Anesthesia: LMA Estimated blood loss (mL): 0 Clinical Note:: 46-year-old white female with a history of nephrolithiasis with to kidney stones in her renal pelvis. They appear to be in a nonobstructing position but she admits to left flank pain. Operative findings:: Preoperative KUB reveals 2 calcifications in the region of the left renal pelvis. ESWL was performed with apparent good fragmentation. A previously noted left upper pole stone was not visualized on fluoroscopy or her KUB today. Operative note:: Patient taken to the operating room after informed consent was obtained. He was placed on the operating table in the supine position and general anesthesia administered. Preoperative antibiotics and sequential compression devices placed. She was padded appropriately and a knee bump placed under her knees and her ankle supported. Adequate lubrication was performed of the flank area and fluoroscopy revealed 2 left renal stones. A total of 3000 shockwaves was divided between the 2 stones. There appeared to be very good fragmentation. Maximum energy level was 7. Patient tolerated well discharged to recovery in stable condition. Condition: stable Disposition: PACU Specimens:: None Complications:: None
== END 2021-10-11 10:20 | disposition home or self-care (01) ==
LOC: OR 06:39
PROVIDERS: PCP Emergency Medicine; Visit Provider Urology
PROC: (CPT 50590; principal; 2021-10-11 06:30)
DX: N13.2 Hydronephrosis with renal and ureteral calculous obstruction (principal); Z87.442 Personal history of urinary calculi
CPT/HCPCS: 50590; 74018; 82962; 96374

== ENCOUNTER 2021-10-17 12:58 | Inpatient (IN) | payer OTHER, SELFPAY ==
[2021-10-17] VITALS (34 sets, daily range): BP systolic 62–142; BP diastolic 33–100; PULSE 39–92; RESP 15–20; TEMP 36.6–36.8; O2SAT 90–98; BMI 41.3; BMI 48.6
--- NOTE | 2021-10-17 12:59 | PC.NURSE ---
pt assisted out of car to wheelchair by MICKEY Austin and NEFTALI Conway without complications. She was brought into ER by wheelchair to ED room 7 and hooked to monitor.
--- NOTE | 2021-10-17 13:05 | HMH.EDGENADL ---
ED Disposition Clinical Impression: Orthostatic hypotension Back pain Qualifiers: Back pain location: low back pain Chronicity: acute Back pain laterality: midline Sciatica presence: without sciatica Qualified Code(s): M54.50 - Low back pain, unspecified Disposition: Admitted As Inpatient Condition on Discharge: Good Referrals: Mahesh Horton MD [Primary Care Provider] - - Critical Care Critical Care Time: Yes Attestation: On 10/17/21, the high probability of a clinically significant, sudden or life threatening deterioration of the following system(s) required my full and direct attention, intervention and personal management. The time I documented below is in addition to time spent performing reported procedures but includes the following listed in this critical care notation. Total Critical Care Time: 35 Vital system(s) involved:: Circulatory Failure, Renal Failure My critical care processes included: Assessment & monitoring of V/S, Initial and Re-exams, Data Review/Interpretation, Coordinating Care, Medication Orders and management, Documentation Medical Decision Making - Medical Records Medical records reviewed: Yes: I reviewed the patient's medical records. - Mark Inquiry Pt receiving controlled substance: No Vital Signs: 10/17/21 13:00 10/17/21 14:01 10/17/21 14:04 Temperature 98 F Temperature Source Oral Pulse Rate 77 92 H Pulse Rate [Radial] 74 Respiratory Rate 20 18 Blood Pressure 81/43 L 76/38 L Blood Pressure [Right Arm] 142/100 H Blood Pressure Mean Blood Pressure Mean [Right Arm] 114 Blood Pressure Source Automatic Cuff Automatic Cuff Blood Pressure Position Sitting Sitting Blood Pressure Position [Right Arm] Sitting 02 Sat by Pulse Oximetry 98 96 92 L Oxygen Delivery Method Room Air Room Air Room Air 10/17/21 14:17 10/17/21 14:33 10/17/21 14:42 Temperature Temperature Source Pulse Rate 75 77 69 Pulse Rate [Radial] Respiratory Rate 18 Blood Pressure 77/38 L 75/46 L 74/45 L Blood Pressure [Right Arm] Blood Pressure Mean 51 Blood Pressure Mean [Right Arm] Blood Pressure Source Automatic Cuff Blood Pressure Position Sitting Sitting Blood Pressure Position [Right Arm] 02 Sat by Pulse Oximetry 90 L 95 96 Oxygen Delivery Method Room Air Room Air 10/17/21 14:45 10/17/21 14:46 10/17/21 14:55 Temperature Temperature Source Pulse Rate 69 72 68 Pulse Rate [Radial] Respiratory Rate 16 16 Blood Pressure 69/43 L 62/39 L 65/33 L Blood Pressure [Right Arm] Blood Pressure Mean 50 44 Blood Pressure Mean [Right Arm] Blood Pressure Source Automatic Cuff Blood Pressure Position Sitting Blood Pressure Position [Right Arm] 02 Sat by Pulse Oximetry 97 96 95 Oxygen Delivery Method Room Air 10/17/21 15:05 10/17/21 15:15 10/17/21 15:24 Temperature Temperature Source Pulse Rate 72 72 72 Pulse Rate [Radial] Respiratory Rate 18 18 18 Blood Pressure 81/46 L 76/45 L 85/42 L Blood Pressure [Right Arm] Blood Pressure Mean 52 54 59 Blood Pressure Mean [Right Arm] Blood Pressure Source Automatic Cuff Automatic Cuff Blood Pressure Position Sitting Sitting Blood Pressure Position [Right Arm] 02 Sat by Pulse Oximetry 96 96 98 Oxygen Delivery Method Room Air Room Air 10/17/21 15:29 10/17/21 15:31 10/17/21 15:36 Temperature Temperature Source Pulse Rate 68 74 67 Pulse Rate [Radial] Respiratory Rate 18 15 18 Blood Pressure 85/53 L 85/53 L 84/65 L Blood Pressure [Right Arm] Blood Pressure Mean 63 69 Blood Pressure Mean [Right Arm] Blood Pressure Source Automatic Cuff Blood Pressure Position Sitting Blood Pressure Position [Right Arm] 02 Sat by Pulse Oximetry 97 95 97 Oxygen Delivery Method Room Air 10/17/21 15:42 10/17/21 15:50 10/17/21 15:54 Temperature Temperature Source Pulse Rate 68 62 69 Pulse Rate [Radial] Respiratory Rate 18 18 18 Blood Pressure 75/
--- NOTE | 2021-10-17 13:18 | CT_ITS ---
FINAL REPORT TECHNIQUE: After the administration of oral and intravenous contrast, axial images were obtained through the abdomen and pelvis by computed tomography. The study was performed with techniques to keep radiation dose as low as reasonably achievable, (ALARA). Individual dose reduction techniques using automated exposure control or adjustment of mA and/or kV according to the patient's size were employed. CLINICAL HISTORY: recent procedure, low back pain FINDINGS: Abdomen: There is mild bibasilar atelectasis. There is fatty infiltration of the liver. The patient is status post cholecystectomy. There is no evidence of biliary ductal dilatation. The spleen is unremarkable. The adrenals are normal. The pancreas is unremarkable. There are several small nonobstructing renal stones. There are small bilateral renal cysts. Moderate left renal scarring is identified. The aorta is normal in caliber. There is no free fluid or adenopathy. Pelvis: The appendix is not identified. The patient is status post hysterectomy. The urinary bladder is unremarkable. There is no free fluid or adenopathy. IMPRESSION: Bilateral nephrolithiasis without hydronephrosis. Reviewed, Interpreted and Dictated by Layo Narvaez III, MD Transcribed by Zoraida Lopez Authenticated and [facility]
--- NOTE | 2021-10-17 13:38 | PC.NURSE ---
Pt ambulatory to restroom with assist by MICKEY Austin; no complications
[2021-10-17 13:43] LABS: Chloride 104 mmol/L (98-107); Potassium 4.7 mmoL/L (3.5-5.1); Sodium 138 mmol/L (136-145)
--- NOTE | 2021-10-17 13:43 | PC.NURSE ---
Pt to rad
--- NOTE | 2021-10-17 13:44 | PC.NURSE ---
pt to radiology by wheelchair with rad techs; UA sent to lab
[2021-10-17 13:46] LABS: Alanine Aminotransferase 94 U/L (12-78); Albumin Level 4.5 g/dl (3.5-5.0); Albumin/Globulin Ratio 1.4 (1.1-1.8); Alkaline Phosphatase 72 U/L (38-126); Anion Gap 17.7 mEq/L (5-15); Aspartate Amino Transferase 81 U/L (14-36); Blood Urea Nitrogen 28 mg/dl (7-17); Calcium 9.2 mg/dl (8.4-10.2); Carbon Dioxide 21 mmol/L (22.0-30.0); Creatinine Clearance Estimated 38 mL/min (50-200); Estimated Glomerular Filt Rate 27 ml/min (>60); GFR (African American) 33 ML/MIN (>60); Globulin 3.2 g/dL (1.3-3.2); Glucose 161 mg/dl (74-100); Total Protein,Serum 7.7 g/dl (6.3-8.2)
[2021-10-17 13:47] LABS: Microscopic, Urine URINE MICROSCOPIC (MICROSCOPIC)
[2021-10-17 13:49] LABS: Appearance,Urine CLEAR (Clear); Bilirubin,Urine Negative (Negative); Blood, Urine 1+ (Negative); Glucose,Urine (UA) Negative (Negative); Ketones,Urine Negative (Negative); Leukocyte Esterase,Urine Negative (Negative); Nitrate,Urine Negative (Negative); Protein,Urine TRACE (Negative); Specific Gravity, Urine >= 1.030 (1.005-1.030); Urobilinogen,Urine 0.2 EU/dl (0.2)
[2021-10-17 13:52] LABS: C-Reactive Protein 19.5 mg/L (0-4)
[2021-10-17 13:53] LABS: Color,Urine YELLOW (Yellow)
--- NOTE | 2021-10-17 13:56 | PC.NURSE ---
pt return from radiology
--- NOTE | 2021-10-17 13:56 | PC.NURSE ---
pt back from radiology by wheelchair with building energy retrofit technician
[2021-10-17 13:57] LABS: Bacteria,Urine Trace /lpf; Hyaline Casts,Urine Occasional #/lpf (0); RBC,Urine Occasional #/hpf (0-3); WBC,Urine Occasional #/hpf (0-3)
[2021-10-17 14:03] LABS: Basophils # 0.2 K/mm3 (0-0.2); Eosinophils # 0.4 K/mm3 (0.0-0.4); Hematocrit 35.3 % (37.0-47.0); Hemoglobin 11.9 g/dL (12.2-16.2); Lymphocytes # 3.7 K/mm3 (0.7-4.5); Lymphocytes % 35.8 % (10-50); Mean Corpuscular HGB Conc 33.5 g/dL (31.8-35.4); Mean Corpuscular Hemoglobin 32.5 pg (27.0-31.2); Mean Corpuscular Volume 96.8 fl (81-99); Mean Platelet Volume 8.2 fl (7.4-10.4); Monocytes # 0.5 K/mm3 (0.1-1.0); Monocytes % 4.4 % (1.7-9.3); Neutrophils # 5.6 K/mm3 (1.8-7.8); Neutrophils % 53.8 % (37.0-80.0); Platelet Count 421 K/mm3 (142-424); Red Blood Count 3.65 M/mm3 (4.20-5.40); Red Cell Distribution Width 12.7 % (11.5-17.5); White Blood Count 10.3 K/mm3 (4.8-10.8)
--- NOTE | 2021-10-17 14:08 | PC.NURSE ---
sophyrn checked pt bp manually, bp 65/doppler ER notified, second IV started, pt has IVF running at wide open rate
[2021-10-17 14:46] LABS: Erythrocyte Sedimentation Rate 136 mm/hr (0-20)
--- NOTE | 2021-10-17 15:32 | PC.NURSE ---
pt sitting up in bed, family member at BS, will continue to monitor. ER MD aware of pt bp
--- NOTE | 2021-10-17 15:44 | PC.NURSE ---
ER MD at speaking with patient regarding POC
--- NOTE | 2021-10-17 15:51 | PC.NURSE ---
NEFTALI Conway at
--- NOTE | 2021-10-17 16:00 | PC.NURSE ---
daughter at bedside, pt and family updated on plan of care
--- NOTE | 2021-10-17 16:10 | PC.NURSE ---
RACHELLE BYRNES at reassessing pt
--- NOTE | 2021-10-17 16:15 | PC.NURSE ---
Called Dr. Savage office and awaiting a call back
[2021-10-17 16:36] LABS: Coronavirus 19, PCR Not Detected (NotDetected); Influenza A, PCR Not Detected (NotDetected); Influenza B, PCR Not Detected (NotDetected)
--- NOTE | 2021-10-17 17:24 | PC.NURSE ---
Spoke with Yue in Care management regarding patient admission.
--- NOTE | 2021-10-17 18:22 | ECG_ITS ---
APPROVED REPORT Exam: Resting ECG HR:39 bpm ECG Measurements Heart Rate 39 AXES IN 143 P 58 QRSd 106 QRS 45 QT 497 T 16 QTc 421 Conclusion SINUS BRADYCARDIA LOW QRS VOLTAGE IN PRECORDIAL LEADS [QRS DEFLECTION < 1.0 mV IN CHEST UNCONFIRMED REPORT Electronically signed by : David Garcia MD 10/18/2021 15:36:08
--- NOTE | 2021-10-17 18:45 | PC.NURSE ---
report called to floor
--- NOTE | 2021-10-17 18:45 | PC.NURSE ---
pt c/o increasing pain, nausea
--- NOTE | 2021-10-17 20:01 | PC.NURSE ---
pt arrived to floor via stretcher at this time
--- NOTE | 2021-10-17 20:28 | PC.NURSE ---
pt admitted to 217 from ER, will continue to monitor pt states is not diabetic and does not need finger sticks taken, pt states is on metformin for weight loss not diabetes
--- NOTE | 2021-10-17 20:30 | PC.NURSE ---
pt on levo drip upon arrival to floor at 8mcg/min pt's bp 141/111 @ 2023, held levo drip at this time
[2021-10-17 20:34] LABS: Troponin I < 0.01 ng/ml (0.00-0.034)
--- NOTE | 2021-10-17 20:34 | PC.NURSE ---
bp 73/50, restarted levo drip at 4mcg/min
--- NOTE | 2021-10-17 22:05 | PC.NURSE ---
bp 88/45 (59), increased levo drip to 6mcg/min 2215-bp 90/42 (58)
[2021-10-18] VITALS (7 sets, daily range): BP systolic 91–149; BP diastolic 45–96; PULSE 64–86; RESP 14–19; TEMP 36.7–36.9; O2SAT 93–98; BMI 48.4
[2021-10-18 02:44] LABS: Troponin I < 0.01 ng/ml (0.00-0.034)
--- NOTE | 2021-10-18 06:20 | PC.NURSE ---
pt rested well overnight, levophed drip continues at 6mcg/min but the other VSS, pt remained on room air throughout shift, pt c/o back pain several times this shift relieved by prn pain medications, pt ambulates to and from bathroom independently, will continue to monitor
--- NOTE | 2021-10-18 07:11 | HMH.PHAVTE ---
[facility] Pharm[facility] VTE Monitoring - Patient Demographics Admission date: 10/17/21 Report Date: 10/18/21 Time: 07:11 Allergies/Adverse Reactions: Patient Allergies amlodipine Allergy (Intermediate, Verified 10/17/21 10:57) swelling legs and feet Penicillins [PENICILLINS] Allergy (Intermediate, Verified 10/17/21 10:57) I-RASH metoclopramide [From REGLAN] Allergy (Mild, Verified 10/17/21 10:57) NA-HALLUCINATIONS amoxicillin Allergy (Verified 10/17/21 10:57) ibuprofen Allergy (Verified 10/17/21 10:57) Nausea Height: 1.68 m Weight: 136.9 kg Patient Problems: Current Active Problems Orthostatic hypotension (Acute) Back pain (Acute) - VTE Risk Labs: VTE Related Lab Results Hgb 11.9 g/dL (12.2-16.2) L 10/17/21 13:30 Hct 35.3 % (37.0-47.0) L 10/17/21 13:30 Plt Count 421 K/mm3 (142-424) 10/17/21 13:30 BUN 28 mg/dl (7-17) H 10/17/21 13:30 Creatinine 2.00 mg/dl (0.52-1.04) H 10/17/21 13:30 Estimated Creat Clear 38 mL/min (50-200) 10/17/21 13:30 - Prophylaxis VTE Prophylaxis Ordered?: Yes Types of VTE Prophylaxis: TEDS Knee High Location of Applied Device: Bilateral Lower Extremeties
--- NOTE | 2021-10-18 07:37 | HMH.PHAINT ---
MEDICATION RECONCILIATION COMPLETED ON PATIENT USING EXTERNAL FILL HISTORY FROM PHARMACY AND LIST FROM PCP OFFICE. -KATY GUARDADOD
--- NOTE | 2021-10-18 09:00 | HMH.CNCARD ---
History of Present Illness Consult date: 10/18/21 Requesting physician: Mahesh Horton Consult reason: hypotension Chief complaint: Back pain, dizziness Additional Medical History:: 1. Episodic dizziness A. CNI, 06/2018, less than 20% bilaterally 2. History of chest pain A. Trevor myoview, 08/2017, no ischemia with normal EF 3. History of hypertension A. Echocardiogram, 06/2018, 1. Mildly enlarged left atrium, normal left ventricular size, mild concentric left ventricular hypertrophy, visually estimated ejection fraction 55% with no regional wall motion abnormality, diastolic parameters are inconclusive. 2. Mild aortic, mild mitral and tricuspid regurgitation. 3. No significant pericardial effusion noted B. Renal ultrasound, 09/2018, 1. No hydronephrosis. 2. Mild bilateral renal cortical thinning. 3. Possible left nephrolithiasis C. Renal Duplex, 12/2018, normal 4. Anxiety/depression 5. DM type 2 6. Nephrolitiasis, s/p lithotripsy 7. Hyperlipidemia History of present illness: 46 yo/F, hx of low back pain, states it started acting up last night, got worse today, no clear injury or precipitant. Began having numbness of the left leg, went to PCP, got shot of toradol and decadron, also took a robaxin. States she was driving home and felt like both legs were heavy and started developing tingling of the right hand. He daughter thought she may have had some mild slurred speech as well. She states the pain is midline in the low back and none of the medication seems to have helped thus far. Worse with movement and she had a hard time getting out of the car because of it. Denies urinary incontinence or retention, denies current dysuria. She did have lithotripsy done 6 days ago. No acute findings on CT. There is CHRISTOPHER which has been present before but around double pt's usual baseline. Given 2 L fluid and pain meds held due to hypotension. MAP around 50 persistently despite physical exam showing pt warm, well perfused, alert. She states this happens when she is in pain, but improves with pain medication. Discussed risks of exacerbating hypotension but will try dose of short acting medication. Either way, she does not want to be admitted to the hospital, agrees to f/u wit both her PCP and urologist this week. pt deciding she is ok with admission which I think is advisable. Ultimately, hypotension still unresolved, started levophed with improvement. Suspect CHRISTOPHER contributing to accumulation of b-panfilo which along with dehydration is compounding hypotension. Discussed with Dr. Dillon for admission. The above per ER MD. Orthostatic dizziness recently. Urine has been yellow recently despite pt stating she drinks fluids all day. Similar episode in 2019 that resolved with holding BP meds and pushing IV fluids. [facility] History Medical History: Reports:: Anxiety, Coronary Artery Disease, Depression, Diabetes Mellitus Type 2, Hyperlipidemia, Hypertension, Kidney Stones, Migraine Denies:: Cancer, Diabetes Mellitus Type 1, Gastrointestinal Bleed, Internal Pacemaker, MRSA, Seizures *Have you ever received a pneumonia vaccine?: No *Have you received a flu vaccine this season?: No Other Medical History: Reports: Anemia, Arthritis. Denies: Blood Transfusion Reaction Laterality Cases: Bilateral: Tonsillectomy Other Surgeries: Yes: No Previous Surgery, Appendectomy, Cholecystectomy, Dilation and Curettage, Hysterectomy-Total, Hysterectomy-Partial, Tubal Ligation, Ureter Stent, Other (tonsillectomy). No: Pacemaker Amputation: No Fractures: No - *Social History Smoking Status: Never smoker # Packs/Day (cigarettes): 1 Alcohol Intake: never Alcohol Intake Frequency:: other Substance Use Type: denies use *Occupational Status:: unemployed Housing: house Household Members: family *Travel in the last 8 weeks: None - Psychiatric History Pschychiatric History:: Reports:: Anxiety, Depression Family Hx:: No significant family history Meds
--- NOTE | 2021-10-18 09:35 | HMH.HP ---
*Admission Date: 10/17/21 *Chief complaint: Low back pain, weakness *History of present illness: 46 yo/F, hx of low back pain, states it started acting up last night, got worse today, no clear injury or precipitant. Began having numbness of the left leg, went to PCP, got shot of toradol and decadron, also took a robaxin. States she was driving home and felt like both legs were heavy and started developing tingling of the right hand. He daughter thought she may have had some mild slurred speech as well. She states the pain is midline in the low back and none of the medication seems to have helped thus far. Worse with movement and she had a hard time getting out of the car because of it. Denies urinary incontinence or retention, denies current dysuria. She did have lithotripsy done 6 days ago. No acute findings on CT. There is CHRISTOPHER which has been present before but around double pt's usual baseline. Given 2 L fluid and pain meds held due to hypotension. MAP around 50 persistently despite physical exam showing pt warm, well perfused, alert. She states this happens when she is in pain, but improves with pain medication. Discussed risks of exacerbating hypotension but will try dose of short acting medication. Either way, she does not want to be admitted to the hospital, agrees to f/u wit both her PCP and urologist this week. pt deciding she is ok with admission which I think is advisable. Ultimately, hypotension still unresolved, started levophed with improvement. Suspect CHRISTOPHER contributing to accumulation of b-panfilo which along with dehydration is compounding hypotension. Discussed with Dr. Dillon for admission. The above per ER MD. Orthostatic dizziness recently. Urine has been yellow recently despite pt stating she drinks fluids all day. Similar episode in 2019 that resolved with holding BP meds and pushing IV fluids (Per Dr. Bhandari). 46-year-old female patient sitting up in bed resting quietly, she reports she feels a lot better now than she did yesterday. Still reports a little dizziness when standing up. She has received 2 L of saline in the ER and a rate during the night. Has tolerated breakfast without any nausea/vomiting. Levophed is at 6 mics we will wean that off and ensure she is tolerating fluids. She denies any chest pain or shortness of breath [facility] History I have reviewed the patient's past medical history: Yes Medical History: Reports:: Anxiety, Coronary Artery Disease, Depression, Diabetes Mellitus Type 2, Hyperlipidemia, Hypertension, Kidney Stones, Migraine Denies:: Cancer, Diabetes Mellitus Type 1, Gastrointestinal Bleed, Internal Pacemaker, MRSA, Seizures *Have you ever received a pneumonia vaccine?: No *Have you received a flu vaccine this season?: No Other Medical History: Reports: Anemia, Arthritis. Denies: Blood Transfusion Reaction Laterality Cases: Bilateral: Tonsillectomy Other Surgeries: Yes: No Previous Surgery, Appendectomy, Cholecystectomy, Dilation and Curettage, Hysterectomy-Total, Hysterectomy-Partial, Tubal Ligation, Ureter Stent, Other (tonsillectomy). No: Pacemaker Amputation: No Fractures: No - *Social History Smoking Status: Never smoker # Packs/Day (cigarettes): 1 Alcohol Intake: never Alcohol Intake Frequency:: other Substance Use Type: denies use *Occupational Status:: unemployed Housing: house Household Members: family *Travel in the last 8 weeks: None - Psychiatric History Pschychiatric History:: Reports:: Anxiety, Depression Family Hx:: No significant family history Review of Systems - Review of Systems Review of systems:: pertinent systems reviewed and negative unless documented below - Constitutional Reports fatigue, Denies body ache(s) - Eyes Denies blurry vision, Denies double vision - ENT Reports dizziness, Denies nasal congestion - *Cardiovascular Denies chest pain, Denies chest pain at rest, Denies shortness of breath - *Respiratory Denies chest congestion,
--- NOTE | 2021-10-18 10:46 | PC.NURSE ---
0845- Levophed drip turned off at this time per Dr Horton orders.
--- NOTE | 2021-10-18 11:05 | PC.NURSE ---
Report given to Austin Tran RN who assumes care of patient at this time
--- NOTE | 2021-10-18 13:53 | PC.NURSE ---
Received report from Shilpa Tran. Assessed patient and no complaints noted.
--- NOTE | 2021-10-18 14:15 | ECG_ITS ---
APPROVED REPORT Exam: Resting ECG HR:71 bpm ECG Measurements Heart Rate 71 AXES TN 145 P 48 QRSd 101 QRS 21 QT 419 T 34 QTc 442 Conclusion SINUS RHYTHM LOW QRS VOLTAGE IN PRECORDIAL LEADS [QRS DEFLECTION < 1.0 mV IN CHEST LEADS] BORDERLINE ECG UNCONFIRMED REPORT Electronically signed by : David Garcia MD 10/18/2021 15:37:30
--- NOTE | 2021-10-18 14:38 | HMH.DCSUM ---
General - General Admission date:: 10/17/21 Discharge date: 10/18/21 HPI HPI: 46 yo/F, hx of low back pain, states it started acting up last night, got worse today, no clear injury or precipitant. Began having numbness of the left leg, went to PCP, got shot of toradol and decadron, also took a robaxin. States she was driving home and felt like both legs were heavy and started developing tingling of the right hand. He daughter thought she may have had some mild slurred speech as well. She states the pain is midline in the low back and none of the medication seems to have helped thus far. Worse with movement and she had a hard time getting out of the car because of it. Denies urinary incontinence or retention, denies current dysuria. She did have lithotripsy done 6 days ago. No acute findings on CT. There is CHRISTOPHER which has been present before but around double pt's usual baseline. Given 2 L fluid and pain meds held due to hypotension. MAP around 50 persistently despite physical exam showing pt warm, well perfused, alert. She states this happens when she is in pain, but improves with pain medication. Discussed risks of exacerbating hypotension but will try dose of short acting medication. Either way, she does not want to be admitted to the hospital, agrees to f/u wit both her PCP and urologist this week. pt deciding she is ok with admission which I think is advisable. Ultimately, hypotension still unresolved, started levophed with improvement. Suspect CHRISTOPHER contributing to accumulation of b-panfilo which along with dehydration is compounding hypotension. Discussed with Dr. Dillon for admission. The above per ER MD. Orthostatic dizziness recently. Urine has been yellow recently despite pt stating she drinks fluids all day. Similar episode in 2019 that resolved with holding BP meds and pushing IV fluids (Per Dr. Bhandari). 46-year-old female patient sitting up in bed resting quietly, she reports she feels a lot better now than she did yesterday. Still reports a little dizziness when standing up. She has received 2 L of saline in the ER and a rate during the night. Has tolerated breakfast without any nausea/vomiting. Levophed is at 6 mics we will wean that off and ensure she is tolerating fluids. She denies any chest pain or shortness of breath Hospital Course Hospital Course: 46 yo/F, hx of low back pain, states it started acting up last night, got worse today, no clear injury or precipitant. Began having numbness of the left leg, went to PCP, got shot of toradol and decadron, also took a robaxin. States she was driving home and felt like both legs were heavy and started developing tingling of the right hand. He daughter thought she may have had some mild slurred speech as well. She states the pain is midline in the low back and none of the medication seems to have helped thus far. Worse with movement and she had a hard time getting out of the car because of it. Denies urinary incontinence or retention, denies current dysuria. She did have lithotripsy done 6 days ago. No acute findings on CT. There is CHRISTOPHER which has been present before but around double pt's usual baseline. Given 2 L fluid and pain meds held due to hypotension. MAP around 50 persistently despite physical exam showing pt warm, well perfused, alert. She states this happens when she is in pain, but improves with pain medication. Discussed risks of exacerbating hypotension but will try dose of short acting medication. Either way, she does not want to be admitted to the hospital, agrees to f/u wit both her PCP and urologist this week. pt deciding she is ok with admission which I think is advisable. Ultimately, hypotension still unresolved, started levophed with improvement. Suspect CHRISTOPHER contributing to accumulation of b-panfilo which along with dehydration is compounding hypotension. Discussed with Dr. Dillon for admission. The above per ER MD. Howe
--- NOTE | 2021-10-18 17:33 | CA_ITS ---
APPROVED REPORT EXAM: Comprehensive 2D, Doppler, and color-flow Echocardiogram Fashion Artist: Viki Del Real RT(R) Ht: 5 ft 6 in Wt: 283lbs BSA: 2.32 BP: 94/48 mmHg Indications: hypotension, hyperlipidemia, DM, CAD, kidney stones, morbid obesity M-Mode Dimensions RVDd 3.17 cm (0.9-2.6) LA Diam 3.91 cm (1.9-4.0) LVDd 4.70 cm (3.5-5.7) Ao Diam 2.34 cm (2.0-3.7) LVDs 3.69 cm (3.5-5.7) IVSd 0.68 cm (0.6-1.1) PWd 0.96 cm (0.6-1.1) EF (Teich) 43.60% FS 21.50% EDV (Teich) 102.40 mL ESV (Teich) 57.80 mL LV Diastology E Decel Time 203.00 (160-240 msec) E/A Ratio 1.4 MED E' 12.70 (< 7 cm/sec) E'/MED E' Ratio 6.69 (>14) Mitral Valve MV E Max Moe. 85.00 (40-130 cm/s) MV A Velocity 61.00 (40-130 cm/s) E/A Ratio 1.40 MV Decel. Time 203.00 (160-240 ms) MV PHT 60.00 ms Left Ventricle Left atrium is normal size, left ventricle is normal size, estimated ejection fraction 55% with no regional wall motion abnormality, diastolic parameters are within normal range. Right Ventricle Right atrium and right ventricle are mildly enlarged with normal contractility. Aortic Valve Aortic valve is grossly normal, there is no aortic stenosis or aortic insufficiency. Mitral Valve Mitral valve is grossly normal, there is trace mitral regurgitation. Tricuspid Valve Tricuspid valve grossly normal, there is trace tricuspid regurgitation, tricuspid regurgitation jet velocity is inadequate for calculation of the right ventricular systolic pressure. Pulmonic Valve Pulmonic valve is poorly visualized. Great Vessels Aortic root is normal size. Inferior vena cava is poorly visualized. Pericardium No significant pericardial effusion noted. Conclusion 1. Normal left ventricular size preserved left ventricular systolic function, estimated ejection fraction 55% with no regional wall motion abnormality, diastolic parameters are within normal range. 2. Mildly enlarged right ventricle with normal contractility. 3. Trace mitral and tricuspid regurgitation. 4. No significant pericardial effusion noted. 5. Inferior vena cava is poorly visualized. Electronically signed by : Carl Corrigan MD 10/18/2021 14:48:24
--- NOTE | 2021-10-24 13:09 | CARE MANAGER ---
Attempted to follow up with patient r/t hospital stay but patient kept hanging up on me. NEFTALI Ruffin
== END 2021-10-18 15:37 | disposition home or self-care (01) | DRG 312 ==
LOC: ER 17:38 → 2ND 20:51
PROVIDERS: Admitting Provider Internal Medicine Adolescent Medicine; Emergency Provider Emergency Medicine; PCP Emergency Medicine; Visit Provider Emergency Medicine
DX: I95.1 Orthostatic hypotension (principal); N17.9 Acute kidney failure, unspecified; E86.0 Dehydration; M51.36 Other intervertebral disc degeneration, lumbar region; Z20.822 Contact with and (suspected) exposure to COVID-19; I25.119 Atherosclerotic heart disease of native coronary artery with unspecified angina pectoris; F32.A Depression, unspecified; F41.9 Anxiety disorder, unspecified; E11.9 Type 2 diabetes mellitus without complications; E78.5 Hyperlipidemia, unspecified; I10 Essential (primary) hypertension; D64.9 Anemia, unspecified; Z79.84 Long term (current) use of oral hypoglycemic drugs
CPT/HCPCS: 36415; 74177; 80053; 81001; 84484; 85025; 85651; 86140; 93005; 93306; 99291; C9803; J2405; Q9967; U0003; U0005

== ENCOUNTER → 2021-10-21 16:37 | Outpatient (CLI) | payer OTHER, SELFPAY ==
[2021-10-21 14:24] LABS: Anion Gap 15.2 mEq/L (5-15); Blood Urea Nitrogen 12 mg/dl (7-17); Calcium 9.8 mg/dl (8.4-10.2); Carbon Dioxide 26 mmol/L (22.0-30.0); Chloride 106 mmol/L (98-107); Estimated Glomerular Filt Rate 78 ml/min (>60); GFR (African American) 94 ML/MIN (>60); Glucose 111 mg/dl (74-100); Potassium 5.2 mmoL/L (3.5-5.1); Sodium 142 mmol/L (136-145)
== END ==
PROVIDERS: Visit Provider Physician Assistant
DX: Z78.9 Other specified health status (principal)
CPT/HCPCS: 80048

== ENCOUNTER 2021-10-29 13:41 | Emergency (ER) | payer OTHER, SELFPAY ==
[2021-10-29 14:01] VITALS: PULSE 86; RESP 16; TEMP 36.4; O2SAT 96; BMI 45.1
--- NOTE | 2021-10-29 14:10 | HMH.EDUTC ---
[facility] [place] Clinical Impression: Low back pain Qualifiers: Chronicity: acute Back pain laterality: bilateral Sciatica presence: without sciatica Qualified Code(s): M54.50 - Low back pain, unspecified Low back strain Qualifiers: Encounter type: initial encounter Qualified Code(s): S39.012A - Strain of muscle, fascia and tendon of lower back, initial encounter Disposition: Home, Self-Care Condition on Discharge: Good Instructions: Low Back Pain, DI for Low Back Pain Additional Instructions: Go home and rest. It would be best if you rested tomorrow too. No heavy lifting. No twisting. Take the oral medications as directed. The muscle relaxer (cyclobenzaprine--Flexeril) will make you drowsy, so don't drive or operate heavy machinery after taking it. Follow up with your regular doctor. GO TO THE ER FOR ANY WORSENING SYMPTOMS OR CONCERN, ESPECIALLY BOWEL OR BLADDER ISSUES, SADDLE AREA NUMBNESS, FEVER, ETC Prescriptions: Cyclobenzaprine HCl [Cyclobenzaprine 10mg Tab] 10 mg PO BIDP PRN #20 tab PRN Reason: Muscle Spasm Transmission Status: Pending to [facility] methylPREDNISolone [Medrol] 4 mg PO DIRECTED 6 Days #21 packet Transmission Status: Pending to [facility] Referrals: Mahesh Horton MD [Primary Care Provider] - Forms: Work/School Release Time of Disposition: 14:12 Medical Decision Making - Medical Records Medical records reviewed: No: I reviewed the patient's medical records. - Mark Inquiry Pt receiving controlled substance: No Vital Signs: 10/29/21 14:01 Temperature 97.6 F Temperature Source Oral Pulse Rate [Left] 86 Respiratory Rate 16 02 Sat by Pulse Oximetry 96 [facility] [place] HPI - General Stated complaint: lower back pain Time Seen by Provider: 10/29/21 14:05 Description of Symptoms (Recalled from Triage Doc. by RN): patient comes in with complaints of lower back pain. patient states that she has back pain all the time. HEENT Symptoms (Recalled from RN notes): No Resp Symptoms (Recalled from RN notes): No Skin Symptoms (Recalled from RN notes): No MS Symptoms (Recalled from RN notes): Yes Functional Status (Recalled from RN notes): wnl - History of Present Illness Provider Complaint: She states that she has been having low back pain for the past 2 days. It is worse when she bends and twist. When she lies down it is somewhat better but still present. She denies any bowel or bladder symptoms. She denies any known injury or fall. She has a history of having similar episodes in the past and she had to steroids to get them better then. - Related Data Previous Rx's Medication Instructions Recorded desvenlafaxine succinate 50 mg 50 mg PO DAILY #90 tab 10/21/21 tablet,extended release 24 hr mirtazapine 30 mg tablet 30 mg PO QHS #90 tab 10/21/21 desvenlafaxine succinate 100 mg 100 mg PO DAILY #30 tab 10/24/21 tablet,extended release 24 hr Cyclobenzaprine HCl 10 mg PO BIDP PRN #20 tab 10/29/21 [Cyclobenzaprine 10mg Tab] methylPREDNISolone [Medrol] 4 mg PO DIRECTED 6 Days #21 10/29/21 packet Allergies Allergy/AdvReac Type Severity Reaction Status Date / Time amlodipine Allergy Intermediate swelling Verified 10/29/21 14:08 legs and feet Penicillins [PENICILLINS] Allergy Intermediate I-RASH Verified 10/29/21 14:08 metoclopramide [From REGLAN] Allergy Mild NA-HALLUCIN Verified 10/29/21 14:08 ATIONS amoxicillin Allergy Verified 10/29/21 14:08 ibuprofen Allergy Nausea Verified 10/29/21 14:08 - Worker's Comp Is this a Worker's Comp case?: No [facility] History - Hepatitis A Screen Attestation statement:: This patient has been screened for Hepatitis A risk factors. I have reviewed the patient's past medical history: Yes Medical History: Reports:: Anxiety, Coronary Artery Disease, Depression, Diabetes Mellitus Type 2, Hyperlipidemia, Hypertension, Kidney Stones, Migraine Denies:: Cancer, Diabetes Mellitus Type 1, Gastr
[2021-10-29 14:13] VITALS: BP 186/102; PULSE 86; RESP 16; TEMP 36.4
== END 2021-10-29 14:16 | disposition home or self-care (01) ==
PROVIDERS: Emergency Provider Nurse Practitioner Family; PCP Emergency Medicine
DX: M54.50 Low back pain, unspecified (principal); S39.012A Strain of muscle, fascia and tendon of lower back, initial encounter
CPT/HCPCS: 99212; G0463

== ENCOUNTER 2021-10-30 01:00 | Emergency (ER) | payer OTHER, SELFPAY ==
[2021-10-30 01:02] VITALS: BP 160/103; PULSE 107; RESP 16; TEMP 36.8; O2SAT 96; BMI 45.8
--- NOTE | 2021-10-30 01:43 | HMH.EDBACK ---
ED Disposition Clinical Impression: Pain, radicular, lumbar Disposition: Home, Self-Care Condition on Discharge: Good Instructions: DI for Low Back Pain Additional Instructions: see pcp for follow up Referrals: Mahesh Horton MD [Primary Care Provider] - - Critical Care Critical Care Time: No Attestation: On 10/30/21, the high probability of a clinically significant, sudden or life threatening deterioration of the following system(s) required my full and direct attention, intervention and personal management. The time I documented below is in addition to time spent performing reported procedures but includes the following listed in this critical care notation. Medical Decision Making - Medical Records Medical records reviewed: Yes: I reviewed the patient's medical records. - Mark Inquiry Pt receiving controlled substance: No Vital Signs: 10/30/21 01:02 Temperature 98.2 F Temperature Source Oral Pulse Rate [Right] 107 H Respiratory Rate 16 Blood Pressure [Right Arm] 160/103 H Blood Pressure Mean [Right Arm] 122 02 Sat by Pulse Oximetry 96 Oxygen Delivery Method Room Air Medical Decision Narrative: will need to see pcp juan f and consider mri and adjust meds Back Pain HPI - General Chief Complaint: Back Pain/Injury Stated Complaint: Lower back pain Time Seen by Provider: 10/30/21 01:44 Mode of Arrival: Ambulatory Source of Information: Patient, Medical Record Limitations: No Limitations Description of Symptoms (Recalled from ER Triage Doc. by RN): pt states she has chronic lower back pain was seen in the [facility] yesterday and was given medications but they are not worling and the pain is a 9/10 - History of Present Illness HPI Narrative: acute exacerbation of ongoing back pain with rad to lower ext - hx of same and has no cauda equina sx - no acute fever or rash and no trauma Complaint: back pain Onset (ago): day(s) Duration: intermittent Similar Symptoms Previously: Yes Location: lumbar spine Severity: moderate Quality: sharp Radiation: left leg, right leg Exacerbating factors: movement Context: turning/twisting Associated symptoms: denies other symptoms - Related Data Previous Rx's Medication Instructions Recorded desvenlafaxine succinate 50 mg 50 mg PO DAILY #90 tab 10/21/21 tablet,extended release 24 hr mirtazapine 30 mg tablet 30 mg PO QHS #90 tab 10/21/21 desvenlafaxine succinate 100 mg 100 mg PO DAILY #30 tab 10/24/21 tablet,extended release 24 hr Cyclobenzaprine HCl 10 mg PO BIDP PRN #20 tab 10/29/21 [Cyclobenzaprine 10mg Tab] methylPREDNISolone [Medrol] 4 mg PO DIRECTED 6 Days #21 10/29/21 packet Allergies Allergy/AdvReac Type Severity Reaction Status Date / Time amlodipine Allergy Intermediate swelling Verified 10/29/21 14:08 legs and feet Penicillins [PENICILLINS] Allergy Intermediate I-RASH Verified 10/29/21 14:08 metoclopramide [From REGLAN] Allergy Mild NA-HALLUCIN Verified 10/29/21 14:08 ATIONS amoxicillin Allergy Verified 10/29/21 14:08 ibuprofen Allergy Nausea Verified 10/29/21 14:08 [facility] History - Hepatitis A Screen Attestation statement:: This patient has been screened for Hepatitis A risk factors. I have reviewed the patient's past medical history: Yes Medical History: Reports:: Anxiety, Coronary Artery Disease, Depression, Diabetes Mellitus Type 2, Hyperlipidemia, Hypertension, Kidney Stones, Migraine Denies:: Cancer, Diabetes Mellitus Type 1, Gastrointestinal Bleed, Internal Pacemaker, MRSA, Seizures Other Medical History: Reports: Anemia, Arthritis. Denies: Blood Transfusion Reaction Comment: Anxiety and Depression Laterality Cases: Bilateral: Tonsillectomy Other Surgeries: Yes: No Previous Surgery, Appendectomy, Cholecystectomy, Dilation and Curettage, Hysterectomy-Total, Hysterectomy-Partial, Tubal Ligation, Ureter Stent, Other (tonsillectomy). No: Pacemaker Amputation: No Fractures: No Comment: lithotrip
[2021-10-30 02:41] VITALS: BP 140/98; PULSE 80; RESP 16; TEMP 36.8; O2SAT 98
== END 2021-10-30 02:42 | disposition home or self-care (01) ==
PROVIDERS: Emergency Provider Emergency Medicine; PCP Emergency Medicine
DX: M54.16 Radiculopathy, lumbar region (principal); Z88.0 Allergy status to penicillin; Z88.1 Allergy status to other antibiotic agents; Z88.8 Allergy status to other drugs, medicaments and biological substances; Z79.899 Other long term (current) drug therapy; I25.10 Atherosclerotic heart disease of native coronary artery without angina pectoris; E11.9 Type 2 diabetes mellitus without complications; E78.5 Hyperlipidemia, unspecified; I10 Essential (primary) hypertension; G43.909 Migraine, unspecified, not intractable, without status migrainosus; F41.9 Anxiety disorder, unspecified; M19.90 Unspecified osteoarthritis, unspecified site
CPT/HCPCS: 96374; 96375; 99284

== ENCOUNTER → 2021-11-07 13:59 | Outpatient (CLI) | payer OTHER, SELFPAY ==
--- NOTE | 2021-11-07 14:04 | MR_ITS ---
FINAL REPORT CLINICAL HISTORY: low back pain radiating down left leg. LOW BACK PAIN FOR YEARS. NO RECENT INJURY OR TRAUMA. FINDINGS: Multiplanar MR imaging of the lumbar spine was performed without contrast. On the sagittal T2-weighted images, disc degeneration is seen at multiple levels. There is mild endplate change at L5-S1. The vertebral alignment is normal. There is no evidence of fracture. There are several hemangiomas. The conus has an unremarkable appearance. No significant canal stenosis is identified. T12-L1: There is a right foraminal extruded disc. There is moderate right neural foraminal narrowing. L1-2: There is no significant canal stenosis or neural foraminal narrowing. L2-3: An annular bulge is present. There is no significant canal stenosis or neural foraminal narrowing. L3-4: An annular bulge is present. There is a left foraminal disc protrusion. There is mild left neural foraminal narrowing. L4-5: An annular bulge is present. There is a small central disc protrusion. There is mild bilateral neural foraminal narrowing. L5-S1: An annular bulge is present. There is a left foraminal disc protrusion with left S1 nerve root compromise. There is mild right and moderate left neural foraminal narrowing. IMPRESSION: Multilevel disc protrusions without significant central canal stenosis. Right foraminal extruded disc at T12-L1. S1 nerve root compromise at L5-S1. Multilevel degenerative disc disease with areas of neural foraminal narrowing. Reviewed, Interpreted and Dictated by Layo Narvaez III, MD Transcribed by Oswald Cuadra Authenticated and [facility]
== END ==
PROVIDERS: PCP Emergency Medicine; Visit Provider Physician Assistant
DX: M54.50 Low back pain, unspecified (principal); M79.605 Pain in left leg
CPT/HCPCS: 72148; 76376

== ENCOUNTER 2021-11-19 13:35 | Emergency (ER) | payer OTHER, SELFPAY ==
[2021-11-19] VITALS (18 sets, daily range): BP systolic 149–199; BP diastolic 87–135; PULSE 81–110; RESP 18–26; TEMP 36.8; O2SAT 94–98; BMI 46.3
--- NOTE | 2021-11-19 | ECG_ITS ---
APPROVED REPORT Exam: Resting ECG HR:108 bpm ECG Measurements Heart Rate 108 AXES LA 144 P 70 QRSd 96 QRS 40 QT 339 T 23 QTc 402 Conclusion SINUS TACHYCARDIA MINIMAL ST DEPRESSION [0.025+ mV ST DEPRESSION] ABNORMAL RHYTHM ECG UNCONFIRMED REPORT Electronically signed by : David Garcia MD 11/20/2021 21:02:05
--- NOTE | 2021-11-19 14:45 | HMH.EDGENADL ---
ED Disposition Clinical Impression: Acute anxiety, Uncontrolled hypertension Disposition: Home, Self-Care Condition on Discharge: Good Prescriptions: LORazepam [Ativan 1mg tablet] 1 mg PO TIDP PRN #6 tablet PRN Reason: Anxiety Transmission Status: [facility] to [facility] Referrals: Zee Avery PA [Primary Care Provider] - - Critical Care Critical Care Time: No Attestation: On 11/19/21, the high probability of a clinically significant, sudden or life threatening deterioration of the following system(s) required my full and direct attention, intervention and personal management. The time I documented below is in addition to time spent performing reported procedures but includes the following listed in this critical care notation. Medical Decision Making - Mark Inquiry Pt receiving controlled substance: Yes Mark was queried for this patient: Yes Risks and benefits of using a controlled substance: were discussed with pt by me Vital Signs: 11/19/21 13:35 11/19/21 14:10 11/19/21 14:31 Temperature 98.3 F Temperature Source Oral Pulse Rate 108 H Pulse Rate [Left Radial] 108 H Pulse Rate [Right Brachial] 110 H Respiratory Rate 22 26 H 18 Blood Pressure 185/116 H Blood Pressure [Right Arm] 174/125 H 199/135 H Blood Pressure Mean 139 Blood Pressure Mean [Right Arm] 141 156 Blood Pressure Source Blood Pressure Source [Right Arm] Automatic Cuff Automatic Cuff Blood Pressure Position Blood Pressure Position [Right Arm] Sitting Sitting 02 Sat by Pulse Oximetry 94 L 96 96 Oxygen Delivery Method Room Air 11/19/21 14:52 11/19/21 15:01 11/19/21 15:31 Temperature Temperature Source Pulse Rate 105 H 104 H 102 H Pulse Rate [Left Radial] Pulse Rate [Right Brachial] Respiratory Rate 18 Blood Pressure 184/121 H 189/114 H 172/95 H Blood Pressure [Right Arm] Blood Pressure Mean 149 139 120 Blood Pressure Mean [Right Arm] Blood Pressure Source Blood Pressure Source [Right Arm] Blood Pressure Position Blood Pressure Position [Right Arm] 02 Sat by Pulse Oximetry 97 98 97 Oxygen Delivery Method Room Air Room Air 11/19/21 16:02 11/19/21 16:33 11/19/21 16:46 Temperature Temperature Source Pulse Rate 102 H 94 H 96 H Pulse Rate [Left Radial] Pulse Rate [Right Brachial] Respiratory Rate 18 18 Blood Pressure 195/90 H 192/124 H 190/113 H Blood Pressure [Right Arm] Blood Pressure Mean 132 135 138 Blood Pressure Mean [Right Arm] Blood Pressure Source Blood Pressure Source [Right Arm] Blood Pressure Position Blood Pressure Position [Right Arm] 02 Sat by Pulse Oximetry 98 97 98 Oxygen Delivery Method 11/19/21 17:08 11/19/21 17:25 11/19/21 17:31 Temperature Temperature Source Pulse Rate 82 84 Pulse Rate [Left Radial] Pulse Rate [Right Brachial] Respiratory Rate 18 18 Blood Pressure 190/113 H 172/111 H 149/125 H Blood Pressure [Right Arm] Blood Pressure Mean 131 133 Blood Pressure Mean [Right Arm] Blood Pressure Source Blood Pressure Source [Right Arm] Blood Pressure Position Blood Pressure Position [Right Arm] 02 Sat by Pulse Oximetry 96 97 Oxygen Delivery Method 11/19/21 17:52 11/19/21 18:01 11/19/21 18:03 Temperature Temperature Source Pulse Rate 84 84 Pulse Rate [Left Radial] Pulse Rate [Right Brachial] Respiratory Rate 18 18 Blood Pressure 170/107 H 181/115 H 181/115 H Blood Pressure [Right Arm] Blood Pressure Mean 124 132 Blood Pressure Mean [Right Arm] Blood Pressure Source Blood Pressure Source [Right Arm] Blood Pressure Position Blood Pressure Position [Right Arm] 02 Sat by Pulse Oximetry 97 97 Oxygen Delivery Method 11/19/21 18:23 11/19/21 18:31 11/19/21 19:17 Temperature 98.3 F Temperature Source Pulse Rate 82 81 81 Pulse Rate [Left Radial] Pulse Rate [Right Brachial] Respiratory Rate
--- NOTE | 2021-11-19 14:50 | PC.NURSE ---
RACHELLE BYRNES at
[2021-11-19 15:16] LABS: Basophils # 0.1 K/mm3 (0-0.2); Basophils % 0.4 % (0.1-2.0); Eosinophils # 0.5 K/mm3 (0.0-0.4); Eosinophils % 3.2 % (0.1-12.0); Hematocrit 36.8 % (37.0-47.0); Hemoglobin 12.4 g/dL (12.2-16.2); Lymphocytes # 2.5 K/mm3 (0.7-4.5); Lymphocytes % 18.1 % (10-50); Mean Corpuscular HGB Conc 33.8 g/dL (31.8-35.4); Mean Corpuscular Hemoglobin 31.2 pg (27.0-31.2); Mean Corpuscular Volume 92.2 fl (81-99); Mean Platelet Volume 6.5 fl (7.4-10.4); Monocytes # 0.6 K/mm3 (0.1-1.0); Neutrophils # 10.4 K/mm3 (1.8-7.8); Neutrophils % 74.3 % (37.0-80.0); Platelet Count 343 K/mm3 (142-424); Red Blood Count 3.99 M/mm3 (4.20-5.40); Red Cell Distribution Width 12.6 % (11.5-17.5)
[2021-11-19 15:21] LABS: Anion Gap 8.9 mEq/L (5-15); Blood Urea Nitrogen 12 mg/dl (7-17); Calcium 9.6 mg/dl (8.4-10.2); Carbon Dioxide 32 mmol/L (22.0-30.0); Chloride 101 mmol/L (98-107); Creatinine Clearance Estimated 84 mL/min (50-200); Estimated Glomerular Filt Rate 78 ml/min (>60); GFR (African American) 94 ML/MIN (>60); Glucose 89 mg/dl (74-100); Potassium 3.9 mmoL/L (3.5-5.1); Sodium 138 mmol/L (136-145)
[2021-11-19 15:39] LABS: Troponin I < 0.01 ng/ml (0.00-0.034)
--- NOTE | 2021-11-19 16:22 | PC.NURSE ---
CHECKED ON PT, PT STATES SHE IS NO BETTER AND CONTINUES TO SHAKE. WILL INFORM MD WHEN HE GETS OUT OF ANOTHER PT ROOM
--- NOTE | 2021-11-19 16:38 | PC.NURSE ---
AWARE OF PT CONDITION AND NO IMPROVEMENT, ORDERED MEDICINE PER MAR
--- NOTE | 2021-11-19 17:04 | PC.NURSE ---
pt moved from ED room 10 to ED room 7 to be placed on the laboratory monitor per ER MD request. Pt has all belongings with her. Pt was moved via ED stretcher without complications and hooked to monitor. No other needs at this time
--- NOTE | 2021-11-19 18:25 | PC.NURSE ---
Pt states that her shaking is almost gone but she is getting a DENNISON now from her bp. aware
--- NOTE | 2021-11-19 18:35 | PC.NURSE ---
lab called asking if pt needed 2nd troponin, states he isnt sure yet he will go talk to the pt at this time. Pt bp has improved at this time
--- NOTE | 2021-11-19 18:37 | PC.NURSE ---
MD at bs, updating pt about poc
== END 2021-11-19 19:17 | disposition home or self-care (01) ==
PROVIDERS: Emergency Provider Emergency Medicine; PCP Physician Assistant
DX: F43.0 Acute stress reaction (principal); I10 Essential (primary) hypertension; Z79.899 Other long term (current) drug therapy; Z88.0 Allergy status to penicillin; Z88.6 Allergy status to analgesic agent; Z88.8 Allergy status to other drugs, medicaments and biological substances; Z88.1 Allergy status to other antibiotic agents; I25.10 Atherosclerotic heart disease of native coronary artery without angina pectoris; E11.9 Type 2 diabetes mellitus without complications; E78.5 Hyperlipidemia, unspecified; G43.909 Migraine, unspecified, not intractable, without status migrainosus; M19.90 Unspecified osteoarthritis, unspecified site
CPT/HCPCS: 80048; 84484; 85025; 93005; 96374; 96375; 96376; 99284

== ENCOUNTER 2021-11-21 11:03 | Emergency (ER) | payer OTHER, SELFPAY ==
[2021-11-21 11:03] VITALS: BP 157/108; PULSE 81; RESP 18; TEMP 36.8; O2SAT 95; BMI 47.0
--- NOTE | 2021-11-21 11:21 | XR_ITS ---
FINAL REPORT CLINICAL HISTORY: fall, left elbow pain FINDINGS: LEFT ELBOW 3 views of the left elbow were obtained. There is no acute fracture or dislocation. The joint spaces are intact. There is no soft tissue abnormality. IMPRESSION: No acute bony abnormality. Reviewed, Interpreted and Dictated by Layo Narvaez III, MD Transcribed by Cely Gusman Authenticated and [facility]
--- NOTE | 2021-11-21 11:24 | HMH.EDUTC ---
[facility] [place] Disposition Clinical Impression: Left elbow contusion Qualifiers: Encounter type: initial encounter Qualified Code(s): S50.02XA - Contusion of left elbow, initial encounter Fall Qualifiers: Encounter type: initial encounter Qualified Code(s): W19.XXXA - Unspecified fall, initial encounter Disposition: Home, Self-Care Condition on Discharge: Good Instructions: DI for Elbow Pain Additional Instructions: Rest the extremity, apply ice for 15 minutes as tolerated three or four times per day, Wear the mick wrap for compression, Elevate the extremity as tolerated while you are resting. Take tylenol for pain Follow up with Dr. Andre (orthopedics). Sometimes there can be fractures that don't show up well on the first set of x-rays. So, you should follow up if you continue to have symptoms. I put in a referral but you need to call his office and schedule an appointment. Follow up with your regular doctor. GO TO THE ER FOR ANY WORSENING SYMPTOMS Referrals: Zee Avery PA [Primary Care Provider] - Michelet Andre MD [Staff Physician] - Time of Disposition: 12:33 Medical Decision Making - Medical Records Medical records reviewed: No: I reviewed the patient's medical records. - Mark Inquiry Pt receiving controlled substance: No Vital Signs: 11/21/21 11:03 11/21/21 12:43 Temperature 98.2 F 98.2 F Temperature Source Oral Oral Pulse Rate 80 Pulse Rate [Radial] 81 Respiratory Rate 18 20 Blood Pressure 157/108 H Blood Pressure [Right Arm] 157/108 H Blood Pressure Mean [Right Arm] 124 Blood Pressure Source [Right Arm] Manual Cuff/ Doppler Blood Pressure Position [Right Arm] Sitting 02 Sat by Pulse Oximetry 95 Oxygen Delivery Method Room Air Room Air - Radiology Data #1 Image(s): Elbow Image Reviewed: Yes I reviewed the patient's radiology image, Yes I have reviewed radiologist's interpretation Preliminary Findings: No Fracture Seen FINAL REPORT CLINICAL HISTORY: fall, left elbow pain FINDINGS: LEFT ELBOW 3 views of the left elbow were obtained. There is no acute fracture or dislocation. The joint spaces are intact. There is no soft tissue abnormality. IMPRESSION: No acute bony abnormality. Reviewed, Interpreted and Dictated by Layo Narvaez III, MD Transcribed by Cely Gusman Authenticated and [facility] HPI - General Stated complaint: AO 11/21/21 Elbow pain Time Seen by Provider: 11/21/21 11:24 - History of Present Illness Provider Complaint: She fell yesterday and came down on her left elbow. Since then she has had left elbow pain and swelling. She denies any other injury. - Related Data Previous Rx's Medication Instructions Recorded mirtazapine 30 mg tablet 30 mg PO QHS #90 tab 10/21/21 pregabalin 75 mg capsule 75 mg PO BID #60 cap 10/30/21 aripiprazole 5 mg tablet 5 mg PO QHS #30 tab 11/08/21 desvenlafaxine succinate 100 mg 100 mg PO DAILY #30 tab 11/08/21 tablet,extended release 24 hr tramadol 50 mg tablet 50 mg PO Q6H PRN #14 tab 11/08/21 hydrocodone 5 mg-acetaminophen 325 1 tab PO Q6H PRN #14 tab 11/15/21 mg tablet LORazepam [Ativan 1mg tablet] 1 mg PO TIDP PRN #6 tab 11/19/21 cyclobenzaprine 10 mg tablet See Rx Instructions .ROUTE 11/19/21 .COMPLEX #90 tab tizanidine 4 mg tablet See Rx Instructions .ROUTE 11/19/21 .COMPLEX #60 tab Allergies Allergy/AdvReac Type Severity Reaction Status Date / Time amlodipine Allergy Intermediate swelling Verified 11/20/21 09:45 legs and feet Penicillins [PENICILLINS] Allergy Intermediate I-RASH Verified 11/20/21 09:45 metoclopramide [From REGLAN] Allergy Mild NA-HALLUCIN Verified 11/20/21 09:45 ATIONS amoxicillin Allergy Verified 11/20/21 09:45 ibuprofen Allergy Nausea Verified 11/20/21 09:45 [facility] History - Hepatitis A Screen Attestation statement:: This patien
[2021-11-21 12:43] VITALS: BP 157/108; PULSE 80; RESP 20; TEMP 36.8; O2SAT 97
== END 2021-11-21 12:46 | disposition home or self-care (01) ==
PROVIDERS: Emergency Provider Nurse Practitioner Family; PCP Physician Assistant
DX: S50.02XA Contusion of left elbow, initial encounter (principal); W19.XXXA Unspecified fall, initial encounter
CPT/HCPCS: 29105; 73080; 99212; G0463

== ENCOUNTER → 2021-11-25 14:52 | Outpatient (CLI) | payer OTHER, SELFPAY ==
[2021-11-27 08:25] LABS: Estradiol 17.1 pg/mL (.); FSH 69.6 mIU/mL (.); LH 43.4 mIU/mL (.)
== END ==
PROVIDERS: Visit Provider Nurse Practitioner Obstetrics & Gynecology
DX: Z90.710 Acquired absence of both cervix and uterus (principal)
CPT/HCPCS: 36415; 82670; 83001; 83002

== ENCOUNTER → 2021-11-26 15:18 | Outpatient (CLI) | payer OTHER, SELFPAY ==
--- NOTE | 2021-11-26 15:22 | XR_ITS ---
FINAL REPORT CLINICAL HISTORY: NECK PAIN FINDINGS: CERVICAL SPINE Five views were obtained. There is no acute fracture. There is no malalignment. The disc spaces are preserved. Precervical soft tissues are normal. On the AP view, the mediastinum is prominent and there is deviation of the trachea to the right. IMPRESSION: No acute bony abnormality. On the AP view the mediastinum is prominent on deviation of the trachea to the right. Recommend chest radiograph. Reviewed, Interpreted and Dictated by Diane White MD Transcribed by Cely Gusman Authenticated and [facility]
== END ==
PROVIDERS: PCP Nurse Practitioner Family; Visit Provider Nurse Practitioner Family
DX: M54.2 Cervicalgia (principal)
CPT/HCPCS: 72050

== ENCOUNTER → 2021-11-28 13:08 | Outpatient (CLI) | payer OTHER, SELFPAY ==
--- NOTE | 2021-11-28 13:16 | XR_ITS ---
FINAL REPORT CLINICAL HISTORY: RIB PAIN COMPARISON: 08/28/2021 FINDINGS: PA and lateral views of the chest are obtained. The cardiac and mediastinal silhouettes are within normal limits. The lungs are clear. There is no pleural effusion, pneumothorax, or acute osseous abnormality. Although this is not a dedicated rib series, no displaced rib fracture is identified. IMPRESSION: No radiographic evidence of acute cardiac or pulmonary disease. Reviewed, Interpreted and Dictated by Diane White MD Transcribed by Danielle Alicea Authenticated and [facility]
--- NOTE | 2021-11-28 13:16 | XR_ITS ---
FINAL REPORT CLINICAL HISTORY: . FINDINGS: Thoracic spine: AP, lateral, and swimmer''s views of the thoracic spine were obtained. There is no prior exam for comparison. There is mild dextroscoliosis. There is no acute fracture. There is mild, multilevel degenerative disc disease. Vertebral body height is preserved. Paraspinal soft tissues are within normal limits. Lumbar spine: AP, lateral and oblique views of the lumbar spine were obtained. There is mild levoscoliosis. Vertebral body heights are preserved. There is multilevel degenerative disc disease, most pronounced of the lower lumbar levels. There is no acute fracture or subluxation. Prevertebral soft tissues are unremarkable. IMPRESSION: No acute osseous abnormality of the lumbar or thoracic spine. Multilevel degenerative disc disease. Reviewed, Interpreted and Dictated by Diane White MD Transcribed by Danielle Alicea Authenticated and [facility]
== END ==
PROVIDERS: PCP Nurse Practitioner Family; Visit Provider Nurse Practitioner Family
DX: R07.81 Pleurodynia (principal); M54.6 Pain in thoracic spine; M54.50 Low back pain, unspecified
CPT/HCPCS: 71046; 72084

== ENCOUNTER → 2021-12-12 08:03 | Outpatient (CLI) | payer OTHER, SELFPAY ==
[2021-12-12 09:14] LABS: Chloride 108 mmol/L (98-107); Potassium 3.8 mmoL/L (3.5-5.1); Sodium 140 mmol/L (136-145)
[2021-12-12 09:17] LABS: Alanine Aminotransferase 43 U/L (12-78); Albumin Level 4.3 g/dl (3.5-5.0); Albumin/Globulin Ratio 1.5 (1.1-1.8); Alkaline Phosphatase 114 U/L (38-126); Anion Gap 11.8 mEq/L (5-15); Aspartate Amino Transferase 35 U/L (14-36); Blood Urea Nitrogen 17 mg/dl (7-17); Calcium 9.7 mg/dl (8.4-10.2); Carbon Dioxide 24 mmol/L (22.0-30.0); Estimated Glomerular Filt Rate 78 ml/min (>60); GFR (African American) 94 ML/MIN (>60); Globulin 2.8 g/dL (1.3-3.2); Glucose 149 mg/dl (74-100); Total Protein,Serum 7.1 g/dl (6.3-8.2)
[2021-12-12 09:18] LABS: Bilirubin,Total 0.1 mg/dl (0.2-1.3)
== END ==
PROVIDERS: PCP Internal Medicine Adolescent Medicine; Visit Provider Nurse Practitioner Family
DX: I10 Essential (primary) hypertension (principal)
CPT/HCPCS: 36415; 80053

== ENCOUNTER 2021-12-21 22:48 | Emergency (ER) | payer OTHER, SELFPAY ==
[2021-12-21 23:08] VITALS: BP 155/94; PULSE 96; RESP 18; TEMP 36.7; O2SAT 97; BMI 45.7
--- NOTE | 2021-12-21 23:16 | XR_ITS ---
PROCEDURE INFORMATION: Exam: XR Chest Exam date and time: 12/21/2021 11:17 PM Age: 46 years old Clinical indication: Cough TECHNIQUE: Imaging protocol: Radiologic exam of the chest. Views: 2 views. COMPARISON: CR XR CHEST 2V 11/28/2021 1:34 PM FINDINGS: Lungs: No acute findings or consolidation. Pleural spaces: No pleural effusion. No pneumothorax. Heart/Mediastinum: No acute findings or cardiomegaly. Bones/joints: No acute findings. IMPRESSION: No acute cardiopulmonary findings.
[2021-12-21 23:27] LABS: Basophils # 0.1 K/mm3 (0-0.2); Basophils % 0.7 % (0.1-2.0); Eosinophils # 0.5 K/mm3 (0.0-0.4); Eosinophils % 3.4 % (0.1-12.0); Hematocrit 39.5 % (37.0-47.0); Hemoglobin 12.6 g/dL (12.2-16.2); Lymphocytes # 4.3 K/mm3 (0.7-4.5); Lymphocytes % 30.9 % (10-50); Mean Corpuscular HGB Conc 31.9 g/dL (31.8-35.4); Mean Corpuscular Hemoglobin 30.3 pg (27.0-31.2); Mean Platelet Volume 8.1 fl (7.4-10.4); Monocytes # 0.6 K/mm3 (0.1-1.0); Monocytes % 4.5 % (1.7-9.3); Neutrophils # 8.3 K/mm3 (1.8-7.8); Neutrophils % 60.3 % (37.0-80.0); Platelet Count 218 K/mm3 (142-424); Red Blood Count 4.16 M/mm3 (4.20-5.40); Red Cell Distribution Width 13.1 % (11.5-17.5); White Blood Count 13.8 K/mm3 (4.8-10.8)
[2021-12-21 23:29] LABS: Alanine Aminotransferase 44 U/L (12-78); Albumin Level 4.1 g/dl (3.5-5.0); Albumin/Globulin Ratio 1.2 (1.1-1.8); Alkaline Phosphatase 128 U/L (38-126); Anion Gap 9.5 mEq/L (5-15); Aspartate Amino Transferase 44 U/L (14-36); Bilirubin,Total 0.3 mg/dl (0.2-1.3); Blood Urea Nitrogen 16 mg/dl (7-17); Calcium 8.5 mg/dl (8.4-10.2); Carbon Dioxide 30 mmol/L (22.0-30.0); Chloride 102 mmol/L (98-107); Creatinine Clearance Estimated 78 mL/min (50-200); Estimated Glomerular Filt Rate 68 ml/min (>60); GFR (African American) 82 ML/MIN (>60); Globulin 3.3 g/dL (1.3-3.2); Glucose 95 mg/dl (74-100); Potassium 3.5 mmoL/L (3.5-5.1); Sodium 138 mmol/L (136-145); Total Protein,Serum 7.4 g/dl (6.3-8.2)
[2021-12-21 23:34] LABS: C-Reactive Protein 8.4 mg/L (0-4)
[2021-12-21 23:40] LABS: NT Pro Brain Natriuretic Pep. 28.1 pg/mL (0-125)
--- NOTE | 2021-12-21 23:47 | HMH.EDWEAK ---
ED Disposition Clinical Impression: Weakness Disposition: Home, Self-Care Condition on Discharge: Good Additional Instructions: see pcp for follow up Referrals: David Garcia MD [Primary Care Provider] - - Critical Care Critical Care Time: No Attestation: On 12/21/21, the high probability of a clinically significant, sudden or life threatening deterioration of the following system(s) required my full and direct attention, intervention and personal management. The time I documented below is in addition to time spent performing reported procedures but includes the following listed in this critical care notation. Medical Decision Making - Medical Records Medical records reviewed: Yes: I reviewed the patient's medical records. - Mark Inquiry Pt receiving controlled substance: No Vital Signs: 12/21/21 23:08 Temperature 98.1 F Temperature Source Oral Pulse Rate [Apical] 96 H Respiratory Rate 18 Blood Pressure [Right Arm] 155/94 H Blood Pressure Mean [Right Arm] 114 Blood Pressure Source [Right Arm] Automatic Cuff Blood Pressure Position [Right Arm] Sitting 02 Sat by Pulse Oximetry 97 Oxygen Delivery Method Room Air - Lab Data Lab results reviewed: Yes: I reviewed the patient's lab results. Lab Results 12/21/21 23:15: WBC 13.8 H, RBC 4.16 L, Hgb 12.6, Hct 39.5, MCV 95.0, MCH 30.3, MCHC 31.9, RDW 13.1, Plt Count 218, MPV 8.1, Neut % (Auto) 60.3, Lymph % (Auto) 30.9, Taliaferro % (Auto) 4.5, Eos % (Auto) 3.4, Baso % (Auto) 0.7, Neut # (Auto) 8.3 H, Lymph # (Auto) 4.3, Taliaferro # (Auto) 0.6, Eos # (Auto) 0.5 H, Baso # (Auto) 0.1, ESR 43 H 12/21/21 23:15: Sodium 138, Potassium 3.5, Chloride 102, Carbon Dioxide 30, Anion Gap 9.5, BUN 16, Creatinine 0.90, Estimated Creat Clear 78, Estimated GFR 68, Est GFR ( Amer) 82, Glucose 95, Calcium 8.5, Total Bilirubin 0.3, AST 44 H, ALT 44, Alkaline Phosphatase 128 H, C-Reactive Protein 8.4 H, NT-Pro-B Natriuret Pep 28.1, Total Protein 7.4, Albumin 4.1, Globulin 3.3 H, Albumin/Globulin Ratio 1.2, Procalcitonin 0.095 12/21/21 23:55: SARS-CoV-2 (PCR) Not detected, Influenza A Untype (PCR) Not detected, Influenza Type B (PCR) Not detected Result diagrams: 12/21/21 23:15 12/21/21 23:15 - Radiology Data #1 Image(s): Chest Image Reviewed: Yes I reviewed the patient's radiology image Preliminary Findings: Normal/NAD Medical Decision Narrative: stable exam and labs at this time Weakness HPI - General Chief complaint: Weakness Stated complaint: weak Time Seen by Provider: 12/21/21 23:47 Mode of Arrival: Ambulatory Source of Information: Patient, Medical Record Limitations: No Limitations Description of Symptoms (Recalled from ER Triage Doc. by RN): Pt states she saw two days ago for feet swelling and was given a rx for lasix, which she has since been taking bid. Pt states that the day after she was seen by cardiology she began to have a feeling of fatigue in her legs which has since spread throughout her body. Denies any injury or recent illness. States she did have a slight cough yesterday but it has since resolved. - History of Present Illness HPI Narrative: has general feeling of fatigue genesis lower ext with sl cough - no vomiting or diarrhea MD Complaint: generalized weakness Onset (ago): day(s) Duration: intermittent Location: generalized Migration: none Quality: tingling Associated symptoms: denies other symptoms - Related Data Home Medications Medication Instructions Recorded Confirmed losartan 50 mg tablet 100 mg PO DAILY tab 12/19/21 12/22/21 nifedipine 60 mg tablet,extended 60 mg PO DAILY tab 12/19/21 12/22/21 release 24 hr Bumetanide 1 mg PO BID 12/22/21 12/22/21 Buspirone HCl [Buspar 10mg 10 mg PO BID 12/22/21 12/22/21 tablet] Desvenlafaxine Succinate 100 mg PO DAILY 12/22/21 12/22/21 [Desvenlafaxine Succinate ER] Pregabalin 75 mg PO BID 12/22/21 12/22/21 estradioL [Carmen] 1 patch TP .COMPLEX 12/22/21 12/22/21
[2021-12-21 23:48] LABS: Procalcitonin 0.095 ng/mL (0.0-2.0)
[2021-12-21 23:51] LABS: Erythrocyte Sedimentation Rate 43 mm/hr (0-20)
[2021-12-22 00:05] LABS: Coronavirus 19, PCR Not Detected (NotDetected); Influenza A, PCR Not Detected (NotDetected); Influenza B, PCR Not Detected (NotDetected)
[2021-12-22 01:02] VITALS: BP 160/95; PULSE 78; RESP 18; TEMP 36.6; O2SAT 99
== END 2021-12-22 01:03 | disposition home or self-care (01) ==
PROVIDERS: Emergency Provider Emergency Medicine; PCP Internal Medicine Adolescent Medicine
DX: R53.1 Weakness (principal); Z20.822 Contact with and (suspected) exposure to COVID-19
CPT/HCPCS: 71046; 80053; 83880; 84145; 85025; 85651; 86140; 99283; C9803; U0003; U0005

== ENCOUNTER 2021-12-27 18:18 | Emergency (ER) | payer OTHER, SELFPAY ==
--- NOTE | 2021-12-27 19:47 | EXP.UTC ---
Discharge Plan Disposition Patient Disposition: Home, Self-Care Condition: Good Prescriptions Prescriptions: New furosemide 20 mg tablet 20 mg PO BID Qty: 14 0RF No Action mirtazapine 30 mg tablet 30 mg PO QHS Qty: 90 3RF valsartan-hydrochlorothiazide [Diovan HCT] 320-25 mg tablet 1 tab PO DAILY Qty: 30 5RF carvedilol [Coreg] 25 mg tablet 50 mg PO BID Qty: 120 2RF Rx Instructions: give with food (meal/snack) estradiol 1 EACH patch semiweekly 1 patch TP .COMPLEX Rx Instructions: 1 patch topical Twice weekly; pregabalin 75 MG capsule 75 mg PO BID desvenlafaxine succinate 100 MG tablet extended release 24 hr 100 mg PO DAILY buspirone 10 MG tablet 10 mg PO BID Referrals Referrals: David Garcia MD [Primary Care Provider] - Enter time for follow up Activity Restrictions/Add. Instructions Additional Instructions/Restrictions: Take tylenol for pain. Take the medications as directed. Follow up with your regular doctor. Try to keep your feet elevated as much time as possible for the next few days. GO TO THE ER FOR ANY WORSENING SYMPTOMS Clinical Impressions Clinical Impression: Hypertension, Dependent edema Instructions Patient Instructions: Furosemide, Edema Discharge ED Provider: Garry Parry [facility] General Stated complaint: bilateral leg/ankle swelling, weakness Time Seen by Provider: 12/27/21 19:47 History of Present Illness Provider Complaint: She has been having worsening lower extremity swelling for the past 1 week. She was started on procardia for high blood pressure before her swelling started. Her pcp stopped the procardia and tried to start her on HCTZ, but she has not started the hctz. Related Data Home Medications Medication Instructions Recorded Confirmed buspirone 10 mg tablet 10 mg PO BID Depression 12/22/21 12/26/21 desvenlafaxine succinate 100 mg 100 mg PO DAILY Depression 12/22/21 12/26/21 tablet,extended release 24 hr estradiol 0.1 mg/24 hr semiweekly 1 patch topical .COMPLEX estrogen 12/22/21 12/26/21 transdermal patch supplement pregabalin 75 mg capsule 75 mg PO BID nerve pain 12/22/21 12/26/21 Previous Rx's Medication Instructions Recorded mirtazapine 30 mg tablet 30 mg PO QHS SLEEP #90 tabs 12/04/21 carvedilol 25 mg tablet (Coreg) 50 mg PO BID #120 tabs 12/26/21 valsartan 320 1 tab PO DAILY #30 tabs 12/26/21 mg-hydrochlorothiazide 25 mg tablet (Diovan HCT) furosemide 20 mg tablet 20 mg PO BID edema #14 tabs 12/27/21 Allergies Allergy/AdvReac Type Severity Reaction Status Date / Time amlodipine Allergy Intermediate swelling Verified 12/27/21 20:02 legs and feet Penicillins [PENICILLINS] Allergy Intermediate I-RASH Verified 12/27/21 20:02 metoclopramide [From REGLAN] Allergy Mild NA-HALLUCIN Verified 12/27/21 20:02 ATIONS amoxicillin Allergy Verified 12/27/21 20:02 ibuprofen Allergy Nausea Verified 12/27/21 20:02 [facility] Medical History Carotid artery disease Chest pain CKD (chronic kidney disease) stage 2, GFR 60-89 ml/min Daytime somnolence Dyspnea Facet arthropathy, lumbar Foot pain Lumbar radiculopathy Malignant essential hypertension Migraine Other forms of angina pectoris Radiculopathy due to lumbar intervertebral disc disorder Snoring SOB (shortness of breath) Swelling Witnessed apneic spells Social History Smoking Status: Never smoker second hand exposure: Yes alcohol intake: never substance use type: denies use current occupational status: unemployed household members: family housing: house number of children: 4 current occupational exposures/hazards: No caffeine: Yes ROS Obtained: Yes All systems reviewed & no additional complaints except as documented Constitutional Constitutional: Reports system r
[2021-12-27 19:59] VITALS: BP 185/103; PULSE 123; RESP 20; TEMP 36.9; O2SAT 98; BMI 46.7
[2021-12-27 20:28] VITALS: BP 185/103; PULSE 123; RESP 20; TEMP 36.9
== END 2021-12-27 20:30 | disposition home or self-care (01) ==
PROVIDERS: Emergency Provider Nurse Practitioner Family; PCP Internal Medicine Adolescent Medicine
DX: R60.0 Localized edema (principal); M54.16 Radiculopathy, lumbar region; R06.02 Shortness of breath; I12.9 Hypertensive chronic kidney disease with stage 1 through stage 4 chronic kidney disease, or unspecified chronic kidney disease; N18.2 Chronic kidney disease, stage 2 (mild); I25.119 Atherosclerotic heart disease of native coronary artery with unspecified angina pectoris; G43.909 Migraine, unspecified, not intractable, without status migrainosus; Z79.890 Hormone replacement therapy; Z79.899 Other long term (current) drug therapy; Z88.0 Allergy status to penicillin; Z88.1 Allergy status to other antibiotic agents; Z88.3 Allergy status to other anti-infective agents; Z88.6 Allergy status to analgesic agent; Z88.8 Allergy status to other drugs, medicaments and biological substances
CPT/HCPCS: 99213; G0463

== ENCOUNTER 2022-05-15 12:50 | Emergency (ER) | payer OTHER, SELFPAY ==
[2022-05-15 13:02] VITALS: BP 121/99; PULSE 96; RESP 18; TEMP 36.7; O2SAT 95; BMI 45.1
--- NOTE | 2022-05-15 13:42 | HMH.EDGENADL ---
Discharge Plan Disposition Patient Disposition: Home, Self-Care Condition: Good Prescriptions Prescriptions: New prednisone 20 mg tablet 40 mg PO BID 5 Days Qty: 20 0RF No Action mirtazapine 30 mg tablet 30 mg PO QHS Qty: 90 3RF valsartan-hydrochlorothiazide [Diovan HCT] 320-25 mg tablet 1 tab PO DAILY Qty: 30 5RF hydroxyzine HCl 25 mg tablet 50 mg PO HS Qty: 60 5RF carvedilol [Coreg] 25 mg tablet 50 mg PO BID Qty: 120 2RF Rx Instructions: give with food (meal/snack) estradiol 1 EACH patch semiweekly 1 patch TP .COMPLEX Rx Instructions: 1 patch topical Twice weekly; pregabalin 75 MG capsule 75 mg PO BID desvenlafaxine succinate 100 MG tablet extended release 24 hr 100 mg PO DAILY buspirone 10 MG tablet 10 mg PO BID furosemide 20 mg tablet 20 mg PO BID Qty: 14 0RF Referrals Follow up/Referrals: David Garcia MD [Primary Care Provider] - See instructions Activity Restrictions/Add. Instructions Additional Instructions/Restrictions: Follow-up with spinal surgery as scheduled, if you have bowel or bladder dysfunction, lower extremity weakness or numbness, or any other concerns, return to the ED for further evaluation promptly. Clinical Impressions Clinical Impression: Lower back pain Qualifiers: Chronicity: acute Back pain laterality: midline Sciatica presence: with sciatica Sciatica laterality: bilateral sciatica Qualified Code(s): M54.42 - Lumbago with sciatica, left side Instructions Patient Instructions: DI for Low Back Pain Discharge ED Provider: Christiano Massey General Adult HPI General Chief complaint: Back Pain/Injury Stated complaint: Lower back pain Time Seen by Provider: 05/15/22 12:59 Mode of Arrival: Ambulatory Source of Information: Patient Limitations: No Limitations Description of Symptoms (Recalled from ER Triage Doc. by RN): Pt reports increasing low back pain for three days without traumatic or known cause of exacerbation in setting of degenerative disc disease, and pt reports I couldn't bear it anymore so I came in to get some relief . NAD, denies dysuria, flank, or abd pain. History of Present Illness HPI narrative: Is a 47-year-old female with known degenerative disc disease and lower back pain presenting with acute on chronic lower back pain. Nontraumatic, no relevant injuries, no relevant heavy lifting, or any other concerning history. Patient states that this just gotten to the point where it hurts like crazy and is associated with nausea. 10 out of 10, radiates down both legs as her chronic sciatic pain. She denies any lower extremity weakness or sensation deficits. She also denies any bowel or bladder incontinence or retention. Refractory to Tylenol, Motrin, heating pads, stretching. No fevers, chills, other concerning history. Related Data Home Medications Medication Instructions Recorded Confirmed buspirone 10 mg tablet 10 mg PO BID Depression 12/22/21 12/26/21 desvenlafaxine succinate 100 mg 100 mg PO DAILY Depression 12/22/21 12/26/21 tablet,extended release 24 hr estradiol 0.1 mg/24 hr semiweekly 1 patch topical .COMPLEX estrogen 12/22/21 12/26/21 transdermal patch supplement pregabalin 75 mg capsule 75 mg PO BID nerve pain 12/22/21 12/26/21 Previous Rx's Medication Instructions Recorded mirtazapine 30 mg tablet 30 mg PO QHS SLEEP #90 tabs 12/04/21 valsartan 320 1 tab PO DAILY #30 tabs 12/26/21 mg-hydrochlorothiazide 25 mg tablet (Diovan HCT) furosemide 20 mg tablet 20 mg PO BID edema #14 tabs 12/27/21 hydroxyzine HCl 25 mg tablet 50 mg PO HS #60 tabs 01/08/22 carvedilol 25 mg tablet (Coreg) 50 mg PO BID #120 tabs 04/02/22 prednisone 20 mg tablet 40 mg PO BID 5 days #20 tabs 05/15/22 Allergies Allergy/AdvReac Type Severity Reaction Status Date / Time amlodipine Allergy Intermediate swelling Verified 12/27/21 20:02 legs and feet Penicillins [PENICILLINS] Allergy Inter
[2022-05-15 14:17] VITALS: BP 136/81; PULSE 89; RESP 15; O2SAT 97
[2022-05-15 14:25] VITALS: BP 130/87; PULSE 89; RESP 15; TEMP 36.8
== END 2022-05-15 14:29 | disposition home or self-care (01) ==
PROVIDERS: Emergency Provider Emergency Medicine; PCP Internal Medicine Adolescent Medicine
DX: M54.41 Lumbago with sciatica, right side (principal); M54.42 Lumbago with sciatica, left side; I25.10 Atherosclerotic heart disease of native coronary artery without angina pectoris; N18.2 Chronic kidney disease, stage 2 (mild); M54.16 Radiculopathy, lumbar region; M46.96 Unspecified inflammatory spondylopathy, lumbar region; I12.9 Hypertensive chronic kidney disease with stage 1 through stage 4 chronic kidney disease, or unspecified chronic kidney disease
CPT/HCPCS: 96372; 99283; 99284

== ENCOUNTER → 2022-05-26 12:36 | Outpatient (CLI) | payer OTHER, SELFPAY ==
[2022-05-26 13:24] LABS: Basophils # 0.2 K/mm3 (0-0.2); Basophils % 0.8 % (0.1-2.0); Eosinophils # 0.4 K/mm3 (0.0-0.4); Eosinophils % 1.9 % (0.1-12.0); Hematocrit 41.9 % (37.0-47.0); Hemoglobin 13.7 g/dL (12.2-16.2); Lymphocytes # 7.2 K/mm3 (0.7-4.5); Lymphocytes % 32.9 % (10-50); Mean Corpuscular HGB Conc 32.8 g/dL (31.8-35.4); Mean Corpuscular Hemoglobin 31.6 pg (27.0-31.2); Mean Corpuscular Volume 96.4 fl (81-99); Mean Platelet Volume 8.1 fl (7.4-10.4); Monocytes # 0.9 K/mm3 (0.1-1.0); Monocytes % 4.3 % (1.7-9.3); Neutrophils # 13.1 K/mm3 (1.8-7.8); Platelet Count 550 K/mm3 (142-424); Red Blood Count 4.34 M/mm3 (4.20-5.40); Red Cell Distribution Width 12.8 % (11.5-17.5); White Blood Count 21.9 K/mm3 (4.8-10.8)
[2022-05-26 13:25] LABS: MANUAL DIFFERENTIAL MANUAL DIFFERENTIAL (MANUAL DIFF)
[2022-05-26 13:40] LABS: Chloride 101 mmol/L (98-107); Potassium 4.3 mmoL/L (3.5-5.1); Sodium 137 mmol/L (136-145)
[2022-05-26 13:42] LABS: Amylase 105 U/L (30-110); Blood Urea Nitrogen 34 mg/dl (7-17); Estimated Glomerular Filt Rate 30 ml/min (>60); GFR (African American) 37 ML/MIN (>60)
[2022-05-26 13:43] LABS: Alanine Aminotransferase 125 U/L (12-78); Albumin Level 4.6 g/dl (3.5-5.0); Albumin/Globulin Ratio 1.4 (1.1-1.8); Alkaline Phosphatase 157 U/L (38-126); Anion Gap 16.3 mEq/L (5-15); Aspartate Amino Transferase 146 U/L (14-36); Bilirubin,Total 0.7 mg/dl (0.2-1.3); Calcium 9.8 mg/dl (8.4-10.2); Carbon Dioxide 24 mmol/L (22.0-30.0); Globulin 3.2 g/dL (1.3-3.2); Glucose 152 mg/dl (74-100); Lipase 512 U/L (23-300); Total Protein,Serum 7.8 g/dl (6.3-8.2)
[2022-05-26 14:21] LABS: Hemoglobin A1C 7.4 % (4.0-6.0)
[2022-05-26 15:31] LABS: Eosinophils % 3 % (0-3); Lymphocytes % 39 % (10-50); Monocytes % 5 % (2-9); Neutrophils % 52 % (42-76); Stomatocytes 1+; Total Cells Counted 100
[2022-05-26 15:32] LABS: Platelet Estimate Slight Increase
== END ==
PROVIDERS: PCP Nurse Practitioner Family; Visit Provider Nurse Practitioner Family
DX: R11.2 Nausea with vomiting, unspecified (principal); R81 Glycosuria
CPT/HCPCS: 36415; 80053; 82150; 83036; 83690; 85007; 85025

== ENCOUNTER → 2022-06-18 08:14 | Outpatient (CLI) | payer OTHER, SELFPAY ==
--- NOTE | 2022-06-18 08:16 | CT_ITS ---
FINAL REPORT TECHNIQUE: Thin section axial images were obtained from the lung bases to the pubic symphysis without IV contrast. Coronal reconstruction images were obtained from the axial data. Exam was performed using dose reduction technique. CLINICAL HISTORY: ELEVATED LIPASE FINDINGS: There are bilateral, left greater than right, renal stones. There are no ureteral stones. There is no obstruction, hydronephrosis or solid renal mass. The liver is enlarged with diffuse fatty infiltration. No focal lesion is identified. The gallbladder is absent. The remaining unenhanced solid abdominal organs are unremarkable. There is no evidence of small bowel obstruction. The appendix is absent. GI tract is without acute abnormality. There is diverticulosis without evidence of diverticulitis. There are postoperative changes from hysterectomy. There is no lymphadenopathy or ascites. No acute osseous abnormality is identified. IMPRESSION: 1. Enlarged fatty liver. 2. Bilateral nonobstructing renal stones, left greater than right. 3. No other acute abnormality on this unenhanced exam. Reviewed, Interpreted and Dictated by Diane White MD Transcribed by Cely Gusman Authenticated and . [facility]
--- NOTE | 2022-06-18 08:45 | HMH.ITSTN ---
Spoke with radiologist , Dr Daine White about patient's GFR of 30. She recommended patient not get IV contrast. I call Eda Tucker and advised her of the situation. She told me to change order to without scan and that it didn't need a precert.
== END ==
PROVIDERS: PCP Nurse Practitioner Family; Visit Provider Nurse Practitioner Family
DX: D72.829 Elevated white blood cell count, unspecified (principal); R74.8 Abnormal levels of other serum enzymes; R11.2 Nausea with vomiting, unspecified
CPT/HCPCS: 74176

== ENCOUNTER 2022-06-25 20:32 | Emergency (ER) | payer OTHER, SELFPAY ==
[2022-06-25 20:34] VITALS: BP 91/70; PULSE 71; RESP 19; TEMP 36.8; O2SAT 95; BMI 46.6
[2022-06-25 20:42] VITALS: BP 91/70; PULSE 72; RESP 16; O2SAT 96
--- NOTE | 2022-06-25 20:42 | ECG_ITS ---
APPROVED REPORT Exam: Resting ECG HR:72 bpm ECG Measurements Heart Rate 72 AXES IN 153 P 27 QRSd 105 QRS -2 QT 406 T 27 QTc 429 Conclusion SINUS RHYTHM POSSIBLE LEFT VENTRICULAR HYPERTROPHY [VOLTAGE CRITERIA PLUS LAE OR QRS WIDENING] NONSPECIFIC T-WAVE ABNORMALITY ABNORMAL ECG UNCONFIRMED REPORT Electronically signed by : David Garcia MD 06/26/2022 19:34:49
--- NOTE | 2022-06-25 20:54 | XR_ITS ---
PROCEDURE INFORMATION: Exam: XR Chest Exam date and time: 06/25/2022 9:12 PM Age: 47 years old Clinical indication: Shortness of breath; Additional info: SOA TECHNIQUE: Imaging protocol: Radiologic exam of the chest. Views: 1 view. COMPARISON: CR XR CHEST 2V 12/21/2021 11:17 PM FINDINGS: Lungs: Patchy infiltrate versus subsegmental atelectasis suggested in the left lower lobe retrocardiac region. Pleural spaces: Unremarkable. No pleural effusion. No pneumothorax. Heart/Mediastinum: Unremarkable. No cardiomegaly. Bones/joints: Unremarkable. IMPRESSION: Findings suggest the presence of a left lower lobe region of consolidation versus subsegmental atelectasis.
[2022-06-25 21:09] LABS: Basophils # 0.1 K/mm3 (0-0.2); Eosinophils # 0.4 K/mm3 (0.0-0.4); Eosinophils % 4.1 % (0.1-12.0); Hematocrit 36.2 % (37.0-47.0); Hemoglobin 11.8 g/dL (12.2-16.2); Lymphocytes # 2.7 K/mm3 (0.7-4.5); Lymphocytes % 27.8 % (10-50); Mean Corpuscular HGB Conc 32.5 g/dL (31.8-35.4); Mean Corpuscular Volume 95.5 fl (81-99); Mean Platelet Volume 7.3 fl (7.4-10.4); Monocytes # 0.5 K/mm3 (0.1-1.0); Monocytes % 5.1 % (1.7-9.3); Neutrophils % 61.9 % (37.0-80.0); Platelet Count 388 K/mm3 (142-424); Red Blood Count 3.79 M/mm3 (4.20-5.40); Red Cell Distribution Width 13.1 % (11.5-17.5); White Blood Count 9.8 K/mm3 (4.8-10.8)
[2022-06-25 21:11] LABS: Chloride 104 mmol/L (98-107); HCG Qualitative, Serum Negative (Negative); Potassium 3.6 mmoL/L (3.5-5.1); Sodium 140 mmol/L (136-145)
[2022-06-25 21:13] LABS: Blood Urea Nitrogen 22 mg/dl (7-17); Creatinine Clearance Estimated 33 mL/min (50-200); Estimated Glomerular Filt Rate 25 ml/min (>60); GFR (African American) 31 ML/MIN (>60)
[2022-06-25 21:14] LABS: Anion Gap 12.6 mEq/L (5-15); Carbon Dioxide 27 mmol/L (22.0-30.0); Glucose 125 mg/dl (74-100); Magnesium 1.3 mg/dl (1.6-2.3)
--- NOTE | 2022-06-25 21:15 | HMH.EDGENADL ---
Discharge Plan Disposition Patient Disposition: Home, Self-Care Condition: Good Prescriptions Prescriptions: New doxycycline hyclate 100 mg capsule 100 mg PO BID Qty: 14 0RF No Action carvedilol 25 mg tablet 25 mg PO DAILY tizanidine 4 mg tablet 4 mg PO DAILY PRN (Reason: Pain) Label Comments: TAKE TWO TABLETS BY MOUTH EVERY DAY NEEDED estradiol 0.1 mg/24 hr patch semiweekly 1 patch transdermal WEEKLY Label Comments: APPLY 1 PATCH TOPICALLY TWICE WEEKLY mirtazapine 30 mg tablet 30 mg PO HS Label Comments: TAKE ONE TABLET BY MOUTH EVERY DAY AT BEDTIME FOR SLEEP hydroxyzine HCl 25 mg tablet 50 mg PO HS Label Comments: TAKE TWO TABLETS BY MOUTH EVERY DAY AT BEDTIME hydroxyzine HCl 25 mg tablet 50 mg PO HS Label Comments: TAKE TWO TABLETS BY MOUTH EVERY DAY AT BEDTIME fluticasone propionate 50 mcg/actuation spray,suspension 1 spray INTRANASAL DAILY Label Comments: instill 1 SPRAY IN EACH NOSTRIL EVERY DAY valsartan-hydrochlorothiazide 320-25 mg tablet 1 tab PO DAILY Referrals Follow up/Referrals: Erica Tucker APRN [Primary Care Provider] - See instructions Activity Restrictions/Add. Instructions Additional Instructions/Restrictions: Return to the emergency department for worsening pain dizziness or any other concerns within the next 8 hours otherwise follow-up with your primary care physician within the next 1 to 2 days Clinical Impressions Clinical Impression: Pneumonia Stand Alone Forms Stand Alone Forms: Work/School Release Instructions Patient Instructions: DI for Low Back Pain Discharge ED Provider: Camden Sandoval General Adult HPI General Chief complaint: Back Pain/Injury Stated complaint: pain between shoulder blades, light-headed Time Seen by Provider: 06/25/22 20:35 Mode of Arrival: Wheelchair Source of Information: Patient Limitations: No Limitations Description of Symptoms (Recalled from ER Triage Doc. by RN): 47 F presents with pain between her shoulder blades, light headed, and low blood pressure. Patient reports feeling fine throughout today. She was at work on her break and fell asleep sitting at a peters, when she woke up this is when she began feeling this way. NAD other vazquez. History of Present Illness HPI narrative: 47-year-old female presents with sudden onset pain between her shoulder blades shooting pain to the top of her neck and then felt lightheaded. She was at work and began to feel sleep and then was recommended to come in. She says she thinks it is her chronic back pain as she has had similar episodes before. No fever no chills no abdominal pain. No chest pain or shortness of air. She has chronic insomnia as well for which she is being evaluated. No headache or numbness weakness or tingling arms or legs. Symptoms have resolved at this point. Related Data Home Medications Medication Instructions Recorded Confirmed carvedilol 25 mg tablet 25 mg PO DAILY Heart 06/25/22 06/25/22 estradiol 0.1 mg/24 hr semiweekly 1 patch transdermal WEEKLY 06/25/22 06/25/22 transdermal patch Supplement fluticasone propionate 50 1 spray intranasal DAILY Allergic 06/25/22 06/25/22 mcg/actuation nasal Rhinitis spray,suspension hydroxyzine HCl 25 mg tablet 50 mg PO HS Anxiety 06/25/22 06/25/22 hydroxyzine HCl 25 mg tablet 50 mg PO HS Anxiety 06/25/22 06/25/22 mirtazapine 30 mg tablet 30 mg PO HS Sleep 06/25/22 06/25/22 tizanidine 4 mg tablet 4 mg PO DAILY PRN Pain 06/25/22 06/25/22 valsartan 320 1 tab PO DAILY Heart 06/25/22 06/25/22 mg-hydrochlorothiazide 25 mg tablet Previous Rx's Medication Instructions Recorded doxycycline hyclate 100 mg capsule 100 mg PO BID #14 caps 06/25/22 Allergies Allergy/AdvReac Type Severity Reaction Status Date / Time amlodipine Allergy Intermediate swelling Verified 12/27/21 20:02 legs and feet Penicillins [PENICILLINS] Allergy I
[2022-06-25 21:23] LABS: NT Pro Brain Natriuretic Pep. 21.8 pg/mL (0-125)
[2022-06-25 21:30] VITALS: BP 111/67; PULSE 77; RESP 17; O2SAT 96
[2022-06-25 21:30] LABS: Troponin I < 0.01 ng/ml (0.00-0.034)
[2022-06-25 22:00] VITALS: BP 114/80; PULSE 66; RESP 18; O2SAT 96
[2022-06-25 22:30] VITALS: BP 122/83; PULSE 63; RESP 17; O2SAT 95
[2022-06-25 23:00] VITALS: BP 135/92; PULSE 71; RESP 17; TEMP 36.7; O2SAT 96
== END 2022-06-25 23:12 | disposition home or self-care (01) ==
PROVIDERS: Emergency Provider Emergency Medicine; PCP Nurse Practitioner Family
DX: J18.9 Pneumonia, unspecified organism (principal); Z86.79 Personal history of other diseases of the circulatory system; N18.2 Chronic kidney disease, stage 2 (mild); M54.16 Radiculopathy, lumbar region; I10 Essential (primary) hypertension; G43.909 Migraine, unspecified, not intractable, without status migrainosus
CPT/HCPCS: 71045; 80048; 83735; 83880; 84484; 84703; 85025; 93005; 96361; 96365; 96375; 99285; J3475

== ENCOUNTER → 2022-07-01 13:35 | Outpatient (CLI) | payer OTHER, SELFPAY ==
[2022-07-01 14:18] VITALS: BMI 46.7
== END ==
PROVIDERS: PCP Nurse Practitioner Family; Visit Provider Nurse Practitioner Family
DX: Z71.3 Dietary counseling and surveillance (principal); E11.9 Type 2 diabetes mellitus without complications
CPT/HCPCS: 97802

== ENCOUNTER → 2022-08-18 12:18 | Outpatient (CLI) | payer OTHER, SELFPAY ==
--- NOTE | 2022-08-18 12:24 | XR_ITS ---
FINAL REPORT CLINICAL HISTORY: LEFT FLANK PAIN COMPARISON: 10/11/2021 FINDINGS: A single view of the abdomen was obtained. There is a nonobstructive bowel gas pattern. There are no abnormally dilated loops of small bowel. There are postoperative changes in the right abdomen. There is a probable renal stone in the lower pole of the right kidney measuring approximately 4 mm. There are several probable left renal stones, not as well seen as on the prior. Several pelvic calcifications which are stable and likely represent phleboliths. IMPRESSION: Probable right renal stone measuring approximately 4 mm. Several probable left renal stones, not as well seen as on the prior. Reviewed, Interpreted and Dictated by Layo Narvaez III, MD Transcribed by Cely Gusman Authenticated and . [facility]
[2022-08-18 12:32] LABS: Microscopic, Urine URINE MICROSCOPIC (MICROSCOPIC)
[2022-08-18 12:49] LABS: Appearance,Urine SL CLOUDY (Clear); Bilirubin,Urine Negative (Negative); Blood, Urine Negative (Negative); Color,Urine YELLOW (Yellow); Glucose,Urine (UA) 3+ (Negative); Ketones,Urine Negative (Negative); Leukocyte Esterase,Urine Negative (Negative); Nitrate,Urine Negative (Negative); PH,Urine 5.5 (5.0-8.5); Protein,Urine Negative (Negative); Specific Gravity, Urine 1.025 (1.005-1.030); Urobilinogen,Urine 0.2 EU/dl (0.2)
[2022-08-18 13:01] LABS: Basophils % 0.4 % (0.1-2.0); Eosinophils # 0.4 K/mm3 (0.0-0.4); Eosinophils % 5.3 % (0.1-12.0); Hematocrit 39.1 % (37.0-47.0); Hemoglobin 12.9 g/dL (12.2-16.2); Lymphocytes # 2.5 K/mm3 (0.7-4.5); Lymphocytes % 31.3 % (10-50); Mean Corpuscular Hemoglobin 30.9 pg (27.0-31.2); Mean Corpuscular Volume 93.8 fl (81-99); Mean Platelet Volume 7.4 fl (7.4-10.4); Monocytes # 0.4 K/mm3 (0.1-1.0); Monocytes % 5.1 % (1.7-9.3); Neutrophils # 4.7 K/mm3 (1.8-7.8); Neutrophils % 57.9 % (37.0-80.0); Platelet Count 313 K/mm3 (142-424); Red Blood Count 4.16 M/mm3 (4.20-5.40); Red Cell Distribution Width 12.6 % (11.5-17.5); White Blood Count 8.1 K/mm3 (4.8-10.8)
[2022-08-18 13:03] LABS: Bacteria,Urine Trace /lpf; WBC,Urine Occasional #/hpf (0-3)
[2022-08-18 13:27] LABS: Alanine Aminotransferase 59 U/L (12-78); Albumin Level 4.4 g/dl (3.5-5.0); Albumin/Globulin Ratio 1.4 (1.1-1.8); Alkaline Phosphatase 90 U/L (38-126); Anion Gap 8.5 mEq/L (5-15); Aspartate Amino Transferase 56 U/L (14-36); Bilirubin,Total 0.9 mg/dl (0.2-1.3); Blood Urea Nitrogen 19 mg/dl (7-17); Carbon Dioxide 25 mmol/L (22.0-30.0); Chloride 106 mmol/L (98-107); Estimated Glomerular Filt Rate 49 ml/min (>60); GFR (African American) 59 ML/MIN (>60); Globulin 3.1 g/dL (1.3-3.2); Glucose 116 mg/dl (74-100); Potassium 3.5 mmoL/L (3.5-5.1); Sodium 136 mmol/L (136-145); Total Protein,Serum 7.5 g/dl (6.3-8.2)
== END ==
PROVIDERS: PCP Nurse Practitioner Family; Visit Provider Nurse Practitioner Family
DX: R10.9 Unspecified abdominal pain (principal); Z87.442 Personal history of urinary calculi
CPT/HCPCS: 36415; 74018; 80053; 81001; 85025; 87086

== ENCOUNTER 2022-08-22 18:13 | Emergency (ER) | payer OTHER, SELFPAY ==
[2022-08-22 18:14] VITALS: BP 155/101; PULSE 63; RESP 16; TEMP 36.4; O2SAT 96; BMI 45.3
[2022-08-22 18:29] VITALS: BMI 45.3
--- NOTE | 2022-08-22 18:31 | CT_ITS ---
PROCEDURE INFORMATION: Exam: CT Abdomen And Pelvis Without Contrast Exam date and time: 08/22/2022 6:40 PM Age: 47 years old Clinical indication: Abdominal pain; Flank; Other: Bilat; Additional info: Flank pain with known history of kidney stones. TECHNIQUE: Imaging protocol: Computed tomography of the abdomen and pelvis without contrast. Radiation optimization: All CT scans at this facility use at least one of these dose optimization techniques: automated exposure control; mA and/or kV adjustment per patient size (includes targeted exams where dose is matched to clinical indication); or iterative reconstruction. REPORTING DATA: Count of CT and Cardiac NM exams in prior 12 months: This patient has received 3 known CTs and 0 known cardiac nuclear medicine studies in the 12 months prior to the current study. COMPARISON: CT ABDOMEN PELVIS WO CON 06/18/2022 8:47 AM FINDINGS: Lungs: Lung bases are clear. Liver: Fatty liver changes with associated hepatomegaly redemonstrated. Gallbladder and bile ducts: Gallbladder has been removed. No evident bile duct dilatation. Pancreas: Normal. No ductal dilation. Spleen: Normal. No splenomegaly. Adrenal glands: Normal. No mass. Kidneys and ureters: Multiple bilateral renal stones redemonstrated [id number]. Largest on the right measuring 5 mm. Interval development of a 8 mm nonobstructing stone in the inferior left kidney. Numerous additional stones on the left otherwise similar to previous. Delete Multifocal left renal scarring redemonstrated. No obstructing stones or uropathy. Ureters normal course and caliber. Stomach and bowel: Unremarkable. No obstruction. No mucosal thickening. Appendix: Appendix not visible, but no secondary signs of appendicitis identified. Intraperitoneal space: See Reproductive finding. Vasculature: Unremarkable. No abdominal aortic aneurysm. Lymph nodes: Unremarkable. No enlarged lymph nodes. Urinary bladder: Unremarkable as visualized. Reproductive: Status post hysterectomy. No pelvic mass or free fluid. Bones/joints: Unremarkable. No acute fracture. Soft tissues: Unremarkable. IMPRESSION: 1. No acute abnormalities. 2. Bilateral nonobstructing renal stones [id number]. Interval development of a 8 mm nonobstructing renal stone on the left. 3. No obstructing stones or uropathy. 4. Additional nonemergent findings as above.
[2022-08-22 18:34] LABS: Microscopic, Urine URINE MICROSCOPIC (MICROSCOPIC)
--- NOTE | 2022-08-22 18:35 | HMH.EDGENADL ---
Discharge Plan Disposition Patient Disposition: Home, Self-Care Chief Complaint: PAIN Prescriptions Prescriptions: No Action valsartan-hydrochlorothiazide 320-25 mg tablet See Rx Instructions .ROUTE .COMPLEX Qty: 30 5RF Dose Instruction: TAKE ONE TABLET BY MOUTH EVERY DAY Rx Instructions: TAKE ONE TABLET BY MOUTH EVERY DAY estradiol 0.1 mg/24 hr patch semiweekly See Rx Instructions .ROUTE .COMPLEX Qty: 8 2RF Dose Instruction: APPLY 1 PATCH TOPICALLY TWICE WEEKLY Rx Instructions: APPLY 1 PATCH TOPICALLY TWICE WEEKLY carvedilol 25 mg tablet 25 mg PO BID Qty: 60 5RF tizanidine 4 mg tablet 4 mg PO DAILY PRN (Reason: Pain) Label Comments: TAKE TWO TABLETS BY MOUTH EVERY DAY NEEDED mirtazapine 30 mg tablet 30 mg PO HS Label Comments: TAKE ONE TABLET BY MOUTH EVERY DAY AT BEDTIME FOR SLEEP hydroxyzine HCl 25 mg tablet 50 mg PO HS Label Comments: TAKE TWO TABLETS BY MOUTH EVERY DAY AT BEDTIME hydroxyzine HCl 25 mg tablet 50 mg PO HS Label Comments: TAKE TWO TABLETS BY MOUTH EVERY DAY AT BEDTIME fluticasone propionate 50 mcg/actuation spray,suspension 1 spray INTRANASAL DAILY Label Comments: instill 1 SPRAY IN EACH NOSTRIL EVERY DAY doxycycline hyclate 100 mg capsule 100 mg PO BID Qty: 14 0RF Referrals Follow up/Referrals: Erica Tucker APRN [Primary Care Provider] - See instructions Activity Restrictions/Add. Instructions Additional Instructions/Restrictions: Follow-up with your primary care doctor as needed. The CT today did not show any stones in your ureters. You do not seem to have a urinary tract infection. The pain you are experiencing is not from kidney stones. You may take amzy-zuz-ryjcofs Tylenol for your pain. Return to the emergency department immediately if you feel worse in any way. Clinical Impressions Clinical Impression: Abdominal pain Instructions Patient Instructions: DI for Chronic Pain -- Adult Discharge ED Provider: Nhan Lucero Adult [facility] General Chief complaint: PAIN Stated complaint: kidney stones Time Seen by Provider: 08/22/22 18:34 Mode of Arrival: Ambulatory Source of Information: Patient Limitations: No Limitations Description of Symptoms (Recalled from ER Triage Doc. by RN): c/o bilateral flank pain due to her dx of kidney stones on the , pt states she was told she has a 4mm stone on the right and several on the left. has an outpt scan ordered to see how many there is. History of Present Illness HPI narrative: The patient presents to the emergency department complaining of bilateral flank pain that been ongoing for over a week. She was seen by her primary care physician on the of this month. A plain abdominal x-ray was performed and the patient was diagnosed with bilateral kidney stones. The patient denies any fever or hematuria. She also denies emesis or diarrhea. Related Data Home Medications Medication Instructions Recorded Confirmed fluticasone propionate 50 1 spray intranasal DAILY Allergic 06/25/22 06/25/22 mcg/actuation nasal Rhinitis spray,suspension hydroxyzine HCl 25 mg tablet 50 mg PO HS Anxiety 06/25/22 06/25/22 hydroxyzine HCl 25 mg tablet 50 mg PO HS Anxiety 06/25/22 06/25/22 mirtazapine 30 mg tablet 30 mg PO HS Sleep 06/25/22 06/25/22 tizanidine 4 mg tablet 4 mg PO DAILY PRN Pain 06/25/22 06/25/22 Previous Rx's Medication Instructions Recorded doxycycline hyclate 100 mg capsule 100 mg PO BID #14 caps 06/25/22 valsartan 320 See Rx Instructions .Route 08/07/22 mg-hydrochlorothiazide 25 mg tablet .COMPLEX #30 tabs estradiol 0.1 mg/24 hr semiweekly See Rx Instructions .Route 08/19/22 transdermal patch .COMPLEX #8 patches carvedilol 25 mg tablet 25 mg PO BID Heart #60 tabs 08/20/22 Allergies Allergy/AdvReac Type Severity Reaction Status Date / Time amlodipine Allergy Intermediate swelling Verified 12/27/21 2
[2022-08-22 18:46] LABS: Appearance,Urine CLEAR (Clear); Bilirubin,Urine Negative (Negative); Blood, Urine Negative (Negative); Color,Urine YELLOW (Yellow); Glucose,Urine (UA) 2+ (Negative); Ketones,Urine Negative (Negative); Leukocyte Esterase,Urine Negative (Negative); Nitrate,Urine Negative (Negative); Protein,Urine Negative (Negative); Specific Gravity, Urine >= 1.030 (1.005-1.030); Urobilinogen,Urine 0.2 EU/dl (0.2)
[2022-08-22 18:55] LABS: WBC,Urine Occasional #/hpf (0-3)
[2022-08-22 19:29] VITALS: BP 133/57; PULSE 91; RESP 17; TEMP 36.8; O2SAT 97
== END 2022-08-22 19:31 | disposition home or self-care (01) ==
PROVIDERS: Emergency Provider Emergency Medicine; PCP Nurse Practitioner Family
DX: R10.9 Unspecified abdominal pain (principal); N20.0 Calculus of kidney
CPT/HCPCS: 74176; 81001; 96372; 99284; 99285

== ENCOUNTER → 2022-09-08 08:47 | Outpatient (CLI) | payer OTHER, SELFPAY ==
--- NOTE | 2022-09-08 08:52 | XR_ITS ---
FINAL REPORT CLINICAL HISTORY: SCOLIOSIS, back pain, no injury FINDINGS: The vertebrae are normal height. Alignment is within normal limits. Mild degenerative disc disease in the lower lumbar spine. Prevertebral soft tissues are unremarkable. There is no instability with flexion or extension. IMPRESSION: Mild degenerative disc disease in the lower lumbar spine. Reviewed, Interpreted and Dictated by Eve Hernandes MD Transcribed by Oswald Cuadra Authenticated and [facility]
--- NOTE | 2022-09-08 08:55 | XR_ITS ---
FINAL REPORT CLINICAL HISTORY: EVALUATE SCOLIOSIS FINDINGS: SCOLIOSIS EVALUATION Two views of the thoracolumbar spine were obtained. There is mild S-shaped scoliosis. There is 15 degrees dextroscoliosis of the thoracic spine. There is 12 degrees of levoscoliosis of the lumbar spine. There are no vertebral anomalies. IMPRESSION: Thoracolumbar scoliosis as above. Reviewed, Interpreted and Dictated by Eve Hernandes MD Transcribed by Oswald Cuadra Authenticated and [facility]
== END ==
PROVIDERS: PCP Nurse Practitioner Family; Visit Provider Nurse Practitioner Family
DX: M41.9 Scoliosis, unspecified (principal)
CPT/HCPCS: 72081; 72114

== ENCOUNTER → 2022-09-09 16:35 | Outpatient (CLI) | payer OTHER, SELFPAY ==
--- NOTE | 2022-09-09 16:42 | MR_ITS ---
PROCEDURE INFORMATION: Exam: MR Lumbar Spine Without Contrast Exam date and time: 09/09/2022 4:49 PM Age: 47 years old Clinical indication: Low back pain TECHNIQUE: Imaging protocol: Magnetic resonance imaging of the lumbar spine without contrast. COMPARISON: MR LUMBAR SPINE WO CON 11/07/2021 2:04 PM FINDINGS: Bones/joints: Favored L2 interosseous hemangioma unchanged from prior examination. L3 through S1 moderate loss of T2 disc signal and height compatible with disc desiccation. Spinal cord: Visualized cord, conus medullaris and cauda equina are unremarkable without compression. T12-L1: T12-L1 large right paraspinal disc protrusion that extends to the right foraminal zone and impresses upon the ventral cord resulting in moderate right neural foraminal stenosis without significant left neural foraminal stenosis, as well as mild spinal canal stenosis. L1-L2: L1-L2 small posterior disc protrusion without significant spinal canal or neural foraminal stenosis. L2-L3: L2-L3 small posterior disc protrusion without significant spinal canal or neural foraminal stenosis. L3-L4: L3-L4 Small broad base left greater than right disc protrusion resulting in mild bilateral neural foraminal stenosis, left greater than right. L4-L5: L4-L5 small broad-based posterior disc protrusion resulting in mild bilateral neural foraminal stenosis and mild spinal canal stenosis. L5-S1: L5-S1 Moderate broad-based posterior disc protrusion with endplate and facet osteophytosis results in moderate bilateral neural foraminal stenosis and mild spinal canal stenosis. Soft tissues: Unremarkable. IMPRESSION: T12-L1 large right paraspinal disc protrusion that extends to the right foraminal zone and impresses upon the ventral cord resulting in moderate right neural foraminal stenosis without significant left neural foraminal stenosis, as well as mild spinal canal stenosis. Xyhd-rp-khjkyvsv multilevel discogenic degenerative changes with neural foraminal stenosis as discussed above.
== END ==
PROVIDERS: PCP Nurse Practitioner Family; Visit Provider Nurse Practitioner Family
DX: M54.50 Low back pain, unspecified (principal); M41.9 Scoliosis, unspecified; M54.16 Radiculopathy, lumbar region; M47.816 Spondylosis without myelopathy or radiculopathy, lumbar region; M48.062 Spinal stenosis, lumbar region with neurogenic claudication
CPT/HCPCS: 72148; 76376

== ENCOUNTER 2022-09-18 18:53 | Emergency (ER) | payer OTHER, SELFPAY ==
[2022-09-18 19:15] VITALS: BP 101/68; PULSE 71; RESP 20; TEMP 36.6; O2SAT 97; BMI 46.0
--- NOTE | 2022-09-18 19:23 | EXP.UTC ---
Discharge Plan Disposition Patient Disposition: Home, Self-Care Condition: Good Prescriptions Prescriptions: New methocarbamol 500 mg tablet 500 mg PO TID PRN (Reason: muscle spasm) Qty: 30 0RF No Action valsartan-hydrochlorothiazide 320-25 mg tablet See Rx Instructions .ROUTE .COMPLEX Qty: 30 5RF Dose Instruction: TAKE ONE TABLET BY MOUTH EVERY DAY Rx Instructions: TAKE ONE TABLET BY MOUTH EVERY DAY estradiol 0.1 mg/24 hr patch semiweekly See Rx Instructions .ROUTE .COMPLEX Qty: 8 2RF Dose Instruction: APPLY 1 PATCH TOPICALLY TWICE WEEKLY Rx Instructions: APPLY 1 PATCH TOPICALLY TWICE WEEKLY carvedilol 25 mg tablet 25 mg PO BID Qty: 60 5RF tizanidine 4 mg tablet 4 mg PO DAILY PRN (Reason: Pain) Label Comments: TAKE TWO TABLETS BY MOUTH EVERY DAY NEEDED mirtazapine 30 mg tablet 30 mg PO HS Label Comments: TAKE ONE TABLET BY MOUTH EVERY DAY AT BEDTIME FOR SLEEP hydroxyzine HCl 25 mg tablet 50 mg PO HS Label Comments: TAKE TWO TABLETS BY MOUTH EVERY DAY AT BEDTIME hydroxyzine HCl 25 mg tablet 50 mg PO HS Label Comments: TAKE TWO TABLETS BY MOUTH EVERY DAY AT BEDTIME fluticasone propionate 50 mcg/actuation spray,suspension 1 spray INTRANASAL DAILY Label Comments: instill 1 SPRAY IN EACH NOSTRIL EVERY DAY doxycycline hyclate 100 mg capsule 100 mg PO BID Qty: 14 0RF Referrals Follow up/Referrals: Erica Tucker APRN [Primary Care Provider] - See instructions Activity Restrictions/Add. Instructions Additional Instructions/Restrictions: *Ibuprofen nohemi 6 hours with meal as needed for pain/inflammation if you can take it *Not additional anti-inflammatory like motrin, aleve, advil with the above amount of ibuprofen. You can still take Tylenol every 4 hours as needed if you need something else for pain *Ice 20 minutes every 2 hours for the first 48 hours after the initial injury followed by moist heat every 20 minutes 3-4 times a day to affected area *Muscle relaxer every 8 hours as needed for muscle spasms but remember, it WILL cause drowsiness You cannot take it and drive, operate machinery or care for small children. *Keep this area active, no movement leads to more stiffness, However take it easy and avoid heavy lifting pushing or pulling *Follow up with you family doctor if no improvement for further treatment Clinical Impressions Clinical Impression: Muscle spasm Instructions Patient Instructions: DI for Thoracic Back Pain, DI for Muscle Spasm Discharge ED Provider: Kenzie Damon [facility] [place] Stated complaint: Back pain Mode of Arrival: Ambulatory Source of Information: Patient Limitations: No Limitations Time Seen by Provider: 09/18/22 19:24 Description of Symptoms (Recalled from Triage Doc. by RN): pt c/o muscle spasms that begin in her upper back and radiates around and under both of her shoulder blades. pt states this has been ongoing for years. however, she recently started working again and it has flared up. x3d HEENT Symptoms (Recalled from RN notes): No Resp Symptoms (Recalled from RN notes): No Skin Symptoms (Recalled from RN notes): No MS Symptoms (Recalled from RN notes): Yes Functional Status (Recalled from RN notes): wnl History of Present Illness Provider Complaint: Patient states that she has a hx of back problems States that she recently started back to work and has been having pain in her mid upper back that goes around both shoulder blades like spasms she has had before States that she usually takes muscle relaxers for it but she is out so she came in hoping she could get a little something to help with the spasms Related Data Home Medications Medication Instructions Recorded Confirmed fluticasone propionate 50 1 spray intranasal DAILY Allergic 06/25/22 06/25/22 mcg/actuation nasal Rhinitis spray,suspension hydroxyzine HCl 25 mg tablet 50 mg PO HS Anx
[2022-09-18 19:42] VITALS: BP 101/68; PULSE 71; RESP 20; TEMP 36.6
== END 2022-09-18 19:47 | disposition home or self-care (01) ==
PROVIDERS: Emergency Provider Nurse Practitioner; PCP Nurse Practitioner Family
DX: M62.830 Muscle spasm of back (principal); M25.511 Pain in right shoulder; M25.512 Pain in left shoulder; M51.16 Intervertebral disc disorders with radiculopathy, lumbar region; I12.9 Hypertensive chronic kidney disease with stage 1 through stage 4 chronic kidney disease, or unspecified chronic kidney disease; N18.2 Chronic kidney disease, stage 2 (mild)
CPT/HCPCS: 99212; 99214; G0463

== ENCOUNTER 2023-01-09 17:36 | Emergency (ER) | payer OTHER, SELFPAY ==
[2023-01-09 17:36] VITALS: BP 131/76; PULSE 76; RESP 18; TEMP 36.9; O2SAT 98; BMI 44.9
--- NOTE | 2023-01-09 19:02 | EXP.UTC ---
Discharge Plan Disposition Patient Disposition: Home, Self-Care Condition: Good Prescriptions Prescriptions: New azithromycin [Zithromax Z-Matthew] 250 mg tablet See Rx Instructions .ROUTE .COMPLEX 5 Days Qty: 6 0RF Rx Instructions: For 250 mg dose pack: take 500 mg today (day 1), then 250 mg for 4 days (days 2-5) No Action valsartan-hydrochlorothiazide 320-25 mg tablet See Rx Instructions .ROUTE .COMPLEX Qty: 30 5RF Dose Instruction: TAKE ONE TABLET BY MOUTH EVERY DAY Rx Instructions: TAKE ONE TABLET BY MOUTH EVERY DAY estradiol 0.1 mg/24 hr patch semiweekly See Rx Instructions .ROUTE .COMPLEX Qty: 8 2RF Dose Instruction: APPLY 1 PATCH TOPICALLY TWICE WEEKLY Rx Instructions: APPLY 1 PATCH TOPICALLY TWICE WEEKLY carvedilol 25 mg tablet 25 mg PO BID Qty: 60 5RF tizanidine 4 mg tablet 4 mg PO DAILY PRN (Reason: Pain) Patient Comments: TAKE TWO TABLETS BY MOUTH EVERY DAY NEEDED mirtazapine 30 mg tablet 30 mg PO HS Patient Comments: TAKE ONE TABLET BY MOUTH EVERY DAY AT BEDTIME FOR SLEEP hydroxyzine HCl 25 mg tablet 50 mg PO HS Patient Comments: TAKE TWO TABLETS BY MOUTH EVERY DAY AT BEDTIME hydroxyzine HCl 25 mg tablet 50 mg PO HS Patient Comments: TAKE TWO TABLETS BY MOUTH EVERY DAY AT BEDTIME fluticasone propionate 50 mcg/actuation spray,suspension 1 spray INTRANASAL DAILY Patient Comments: instill 1 SPRAY IN EACH NOSTRIL EVERY DAY doxycycline hyclate 100 mg capsule 100 mg PO BID Qty: 14 0RF methocarbamol 500 mg tablet 500 mg PO TID PRN (Reason: muscle spasm) Qty: 30 0RF Referrals Follow up/Referrals: David Garcia MD [Primary Care Provider] - See instructions Activity Restrictions/Add. Instructions Additional Instructions/Restrictions: *Monitor Temp, Over the counter Motrin or Tylenol as directed/as needed Tylenol every 4 hours and Motrin every 6 hours (as long as your family doctor has told you that you can take it) for fever or pain. and straight to ER if unable to lower temp less than 101.0 after medication given *Warm salt water gargles may help to soothe the throat *Throat Lozenges? *Warm fluids like tea with honey may help to soothe the throat? *Sleep elevated *Humidifier/Vaporizer *Flonase 2 sprays in each nostril daily but be aware that it may take 2-3 days before you notice improvement Follow up IMMEDIATELY for new or worsening symptoms or no Noticeable improvement over the next 48-72 hours. 911 for difficulty breathing or swallowing Clinical Impressions Clinical Impression: Otitis media Qualifiers: Otitis media type: unspecified Laterality: unspecified laterality Qualified Code(s): H66.90 - Otitis media, unspecified, unspecified ear Instructions Patient Instructions: Middle Ear Infection, Ear Infections (Alternative Therapy) Discharge ED Provider: Kenzie Damon [facility] [place] Stated complaint: left ear pain, cough Mode of Arrival: Ambulatory Source of Information: Patient Limitations: No Limitations Time Seen by Provider: 01/09/23 19:03 Description of Symptoms (Recalled from Triage Doc. by RN): Complaint of stuffy nose, cough and left ear pain since thursday. HEENT Symptoms (Recalled from RN notes): Yes Resp Symptoms (Recalled from RN notes): No Skin Symptoms (Recalled from RN notes): No MS Symptoms (Recalled from RN notes): No Functional Status (Recalled from RN notes): wnl History of Present Illness Provider Complaint: Patient states that for about 3-4 days she has been having sinus pain and pressure, sore throat and pain in her left ear States that todya she wasnt feeling any better so she came in to get checked Related Data Home Medications Medication Instructions Recorded Confirmed fluticasone propionate 50 1 spray intranasal DAILY Allergic 06/25/22 06/25/22 mcg/actuation nasal Rhinitis spray,suspension
[2023-01-09 19:28] VITALS: BP 131/76; PULSE 76; RESP 18; TEMP 36.9; O2SAT 98
[2023-01-11 15:57] LABS: Coronavirus 19, PCR Not Detected (NotDetected); Influenza A, PCR Not Detected (NotDetected); Influenza B, PCR Not Detected (NotDetected)
== END 2023-01-09 19:29 | disposition home or self-care (01) ==
PROVIDERS: Emergency Provider Nurse Practitioner; PCP Internal Medicine Adolescent Medicine
DX: H66.90 Otitis media, unspecified, unspecified ear (principal); J02.9 Acute pharyngitis, unspecified; R05.9 Cough, unspecified; I25.10 Atherosclerotic heart disease of native coronary artery without angina pectoris; N18.2 Chronic kidney disease, stage 2 (mild); I11.9 Hypertensive heart disease without heart failure
CPT/HCPCS: 87636; 99212; 99214; G0463

== ENCOUNTER 2023-01-22 15:50 | Emergency (ER) | payer OTHER, SELFPAY ==
[2023-01-22 15:52] VITALS: BP 117/73; PULSE 85; RESP 16; TEMP 36.6; O2SAT 96; BMI 31.5
--- NOTE | 2023-01-22 16:03 | PC.NURSE ---
Urine collected and sent to lab
--- NOTE | 2023-01-22 16:05 | PC.NURSE ---
Dr. Oneill at [facility] for pt eval
--- NOTE | 2023-01-22 16:12 | CT_ITS ---
PROCEDURE INFORMATION: Exam: CT Abdomen And Pelvis Without Contrast Exam date and time: 01/22/2023 5:17 PM Age: 47 years old Clinical indication: Abdominal pain; Flank; Right; Additional info: R flank/cva rad to groin TECHNIQUE: Imaging protocol: Computed tomography of the abdomen and pelvis without contrast. Radiation optimization: All CT scans at this facility use at least one of these dose optimization techniques: automated exposure control; mA and/or kV adjustment per patient size (includes targeted exams where dose is matched to clinical indication); or iterative reconstruction. REPORTING DATA: Count of CT and Cardiac NM exams in prior 12 months: This patient has received 2 known CTs and 0 known cardiac nuclear medicine studies in the 12 months prior to the current study. COMPARISON: CT ABDOMEN PELVIS WO CON 08/22/2022 6:40 PM FINDINGS: Lungs: Calcified granuloma at the right lung base. Nonspecific subpleural reticulation of the lung bases. Liver: Normal. No mass. Gallbladder and bile ducts: The patient is status post cholecystectomy. Pancreas: Normal. No ductal dilation. Spleen: There are multiple calcifications in the spleen most likely reflects small granulomas. Adrenal glands: Normal. No mass. Kidneys and ureters: There are nonobstructing bilateral intrarenal calculi. Stomach and bowel: Unremarkable. No obstruction. No mucosal thickening. Appendix: No evidence of appendicitis. Intraperitoneal space: Unremarkable. No free air. No significant fluid collection. Vasculature: Multiple pelvic phleboliths are present. Lymph nodes: Unremarkable. No enlarged lymph nodes. Urinary bladder: Unremarkable as visualized. Reproductive: The patient has undergone prior hysterectomy. Bones/joints: Unremarkable. No acute fracture. Soft tissues: Unremarkable. IMPRESSION: Bilateral nonobstructing intrarenal calculi without ureteral calculus or hydronephrosis identified.
--- NOTE | 2023-01-22 16:15 | HMH.EDGENADL ---
Discharge Plan Disposition Patient Disposition: Home, Self-Care Prescriptions Prescriptions: New nitrofurantoin monohyd/m-cryst [Macrobid] 100 mg capsule 100 mg PO BID 5 Days Qty: 10 0RF Rx Instructions: must administer with a meal/food No Action valsartan-hydrochlorothiazide 320-25 mg tablet See Rx Instructions .ROUTE .COMPLEX Qty: 30 5RF Dose Instruction: TAKE ONE TABLET BY MOUTH EVERY DAY Rx Instructions: TAKE ONE TABLET BY MOUTH EVERY DAY estradiol 0.1 mg/24 hr patch semiweekly See Rx Instructions .ROUTE .COMPLEX Qty: 8 2RF Dose Instruction: APPLY 1 PATCH TOPICALLY TWICE WEEKLY Rx Instructions: APPLY 1 PATCH TOPICALLY TWICE WEEKLY carvedilol 25 mg tablet 25 mg PO BID Qty: 60 5RF tizanidine 4 mg tablet 4 mg PO DAILY PRN (Reason: Pain) Patient Comments: TAKE TWO TABLETS BY MOUTH EVERY DAY NEEDED mirtazapine 30 mg tablet 30 mg PO HS Patient Comments: TAKE ONE TABLET BY MOUTH EVERY DAY AT BEDTIME FOR SLEEP hydroxyzine HCl 25 mg tablet 50 mg PO HS Patient Comments: TAKE TWO TABLETS BY MOUTH EVERY DAY AT BEDTIME hydroxyzine HCl 25 mg tablet 50 mg PO HS Patient Comments: TAKE TWO TABLETS BY MOUTH EVERY DAY AT BEDTIME fluticasone propionate 50 mcg/actuation spray,suspension 1 spray INTRANASAL DAILY Patient Comments: instill 1 SPRAY IN EACH NOSTRIL EVERY DAY doxycycline hyclate 100 mg capsule 100 mg PO BID Qty: 14 0RF azithromycin [Zithromax Z-Matthew] 250 mg tablet See Rx Instructions .ROUTE .COMPLEX 5 Days Qty: 6 0RF Rx Instructions: For 250 mg dose pack: take 500 mg today (day 1), then 250 mg for 4 days (days 2-5) methocarbamol 500 mg tablet 500 mg PO TID PRN (Reason: muscle spasm) Qty: 30 0RF Referrals Follow up/Referrals: David Garcia MD [Primary Care Provider] - See instructions Activity Restrictions/Add. Instructions Additional Instructions/Restrictions: At this time is felt you are safe to be discharged home. If new or worsening symptoms please do not hesitate to return the emergency department. Please take your antibiotics as prescribed. Clinical Impressions Clinical Impression: UTI (urinary tract infection), Flank pain Instructions Patient Instructions: DI for Low Back Pain Discharge ED Provider: Garland Oneill General Adult HPI General Chief complaint: Back Pain/Injury Stated complaint: back pain Time Seen by Provider: 01/22/23 16:02 Mode of Arrival: Ambulatory Source of Information: Patient Limitations: No Limitations Description of Symptoms (Recalled from ER Triage Doc. by RN): Pt c/o R sided lower back pain for approx 1 week. Pt reports pain comes in waves , describes it as throbbing in nature. Pt reports does have painful urination at times. Pt reports does have hx of chronic back pain, but reports this pain is different than her normal. History of Present Illness HPI narrative: Patient is a 47-year-old female with past medical history of chronic back pain, previous ureterolithiasis requiring lithotripsy presents emergency department for evaluation of right-sided back pain. Onset was acute, over the last 5 to 7 days, radiates into the right flank and groin. There is associated dysuria. Still able to ambulate, no trauma. Related Data Home Medications Medication Instructions Recorded Confirmed fluticasone propionate 50 1 spray intranasal DAILY Allergic 06/25/22 06/25/22 mcg/actuation nasal Rhinitis spray,suspension hydroxyzine HCl 25 mg tablet 50 mg PO HS Anxiety 06/25/22 06/25/22 hydroxyzine HCl 25 mg tablet 50 mg PO HS Anxiety 06/25/22 06/25/22 mirtazapine 30 mg tablet 30 mg PO HS Sleep 06/25/22 06/25/22 tizanidine 4 mg tablet 4 mg PO DAILY PRN Pain 06/25/22 06/25/22 Previous Rx's Medication Instructions Recorded doxycycline hyclate 100 mg capsule 100 mg PO BID #14 caps 06/25/22 valsartan 320 See Rx Instructions .Route 08/07/
[2023-01-22 16:21] LABS: Microscopic, Urine URINE MICROSCOPIC (MICROSCOPIC)
[2023-01-22 16:27] LABS: Appearance,Urine CLEAR (Clear); Bilirubin,Urine Negative (Negative); Blood, Urine Negative (Negative); Color,Urine YELLOW (Yellow); Glucose,Urine (UA) 2+ (Negative); Ketones,Urine Negative (Negative); Leukocyte Esterase,Urine 1+ (Negative); Nitrate,Urine POSITIVE (Negative); Protein,Urine Negative (Negative); Specific Gravity, Urine 1.025 (1.005-1.030); Urobilinogen,Urine 0.2 EU/dl (0.2)
[2023-01-22 16:31] VITALS: BP 117/73; PULSE 73; O2SAT 94
[2023-01-22 16:48] LABS: Bacteria,Urine Trace /lpf; Squamous Epithelial Cell,Urine Occasional #/hpf (0-5); WBC,Urine 20-50 #/hpf (0-3); Yeast,Urine Occasional /lpf
[2023-01-22 16:50] LABS: Chloride 105 mmol/L (98-107); Potassium 3.1 mmoL/L (3.5-5.1); Sodium 144 mmol/L (136-145)
[2023-01-22 16:53] LABS: Alanine Aminotransferase 36 U/L (12-78); Albumin Level 4.1 g/dl (3.5-5.0); Albumin/Globulin Ratio 1.1 (1.1-1.8); Alkaline Phosphatase 73 U/L (38-126); Anion Gap 14.1 mEq/L (5-15); Aspartate Amino Transferase 42 U/L (14-36); Basophils # 0.1 K/mm3 (0-0.2); Basophils % 0.5 % (0.1-2.0); Bilirubin,Total 0.8 mg/dl (0.2-1.3); Blood Urea Nitrogen 27 mg/dl (7-17); Carbon Dioxide 28 mmol/L (22.0-30.0); Creatinine Clearance Estimated 93 mL/min (50-200); Eosinophils # 0.4 K/mm3 (0.0-0.4); Eosinophils % 4.1 % (0.1-12.0); Estimated Glomerular Filt Rate 49 ml/min (>60); GFR (African American) 59 ML/MIN (>60); Globulin 3.7 g/dL (1.3-3.2); Hematocrit 38.3 % (37.0-47.0); Hemoglobin 12.3 g/dL (12.2-16.2); Lymphocytes # 3.7 K/mm3 (0.7-4.5); Lymphocytes % 36.1 % (10-50); Mean Corpuscular HGB Conc 32.2 g/dL (31.8-35.4); Mean Corpuscular Volume 90.3 fl (81-99); Mean Platelet Volume 7.7 fl (7.4-10.4); Monocytes # 0.5 K/mm3 (0.1-1.0); Monocytes % 4.7 % (1.7-9.3); Neutrophils # 5.6 K/mm3 (1.8-7.8); Neutrophils % 54.6 % (37.0-80.0); Platelet Count 343 K/mm3 (142-424); Red Blood Count 4.24 M/mm3 (4.20-5.40); Red Cell Distribution Width 13.2 % (11.5-17.5); Total Protein,Serum 7.8 g/dl (6.3-8.2); White Blood Count 10.2 K/mm3 (4.8-10.8)
[2023-01-22 16:54] LABS: Calcium 8.9 mg/dl (8.4-10.2); Glucose 107 mg/dl (74-100)
[2023-01-22 17:06] LABS: HCG Qualitative, Serum Negative (Negative)
[2023-01-22 17:09] VITALS: BP 102/60; PULSE 66; O2SAT 92
--- NOTE | 2023-01-22 17:10 | PC.NURSE ---
Rounded on patient; nothing needed at this time call aaron within reach
[2023-01-22 17:30] VITALS: BP 104/58; PULSE 63; O2SAT 96
[2023-01-22 18:52] VITALS: BP 103/58; PULSE 64; RESP 18; TEMP 36.6; O2SAT 96
== END 2023-01-22 18:52 | disposition home or self-care (01) ==
PROVIDERS: Emergency Provider Emergency Medicine; PCP Internal Medicine Adolescent Medicine
DX: R10.9 Unspecified abdominal pain (principal); M54.50 Low back pain, unspecified; N39.0 Urinary tract infection, site not specified; I65.29 Occlusion and stenosis of unspecified carotid artery; I12.9 Hypertensive chronic kidney disease with stage 1 through stage 4 chronic kidney disease, or unspecified chronic kidney disease; N18.2 Chronic kidney disease, stage 2 (mild); I20.9 Angina pectoris, unspecified; G43.909 Migraine, unspecified, not intractable, without status migrainosus; M54.16 Radiculopathy, lumbar region
CPT/HCPCS: 74176; 80053; 81001; 84703; 85025; 87086; 87088; 87186; 96361; 96374; 96375; 99285; J0131; J2405

== ENCOUNTER → 2023-03-02 13:38 | Outpatient (CLI) | payer OTHER, SELFPAY ==
[2023-03-02 14:37] LABS: Basophils # 0.1 K/mm3 (0-0.2); Basophils % 0.6 % (0.1-2.0); Eosinophils # 0.4 K/mm3 (0.0-0.4); Eosinophils % 3.9 % (0.1-12.0); Hematocrit 39.8 % (37.0-47.0); Hemoglobin 13.5 g/dL (12.2-16.2); Lymphocytes % 33.5 % (10-50); Mean Corpuscular HGB Conc 33.9 g/dL (31.8-35.4); Mean Corpuscular Hemoglobin 31.5 pg (27.0-31.2); Mean Platelet Volume 7.5 fl (7.4-10.4); Monocytes # 0.6 K/mm3 (0.1-1.0); Monocytes % 6.4 % (1.7-9.3); Neutrophils % 55.6 % (37.0-80.0); Platelet Count 331 K/mm3 (142-424); Red Blood Count 4.28 M/mm3 (4.20-5.40); Red Cell Distribution Width 13.2 % (11.5-17.5)
[2023-03-02 15:15] LABS: Alanine Aminotransferase 34 U/L (12-78); Albumin Level 4.7 g/dl (3.5-5.0); Albumin/Globulin Ratio 1.5 (1.1-1.8); Alkaline Phosphatase 84 U/L (38-126); Anion Gap 14.5 mEq/L (5-15); Aspartate Amino Transferase 41 U/L (14-36); Bilirubin,Total 0.7 mg/dl (0.2-1.3); Blood Urea Nitrogen 15 mg/dl (7-17); Carbon Dioxide 25 mmol/L (22.0-30.0); Chloride 105 mmol/L (98-107); Estimated Glomerular Filt Rate 77 ml/min (>60); GFR (African American) 93 ML/MIN (>60); Globulin 3.2 g/dL (1.3-3.2); Glucose 98 mg/dl (74-100); Potassium 3.5 mmoL/L (3.5-5.1); Sodium 141 mmol/L (136-145); Total Protein,Serum 7.9 g/dl (6.3-8.2)
[2023-03-02 15:44] LABS: Thyroid Stimulating Hormone 1.04 uIU/mL (0.465-4.68)
[2023-03-02 16:21] LABS: Vitamin B12 409 pg/mL (239-931)
[2023-03-02 16:25] LABS: Hemoglobin A1C 4.9 % (4.0-6.0)
[2023-03-02 16:50] LABS: Folate 5.79 ng/mL
[2023-03-02 17:47] LABS: Creatinine,Urine Random 127 mg/dL (Not Estab.)
== END ==
PROVIDERS: PCP Nurse Practitioner Family; Visit Provider Nurse Practitioner Family
DX: E11.9 Type 2 diabetes mellitus without complications (principal)
CPT/HCPCS: 36415; 80053; 82043; 82570; 82607; 82746; 83036; 84443; 85025

== ENCOUNTER 2023-06-04 12:49 | Outpatient (CLI) | payer OTHER, SELFPAY ==
--- NOTE | 2023-06-04 12:55 | XR_ITS ---
FINAL REPORT CLINICAL HISTORY: right hand cyst FINDINGS: RIGHT HAND Three views demonstrate no acute fracture or dislocation. There are moderate degenerative changes of the DIP joints. An accessory ossicle or old fracture is seen adjacent to the ulnar styloid process. There is no evidence of bony destruction. The visualized joint spaces are normally aligned. The soft tissues are unremarkable. IMPRESSION: Degenerative changes without evidence of bony destruction or fracture. Reviewed, Interpreted and Dictated by Eve Hernandes MD Transcribed by Danielle Alicea Authenticated and [facility]
== END 2023-06-04 23:59 ==
LOC: RAD 12:49
PROVIDERS: PCP Internal Medicine Adolescent Medicine; Visit Provider Orthopaedic Surgery
DX: M79.641 Pain in right hand (principal)
CPT/HCPCS: 73130

== ENCOUNTER 2023-06-20 12:31 | Outpatient (CLI) | payer OTHER, SELFPAY ==
[2023-06-20 12:49] LABS: Basophils # 0.1 K/mm3 (0-0.2); Basophils % 0.6 % (0.1-2.0); Eosinophils # 0.6 K/mm3 (0.0-0.4); Eosinophils % 5.4 % (0.1-12.0); Hematocrit 38.9 % (37.0-47.0); Hemoglobin 12.8 g/dL (12.2-16.2); Lymphocytes # 4.5 K/mm3 (0.7-4.5); Lymphocytes % 43.2 % (10-50); Mean Corpuscular Hemoglobin 30.6 pg (27.0-31.2); Mean Corpuscular Volume 92.7 fl (81-99); Mean Platelet Volume 7.1 fl (7.4-10.4); Monocytes # 0.5 K/mm3 (0.1-1.0); Monocytes % 4.5 % (1.7-9.3); Neutrophils # 4.9 K/mm3 (1.8-7.8); Neutrophils % 46.3 % (37.0-80.0); Platelet Count 365 K/mm3 (142-424); Red Blood Count 4.19 M/mm3 (4.20-5.40); Red Cell Distribution Width 13.4 % (11.5-17.5); White Blood Count 10.5 K/mm3 (4.8-10.8)
[2023-06-20 13:22] LABS: Alanine Aminotransferase 26 U/L (12-78); Albumin Level 4.4 g/dl (3.5-5.0); Albumin/Globulin Ratio 1.4 (1.1-1.8); Alkaline Phosphatase 91 U/L (38-126); Anion Gap 9.6 mEq/L (5-15); Aspartate Amino Transferase 34 U/L (14-36); Bilirubin,Total 0.6 mg/dl (0.2-1.3); Blood Urea Nitrogen 18 mg/dl (7-17); Calcium 9.7 mg/dl (8.4-10.2); Carbon Dioxide 32 mmol/L (22.0-30.0); Chloride 105 mmol/L (98-107); Estimated Glomerular Filt Rate 67 ml/min (>60); GFR (African American) 82 ML/MIN (>60); Globulin 3.1 g/dL (1.3-3.2); Glucose 92 mg/dl (74-100); Potassium 3.6 mmoL/L (3.5-5.1); Sodium 143 mmol/L (136-145); Total Protein,Serum 7.5 g/dl (6.3-8.2)
== END 2023-06-20 23:59 ==
LOC: LAB 12:31
PROVIDERS: PCP Nurse Practitioner Family; Visit Provider Orthopaedic Surgery
DX: M67.441 Ganglion, right hand (principal); Z01.812 Encounter for preprocedural laboratory examination
CPT/HCPCS: 36415; 80053; 85025

== ENCOUNTER 2023-06-24 11:49 | Day surgery (SDC) | payer OTHER, SELFPAY ==
[2023-06-23 07:58] VITALS: BMI 45.1
[2023-06-24 12:17] VITALS: BP 118/77; PULSE 58; RESP 18; TEMP 36.2; O2SAT 98
[2023-06-24] MEDS: LACTATED RINGERS 1000ML 1,000 ML 25 ML IV (12:29)
[2023-06-24 12:35] LABS: POC Glucose,Bedside 82 (70-110)
--- NOTE | 2023-06-24 13:30 | P.PNANES_ITS ---
[facility] Disclaimer: The information contained in this section may have been updated after the patient was seen, as this information can be updated by other users. Medical History Carotid artery disease Chest pain CKD (chronic kidney disease) stage 2, GFR 60-89 ml/min Daytime somnolence Dyspnea Facet arthropathy, lumbar Foot pain Lumbar radiculopathy Malignant essential hypertension Migraine Other forms of angina pectoris Radiculopathy due to lumbar intervertebral disc disorder Snoring SOB (shortness of breath) Swelling Witnessed apneic spells Surgical History History of appendectomy History of cholecystectomy History of hysterectomy History of lithotripsy History of tonsillectomy Family History Other Family history of diabetes mellitus type II Family history of stroke Social History Smoking Status: Never smoker second hand exposure: Yes alcohol intake: never substance use type: denies use current occupational status: unemployed Travel in the last 8 weeks: None household members: family housing: house number of children: 4 current occupational exposures/hazards: No caffeine: Yes [facility] [place] Anesthesia Checklist Patient Identification Patient Identification: Arm Band Structural Data Admitted From: Home Planned Operative Procedure/s: Excision of Ganglion Cyst Right Thumb Consent for Planned Operative Procedure(s) Verified: Yes Verified Documents: Surgical Consent and History and Physical NPO Status Verified Time NPO: 00:00 Additional verifications Anesthesia Reactions: No Hx Blood Transfusions: No Blood Transfusion Reaction: No Airway Assessment Mallampati Score:: Class II C-Spine Mobility Assessed: Yes TMJ Mobility Assessed: Yes Dentition: Good Dentition Neurological Assessment Level of Consciousness: Awake and Alert Anesthesia Plan Anesthesia Risk discussed: Yes Anesthesia Plan: Verified ASA Class: III Anesthesia Type: MAC
[2023-06-24] MEDS: CLINDAMYCIN PHOSPHATE/D5W 900 MG/50 ML PIGGYBACK 100 MG IV (14:05)
[2023-06-24] MEDS: LIDOCAINE 1% W/EPI 1:100,000 20ML VIAL 20 ML (14:14)
--- NOTE | 2023-06-24 14:27 | EXP.OP.NOTE ---
Date of procedure: 06/24/23 Pre-op Diagnosis:: Ganglion cyst right thumb Post-op Diagnosis:: Same Procedure performed:: Excision ganglion cyst dorsal IP joint right thumb Surgeon:: Rajendra Garcia DO Anesthesia: MAC and local Estimated blood loss (mL): 0 Operative findings:: Ganglion cyst Operative note:: Patient is identified preoperatively. Right hand marked with yes my initials and transported operative suite placed upon operating bed right upper extremity prepped and draped patient given sedation and local anesthesia was then infiltrated to the planned incision site over the ganglion cyst of the IP joint of the right thumb. This was done after final operative timeout was performed to identify proper patient procedure and extremity. Everyone involved the case agreed. There were no counter indications to beginning. She did receive preoperative antibiotics. Marking pen was then used to make plan incision over the dorsal IP joint of the thumb skin knife was used incise through skin careful dissection is taken down with the scissors to identify a ganglion cyst on the extensor surface of the IP joint this was consistent with a ganglion cyst that was small in nature and was ruptured upon removal. The capsule of the ganglion cyst was removed. Irrigation of the wound was performed. Skin closed with 4-0 nylon stitch sterile hand dressing placed. Patient waken sedation taken recovery stable condition. Condition: stable Disposition: PACU Complications:: None apparent
[2023-06-24 14:29] VITALS: BP 102/68; PULSE 57; RESP 15; TEMP 36.1; O2SAT 99
--- NOTE | 2023-06-24 14:43 | EXP.ANES.I ---
[facility] Anesthesia Record Part I Anesthesia Record I Intake, IV Amount: 900 Hydration: Adequate Estimated blood loss (mL): 1 Urine output (mL): 0 Blood Products used (#): none Blood Pressure: 102/68 SaO2: 99 Pulse Rate: 61 Airway Patency: Patent Respiratory Rate: 16 Temperature: 97.0 F Patient is:: Awake (Talking) and Stable Stable to PACU at:: 14:34
[2023-06-24 14:44] VITALS: BP 102/68; BP 124/80; PULSE 54; PULSE 61; RESP 16; TEMP 36.1; O2SAT 99
[2023-06-24 14:51] VITALS: BP 102/71; PULSE 54; RESP 18; O2SAT 100
== END 2023-06-24 14:53 | disposition home or self-care (01) ==
PROVIDERS: PCP Internal Medicine Adolescent Medicine; Visit Provider Orthopaedic Surgery
PROC: (CPT 26160; principal; 2023-06-24 12:45)
DX: M67.441 Ganglion, right hand (principal)
CPT/HCPCS: 26160; 82962; 96374

== ENCOUNTER 2023-06-30 14:11 | Emergency (ER) | payer OTHER, SELFPAY ==
[2023-06-30 14:30] VITALS: BP 116/73; PULSE 84; RESP 19; TEMP 36.7; O2SAT 99; BMI 37.7
--- NOTE | 2023-06-30 14:47 | ED_ITS ---
Discharge Plan Disposition Patient Disposition: Home, Self-Care Condition: Good Prescriptions Prescriptions: New oseltamivir [Tamiflu] 75 mg capsule 75 mg PO Q12H 5 Days Qty: 10 0RF No Action hydroxyzine pamoate 50 mg capsule 50 mg PO HS Patient Comments: TAKE TWO CAPSULES BY MOUTH EVERY NIGHT NEEDED FOR SLEEP methocarbamol 750 mg tablet 750 mg PO DAILY Patient Comments: TAKE 1 OR 2 TABLET(S) BY MOUTH TWICE DAILY FOR BACK SPASMS MAY CAUSE DROWSINESS omeprazole 20 mg capsule,delayed release(DR/EC) 20 mg PO DAILY Patient Comments: TAKE ONE CAPSULE BY MOUTH EVERY DAY sertraline 50 mg tablet 50 mg PO DAILY dapagliflozin propanediol [Farxiga] 10 mg tablet 10 mg PO DAILY Patient Comments: TAKE ONE TABLET BY MOUTH EVERY DAY Referrals Follow up/Referrals: Erica Tucker APRN [Primary Care Provider] - See instructions Activity Restrictions/Add. Instructions Additional Instructions/Restrictions: * Start Tamiflu today if you are going to take it. Discussed risk and possible benefits. * Lots of rest * Increase Fluids water, Gatorade, powerade, pedialyte,if /toddler/child * Alternate Tylenol and / or ibuprofen as discussed for fever, aches, chills Follow up IMMEDIATELY with your family doctor for new or worsening Symptoms OR no noticeable improvement over the next 48-72 hours, 911 for difficulty or breathing * You or your child area contagious until no fever, aches, chills for 24 hours with medication for symptoms * Help Prevent the spread of influenza: * ?Wash your hands often. Use soap and water. Wash your hands after you use the bathroom, change a child's diapers, or sneeze. Wash your hands before you prepare or eat food. Use gel hand cleanser that has 60% alcohol, when soap and water are not available. Do not touch your eyes, nose, or mouth unless you have washed your hands first. * Cover your mouth when you sneeze or cough. Cough into a tissue or the bend of your arm. If you use a tissue, throw it away immediately and wash your hands. * Clean shared items with a germ-killing pin cleaner. Clean table surfaces, doorknobs, and light switches. Do not share towels, silverware, and dishes with people who are sick. Wash bed sheets, towels, silverware, and dishes with soap and water. * Wear a mask over your mouth and nose if you are sick. The face mask may help protect others from becoming infected with the flu. Wear the mask when in common areas of your home or if you seek care with a healthcare provider. * Stay away from others if you are sick. Stay at home until 24 hours after your fever and symptoms are gone. Clinical Impressions Clinical Impression: Influenza Instructions Patient Instructions: DI for Influenza -- Adult, Influenza, Oseltamivir Discharge ED Provider: Kenzie Damon [facility] [place] HPI General Stated complaint: headache cough congestion fever chills bodyaches Mode of Arrival: Ambulatory Source of Information: Patient Limitations: No Limitations Time Seen by Provider: 06/30/23 14:48 Description of Symptoms (Recalled from Triage Doc. by RN): PATIENT C/O HEADACHE, BODY ACHES, FEVER AND COUGH SINCE YESTERDAY HEENT Symptoms (Recalled from RN notes): Yes Resp Symptoms (Recalled from RN notes): Yes Skin Symptoms (Recalled from RN notes): No MS Symptoms (Recalled from RN notes): No Functional Status (Recalled from RN notes): WNL History of Present Illness Provider Complaint: Patient states that the whole house has been sick and she started yesterday with headache, body aches, fever, chills and cough States today she wasnt feeling any better so she came in to get checked Related Data Home Medications Medication Instructions Recorded Confirmed dapagliflozin propanediol 10 mg 10 mg PO DAILY 06/30/23 06/30/23 tablet (Farxiga) hydroxyzine pamoate 50 mg capsule 50 mg PO HS 06/30/23 06/30/23 methocarbamol 750 mg tablet 750 mg PO DAILY 06/30/23 06/30/23 omeprazole 20 mg capsule,delayed 20 mg PO DAILY 06/30/23 06/30/23 release sertraline 50 mg tablet 50 mg PO DAILY 06/30/23 06/30/23 Previous Rx's Medication Instructions Recorded oseltamivir 75 mg capsule (Tamiflu) 75 mg PO Q12H 5 days #10 caps 06/30/23 Allergies Allergy/AdvReac Type Severity Reaction Status Date / Time amlodipine Allergy Intermediate swelling Verified 06/24/23 12:16 legs and feet Penicillins [PENICILLINS] Allergy Intermediate I-RASH Verified 06/24/23 12:16 metoclopramide [From REGLAN] Allergy Mild NA-HALLUCIN Verified 06/24/23 12:16 ATIONS amoxicillin Allergy Verified 06/24/23 12:16 ibuprofen Allergy Nausea Verified 06/24/23 12:16 Worker's Comp Is this a Worker's Comp case?: [facility] Dis[facility]: The information contained in this section may have been updated after the patient was seen, as this information can be updated by other users. Medical History (Updated 06/30/23 @ 14:51 by Kenzie Damon APRN) Carotid artery disease Chest pain CKD (chronic kidney disease) stage 2, GFR 60-89 ml/min Daytime somnolence Dyspnea Facet arthropathy, lumbar Foot pain Lumbar radiculopathy Malignant essential hypertension Migraine Other forms of angina pectoris Radiculopathy due to lumbar intervertebral disc disorder Snoring SOB (shortness of breath) Swelling Witnessed apneic spells Surgical History History of appendectomy History of cholecystectomy History of hysterectomy History of lithotripsy History of tonsillectomy Family History Other Family history of diabetes mellitus type II Family history of stroke Social History Smoking Status: Never smoker second hand exposure: Yes alcohol intake: never substance use type: denies use current occupational status: unemployed Travel in the last 8 weeks: None household members: family housing: house number of children: 4 current occupational exposures/hazards: No caffeine: Yes ROS Obtained: Yes All systems reviewed & no additional complaints except as documented and Yes Systems reviewed as appropriate & no additional complaints except as documented Constitutional Constitutional: Reports system reviewed and no additional complaints, except as documented, Reports as per HPI, Reports body ache, Reports chills, Reports fever(s) and Reports headache(s) ENT Ears, Nose, Mouth, and Throat: Reports system reviewed and no additional complaints, except as documented, Reports as per HPI, Reports headache(s) and Reports nasal congestion Cardiovascular Cardiovascular: Reports system reviewed and no additional complaints, except as documented and Reports as per HPI Respiratory Respiratory: Reports system reviewed and no additional complaints, except as documented, Reports as per HPI, Denies shortness of breath and Reports cough Gastrointestinal Gastrointestingal: Reports system reviewed and no additional complaints, except as documented and as per HPI Neurologic Neurologic: Reports headache(s) Physical Exam General General appearance: alert and in no apparent distress ENT ENT exam: Present mucous membranes moist Respiratory Respiratory exam: Present normal lung sounds bilaterally; Absent respiratory distress or wheezes Cardiovascular Cardiovascular exam: Present regular rate, normal rhythm and normal heart sounds Neurological Exam Neurological exam: Present alert, oriented X3 and normal gait Medical Decision Making Mark Inquiry Pt receiving controlled substance: No Mark was queried for this patient: No Vital Signs: 06/30/23 14:30 Temperature 98.1 F Temperature Source Oral Pulse Rate [Left Brachial] 84 Respiratory Rate 19 Blood Pressure [Left Arm] 116/73 Blood Pressure Mean [Left Arm] 87 Blood Pressure Source [Left Arm] Automatic Cuff Blood Pressure Position [Left Arm] Sitting 02 Sat by Pulse Oximetry 99 Oxygen Delivery Method Room Air Lab Data Lab results reviewed: Yes I reviewed the patient's lab results.
[2023-06-30 14:59] LABS: UTC Influenza A Antigen Positive (Negative); UTC Influenza B Antigen Negative (Negative)
[2023-06-30 15:00] VITALS: BP 116/73; PULSE 84; RESP 19; TEMP 36.7; O2SAT 99
== END 2023-06-30 15:09 | disposition home or self-care (01) ==
PROVIDERS: Emergency Provider Nurse Practitioner; PCP Nurse Practitioner Family
DX: J10.1 Influenza due to other identified influenza virus with other respiratory manifestations (principal); R50.9 Fever, unspecified; R51.9 Headache, unspecified; R05.9 Cough, unspecified; R09.81 Nasal congestion; N18.2 Chronic kidney disease, stage 2 (mild); I11.9 Hypertensive heart disease without heart failure; I25.10 Atherosclerotic heart disease of native coronary artery without angina pectoris
CPT/HCPCS: 87804; 99212; 99214; G0463

== ENCOUNTER 2023-08-01 14:31 | Emergency (ER) | payer OTHER, SELFPAY ==
[2023-08-01 14:50] VITALS: BP 198/97; PULSE 82; RESP 23; TEMP 36.8; O2SAT 99; BMI 40.3
--- NOTE | 2023-08-01 15:00 | EXP.UTC ---
Discharge Plan Disposition Patient Disposition: Home, Self-Care Condition: Good Prescriptions Prescriptions: New azithromycin [Zithromax] 250 mg tablet 250 mg PO UD DOSE PK Qty: 6 0RF Rx Instructions: Take two (2) tablets today, then one (1) tablet days #2 thru #5 benzonatate 100 mg capsule 100 mg PO TIDP PRN (Reason: Cough) Qty: 30 0RF methylprednisolone 4 mg Tablets,Dose Pack 4 mg PO DIRECTED 6 Days Qty: 21 0RF Rx Instructions: Take 1 pack as directed for 6 days guaifenesin [Mucinex] 600 mg tablet extended release 12hr 600 - 1,200 mg PO BIDP PRN (Reason: Congestion) Qty: 30 0RF No Action hydroxyzine pamoate 50 mg capsule 50 mg PO HS Patient Comments: TAKE TWO CAPSULES BY MOUTH EVERY NIGHT NEEDED FOR SLEEP methocarbamol 750 mg tablet 750 mg PO DAILY Patient Comments: TAKE 1 OR 2 TABLET(S) BY MOUTH TWICE DAILY FOR BACK SPASMS MAY CAUSE DROWSINESS omeprazole 20 mg capsule,delayed release(DR/EC) 20 mg PO DAILY Patient Comments: TAKE ONE CAPSULE BY MOUTH EVERY DAY sertraline 50 mg tablet 50 mg PO DAILY dapagliflozin propanediol [Farxiga] 10 mg tablet 10 mg PO DAILY Patient Comments: TAKE ONE TABLET BY MOUTH EVERY DAY oseltamivir [Tamiflu] 75 mg capsule 75 mg PO Q12H 5 Days Qty: 10 0RF Referrals Follow up/Referrals: David Garcia MD [Primary Care Provider] - See instructions Activity Restrictions/Add. Instructions Additional Instructions/Restrictions: Drink plenty of fluids. Take tylenol or ibuprofen for pain or fever. Take the medications as directed. Follow up with your regular doctor. GO TO THE ER FOR ANY WORSENING SYMPTOMS Clinical Impressions Clinical Impression: Acute bronchitis, Acute viral syndrome Stand Alone Forms Stand Alone Forms: Work/School Release Instructions Patient Instructions: Acute Bronchitis, DI for Acute Bronchitis, DI for Viral Syndrome Discharge ED Provider: Garry Parry [facility] [place] HPI General Stated complaint: DENNISON, congestion, body aches, fever Time Seen by Provider: 08/01/23 15:00 History of Present Illness Provider Complaint: She states that she had influenza around 3 weeks ago. She states that she did begin to feel some better, but she has never really got better. She has kept a cough and sinus congestion since then. Over the past 4 days she has began to run a fever that has went as high as 102. Related Data Home Medications Medication Instructions Recorded Confirmed dapagliflozin propanediol 10 mg 10 mg PO DAILY 06/30/23 07/09/23 tablet (Farxiga) hydroxyzine pamoate 50 mg capsule 50 mg PO HS 06/30/23 07/09/23 methocarbamol 750 mg tablet 750 mg PO DAILY 06/30/23 07/09/23 omeprazole 20 mg capsule,delayed 20 mg PO DAILY 06/30/23 07/09/23 release sertraline 50 mg tablet 50 mg PO DAILY 06/30/23 07/09/23 Previous Rx's Medication Instructions Recorded oseltamivir 75 mg capsule (Tamiflu) 75 mg PO Q12H 5 days #10 caps 06/30/23 azithromycin 250 mg tablet 250 mg PO UD DOSE PK #6 tabs 08/01/23 (Zithromax) benzonatate 100 mg capsule 100 mg PO TIDP PRN Cough #30 caps 08/01/23 guaifenesin 600 mg tablet, 600 - 1,200 mg (1 - 2 x 600 mg) PO 08/01/23 extended release 12 hr (Mucinex) BIDP PRN Congestion #30 tabs methylprednisolone 4 mg tablets in 4 mg PO DIRECTED 6 days #21 tabs 08/01/23 a dose pack Allergies Allergy/AdvReac Type Severity Reaction Status Date / Time amlodipine Allergy Intermediate swelling Verified 07/09/23 13:17 legs and feet Penicillins [PENICILLINS] Allergy Intermediate I-RASH Verified 07/09/23 13:17 metoclopramide [From REGLAN] Allergy Mild NA-HALLUCIN Verified 07/09/23 13:17 ATIONS amoxicillin Allergy Verified 07/09/23 13:17 ibuprofen Allergy Nausea Verified 07/09/23 13:17 [facility] Disclaimer: The information contained in this section may have been updated after the patient was seen, as this information can be updated by other users. Medical History Witnessed apneic spells Daytime somnolence Snoring Dyspnea Facet arthropathy, lumbar Foot pain Carotid artery disease CKD (chronic kidney disease) stage 2, GFR 60-89 ml/min Lumbar radiculopathy Radiculopathy due to lumbar intervertebral disc disorder Chest pain Swelling SOB (shortness of breath) Other forms of angina pectoris Malignant essential hypertension Migraine Surgical History History of lithotripsy History of appendectomy History of tonsillectomy History of hysterectomy History of cholecystectomy Family History Other Family history of diabetes mellitus type II Family history of stroke Social History Smoking Status: Never smoker second hand exposure: Yes alcohol intake: never substance use type: denies use current occupational status: unemployed Travel in the last 8 weeks: None household members: family housing: house number of children: 4 current occupational exposures/hazards: No caffeine: Yes ROS Obtained: Yes All systems reviewed & no additional complaints except as documented Constitutional Constitutional: Reports chills and Reports fever(s) Eyes Eyes: Denies eye discharge ENT Ears, Nose, Mouth, and Throat: Reports as per HPI Cardiovascular Cardiovascular: Denies chest pain Respiratory Respiratory: Denies shortness of breath, Reports chest congestion, Reports cough, Denies stridor and Denies wheezing Gastrointestinal Gastrointestingal: Reports nausea; Denies abdominal pain, constipation, cramping, diarrhea or vomiting Musculoskeletal Musculoskeletal: Denies arthralgias Integumentary/Breasts Skin/Breast: Denies rash Neurologic Neurologic: Denies paresthesias Allergic/Immunologic Allergic/Immunologic: Denies wheezing Physical Exam General General appearance: alert and in no apparent distress Eye Eye exam: Present normal appearance, PERRL and EOMI ENT ENT exam: Present mucous membranes moist and normal external ear exam Expanded ENT Exam External ear exam: Present normal external inspection TM/Canal exam: Bilateral TM: erythema and bulging Nose exam: Absent sinus tenderness Nasal speculum exam: Bilateral: normal Mouth exam: Present normal external inspection; Absent drooling Teeth exam: Present normal inspection Throat exam: Present tonsillar erythema and tonsillomegaly Neck Neck exam: Present normal inspection, full ROM and trachea midline; Absent tenderness, lymphadenopathy or thyromegaly Chest Chest inspection: Present normal inspection and symmetric chest wall rise; Absent tenderness or rash Respiratory Respiratory exam: Present normal lung sounds bilaterally; Absent respiratory distress, wheezes, stridor or accessory muscle use Cardiovascular Cardiovascular exam: Present regular rate, normal rhythm and normal heart sounds Abdominal Exam Abdominal exam: Present soft; Absent distention, tenderness, guarding, rebound or rigidity Extremities Exam Extremities exam: Present normal inspection, full ROM and normal capillary refill; Absent tenderness or calf tenderness Back Exam Back exam: Present normal inspection and full ROM; Absent tenderness Neurological Exam Neurological exam: Present alert and oriented X3 Psychiatric Psychiatric exam: Present normal affect and normal mood Skin Skin exam: Present warm, dry, intact and normal color Lymphatic Lymphatic Findings: no adenopathy Medical Decision Making Medical Records Medical records reviewed: No I reviewed the patient's medical records. Mark Inquiry Pt receiving controlled substance: No Lab Data Lab results reviewed: Yes I reviewed the patient's lab results. Radiology Data #1: Image(s): Chest Image Reviewed: Yes I reviewed the patient's radiology image and Yes I have reviewed radiologist's interpretation Preliminary Findings: Abnormal PROCEDURE INFORMATION: Exam: XR Chest Exam date and time: 08/01/2023 3:04 PM Age: 48 years old Clinical indication: Cough and fever; Additional info: Cough, congestion, fever TECHNIQUE: Imaging protocol: Radiologic exam of the chest. Views: 2 views. Total images: 2 COMPARISON: CR XR CHEST PORTABLE 06/25/2022 9:12 PM FINDINGS: Lungs: Atelectatic and/or early infiltrative changes noted within the right lower lobe. Bilateral hyperinflation is present. Pleural spaces: Unremarkable. No pleural effusion. No pneumothorax. Heart/Mediastinum: Unremarkable. No cardiomegaly. Bones/joints: Unremarkable. IMPRESSION: 1. Atelectatic and/or early infiltrative changes noted within the right lower lobe. 2. Bilateral hyperinflation is present.
--- NOTE | 2023-08-01 15:09 | XR_ITS ---
PROCEDURE INFORMATION: Exam: XR Chest Exam date and time: 08/01/2023 3:04 PM Age: 48 years old Clinical indication: Cough and fever; Additional info: Cough, congestion, fever TECHNIQUE: Imaging protocol: Radiologic exam of the chest. Views: 2 views. Total images: 2 COMPARISON: CR XR CHEST PORTABLE 06/25/2022 9:12 PM FINDINGS: Lungs: Atelectatic and/or early infiltrative changes noted within the right lower lobe. Bilateral hyperinflation is present. Pleural spaces: Unremarkable. No pleural effusion. No pneumothorax. Heart/Mediastinum: Unremarkable. No cardiomegaly. Bones/joints: Unremarkable. IMPRESSION: 1. Atelectatic and/or early infiltrative changes noted within the right lower lobe. 2. Bilateral hyperinflation is present.
[2023-08-01 15:42] VITALS: BP 198/97; PULSE 82; RESP 23; TEMP 36.8; O2SAT 99
[2023-08-01 15:54] LABS: Adenovirus,PCR Not Detected (NotDetected); Coronavirus 229E Not Detected (NotDetected); Coronavirus NL63 Not Detected (NotDetected); Coronavirus OC43 Not Detected (NotDetected); Coronovirus HKU1,PCR Not Detected (NotDetected); Human Metapneumovirus Not Detected (NotDetected); Influenza A, PCR Not Detected (NotDetected); Influenza AH1, 2009 Not Detected (NotDetected); Influenza AH1, PCR Not Detected (NotDetected); Influenza AH3,PCR Not Detected (NotDetected); Influenza B, PCR Not Detected (NotDetected); Parainfluenza 1, PCR Not Detected (NotDetected); Parainfluenza 2, PCR Not Detected (NotDetected); Parainfluenza 3, PCR Not Detected (NotDetected); Parainfluenza 4, PCR Not Detected (NotDetected); Respiratory Syncytial Virus Not Detected (NotDetected); Rhinovirus/Enterovirus Not Detected (NotDetected)
[2023-08-01 18:06] LABS: Coronavirus 19, PCR Detected (NotDetected)
== END 2023-08-01 15:48 | disposition home or self-care (01) ==
PROVIDERS: Emergency Provider Nurse Practitioner Family; PCP Internal Medicine Adolescent Medicine
DX: U07.1 COVID-19 (principal); J20.9 Acute bronchitis, unspecified; R50.9 Fever, unspecified; R09.81 Nasal congestion; R05.9 Cough, unspecified; I11.9 Hypertensive heart disease without heart failure; I25.119 Atherosclerotic heart disease of native coronary artery with unspecified angina pectoris; N18.2 Chronic kidney disease, stage 2 (mild); Z56.0 Unemployment, unspecified
CPT/HCPCS: 71046; 87632; 87635; 99212; 99214; G0463

== ENCOUNTER 2023-10-06 15:35 | Emergency (ER) | payer SELFPAY ==
[2023-10-06 15:50] VITALS: BP 172/81; PULSE 90; RESP 18; TEMP 36.8; O2SAT 99; BMI 38.9
[2023-10-06 16:03] LABS: UTC Strep Screen (Rapid) Negative (Negative)
--- NOTE | 2023-10-06 16:16 | ED_ITS ---
Discharge Plan Disposition Patient Disposition: Home, Self-Care Condition: Good Prescriptions Prescriptions: New cetirizine 10 mg tablet 10 mg PO DAILY Qty: 30 0RF No Action hydroxyzine pamoate 50 mg capsule 50 mg PO HS Patient Comments: TAKE TWO CAPSULES BY MOUTH EVERY NIGHT NEEDED FOR SLEEP methocarbamol 750 mg tablet 750 mg PO DAILY Patient Comments: TAKE 1 OR 2 TABLET(S) BY MOUTH TWICE DAILY FOR BACK SPASMS MAY CAUSE DROWSINESS omeprazole 20 mg capsule,delayed release(DR/EC) 20 mg PO DAILY Patient Comments: TAKE ONE CAPSULE BY MOUTH EVERY DAY sertraline 50 mg tablet 50 mg PO DAILY dapagliflozin propanediol [Farxiga] 10 mg tablet 10 mg PO DAILY Patient Comments: TAKE ONE TABLET BY MOUTH EVERY DAY Referrals Follow up/Referrals: Erica Tucker APRN [Primary Care Provider] - See instructions Activity Restrictions/Add. Instructions Additional Instructions/Restrictions: If symptoms persist or worsen, follow up with PCP. Clinical Impressions Clinical Impression: Allergic rhinitis Qualifiers: Allergic rhinitis trigger: unspecified Allergic rhinitis seasonality: seasonal Qualified Code(s): J30.2 - Other seasonal allergic rhinitis Instructions Patient Instructions: DI for Allergic Rhinitis Discharge ED Provider: Sheila Lyons [facility] [place] General Stated complaint: headache,fever,sore throat,chills Mode of Arrival: Ambulatory Source of Information: Patient Limitations: No Limitations Time Seen by Provider: 10/06/23 16:16 Description of Symptoms (Recalled from Triage Doc. by RN): Pt's symptoms are sore throat, chills, and DENNISON. HEENT Symptoms (Recalled from RN notes): Yes Resp Symptoms (Recalled from RN notes): No Skin Symptoms (Recalled from RN notes): No MS Symptoms (Recalled from RN notes): No Functional Status (Recalled from RN notes): n/a History of Present Illness Provider Complaint: Pt relates that she has had a sore throat, runny nose, sneezing, chills, and headache for the last 2 days. She denies taking anything for her symptoms. Grandkids at home with similar symptoms. Related Data Home Medications Medication Instructions Recorded Confirmed dapagliflozin propanediol 10 mg 10 mg PO DAILY 06/30/23 10/06/23 tablet (Farxiga) hydroxyzine pamoate 50 mg capsule 50 mg PO HS 06/30/23 10/06/23 methocarbamol 750 mg tablet 750 mg PO DAILY 06/30/23 10/06/23 omeprazole 20 mg capsule,delayed 20 mg PO DAILY 06/30/23 10/06/23 release sertraline 50 mg tablet 50 mg PO DAILY 06/30/23 10/06/23 Previous Rx's Medication Instructions Recorded cetirizine 10 mg tablet 10 mg PO DAILY #30 tabs 10/06/23 Allergies Allergy/AdvReac Type Severity Reaction Status Date / Time amlodipine Allergy Intermediate swelling Verified 10/06/23 16:02 legs and feet Penicillins [PENICILLINS] Allergy Intermediate I-RASH Verified 10/06/23 16:02 metoclopramide [From REGLAN] Allergy Mild NA-HALLUCIN Verified 10/06/23 16:02 ATIONS amoxicillin Allergy Verified 10/06/23 16:02 ibuprofen Allergy Nausea Verified 10/06/23 16:02 Worker's Comp Is this a Worker's Comp case?: No [facility] Disclaimer: The information contained in this section may have been updated after the patient was seen, as this information can be updated by other users. Medical History Witnessed apneic spells Daytime somnolence Snoring Dyspnea Facet arthropathy, lumbar Foot pain Carotid artery disease CKD (chronic kidney disease) stage 2, GFR 60-89 ml/min Lumbar radiculopathy Radiculopathy due to lumbar intervertebral disc disorder Chest pain Swelling SOB (shortness of breath) Other forms of angina pectoris Malignant essential hypertension Migraine Surgical History History of lithotripsy History of appendectomy History of tonsillectomy History of hysterectomy History of cholecystectomy Family History Other Family history of diabetes mellitus type II Family history of stroke Social History Smoking Status: Never smoker second hand exposure: Yes alcohol intake: never substance use type: denies use current occupational status: unemployed Travel in the last 8 weeks: None household members: family housing: house number of children: 4 current occupational exposures/hazards: No caffeine: Yes ROS Obtained: Yes All systems reviewed & no additional complaints except as documented Constitutional Constitutional: Reports system reviewed and no additional complaints, except as documented, Reports chills and Reports malaise Eyes Eyes: Reports system reviewed and no additional complaints, except as documented ENT Ears, Nose, Mouth, and Throat: Reports system reviewed and no additional complaints, except as documented, Reports otalgia, Reports nasal congestion, Reports nasal discharge, Reports post nasal drip and Reports sore throat Cardiovascular Cardiovascular: Reports system reviewed and no additional complaints, except as documented Respiratory Respiratory: Reports system reviewed and no additional complaints, except as documented Gastrointestinal Gastrointestingal: Reports system reviewed and no additional complaints, except as documented Genitourinary Female Genitourinary: Reports system reviewed and no additional complaints, except as documented Musculoskeletal Musculoskeletal: Reports system reviewed and no additional complaints, except as documented Integumentary/Breasts Skin/Breast: Reports system reviewed and no additional complaints, except as documented Neurologic Neurologic: Reports system reviewed and no additional complaints, except as documented Endocrine Endocrine: Reports system reviewed and no additional complaints, except as documented Hematologic/Lymphatic Henatologic/Lymphatic: Reports system reviewed and no additional complaints, except as documented Allergic/Immunologic Allergic/Immunologic: Reports system reviewed and no additional complaints, except as documented Physical Exam General General appearance: alert Comment: ill appearing Head Head exam: atraumatic and normocephalic Eye Eye exam: Present normal appearance Expanded ENT Exam External ear exam: Present normal external inspection Nose exam: Absent sinus tenderness Nasal speculum exam: Bilateral: other (clear drainage) Mouth exam: Present normal external inspection Teeth exam: Present normal inspection Throat exam: Present tonsillar erythema Neck Neck exam: Present normal inspection Chest Chest inspection: Present normal inspection and symmetric chest wall rise Respiratory Respiratory exam: Present normal lung sounds bilaterally Cardiovascular Cardiovascular exam: Present regular rate and normal rhythm Abdominal Exam Abdominal exam: Present soft and normal bowel sounds Extremities Exam Extremities exam: Present normal inspection Back Exam Back exam: Present normal inspection Neurological Exam Neurological exam: Present alert and oriented X3 Psychiatric Psychiatric exam: Present normal affect and normal mood Skin Skin exam: Present warm, dry and intact Lymphatic Lymphatic Findings: no adenopathy Medical Decision Making Mark Inquiry Pt receiving controlled substance: No Mark was queried for this patient: No Vital Signs: 10/06/23 15:50 Temperature 98.2 F Temperature Source Oral Pulse Rate [Right Radial] 90 Respiratory Rate 18 Blood Pressure [Right Arm] 172/81 H Blood Pressure Mean [Right Arm] 111 Blood Pressure Source [Right Arm] Automatic Cuff Blood Pressure Position [Right Arm] Sitting 02 Sat by Pulse Oximetry 99 Oxygen Delivery Method Room Air Lab Data Lab results reviewed: Yes I reviewed the patient's lab results. Lab Results 10/06/23 15:53: Strep Scn Rapid Clinic Negative Orders (Tests/Meds): ORDERS Category Date Time Status Strep Screen Confirmation Stat Micro 10/06/23 15:53 Received
[2023-10-06 16:37] VITALS: BP 172/81; PULSE 90; RESP 18; TEMP 36.8; O2SAT 99
== END 2023-10-06 16:37 | disposition home or self-care (01) ==
PROVIDERS: Emergency Provider Nurse Practitioner Family; PCP Nurse Practitioner Family
DX: R51.9 Headache, unspecified (principal); J30.2 Other seasonal allergic rhinitis; R07.0 Pain in throat; R09.81 Nasal congestion
CPT/HCPCS: 87880; 99212; 99214; G0463

== ENCOUNTER 2023-10-11 09:36 | Emergency (ER) | payer SELFPAY ==
[2023-10-11 09:37] VITALS: BP 133/87; PULSE 95; RESP 13; TEMP 38.1; O2SAT 98; BMI 39.0
--- NOTE | 2023-10-11 10:03 | HMH.EDGENADL ---
Discharge Plan Disposition Patient Disposition: Home, Self-Care Chief Complaint: Ear Prescriptions Prescriptions: No Action hydroxyzine pamoate 50 mg capsule 50 mg PO HS Patient Comments: TAKE TWO CAPSULES BY MOUTH EVERY NIGHT NEEDED FOR SLEEP methocarbamol 750 mg tablet 750 mg PO DAILY Patient Comments: TAKE 1 OR 2 TABLET(S) BY MOUTH TWICE DAILY FOR BACK SPASMS MAY CAUSE DROWSINESS omeprazole 20 mg capsule,delayed release(DR/EC) 20 mg PO DAILY Patient Comments: TAKE ONE CAPSULE BY MOUTH EVERY DAY sertraline 50 mg tablet 50 mg PO DAILY dapagliflozin propanediol [Farxiga] 10 mg tablet 10 mg PO DAILY Patient Comments: TAKE ONE TABLET BY MOUTH EVERY DAY cetirizine 10 mg tablet 10 mg PO DAILY Qty: 30 0RF Referrals Follow up/Referrals: Erica Tucker APRN [Primary Care Provider] - See instructions Clinical Impressions Clinical Impression: Otitis media, Cough Discharge ED Provider: Garland Oneill General Adult HPI General Chief complaint: Ear Stated complaint: cough, sore throat, right ear pain Time Seen by Provider: 10/11/23 09:41 Mode of Arrival: Ambulatory Source of Information: Patient Limitations: No Limitations Description of Symptoms (Recalled from ER Triage Doc. by RN): pt presents to ED with c/o right ear pain, aches, chills, cough. pt reports symptoms began 10/04/23. she was seen in the [facility] thursday and was told she had allergies. pt repororts no improvement in symptoms. History of Present Illness HPI narrative: Patient is a 48-year-old female with no pertinent past medical history presents emergency department for evaluation of ear pain, cough. Onset was acute since the second. Ear pain is right-sided. Due to persistent she presents here for continued evaluation. No other acute complaints at this time. Related Data Home Medications Medication Instructions Recorded Confirmed dapagliflozin propanediol 10 mg 10 mg PO DAILY 06/30/23 10/06/23 tablet (Farxiga) hydroxyzine pamoate 50 mg capsule 50 mg PO HS 06/30/23 10/06/23 methocarbamol 750 mg tablet 750 mg PO DAILY 06/30/23 10/06/23 omeprazole 20 mg capsule,delayed 20 mg PO DAILY 06/30/23 10/06/23 release sertraline 50 mg tablet 50 mg PO DAILY 06/30/23 10/06/23 Previous Rx's Medication Instructions Recorded cetirizine 10 mg tablet 10 mg PO DAILY #30 tabs 10/06/23 Allergies Allergy/AdvReac Type Severity Reaction Status Date / Time amlodipine Allergy Intermediate swelling Verified 10/06/23 16:02 legs and feet Penicillins [PENICILLINS] Allergy Intermediate I-RASH Verified 10/06/23 16:02 metoclopramide [From REGLAN] Allergy Mild NA-HALLUCIN Verified 10/06/23 16:02 ATIONS amoxicillin Allergy Verified 10/06/23 16:02 ibuprofen Allergy Nausea Verified 10/06/23 16:02 [facility] Disclaimer: The information contained in this section may have been updated after the patient was seen, as this information can be updated by other users. Medical History Witnessed apneic spells Daytime somnolence Snoring Dyspnea Facet arthropathy, lumbar Foot pain Carotid artery disease CKD (chronic kidney disease) stage 2, GFR 60-89 ml/min Lumbar radiculopathy Radiculopathy due to lumbar intervertebral disc disorder Chest pain Swelling SOB (shortness of breath) Other forms of angina pectoris Malignant essential hypertension Migraine Surgical History History of lithotripsy History of appendectomy History of tonsillectomy History of hysterectomy History of cholecystectomy Family History Other Family history of diabetes mellitus type II Family history of stroke Social History Smoking Status: Current every day smoker second hand exposure: Yes alcohol intake: never substance use type: denies use current occupational status: unemployed Travel in the last 8 weeks: None household members: family housing: house number of children: 4 current occupational exposures/hazards: No caffeine: Yes ROS Obtained: Yes Systems reviewed as appropriate & no additional complaints except as documented Physical Exam General General appearance: alert and in no apparent distress Head Head exam: atraumatic and normocephalic Eye Eye exam: Present PERRL ENT ENT exam: Present mucous membranes moist and other (Bulging erythematous right TM with purulent middle ear effusion) Neck Neck exam: Present normal inspection Chest Chest inspection: Present normal inspection and symmetric chest wall rise Respiratory Respiratory exam: Present normal lung sounds bilaterally; Absent respiratory distress, wheezes or stridor Cardiovascular Cardiovascular exam: Present regular rate and normal rhythm Abdominal Exam Abdominal exam: Present soft; Absent tenderness Extremities Exam Extremities exam: Present normal inspection Neurological Exam Neurological exam: Present alert Psychiatric Psychiatric exam: Present normal affect Skin Skin exam: Present warm and dry Medical Decision Making Mark Inquiry Pt receiving controlled substance: No Vital Signs: 10/11/23 09:37 Temperature 100.6 F H Temperature Source Oral Pulse Rate [Left Radial] 95 H Respiratory Rate 13 Blood Pressure [Right Arm] 133/87 Blood Pressure Mean [Right Arm] 102 02 Sat by Pulse Oximetry 98 Oxygen Delivery Method Room Air Medical Decision Narrative: In summary patient is a 48-year-old female past medical history described above presents emergency department for evaluation of ear pain and cough. Patient is hemodynamically stable nontoxic-appearing upon arrival, febrile temperature 100.6 ?F. Clinically patient has a right-sided otitis media. She is allergic to penicillins so initial interventions will be conducted with cefdinir. Patient is clear to auscultation all lung thomas, however has had persistent cough over the last 7 days. Workup with chest x-ray was considered however given that no oxygen requirement or significant tachycardia even if patient did have pneumonia this will be covered with cefdinir. Given this patient is appropriate for discharge at this time after cefdinir was administered and she was watched for approximately 30 minutes with no reaction and was given return precautions. Critical Care Critical Care Time Critical Care Time: No
[2023-10-11] MEDS: CEFDINIR 300MG CAPSULE 300 MG PO (10:05)
[2023-10-11] MEDS: ACETAMINOPHEN 500MG TAB 1000 MG PO (10:09)
[2023-10-11 10:51] VITALS: BP 132/80; PULSE 101; RESP 13; TEMP 36.7; O2SAT 97
== END 2023-10-11 10:54 | disposition home or self-care (01) ==
PROVIDERS: Emergency Provider Emergency Medicine; PCP Nurse Practitioner Family
DX: H66.91 Otitis media, unspecified, right ear (principal); R05.9 Cough, unspecified; F17.210 Nicotine dependence, cigarettes, uncomplicated
CPT/HCPCS: 99283

== ENCOUNTER 2023-10-22 18:49 | Emergency (ER) | payer SELFPAY ==
[2023-10-22 19:05] VITALS: BP 156/109; PULSE 89; RESP 20; TEMP 36.8; O2SAT 97; BMI 38.4
--- NOTE | 2023-10-22 19:23 | EXP.UTC ---
Discharge Plan Disposition Patient Disposition: Home, Self-Care Condition: Good Prescriptions Prescriptions: New cephalexin 500 mg capsule 500 mg PO QID Qty: 40 0RF silver sulfadiazine [Silvadene] 1 % cream 1 applic topical BID 7 Days Qty: 50 0RF Rx Instructions: apply a 1.5 mm thickness No Action hydroxyzine pamoate 50 mg capsule 50 mg PO HS Patient Comments: TAKE TWO CAPSULES BY MOUTH EVERY NIGHT NEEDED FOR SLEEP methocarbamol 750 mg tablet 750 mg PO DAILY Patient Comments: TAKE 1 OR 2 TABLET(S) BY MOUTH TWICE DAILY FOR BACK SPASMS MAY CAUSE DROWSINESS omeprazole 20 mg capsule,delayed release(DR/EC) 20 mg PO DAILY Patient Comments: TAKE ONE CAPSULE BY MOUTH EVERY DAY sertraline 50 mg tablet 50 mg PO DAILY dapagliflozin propanediol [Farxiga] 10 mg tablet 10 mg PO DAILY Patient Comments: TAKE ONE TABLET BY MOUTH EVERY DAY cetirizine 10 mg tablet 10 mg PO DAILY Qty: 30 0RF cefdinir 300 mg capsule 300 mg PO BID 7 Days Qty: 14 0RF [id number] [Bromfed DM] 2-30-10 mg/5 mL syrup 5 ml PO Q6H PRN (Reason: cold symptoms) Qty: 118 0RF Referrals Follow up/Referrals: Erica Tucker APRN [Primary Care Provider] - See instructions Activity Restrictions/Add. Instructions Additional Instructions/Restrictions: Drink plenty of fluids. Take tylenol or ibuprofen for pain or fever. Take the medications as directed. Follow up with your regular doctor. Make sure you follow up because landry can have serious consequences. GO TO THE ER FOR ANY WORSENING SYMPTOMS Clinical Impressions Clinical Impression: Second degree burn of left hand Instructions Patient Instructions: DI for Landry, Silver Sulfadiazine Discharge ED Provider: [place]ry [place] [facility] [place] General Stated complaint: Ao06/20@1830 LT hand burn Mode of Arrival: Ambulatory Source of Information: Patient Limitations: No Limitations Time Seen by Provider: 10/22/23 19:15 Description of Symptoms (Recalled from Triage Doc. 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 She is a diabetic. Her tetanus immunization is up to date. Related Data Home Medications Medication Instructions Recorded Confirmed dapagliflozin propanediol 10 mg 10 mg PO DAILY 06/30/23 10/06/23 tablet (Farxiga) hydroxyzine pamoate 50 mg capsule 50 mg PO HS 06/30/23 10/06/23 methocarbamol 750 mg tablet 750 mg PO DAILY 06/30/23 10/06/23 omeprazole 20 mg capsule,delayed 20 mg PO DAILY 06/30/23 10/06/23 release sertraline 50 mg tablet 50 mg PO DAILY 06/30/23 10/06/23 Previous Rx's Medication Instructions Recorded cetirizine 10 mg tablet 10 mg PO DAILY #30 tabs 10/06/23 [id number] 5 ml PO Q6H PRN cold symptoms #118 10/11/23 2 mg-30 mg-10 mg/5 mL oral syrup mL (Bromfed DM) cefdinir 300 mg capsule 300 mg PO BID Otitis Media 7 days 10/11/23 #14 caps cephalexin 500 mg capsule 500 mg PO QID #40 caps 10/22/23 silver sulfadiazine 1 % topical 1 applic topical BID 7 days #50 10/22/23 cream (Silvadene) grams Allergies Allergy/AdvReac Type Severity Reaction Status Date / Time amlodipine Allergy Intermediate swelling Verified 10/06/23 16:02 legs and feet Penicillins [PENICILLINS] Allergy Intermediate I-RASH Verified 10/06/23 16:02 metoclopramide [From REGLAN] Allergy Mild NA-HALLUCIN Verified 10/06/23 16:02 ATIONS amoxicillin Allergy Verified 10/06/23 16:02 ibuprofen Allergy Nausea Verified 10/06/23 16:02 Worker's Comp Is this a Worker's Comp case?: No [facility] Disclaimer: The information contained in this section may have been updated after the patient was seen, as this information can be updated by other users. Medical History Witnessed apneic spells Daytime somnolence Snoring Dyspnea Facet arthropathy, lumbar Foot pain Carotid artery disease CKD (chronic kidney disease) stage 2, GFR 60-89 ml/min Lumbar radiculopathy Radiculopathy due to lumbar intervertebral disc disorder Chest pain Swelling SOB (shortness of breath) Other forms of angina pectoris Malignant essential hypertension Migraine Surgical History History of lithotripsy History of appendectomy History of tonsillectomy History of hysterectomy History of cholecystectomy Family History Other Family history of diabetes mellitus type II Family history of stroke Social History Smoking Status: Current every day smoker second hand exposure: Yes alcohol intake: never substance use type: denies use current occupational status: unemployed Travel in the last 8 weeks: None household members: family housing: house number of children: 4 current occupational exposures/hazards: No caffeine: Yes ROS Obtained: Yes All systems reviewed & no additional complaints except as documented Constitutional Constitutional: Denies chills and Denies fever(s) Eyes Eyes: Denies eye discharge ENT Ears, Nose, Mouth, and Throat: Denies dizziness, Denies otalgia and Denies sore throat Cardiovascular Cardiovascular: Denies chest pain Respiratory Respiratory: Denies shortness of breath, Denies chest congestion, Denies cough, Denies stridor and Denies wheezing Gastrointestinal Gastrointestingal: Denies nausea or vomiting Musculoskeletal Musculoskeletal: Reports system reviewed and no additional complaints, except as documented and Denies arthralgias Integumentary/Breasts Skin/Breast: Reports as per HPI Neurologic Neurologic: Denies dizziness and Denies paresthesias Allergic/Immunologic Allergic/Immunologic: Denies wheezing Physical Exam General General appearance: alert and in no apparent distress Head Head exam: atraumatic, normocephalic and normal inspection Eye Eye exam: Present normal appearance, PERRL and EOMI ENT ENT exam: Present normal exam, normal oropharynx, mucous membranes moist, TM's normal bilaterally and normal external ear exam Neck Neck exam: Present normal inspection, full ROM and trachea midline; Absent meningismus or lymphadenopathy Chest Chest inspection: Present normal inspection and symmetric chest wall rise; Absent tenderness Respiratory Respiratory exam: Present normal lung sounds bilaterally; Absent respiratory distress Cardiovascular Cardiovascular exam: Present regular rate and normal rhythm; Absent JVD Abdominal Exam Abdominal exam: Present soft and normal bowel sounds; Absent distention, tenderness or guarding Extremities Exam Extremities exam: Present normal inspection, full ROM and normal capillary refill; Absent calf tenderness Back Exam Back exam: Present normal inspection; Absent tenderness Neurological Exam Neurological exam: Present alert and oriented X3 Psychiatric Psychiatric exam: Present normal affect and normal mood Skin Skin exam: Present other (there is erythema and several small blistered areas on the lateral aspect of her left thumb. ) Lymphatic Lymphatic Findings: no adenopathy Medical Decision Making Medical Records Medical records reviewed: No I reviewed the patient's medical records. Mark Inquiry Pt receiving controlled substance: No Vital Signs: 10/22/23 19:05 Temperature 98.2 F Temperature Source Oral Pulse Rate [Left Brachial] 89 Respiratory Rate 20 Blood Pressure [Left Arm] 156/109 H Blood Pressure Mean [Left Arm] 124 Blood Pressure Source [Left Arm] Automatic Cuff Blood Pressure Position [Left Arm] Sitting 02 Sat by Pulse Oximetry 97 Oxygen Delivery Method Room Air
[2023-10-22 19:35] VITALS: BP 156/109; PULSE 89; RESP 20; TEMP 36.8; O2SAT 97
--- NOTE | 2023-10-22 19:35 | PC.NURSE ---
SILVADENE CREAM, NONSTICK AND DRY DRESSINGS APPLIED TO BURN AREAS
== END 2023-10-22 19:39 | disposition home or self-care (01) ==
PROVIDERS: Emergency Provider Nurse Practitioner Family; PCP Nurse Practitioner Family
DX: T23.212A Burn of second degree of left thumb (nail), initial encounter (principal); E11.9 Type 2 diabetes mellitus without complications; F17.210 Nicotine dependence, cigarettes, uncomplicated; Z79.84 Long term (current) use of oral hypoglycemic drugs; X10.2XXA Contact with fats and cooking oils, initial encounter
CPT/HCPCS: 99212; 99214; G0463

== ENCOUNTER 2023-12-20 18:13 | Emergency (ER) | payer SELFPAY ==
[2023-12-20 18:30] VITALS: BP 187/98; PULSE 75; RESP 20; TEMP 36.6; O2SAT 99; BMI 39.2
--- NOTE | 2023-12-20 18:46 | EXP.UTC ---
Discharge Plan Disposition Patient Disposition: Home, Self-Care Condition: Good Prescriptions Prescriptions: New methocarbamol 500 mg tablet 500 mg PO TID PRN (Reason: muscle spasm) Qty: 15 0RF Referrals Follow up/Referrals: Erica Tucker APRN [Primary Care Provider] - See instructions Activity Restrictions/Add. Instructions Additional Instructions/Restrictions: Warm soaks in the bathtub with warm water and epson salt may help with discomfort Over the counter Lidocaine patches applied to area may help with pain and discomfort Follow up with your Family Doctor if no improvement or any worsening of symptoms Straight to ER if any lfie threatening sympotms Clinical Impressions Clinical Impression: Sciatica Qualifiers: Laterality: right Qualified Code(s): M54.31 - Sciatica, right side Instructions Patient Instructions: Sciatica, DI for Sciatica, DI for Back Pain With Sciatica Print Language Print Language: Korean Discharge ED Provider: Kenzie Damon [facility] [place] HPI General Stated complaint: pain in right hip traveling down leg Mode of Arrival: Ambulatory Source of Information: Patient Limitations: No Limitations Time Seen by Provider: 12/20/23 18:51 Description of Symptoms (Recalled from Triage Doc. by RN): PATIENT C/O PAIN TO RIGHT HIP AREA THAT RADIATES DOWN HER UPPER LEG TO HER KNEE X 3 DAYS. PATIENT DENIES INJURY HEENT Symptoms (Recalled from RN notes): No Resp Symptoms (Recalled from RN notes): No Skin Symptoms (Recalled from RN notes): No MS Symptoms (Recalled from RN notes): Yes Functional Status (Recalled from RN notes): WNL History of Present Illness Provider Complaint: Patient states she has a hx of sciatica States that for the last 3 days she has been having pain in her right hip/buttock area that is radiating down into her upper right leg like she has when she has episode of sciatica Denies known injury denies loss of control of bowel or bladder Related Data Previous Rx's ?Medication ?Instructions ?Recorded methocarbamol 500 mg tablet 500 mg PO TID PRN muscle spasm #15 12/20/23 tabs Allergies Allergy/AdvReac Type Severity Reaction Status Date / Time amlodipine Allergy Intermediate swelling Verified 10/06/23 16:02 legs and feet Penicillins [PENICILLINS] Allergy Intermediate I-RASH Verified 10/06/23 16:02 metoclopramide [From REGLAN] Allergy Mild NA-HALLUCIN Verified 10/06/23 16:02 ATIONS amoxicillin Allergy Verified 10/06/23 16:02 ibuprofen Allergy Nausea Verified 10/06/23 16:02 Worker's Comp Is this a Worker's Comp case?: No [facility] Disclaimer: The information contained in this section may have been updated after the patient was seen, as this information can be updated by other users. Medical History Witnessed apneic spells Daytime somnolence Snoring Dyspnea Facet arthropathy, lumbar Foot pain Carotid artery disease CKD (chronic kidney disease) stage 2, GFR 60-89 ml/min Lumbar radiculopathy Radiculopathy due to lumbar intervertebral disc disorder Chest pain Swelling SOB (shortness of breath) Other forms of angina pectoris Malignant essential hypertension Migraine Surgical History History of lithotripsy History of appendectomy History of tonsillectomy History of hysterectomy History of cholecystectomy Family History Other Family history of diabetes mellitus type II Family history of stroke Social History Smoking Status: Current every day smoker second hand exposure: Yes alcohol intake: never substance use type: denies use current occupational status: unemployed Travel in the last 8 weeks: None household members: family housing: house number of children: 4 current occupational exposures/hazards: No caffeine: Yes ROS Obtained: Yes All systems reviewed & no additional complaints except as documented and Yes Systems reviewed as appropriate & no additional complaints except as documented Constitutional Constitutional: Reports system reviewed and no additional complaints, except as documented and Reports as per HPI ENT Ears, Nose, Mouth, and Throat: Reports system reviewed and no additional complaints, except as documented and Reports as per HPI Cardiovascular Cardiovascular: Reports system reviewed and no additional complaints, except as documented and Reports as per HPI Respiratory Respiratory: Reports system reviewed and no additional complaints, except as documented and Reports as per HPI Gastrointestinal Gastrointestingal: Reports system reviewed and no additional complaints, except as documented and as per HPI Musculoskeletal Musculoskeletal: Reports system reviewed and no additional complaints, except as documented and Reports as per HPI Comments: right sciatica pain Physical Exam General General appearance: alert and in no apparent distress ENT ENT exam: Present mucous membranes moist Respiratory Respiratory exam: Present normal lung sounds bilaterally; Absent respiratory distress or wheezes Cardiovascular Cardiovascular exam: Present regular rate, normal rhythm and normal heart sounds Back Exam Back exam: Present tenderness and sciatic notch tenderness (R) Back 1 view image: 1. pain in right hip/buttock area that radiates down into her upper leg like she has with sciatica flare, denies known injury Denies loss of control of bowel or bladder Neurological Exam Neurological exam: Present alert, oriented X3 and normal gait Medical Decision Making Mark Inquiry Pt receiving controlled substance: No Mark was queried for this patient: No Vital Signs: 12/20/23 18:30 Temperature 97.9 F Temperature Source Oral Pulse Rate [Left Brachial] 75 Respiratory Rate 20 Blood Pressure [Left Arm] 187/98 H Blood Pressure Mean [Left Arm] 127 Blood Pressure Source [Left Arm] Automatic Cuff Blood Pressure Position [Left Arm] Sitting 02 Sat by Pulse Oximetry 99 Oxygen Delivery Method Room Air Medical Decision Narrative: Patient has ibuprofen on her allergy list but states that it is there because when she takes it orally it upsets her stomach at times but she has taken Toradol injections multiple times in the past without complications or reactions
[2023-12-20] MEDS: KETOROLAC 30MG/ML VIAL 30 MG IM (19:00)
[2023-12-20] MEDS: METHYLPREDNISOLONE SOD SUCC 125MG VIAL 125 MG IM (19:00)
[2023-12-20 19:13] VITALS: BP 187/98; PULSE 75; RESP 20; TEMP 36.6; O2SAT 99
== END 2023-12-20 19:16 | disposition home or self-care (01) ==
PROVIDERS: Emergency Provider Nurse Practitioner; PCP Nurse Practitioner Family
DX: M54.31 Sciatica, right side (principal)
CPT/HCPCS: 96372; 99212; 99214; G0463; J1885; J2919

== ENCOUNTER 2024-03-02 16:06 | Emergency (ER) | payer SELFPAY ==
[2024-03-02 17:02] VITALS: BP 168/93; PULSE 85; RESP 18; TEMP 36.6; O2SAT 98; BMI 40.0
[2024-03-02 17:03] LABS: Apearance,Urine Cloudy (Clear); Color,Urine Dark Yellow (Yellow)
[2024-03-02 17:04] LABS: Bilirubin,Urine Negative (Negative); Blood, Urine 2+ (Negative); Glucose,Urine (UA) Negative (Negative); Ketones,Urine Negative (Negative); Protein,Urine 1+ (Negative); UTC Leukocyte Esterase,Urine Trace (Negative); UTC Nitrate,Urine Positive (Negative); Urobilinogen,Urine 0.2 EU/dl (0.2)
--- NOTE | 2024-03-02 17:25 | EXP.UTC ---
Discharge Plan Disposition Patient Disposition: Home, Self-Care Condition: Good Prescriptions Prescriptions: New cefdinir 300 mg capsule 300 mg PO BID 10 Days Qty: 20 0RF No Action methocarbamol 500 mg tablet 500 mg PO TID PRN (Reason: muscle spasm) Qty: 15 0RF celecoxib 200 mg capsule 200 mg PO DAILY Patient Comments: TAKE ONE CAPSULE BY MOUTH EVERY DAY hydroxyzine pamoate 50 mg capsule 50 mg PO DAILY Patient Comments: TAKE 1 TO 2 CAPSULE(S) BY MOUTH EVERY EVENING NEEDED FOR SLEEP methocarbamol 750 mg tablet 750 mg PO DAILY Patient Comments: TAKE 1 TO 2 TABLET(S) BY MOUTH TWICE DAILY FOR BACK SPASMS MAY CAUSE DROWSINESS sertraline 50 mg tablet 50 mg PO DAILY Patient Comments: TAKE ONE TABLET BY MOUTH EVERY MORNING valsartan-hydrochlorothiazide 160-25 mg tablet 1 tab PO DAILY Referrals Follow up/Referrals: Erica Tucker APRN [Primary Care Provider] - See instructions Activity Restrictions/Add. Instructions Additional Instructions/Restrictions: *Increase fluids. Water not Soda or Tea *Start antibiotic immediately and be sure to take as ordered for the FULL length of time although you should start to see improvement over the next 48 hours *Be SURE to follow up anytime for new or worsening symptoms with your family doctor. AND in 48 hours for urine culture results with your family doctor, if you do not have a doctor then you may call back to the [facility] for urine culture results and further treatment. We do recommend that you choose and establish care with a Primary Care Physician. ?AND follow up with them ?in 10-14 days to repeat UA to ensure infection is resolved and blood no longer present *Be sure to let your PCP know that we sent urine cultures from the [facility] so they can follow up to ensure that you area the on the correct antibiotic Call your doctor office and make appointment for 48 hours (2 days from today) ?to follow up and get the results of your urine culture and further treatment Make sure to follow up or straight to ER if any worsening of symptoms Clinical Impressions Clinical Impression: UTI (urinary tract infection) Instructions Patient Instructions: DI for Urinary Tract Infection (UTI), Cefdinir Print Language Print Language: Guamanian Discharge ED Provider: Kenzie Damon [facility] [place] HPI General Stated complaint: left side pain Mode of Arrival: Ambulatory Source of Information: Patient Time Seen by Provider: 03/02/24 17:25 Description of Symptoms (Recalled from Triage Doc. by RN): BURNING/PAINFUL URINATION, LEFT SIDE FLANK PAIN HEENT Symptoms (Recalled from RN notes): No Resp Symptoms (Recalled from RN notes): No Skin Symptoms (Recalled from RN notes): No MS Symptoms (Recalled from RN notes): No Functional Status (Recalled from RN notes): WNL History of Present Illness Provider Complaint: Patient states that she has been having pain in her left flank area, burning with urination and feeling of urgency and frequency States she thinks she has a UTI States he has had kidney stones before but this doesnt feel like that is what it is Related Data Home Medications ?Medication ?Instructions ?Recorded ?Confirmed celecoxib 200 mg capsule 200 mg PO DAILY 03/02/24 03/02/24 hydroxyzine pamoate 50 mg capsule 50 mg PO DAILY 03/02/24 03/02/24 methocarbamol 750 mg tablet 750 mg PO DAILY 03/02/24 03/02/24 sertraline 50 mg tablet 50 mg PO DAILY 03/02/24 03/02/24 valsartan 160 1 tab PO DAILY 03/02/24 03/02/24 mg-hydrochlorothiazide 25 mg tablet Previous Rx's ?Medication ?Instructions ?Recorded methocarbamol 500 mg tablet 500 mg PO TID PRN muscle spasm #15 12/20/23 tabs cefdinir 300 mg capsule 300 mg PO BID 10 days #20 caps 03/02/24 Allergies Allergy/AdvReac Type Severity Reaction Status Date / Time amlodipine Allergy Intermediate swelling Verified 10/06/23 16:02 legs and feet Penicillins [PENICILLINS] Allergy Intermediate I-RASH Verified 10/06/23 16:02 metoclopramide [From REGLAN] Allergy Mild NA-HALLUCIN Verified 10/06/23 16:02 ATIONS amoxicillin Allergy Verified 10/06/23 16:02 ibuprofen Allergy Nausea Verified 10/06/23 16:02 Worker's Comp Is this a Worker's Comp case?: No [facility] Disclaimer: The information contained in this section may have been updated after the patient was seen, as this information can be updated by other users. Medical History Witnessed apneic spells Daytime somnolence Snoring Dyspnea Facet arthropathy, lumbar Foot pain Carotid artery disease CKD (chronic kidney disease) stage 2, GFR 60-89 ml/min Lumbar radiculopathy Radiculopathy due to lumbar intervertebral disc disorder Chest pain Swelling SOB (shortness of breath) Other forms of angina pectoris Malignant essential hypertension Migraine Surgical History History of lithotripsy History of appendectomy History of tonsillectomy History of hysterectomy History of cholecystectomy Family History Other Family history of diabetes mellitus type II Family history of stroke Social History Smoking Status: Current every day smoker second hand exposure: Yes alcohol intake: never substance use type: denies use current occupational status: unemployed Travel in the last 8 weeks: None household members: family housing: house number of children: 4 current occupational exposures/hazards: No caffeine: Yes ROS Obtained: Yes All systems reviewed & no additional complaints except as documented and Yes Systems reviewed as appropriate & no additional complaints except as documented Constitutional Constitutional: Reports system reviewed and no additional complaints, except as documented, Reports as per HPI, Denies body ache, Denies chills, Denies fever(s) and Denies headache(s) ENT Ears, Nose, Mouth, and Throat: Reports system reviewed and no additional complaints, except as documented, Reports as per HPI and Denies headache(s) Cardiovascular Cardiovascular: Reports system reviewed and no additional complaints, except as documented and Reports as per HPI Respiratory Respiratory: Reports system reviewed and no additional complaints, except as documented and Reports as per HPI Gastrointestinal Gastrointestingal: Reports system reviewed and no additional complaints, except as documented and as per HPI Genitourinary Female Genitourinary: Reports system reviewed and no additional complaints, except as documented, Reports as per HPI, Reports dysuria, Reports flank pain, Reports urinary frequency and Reports urinary urgency Neurologic Neurologic: Denies headache(s) Physical Exam General General appearance: alert and in no apparent distress ENT ENT exam: Present mucous membranes moist Expanded ENT Exam Nose exam: Absent sinus tenderness Throat exam: Present normal inspection Respiratory Respiratory exam: Present normal lung sounds bilaterally; Absent respiratory distress or wheezes Cardiovascular Cardiovascular exam: Present regular rate, normal rhythm and normal heart sounds Abdominal Exam Abdominal exam: Present soft and normal bowel sounds; Absent distention or tenderness Back Exam Back exam: Present tenderness Back 1 view image: 1. reports achy like pain in left flank area Neurological Exam Neurological exam: Present alert, oriented X3 and normal gait Medical Decision Making Medical Records Screening: Per USPSTF and CDC recommendations, given the prevalence of disease in our region, it is our hospital?s policy to screen for HIV and viral Hepatitis for all patients aged 18 and over and those with ongoing risk factors. Mark Inquiry Pt receiving controlled substance: No Mark was queried for this patient: No Vital Signs: 03/02/24 17:02 Temperature 97.8 F Temperature Source Oral Pulse Rate [Left Radial] 85 Respiratory Rate 18 Blood Pressure [Left Arm] 168/93 H Blood Pressure Mean [Left Arm] 118 02 Sat by Pulse Oximetry 98 Lab Data Lab results reviewed: Yes I reviewed the patient's lab results. Lab Results 03/02/24 16:55: Urine Color Dark yellow, Urine Appearance Cloudy, Urine pH 6.0, Ur Specific [place] 1.030, Urine Protein 1+, Urine Glucose (UA) Negative, Urine Ketones Negative, Urine Blood 2+, Urine Nitrate Positive A, Urine Bilirubin Negative, Urine Urobilinogen 0.2, Ur Leukocyte Esterase Trace Orders (Tests/Meds): ORDERS Category Date Time Status Urine Culture Stat Micro 03/02/24 17:02 Received Medical Decision Narrative: Discussed with patient and recommended transfer to the ED for furhter work up and evaluation due to hx of kidney stones and last had to be busted up and patient declined States she did not want to go to the ED she wanted medication and would follow up with Urology patient aware of risks and still declined to be transferred to the ED patient states that she is allergic to PCN and amoxicillin but has taken Cephlosporins in the past without complication or reactions
[2024-03-02 17:46] VITALS: BP 168/93; PULSE 85; RESP 18; TEMP 36.6
--- NOTE | 2024-03-04 10:43 | PC.NURSE ---
REVIEWED PATIENT'S URINE CULTURE WITH Eve QUEVEDO APRN, NO CHANGES NOTED AT THIS TIME
== END 2024-03-02 17:47 | disposition home or self-care (01) ==
PROVIDERS: Emergency Provider Nurse Practitioner; PCP Nurse Practitioner Family
DX: N39.0 Urinary tract infection, site not specified (principal)
CPT/HCPCS: 81003; 87086; 87088; 87186; 99213; G0381

== ENCOUNTER 2024-03-04 09:13 | Emergency (ER) | payer OTHER, SELFPAY ==
[2024-03-04] VITALS (8 sets, daily range): BP systolic 161–187; BP diastolic 92–108; PULSE 75–88; RESP 16; TEMP 36.7; O2SAT 96–99; BMI 40.3
--- NOTE | 2024-03-04 09:22 | CT_ITS ---
PROCEDURE INFORMATION: Exam: CT Abdomen And Pelvis With Contrast Exam date and time: 03/04/2024 10:08 AM Age: 49 years old Clinical indication: Abdominal pain; Flank; Left; Additional info: L flank/llq pain, HX stones, active UTI TECHNIQUE: Imaging protocol: Computed tomography of the abdomen and pelvis with contrast. Radiation optimization: All CT scans at this facility use at least one of these dose optimization techniques: automated exposure control; mA and/or kV adjustment per patient size (includes targeted exams where dose is matched to clinical indication); or iterative reconstruction. Contrast material: ISOVUE; Contrast volume: 75 ml; Contrast route: IV; COMPARISON: CT ABDOMEN PELVIS WO CON 01/22/2023 5:17 PM FINDINGS: Lungs: Palo dependent atelectasis is noted lung bases. There is a 4 mm calcified granuloma in the right lower lobe. Liver: There is disproportionate enlargement of the right hepatic lobe which is a normal anatomic variant. Gallbladder and biliary ducts: Surgical clips are noted the gallbladder fossa compatible with prior cholecystectomy. Pancreas: Normal. No ductal dilation. Spleen: Normal. No splenomegaly. Adrenal glands: Normal. No mass. Kidneys and ureters: There is asymmetrically attenuated enhancement of the left kidney with severe hydronephrosis, mild hydroureter due to a 7 x 4 x 4 mm distal ureteral calculus 2.3 cm above the ureterovesical junction. Nonobstructing nephrolithiasis is noted bilaterally measuring up to 5 mm near the lower pole of each kidney. There is no hydronephrosis on the right. Stomach and bowel: There are dilated loops of ileum in the right lower quadrant with collapsed loops proximally and distally. Findings could be physiologic or represent an ileus, developing or partial small bowel obstruction cannot be entirely excluded based on this examination alone and clinical correlation will determine the need for further imaging follow-up. The colon is largely contracted. Diverticulosis is noted. Appendix: The appendix is not identified. Intraperitoneal space: Unremarkable. No free air. No significant fluid collection. Vasculature: Unremarkable. No abdominal aortic aneurysm. Lymph nodes: Unremarkable. No enlarged lymph nodes. Urinary bladder: The urinary bladder is contracted. Reproductive: Gynecologic structures are not identified, may be atrophic or surgically absent. Bones/joints: Degenerative changes are noted in the bones. Soft tissues: There is rectus diastasis. IMPRESSION: Obstructing 7 mm distal left ureteral calculus. Severe hydronephrosis. Nonobstructing bilateral nephrolithiasis. Indeterminate dilated loops of ileum in the right lower quadrant could represent physiologic dilatation, ileus or enteritis. Developing or partial small bowel obstruction cannot be entirely excluded based on this examination alone and clinical correlation will determine the need for further imaging follow-up. Colonic diverticulosis. Dante's right hepatic lobe. Granulomatous disease in the right lung base and spleen.
--- NOTE | 2024-03-04 09:26 | PC.NURSE ---
DR ZHANG AT BEDSIDE
--- NOTE | 2024-03-04 09:27 | ED_ITS ---
Discharge Plan Disposition Patient Disposition: Xfer Short-Term Hosp Prescriptions Prescriptions: No Action methocarbamol 500 mg tablet 500 mg PO TID PRN (Reason: muscle spasm) Qty: 15 0RF celecoxib 200 mg capsule 200 mg PO DAILY Patient Comments: TAKE ONE CAPSULE BY MOUTH EVERY DAY hydroxyzine pamoate 50 mg capsule 50 mg PO DAILY Patient Comments: TAKE 1 TO 2 CAPSULE(S) BY MOUTH EVERY EVENING NEEDED FOR SLEEP methocarbamol 750 mg tablet 750 mg PO DAILY Patient Comments: TAKE 1 TO 2 TABLET(S) BY MOUTH TWICE DAILY FOR BACK SPASMS MAY CAUSE DROWSINESS sertraline 50 mg tablet 50 mg PO DAILY Patient Comments: TAKE ONE TABLET BY MOUTH EVERY MORNING valsartan-hydrochlorothiazide 160-25 mg tablet 1 tab PO DAILY cefdinir 300 mg capsule 300 mg PO BID 10 Days Qty: 20 0RF Referrals Follow up/Referrals: David Garcia MD [Primary Care Provider] - See instructions Activity Restrictions/Add. Instructions Additional Instructions/Restrictions: Go directly to [facility], do not eat or drink on the way, do not make any stops. Hand them the packet and tell them you are a transfer from [facility] for direct admission. Clinical Impressions Clinical Impression: Calculus of distal left ureter, Hydronephrosis Stand Alone Forms Stand Alone Forms: Transfer Record - ED Instructions Patient Instructions: DI for Acute Abdominal Pain Print Language Print Language: Mauritanian Discharge ED Provider: Ashok Pham General Adult HPI General Chief complaint: Abdominal Pain Stated complaint: possible kidney stone left side pain Time Seen by Provider: 03/04/24 09:17 History of Present Illness HPI narrative: 49-year-old female with history of previous kidney stones requiring lithotripsy, multiple recurrent urinary tract infections, kidney infections, hypertension, migraines, CAD presents to the ER with concerns of left flank pain and dysuria. Patient states she was evaluated at [facility] a few days ago and diagnosed with urinary tract infection and started on cefdinir. She states she was having flank pain at that time stated she has been tolerating it well until today. She reports today at work her pain became severe and she had nausea which she had not had previously with her other symptoms. She states she has been taking her antibiotics as directed for the last 2 days. She reports she took Tylenol earlier without improvement of symptoms. She states this feels similar to previous kidney stones. She reports the [facility] provider had encouraged her to get evaluated in the ER for concerns of stones previously, however at that time she refused. She states now she is more concerned. She denies fever, she does report dysuria but seems to be improving. No chest pain or difficulty breathing, no headaches or dizziness, no numbness, tingling, or weakness. No diarrhea or constipation. Related Data Home Medications ?Medication ?Instructions ?Recorded ?Confirmed celecoxib 200 mg capsule 200 mg PO DAILY 03/02/24 03/02/24 hydroxyzine pamoate 50 mg capsule 50 mg PO DAILY 03/02/24 03/02/24 methocarbamol 750 mg tablet 750 mg PO DAILY 03/02/24 03/02/24 sertraline 50 mg tablet 50 mg PO DAILY 03/02/24 03/02/24 valsartan 160 1 tab PO DAILY 03/02/24 03/02/24 mg-hydrochlorothiazide 25 mg tablet Previous Rx's ?Medication ?Instructions ?Recorded methocarbamol 500 mg tablet 500 mg PO TID PRN muscle spasm #15 12/20/23 tabs cefdinir 300 mg capsule 300 mg PO BID 10 days #20 caps 03/02/24 Allergies Allergy/AdvReac Type Severity Reaction Status Date / Time amlodipine Allergy Intermediate swelling Verified 03/04/24 09:33 legs and feet Penicillins [PENICILLINS] Allergy Intermediate I-RASH Verified 03/04/24 09:33 metoclopramide [From REGLAN] Allergy Mild NA-HALLUCIN Verified 03/04/24 09:33 ATIONS amoxicillin Allergy Unknown Verified 03/04/24 09:33 allergy reaction ibuprofen Allergy Nausea Verified 03/04/24 09:33 [facility] Disclaimer: The information contained in this section may have been updated after the patient was seen, as this information can be updated by other users. Medical History Witnessed apneic spells Daytime somnolence Snoring Dyspnea Facet arthropathy, lumbar Foot pain Carotid artery disease CKD (chronic kidney disease) stage 2, GFR 60-89 ml/min Lumbar radiculopathy Radiculopathy due to lumbar intervertebral disc disorder Chest pain Swelling SOB (shortness of breath) Other forms of angina pectoris Malignant essential hypertension Migraine Surgical History History of lithotripsy History of appendectomy History of tonsillectomy History of hysterectomy History of cholecystectomy Family History Other Family history of diabetes mellitus type II Family history of stroke Social History Smoking Status: Never smoker second hand exposure: Yes alcohol intake: never substance use type: denies use current occupational status: unemployed Travel in the last 8 weeks: None household members: family housing: house number of children: 4 current occupational exposures/hazards: No caffeine: Yes Other Medical History Have you received the Flu Vaccine for this season: Yes Have you received the Pneumonia Vaccine: No ROS Obtained: Yes All systems reviewed & no additional complaints except as documented Positive ROS per HPI Physical Exam General General appearance: alert and in no apparent distress Head Head exam: atraumatic and normocephalic Eye Eye exam: Present PERRL and EOMI ENT ENT exam: Present mucous membranes moist Neck Neck exam: Present normal inspection and full ROM Chest Chest inspection: Present symmetric chest wall rise Respiratory Respiratory exam: Present normal lung sounds bilaterally; Absent respiratory distress, wheezes or stridor Cardiovascular Cardiovascular exam: Present regular rate and normal rhythm Abdominal Exam Abdominal exam: Present soft; Absent distention, tenderness, guarding or rebound Extremities Exam Extremities exam: Present full ROM Back Exam Back exam: Present CVA tenderness (L); Absent CVA tenderness (R) Neurological Exam Neurological exam: Present alert and oriented X3; Absent motor sensory deficit Psychiatric Psychiatric exam: Present normal affect and normal mood Skin Skin exam: Present warm and dry Medical Decision Making Medical Records Medical records reviewed: Yes I reviewed the patient's medical records. Screening: Per USPSTF and CDC recommendations, given the prevalence of disease in our region, it is our hospital?s policy to screen for HIV and viral Hepatitis for all patients aged 18 and over and those with ongoing risk factors. MR Comment: [facility] note from 03/02/2024 demonstrates patient was prescribed cefdinir 300 twice daily for 10 days. Description of symptoms was similar. Mark Inquiry Pt receiving controlled substance: No Vital Signs: 03/04/24 09:22 03/04/24 09:23 03/04/24 09:30 Temperature 98.1 F Temperature Source Oral Pulse Rate 87 80 Pulse Rate [Left] 88 Respiratory Rate 16 Blood Pressure 161/106 H 187/98 H Blood Pressure [Right Arm] 161/106 H Blood Pressure Mean 139 127 Blood Pressure Mean [Right Arm] 124 Blood Pressure Source [Right Arm] Automatic Cuff Blood Pressure Position [Right Arm] Sitting 02 Sat by Pulse Oximetry 99 98 98 Oxygen Delivery Method Room Air 03/04/24 10:00 Temperature Temperature Source Pulse Rate 83 Pulse Rate [Left] Respiratory Rate Blood Pressure 179/108 H Blood Pressure [Right Arm] Blood Pressure Mean 131 Blood Pressure Mean [Right Arm] Blood Pressure Source [Right Arm] Blood Pressure Position [Right Arm] 02 Sat by Pulse Oximetry 97 Oxygen Delivery Method Lab Data Lab Results 03/04/24 09:22: WBC 11.9 H, RBC 4.57, Hgb 13.9, Hct 41.4, MCV 90.5, MCH 30.4, MCHC 33.6, RDW 13.2, Plt Count 342, MPV 6.9 L, Neut % (Auto) 73.5, Lymph % (Auto) 18.5, Howell % (Auto) 4.7, Eos % (Auto) 2.6, Baso % (Auto) 0.7, Neut # (Auto) 8.8 H, Lymph # (Auto) 2.2, Howell # (Auto) 0.6, Eos # (Auto) 0.3, Baso # (Auto) 0.1, Sodium 143, Potassium 3.5, Chloride 107, Carbon Dioxide 28, Anion Gap 11.5, BUN 14, Creatinine 0.90, Estimated Creat Clear 138, Estimated GFR 67, Est GFR ( Amer) 81, Glucose 97, Calcium 9.7, Total Bilirubin 0.9, AST 29, ALT 25, Alkaline Phosphatase 114, Total Protein 8.6 H, Albumin 4.8, Globulin 3.8 H, Albumin/Globulin Ratio 1.3, Lipase 161, Serum HCG, Qual Negative 03/04/24 09:22 03/04/24 09:22 Orders (Tests/Meds): ED MEDICATIONS Discontinued Medications Generic Name Dose Route Start Last Admin Trade Name Freq PRN Reason Stop Dose Admin Lactated Ringer's 1,000 mls @ 999 mls/hr 03/04/24 09:22 03/04/24 09:28 Lactated Ringer's 1000 Ml Bag IV 03/04/24 10:22 999 mls/hr .Q1H1M ONE Administration Iopamidol 75 ml 03/04/24 10:21 03/04/24 10:22 Iopamidol-370 (76%);100ml Bottle IV 03/04/24 10:22 75 ml ONCE ONE Administration Morphine Sulfate 4 mg 03/04/24 09:22 03/04/24 09:28 Morphine 4mg/Ml Syringe IV 03/04/24 09:23 4 mg ONCE ONE Administration Morphine Sulfate 4 mg 03/04/24 10:31 03/04/24 10:33 Morphine 4mg/Ml Syringe IV 03/04/24 10:32 4 mg ONCE ONE Administration Ondansetron HCl 4 mg 03/04/24 09:22 03/04/24 09:28 Ondansetron 4mg/2ml Vial IV 03/04/24 09:23 4 mg ONCE ONE Administration Sodium Chloride 10 ml 03/04/24 10:21 03/04/24 10:22 Sodium Chloride 0.9% 10ml Syr (Rad Only) IV 03/04/24 10:22 10 ml ONCE ONE Administration Tamsulosin HCl 0.4 mg 03/04/24 21:00 Tamsulosin 0.4mg Capsule PO 04/03/24 20:59 HS [place] Tamsulosin HCl 0.4 mg 03/04/24 10:35 Tamsulosin 0.4mg Capsule PO 03/04/24 10:36 ONCE ONE ORDERS Category Date Time Status CT abdomen pelvis w con Stat Cat Scan 03/04/24 09:22 Completed CBC w/Auto Diff [Complete Blood Count Auto Diff] Stat Lab 03/04/24 09:22 Completed CMP [Comprehensive Metabolic Panel] Stat Lab 03/04/24 09:22 Completed HCG Qualitative, Serum Stat Lab 03/04/24 09:22 Completed HIV (1&2) Antibody Rapid Stat Lab 03/04/24 09:22 Received Hep C Ab with Reflex to RNA Stat Lab 03/04/24 09:22 Received Lipase Stat Lab 03/04/24 09:22 Completed Medical Decision Narrative: In summary, this 49-year-old female with comorbidities as listed in HPI presents to the emergency department today with left flank pain despite being on abx for UTI. On initial evaluation patient is hemodynamically stable, afebrile, she appears uncomfortable but nontoxic, she has left CVA tenderness without other acute abnormalities on exam. Differential diagnosis includes but is not limited to urinary tract infection, pyelonephritis, perinephric abscess, nephrolithiasis, ureterolithiasis, hydronephrosis, kidney dysfunction, electrolyte abnormality. Based on these concerns, I ordered serum labs, CT imaging. Urinalysis was not ordered since patient had positive UA 2 days ago, will likely still be positive. Urine culture from 03/02 positive for E. coli and sensitivities are reassuring that cefdinir is adequate. Patient received morphine, Zofran, IV fluid for treatment. Labs personally reviewed demonstrate mild leukocytosis, no anemia, CMP nonactionable, no findings of kidney dysfunction. hCG negative. CT abdomen pelvis personally interpreted demonstrates distal left ureteral stone concerning for obstruction with significant hydroureter and hydronephrosis. See radiology read for final interpretation. Based on my personal interpretation, at 10:30 AM [facility] was called for urology transfer. Awaiting callback. [address] Green with urology at [facility], we discussed the case and patient's imaging findings. He agrees to take the patient and plans to place a stent tomorrow. I spoke with Dr. Espitia, the [facility] hospitalist, after reviewing the case and Dr. Green's recommendations, she accepted the patient for admission. Patient is appropriate for transfer via POV, her daughter is here to take her. IV was removed, daughter was given explicit instructions on going directly to [facility] without making any stops along the way, patient was instructed to remain nothing by mouth until after being evaluated by their physicians. Patient was provided a packet with her information from today as well as a disc containing imaging. Patient and daughter indicated understanding to all instructions, patient was transferred in stable condition. Critical Care Critical Care Time Critical Care Time: No
[2024-03-04] MEDS: MORPHINE 4MG/ML SYRINGE 4 MG IV ×2 (09:28→10:33)
[2024-03-04] MEDS: ONDANSETRON 4MG/2ML VIAL 4 MG IV (09:28)
[2024-03-04] MEDS: LACTATED RINGERS 1000ML 1,000 ML 999 ML IV (09:28)
[2024-03-04 09:37] LABS: Basophils # 0.1 K/mm3 (0-0.2); Basophils % 0.7 % (0.1-2.0); Eosinophils # 0.3 K/mm3 (0.0-0.4); Eosinophils % 2.6 % (0.1-12.0); Hematocrit 41.4 % (37.0-47.0); Hemoglobin 13.9 g/dL (12.2-16.2); Lymphocytes # 2.2 K/mm3 (0.7-4.5); Lymphocytes % 18.5 % (10-50); Mean Corpuscular HGB Conc 33.6 g/dL (31.8-35.4); Mean Corpuscular Hemoglobin 30.4 pg (27.0-31.2); Mean Corpuscular Volume 90.5 fl (81-99); Mean Platelet Volume 6.9 fl (7.4-10.4); Monocytes # 0.6 K/mm3 (0.1-1.0); Monocytes % 4.7 % (1.7-9.3); Neutrophils # 8.8 K/mm3 (1.8-7.8); Neutrophils % 73.5 % (37.0-80.0); Platelet Count 342 K/mm3 (142-424); Red Blood Count 4.57 M/mm3 (4.20-5.40); Red Cell Distribution Width 13.2 % (11.5-17.5); White Blood Count 11.9 K/mm3 (4.8-10.8)
[2024-03-04 09:46] LABS: Albumin Level 4.8 g/dl (3.5-5.0); Chloride 107 mmol/L (98-107); Potassium 3.5 mmoL/L (3.5-5.1); Sodium 143 mmol/L (136-145)
[2024-03-04 09:47] LABS: HCG Qualitative, Serum Negative (Negative)
[2024-03-04 09:49] LABS: Alanine Aminotransferase 25 U/L (12-78); Albumin/Globulin Ratio 1.3 (1.1-1.8); Alkaline Phosphatase 114 U/L (38-126); Anion Gap 11.5 mEq/L (5-15); Aspartate Amino Transferase 29 U/L (14-36); Bilirubin,Total 0.9 mg/dl (0.2-1.3); Blood Urea Nitrogen 14 mg/dl (7-17); Calcium 9.7 mg/dl (8.4-10.2); Carbon Dioxide 28 mmol/L (22.0-30.0); Creatinine Clearance Estimated 138 mL/min (50-200); Estimated Glomerular Filt Rate 67 ml/min (>60); GFR (African American) 81 ML/MIN (>60); Globulin 3.8 g/dL (1.3-3.2); Glucose 97 mg/dl (74-100); Total Protein,Serum 8.6 g/dl (6.3-8.2)
[2024-03-04 09:56] LABS: Lipase 161 U/L (23-300)
[2024-03-04] MEDS: SODIUM CHLORIDE 0.9% 10ML SYR (RAD ONLY) 10 ML IV (10:22)
[2024-03-04] MEDS: IOPAMIDOL-370 (76%);100ML BOTTLE 75 ML IV (10:22)
--- NOTE | 2024-03-04 10:28 | PC.NURSE ---
dr paredes at bedside to update pt
--- NOTE | 2024-03-04 10:35 | PC.NURSE ---
Called [facility] about this pt possibly going to [facility] for Urology. [facility] would get it out and they would call us back
[2024-03-04] MEDS: TAMSULOSIN 0.4MG CAPSULE 0.4 MG PO (10:36)
--- NOTE | 2024-03-04 11:13 | PC.NURSE ---
Dr Pham speaking with [employer] [facility]. Dr Pham is awaitng the hospitalist to spek with them about getting transferred
--- NOTE | 2024-03-04 12:04 | PC.NURSE ---
Transfer center for [facility] wanted us to wait to call report until 1200. I attempted to call and they stated the nurse has not arrived yet. They said the nurse, Sujatha, would be calling me to receive report at 1215.
--- NOTE | 2024-03-04 12:38 | PC.NURSE ---
I attempted to call report to [facility]/surg again. I was unable to reach the nurse.
--- NOTE | 2024-03-04 12:50 | PC.NURSE ---
Report called to Sujatha LINDSAY
[2024-03-04 13:51] LABS: HIV (1&2) Antibody Rapid NONREACTIVE (NONREACTIVE)
[2024-03-05 05:11] LABS: HCV Ab Non Reactive (Non Reactive)
== END 2024-03-04 13:06 | disposition short-term general hospital (02) ==
PROVIDERS: Emergency Provider Emergency Medicine; PCP Internal Medicine Adolescent Medicine
DX: N20.1 Calculus of ureter (principal); N13.30 Unspecified hydronephrosis
CPT/HCPCS: 74177; 80053; 83690; 84703; 85025; 86803; 87389; 96361; 96374; 96375; 96376; 99285; J2270; J2405; J7120; Q9967

== ENCOUNTER 2024-04-04 16:30 | Emergency (ER) | payer OTHER, SELFPAY ==
--- OUTSIDE RECORDS SUMMARY | 2024-04-04 16:33 | XMS_ITS | Encounter Summary ---
Author Organization [facility] Address [address] [place] [address] Care Team Providers Care Gamewell Operator Name Role Phone Mahesh Horton MD Primary Care Provider [phone] Encounter Details Date Type Department Care Team (Latest Contact Info) Description 08/25/2022 Travel Social History Tobacco Use Types Packs/Day Years Used Date Smoking Tobacco: Never Alcohol Use Standard Drinks/Week Comments No 0 (1 standard drink = 0.6 oz pur e alcohol) Comments Unknown Sex and Gender Information Value Date Recorded Sex Assigned at Not on file Legal Sex Female 8:05 PM EDT Gender Identity Not on file Sexual Orientation Not on file COVID-19 Exposure Response Date Recorded In the last 10 days, have yo u been in contact with someone who was confirmed or suspected to have Coronavirus/COVID-19? No / Unsure 08/25/2022 2:49 PM EDT documented as of this encounter Plan of Treatment Not on file documented as of this encounter Visit Diagnoses Not on filedocumented in this encounter Care Teams Gamewell Operator Relationship Specialty Start Date End Date Mahesh Horton MD [address] [facility] [place] [address] PCP - General 09/14/20 08/31/22 documented as of this encounter
--- OUTSIDE RECORDS SUMMARY | 2024-04-04 16:33 | XMS_ITS | Encounter Summary ---
Author Organization [facility] Address [address] [place] [address] Care Team Providers Care Food And Beverage Server Name Role Phone Mahesh Horton MD Primary Care Provider [phone] Kaya Braden GLOBAL PROGRAM MANAGER Unavailable [phone] Erica Tucker GLOBAL PROGRAM MANAGER Primary Care Provider [phone] Encounter Details Date Type Department Care Team (Latest Contact Info) Description 11/08/2021 [facility] [address] [place] [address] Zee Avery, [place] [address] [facility] [place] [place] [address] Lumbar radiculopathy (Primary Dx) Social History Tobacco Use Types Packs/Day Years Used Date Smoking Tobacco: Never Alcohol Use Standard Drinks/Week Comments No 0 (1 standard drink = 0.6 oz pur e alcohol) Comments Unknown Sex and Gender Information Value Date Recorded Sex Assigned at Not on file Legal Sex Female 8:05 PM EDT Gender Identity Not on file Sexual Orientation Not on file documented as of this encounter Plan of Treatment Not on file documented as of this encounter Visit Diagnoses Diagnosis Lumbar radiculopathy- Primary Thoracic or lumbosacral neuritis or radiculitis, unspecified documented in this encounter Care Teams Food And Beverage Server Relationship Specialty Start Date End Date Mahesh Horton MD [address] [place] [address] PCP - General 09/14/20 08/31/22 Erica Tucker APRN [address] [facility] [address] [facility] [address] [place] [address] PCP - General 09/01/22 Kaya Braden APRN [address] [facility] [address] [place] [id number] Nurse Practitioner Neurosurgery 09/01/22 documented as of this encounter
--- OUTSIDE RECORDS SUMMARY | 2024-04-04 16:33 | XMS_ITS | Encounter Summary ---
Author Organization [facility] Address [address] [place] [address] Care Team Providers Care Lodging Manager Name Role Phone Mahesh Horton MD Primary Care Provider [phone] Reason for Visit * Reason Onset Date Comments HCN - Patient Message 12/25/2021 Reschedule appointment Encounter Details Date Type Department Care Team (Late st Contact Info) Description 12/25/2021 [facility]phone [facility] [address] [place] [address] Kaya Braden, CONTRACT ASSOCIATE [address] [place] [address] HCN - Patient Message (Reschedule appointment) Social History Tobacco Use Types Packs/Day Years [...] on file documented as of this encounter Miscellaneous Notes * Telephone Encounter - Melissa Thacker - 12/25/2021 1:06 PM EDT Patient Phone Message Reason for Call: Patient is calling to reschedule her appointment that she missed. Please advise. Best contact number and optimal time of day to reach caller: [phone] Note: Please do not reply to this message. Follow-up communication and further actions as a result of this message need to be communicated with the patient directly, if the patient is not active onMyChart. If the patient is active on MyChart, they will receive notification of the communication/outcome via MyChart. documented in this encounter Plan of Treatment Not on file documented as of this encounter Visit Diagnoses Not on filedocumented in this encounter Care Teams Lodging Manager Relationship Specialty Start Date End Date Mahesh Horton MD [address] [place] [address] PCP - General 09/14/20 08/31/22 documented as of this encounter
--- OUTSIDE RECORDS SUMMARY | 2024-04-04 16:33 | XMS_ITS | Encounter Summary ---
Author Organization [facility] Address [address] [place] [address] Care Team Providers Care Customs Compliance Manager Name Role Phone Kaya Braden GROUP LEADER SEMICONDUCTOR PROCESSING Unavailable [phone] Erica Tucker GROUP LEADER SEMICONDUCTOR PROCESSING Primary Care Provider [phone] Reason for Visit * Reason Comments Follow-up Back Pain * Consultation (Routine) - Closed Specialty Diagnoses / Procedures Referred By Contac t Referred To Contact Neurosurgery Diagnoses Low back pain, unspecified back pain laterality, unspecified chronicity, unspecified whether sciatica present Erica Tucker, GROUP LEADER SEMICONDUCTOR PROCESSING [address] [facility] [address] [place] [address] Phone: tel: fax: Referral ID Status Reason Start Date Expiration Date V isits Requested Visits Authorized [id number] Closed Specialty Services Required 06/27/2022 12/27/2023 1 1 Encounter Details Date Type Department Care Team (Late st Contact Info) Description 09/01/2022 10:00 AM EDT Consult [place] [facility] [address], [address] [place] [address] Kaya Braden, GROUP LEADER SEMICONDUCTOR PROCESSING [address] [place] [address] Dorsalgia of lumbar region (Primary Dx); Scoliosis, unspecified scoliosis type, unspecified spinal region; Lumbar radiculopathy; Facet hypertrophy of lumbar region; Facet arthropathy, lumbar; Spinal stenosis of lumbar region with neurogenic claudication Social History Tobacco Use Types Packs/Day Years Used Date Smoking Tobacco: Former Cigarettes 0.3 1 Smokeless Tobacco: Never Tobacco Cessation:Counseling Given: Not Answered Alcohol Use Standard Drinks/Week Comments No 0 [...] PM EDT documented as of this encounter Last Filed Vital Signs Vital Sign Reading Time Taken Comments Blood Pressure 90/60 09/01/2022 9:29 AM EDT Pulse 73 09/01/2022 9:29 AM EDT Temperature - - Respiratory Rate - - Oxygen Saturation 95% 09/01/2022 9:29 AM EDT Inhaled Oxygen Concentration - - Weight 127 kg (281 lb) 09/01/2022 9:29 AM EDT Height 167.6 cm (5' 6 ) 09/01/2022 9:29 AM EDT Body Mass Index 45.35 09/01/2022 9:29 AM EDT documented in this encounter Miscellaneous Notes * Progress Notes - Kaya Walsh APRN - 09/01/2022 10:00 AM EDT We had the pleasure of seeing your patient in our clinic today for continued Neurosurgical evaluation. Chief Complaint Patient presents with Follow-up Back Pain History Of Present Illness Jasmin Anderson is a 47 y.o. female who returns to the neurosurgical clinic today regarding low back pain. As you may recall, the patient last saw Lelo Yung PA-C on 12/29/2019. After reviewing her note, the patient was sent back to Dr. Hernandez for MBBs and RFNAs. The patient only completed lumbar epidural steroid injections, which provided 0% relief. She reports continued bilateral radicularleg pain; left equal to right. It radiates posteriorly to the knee and sometimes the feet. She alsoreports numbness/tingling in her feet if she crosses her legs are propping him greater than 2 minutes. Pain is worse with prolonged bending and walking greater than 5 minutes and alleviated with sitting, lying on her left side, and lying supine for short periods of time. Positive shopping cart sign. Stairs are difficult for. Back pain worse than leg pain. She can not give me percentages. She alsoreports muscle spasms throughout her back. She was on gabapentin 800 mg 3 times a day for 1 year with 0% relief. She denies bowel/bladder incontinence saddle anesthesia. She is completed 2 rounds of p hysical therapy without pain benefit. Past Medical History: Diagnosis Date Anxiety and depression Chronic kidney disease Hypertension Liver disease Renal calculi Past Surgical History: Procedure Laterality Date HYSTERECTOMY KIDNEY STONE SURGERY RENAL LITHOTRIPSY TONSILLECTOMY Family History Problem Relation Name Age of Onset Stroke Mother Stroke Other Hypertension Mother Hypertension Other Other cancer Mother Other cancer Other Social History Tobacco Use Smoking status: Former Packs/day: 0.25 Years: 1.00 Pack years: 0.25 Types: Cigarettes Smokeless tobacco: Never Substance Use Topics Alcohol use: No Drug use: Never Current Outpatient Medications Medication Instructions [place] 0.65 % nasal spray INSTILL 2 SPRAYS IN EACH NOSTRIL EVERY 4 HOURS NEEDED FOR nasal congestion carvedilol (Coreg) 25 MG tablet No dose, route, or frequency recorded. dapagliflozin (Farxiga) 10 MG tablet No dose, route, or frequency recorded. doxycycline (Vibramycin) 100 MG capsule TAKE ONE CAPSULE BY MOUTH TWICE DAILY FOR 7 DAYS -- FINISH ALL MEDICINE -- estradiol (Vivelle-DOT) 0.1 MG/24HR APPLY 1 PATCH TOPICALLY TWICE WEEKLY hydrOXYzine HCl (ATARAX) 50 mg, Oral, Nightly omeprazole (PriLOSEC) [address] capsule No dose, route, or frequency recorded. pregabalin (LYRICA) 75 mg, Oral, 2 times daily tiZANidine-Liniment (tiZANidine COMFORT PAC) 4 MG misc No dose, route, or frequency recorded. traMADol (Ultram) 50 MG tablet No dose, route, or frequency recorded. valsartan-hydroCHLOROthiazide (Diovan-HCT) 320-12.5 MG tablet 350 tablets Allergies Penicillins, Amlodipine, Ibuprofen, Penicillin g, and Reglan [metoclopramide] Review of Systems 14 point review of systems was performed and was negative except as noted per HPI. Visit Vitals BP 90/60 Pulse 73 Ht 1.676 m (5' 6 ) Wt 127 kg (281 lb) SpO2 95% BMI 45.35 kg/m?? Smoking Status Former BSA 2.43 m?? Objective: General Physical Exam Constitutional No acute distress. Patient is appropriate historian and cooperative throughout exam.Well nourished, well groomed. Alert and oriented x4. Head Normocephalic and atraumatic. Eyes Pupils are equal, round, and reactive to light. Neck No tracheal deviation or JVD noted. No previous surgical scars Cardiovascular Minimal to no peripheral edema, intact distal pulses Pulmonary/Chest No increased effort noted, no shortness of breath Neurological Alert and oriented to person, place, and time Skin Skin is warm and dry Psychiatric Normal mood and affect, behavior and judgment MUSCULOSKELETAL EXAM: Region Exam Right (+/-) Left (+/-) Lumbar Musculature Tender w/ palpation + + Lumbar Facet Pain w/ extension + + Sacroiliac Joint Quan's Finger (PSIS) + + Lower Extremity Motor Strength Right Left L2: Hip Flexor 5/5 5/5 L3: Knee extensor 5/5 5/5 L4: Dorsiflexion 5/5 5/5 L5: EHL 5/5 5/5 S1: Plantar Flexion 5/5 5/5 Lower Extremity Sensation Right Left L2: Proximal anterior thigh Intact Intact L3: Mid anterior thigh Intact Intact L4: Medial leg/foot, great toe (Saphenous n.) Intact Intact L5: Dorsum of mid foot Intact Intact S1: Lateral leg/foot, little toe, Back of leg (Sural n.) Intact Intact Reflexes & Tests Right Left L4: Patellar 1/4 1/4 S1: Achilles /4 /4 SLR Positive Positive LEONARDO Negative Negative Imaging I personally reviewed and interpreted MRI of the lumbar spine obtained 11/07/2021. Imaging demonstrates the following stenosis: Central canal stenosis Right neural foramen Left neural foramen L1-L2 No significant stenosis No significant stenosis No significant stenosis L2-L3 No significant stenosis No significant stenosis No significant stenosis L3-L4 No significant stenosis No significant stenosis Mild L4-L5 No significant stenosis Mild Mild L5-S1 Disc bulge with left S1 compromise Mild Moderate I have also personally reviewed the radiology report. Assessment and Plan Jasmin Anderson is a 47 y.o. female who returns to the neurosurgical clinic today regarding low back pain. I would the patient with x-ray orders for scoliosis and AP/lateral lumbar x-rays flexion-extension to be obtained at [facility] per her request. I have also ordered a lumbar MRI to assess for any new nerve compression as this has progressively worsened over time. Imaging will becompleted at [facility]. After the imaging is obtained, the patient will mail me the disc. Once I receive the disc, I will review the imaging with Dr. Schultz. After I discuss with Dr. Schultz, I will contact the patient with the updated plan of care and addend this note. I have also trialed Lyrica 75 mg twice a day. The patient is being prescribed a controlled substance. The patient has been counseled on the risks and benefits of the medication. I have reviewed with the patient the controlled substance agreement and the patient understands the risks of taking a controlled substance and the expectations set forth in the controlled substance agreement. The [facility] system has been queriedand we have reviewed report prior to prescribing Schedule II, III, and IV medications that require review by law. PDMP data reviewed and appropriate in [facility]. Depending on the x-ray and MRI results, the patient may benefit from hip injections. Kaya Walsh APRN [facility] Department of Neurosurgery documented in this encounter Plan of Treatment Not on file documented as of this encounter Visit Diagnoses Diagnosis Dorsalgia of lumbar region- Primary Scoliosis, unspecified scoliosis type, unspecified spinal region Lumbar radiculopathy Thoracic or lumbosacral neuritis or radiculitis, unspecified Facet hypertrophy of lumbar region Facet arthropathy, lumbar Spinal stenosis of lumbar region with neurogenic claudication documented in this encounter Additional Health Concerns Assessment Noted Time A fall risk assessment has been complete d for the patient 09/01/2022 9:42 AM EDT A Body Mass Index follow-up plan has been documented for the patient 09/01/2022 12:55 PM EDT documented as of this encounter Care Teams Customs Compliance Manager Relationship Specialty Start Date End Date Erica Tucker APRN [address] [place] [address] [place] [address] PCP - General 09/01/22 Kaya Braden APRN [address] [place] [address] Nurse Practitioner Neurosurgery 09/01/22 documented as of this encounter
--- OUTSIDE RECORDS SUMMARY | 2024-04-04 16:33 | XMS_ITS | Encounter Summary ---
Author Organization [facility] Address [address] [place] [address] Care Team Providers Care Bulk Tank Driver Name Role Phone Kaya Braden CART DRIVER Unavailable [phone] Erica Tucker APRN Primary Care Provider [phone]- [phone] Encounter Details Date Type Department Care Team (Latest Contact Info) Description 09/01/2022 Travel Social History Tobacco Use Types Packs/Day Years Used Date Smoking Tobacco: Former Cigarettes 0.3 1 Smokeless Tobacco: Never Alcohol Use Standard Drinks/Week Comments [...] Diagnoses Not on filedocumented in this encounter Additional Health Concerns Assessment Noted Time A fall risk assessment has been complete d for the patient 09/01/2022 9:42 AM EDT A Body Mass Index follow-up plan has been documented for the patient 09/01/2022 12:55 PM EDT documented as of this encounter Care Teams Bulk Tank Driver Relationship Specialty Start Date End Date Erica Tucker APRN [address] [facility] [address] [place] [address] PCP - General 09/01/22 Kaya Braden APRN [address] [facility] [address] [place] [address] Nurse Practitioner Neurosurgery 09/01/22 documented as of this encounter
--- OUTSIDE RECORDS SUMMARY | 2024-04-04 16:33 | XMS_ITS | Encounter Summary ---
Author Organization [facility] Address [address] [place] [address] Care Team Providers Care Vending Machine Operator Name Role Phone Mahesh Horton MD Primary Care Provider + [phone] Encounter Details Date Type Department Care Team (Late st Contact Info) Description 07/02/2022 Telephone [place] [facility] [address], [address] [place] [address] Lelo Yung PA [address] [place] [address] Social History Tobacco Use Types Packs/Day Years [...] encounter Miscellaneous Notes * Telephone Encounter - Jeanne Hammond - 07/02/2022 1:36 PM EST Pt called back for scheduling. She is only available on Mondays and Thursday for scheduling. She will not aviable on July 14. documented in this encounter Plan of Treatment Not on file documented as of this encounter Visit Diagnoses Not on filedocumented in this encounter Care Teams Vending Machine Operator Relationship Specialty Start Date End Date Mahesh Horton MD [address] [place] [address] PCP - General 09/14/20 08/31/22 documented as of this encounter
--- OUTSIDE RECORDS SUMMARY | 2024-04-04 16:33 | XMS_ITS | Clinical Summary ---
Author Organization [facility] Address [address] [place] [address] Care Team Providers Care Metal Hardener Name Role Phone Kaya Braden NUCLEAR FUELS RECLAMATION ENGINEER Unavailable [phone] Erica Tucker NUCLEAR FUELS RECLAMATION ENGINEER Primary Care Provider [phone] Allergies Active Allergy Reactions Criticality Noted Date Comments Amlodipine Unknown - Patient st ates they do not know rxn details Low 10/01/2018 Ibuprofen Other - please docum ent in the comment field Low 09/01/2022 Penicillin G Unknown - Patient st ates they do not know rxn details Low 04/18/2013 Penicillins Itching,Rash,Unknown - Patient states they do not know rxn details Medium 01/03/2000 Metoclopramide Anxiety,Unknown - Pa tient states they do not know rxn details Low 04/18/2013 Medications valsartan-hydroCH LOROthiazide (Diovan-HCT) 320-12.5 MG tablet 350 tablets. 1 Active traMADol (Ultram) 50 MG tablet 3 Active tiZANidine-Linime nt (tiZANidine COMFORT PAC) 4 MG misc 2 Active [place] 0.65 % nasal spray INSTILL 2 SPRAYS IN EACH NOSTRIL EVERY 4 HOURS NEEDED FOR nasal congestion 2 Active omeprazole (PriLOSEC) [address] capsule 3 Active hydrOXYzine HCl (Atarax) 25 MG tablet Take 50 mg by mouth every night. 3 Active estradiol (Vivelle-DOT) 0.1 MG/24HR APPLY 1 PATCH TOPICALLY TWICE WEEKLY 3 Active doxycycline (Vibramycin) 100 MG capsule TAKE ONE CAPSULE BY MOUTH TWICE DAILY FOR 7 DAYS -- FINISH ALL MEDICINE -- 3 Active dapagliflozin (Farxiga) 10 MG tablet 3 Active carvedilol (Coreg) 25 MG tablet 9 Active pregabalin (Lyrica) 75 MG capsuleIndication s:Lumbar radiculopathy Take 1 capsule (75 mg total) by mouth 2 (two) times a day for 14 days. 28 capsule 3 Active Active Problems No known active problems Family History Medical History Relation Name Comments Hypertension Mother Other cancer Mother Stroke Mother Stroke Other 1 Hypertension Other 2 Other cancer Other 3 Relation Name Status Comments Mother Other 1 Other 2 Other 3 Social History Tobacco Use Types Packs/Day Years [...] on file Sexual Orientation Not on file Last Filed Vital Signs Vital Sign Reading [...] Mass Index 45.35 09/01/2022 9:29 AM EDT Plan of Treatment Health Maintenance Due Date Last Done Comments [facility]-Depression Screening 1977 [facility]-/Child/Adol SDOH Screenings 1977 [facility]- SDOH Screenings 1995 [facility]-Adult SDOH Screenings 1995 [facility]-DTaP,Tdap,and Td Vaccine s (1 - Tdap) 02/11/1996 [facility]-Hepatitis B Vaccines (1 of 3 - 19+ 3-dose series) 02/11/1996 [facility]-Pap Smear 1998 [facility]-Cervical Cancer Screening 2007 [facility]-HPV/Cotest 2007 CT Colonography 2022 Colonoscopy 2022 FIT-DNA 2022 FIT 2022 FOBT 2022 Sigmoidoscopy 2022 [facility]-Colorectal Cancer Screening 2022 [id number] Vaccine ( season) 2024 04/09/2021, 10/02/2020, 09/04/2020 [facility]-Influenza Vaccine (#1) 01/03/202404/09, 06/18/2020, 06/08/2020 [facility]-Zoster Vaccines (1 of 2) 2027 [facility]-RSV Vaccine: 60+ Years o r (1 - 1-dose 75+ series) 02/11/2052 [facility]-HIB Vaccines Aged Out No longer e ligible based on patient's age to complete this topic [facility]-HPV Vaccines Aged Out No longer e ligible based on patient's age to complete this topic [facility]-Hepatitis A Vaccines Aged Out No longer eligible based on patient's age to complete this topic [facility]-IPV Vaccines Aged Out No longer e ligible based on patient's age to complete this topic [facility]-Pneumococcal Vaccine: Pediatrics (0 to 5 Years) and At-Risk Patients (6 to 64 Years) Aged Out No longer eligible b ased on patient's age to complete this topic [facility]-Rotavirus Vaccines Aged Out No lo nger eligible based on patient's age to complete this topic Insurance [employer] [facility] MEDICAID Care Teams Metal Hardener Relationship Specialty Start Date End Date Erica Tucker APRN [address] [facility] [address] [facility] [address] [place] [address] PCP - General 09/01/22 Kaya Braden APRN [address] [facility] [address] [place] [address] Nurse Practitioner Neurosurgery 09/01/22
--- OUTSIDE RECORDS SUMMARY | 2024-04-04 16:33 | XMS_ITS | Encounter Summary ---
Author Organization [facility] Address [address] [place] [address] Care Team Providers Care Director Instrumentation Name Role Phone Kaya Braden PEDIATRIC CARE COORDINATOR Unavailable [phone] Erica Tucker PEDIATRIC CARE COORDINATOR Primary Care Provider [phone]- [phone] Reason for Visit * Reason Onset Date Comments HCN - Patient Message 09/26/2022 Encounter Details Date Type Department Care Team (Late st Contact Info) Description 09/26/2022 Telephone [place] [facility] [address], [address] [place] [address] Kaya Braden, PEDIATRIC CARE COORDINATOR [address] [place] [address] HCN - Patient Message Social History Tobacco Use Types Packs/Day Years [...] encounter Miscellaneous Notes * Telephone Encounter - Maria T Sal - 09/26/2022 9:08 AM EDT Sent powershare request. * Telephone Encounter - Saeid Kraftyla - 09/26/2022 8:58 AM EDT Patient Phone Message Reason for Call: Pt says she had 2 sets of xrays and a MRI done at [facility] When is she to follow up Best contact number and optimal time of day to reach caller: [phone] /pt Note: Please do not reply to this message. Follow-up communication and further actions as a result of this message need to be communicated with the patient directly, if the patient is not active onMyChart. If the patient is active on MyChart, they will receive notification of the communication/outcome via [employer]. documented in this encounter Plan of Treatment [...] documented as of this encounter Care Teams Director Instrumentation Relationship Specialty Start Date End Date Erica Tucker APRN [facility] [address] [facility] [address] [place] [address] PCP - General 09/01/22 Kaya Braden APRN [address] [facility] [address] [place] [address] Nurse Practitioner Neurosurgery 09/01/22 documented as of this encounter
--- OUTSIDE RECORDS SUMMARY | 2024-04-04 16:33 | XMS_ITS | Encounter Summary ---
Author Organization [facility] Address [address] [place] [address] Care Team Providers Care Armored Vehicle Officer Name Role Phone Mahesh Horton MD Primary Care Provider + [phone] Reason for Visit * Reason Onset Date Comments HCN - Patient Message 07/07/2022 Please ana m l patient to schedule her NS appt Encounter Details Date Type Department Care Team (Late st Contact Info) Description 07/07/2022 Telephone [place] [facility] [address] [place] [address] Neurosurgery, Physician, [address] [place], [place] [id number] HCN - Patient Message (Please call patient to schedule her NS appt) Social History Tobacco Use Types Packs/Day Years [...] Telephone Encounter - Maria T Sal - 07/07/2022 9:49 AM EST Spoke with patient and scheduled. * Telephone Encounter - Kelly Nieves - 07/07/2022 8:44 AM EST Patient Phone Message Reason for Call: Please call patient to schedule her NS appt Best contact number and optimal time of day to reach caller: [phone] Note: Please do not reply to this message. Follow-up communication and further actions as a result of this message need to be communicated with the patient directly, if the patient is not active onMyChart. If the patient is active on MyChart, they will receive notification of the communication/outcome via [employer]. documented in this encounter Plan of Treatment Not on file documented as of this encounter Visit Diagnoses Not on filedocumented in this encounter Care Teams Armored Vehicle Officer Relationship Specialty Start Date End Date Mahesh Horton MD [address] [place] [address] PCP - General 09/14/20 08/31/22 documented as of this encounter
--- OUTSIDE RECORDS SUMMARY | 2024-04-04 16:33 | XMS_ITS | Encounter Summary ---
Author Organization [facility] Address [address] [place] [address] Care Team Providers Care Threat Analyst Name Role Phone Mahesh Horton MD Primary Care Provider + [phone] Reason for Visit * Reason Onset Date Comments HCN - Patient Message 01/27/2022 Reschedule appointment to this afternoon Encounter Details Date Type Department Care Team (Late st Contact Info) Description 01/27/2022 Telephone [place] [facility] [address] [place] [address] Kaya Braden, CHIROPRACTOR SOLE PRACTITIONER [address] [place] [address] HCN - Patient Message (Reschedule appointment to this afternoon) Social History Tobacco Use Types Packs/Day Years [...] Telephone Encounter - Maria T Sal - 01/27/2022 10:09 AM EDT Rescheduled for Thursday. Spoke w/ patient. * Telephone Encounter - Melissa Thacker - 01/27/2022 9:07 AM EDT Patient Phone Message Reason for Call: Patient is wanting to know if there is anyway that she can be seen this afternoon. She said that her car broke down and someone is coming to get her but she won't make it by 9:30. Please advise. Best contact number and optimal time of day to reach caller: [phone] Note: Please do not reply to this message. Follow-up communication and further actions as a result of this message need to be communicated with the patient directly, if the patient is not active onMyChart. If the patient is active on MyChart, they will receive notification of the communication/outcome via [employer]. documented in this encounter Plan of Treatment Not on file documented as of this encounter Visit Diagnoses Not on filedocumented in this encounter Care Teams Threat Analyst Relationship Specialty Start Date End Date Mahesh Horton MD [address] [place] [address] PCP - General 09/14/20 08/31/22 documented as of this encounter
--- OUTSIDE RECORDS SUMMARY | 2024-04-04 16:33 | XMS_ITS | Encounter Summary ---
Author Organization [facility] Address [address] [place] [address] Care Team Providers Care Performance Reporter Name Role Phone Mahesh Horton MD Primary Care Provider + [phone] Encounter Details Date Type Department Care Team (Late st Contact Info) Description 07/02/2022 Telephone [place] [facility] [address] [place] [address] Lelo Yung, PA [address] [place] [address] Social History Tobacco Use Types [...] Telephone Encounter - Jeanne Hammond - 07/02/2022 11:17 AM EST I'm calling to schedule an appt with Lelo. Looks like pt has had a few no-shows with another provider and I will need to talk to pt prior to scheduling. documented in this encounter Plan of Treatment Not on file documented as of this encounter Visit Diagnoses Not on filedocumented in this encounter Care Teams Performance Reporter Relationship Specialty Start Date End Date Mahesh Horton MD [address] [place] [address] PCP - General 09/14/20 08/31/22 documented as of this encounter
[2024-04-04 17:25] VITALS: BP 125/92; PULSE 94; RESP 20; TEMP 36.8; O2SAT 98; BMI 36.3
--- NOTE | 2024-04-04 17:42 | ED_ITS ---
Discharge Plan Disposition Patient Disposition: Still a Patient Prescriptions Prescriptions: No Action celecoxib 200 mg capsule 200 mg PO DAILY Patient Comments: TAKE ONE CAPSULE BY MOUTH EVERY DAY hydroxyzine pamoate 50 mg capsule 50 mg PO DAILY Patient Comments: TAKE 1 TO 2 CAPSULE(S) BY MOUTH EVERY EVENING NEEDED FOR SLEEP valsartan-hydrochlorothiazide 160-25 mg tablet 1 tab PO DAILY carvedilol 6.25 mg tablet 6.25 mg PO BID Patient Comments: TAKE ONE TABLET BY MOUTH TWICE DAILY Referrals Follow up/Referrals: David Garcia MD [Primary Care Provider] - See instructions Instructions Patient Instructions: DI for Acute Abdominal Pain Print Language Print Language: Luxembourgish Discharge ED Provider: Briana Simmons [facility] General Chief complaint: Abdominal Pain Stated complaint: abd pain, V/D Mode of Arrival: Ambulatory Source of Information: Patient Limitations: No Limitations Time Seen by Provider: 04/04/24 17:44 Description of Symptoms (Recalled from Triage Doc. by RN): PATIENT C/O SEVERE UPPER ABOMINAL PAIN THAT STARTED YESTERDAY. SHE STATES PAIN HAS GOTTEN WORSE AND HAS ALSO DEVELOPED VOMITING AND DIARRHEA. HEENT Symptoms (Recalled from RN notes): No Resp Symptoms (Recalled from RN notes): No Skin Symptoms (Recalled from RN notes): No MS Symptoms (Recalled from RN notes): No Functional Status (Recalled from RN notes): WNL History of Present Illness Provider Complaint: Patient states that she started yesterday with severe upper abdominal pain that goes across the top of her stomach States that she thought it may have been gas and took some OTC medications but nothing has helped and the pain has continued to get worse States that she had to leave work this morning because she couldnt stand up straight and the pain has caused her to have N/V and she did have a little diarrhea earlier States that she had lithotripsy done on 03/06 at [facility] and they pulled the stent last week Denies any difficulty urinating Related Data Home Medications ?Medication ?Instructions ?Recorded ?Confirmed celecoxib 200 mg capsule 200 mg PO DAILY 03/02/24 04/04/24 hydroxyzine pamoate 50 mg capsule 50 mg PO DAILY 03/02/24 04/04/24 valsartan 160 1 tab PO DAILY 03/02/24 04/04/24 mg-hydrochlorothiazide 25 mg tablet carvedilol 6.25 mg tablet 6.25 mg PO BID 04/04/24 04/04/24 Allergies Allergy/AdvReac Type Severity Reaction Status Date / Time amlodipine Allergy Intermediate swelling Verified 03/04/24 09:33 legs and feet Penicillins (PENICILLINS) Allergy Intermediate I-RASH Verified 03/04/24 09:33 metoclopramide (From REGLAN) Allergy Mild NA-HALLUCIN Verified 03/04/24 09:33 ATIONS amoxicillin Allergy Unknown Verified 03/04/24 09:33 allergy reaction ibuprofen Allergy Nausea Verified 03/04/24 09:33 Worker's Comp Is this a Worker's Comp case?: No [facility] Disclaimer: The information contained in this section may have been updated after the patient was seen, as this information can be updated by other users. Medical History Witnessed apneic spells Daytime somnolence Snoring Dyspnea Facet arthropathy, lumbar Foot pain Carotid artery disease CKD (chronic kidney disease) stage 2, GFR 60-89 ml/min Lumbar radiculopathy Radiculopathy due to lumbar intervertebral disc disorder Chest pain Swelling SOB (shortness of breath) Other forms of angina pectoris Malignant essential hypertension Migraine Surgical History History of lithotripsy History of appendectomy History of tonsillectomy History of hysterectomy History of cholecystectomy Family History Other Family history of diabetes mellitus type II Family history of stroke Social History Smoking Status: Former smoker second hand exposure: Yes alcohol intake: never substance use type: denies use current occupational status: unemployed Travel in the last 8 weeks: None household members: family housing: house number of children: 4 current occupational exposures/hazards: No caffeine: Yes ROS Obtained: Yes All systems reviewed & no additional complaints except as documented and Yes Systems reviewed as appropriate & no additional complaints except as documented Constitutional Constitutional: Reports system reviewed and no additional complaints, except as documented, Reports as per HPI and Denies fever(s) ENT Ears, Nose, Mouth, and Throat: Reports system reviewed and no additional complaints, except as documented and Reports as per HPI Cardiovascular Cardiovascular: Reports system reviewed and no additional complaints, except as documented and Reports as per HPI Respiratory Respiratory: Reports system reviewed and no additional complaints, except as documented and Reports as per HPI Gastrointestinal Gastrointestingal: Reports system reviewed and no additional complaints, except as documented, as per HPI, abdominal pain (reports pain in upper abdomen that at times goes into her back ), diarrhea, nausea and vomiting Physical Exam General General appearance: alert and in no apparent distress ENT ENT exam: Present mucous membranes moist Respiratory Respiratory exam: Present normal lung sounds bilaterally; Absent respiratory distress or wheezes Cardiovascular Cardiovascular exam: Present regular rate, normal rhythm and normal heart sounds Abdominal Exam Abdominal exam: Present tenderness (reports tenderness with palpation in upper abdomen) and normal bowel sounds Neurological Exam Neurological exam: Present alert, oriented X3 and normal gait Medical Decision Making Medical Records Screening: Per USPSTF and CDC recommendations, given the prevalence of disease in our region, it is our hospital?s policy to screen for HIV and viral Hepatitis for all patients aged 18 and over and those with ongoing risk factors. Mark Inquiry Pt receiving controlled substance: No Mark was queried for this patient: No Vital Signs: 04/04/24 17:25 Temperature 98.2 F Temperature Source Oral Pulse Rate [Right Brachial] 94 H Respiratory Rate 20 Blood Pressure [Right Arm] 125/92 H Blood Pressure Mean [Right Arm] 103 Blood Pressure Source [Right Arm] Automatic Cuff Blood Pressure Position [Right Arm] Sitting 02 Sat by Pulse Oximetry 98 Oxygen Delivery Method Room Air Lab Data 04/04/24 18:30 04/04/24 18:30 Medical Decision Narrative: Patient had lithotripsy on 03/06 and they pulled the last stent last week States that she started yesterday with severe upper abdominal pain that at times will go through into her back, states that she thought it may be gas and has taken several OTC medications and nothing has helped States she had to leave work today and has been laying in the bed and this evening the pain was getting worse Discussed with patient about transfer to the ED for furhter work up and evaluation and she agreed Called ED patient moved to ED for further work up and evaluation
[2024-04-04 18:13] VITALS: BP 133/90; PULSE 86; RESP 16; TEMP 36.7; O2SAT 99; BMI 37.4
[2024-04-04 18:15] VITALS: BP 133/90; PULSE 80; O2SAT 97
--- NOTE | 2024-04-04 18:21 | CT_ITS ---
PROCEDURE INFORMATION: Exam: CT Abdomen And Pelvis With Contrast Exam date and time: 04/04/2024 7:46 PM Age: 49 years old Clinical indication: Abdominal pain; Additional info: Upper abd pain/n/v x 2 days TECHNIQUE: Imaging protocol: Computed tomography of the abdomen and pelvis with contrast. Radiation optimization: All CT scans at this facility use at least one of these dose optimization techniques: automated exposure control; mA and/or kV adjustment per patient size (includes targeted exams where dose is matched to clinical indication); or iterative reconstruction. Contrast material: ISOVUE; Contrast volume: 75 ml; Contrast route: IV; COMPARISON: CT ABDOMEN PELVIS W CON 03/04/2024 10:08 AM FINDINGS: Lungs: Mild atelectasis. Liver: Hepatomegaly. No mass. Gallbladder and biliary ducts: Cholecystectomy. Pancreas: Normal. No ductal dilation. Spleen: Small calcified granulomas. No splenomegaly. Adrenal glands: Normal. No mass. Kidneys and ureters: Bilateral nonobstructing nephrolith measuring up to 6 mm. No hydronephrosis. Stable areas of cortical scarring. Stomach and bowel: Nondistended gas and fluid-filled loops of small bowel and colon. No obstruction. No mucosal thickening. Appendix: No evidence of appendicitis. Intraperitoneal space: Small amount of free fluid within the pelvis. No free air. No significant fluid collection. Vasculature: Atherosclerosis. No abdominal aortic aneurysm. Lymph nodes: Unremarkable. No enlarged lymph nodes. Urinary bladder: Unremarkable as visualized. Reproductive: Hysterectomy. Bones/joints: Degenerative changes. No acute fracture. Soft tissues: Unremarkable. IMPRESSION: 1. Bilateral nonobstructing nephrolithiasis. 2. Nondistended gas and fluid-filled loops of small bowel and colon, findings which may be seen with a diarrheal state/infectious enterocolitis. 3. Small amount of free fluid within the pelvis.
--- NOTE | 2024-04-04 18:25 | ED_ITS ---
Discharge Plan Disposition Patient Disposition: Home, Self-Care Condition: Good Prescriptions Prescriptions: New dicyclomine 20 mg tablet 20 mg PO QID PRN (Reason: abdominal pain) Qty: 20 0RF pantoprazole 40 mg tablet,delayed release (DR/EC) 40 mg PO DAILY Qty: 30 0RF ondansetron 4 mg tablet,disintegrating 4 mg PO Q8H PRN (Reason: nausea and vomiting) 4 Days Qty: 12 0RF No Action celecoxib 200 mg capsule 200 mg PO DAILY Patient Comments: TAKE ONE CAPSULE BY MOUTH EVERY DAY hydroxyzine pamoate 50 mg capsule 50 mg PO DAILY Patient Comments: TAKE 1 TO 2 CAPSULE(S) BY MOUTH EVERY EVENING NEEDED FOR SLEEP valsartan-hydrochlorothiazide 160-25 mg tablet 1 tab PO DAILY carvedilol 6.25 mg tablet 6.25 mg PO BID Patient Comments: TAKE ONE TABLET BY MOUTH TWICE DAILY Referrals Follow up/Referrals: David Garcia MD [Primary Care Provider] - See instructions Activity Restrictions/Add. Instructions Additional Instructions/Restrictions: You were evaluated in the emergency department today. Please slat pickler your prescriptions at the pharmacy and take them as needed for symptoms. You may also take Tylenol every 4-6 hours at home as needed for pain. Return to the emergency department for new or worsening symptoms. Follow-up closely with your primary care provider for reassessment over the next 3 days. Clinical Impressions Clinical Impression: Gastroenteritis Stand Alone Forms Stand Alone Forms: Work/School Release Instructions Patient Instructions: DI for Viral Gastroenteritis -- Adult, DI for Acute Abdominal Pain, DI for Bacterial Gastroenteritis -- Adult Print Language Print Language: Icelandic Discharge ED Provider: Briana Simmons General Adult HPI General Chief complaint: Abdominal Pain Stated complaint: abd pain, V/D Time Seen by Provider: 04/04/24 17:44 Mode of Arrival: Ambulatory Source of Information: Patient Limitations: No Limitations Description of Symptoms (Recalled from ER Triage Doc. by RN): abdominal pain ongoing for 2 days History of Present Illness HPI narrative: This patient is a 49-year-old female with a history of obesity, migraines, recurrent ureterolithiasis status post lithotripsy and stenting with stent removal at the end of March in [facility], prior cholecystectomy, prior appendectomy, prior hysterectomy presented to the emergency department for evaluation with concern for upper abdominal pain, nausea, vomiting, and diarrhea. Patient has that has been going on for 2 days. She states that it first started out as upper abdominal pain that was intermittent, which she thought may be gas pain. She states that it hit her like contractions and will resolve spontaneously. She then developed nausea, vomiting, and mild diarrhea. Nonbloody nonbilious in nature. No fevers, urinary symptoms, or other concerns noted. She is still passing gas. Related Data Home Medications ?Medication ?Instructions ?Recorded ?Confirmed celecoxib 200 mg capsule 200 mg PO DAILY 03/02/24 04/04/24 hydroxyzine pamoate 50 mg capsule 50 mg PO DAILY 03/02/24 04/04/24 valsartan 160 1 tab PO DAILY 03/02/24 04/04/24 mg-hydrochlorothiazide 25 mg tablet carvedilol 6.25 mg tablet 6.25 mg PO BID 04/04/24 04/04/24 Previous Rx's ?Medication ?Instructions ?Recorded dicyclomine 20 mg tablet 20 mg PO QID PRN abdominal pain 04/04/24 #20 tabs ondansetron 4 mg disintegrating 4 mg PO Q8H PRN nausea and 04/04/24 tablet vomiting 4 days #12 tabs pantoprazole 40 mg tablet,delayed 40 mg PO DAILY #30 tabs 04/04/24 release Allergies Allergy/AdvReac Type Severity Reaction Status Date / Time amlodipine Allergy Intermediate swelling Verified 03/04/24 09:33 legs and feet Penicillins (PENICILLINS) Allergy Intermediate I-RASH Verified 03/04/24 09:33 metoclopramide (From REGLAN) Allergy Mild NA-HALLUCIN Verified 03/04/24 09:33 ATIONS amoxicillin Allergy Unknown Verified 03/04/24 09:33 allergy reaction ibuprofen Allergy Nausea Verified 03/04/24 09:33 [facility] Disclaimer: The information contained in this section may have been updated after the patient was seen, as this information can be updated by other users. Medical History Witnessed apneic spells Daytime somnolence Snoring Dyspnea Facet arthropathy, lumbar Foot pain Carotid artery disease CKD (chronic kidney disease) stage 2, GFR 60-89 ml/min Lumbar radiculopathy Radiculopathy due to lumbar intervertebral disc disorder Chest pain Swelling SOB (shortness of breath) Other forms of angina pectoris Malignant essential hypertension Migraine Surgical History History of lithotripsy History of appendectomy History of tonsillectomy History of hysterectomy History of cholecystectomy Family History Other Family history of diabetes mellitus type II Family history of stroke Social History Smoking Status: Former smoker second hand exposure: Yes alcohol intake: never substance use type: denies use current occupational status: unemployed Travel in the last 8 weeks: None household members: family housing: house number of children: 4 current occupational exposures/hazards: No caffeine: Yes Other Medical History Have you received the Flu Vaccine for this season: Yes Have you received the Pneumonia Vaccine: No ROS Obtained: Yes All systems reviewed & no additional complaints except as documented Physical Exam General General appearance: alert and in no apparent distress Head Head exam: atraumatic and normocephalic Eye Eye exam: Present normal appearance, PERRL and EOMI ENT ENT exam: Present normal exam, normal oropharynx, mucous membranes moist and normal external ear exam Neck Neck exam: Present normal inspection, full ROM and trachea midline; Absent tenderness Chest Chest inspection: Present normal inspection and symmetric chest wall rise; Absent tenderness Respiratory Respiratory exam: Present normal lung sounds bilaterally; Absent respiratory distress, wheezes, stridor or accessory muscle use Cardiovascular Cardiovascular exam: Present regular rate and normal rhythm Abdominal Exam Abdominal exam: Present soft and tenderness (Epigastric); Absent distention, guarding, rebound or rigidity Extremities Exam Extremities exam: Present normal inspection, full ROM and normal capillary refill; Absent tenderness or edema Back Exam Back exam: Present normal inspection and full ROM; Absent tenderness Neurological Exam Neurological exam: Present alert, oriented X3, CN II-XII intact and normal gait; Absent motor sensory deficit Psychiatric Psychiatric exam: Present normal affect and normal mood Skin Skin exam: Present warm and dry Medical Decision Making Medical Records Medical records reviewed: Yes I reviewed the patient's medical records. Screening: Per USPSTF and CDC recommendations, given the prevalence of disease in our region, it is our hospital?s policy to screen for HIV and viral Hepatitis for all patients aged 18 and over and those with ongoing risk factors. Mark Inquiry Pt receiving controlled substance: No Vital Signs: 04/04/24 17:25 04/04/24 18:13 04/04/24 18:15 Temperature 98.2 F 98.0 F Temperature Source Oral Oral Pulse Rate 80 Pulse Rate [Right Brachial] 94 H 86 Respiratory Rate 20 16 Blood Pressure 133/90 Blood Pressure [Right Arm] 125/92 H 133/90 Blood Pressure Mean [Right Arm] 103 104 Blood Pressure Source Blood Pressure Source [Right Arm] Automatic Cuff Blood Pressure Position Blood Pressure Position [Right Arm] Sitting 02 Sat by Pulse Oximetry 98 99 97 Oxygen Delivery Method Room Air Room Air 04/04/24 18:32 04/04/24 21:26 Temperature 98.4 F Temperature Source Oral Pulse Rate 76 71 Pulse Rate [Right Brachial] Respiratory Rate 16 Blood Pressure 129/81 122/82 Blood Pressure [Right Arm] Blood Pressure Mean [Right Arm] Blood Pressure Source Automatic Cuff Blood Pressure Source [Right Arm] Blood Pressure Position Sitting Blood Pressure Position [Right Arm] 02 Sat by Pulse Oximetry 96 Oxygen Delivery Method Room Air Room Air Lab Data Lab results reviewed: Yes I reviewed the patient's lab results. Lab Results 04/04/24 17:56: Urine Color Yellow, Urine Appearance Clear, Urine pH 6.0, Ur Specific [place] >= 1.030, Urine Protein Negative, Urine Glucose (UA) Negative, Urine Ketones Negative, Urine Blood Negative, Urine Nitrate Negative, Urine Bilirubin 1+ A, Urine Urobilinogen 0.2, Ur Leukocyte Esterase Trace, Urine RBC 5-10, Urine WBC 10-20, Ur Squamous Epith Cells 10-20, Urine Bacteria 3+ 04/04/24 18:30: WBC 9.5, RBC 4.16 L, Hgb 12.5, Hct 36.9 L, MCV 88.6, MCH 30.1, MCHC 33.9, RDW 13.1, Plt Count 337, MPV 7.3 L, Neut % (Auto) 51.7, Lymph % (Auto) 39.7, Coffey % (Auto) 5.1, Eos % (Auto) 2.8, Baso % (Auto) 0.7, Neut # (Auto) 4.9, Lymph # (Auto) 3.8, Coffey # (Auto) 0.5, Eos # (Auto) 0.3, Baso # (Auto) 0.1, Sodium 140, Potassium 3.8, Chloride 107, Carbon Dioxide 27, Anion Gap 9.8, BUN 17, Creatinine 0.90, Estimated Creat Clear 128, Estimated GFR 67, Est GFR ( Amer) 81, Glucose 87, Lactate 0.8, Calcium 8.9, Total Bilirubin 1.4 H, AST 35, ALT 22, Alkaline Phosphatase 82, Troponin I < 0.01, Total Protein 7.4, Albumin 4.3, Globulin 3.1, Albumin/Globulin Ratio 1.4, Lipase 112 04/04/24 18:30 04/04/24 18:30 Orders (Tests/Meds): ED MEDICATIONS Discontinued Medications Generic Name Dose Route Start Last Admin Trade Name Freq PRN Reason Stop Dose Admin Acetaminophen 1,000 mg 04/04/24 18:22 04/04/24 18:38 Acetaminophen 500mg Tab PO 04/04/24 18:23 1,000 mg ONCE ONE Administration Dicyclomine HCl 20 mg 04/04/24 20:28 04/04/24 20:44 Dicyclomine 10mg Capsule PO 04/04/24 20:29 20 mg ONCE ONE Administration Famotidine 40 mg 04/04/24 20:28 04/04/24 20:44 Famotidine 20mg Tablet PO 04/04/24 20:29 40 mg ONCE ONE Administration Iopamidol 75 ml 04/04/24 19:48 04/04/24 19:49 Iopamidol-370 (76%);100ml Bottle IV 04/04/24 19:49 75 ml ONCE ONE Administration Ketorolac Tromethamine 15 mg 04/04/24 18:22 04/04/24 18:38 Ketorolac 30mg/Ml Vial IV 04/04/24 18:23 15 mg ONCE ONE Administration Ondansetron HCl 4 mg 04/04/24 18:21 04/04/24 18:38 Ondansetron 4mg/2ml Vial IV 04/04/24 18:22 4 mg ONCE ONE Administration Oxycodone HCl 5 mg 04/04/24 21:31 04/04/24 21:38 Oxycodone 5mg Immediate Release Tablet PO 04/04/24 21:32 5 mg ONCE ONE Administration Pantoprazole Sodium 40 mg 04/04/24 18:21 04/04/24 18:38 Pantoprazole 40mg Vial IV 04/04/24 18:22 40 mg ONCE ONE Administration Sodium Chloride 10 ml 04/04/24 18:21 Sodium Chloride 0.9% 10ml Vial IV 05/04/24 18:20 NEEDED PRN dilute protonix Sodium Chloride 10 ml 04/04/24 19:48 04/04/24 19:49 Sodium Chloride 0.9% 10ml Syr (Rad Only) IV 04/04/24 19:49 10 ml ONCE ONE Administration ORDERS Category Date Time Status CT abdomen pelvis w con Stat Cat Scan 04/04/24 18:21 Completed Complete Blood Count Auto Diff Stat Lab 04/04/24 18:30 Completed Comprehensive Metabolic Panel Stat Lab 04/04/24 18:30 Completed Lactic Acid Stat Lab 04/04/24 18:30 Completed Lipase Stat Lab 04/04/24 18:30 Completed Trop I [Troponin I] Stat Lab 04/04/24 18:30 Completed Troponin I Q3H Lab 04/04/24 21:30 Ordered UA [Urinalysis and Microscopic] Stat Lab 04/04/24 17:56 Completed Urine Culture Stat Micro 04/04/24 17:56 Received ECG Data Tracing #1: I reviewed this ECG and interpreted as documented below: Normal sinus rhythm with a ventricular rate of [address] changes concerning for ischemia. Normal intervals. ECG initial impression date: 04/04/24 ECG initial impression time: 18:32 Medical Decision Narrative: In summary, this patient is a 49-year-old female presenting to the Emergency Department for evaluation of abdominal pain, nausea, vomiting, and diarrhea. Differential diagnoses considered include but are not limited to gastroenteritis, colitis, pancreatitis, peptic ulcer disease, bowel obstruction, ACS. Ruling out the most morbid conditions drove assessment. It should be noted patient's history includes obesity which is not at goal therapy. This complicates all aspects of care by increasing patient's risk for morbidity. I reviewed patient's past medical records and noted previous evaluation in the emergency department for kidney stone, for which the patient was referred to [facility] where she had stenting and lithotripsy with stent removal towards the end of March. On exam, the patient is sitting upright in no acute distress. She has epigastric tenderness but no rebound or guarding. Abdomen is nonrigid. EKG obtained is reassuring. workup included a CMP, lipase, lactic acid, troponin, CT abdomen pelvis with IV contrast. Patient was given IV Toradol, Zofran, pantoprazole, and oral Tylenol for symptomatic improvement. I independently interpreted CT scan prior to the radiologist read and noted some fluid-filled loops of bowel but no obvious obstructive process. Please see their read for final interpretation. They note concerns for nonspecific gastroenteritis. Labs were obtained that demonstrated reassuring CBC with no significant leukocytosis, reassuring chemistry with no CHRISTOPHER or significant electrolyte derangements. Bilirubin is very mildly elevated at 1.4 which is nonspecific, liver enzymes normal. Urine is not concerning overtly for infection, though is grossly contaminated with squamous cells. Urine culture was sent and is pending. Patient denies specific urinary symptoms. On reassessment, patient had good improvement after administration of interventions above. She does still have some abdominal pain and cramping, for which 1 dose of oral oxycodone was administered. She was also given oral Bentyl. After this, patient was able to tolerate oral intake without significant issue and states she is feeling overall better. Given this, I feel that she is appropriate for discharge home with prescriptions for Zofran, pantoprazole, Bentyl to treat gastroenteritis and instructions for close follow- up with her primary care provider. Strict return precautions were given and she was discharged after all questions were answered. Critical Care Critical Care Time Critical Care Time: No
[2024-04-04 18:26] LABS: Microscopic, Urine URINE MICROSCOPIC (MICROSCOPIC)
--- NOTE | 2024-04-04 18:30 | ECG_ITS ---
APPROVED REPORT Exam: Resting ECG HR:77 bpm ECG Measurements Heart Rate 77 AXES FL 155 P 15 QRSd 100 QRS -8 QT 410 T 10 QTc 441 Conclusion SINUS RHYTHM MODERATE VOLTAGE CRITERIA FOR LVH, CONSIDER NORMAL VARIANT [MEETS CRITERIA IN ONE OF: R(aVL), S(V1), R(V5), R(V5/V6)+S(V1)] BORDERLINE ECG Electronically signed by : NOELLE VALDES, 04/04/2024 20:21:44
[2024-04-04 18:32] VITALS: BP 129/81; PULSE 76; O2SAT 96
[2024-04-04 18:32] LABS: Appearance,Urine CLEAR (Clear); Blood, Urine Negative (Negative); Color,Urine YELLOW (Yellow); Glucose,Urine (UA) Negative (Negative); Ketones,Urine Negative (Negative); Leukocyte Esterase,Urine TRACE (Negative); Nitrate,Urine Negative (Negative); Protein,Urine Negative (Negative); Specific Gravity, Urine >= 1.030 (1.005-1.030); Urobilinogen,Urine 0.2 EU/dl (0.2)
[2024-04-04] MEDS: KETOROLAC 30MG/ML VIAL 15 MG IV (18:38)
[2024-04-04] MEDS: PANTOPRAZOLE 40MG VIAL 40 MG IV (18:38)
[2024-04-04] MEDS: ACETAMINOPHEN 500MG TAB 1000 MG PO (18:38)
[2024-04-04] MEDS: ONDANSETRON 4MG/2ML VIAL 4 MG IV (18:38)
[2024-04-04 18:41] LABS: Basophils # 0.1 K/mm3 (0-0.2); Basophils % 0.7 % (0.1-2.0); Eosinophils # 0.3 K/mm3 (0.0-0.4); Eosinophils % 2.8 % (0.1-12.0); Hematocrit 36.9 % (37.0-47.0); Hemoglobin 12.5 g/dL (12.2-16.2); Lymphocytes # 3.8 K/mm3 (0.7-4.5); Lymphocytes % 39.7 % (10-50); Mean Corpuscular HGB Conc 33.9 g/dL (31.8-35.4); Mean Corpuscular Hemoglobin 30.1 pg (27.0-31.2); Mean Corpuscular Volume 88.6 fl (81-99); Mean Platelet Volume 7.3 fl (7.4-10.4); Monocytes # 0.5 K/mm3 (0.1-1.0); Monocytes % 5.1 % (1.7-9.3); Neutrophils # 4.9 K/mm3 (1.8-7.8); Neutrophils % 51.7 % (37.0-80.0); Platelet Count 337 K/mm3 (142-424); Red Blood Count 4.16 M/mm3 (4.20-5.40); Red Cell Distribution Width 13.1 % (11.5-17.5); White Blood Count 9.5 K/mm3 (4.8-10.8)
[2024-04-04 18:41] LABS: Bilirubin,Urine 1+ (Negative)
[2024-04-04 18:44] LABS: Bacteria,Urine 3+ /lpf
[2024-04-04 18:45] LABS: Albumin Level 4.3 g/dl (3.5-5.0); Chloride 107 mmol/L (98-107); Potassium 3.8 mmoL/L (3.5-5.1); Sodium 140 mmol/L (136-145)
[2024-04-04 18:48] LABS: Alanine Aminotransferase 22 U/L (12-78); Albumin/Globulin Ratio 1.4 (1.1-1.8); Alkaline Phosphatase 82 U/L (38-126); Anion Gap 9.8 mEq/L (5-15); Aspartate Amino Transferase 35 U/L (14-36); Bilirubin,Total 1.4 mg/dl (0.2-1.3); Blood Urea Nitrogen 17 mg/dl (7-17); Carbon Dioxide 27 mmol/L (22.0-30.0); Creatinine Clearance Estimated 128 mL/min (50-200); Estimated Glomerular Filt Rate 67 ml/min (>60); GFR (African American) 81 ML/MIN (>60); Globulin 3.1 g/dL (1.3-3.2); Lipase 112 U/L (23-300); Total Protein,Serum 7.4 g/dl (6.3-8.2)
[2024-04-04 18:49] LABS: Calcium 8.9 mg/dl (8.4-10.2); Glucose 87 mg/dl (74-100)
[2024-04-04 18:50] LABS: Lactic Acid 0.8 mmol/L (0.7-2.1)
[2024-04-04 19:21] LABS: Troponin I < 0.01 ng/ml (0.00-0.034)
--- NOTE | 2024-04-04 19:35 | PC.NURSE ---
rounded on pt, pt voices no needs. Call light in reach
[2024-04-04] MEDS: SODIUM CHLORIDE 0.9% 10ML SYR (RAD ONLY) 10 ML IV (19:49)
[2024-04-04] MEDS: IOPAMIDOL-370 (76%);100ML BOTTLE 75 ML IV (19:49)
[2024-04-04] MEDS: FAMOTIDINE 20MG TABLET 40 MG PO (20:44)
[2024-04-04] MEDS: DICYCLOMINE 10MG CAPSULE 20 MG PO (20:44)
[2024-04-04 21:26] VITALS: BP 122/82; PULSE 71; RESP 16; TEMP 36.9; O2SAT 98
[2024-04-04] MEDS: OXYCODONE 5MG IMMEDIATE RELEASE TABLET 5 MG PO (21:38)
== END 2024-04-04 21:39 | disposition home or self-care (01) ==
LOC: UTC 17:52 → ER 18:05
PROVIDERS: Nurse Practitioner; Emergency Provider Emergency Medicine; PCP Internal Medicine Adolescent Medicine
DX: K52.9 Noninfective gastroenteritis and colitis, unspecified (principal); R10.10 Upper abdominal pain, unspecified; R11.2 Nausea with vomiting, unspecified
CPT/HCPCS: 74177; 80053; 81001; 83605; 83690; 84484; 85025; 87086; 93005; 96374; 96375; 99285; J1885; J2405; Q9967

== ENCOUNTER 2024-05-02 15:23 | Emergency (ER) | payer OTHER, SELFPAY ==
[2024-05-02 16:20] VITALS: BP 149/94; PULSE 89; RESP 18; TEMP 37; O2SAT 99; BMI 36.4
--- NOTE | 2024-05-02 16:42 | EXP.UTC ---
Discharge Plan Disposition Patient Disposition: Home, Self-Care Condition: Good Prescriptions Prescriptions: No Action hydroxyzine pamoate 50 mg capsule 50 mg PO DAILY Patient Comments: TAKE 1 TO 2 CAPSULE(S) BY MOUTH EVERY EVENING NEEDED FOR SLEEP valsartan-hydrochlorothiazide 160-25 mg tablet 1 tab PO DAILY carvedilol 6.25 mg tablet 6.25 mg PO BID Patient Comments: TAKE ONE TABLET BY MOUTH TWICE DAILY pantoprazole 40 mg tablet,delayed release (DR/EC) 40 mg PO DAILY Qty: 30 0RF sertraline 50 mg tablet 50 mg PO AM Patient Comments: TAKE ONE TABLET BY MOUTH EVERY MORNING Referrals Follow up/Referrals: David Garcia MD [Primary Care Provider] - See instructions Activity Restrictions/Add. Instructions Additional Instructions/Restrictions: *Monitor Temp, Over the counter Motrin or Tylenol as directed/as needed Tylenol every 4 hours and Motrin every 6 hours (as long as your family doctor has told you that you can take it) for fever or pain. and straight to ER if unable to lower temp less than 101.0 after medication given *Warm salt water gargles may help to soothe the throat *Throat Lozenges? *Warm fluids like tea with honey may help to soothe the throat? *Sleep elevated *Humidifier/Vaporizer *Your throat swab was sent for culture. Those results are typically sent to your primary care. Be sure to follow up in 2-3 days with your family doctor/primary care physician if no improvement so they can review those result and treat if necessary. If you don?t have a primary care doctor, I recommend you get one but in the mean time, you will have to return to a walk in clinic Follow up IMMEDIATELY for new or worsening symptoms or no Noticeable improvement over the next 48-72 hours. 911 for difficulty breathing or swallowing You were tested for today for Rapid COVID19 and Influenza A & B, your test result should be back later today and will be available for viewing on your [facility] Clinical Impressions Clinical Impression: Viral upper respiratory infection Stand Alone Forms Stand Alone Forms: Work/School Release Instructions Patient Instructions: DI for Viral Upper Respiratory Infection -- Adult Print Language Print Language: Estonian Discharge ED Provider: Kenzie Damon [facility] HPI General Stated complaint: cough, sore throat fever Mode of Arrival: Ambulatory Source of Information: Patient Limitations: No Limitations Time Seen by Provider: 05/02/24 16:42 Description of Symptoms (Recalled from Triage Doc. by RN): PATIENT C/O COUGH, SORE THROAT, EAR PAIN, VOMITING, FEVER AND CHILLS THAT STARTED THURSDAY HEENT Symptoms (Recalled from RN notes): Yes Resp Symptoms (Recalled from RN notes): Yes Skin Symptoms (Recalled from RN notes): No MS Symptoms (Recalled from RN notes): No Functional Status (Recalled from RN notes): WNL History of Present Illness Provider Complaint: Patient states that she started feeling bad on Thursday with body aches, chills, nasal congestion and sore throat and vomited over the weekend states that today she didnt feel like going to work today so she called in wanting to get checked Related Data Home Medications ?Medication ?Instructions ?Recorded ?Confirmed hydroxyzine pamoate 50 mg capsule 50 mg PO DAILY 03/02/24 05/02/24 valsartan 160 1 tab PO DAILY 03/02/24 05/02/24 mg-hydrochlorothiazide 25 mg tablet carvedilol 6.25 mg tablet 6.25 mg PO BID 04/04/24 05/02/24 sertraline 50 mg tablet 50 mg PO AM 05/02/24 05/02/24 Previous Rx's ?Medication ?Instructions ?Recorded pantoprazole 40 mg tablet,delayed 40 mg PO DAILY #30 tabs 04/04/24 release Allergies Allergy/AdvReac Type Severity Reaction Status Date / Time amlodipine Allergy Intermediate swelling Verified 03/04/24 09:33 legs and feet Penicillins (PENICILLINS) Allergy Intermediate I-RASH Verified 03/04/24 09:33 metoclopramide (From REGLAN) Allergy Mild NA-HALLUCIN Verified 03/04/24 09:33 ATIONS amoxicillin Allergy Unknown Verified 03/04/24 09:33 allergy reaction ibuprofen Allergy Nausea Verified 03/04/24 09:33 Worker's Comp Is this a Worker's Comp case?: No [facility] Disclaimer: The information contained in this section may have been updated after the patient was seen, as this information can be updated by other users. Medical History Witnessed apneic spells Daytime somnolence Snoring Dyspnea Facet arthropathy, lumbar Foot pain Carotid artery disease CKD (chronic kidney disease) stage 2, GFR 60-89 ml/min Lumbar radiculopathy Radiculopathy due to lumbar intervertebral disc disorder Chest pain Swelling SOB (shortness of breath) Other forms of angina pectoris Malignant essential hypertension Migraine Surgical History History of lithotripsy History of appendectomy History of tonsillectomy History of hysterectomy History of cholecystectomy Family History Other Family history of diabetes mellitus type II Family history of stroke Social History Smoking Status: Former smoker second hand exposure: Yes alcohol intake: never substance use type: denies use current occupational status: unemployed Travel in the last 8 weeks: None household members: family housing: house number of children: 4 current occupational exposures/hazards: No caffeine: Yes Have you lived/traveled outside US in past 30 days?: No Contact w/someone who lives/traveled outside US past 30 days?: No Exposure to someone with infectious disease in past 14 days?: No Do you have a fever (greater than 100.4 F or 38 C)?: Yes Have you tested positive for COVID-19: No Exposed to someone with COVID-19 in past 14 days?: No Do you have a sore throat?: Yes Do you have a cough?: Yes Do you have any weakness?: No Do you have any diarrhea?: No Are you experiencing any unusual bleeding?: No Do you have any muscle aches/pain?: No Do you have any abdominal pain?: No Are you experiencing loss of taste or smell?: No ROS Obtained: Yes All systems reviewed & no additional complaints except as documented and Yes Systems reviewed as appropriate & no additional complaints except as documented Constitutional Constitutional: Reports system reviewed and no additional complaints, except as documented, Reports as per HPI, Reports body ache and Reports chills ENT Ears, Nose, Mouth, and Throat: Reports system reviewed and no additional complaints, except as documented, Reports as per HPI, Reports nasal congestion, Reports nasal discharge and Reports sore throat Cardiovascular Cardiovascular: Reports system reviewed and no additional complaints, except as documented and Reports as per HPI Respiratory Respiratory: Reports system reviewed and no additional complaints, except as documented and Reports as per HPI Gastrointestinal Gastrointestingal: Reports system reviewed and no additional complaints, except as documented, as per HPI and vomiting Physical Exam General General appearance: alert and in no apparent distress ENT ENT exam: Present mucous membranes moist Expanded ENT Exam Nose exam: Absent sinus tenderness Throat exam: Present normal inspection Respiratory Respiratory exam: Present normal lung sounds bilaterally; Absent respiratory distress or wheezes Cardiovascular Cardiovascular exam: Present regular rate, normal rhythm and normal heart sounds Abdominal Exam Abdominal exam: Present soft and normal bowel sounds; Absent distention or tenderness Neurological Exam Neurological exam: Present alert, oriented X3 and normal gait Medical Decision Making Medical Records Screening: Per USPSTF and CDC recommendations, given the prevalence of disease in our region, it is our hospital?s policy to screen for HIV and viral Hepatitis for all patients aged 18 and over and those with ongoing risk factors. Mark Inquiry Pt receiving controlled substance: No Mark was queried for this patient: No Vital Signs: 05/02/24 16:20 Temperature 98.6 F Temperature Source Oral Pulse Rate [Left Brachial] 89 Respiratory Rate 18 Blood Pressure [Left Arm] 149/94 H Blood Pressure Mean [Left Arm] 112 Blood Pressure Source [Left Arm] Automatic Cuff Blood Pressure Position [Left Arm] Sitting 02 Sat by Pulse Oximetry 99 Oxygen Delivery Method Room Air Lab Data Lab results reviewed: Yes I reviewed the patient's lab results.
[2024-05-02 17:01] LABS: UTC Influenza A Antigen Negative (Negative); UTC Influenza B Antigen Negative (Negative)
[2024-05-02 17:02] LABS: UTC Strep Screen (Rapid) Negative (Negative)
[2024-05-02 17:05] VITALS: BP 149/94; PULSE 89; RESP 18; TEMP 37; O2SAT 99
[2024-05-02 17:10] LABS: Coronavirus 19, PCR Not Detected (NotDetected); Human Rhinovirus Not Detected (NotDetected); Influenza A, PCR Not Detected (NotDetected); Influenza B, PCR Not Detected (NotDetected); Respiratory Syncytial Virus Not Detected (NotDetected)
== END 2024-05-02 17:07 | disposition home or self-care (01) ==
PROVIDERS: Emergency Provider Nurse Practitioner; PCP Internal Medicine Adolescent Medicine
DX: J06.9 Acute upper respiratory infection, unspecified (principal); R50.9 Fever, unspecified; R05.9 Cough, unspecified; J02.9 Acute pharyngitis, unspecified; R11.10 Vomiting, unspecified; M79.10 Myalgia, unspecified site; R09.81 Nasal congestion
CPT/HCPCS: 87631; 87804; 87880; 99212; G0381

== ENCOUNTER 2024-07-05 07:08 | Day surgery (SDC) | payer OTHER, SELFPAY ==
[2024-07-04 08:40] VITALS: BMI 36.4
[2024-07-05] MEDS: LACTATED RINGERS 1000ML 1,000 ML 50 ML IV (07:26)
[2024-07-05 07:29] VITALS: BP 155/91; PULSE 91; RESP 18; TEMP 36.1; O2SAT 98
--- NOTE | 2024-07-05 07:33 | EXP.ANES.CKL ---
[facility] Disclaimer: The information contained in this section may have been updated after the patient was seen, as this information can be updated by other users. Medical History Witnessed apneic spells Daytime somnolence Snoring Dyspnea Facet arthropathy, lumbar Foot pain Carotid artery disease CKD (chronic kidney disease) stage 2, GFR 60-89 ml/min Lumbar radiculopathy Radiculopathy due to lumbar intervertebral disc disorder Chest pain Swelling SOB (shortness of breath) Other forms of angina pectoris Malignant essential hypertension Migraine Surgical History History of lithotripsy History of appendectomy History of tonsillectomy History of hysterectomy History of cholecystectomy Family History Other Family history of diabetes mellitus type II Family history of stroke Social History Smoking Status: Former smoker second hand exposure: Yes alcohol intake: never substance use type: denies use current occupational status: unemployed Travel in the last 8 weeks: None household members: family housing: house number of children: 4 current occupational exposures/hazards: No caffeine: Yes Have you lived/traveled outside US in past 30 days?: No Contact w/someone who lives/traveled outside US past 30 days?: No Exposure to someone with infectious disease in past 14 days?: No Do you have a fever (greater than 100.4 F or 38 C)?: No Have you tested positive for COVID-19: No Exposed to someone with COVID-19 in past 14 days?: No Do you have a sore throat?: No Do you have a cough?: No Do you have any weakness?: No Do you have any diarrhea?: No Are you experiencing any unusual bleeding?: No Do you have any muscle aches/pain?: No Do you have any abdominal pain?: No Are you experiencing loss of taste or smell?: No [facility] Anesthesia Checklist Patient Identification Patient Identification: Arm Band and Verbal (Name & ) Structural Data Admitted From: Home Planned Operative Procedure/s: Colonoscopy Consent for Planned Operative Procedure(s) Verified: Yes Verified Documents: Surgical Consent and History and Physical NPO Status Verified Time NPO: 22:18 Chart Verification Results Verified: CBC, BMP, ECG and Chest Xray Additional verifications Patient : No Anesthesia Reactions: No Hx Blood Transfusions: No Blood Transfusion Reaction: No Cardiovascular Assessment Heart Sounds: S1 & S2 Pulse Rhythm: Irregular Peripheral Edema: No Airway Assessment Mallampati Score:: Class III C-Spine Mobility Assessed: Yes (FROM demonstrated) TMJ Mobility Assessed: Yes Dentition: Good Dentition (Nothing loose per pt.) Neurological Assessment Level of Consciousness: Awake, Alert, Appropriate and Follows Commands Hx Seizures: No Numbness or tingling in extremities: No Anesthesia Plan Anesthesia Risk discussed: Yes Anesthesia Plan: Verified ASA Class: III Anesthesia Type: MAC
[2024-07-05 07:49] LABS: Urine Pregnancy, HCG Qual. Negative (Negative)
[2024-07-05 07:57] VITALS: O2SAT 99
[2024-07-05 08:34] VITALS: BP 102/61; PULSE 85; RESP 18; TEMP 36.5; O2SAT 93
--- NOTE | 2024-07-05 08:37 | P.PCN_ITS ---
Procedure: Date: 07/05/24 Patient Date of :: 1975 Procedure Performed:: Colonoscopy Indications:: Screening Performing Provider:: Rolando Lucero MD Referring Provider:: . Sedation:: Monitored anesthesia care Procedure:: After informed consent was obtained the patient was taken to the endoscopy suite. Sedation ensued after the patient was transferred to the left lateral decubitus position. Pulse, blood pressure, and oxygen saturation were monitored throughout the procedure. Digital rectal exam revealed no significant abnormality. The colonoscope was placed in position. The entire colon was eval uated. The colonoscope was carefully removed and the patient was transferred to recovery in stable condition. Please see findings and specimens below for detail. Findings:: Bowel preparation moderate to poor [somewhat improved with large-volume irrigation/suctioning] Mild hemorrhoidal cushions Mild scattered sigmoid diverticulosis Specimens:: None Recommendations:: Repeat colonoscopy in 2-3 years with extended/alternate bowel preparation. Complications:: No immediate with the exception of moderate to poor bowel preparation Estimated blood obtained (mL): 0 Colonoscopy Component Colonoscopy Component Was a colonoscopy performed during today's procedure?: Yes Recommended follow up colonoscopy of at least 10 years?: No If no, follow up colonoscopy recommended in ___ years?: (See above) Reason for not recommending >/= 10 yr follow-up interval?: (See above)
[2024-07-05 08:44] VITALS: BP 110/64; PULSE 72; RESP 18; O2SAT 94
[2024-07-05 08:54] VITALS: BP 106/74; PULSE 67; RESP 18; O2SAT 94
[2024-07-05 09:04] VITALS: BP 115/82; PULSE 80; RESP 18; O2SAT 97
== END 2024-07-05 09:08 | disposition home or self-care (01) ==
PROVIDERS: PCP Internal Medicine Adolescent Medicine; Visit Provider Surgery
PROC: 0DJD8ZZ Inspection of Lower Intestinal Tract, Via Natural or Artificial Opening Endoscopic (ICD-10-PCS; CPT 45378; principal; 2024-07-05 08:30)
DX: K64.8 Other hemorrhoids (principal); K57.30 Diverticulosis of large intestine without perforation or abscess without bleeding; Z12.11 Encounter for screening for malignant neoplasm of colon
CPT/HCPCS: 45378; 81025; J2704; J7120

== ENCOUNTER 2024-07-06 12:20 | Outpatient (CLI) | payer OTHER, SELFPAY ==
[2024-07-06 12:27] LABS: Anti-Ro (SS-A) Ab (RDL) ND
--- NOTE | 2024-07-06 12:34 | XR_ITS ---
FINAL REPORT CLINICAL HISTORY: pain COMPARISON: None FINDINGS: RIGHT HIP: 3 images of the right hip were obtained. There is no evidence of fracture or dislocation. Mild degenerative changes present. There is no soft tissue abnormality identified. IMPRESSION: Mild degenerative change without acute bony abnormality. Reviewed, Interpreted and Dictated by Eve Hernandes MD Transcribed by Kimberly Pinedo Authenticated and [facility]
--- NOTE | 2024-07-06 12:34 | XR_ITS ---
FINAL REPORT CLINICAL HISTORY: pain COMPARISON: 06/04/2023 FINDINGS: RIGHT HAND Three views show no evidence of acute displaced fracture or dislocation of the visualized bony architecture. There is mild osteoarthritic change of the DIP and PIP joints. There is an accessory ossicle along the ulnar styloid process, symmetric with the left. IMPRESSION: Mild degenerative change as described without acute bony abnormality. Reviewed, Interpreted and Dictated by Eve Hernandes MD Transcribed by Kimberly Pinedo Authenticated and [facility]
--- NOTE | 2024-07-06 12:34 | XR_ITS ---
FINAL REPORT CLINICAL HISTORY: PAIN COMPARISON: None FINDINGS: LEFT HAND Three views show no evidence of acute displaced fracture or dislocation of the visualized bony architecture. There is an old healed fracture of the fifth metacarpal. An accessory ossicle is present along the ulnar styloid process, symmetric with the right hand. There is minimal osteoarthritic change in the DIP joints. IMPRESSION: No acute bony abnormality. Mild degenerative change as described. Reviewed, Interpreted and Dictated by Eve Hernandes MD Transcribed by Kimberly Pinedo Authenticated and [facility]
[2024-07-06 13:00] LABS: Basophils % 0.5 % (0.1-2.0); Eosinophils # 0.3 K/mm3 (0.0-0.4); Hematocrit 37.8 % (37.0-47.0); Hemoglobin 12.3 g/dL (12.2-16.2); Lymphocytes # 3.3 K/mm3 (0.7-4.5); Lymphocytes % 41.2 % (10-50); Mean Corpuscular HGB Conc 32.5 g/dL (31.8-35.4); Mean Corpuscular Hemoglobin 29.4 pg (27.0-31.2); Mean Corpuscular Volume 90.4 fl (81-99); Mean Platelet Volume 8.9 fl (7.4-10.4); Monocytes # 0.5 K/mm3 (0.1-1.0); Monocytes % 6.1 % (1.7-9.3); Neutrophils # 3.8 K/mm3 (1.8-7.8); Neutrophils % 48.1 % (37.0-80.0); Platelet Count 360 K/mm3 (142-424); Red Blood Count 4.18 M/mm3 (4.20-5.40); Red Cell Distribution Width 12.6 % (11.5-17.5)
[2024-07-06 13:33] LABS: Albumin Level 4.7 g/dl (3.5-5.0); Chloride 106 mmol/L (98-107); Sodium 140 mmol/L (136-145)
[2024-07-06 13:34] LABS: Potassium 4.1 mmoL/L (3.5-5.1)
[2024-07-06 13:36] LABS: Alanine Aminotransferase 31 U/L (12-78); Anion Gap 10.1 mEq/L (5-15); Aspartate Amino Transferase 32 U/L (14-36); Blood Urea Nitrogen 14 mg/dl (7-17); Carbon Dioxide 28 mmol/L (22.0-30.0); Estimated Glomerular Filt Rate 77 ml/min (>60); GFR (African American) 93 ML/MIN (>60)
[2024-07-06 13:37] LABS: Albumin/Globulin Ratio 1.7 (1.1-1.8); Alkaline Phosphatase 109 U/L (38-126); Bilirubin,Total 0.6 mg/dl (0.2-1.3); Globulin 2.8 g/dL (1.3-3.2); Glucose 84 mg/dl (74-100); Total Protein,Serum 7.5 g/dl (6.3-8.2)
[2024-07-06 13:48] LABS: C-Reactive Protein 8.1 mg/L (0-4)
[2024-07-06 13:57] LABS: Erythrocyte Sedimentation Rate 35 mm/hr (0-20)
[2024-07-06 14:12] LABS: Thyroid Stimulating Hormone 1.17 uIU/mL (0.465-4.68)
[2024-07-06 14:15] LABS: Ferritin 90.4 ng/ml (6.24-137)
[2024-07-06 14:52] LABS: Uric Acid 3.5 mg/dl (2.5-6.2)
[2024-07-06 15:00] LABS: Hemoglobin A1C 4.4 % (4.0-6.0)
[2024-07-06 15:04] LABS: 25-OH Vitamin D, Total 23.3 ng/mL (30-100)
[2024-07-06 15:43] LABS: Vitamin B12 396 pg/mL (239-931)
[2024-07-06 15:52] LABS: Folate 4.17 ng/mL
[2024-07-07 08:15] LABS: Hepatitis C Antibody Non Reactive (Non Reactive)
[2024-07-07 14:12] LABS: RA Latex Turbid. <10.0 IU/mL (<14.0)
[2024-07-12 19:40] LABS: Anti-CCP Abs,IgG and IgA (RDL) < 20 Units (<20)
[2024-07-13 09:31] LABS: Antinuclear Antibodies, IFA Positive
== END 2024-07-06 23:59 | disposition home or self-care (01) ==
LOC: LAB 12:21
PROVIDERS: PCP Internal Medicine Adolescent Medicine; Visit Provider Nurse Practitioner Family
DX: M25.551 Pain in right hip (principal); M79.641 Pain in right hand; M79.642 Pain in left hand; M16.11 Unilateral primary osteoarthritis, right hip
CPT/HCPCS: 36415; 73130; 73502; 80053; 82306; 82607; 82728; 82746; 83036; 84443; 84550; 85025; 85651; 86038; 86140; 86200; 86235; 86431; 87380

== ENCOUNTER 2024-07-25 13:11 | Outpatient (CLI) | payer OTHER, SELFPAY ==
[2024-07-25 15:01] LABS: Erythrocyte Sedimentation Rate 66 mm/hr (0-20)
[2024-07-25 15:09] LABS: Uric Acid 2.9 mg/dl (2.5-6.2)
[2024-07-26 10:42] LABS: RA Latex Turbid. <10.0 IU/mL (<14.0)
[2024-07-27 11:18] LABS: Antinuclear Antibodies, IFA Negative (.)
[2024-07-29 19:10] LABS: Anti-CCP Abs,IgG and IgA (RDL) < 20 Units (<20)
== END 2024-07-25 23:59 | disposition home or self-care (01) ==
LOC: LAB 13:11
PROVIDERS: PCP Internal Medicine Adolescent Medicine; Visit Provider Physician Assistant
DX: M19.041 Primary osteoarthritis, right hand (principal); M19.042 Primary osteoarthritis, left hand; M70.61 Trochanteric bursitis, right hip; M16.11 Unilateral primary osteoarthritis, right hip
CPT/HCPCS: 36415; 84550; 85651; 86038; 86200; 86431

== ENCOUNTER 2024-08-30 14:00 | Outpatient (CLI) | payer OTHER, SELFPAY ==
[2024-08-30 14:12] VITALS: BMI 37.1
--- NOTE | 2024-08-30 14:24 | ECG_ITS ---
APPROVED REPORT Exam: Resting ECG HR:68 bpm ECG Measurements Heart Rate 68 AXES HI 141 P 50 QRSd 110 QRS 15 QT 396 T 21 QTc 413 Conclusion SINUS RHYTHM POSSIBLE LEFT VENTRICULAR HYPERTROPHY [VOLTAGE CRITERIA PLUS LAE OR QRS WIDENING] POSSIBLE LATERAL MYOCARDIAL INFARCTION , PROBABLY OLD [30 ms Q WAVE IN I/aVL/V5/V6] ABNORMAL ECG UNCONFIRMED REPORT Electronically signed by : David Garcia MD 08/31/2024 07:52:26
[2024-08-30 14:35] LABS: Basophils % 0.4 % (0.1-2.0); Eosinophils # 0.2 Kmm3 (0.0-0.4); Eosinophils % 1.9 % (0.1-12.0); Hemoglobin 12.5 g/dL (12.2-16.2); Lymphocytes # 3.2 K/mm3 (0.7-4.5); Lymphocytes % 31.8 % (10-50); Mean Corpuscular HGB Conc 32.9 g/dL (31.8-35.4); Mean Corpuscular Volume 91.1 fl (81-99); Mean Platelet Volume 8.6 fl (7.4-10.4); Monocytes # 0.7 K/mm3 (0.1-1.0); Monocytes % 7.1 % (1.7-9.3); Neutrophils # 5.9 K/mm3 (1.8-7.8); Neutrophils % 58.6 % (37.0-80.0); Nucleated Red Blood Cells # 0 10^3/uL; Nucleated Red Blood Cells % 0 %; Platelet Count 335 K/mm3 (142-424); Red Blood Count 4.17 M/mm3 (4.20-5.40); Red Cell Distribution Width 12.4 % (11.5-17.5); Red Cell Distribution Width-SD 41.2 fL; White Blood Count 10.1 K/mm3 (4.8-10.8)
[2024-08-30 14:39] LABS: Chloride 107 mmol/L (98-107); Sodium 141 mmol/L (136-145)
[2024-08-30 14:40] LABS: Potassium 3.5 mmoL/L (3.5-5.1)
[2024-08-30 14:42] LABS: Blood Urea Nitrogen 13 mg/dl (7-17); Creatinine Clearance Estimated 143 mL/min (50-200); Estimated Glomerular Filt Rate 77 ml/min (>60); GFR (African American) 93 ML/MIN (>60)
[2024-08-30 14:43] LABS: Anion Gap 9.5 mEq/L (5-15); Calcium 9.5 mg/dl (8.4-10.2); Carbon Dioxide 28 mmol/L (22.0-30.0); Glucose 96 mg/dl (74-100)
== END 2024-08-30 23:59 | disposition home or self-care (01) ==
LOC: PREOP 14:01
PROVIDERS: PCP Internal Medicine Adolescent Medicine; Visit Provider Orthopaedic Surgery
DX: Z01.810 Encounter for preprocedural cardiovascular examination (principal); Z01.812 Encounter for preprocedural laboratory examination; R94.31 Abnormal electrocardiogram [ECG] [EKG]
CPT/HCPCS: 80048; 85025; 93005

== ENCOUNTER 2024-09-05 07:03 | Day surgery (SDC) | payer OTHER, SELFPAY ==
[2024-08-30 15:38] VITALS: BMI 37.1
[2024-09-05 07:30] VITALS: BP 136/95; PULSE 64; RESP 18; TEMP 36.1; O2SAT 98
--- NOTE | 2024-09-05 07:48 | EXP.ANES.CKL ---
[facility] Disclaimer: The information contained in this section may have been updated after the patient was seen, as this information can be updated by other users. Medical History HTN (hypertension) Bronchitis Sinusitis Witnessed apneic spells Daytime somnolence Snoring Dyspnea Facet arthropathy, lumbar Foot pain Carotid artery disease CKD (chronic kidney disease) stage 2, GFR 60-89 ml/min Lumbar radiculopathy Radiculopathy due to lumbar intervertebral disc disorder Chest pain Swelling SOB (shortness of breath) Other forms of angina pectoris Malignant essential hypertension Migraine Surgical History History of lithotripsy History of appendectomy History of tonsillectomy History of hysterectomy History of cholecystectomy Family History Other Family history of diabetes mellitus type II Family history of hypertension Family history of stroke Social History Smoking Status: Former smoker second hand exposure: Yes alcohol intake: never substance use type: denies use current occupational status: employed and unemployed Travel in the last 8 weeks?: None household members: family housing: house number of children: 4 current occupational exposures/hazards: No caffeine: Yes Have you lived/traveled outside US in past 30 days?: No Contact w/someone who lives/traveled outside US past 30 days?: No Exposure to someone with infectious disease in past 14 days?: No Do you have a fever (greater than 100.4 F or 38 C)?: No Have you tested positive for COVID-19?: No Exposed to someone with COVID-19 in past 14 days?: No Do you have a sore throat?: No Do you have a cough?: No Do you have any weakness?: No Do you have any diarrhea?: No Are you experiencing any unusual bleeding?: No Do you have any muscle aches/pain?: No Do you have any abdominal pain?: No Are you experiencing loss of taste or smell?: No [facility] Anesthesia Checklist Patient Identification Patient Identification: Arm Band Structural Data Admitted From: Home Planned Operative Procedure/s: Excision Right Thumb Mass Consent for Planned Operative Procedure(s) Verified: Yes Verified Documents: Surgical Consent and History and Physical NPO Status Verified Time NPO: 00:00 Additional verifications Anesthesia Reactions: No Hx Blood Transfusions: No Blood Transfusion Reaction: No Airway Assessment Mallampati Score:: Class II C-Spine Mobility Assessed: Yes TMJ Mobility Assessed: Yes Dentition: Good Dentition Neurological Assessment Level of Consciousness: Awake, Alert and Appropriate Anesthesia Plan Anesthesia Risk discussed: Yes Anesthesia Plan: Verified ASA Class: III Anesthesia Type: MAC
[2024-09-05] MEDS: BUPIVACAINE 0.5% W/EPI 1:200,000 30ML VIAL 30 ML IJ (09:15)
[2024-09-05] MEDS: CLINDAMYCIN PHOSPHATE/D5W 900 MG/50 ML PIGGYBACK 100 MG IV (09:16)
--- NOTE | 2024-09-05 09:30 | P.OP_ITS ---
Date of procedure: 09/05/24 Pre-op Diagnosis:: Soft tissue mass right thumb Post-op Diagnosis:: Same Procedure performed:: Excision soft tissue mass right thumb Surgeon:: Rajendra Garcia DO Instructor Product Inspection(s):: SELIN Anesthesia: MAC and local Estimated blood loss (mL): 0 Operative findings:: Ruptured cyst IP joint right thumb Operative note:: Patient is identified preoperatively. Right thumb marked with yes my initials. The cyst had gotten large and ruptured over the last few days. There is remnants of the cyst and scarring with soft tissue mass at the IP joint of the thumb. Patient was taken the operating room placed upon the bed given sedation. Right upper extremity was prepped and draped in normal sterile fashion. Once prepped and draped final operative timeout performed to identify proper patient procedure and extremity. Everyone involved in the case agreed. There is no counter indications beginning. Did receive preoperative antibiotics. Marking pen was used to make planned incision for ellipse over the thickened ruptured cyst with scar of the skin. Local anesthesia was infiltrated around the cyst and Esmarch was used to exsanguinate the extremity pneumatic tourniquet plated 250 mmHg. A Franklin blade was used to ellipse around the thickened scar tissue around the ruptured cyst to remove this hardened thickened skin. The debris with where the cyst was was debrided with the pickups. Irrigation performed. There is no ganglion collection as it just ruptured so the remnants of the capsule removed. Irrigation repeated. Skin was then closed with nylon stitch and a sterile hand dressing patient waken anesthesia taken recovery stable condition. Condition: stable Disposition: PACU Complications:: None apparent
[2024-09-05 09:34] VITALS: BP 106/65; PULSE 53; RESP 17; O2SAT 94
[2024-09-05 09:44] VITALS: BP 130/74; PULSE 58; RESP 17; O2SAT 95
[2024-09-05 09:54] VITALS: BP 136/77; PULSE 57; RESP 17; O2SAT 96
[2024-09-05 10:04] VITALS: BP 135/73; PULSE 55; RESP 17; O2SAT 97
[2024-09-05] MEDS: KETOROLAC 30MG/ML VIAL 30 MG IV (10:10)
--- NOTE | 2024-09-06 11:04 | EXP.ANES.II ---
[facility] Anesthesia Record Part II Anesthesia Record Part II Discharge Time: 10:04 Destination: Surgical Day Care (OP Surgery) PACU nurse assessment reviewed?: Yes Patient Condition:: Good Anesthesia Complications:: None Swallowing reflex intact?: Yes Airway Patency: Patent Cyanosis?: No Blood Pressure: 135/73 SaO2: 97 Respiratory Rate: 17 Pulse Rate: 55 Temperature: 97.0 F Mental Status: Alert & Oriented Pain level:: 4 Nausea and/or vomitting:: None Intake, IV Amount: 0 Hydration: Adequate
[2024-09-06 11:05] VITALS: BP 135/73; PULSE 55; RESP 17; TEMP 36.1; O2SAT 97
== END 2024-09-05 10:55 | disposition home or self-care (01) ==
PROVIDERS: PCP Internal Medicine Adolescent Medicine; Visit Provider Orthopaedic Surgery
PROC: (CPT 26160; principal; 2024-09-05 08:15)
DX: R22.31 Localized swelling, mass and lump, right upper limb (principal)
CPT/HCPCS: 26160; J0736; J1885; J2250; J2405; J2704; J3010

== ENCOUNTER 2024-09-10 23:00 | Emergency (ER) | payer OTHER, SELFPAY ==
--- NOTE | 2024-09-10 23:07 | XR_ITS ---
PROCEDURE INFORMATION: Exam: XR Chest Exam date and time: 09/10/2024 11:17 PM Age: 49 years old Clinical indication: Pain; Chest pressure and other: Cp TECHNIQUE: Imaging protocol: Radiologic exam of the chest. Views: 1 view. COMPARISON: CR XR CHEST 2V 08/01/2023 3:04 PM FINDINGS: Lungs: Unremarkable. No consolidation. Pleural spaces: Unremarkable. No pleural effusion. No pneumothorax. Heart/Mediastinum: Unremarkable. No cardiomegaly. Bones/joints: Unremarkable. IMPRESSION: No acute findings.
--- NOTE | 2024-09-10 23:07 | ECG_ITS ---
APPROVED REPORT Exam: Resting ECG HR:99 bpm ECG Measurements Heart Rate 99 AXES OR 132 P 66 QRSd 97 QRS 36 QT 342 T 60 QTc 399 Conclusion SINUS RHYTHM MINIMAL ST DEPRESSION [0.025+ mV ST DEPRESSION] BORDERLINE ECG UNCONFIRMED REPORT Electronically signed by : YAN FRANCIS, 09/11/2024 23:42:43
[2024-09-10 23:11] VITALS: BP 134/86; PULSE 86; RESP 20; TEMP 36.6; O2SAT 97; BMI 37.9
[2024-09-10 23:19] LABS: Basophils # 0.1 K/mm3 (0-0.2); Basophils % 0.4 % (0.1-2.0); Eosinophils # 0.3 Kmm3 (0.0-0.4); Hematocrit 42.5 % (37.0-47.0); Hemoglobin 14.3 g/dL (12.2-16.2); Immature Granulocytes # 0.05 10^3uL; Immature Granulocytes % 0.3 %; Lymphocytes # 5.6 K/mm3 (0.7-4.5); Lymphocytes % 38.8 % (10-50); Mean Corpuscular HGB Conc 33.6 g/dL (31.8-35.4); Mean Corpuscular Hemoglobin 30.6 pg (27.0-31.2); Mean Platelet Volume 8.5 fl (7.4-10.4); Monocytes # 1.2 K/mm3 (0.1-1.0); Monocytes % 8.5 % (1.7-9.3); Neutrophils # 7.1 K/mm3 (1.8-7.8); Nucleated Red Blood Cells # 0 10^3/uL; Nucleated Red Blood Cells % 0 %; Platelet Count 358 K/mm3 (142-424); Red Blood Count 4.67 M/mm3 (4.20-5.40); Red Cell Distribution Width 12.7 % (11.5-17.5); Red Cell Distribution Width-SD 41.5 fL; White Blood Count 14.3 K/mm3 (4.8-10.8)
[2024-09-10] MEDS: ASPIRIN 81MG CHEWABLE TABLET 324 MG PO (23:19)
--- NOTE | 2024-09-10 23:20 | ED_ITS ---
Discharge Plan Disposition Patient Disposition: Home, Self-Care Prescriptions Prescriptions: No Action benzonatate 100 mg capsule 100 mg PO TID PRN (Reason: cough) Qty: 30 0RF celecoxib 200 mg capsule 200 mg PO DAILY Patient Comments: TAKE ONE CAPSULE BY MOUTH EVERY DAY cholecalciferol (vitamin D3) 50 mcg (2,000 unit) tablet 50 mcg PO DAILY Patient Comments: TAKE ONE TABLET BY MOUTH ONCE DAILY hydroxyzine pamoate 50 mg capsule 50 mg PO DAILY Patient Comments: TAKE 1 TO 2 CAPSULE(S) BY MOUTH EVERY EVENING NEEDED FOR SLEEP valsartan-hydrochlorothiazide 160-25 mg tablet 1 tab PO DAILY carvedilol 6.25 mg tablet 6.25 mg PO BID Patient Comments: TAKE ONE TABLET BY MOUTH TWICE DAILY pantoprazole 40 mg tablet,delayed release (DR/EC) 40 mg PO DAILY Qty: 30 0RF sertraline 50 mg tablet 50 mg PO AM Patient Comments: TAKE ONE TABLET BY MOUTH EVERY MORNING tramadol 50 mg tablet 50 mg PO Q6H PRN (Reason: post op pain) Qty: 15 0RF Referrals Follow up/Referrals: Erica Tucker APRN [Primary Care Provider] - See instructions Activity Restrictions/Add. Instructions Additional Instructions/Restrictions: Please follow-up with your primary care provider. Please return to the emergency department if you develop any new or worsening symptoms or become concerned for your health. Clinical Impressions Clinical Impression: Palpitations, Shortness of breath Print Language Print Language: Welsh Discharge ED Provider: Boaz Alejandra General Adult HPI General Chief complaint: Chest Pain Stated complaint: Heart racing,hard to get breath,weight on chest Time Seen by Provider: 09/10/24 23:00 History of Present Illness HPI narrative: 49-year-old female with history of hypertension presents for multiple complaints. She reports over the last couple days she has been having some palpitations, lightheadedness, shortness of breath feels like she has some difficulty taking a deep breath and has some chest tightness. Feels a little bit worse today. She denies any infectious symptoms such as cough fever congestion rhinorrhea urinary symptoms. Denies any abdominal pain, headache, neurologic symptoms. Related Data Home Medications ?Medication ?Instructions ?Recorded ?Confirmed hydroxyzine pamoate 50 mg capsule 50 mg PO DAILY 03/02/24 09/05/24 valsartan 160 1 tab PO DAILY 03/02/24 09/05/24 mg-hydrochlorothiazide 25 mg tablet carvedilol 6.25 mg tablet 6.25 mg PO BID 04/04/24 09/05/24 sertraline 50 mg tablet 50 mg PO AM 05/02/24 09/05/24 celecoxib 200 mg capsule 200 mg PO DAILY 07/26/24 09/05/24 cholecalciferol (vitamin D3) 50 50 mcg PO DAILY 07/26/24 09/05/24 mcg (2,000 unit) tablet Previous Rx's ?Medication ?Instructions ?Recorded pantoprazole 40 mg tablet,delayed 40 mg PO DAILY #30 tabs 04/04/24 release benzonatate 100 mg capsule 100 mg PO TID PRN cough #30 caps 07/31/24 tramadol 50 mg tablet 50 mg PO Q6H PRN post op pain #15 09/05/24 tabs Allergies Allergy/AdvReac Type Severity Reaction Status Date / Time amlodipine Allergy Intermediate swelling Verified 09/05/24 07:29 legs and feet Penicillins (PENICILLINS) Allergy Intermediate I-RASH Verified 09/05/24 07:29 metoclopramide (From REGLAN) Allergy Mild NA-HALLUCIN Verified 09/05/24 07:29 ATIONS amoxicillin Allergy Rash Verified 09/05/24 07:29 ibuprofen Allergy Nausea Verified 09/05/24 07:29 [facility] Disclaimer: The information contained in this section may have been updated after the patient was seen, as this information can be updated by other users. Medical History (Updated 09/11/24 @ 01:51 by Boaz Alejandra MD) HTN (hypertension) Bronchitis Sinusitis Witnessed apneic spells Daytime somnolence Snoring Dyspnea Facet arthropathy, lumbar Foot pain Carotid artery disease CKD (chronic kidney disease) stage 2, GFR 60-89 ml/min Lumbar radiculopathy Radiculopathy due to lumbar intervertebral disc disorder Chest pain Swelling SOB (shortness of breath) Other forms of angina pectoris Malignant essential hypertension Migraine Surgical History History of lithotripsy History of appendectomy History of tonsillectomy History of hysterectomy History of cholecystectomy Family History Other Family history of diabetes mellitus type II Family history of hypertension Family history of stroke Social History Smoking Status: Unknown if ever smoked second hand exposure: Yes alcohol intake: never substance use type: denies use current occupational status: employed and unemployed Travel in the last 8 weeks?: None household members: family housing: house number of children: 4 current occupational exposures/hazards: No caffeine: Yes Have you lived/traveled outside US in past 30 days?: No Contact w/someone who lives/traveled outside US past 30 days?: No Exposure to someone with infectious disease in past 14 days?: No Do you have a fever (greater than 100.4 F or 38 C)?: No Have you tested positive for COVID-19?: No Exposed to someone with COVID-19 in past 14 days?: No Do you have a sore throat?: No Do you have a cough?: No Do you have any weakness?: No Do you have any diarrhea?: No Are you experiencing any unusual bleeding?: No Do you have any muscle aches/pain?: No Do you have any abdominal pain?: No Are you experiencing loss of taste or smell?: No Other Medical History Have you received the Flu Vaccine for this season: Yes Have you received the Pneumonia Vaccine: No ROS Obtained: Yes All systems reviewed & no additional complaints except as documented Physical Exam General General appearance: alert and in no apparent distress Head Head exam: atraumatic and normocephalic Eye Eye exam: Present normal appearance, PERRL and EOMI ENT ENT exam: Present normal oropharynx and normal external ear exam Neck Neck exam: Present normal inspection and full ROM Chest Chest inspection: Present normal inspection and symmetric chest wall rise; Absent tenderness Respiratory Respiratory exam: Present normal lung sounds bilaterally; Absent respiratory distress Cardiovascular Cardiovascular exam: Present regular rate and normal rhythm Abdominal Exam Abdominal exam: Present soft; Absent distention, tenderness or guarding Extremities Exam Extremities exam: Present normal inspection; Absent edema or joint swelling Back Exam Back exam: Present normal inspection; Absent tenderness Neurological Exam Neurological exam: Present alert and oriented X3; Absent motor sensory deficit Psychiatric Psychiatric exam: Present normal affect and normal mood Skin Skin exam: Present warm, dry and normal color Lymphatic Lymphatic Findings: no adenopathy Medical Decision Making Medical Records Medical records reviewed: Yes I reviewed the patient's medical records. Screening: Per USPSTF and CDC recommendations, given the prevalence of disease in our region, it is our hospital?s policy to screen for HIV and viral Hepatitis for all patients aged 18 and over and those with ongoing risk factors. Mark Inquiry Pt receiving controlled substance: No Mark was queried for this patient: No Vital Signs: 09/10/24 23:11 09/10/24 23:31 09/11/24 00:30 Temperature 97.9 F Temperature Source Oral Pulse Rate 79 80 Pulse Rate [Left] 86 Respiratory Rate 20 17 15 Blood Pressure 132/84 126/84 Blood Pressure [Right Arm] 134/86 Blood Pressure Mean [Right Arm] 102 02 Sat by Pulse Oximetry 97 92 L 95 Oxygen Delivery Method Room Air Room Air 09/11/24 01:01 09/11/24 01:30 09/11/24 02:00 Temperature Temperature Source Pulse Rate 73 67 76 Pulse Rate [Left] Respiratory Rate 18 17 18 Blood Pressure 115/94 H 119/77 121/79 Blood Pressure [Right Arm] Blood Pressure Mean [Right Arm] 02 Sat by Pulse Oximetry 95 98 96 Oxygen Delivery Method Room Air Room Air Room Air 09/11/24 02:16 Temperature 97.9 F Temperature Source Oral Pulse Rate 81 Pulse Rate [Left] Respiratory Rate 16 Blood Pressure 121/79 Blood Pressure [Right Arm] Blood Pressure Mean [Right Arm] 02 Sat by Pulse Oximetry Oxygen Delivery Method Room Air Lab Data Lab results reviewed: Yes I reviewed the patient's lab results. Lab Results 09/10/24 23:10: WBC 14.3 H, RBC 4.67, Hgb 14.3, Hct 42.5, MCV 91.0, MCH 30.6, MCHC 33.6, RDW 12.7, Plt Count 358, MPV 8.5, Neut % (Auto) 50.0, Lymph % (Auto) 38.8, [place] % (Auto) 8.5, Eos % (Auto) 2.0, Baso % (Auto) 0.4, Neut # (Auto) 7.1, Lymph # (Auto) 5.6 H, [place] # (Auto) 1.2 H, Eos # (Auto) 0.3, Baso # (Auto) 0.1, Total Counted 100, Neutrophils % (Manual) 51, Lymphocytes % (Manual) 42, Monocytes % (Manual) 4, Eosinophils % (Manual) 3, Platelet Estimate Normal, RBC Morphology Normal, D-Dimer 0.58 H, Sodium 139, Potassium 3.5, Chloride 106, Carbon Dioxide 27, Anion Gap 9.5, BUN 19 H, Creatinine 0.90, Estimated Creat Clear 130, Estimated GFR 67, Est GFR ( Amer) 81, Glucose 110 H, Calcium 9.5, Magnesium 1.8, Total Bilirubin 0.7, AST 31, ALT 25, Alkaline Phosphatase 107, Troponin I < 0.01, NT-Pro-B Natriuret Pep < 20.0, Total Protein 7.9, Albumin 4.7, Globulin 3.2, Albumin/Globulin Ratio 1.5, TSH 2.89, Thyroxine (T4) 10.4 09/11/24 01:32: Troponin I < 0.01 09/10/24 23:10 09/10/24 23:10 Orders (Tests/Meds): ED MEDICATIONS Discontinued Medications Generic Name Dose Route Start Last Admin Trade Name Freq PRN Reason Stop Dose Admin Aspirin 324 mg 09/10/24 23:07 09/10/24 23:19 Aspirin 81mg Chewable Tablet PO 09/10/24 23:08 324 mg ONCE ONE Administration Iopamidol 70 ml 09/11/24 00:04 09/11/24 00:05 Iopamidol-370 (76%);100ml Bottle IV 09/11/24 00:05 70 ml ONCE ONE Administration Sodium Chloride 10 ml 09/11/24 00:04 09/11/24 00:04 Sodium Chloride 0.9% 10ml Syr (Rad Only) IV 09/11/24 00:05 10 ml ONCE ONE Administration Sodium Chloride 50 ml 09/11/24 00:04 09/11/24 00:04 0.9 % Sodium Chloride 50 Ml Vial IV 09/11/24 00:05 50 ml ONCE ONE Administration ORDERS Category Date Time Status CT angio chest PE protocol Stat Cat Scan 09/10/24 23:43 Completed CXR --portable [XR chest portable] Stat Exams 09/10/24 23:07 Completed BNP [NT Pro Brain Natriuretic Pep.] Stat Lab 09/10/24 23:10 Completed CBC w/Auto Diff [Complete Blood Count Auto Diff] Stat Lab 09/10/24 23:10 Completed CMP [Comprehensive Metabolic Panel] Stat Lab 09/10/24 23:10 Completed D-Dimer Stat Lab 09/10/24 23:10 Completed Magnesium Stat Lab 09/10/24 23:10 Completed T4 (Thyroxine) Stat Lab 09/10/24 23:10 Completed TSH [Thyroid Stimulating Hormone] Stat Lab 09/10/24 23:10 Completed Troponin I Q3H Lab 09/10/24 23:10 Completed Troponin I Q3H Lab 09/11/24 01:32 Completed ECG Data Tracing #1: I reviewed this ECG and interpreted as documented below: Sinus rhythm, rate of 99, wandering baseline limits interpretation, there is suggestion of subtle ST depression in lead I and II, not present in contiguous leads. Similar to prior EKG obtained on 08/30. no evidence of arrhythmia. Baseline wanders slightly which limits interpretation. ECG initial impression date: 09/10/24 ECG initial impression time: 23:08 HEART Score History (anamnesis): Slightly suspicious ECG: Non-specific disturbance Age: 45-65 years Risk factors: 1-2 risk factors Troponin: </= normal limit HEART Score: 3 Medical Decision Narrative: 49-year-old female with history of present for a couple of days of difficulty catching her breath, lightheadedness, heart racing etc.. History was obtained via interactive discussion with patient, chart review. On arrival, patient is [afebrile, hemodynamically stable, satting appropriately, alert, oriented x4, GCS 15], moving all extremities spontaneously. Full physical exam performed and significant for no significant physical exam or normalities per Differential includes but is not limited to arrhythmia, PE, heart failure, pneumonia, pneumothorax, arrhythmia, pleurisy, anxiety. Patient was given aspirin for symptomatic management and correction of underlying abnormalities. Workup initiated including CBC CMP mag Phos TSH T4 BNP troponin EKG chest x-ray. D-dimer obtained as patient is unable to PERC out due to heart rate over 100. On re-evaluation, patient [remains afebrile, HD stable.] Laboratory workup independently interpreted by me and significant for positive D-dimer, CTA ordered negative initial troponin, no other significant laboratory abnormalities.. Imaging independently interpreted by me and significant for clear lungs bilaterally on chest x-ray, no evidence of acute PE or pneumothorax on CT imaging. See radiology read for full review of final results. Patient was placed in ED observation status for serial troponins and cardiac monitoring. On reassessment, after period of observation patient remains hemodynamically stable. Stable vital signs. Repeat troponin returned undetectably low. Given history presentation and workup, presentation does not appear consistent with a emergent cardiac or pulmonary pathology. Given this, patient was deemed appropriate for discharge with outpatient management. Recommend she follow-up with her PCP and cardiology for further assessment. Procedures Risk/Benefits of Procedure(s) Were Explained: Yes Critical Care Critical Care Time Critical Care Time: No
[2024-09-10 23:22] LABS: MANUAL DIFFERENTIAL MANUAL DIFFERENTIAL (MANUAL DIFF)
[2024-09-10 23:28] LABS: Alanine Aminotransferase 25 U/L (12-78); Albumin Level 4.7 g/dl (3.5-5.0); Albumin/Globulin Ratio 1.5 (1.1-1.8); Alkaline Phosphatase 107 U/L (38-126); Anion Gap 9.5 mEq/L (5-15); Aspartate Amino Transferase 31 U/L (14-36); Bilirubin,Total 0.7 mg/dl (0.2-1.3); Blood Urea Nitrogen 19 mg/dl (7-17); Calcium 9.5 mg/dl (8.4-10.2); Carbon Dioxide 27 mmol/L (22.0-30.0); Chloride 106 mmol/L (98-107); Creatinine Clearance Estimated 130 mL/min (50-200); Estimated Glomerular Filt Rate 67 ml/min (>60); GFR (African American) 81 ML/MIN (>60); Globulin 3.2 g/dL (1.3-3.2); Glucose 110 mg/dl (74-100); Magnesium 1.8 mg/dl (1.6-2.3); Potassium 3.5 mmoL/L (3.5-5.1); Sodium 139 mmol/L (136-145); Total Protein,Serum 7.9 g/dl (6.3-8.2)
[2024-09-10 23:31] VITALS: BP 132/84; PULSE 79; RESP 17; O2SAT 92
[2024-09-10 23:32] LABS: D-Dimer 0.58 ug/mL (0.0-0.5)
[2024-09-10 23:41] LABS: NT Pro Brain Natriuretic Pep. < 20.0 pg/mL (0-125); Troponin I < 0.01 ng/ml (0.00-0.034)
--- NOTE | 2024-09-10 23:43 | CT_ITS ---
PROCEDURE INFORMATION: Exam: CTA Chest With Contrast Exam date and time: 09/10/2024 11:59 PM Age: 49 years old Clinical indication: Pain; Shortness of breath; Chest pressure; Additional info: Cp, SOA, positive dimer TECHNIQUE: Imaging protocol: Computed tomographic angiography of the chest with contrast. Exam focused on the arteries. 3D rendering (Not supervised by radiologist): MIP and/or 3D reconstructed images were created by the technologist. Radiation optimization: All CT scans at this facility use at least one of these dose optimization techniques: automated exposure control; mA and/or kV adjustment per patient size (includes targeted exams where dose is matched to clinical indication); or iterative reconstruction. Contrast material: ISOVUE; Contrast volume: 70 ml; Contrast route: INTRAVENOUS (IV); COMPARISON: CR XR CHEST PORTABLE 09/10/2024 11:17 PM FINDINGS: Pulmonary arteries: Normal. No pulmonary emboli. Aorta: Unremarkable. No aortic aneurysm. No aortic dissection. Lungs: Unremarkable. No consolidation. No masses. Pleural spaces: Unremarkable. No pneumothorax. No pleural effusion. Heart: Unremarkable. No cardiomegaly. No pericardial effusion. Lymph nodes: Unremarkable. No enlarged lymph nodes. Bones/joints: Unremarkable. No acute fracture. Soft tissues: Unremarkable. IMPRESSION: No acute findings.
[2024-09-10 23:46] LABS: T4 (Thyroxine) 10.4 ug/dl (5.53-11.0)
[2024-09-10 23:59] LABS: Thyroid Stimulating Hormone 2.89 uIU/mL (0.465-4.68)
[2024-09-11] MEDS: SODIUM CHLORIDE 0.9% 10ML SYR (RAD ONLY) 10 ML IV (00:04)
[2024-09-11] MEDS: 0.9 % SODIUM CHLORIDE 50 ML VIAL IV (00:04)
[2024-09-11] MEDS: IOPAMIDOL-370 (76%);100ML BOTTLE 70 ML IV (00:05)
[2024-09-11 00:30] VITALS: BP 126/84; PULSE 80; RESP 15; O2SAT 95
[2024-09-11 01:01] VITALS: BP 115/94; PULSE 73; RESP 18; O2SAT 95
[2024-09-11 01:20] LABS: Eosinophils % 3 % (0-3); Lymphocytes % 42 % (10-50); Monocytes % 4 % (2-9); Neutrophils % 51 % (42-76); Platelet Estimate Normal; RBC Morphology Normal; Total Cells Counted 100
[2024-09-11 01:30] VITALS: BP 119/77; PULSE 67; RESP 17; O2SAT 98
--- NOTE | 2024-09-11 01:38 | PC.NURSE ---
second trop sent at this time
[2024-09-11 02:00] VITALS: BP 121/79; PULSE 76; RESP 18; O2SAT 96
[2024-09-11 02:08] LABS: Troponin I < 0.01 ng/ml (0.00-0.034)
[2024-09-11 02:16] VITALS: BP 121/79; PULSE 81; RESP 16; TEMP 36.6; O2SAT 97
== END 2024-09-11 02:17 | disposition home or self-care (01) ==
PROVIDERS: Emergency Provider Emergency Medicine; PCP Nurse Practitioner Family
DX: R00.2 Palpitations (principal); R06.02 Shortness of breath; I10 Essential (primary) hypertension
CPT/HCPCS: 71045; 71275; 80053; 83735; 83880; 84436; 84443; 84484; 85007; 85025; 85027; 85378; 93005; 99285; Q9967

== ENCOUNTER 2024-09-13 09:42 | Outpatient (CLI) | payer OTHER, SELFPAY ==
[2024-09-13 10:17] LABS: Basophils # 0.1 K/mm3 (0-0.2); Basophils % 0.6 % (0.1-2.0); Eosinophils # 0.2 Kmm3 (0.0-0.4); Eosinophils % 2.1 % (0.1-12.0); Hematocrit 38.9 % (37.0-47.0); Hemoglobin 12.6 g/dL (12.2-16.2); Immature Granulocytes # 0.03 10^3uL; Immature Granulocytes % 0.3 %; Lymphocytes # 3.9 K/mm3 (0.7-4.5); Lymphocytes % 38.9 % (10-50); Mean Corpuscular HGB Conc 32.4 g/dL (31.8-35.4); Mean Corpuscular Hemoglobin 29.9 pg (27.0-31.2); Mean Corpuscular Volume 92.2 fl (81-99); Mean Platelet Volume 8.8 fl (7.4-10.4); Monocytes # 0.8 K/mm3 (0.1-1.0); Monocytes % 7.7 % (1.7-9.3); Neutrophils % 50.4 % (37.0-80.0); Nucleated Red Blood Cells # 0 10^3/uL; Nucleated Red Blood Cells % 0 %; Platelet Count 305 K/mm3 (142-424); Red Blood Count 4.22 M/mm3 (4.20-5.40); Red Cell Distribution Width 12.5 % (11.5-17.5); Red Cell Distribution Width-SD 42.5 fL; White Blood Count 9.9 K/mm3 (4.8-10.8)
[2024-09-13 10:40] LABS: Alanine Aminotransferase 23 U/L (12-78); Albumin Level 4.4 g/dl (3.5-5.0); Alkaline Phosphatase 108 U/L (38-126); Anion Gap 6.9 mEq/L (5-15); Aspartate Amino Transferase 26 U/L (14-36); Bilirubin,Direct 0.2 mg/dl (0.0-0.4); Bilirubin,Indirect 0.4 mg/dL (0.0-0.9); Bilirubin,Total 0.6 mg/dl (0.2-1.3); Bilirubin,Unconjugated 0.4 mg/dL (0.0-1.1); Blood Urea Nitrogen 19 mg/dl (7-17); Calcium 9.6 mg/dl (8.4-10.2); Carbon Dioxide 24 mmol/L (22.0-30.0); Chloride 110 mmol/L (98-107); Chol/HDL Ratio 4.6 (1-3.5); Cholesterol 281 mg/dl (140-200); Estimated Glomerular Filt Rate 90 ml/min (>60); GFR (African American) 109 ML/MIN (>60); Glucose 91 mg/dl (74-100); HDL Cholesterol 61 mg/dl (40-60); Potassium 3.9 mmoL/L (3.5-5.1); Sodium 137 mmol/L (136-145); Triglycerides 171 mg/dl (30-150); VLDL Cholesterol 34 mg/dL (0-40)
[2024-09-13 10:51] LABS: Direct LDL Cholesterol 175.82 mg/dL (100-129)
[2024-09-13 10:57] LABS: Free T4 (Free Thyroxine) 1.22 ng/dl (0.78-2.19)
[2024-09-13 11:11] LABS: Thyroid Stimulating Hormone 1.88 uIU/mL (0.465-4.68)
== END 2024-09-13 23:59 | disposition home or self-care (01) ==
LOC: LAB 09:43
PROVIDERS: PCP Nurse Practitioner Family; Visit Provider Nurse Practitioner
DX: R94.31 Abnormal electrocardiogram [ECG] [EKG] (principal); R06.02 Shortness of breath; R00.2 Palpitations; I10 Essential (primary) hypertension; R53.1 Weakness; R53.83 Other fatigue; E87.6 Hypokalemia; R55 Syncope and collapse; R40.0 Somnolence; I77.9 Disorder of arteries and arterioles, unspecified
CPT/HCPCS: 36415; 80048; 80061; 80076; 84439; 84443; 85025

== ENCOUNTER 2024-09-28 10:10 | Outpatient (CLI) | payer OTHER, SELFPAY ==
--- NOTE | 2024-09-28 | CA_ITS ---
APPROVED REPORT Exam: Pharmacologic Technologist: Devi Zamora Ht: 5 ft 6 in Wt: 237 lbs BSA: 2.15 m2 HR: 55 bpm BP: 172/96 mmHg Stress Test Details Test: Lexiscan HR Resting HR: 55 bpm Max Heart Rate (APMHR): 173.031888 bpm Max HR Achieved: 69 bpm Target HR (85% APMHR): 147.695421 bpm % of APMHR: 39.88 Recovery HR: 66 bpm BP Resting BP: 172.0/96.0 mmHg Max BP: 177.0/90.0 mmHg Recovery BP: 170.0/99.0 mmHg ECG Resting ECG: Normal sinus rhythm, NSSTT Wave abnormalities inferiorly Stress ECG Conclusion Symptoms: None Arrhythmias/Ectopy: None ST-T Changes: < 1.[address] segment changes Conclusion: Non-diagnostic Lexiscan stress. Electronically signed by : Nilsa Mahmood MD 09/28/2024 23:32:25
--- NOTE | 2024-09-28 10:15 | CA_ITS ---
APPROVED REPORT EXAM: Comprehensive 2D, Doppler, and color-flow Echocardiogram Head Operator: Emilia John RVT Ht: 5 ft 6 in Wt: 237lbs BSA: 2.15 BP: 156/99 mmHg Indications: SOA,CP,ABN EKG, FATIGUE,HTN 2D Dimensions IVSd 0.92 cm F: 0.6-1.0 LVEF (Visual) 136.60 % PWd 3.18 cm F: 0.6 - 1.0 LA Volume 49.60 mL LVDd 2.40 cm F: 3.9 - 5.3 LA Volume Index 23.07 mL/m2 (M/F) 16-34 LVDs 3.41 cm F: 2.2 - 3.5 M-Mode Dimensions LA Diam 3.03 cm (1.9-4.0) TAPSE 2.60 (<1.7) LV Diastology E Decel Time 207 (160-240 msec) E/A Ratio 1.2 Aortic Valve DANYELLE Index 1.40 cm2/m2 AoV Peak Moe. 142.0 (50-130 cm/s) AI PHT 737.00 ms AO Peak GR. 8.00 mmHg AO Mean GR. 4.20 (<5 mmHg) AO VTI 29.3 (18-25 cm) DANYELLE (VTI) 3.07 (2.5-4.5 cm2) Mitral Valve MV E Max Moe. 85.0 (40-130 cm/s) MV A Velocity 71.0 (40-130 cm/s) E/A Ratio 1.19 MV Mean Gr. 1.60 (<2mmHg) MV PHT 61.0 ms Pulmonary Valve PV Peak Velocity 92.0 (50-150 cm/s) Tricuspid Valve TR P. Velocity 192.00 cm/s RAP Estimate 10.00 mmHg RVSP 24.70 mmHg Left Ventricle The left ventricle is normal size. The left ventricular systolic function is normal. The left ventricular ejection fraction is within the normal range. There is normal LV wall thickness. There is normal LV segmental wall motion. The left ventricular diastolic function is normal. LVEF is 55%. Right Ventricle The right ventricle is normal size. The right ventricular systolic function is normal. Atria The left atrium size is normal. The right atrium size is normal. There is no Doppler evidence of interatrial shunt. Aortic Valve Aortic valve opens well. There is no aortic valvular stenosis. Mild aortic regurgitation. Mitral Valve The mitral valve is normal in structure. No evidence of mitral valve stenosis. Mild mitral regurgitation. Tricuspid Valve Tricuspid valve is grossly normal in structure and function. Trace tricuspid regurgitation. RVSP is normal. Pulmonic Valve The pulmonary valve is normal in structure. Mild pulmonic regurgitation. Great Vessels The aortic root is normal in size. IVC is normal in size and collapses >50% with inspiration. Pericardium There is no pericardial effusion. Other Information Study Quality: Fair Conclusion Normal biventricular systolic function. Mild AI, mild MR, mild PI. Electronically signed by : Nilsa Mhamood MD 10/03/2024 22:15:13
--- NOTE | 2024-09-28 11:30 | NM_ITS ---
APPROVED REPORT Exam: Nuclear Stress Test Indication: SOB, Abnormal EKG, Fatigue, HTN, High cholesterol, Family history Patient Location: Outpatient Stress Tech: Devi Zamora DE Tech:Nuria Ramirez, ARRT, RT (R)(N) Ht: 5 ft 6 in Wt: 237 lbs Bra Size: 40D HR: 55 bpm BP: 172/96 mmHg BSA: 2.15 m2 TID: 1.06 BMI: 38.2 History: SOB, Abnormal EKG, Fatigue, HTN, High cholesterol, Family history Procedure: Patient received 0.4 mg of intravenous Lexiscan, resting heart rate 55 bpm, resting blood pressure 172/96 mmHg, with Lexiscan maximum heart rate achieved was 78 bpm which is % of the maximum predicted heart rate and blood pressure was 177/90 mmHg. With Lexiscan, patient denied any complaint of chest pain. Cardiac Stress and Resting SPECT Images: Cardiac Stress and Resting SPECT images were obtained using technetium 99m Myoview 31.8 mCi stress and 10.40 mCi at rest. Resting and stress imaging in supine and prone positions demonstrate no evidence of fixed or reversible perfusion defects. Gated imaging and straits normal global and regional LV systolic function. LVEF is calculated at 53%. Conclusion: No evidence of fixed or reversible perfusion defects. Gated imaging and straits normal global and regional LV systolic function. LVEF is calculated at 53%. Electronically signed by : Nilsa Mahmood MD 09/28/2024 23:30:04
[2024-09-28] MEDS: REGADENOSON 0.4MG/5ML SYRINGE 0.4 MG IV (14:29)
[2024-09-28] MEDS: ISOTOPE MYOVIEW (PER STUDY) 1 DOSE IV (14:29)
[2024-09-28] MEDS: SODIUM CHLORIDE 0.9% 10ML SYR (RAD ONLY) 10 ML IV ×2 (14:29)
== END 2024-09-28 23:59 | disposition home or self-care (01) ==
LOC: RT 10:11
PROVIDERS: PCP Nurse Practitioner Family; Visit Provider Nurse Practitioner
DX: I08.8 Other rheumatic multiple valve diseases (principal); E87.6 Hypokalemia; E78.00 Pure hypercholesterolemia, unspecified; R94.31 Abnormal electrocardiogram [ECG] [EKG]; I10 Essential (primary) hypertension; R55 Syncope and collapse; R40.0 Somnolence; I77.9 Disorder of arteries and arterioles, unspecified
CPT/HCPCS: 78452; 93017; 93018; 93306; A9502; J2785

== ENCOUNTER 2024-12-12 08:41 | Outpatient (CLI) | payer OTHER, SELFPAY ==
--- OUTSIDE RECORDS SUMMARY | 2024-10-11 05:00 | XMS_ITS ---
Author Organization [facility] Address [address] [place] [address] Care Team Providers Care Child Specialist Name Role Phone David Garcia Primary Care Provider Erica Tucker Unavailable [phone] REASON FOR VISIT 4 wk FU Encounters Encounter Location Date Provider Diagnosis [facility] [address] [place], [place] [address] 10/11/2024 Erica Tucker Plan Of Treatment Next Appt Details Provider Name:Erica Ramos ce, 01/19/2025 08:45:00 AM, [address], [place], [address], Progress Notes * Jasmin JORGEDOB:[birth year] (49 yo F)Acc No.[id number]:10/11/2024 Progress Notes Patient: Jasmin SUN Provider: LINDA Rojas :1975 A ge:49 Y S ex:Female Date:10/11/2024 Address:[id number] Pcp:David Garcia Subjective: * Chief Complaints: * 1 . 4 wk FU. * Medical History: Objective: * Vitals: Assessment: Plan: * Treatment: * * Electronic signature of Haleigh Tucker APRN on 12/12/2024 at 08:46 AM EDT Sign off status: Pending * Provider: LINDA Rojas Date: 0 10/11/2024 Generated for Elsie mcnair/Remy/Maikol on: 0 12/12/2024 08:46 AM EDT
--- OUTSIDE RECORDS SUMMARY | 2024-10-24 05:45 | XMS_ITS ---
Author Organization [facility] Address [address] [place] [address] Care Team Providers Care Farm Crew Member Name Role Phone David Garcia Primary Care Provider CaitlinErica umanzor Unavailable [phone] Allergies Allergen (clinical drug ingredient) Drug/Non Drug [...] review and pick correct strength-formulati on from [employer] options. If intended option is not shown, [...] 10/24/2024 Encounters Encounter Location Date Provider Diagnosis [facility] [address] [facility] [address] [place] [address] 10/24/2024 Erica Tucker Mood disorder F39 ; Lumbar disc [...] [address], [place], [address], Progress Notes * Jasmin JORGEDOB:[birth year] (49 yo F)Acc No.[id number]:10/24/2024 Progress Notes Patient: Lisbeth Jasmin CARPENTER Provider: LINDA Rojas :1975 A ge:49 Y S ex:Female Date:10/24/2024 Address:[address] [place] [address] [place], [id number] Pcp:David Garcia Subjective: * Chief Complaints: * [...] She is working now, 2nd shift at [employer], which has been a good thing. Lots [...] stic Procedure: l ipitripsy x 1 , [facility]- Kidney Stone. 03/06/24-03/08. * Family History: F [...] no. Travel outside [place]: no. 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 * Medications: T aking Dicyclomine HCl 20 [...] *Please review and pick correct strength-formulation from [employer] options. If intended option is not shown, [...] 10/24/2024 Generated for Elsie mcnair/Remy/Maikol on: 0 12/12/2024 08:46 AM EDT History and Physical Notes * [...]
--- OUTSIDE RECORDS SUMMARY | 2024-12-05 04:00 | XMS_ITS ---
Author Organization [facility] PE D ABDIFATA[facility] Address [address] [place] [address] Care Team Providers Care Tank Setter Helper Name Role Phone David Garcia Primary Care Provider [phone] Caitlin Erica Unavailable [phone] Allergies Allergen (clinical drug ingredient) Drug/Non Drug [...] review and pick correct strength-formulati on from [employer] options. If intended option is not shown, [...] Signs Temperature 97.9 degrees Fahrenheit 12/06/19 25 Blood pressure systolic 136 mm Hg 12/06/19 25 Blood pressure diastolic 100 mm Hg 025 Heart Rate 92 /min 12/05/2024 Height 5 ft 7 in in 12/05/2024 Weight 243 lbs 12/05/2024 BMI 38.06 kg/m2 12/05/2024 Encounters Encounter Location Date Provider Diagnosis [facility] ABD[facility] [address] [facility] [address] [place], [place] [address] 12/05/2024 Erica Tucker Mood disorder F39 ; [...] weeks, Reason : Provider Name:Erica Ramos ce, 01/19/2025 08:45:00 AM, [address] [facility] [address] [facility], [facility] [address], [place], [address], Progress Notes * Jasmin JORGEDOB:[birth year] (49 yo F)Acc No.[id number]:12/05/2024 Progress Notes Patient: Lisbeth RODRIGUEZ Jasmin HAAS Provider: LINDA Rojas :1975 A ge:49 Y S ex:Female Date:12/05/2024 Address:[address] [place], [place] [id number] Pcp:David Garcia Subjective: * Chief Complaints: * [...] stic Procedure: l ipitripsy x 1 , [facility]- Kidney Stone. 03/06/24-03/08. * Family History: [...] no. Travel outside [place]: no. 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 * Medications: T aking Dicyclomine HCl [...] *Please review and pick correct strength-formulation from [employer] options. If intended option is not shown, [...] Date: 12/05/2024 Generated for Elsie mcnair/Remy/Maikol on: 12/12/2024 08:47 AM EDT History and Physical Notes * [...]
--- NOTE | 2024-12-12 08:44 | XR_ITS ---
FINAL REPORT CLINICAL HISTORY: right hand pain, reoccurring cyst in 1st digit x 2 yrs COMPARISON: 07/06/2024 FINDINGS: RIGHT HAND Three views demonstrate no acute fracture or dislocation. There are mild degenerative changes of the DIP and PIP joints diffusely. There is no evidence of bony destruction. The visualized joint spaces are normally aligned. The soft tissues are unremarkable. IMPRESSION: Degenerative changes without acute bony abnormality. Reviewed, Interpreted and Dictated by Eve Hernandes MD Transcribed by Danielle Alicea Authenticated and . [facility]
--- OUTSIDE RECORDS SUMMARY | 2024-12-12 08:47 | XMS_ITS | Clinical Summary ---
Author Organization [facility] Address [address] [place] [address] Care Team Providers Care Manager Financial Services Name Role Phone Kaya Braden FERMENTER CHAMPAGNE Unavailable Erica Tucker FERMENTER CHAMPAGNE Primary Care Provider [phone] Allergies Active Allergy Reactions Criticality Noted Date [...] COMFORT PAC) 4 MG misc 2 Active Monument 0.65 % nasal spray INSTILL 2 SPRAYS [...] Date Last Done Comments [facility]-Depression Screening 1975 [facility]-Infant/Child/Adol SDOH Screenings 1975 [facility]- SDOH Screenings 1995 [facility]-Adult SDOH Screenings 1995 [facility]-DTaP,Tdap,and Td Vaccines (1 - Tdap) 02/11/1996 [facility]-Hepatitis B Vaccines (1 of 3 - 19+ 3-dose series) 02/11/1996 [facility]-Pap Smear 1998 [facility]-Cervical Cancer Screening 2007 [facility]-HPV/Cotest 2007 CT Colonography 2022 Colonoscopy 2022 FIT-DNA 2022 FIT 2022 FOBT 2022 Sigmoidoscopy 2022 [facility]-Colorectal Cancer Screening 2022 [id number] Vaccine ( season) 2024 04/09/2021, 10/02/2020, 09/04/2020 [facility]-Influenza Vaccine (#1) 01/02/202504/13, 04/09/2021, 06/18/2020, Additional history exists [facility]-Zoster Vaccines (1 of 2) 2027 HPV Vaccines Aged Out No longer eligi ble based on patient's age to complete this topic [facility]-HIB Vaccines Aged Out No longer e ligible based on patient's age to complete this topic [facility]-Hepatitis A Vaccines Aged Out No longer eligible based on patient's age to complete this topic [facility]-IPV Vaccines Aged Out No longer e ligible based on patient's age to complete this topic [facility]-Pneumococcal Vaccine: Pediatrics (0 to 5 Years) and At-Risk Patients (6 to 49 Years) Aged Out No longer eligible based on patient's age to complete this topic [facility]-Rotavirus Vaccines Aged Out No lo nger eligible based on patient's age to complete this topic Insurance [employer] [facility] MEDICAID Care Teams Manager Financial Services Relationship Specialty Start Date End Date Erica Tucker APRN [address] [facility] [address] [facility] [address] [place] [address] PCP - General 09/01/22 Kaya Braden APRN [address] [facility] [address] [place] [address] Nurse Practitioner Neurosurgery 09/01/22
--- OUTSIDE RECORDS SUMMARY | 2024-12-12 08:47 | XMS_ITS | Patient Health Record ---
Author Organization [facility] Address [address] [place] [address] Care Team Providers Care Political Analyst Name Role Phone Chidi Garciahen Primary Care Provider [phone] Erica Tucker Unavailable [phone] Ester Romero Unavailable [phone] Erica Velasquez Unavailable [phone] Migration, Provider Unavailable Unavailable Allergies Allergen (clinical drug ingredient) Drug/Non Drug Allergy documented on EMR Reaction Allergy Type Onset Date Status metoclopramide Reglan shakes Drug Allergy Ac tive nifedipine NIFEdipine swelling Drug Allergy Activ e amoxicillin Amoxicillin hives Drug Allergy Act tmaara ibuprofen Ibuprofen stomach upset Drug Allergy Act tamara Penicillin hives Drug Allergy Active amlodipine amLODIPine swelling Drug Allergy Activ e Results Component Value Reference Range Notes M-Hepatitis C Antibody Reviewed date:07/07/2024 05:35:22 PM Interpretation: Performing Lab: Notes/Report: Rapid Strep Reviewed date:05/18/2024 03:58:58 PM Interpretation:Negative Performing Lab: Notes/Report: Negative X ray : Hand, Left Reviewed date:07/08/2024 11:16:51 AM Interpretation: Performing Lab: Notes/Report: H-TVITD Reviewed date:07/14/2024 09:27:49 AM Interpretation: Performing Lab: Notes/Report: TVITD 23.3 30-100 ng/mL Deficient <20 ng/mL Insufficient 20-30 ng/mL Sufficient 30-100 ng/mL Potential Toxicity >100 ng/mL H-VITB12 Reviewed date:07/11/2024 05:12:18 PM Interpretation: Performing Lab: Notes/Report: VITB12 396 239-931 pg/mL H-FOL Reviewed date:07/11/2024 05:12:14 PM Interpretation: Performing Lab: Notes/Report: FOL 4.17 Normal Adult: 2.76->20 ng/mL Folate Deficent: 1.04-2.79ng/mL COMPREHENSIVE METABOLIC PANE L ([id number]) Reviewed date:04/13/2024 02:47:10 PM Interpretation: Performing Lab:[facility] [place] [email or web address] HospitalWxyjHV[address] [place] Notes/Report: NON-FASTING; NON-FASTING; NON-FASTING GLUCOSE 99 65-99 mg/dL Fasting reference interval UREA NITROGEN (BUN) 12 7-25 mg/dL CREATININE 0.82 0.50-0.99 mg/dL EGFR 89 > OR = 60 mL/min/1.73m2 BUN/CREATININE RATIO SEE NOTE: 6-22 (calc) Not Reported: BUN and Creatinine are within reference range. SODIUM 141 135-146 mmol/L POTASSIUM 3.5 3.5-5.3 mmol/L CHLORIDE 104 98-110 mmol/L CARBON DIOXIDE 27 20-32 mmol/L CALCIUM 9.5 8.6-10.2 mg/dL PROTEIN, TOTAL 7.1 6.1-8.1 g/dL ALBUMIN 4.2 3.6-5.1 g/dL GLOBULIN 2.9 1.9-3.7 g/dL (calc) ALBUMIN/GLOBULIN RATIO 1.4 1.0-2.5 (calc) BILIRUBIN, TOTAL 0.8 0.2-1.2 mg/dL ALKALINE PHOSPHATASE 104 31-125 U/L AST 11 10-35 U/L ALT 11 6-29 U/L CBC (INCLUDES DIFF/PLT) (639 9) Reviewed date:04/13/2024 02:47:10 PM Interpretation: Performing Lab:[facility] [address] [email or web address] HospitalHcclPD[address] [place] Notes/Report: NON-FASTING; NON-FASTING; NON-FASTING WHITE BLOOD CELL COUNT 6.6 3.8-10.8 Thousand/ uL RED BLOOD CELL COUNT 4.12 3.80-5.10 Million/uL HEMOGLOBIN 12.1 11.7-15.5 g/dL HEMATOCRIT 36.8 35.0-45.0 % MCV 89.3 80.0-100.0 fL MCH 29.4 27.0-33.0 pg MCHC 32.9 32.0-36.0 g/dL For adults, a slight decrease in the calculated MCHC value (in the range of 30 to 32 g/dL) is most likely not clinically significant; however, it should be interpreted with caution in correlation with other red cell parameters and the patient's clinical condition. RDW 12.0 11.0-15.0 % PLATELET COUNT 354 140-400 Thousand/uL MPV 9.3 7.5-12.5 fL ABSOLUTE NEUTROPHILS 3247 8532-3092 cells/uL ABSOLUTE LYMPHOCYTES 2508 850-3900 cells/uL ABSOLUTE MONOCYTES 482 200-950 cells/uL ABSOLUTE EOSINOPHILS 343 15-500 cells/uL ABSOLUTE BASOPHILS 20 0-200 cells/uL NEUTROPHILS 49.2 LYMPHOCYTES 38.0 MONOCYTES 7.3 EOSINOPHILS 5.2 BASOPHILS 0.3 LIPASE (606) Reviewed date:04/13/2024 02:47:10 PM Interpretation: Performing Lab:WILLIAM, [place] [id number] [facility], [facility] HospitalIectNT[address] [place] Notes/Report: NON-FASTING; NON-FASTING; NON-FASTING LIPASE 58 7-60 U/L M-RA Latex Turbid. Reviewed date:07/17/2024 10:11:54 AM Interpretation: Performing Lab: Notes/Report: RA <10.0 <14.0 IU/mL Performed at: - [facility] [address] [id number] Occ Ther: Felipe Cortes PhD, Phone: [phone] -Comprehensive Metabolic Pa laureano Reviewed date:07/08/2024 07:07:43 AM Interpretation: Performing Lab: Notes/Report: NA 140 136-145 mmol/L K 4.1 3.5-5.1 mmoL/L CL 106 98-107 mmol/L CO2 28 22.0-30.0 mmol/L GAP 10.1 5-15 mEq/L BUN 14 7-17 mg/dl CREATT 0.80 0.52-1.04 mg/dl GFRAA 93 >60 ML/MIN EGFR 77 >60 ml/min GLU 84 74-100 mg/dl CA 10.0 8.4-10.2 mg/dl BILIT 0.6 0.2-1.3 mg/dl AST 32 14-36 U/L ALT 31 12-78 U/L TP 7.5 6.3-8.2 g/dl ALB 4.7 3.5-5.0 g/dl GLOB 2.8 1.3-3.2 g/dL AGRATIO 1.7 1.1-1.8 ALP 109 38-126 U/L X ray : Hip, Right Reviewed date:07/08/2024 11:18:07 AM Interpretation: Performing Lab: Notes/Report: X ray : Hand, Right Reviewed date:07/08/2024 11:17:44 AM Interpretation: Performing Lab: Notes/Report: M-Complete Blood Count Auto Diff Reviewed date:07/08/2024 11:16:19 AM Interpretation: Performing Lab: Notes/Report: WBC 8.0 4.8-10.8 K/mm3 RBC 4.18 4.20-5.40 M/mm3 HGB 12.3 12.2-16.2 g/dL HCT 37.8 37.0-47.0 % MCV 90.4 81-99 fl MCH 29.4 27.0-31.2 pg MCHC 32.5 31.8-35.4 g/dL RDW 12.6 11.5-17.5 % PLT 360 142-424 K/mm3 MPV 8.9 7.4-10.4 fl NE% 48.1 37.0-80.0 % LY% 41.2 10-50 % MO% 6.1 1.7-9.3 % EO% 4.0 0.1-12.0 % BA% 0.5 0.1-2.0 % NE# 3.8 1.8-7.8 K/mm3 LY# 3.3 0.7-4.5 K/mm3 MO# 0.5 0.1-1.0 K/mm3 EO# 0.3 0.0-0.4 K/mm3 BA# 0.0 0-0.2 K/mm3 M-Erythrocyte Sedimentation Rate Reviewed date:07/07/2024 05:36:07 PM Interpretation: Performing Lab: Notes/Report: ESR 35 0-20 mm/hr M-Hemoglobin A1C Reviewed date:07/07/2024 05:35:31 PM Interpretation: Performing Lab: Notes/Report: HGBA1C 4.4 4.0-6.0 % < 6% Non-Diabetic Level < 7% Controlled Diabetic Level > 8% Poorly Controlled Diabetic Level M-Uric Acid Reviewed date:07/07/2024 05:35:40 PM Interpretation: Performing Lab: Notes/Report: URIC 3.5 2.5-6.2 mg/dl M-Ferritin Reviewed date:07/08/2024 07:07:32 AM Interpretation: Performing Lab: Notes/Report: KONSTANTIN 90.4 6.24-137 ng/ml X-G-Ejuocuvi Protein Reviewed date:07/08/2024 07:08:21 AM Interpretation: Performing Lab: Notes/Report: CRP 8.1 0-4 mg/L M-Thyroid Stimulating Hormon e Reviewed date:07/07/2024 05:35:33 PM Interpretation: Performing Lab: Notes/Report: TSH 1.17 0.465-4.68 uIU/mL X-Tpao-Bgmddmj Antibody Tite r Reviewed date:07/08/2024 11:18:53 AM Interpretation: Performing Lab: Notes/Report: M-RA Latex Turbid. Reviewed date:07/11/2024 02:57:56 PM Interpretation: Performing Lab: Notes/Report: Reason For Referral Reason Mamm at [facility] unable to contact per [facility] Diagnosis 1 Breast cancer screen ing by mammogram (Z12.31) Referral Organization [facility] Referring Provider First Name David Referring Provider Last Name Jose Referring Provider Speciality Internal M edicine Referred Organization [facility] Referred Address [address] [place] [address] [address] [place], [place],[address], Referred Provider Specialty Diagnostic R adiology General Notes Jaki Arthur 04/2024 10:44:36 AM > faxed and they will call herAusten Nickie 06/03/2024 03:55:02 PM >[facility] unable to contact patient- closing referral Referral Priority Routine Reason Colonoscopy please.. . fam his of colon cancer Dr. Lucero Diagnosis 1 Colon cancer screeni ng (Z12.11) Referral Organization [facility] Referring Provider First Name David Referring Provider Last Name Jose Referring Provider Speciality Internal M edicine Referred Organization [facility] Referred Address [address] [facility] [place],[address] Referred Provider Specialty General Surg lex General Notes Jaki Arthur 04/2024 10:45:11 AM > faxed and they will call her, Dedra Boyce 05/12/2024 12:18:51 PM >sent again, Dedra Boyce 06/14/2024 01:11:20 PM >Schedule with Dr. Lucero 07-05-24 Referral Priority Routine Referral Appointment Date 07/05/2024 Reason Please refer to Derm atologist at [facility] for recurrent skin lesions, needs full body skin cancer check. Diagnosis 1 Skin lesions (L98.9) Referral Organization [facility] Referring Provider First Name Erica Referring Provider Last Name Eva [facility] Referred Organization [facility] Referred Address [address] [facility] [place],[address],[place] Referred Provider Specialty Dermatology General Notes Dedra Boyce 2024 03:52:02 PM >Referral sent to Dr. Escalera, Dedra Boyce 07/23/2024 10:14:06 AM > resent Referral Priority Routine Reason Needs colonoscopy at [facility], first available-screening colonoscopy Diagnosis 1 Unspecified abdomina l pain (R10.9) Referral Organization [facility] Referring Provider First Name David Referring Provider Last Name Jose Referring Provider Speciality Internal M edicine Referral Priority Routine Reason Home Sleep study Diagnosis 1 Chronic insomnia (F5 1.04) Referral Organization [facility] Referring Provider First Name Erica Referring Provider Last Name Caitlin Referring Provider Speciality Family Pra ctice Referred Organization [facility] Referred Address [address] [facility] [place],[address],[place] Referred Provider Specialty Sleep Study General Notes Dedra Boyce 2024 04:34:51 PM >sending to [facility] Referral Priority Routine Reason Please refer to [facility] for PT with neck and thoracic back pain. Diagnosis 1 Neck pain (M54.2) Referral Organization [facility] Referring Provider First Name Erica Referring Provider Last Name Eva Referring Provider Speciality Family Pra ctice Referred Organization [facility] Referred Address [address] [facility] [place],[address], Referred Provider Specialty Physical The rapist General Notes Dedra Boyce 2024 09:06:15 AM >sent Referral Priority Routine Medications Medication SIG (Take, Route, Frequency, Duration) Notes Start Date End Date Status Valsartan-hydroCHLOROth iazide 320-25 MG 1 tab(s) orally once a day; Duration: 90 days 03/02/2023 Active Celecoxib 200 mg 1 capsule orally twice a day; Duration: 30 days Active buPROPion HCl ER (XL) 300 MG 1 tablet in the morning Orally Once a day; Duration: 30 days Active Sucralfate 1 GM 1 tab(s) orally 4 times a day (before meals and at bedtime); Duration: 10 days Active Loratadine 10 MG 1 tab(s) orally once a day; Duration: 30 days 05/18/2024 Active Fluticasone Propionate 50 MCG/ACT 1 spray(s) in each nostril twice daily; Duration: 30 days 06/22/2024 Active Cholecalciferol 50 MCG 1 TAB(S) ORALLY ONCE A DAY; Duration: 30 DAYS *Please review and pick correct strength-formulati on from Sibaritus options. If intended option is not shown, discontinue and re-order from Quick Search* 07/12/2024 Active Farxiga 5 MG 1 tablet Orally Once a day; Duration: 30 days 12/05/2024 Active Cyclobenzaprine HCl 10 MG 1 tablet at bedtime as needed for muscle spasm Orally 3 times a day; Duration: 30 days 10/24/2024 Active Dicyclomine HCl 20 MG 1 tab(s) orally 4 times a day PRN Active Carvedilol 6.25 mg TAKE ONE TABLET BY MOUTH TWICE DAILY; Duration: 30 Active Pantoprazole Sodium 40 MG 1 tab(s) orally once a day Active Sertraline HCl 100 mg TAKE ONE TABLET BY MOUTH EVERY DAY; Duration: 30 Active Ondansetron HCl 4 MG 1 tab(s) orally every 8 hours Active hydrOXYzine Pamoate 50 MG as directed orally as directed; Duration: 30 days Active Immunizations Vaccine Route Administration Date Status Comme nts Flublok IM Intramuscular 04/13/2024 Administered Social History Tobacco Use: Social History Observation Description Date Details (start date - stop date) Former Smoker NA - NA Smoking: Question Answer Notes Are you a: former smoker How long has it been since you last smoked? > 10 years Problems Problem Type SNOMED Code ICD Code Onset Dates Problem Status W/U Status Risk Notes Problem Anxiety (14720837) Anxiety (F41.9) Active confi rmed Problem Sore throat (752237582) Sore throat (J02.9) Active confirmed Problem Morbid obesity (575861709) Morbid obesity (E66.01) Active confirmed Problem Essential hypertension (12949560) Essential hypertension (I10) Active confirmed Problem Gastroesophageal reflux disease (835438012) GERD without esophagitis (K21.9) Active confirmed Problem Body mass index 40+ - morbidly obese (644835626) BMI 40.0-44.9, adult (Z68.41) Active confirmed Problem Chronic pain (48211607) Other chronic pain (G89.29) Active confirmed Problem Neck pain (52704705) Neck pain (M54.2) Active confirmed Problem Tension headache (111600202) Tension headache (G44.209) Active confirmed Problem Chronic insomnia (723629853) Chronic insomnia (F51.04) Active confirmed Problem Fatty liver (028161977) Fatty liver (K76.0) Active confirmed Problem Mood disorder (34687789) Mood disorder (F39) Active confirmed Problem Skin sensation disturbance (32201287) Paresthesia of both feet (R20.2) Active confirmed Problem Generalized anxiety disorder (00680327) MADHAV (generalized anxiety disorder) (F41.1) Active confirmed Problem Neutrophilic leukocytosis (381143773) Neutrophilic leukocytosis (D72.9) Active confirmed Problem Sciatica (84379095) Acute left-sided low back pain with left-sided sciatica (M54.42) Active confirmed Problem Leukocytosis (048020167) Leukocytosis, unspecified (D72.829) Active confirmed Problem Amnesia (87203579) Memory change s (R41.3) Active confirmed Problem Type II diabetes mellitus without complication (123829742) Controlled type 2 diabetes mellitus without complication, without long-term current use of insulin (E11.9) Active confirmed Problem Seasonal allergic rhinitis (037680575) Seasonal allergic rhinitis, unspecified trigger (J30.2) Active confirmed Problem Type II diabetes mellitus without complication (904013756) New onset type 2 diabetes mellitus (E11.9) Active confirmed Problem Disorder of lumbar disc (694873307) Lumbar disc disease (M51.9) Active confirmed Problem Cough (83322237) Cough (R05.9) Active confirmed Vital Signs Heart Rate 92 /min 12/05/2024 Temperature 97.9 degrees Fahrenheit 12/05/2024 Blood pressure diastolic 100 mm Hg 12/05/2024 Height 5 ft 7 in in 12/05/2024 Blood pressure systolic 136 mm Hg 12/05/2024 Weight 243 lbs 12/05/2024 BMI 38.06 kg/m2 12/05/2024 Encounters Encounter Location Date Provider Diagnosis [facility] [address] [place] [facility] [address] [place] [address] 08/06/2024 Provider Migration [facility] [address] [address] 02/19/2024 Ester Romero Essential (primary) hypertension I10 ; MADHAV (generalized anxiety disorder) F41.1 ; Lumbar disc disease M51.9 ; Chronic insomnia F51.04 and Arthralgia of multiple joints M25.50 [facility] [address] [place] [address] 03/03/2024 Ester Romero Acute cystitis with hematuria N30.01 ; Acute left-sided low back pain with left-sided sciatica M54.42 ; Essential hypertension I10 and Mood disorder F39 [facility] [address] [place] [address] 04/06/2024 David Garcia Acute abdominal pain R10.9 [facility] [address] [place] [address] 04/13/2024 Davidphilippe Garcia Acute abdominal pain R10.9 ; Breast cancer screening by mammogram Z12.31 ; Colon cancer screening Z12.11 ; Immunization(s) administered Z23 and Routine medical exam Z00.00 [facility] [address] [place] [address] 05/05/2024 Erica Velasquez Acute suppurative otitis media of right ear without spontaneous rupture of tympanic membrane, recurrence not specified H66.001 and Acute URI J06.9 [facility] [address] [place] [address] 05/18/2024 Erica Velasquez Skin lesions L98.9 ; Sore throat J02.9 and Right acute serous otitis media, recurrence not specified H65.01 [facility] [address] [place] [address] 06/22/2024 David Garcia Seasonal allergic rhinitis, unspecified trigger J30.2 ; MADHAV (generalized anxiety disorder) F41.1 ; Unspecified abdominal pain R10.9 and Other chronic pain G89.29 [facility] [place] [address] [address] 07/06/2024 Erica Caitlin Pain in right hand M79.641 ; Pain in left hand M79.642 ; Right hip pain M25.551 ; Memory changes R41.3 ; Controlled type 2 diabetes mellitus without complication, without long-term current use of insulin E11.9 and Chronic insomnia F51.04 [facility] [address] [place] [address] 08/11/2024 Erica Donnellyell Neck pain M54.2 ; Essential (primary) hypertension I10 and MADHAV (generalized anxiety disorder) F41.1 [facility] [address] [place] [address] 09/13/2024 Erica Caitlin Mood disorder F39 ; Lumbar disc disease M51.9 ; Other chronic pain G89.29 and Tension headache G44.209 [facility] [address] [place] [address] 10/24/2024 Erica Caitlin Mood disorder F39 ; Lumbar disc disease M51.9 and Other chronic pain G89.29 [facility] [address] [place] [address] 12/05/2024 Erica Caitlin Mood disorder F39 ; Controlled type 2 diabetes mellitus without complication, without long-term current use of insulin E11.9 ; Lumbar disc disease M51.9 ; Other chronic pain G89.29 and Essential hypertension I10 [facility] [place] [address] [address] 04/14/2024 David Garcia Breast cancer screening by mammogram Z12.31 [facility] [address] [place] [address] 05/05/2024 David Rasmussenson [facility] [address] [place] [address] 07/12/2024 Erica Tucker [facility] [address] [place] [address] 08/11/2024 Erica Velasquez MADHAV (generalized anxiety disorder) F41.1 [facility] [address] [place] [address] 08/12/2024 David Garcia Neck pain M54.2 and Back pain M54.9 [facility] [address] [facility] [address] [place] [address] 09/13/2024 Erica Tucker Neck pain M54.2 and Back pain M54.9 [facility] [address] [facility] [address] [place] [address] 10/24/2024 David Garcia [facility] [place] [address] [address] 11/10/2024 Erica Tucker Essential (primary) hypertension I10 and MADHAV (generalized anxiety disorder) F41.1 Assessments Encounter Date Diagnosis (ICD Code) Assessment Notes Treatment Notes Treatment Clinical Notes Section Notes 08/11/2024 Essential (primary) hypertension (ICD-10 - I10) Very anxious today in clinic and improved once daughter left the room per my personal check. Reviewed s/s of hypertensive urgency/emergenc y and to seek care if they develop. Continue current medication regimen. Follow-up in 1 week or sooner if needed. 08/11/2024 Neck pain (ICD-10 - M54.2) Discussed the etiology and expected course of back pain related to muscle spasm/strain. Discussed the role of pain medications/anti -inflammatories including Ibuprofen and Tylenol, heat pad, stretches, and to walk 30 mins a day. PRN muscle relaxer and PO steroid ordered. Counseled patient to not drive when taking this medication. Discussed signs and symptoms of worsening condition that may warrant reassessment in clinic or ED. PT ordered. I personally will review x-ray report once final. Patient and family voice understanding and agree with the plan of care above. 05/18/2024 Skin lesions (ICD-10 - L98.9) At patient request with multiple tiny dry scabbed lesions, have placed Dermatology referral. 06/22/2024 MADHAV (generalized anxiety disorder) (ICD-10 - F41.1) Overall doing well, stable on sertraline. No changes in plan 06/22/2024 Seasonal allergic rhinitis, unspecified trigger (ICD-10 - J30.2) Some postnasal drainage. 07/06/2024 Pain in right hand (ICD-10 - M79.641) some concern for inflammatory arthritis given her morning stiffness, mild synovitis on exam, suspected hip bursitis. Rec labs and imaging as noted. Continue celebrex. Additional treatment or referrals based on results 07/06/2024 Pain in left hand (ICD-10 - M79.642) 08/11/2024 MADHAV (generalized anxiety disorder) (ICD-10 - F41.1) 08/12/2024 Neck pain (ICD-10 - M54.2) 09/13/2024 Mood disorder (ICD-10 - F39) She has been on multiple psychotropics in the past and has been seen previously by behavioral health. Does not recall ever trying Wellbutrin and is willing to do so. Recommend continue Zoloft but add Wellbutrin every morning. Possible side effects and return precautions reviewed. Will reach out to the therapy department again about getting her set up for PT to help with her chronic back pain. Hopefully things will help with her tension headaches as well. 09/13/2024 Lumbar disc disease (ICD-10 - M51.9) 10/24/2024 Mood disorder (ICD-10 - F39) Some improvement overall, increase Wellbutrin to 300 mg once a day. Continue her other current regimen, return precautions reviewed 10/24/2024 Lumbar disc disease (ICD-10 - M51.9) May take Celebrex twice a day as needed and increase as needed dosing of cyclobenzaprine. Possible side effects and return precautions were reviewed as well 11/10/2024 Essential (primary) hypertension (ICD-10 - I10) 09/13/2024 Neck pain (ICD-10 - M54.2) 12/05/2024 Mood disorder (ICD-10 - F39) continue [...] help to lower her BP as well. 02/19/2024 Essential (primary) hypertension (ICD-10 - I10) Restart valsartan/HCTZ. RTC in 1 week for b/p check and labs 02/19/2024 MADHVA (generalized anxiety disorder) (ICD-10 - F41.1) Restart SSRI. Instructed to take 1/2 tab x 7 days then increase to 1 tab. Discussed rationale for pharmacotherapy, and discussed MOA of med. Discussed time course of expected improvements, and discussed side effect profile and need for urgent evaluation if agitation or worsening mood occurs. Discussed need for f/u in office. 03/03/2024 Acute cystitis with hematuria (ICD-10 - N30.01) [facility] records reviewed. Urine cx prelim- gram - rods 03/03/2024 Acute left-sided low back pain with left-sided sciatica (ICD-10 - M54.42) Rest, warm compresses, prednisone, methocarbamol prn. Will re-evaluate at FU in 2 weeks 04/06/2024 Acute abdominal pain (ICD-10 - R10.9) Time frame still concerning for unresolved gastroenteritis, so will prescribe Karafate for additional symptomatic relief and repeat labs today given decreased PO intake. Continue heating pad and pain medicines as needed / if desired. If symptoms do not resolve in the next week, she may need further evaluation with EGD/colonoscopy (concern on prev CT A/P for SBO from scarring, possibly from adhesions). 04/13/2024 Acute abdominal pain (ICD-10 - R10.9) Continue supportive care with Carafate, etc. Patient agreeable to beginning to space out this medication. If problem lingers to next visit, still may need to consider further investigation with EGD/colonoscopy. 04/13/2024 Breast cancer screening by mammogram (ICD-10 - Z12.31) 04/14/2024 Breast cancer screening by mammogram (ICD-10 - Z12.31) 05/05/2024 Acute URI (ICD-10 - J06.9) Reassurance. Discussed the etiology & expected course of a viral URI. Continue supportive care with PRN antipyretics, OTC cough/cold meds, nasal saline rinses/Neti pot with distilled water, salt water gargles, cough drops, and humidifier. Encourage PO hydration. Discussed the signs and symptoms of worsening condition and need for reassessment in clinic or ED. Keep previously scheduled physical exam or f/u sooner PRN. Patient/family voice understanding and are agreeable to this plan. 05/05/2024 Acute suppurative otitis media of right ear without spontaneous rupture of tympanic membrane, recurrence not specified (ICD-10 - H66.001) Reaction of rash to pcn, will give cefdinir. Determined to have otitis media from physical examination findings above. Prescription written for antibiotic above. Return precautions discussed. All questions answered. 05/18/2024 Sore throat (ICD-10 - J02.9) 05/18/2024 Right acute serous otitis media, recurrence not specified (ICD-10 - H65.01) No active infection. Flonase bid x 7 days then once daily, continue antihistamine. Follow-up if develops fever, pain, hearing loss, worsening symptoms, or no improvement in a week. Warm compress to right neck. 03/03/2024 Essential hypertension (ICD-10 - I10) Restart coreg, b/p check in 2 weeks 12/05/2024 Lumbar disc disease (ICD-10 - M51.9) May take Celebrex twice a day as needed and continue cyclobenzaprine. Possible side effects and return precautions were reviewed as well 10/24/2024 Other chronic pain (ICD-10 - G89.29) 11/10/2024 MADHAV (generalized anxiety disorder) (ICD-10 - F41.1) 09/13/2024 Back pain (ICD-10 - M54.9) 09/13/2024 Other chronic pain (ICD-10 - G89.29) 08/12/2024 Back pain (ICD-10 - M54.9) 07/06/2024 Right hip pain (ICD-10 - M25.551) 06/22/2024 Unspecified abdominal pain (ICD-10 - R10.9) Better with Carafate. Colonoscopy did not get scheduled. We will make this referral once again. I will see her in 3 months 04/13/2024 Colon cancer screening (ICD-10 - Z12.11) 02/19/2024 Lumbar disc disease (ICD-10 - M51.9) Celebrex as below. Stretches, warm compresses, muscle relaxer prn 08/11/2024 MADHAV (generalized anxiety disorder) (ICD-10 - F41.1) Increased Zoloft as above and discussed for patient to take 0.5 tab to 1 tap Hydroxyzine during the day PRN for anxiety. Denies SI/HI. Follow-up in 1 week or sooner if needed. Patient voices understanding and agrees with the plan of care above. 12/05/2024 Other chronic pain (ICD-10 - G89.29) 04/13/2024 Immunization(s) administered (ICD-10 - Z23) 06/22/2024 Other chronic pain (ICD-10 - G89.29) 07/06/2024 Memory changes (ICD-10 - R41.3) discussed that this is often related to poor sleep, poorly controlled depression and/or anxiety symptoms. Rec labs, home sleep study. Consider brain imaging and/or referral pending those results/symptoms 09/13/2024 Tension headache (ICD-10 - G44.209) 02/19/2024 Chronic insomnia (ICD-10 - F51.04) Restart hydroxyzine at HS, start with 1 tab QHS x 7 days then increase to 2 if insomnia persists 03/03/2024 Mood disorder (ICD-10 - F39) Stable on current regimen. No changes made today 04/13/2024 Routine medical exam (ICD-10 - Z00.00) Patient needs colonoscopy given family history of colon cancer. Asymptomatic but not a candidate for Cologuard given her family history. This will be scheduled. Also needs mammogram, has never had 1. Needs flu shot, this is given today. Otherwise doing well, non-smoker. Continue medicines for abdominal pain 02/19/2024 Arthralgia of multiple joints (ICD-10 - M25.50) Start celebrex. Will re-evaluate symptoms at FU 12/05/2024 Essential hypertension (ICD-10 - I10) plans to reschedule cardiology FU 07/06/2024 Controlled type 2 diabetes mellitus without complication, without long-term current use of insulin (ICD-10 - E11.9) 07/06/2024 Chronic insomnia (ICD-10 - F51.04) 08/11/2024 Other Patient discussed with Attending Dr. Garcia who agrees with the plan of care above. Plan Of Treatment Pending Test Test Name Order Date X ray : Spines, Lumbosacral 11/28/2021 X ray : Spines, Cervical 08/11/2024 X ray : Spines, Thoracic Spine CT Scan : Abdomen/Pelvis stone protocol 08/20/2022 Mammogram : Bilateral 04/14/2024 Dietary Consult 06/23/2022 M-Comprehensive Metabolic Panel 10/17/19 23 M-Hemoglobin A1C 10/16/2022 M-Hemoglobin A1C 03/02/2023 M-Thyroid Stimulating Hormone 03/02/2023 M-Vitamin B12 03/02/2023 M-Vitamin B12 07/06/2024 M-Vitamin D 25 Hydroxy 07/06/2024 M-Folate 07/06/2024 M-Folate 03/02/2023 T-Ldnm-Skhsvs Citrullinated Pept 025 M-Microalb/Creat Ratio, Randm Ur 023 Comprehensive Metabolic Panel (CMP) 06/2021 Physical Therapy Eval and Treat 08/13/19 25 Physical Therapy Eval and Treat 09/14/19 25 Next Appt Details Provider Name:Erica Ramos ce, 01/19/2025 08:45:00 AM, [address], [address], [place], [address], Insurance Providers Payer Name Payer Address Payer Phone Subscriber Number Group Number Insured Name Patient Relationship to Insured Coverage Start Date Coverage End Date [employer] [facility] [address] [address] [place] [address] [id number] Jasmin Zamorano Self - patient is the insured Medications Administered Medication Instructions Date of Administration Dosage Notes Dexamethasone 4mg Injection 07/01/2022 4 mg Medical (General) History Medical History History ICD Code PTSD herniated disc muscle spasms HTN Fatty liver disease Kidney stones Kidney Stone 7mm. Currently has a 6mm pr esent Surgical History Surgery Date(Month/Year) cholecystectomy 2002 tonsillectomy hysterectomy 2002 appendectomy 2002 liprotripsy x 6 cyst 06/24/23 Lithotripsy x1 removal of 7mm Kidney Sto ne. Stent Placed 03/23/24 Kidney Stent Removed 03/29/24 cyst removal from thumb 09/2024 Hospitalization History Reason Date(Month/Year) [facility]- Kidney Stone. 07/25-03/08 lipitripsy x 1
--- OUTSIDE RECORDS SUMMARY | 2024-12-12 08:47 | XMS_ITS | Encounter Summary ---
Author Organization [facility] Address [address] [place] [address] Care Team Providers Care Pad Extraction Tender Name Role Phone Mahesh Horton MD Primary Care Provider [phone] Kaya Braden N[employer]ANT TECHNICAL ADVISOR Unavailable [phone] Erica Tucker APRN Primary Care Provider [phone]- [phone] Encounter Details Date Type Department Care Team (Latest Contact Info) Description 11/08/2021 Community [facility] [address] [place] [address] Zee Avery, PA [address] [facility] [place] [address] Lumbar radiculopathy (Primary Dx) Social [...] unspecified documented in this encounter Care Teams Pad Extraction Tender Relationship Specialty Start Date End Date Mahesh Horton MD [address] [place] [address] PCP - General 09/14/20 08/31/22 Erica Tucker APRN [address] [facility] [address] [facility] [address] [place] [address] PCP - General 09/01/22 Kaya Braden APRN [address] [facility] [address] [place] [id number] Nurse Practitioner Neurosurgery 09/01/22 documented as of this encounter
== END 2024-12-12 23:59 | disposition home or self-care (01) ==
LOC: RAD 08:43
PROVIDERS: PCP Nurse Practitioner Family; Visit Provider Orthopaedic Surgery
DX: M19.041 Primary osteoarthritis, right hand (principal)
CPT/HCPCS: 73130

== ENCOUNTER 2024-12-23 11:14 | Outpatient (CLI) | payer OTHER, SELFPAY ==
--- OUTSIDE RECORDS SUMMARY | 2024-10-11 05:00 | XMS_ITS ---
Author Organization [facility] Address [address] [place] [address] Care Team Providers Care Non Clinical Advisor Name Role Phone David Garcia Primary Care Provider Erica Tucker Unavailable [phone] REASON FOR VISIT 4 wk FU Encounters Encounter Location Date Provider Diagnosis [facility] [address] [place], [place] [address] 10/11/2024 Erica Tucker Plan Of Treatment Next Appt Details Provider Name:Erica Ramos ce, 01/19/2025 08:45:00 AM, [address], [address], [place], [address], Progress Notes * Jasmin JORGEDOB:[birth year] (49 yo F)Acc No.[id number]:10/11/2024 Progress Notes Patient: Jasmin SUN Provider: LINDA Rojas :1975 A ge:49 Y S ex:Female Date:10/11/2024 Address:[id number] Pcp:David Garcia Subjective: * Chief Complaints: * 1 . 4 wk FU. * Medical History: Objective: * Vitals: Assessment: Plan: * Treatment: * * Electronic signature of Haleigh Tucker APRN on 12/23/2024 at 11:16 AM EDT Sign off status: Pending * Provider: LINDA Rojas Date: 0 10/11/2024 Generated for Elsie mcnair/Remy/Maikol on: 0 12/23/2024 11:16 AM EDT
--- OUTSIDE RECORDS SUMMARY | 2024-10-24 05:45 | XMS_ITS ---
Author Organization formerly [facility] Address [address] [place] [address] Care Team Providers Care Manager English Name Role Phone David Garcia Primary Care Provider CaitlinErica umanzor Unavailable [phone] Allergies Allergen (clinical drug ingredient) Drug/Non Drug Allergy documented on EMR Reaction Allergy Type Onset Date Status metoclopramide Reglan shakes Drug Allergy Ac tive nifedipine NIFEdipine swelling Drug Allergy Activ e amoxicillin Amoxicillin hives Drug Allergy Act tamara ibuprofen Ibuprofen stomach upset Drug Allergy Act tamara Penicillin hives Drug Allergy Active amlodipine amLODIPine swelling Drug Allergy Activ e REASON FOR VISIT Follow up on medication Medications Medication SIG (Take, Route, Frequency, Duration) Notes Start Date End Date Status hydrOXYzine Pamoate 50 MG as directed orally as directed; Duration: 30 days Active Sertraline HCl 100 mg TAKE ONE TABLET BY MOUTH EVERY DAY; Duration: 30 Active Cholecalciferol 50 MCG 1 TAB(S) ORALLY ONCE A DAY; Duration: 30 DAYS *Please review and pick correct strength-formulati on from [employer] options. If intended option is not shown, discontinue and re-order from Quick [employer]* 07/12/2024 Active Carvedilol 6.25 mg TAKE ONE TABLET BY MOUTH TWICE DAILY; Duration: 30 Active Valsartan-hydroCHLOROth iazide 160-25 MG 1 tab(s) orally once a day; Duration: 90 days 03/02/2023 Active Loratadine 10 MG 1 tab(s) orally once a day; Duration: 30 days 05/18/2024 Active buPROPion HCl ER (XL) 300 MG 1 tablet in the morning Orally Once a day; Duration: 30 days 10/24/2024 Active Cyclobenzaprine HCl 10 MG 1 tablet at bedtime as needed for muscle spasm Orally 3 times a day; Duration: 30 days 10/24/2024 Active Fluticasone Propionate 50 MCG/ACT 1 spray(s) in each nostril twice daily; Duration: 30 days 06/22/2024 Active Ondansetron HCl 4 MG 1 tab(s) orally every 8 hours Active Pantoprazole Sodium 40 MG 1 tab(s) orally once a day Active Sucralfate 1 GM 1 tab(s) orally 4 times a day (before meals and at bedtime); Duration: 10 days Active Celecoxib 200 mg 1 capsule orally twice a day; Duration: 30 days Active Dicyclomine HCl 20 MG 1 tab(s) orally 4 times a day PRN Active Social History Tobacco Use: Social History Observation Description Date Details (start date - stop date) Former Smoker NA - NA Smoking: Question Answer Notes Are you a: former smoker How long has it been since you last smoked? > 10 years Vital Signs Temperature 97.6 degrees Fahrenheit 10/25/19 25 Blood pressure systolic 136 mm Hg 10/25/19 25 Blood pressure diastolic 92 mm Hg 025 Heart Rate 80 /min 10/24/2024 Height 5 ft 7 in in 10/24/2024 Weight 240 lbs 10/24/2024 BMI 37.59 kg/m2 10/24/2024 Encounters Encounter Location Date Provider Diagnosis [facility] [address] [facility] [address] [place] [address] 10/24/2024 rEica Tucker Mood disorder F39 ; Lumbar disc disease M51.9 and Other chronic pain G89.29 Assessments Encounter Date Diagnosis (ICD Code) Assessment Notes Treatment Notes Treatment Clinical Notes Section Notes 10/24/2024 Mood disorder (ICD-10 - F39) Some improvement overall, increase Wellbutrin to 300 mg once a day. Continue her other current regimen, return precautions reviewed 10/24/2024 Lumbar disc disease (ICD-10 - M51.9) May take Celebrex twice a day as needed and increase as needed dosing of cyclobenzaprine. Possible side effects and return precautions were reviewed as well 10/24/2024 Other chronic pain (ICD-10 - G89.29) Plan Of Treatment Medication Medication Name Sig Start Date Stop Date Notes buPROPion HCl ER (XL) 300 MG 1 tablet in the morning Orally Once a day; Duration: 30 days 10/24/2024 Cyclobenzaprine HCl 10 MG 1 tablet at be dtime as needed for muscle spasm Orally 3 times a day; Duration: 30 days 10/24/2024 buPROPion HCl ER (XL) 150 MG 1 tablet in the morning Orally Once a day 09/13/2024 Cyclobenzaprine HCl 5 MG as directed Ora lly every 8 hours 08/11/2024 Celecoxib 200 mg 1 capsule orally twi ce a day; Duration: 30 days Next Appt Details Follow Up: 6 Weeks, Reason: Provider Name:Erica Ramos , 01/19/2025 08:45:00 AM, [address], [place], [address], Progress Notes * Jasmin JORGEDOB:[birth year] (49 yo F)Acc No.[id number]:10/24/2024 Progress Notes Patient: Lisbeth Jasmin CARPENTER Provider: LINDA Rojas :1975 A ge:49 Y S ex:Female Date:10/24/2024 Address:[address] [place] [address] [place], [id number] Pcp:David Garcia Subjective: * Chief Complaints: * 1 . Follow up on medication. * HPI: P sychology: 49-year-old female presents today to FU since we added wellbutrin to help with management of mood symptoms. She does think it has helped her malaise and anhedonia. No side effects. She still isn't sleeping well but reports that hydroxyzine has been more helpful than anything else she has tried previously (trazodone, amitriptyline, etc). She is working now, 2nd shift at [employer], which has been a good thing. Lots of activity, consistent schedule. She would like to address her back pain which has been a little better overall but with some lower extremity pain going up and down stairs at work and spending most of her shift on her feet. Did not go to PT following out last visit. 49 year old female presents with c/o low energy level. c/o depressed mood. c/o feeling overwhelmed. c/o Anhedonia. Denies : thoughts of hurting self. D enies : hallucinations. * ROS: C ONSTITUTIONAL: See HPI Y es. D ERMATOLOGY: no R ibrahima. G ASTROENTEROLOGY: Reviewed, No Symptoms Reported: Y es. M USCULOSKELETAL: back pain y es. U ROLOGY: Reviewed, No Symptoms Reported: Y es. * Medical History: P TSD, Herniated disc, Muscle spasms, HTN, Fatty liver disease, Kidney stones, Kidney Stone 7mm. Currently has a 6mm present. * Surgical History: c holecystectomy 2002, tonsillectomy , hysterectomy 2002, appendectomy 2002, liprotripsy x 6 , cyst 06/24/23, Lithotripsy x1 removal of 7mm Kidney Stone. Stent Placed 03/23/24, Kidney Stent Removed 03/29/24. * Hospitalization/Major Diagno stic Procedure: l ipitripsy x 1 , [facility]- Kidney Stone. 03/06/24-03/08. * Family History: F ather: alive. M other: alive. P aternal Grand Father: . P aternal Grand Mother: . M aternal Grand Father: . M aternal Grand Mother: . P aternal uncle: alive. P aternal aunt: alive. M aternal aunt: alive. S iblings: alive, one brother-unknown. C hildren: alive. 1 brother(s) , 1 sister(s) - healthy. 1 son(s) , 3 daughter(s) - healthy. . * Social History: S moking A re you a: f ormer smoker, H ow long has it been since you last smoked??> 10 years. R ecreational drug use: no. Exercise: yes. Home smoke detector use: yes. Caffeine: yes, frequency:tea. Living Will: No. Alcohol: no. Travel outside [place]: no. 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 * Medications: T aking Dicyclomine HCl 20 MG Tablet 1 tab(s) orally 4 times a day , Notes to Pharmacist: PRN, Taking Pantoprazole Sodium 40 MG Tablet Delayed Release 1 tab(s) orally once a day , Taking Ondansetron HCl 4 MG Tablet 1 tab(s) orally every 8 hours , Taking Sucralfate 1 GM Tablet 1 tab(s) orally 4 times a day (before meals and at bedtime) , Taking Loratadine 10 MG Tablet 1 tab(s) orally once a day , Taking Fluticasone Propionate 50 MCG/ACT Suspension 1 spray(s) in each nostril twice daily , Taking Cholecalciferol 50 MCG TABLET 1 TAB(S) ORALLY ONCE A DAY , Notes to Pharmacist: *Please review and pick correct strength-formulation from [employer] options. If intended option is not shown, discontinue and re-order from Quick Search*, Taking Cyclobenzaprine HCl 5 MG Tablet as directed Orally every 8 hours As needed muscle spasm, can increase to two tablets every 8 hours if needed for muscle spasm., Taking Valsartan-hydroCHLOROthiazide 160-25 MG Tablet 1 tab(s) orally once a day , Taking Carvedilol 6.25 mg Tablet TAKE ONE TABLET BY MOUTH TWICE DAILY , Taking Celecoxib 200 mg Capsule TAKE ONE CAPSULE BY MOUTH EVERY DAY , Taking buPROPion HCl ER (XL) 150 MG Tablet Extended Release 24 Hour 1 tablet in the morning Orally Once a day , Taking Sertraline HCl 100 mg Tablet TAKE ONE TABLET BY MOUTH EVERY DAY , Taking hydrOXYzine Pamoate 50 MG Capsule as directed orally as directed , Medication List reviewed and reconciled with the patient * Allergies: a mLODIPine: swelling, Ibuprofen: stomach upset, Amoxicillin: hives, Reglan: shakes, Penicillin: hives, NIFEdipine: swelling. Objective: * Vitals: N urse: be, Pain: 8, Temp: 97.6, RR: 18, HR: 80, BP: 136/92, Ht: 5 ft 7 in, Wt: 240, BMI:37.59. * Examination: P sychology: General Appearance: N AD, pleasant. Grooming : a dequate. Eye contact : n ormal. Mood : p leasant. Heart: R egular Rate and Rhythm, no murmur, rubs or gallops. Lungs: L CTAB, No wheezes, crackles or rhonchi, Good air movement,. Assessment: * Assessment: 1. M ood disorder - F39 (Primary) 2 . L umbar disc disease - M51.9 ? 3 . O ther chronic pain - G89.29 Plan: * Treatment: 2. L umbar disc disease Stop Cyclobenzaprine HCl Tablet, 5 MG, as directed, Orally, every 8 hours As needed muscle spasm, can increase to two tablets every 8 hours if needed for muscle spasm.; C ontinue Celecoxib Capsule, 200 mg, 1 capsule, orally, twice a day, 30 days, 60 Capsule, Refills 5; S tart Cyclobenzaprine HCl Tablet, 10 MG, 1 tablet at bedtime as needed for muscle spasm, Orally, 3 times a day, 30 days, 90 Tablet, Refills 1. Clinical Notes: May take Celebrex twice a day as needed and increase as needed dosing of cyclobenzaprine. Possible side effects and return precautions were reviewed as well * Follow Up: 6 Weeks * * Sign off status: Completed true * Provider: LINDA Rojas Date: 10/24/2024 Generated for Elsie mcnair/Remy/Maikol on: 0 12/23/2024 11:16 AM EDT History and Physical Notes * HPI (History of Present Illness) Category Sub-Category Detail Notes Category Not es Psychology depressed mood low energy level feeling overwhelmed thoughts of hurting self hallucinations Anhedonia Examination Category Sub-Category Detail Notes Category Not es Psychology Heart: Regular Rate and Rhythm, no murmur, rubs or gallops Lungs: LCTAB, No wheezes, c rackles or rhonchi, Good air movement, General Appearance: NAD, pleasant Grooming : adequate Eye contact : normal Mood : pleasant
--- OUTSIDE RECORDS SUMMARY | 2024-12-05 04:00 | XMS_ITS ---
Author Organization [facility] PE D ABDIFATA[facility] Address [address] [place] [address] Care Team Providers Care Production Repairer Name Role Phone David Garcia Primary Care Provider [phone] Caitlin Erica Unavailable [phone] Allergies Allergen (clinical drug ingredient) Drug/Non Drug [...] review and pick correct strength-formulati on from [employer] options. If intended option is not shown, [...] 12/05/2024 Encounters Encounter Location Date Provider Diagnosis [facility] [address] [facility] [address] [place], [place] [address] 12/05/2024 Erica Tucker Mood disorder F39 ; [...] Ramos ce, 01/19/2025 08:45:00 AM, [address] [place] [facility] [address] [facility], [facility] [address], [place], [address], Progress Notes * Jasmin JORGEDOB:[birth year] (49 yo F)Acc No.[id number]:12/05/2024 Progress Notes Patient: Lisbeth RODRIGUEZ Jasmin HAAS Provider: LINDA Rojas :1975 A ge:49 Y S ex:Female Date:12/05/2024 Address:[address] [place], [place] [id number] Pcp:David Garcia Subjective: * Chief Complaints: * [...] l ipitripsy x 1 , [facility]- Kidney Stone. 03/06/24-03/08. * Family History: F [...] Alcohol: no. Travel outside [place]: no. 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 * Medications: T aking Dicyclomine HCl [...] *Please review and pick correct strength-formulation from [employer] options. If intended option is not shown, [...] Date: 12/05/2024 Generated for Elsie mcnair/Remy/Maikol on: 12/23/2024 11:17 AM EDT History and Physical Notes * [...]
[2024-12-23 08:03] VITALS: BMI 39.9
--- OUTSIDE RECORDS SUMMARY | 2024-12-23 11:17 | XMS_ITS | Patient Health Record ---
Author Organization [facility] Address [address] [place] [address] Care Team Providers Care Integration Lead Name Role Phone David Garcia Primary Care Provider Erica Tucker Unavailable [phone] Ester Romero Unavailable [phone] Erica Velasquez Unavailable [phone] Migration, Provider Unavailable Unavailable Allergies Allergen (clinical [...] e Results Component Value Reference Range Notes M-Comprehensive Metabolic Pa laureano Reviewed date:07/08/2024 07:07:43 AM [...] AGRATIO 1.7 1.1-1.8 ALP 109 38-126 U/L M-RA Latex Turbid. Reviewed date:07/17/2024 10:11:54 AM Interpretation: Performing Lab: Notes/Report: RA <10.0 <14.0 IU/mL Performed at: [address] [id number] Welder Assistant: Felipe Cortes PhD, Phone: [phone] X ray : Hip, Right Reviewed date:07/08/2024 11:18:07 AM Interpretation: Performing Lab: Notes/Report: X ray : Hand, Left Reviewed date:07/08/2024 11:16:51 AM Interpretation: Performing Lab: Notes/Report: X ray : Hand, Right Reviewed date:07/08/2024 11:17:44 AM Interpretation: Performing Lab: Notes/Report: Rapid Strep Reviewed date:05/18/2024 03:58:58 PM Interpretation:Negative Performing Lab: Notes/Report: Negative M-Complete Blood Count Auto Diff Reviewed date:07/08/2024 [...] Performing Lab: Notes/Report: KONSTANTIN 90.4 6.24-137 ng/ml R-M-Rckqbfcg Protein Reviewed date:07/08/2024 07:08:21 AM Interpretation: Performing Lab: Notes/Report: CRP 8.1 0-4 mg/L M-Thyroid Stimulating Hormon e Reviewed date:07/07/2024 05:35:33 PM Interpretation: Performing Lab: Notes/Report: TSH 1.17 0.465-4.68 uIU/mL C-Etov-Yltbdhk Antibody Tite r Reviewed date:07/08/2024 11:18:53 AM Interpretation: Performing Lab: Notes/Report: M-Hepatitis C Antibody Reviewed date:07/07/2024 05:35:22 PM Interpretation: Performing Lab: Notes/Report: M-RA Latex Turbid. Reviewed date:07/11/2024 02:57:56 PM Interpretation: Performing Lab: Notes/Report: H-TVITD Reviewed date:07/14/2024 [...] Folate Deficent: 1.04-2.79ng/mL COMPREHENSIVE METABOLIC PANE L (17551) Reviewed date:04/13/2024 02:47:10 PM Interpretation: Performing Lab:[facility] [employer] Ruva3608 BioTalk TechnologiesMinneapolis VA Health Care SystemEwafQN[address] [place] Notes/Report: NON-FASTING; NON-FASTING; NON-FASTING GLUCOSE [...] Reviewed date:04/13/2024 02:47:10 PM Interpretation: Performing Lab:WILLIAM Typemocke1355 BioTalk TechnologiesMinneapolis VA Health Care SystemNgsmKY[address] [place] Wheat[place] Notes/Report: NON-FASTING; NON-FASTING; NON-FASTING WHITE [...] MPV 9.3 7.5-12.5 fL ABSOLUTE NEUTROPHILS 3247 1112-7234 cells/uL ABSOLUTE LYMPHOCYTES 2508 850-3900 cells/uL ABSOLUTE MONOCYTES 482 200-950 cells/uL ABSOLUTE EOSINOPHILS 343 15-500 cells/uL ABSOLUTE BASOPHILS 20 0-200 cells/uL NEUTROPHILS 49.2 LYMPHOCYTES 38.0 MONOCYTES 7.3 EOSINOPHILS 5.2 BASOPHILS 0.3 LIPASE (606) Reviewed date:04/13/2024 02:47:10 PM Interpretation: Performing Lab:CB, [facility] [address], [facility] [id number] [place]w Wheat[place] Notes/Report: NON-FASTING; NON-FASTING; NON-FASTING LIPASE 58 7-60 U/L Reason For Referral Reason Mamm at [facility] unable to contact per [facility] Diagnosis 1 Breast cancer screen ing by mammogram (Z12.31) Referral Organization [facility] Referring Provider First Name David Referring Provider Last Name Jose Referring Provider Speciality Internal M edicine Referred Organization [facility] Referred Address [address] [place] [address], Referred Provider Specialty Diagnostic R adiology General Notes Jaki Arthur 04/2024 10:44:36 AM > faxed and they will call herAusten Nickie 06/03/2024 03:55:02 PM >[facility] unable to contact patient- closing referral Referral Priority Routine Reason Colonoscopy please.. . fam his of colon cancer Dr. Lucero Diagnosis 1 Colon cancer screeni ng (Z12.11) Referral Organization [facility] Referring Provider First Name David Referring Provider Last Name Jose Referring Provider Speciality Internal M edicine Referred Organization [facility] Referred Address [address] [facility], [place],[address] Referred Provider Specialty General Surg lex General Notes Jaki Arthur 04/2024 10:45:11 AM > faxed and they will call her, Dedra Boyce 05/12/2024 12:18:51 PM >sent again, Dedra Boyce 06/14/2024 01:11:20 PM >Schedule with Dr. Lucero 07-05-24 Referral Priority Routine Referral Appointment Date 07/05/2024 Reason Please refer to Derm atologist at [facility] for recurrent skin lesions, needs full body skin cancer check. Diagnosis 1 Skin lesions (L98.9) Referral Organization [facility] Referring Provider First Name Erica Referring Provider Last Name Eva Referring Provider [facility] Referred Organization [facility] Referred Address [address] [facility], [place],[address],[place] Referred Provider Specialty Dermatology General Notes Dedra Boyce 2024 03:52:02 PM >Referral sent to Dr. Escalera, Dedra Boyce 07/23/2024 10:14:06 AM > resent Referral Priority Routine Reason Needs colonoscopy at [facility], first available-screening colonoscopy Diagnosis 1 Unspecified abdomina l pain (R10.9) Referral Organization [facility] Referring Provider First Name David Referring Provider Last Name Jose Referring Provider Speciality Internal M edicine Referral Priority Routine Reason Home Sleep study Diagnosis 1 Chronic insomnia (F5 1.04) Referral Organization [facility] Referring Provider First Name Erica Referring Provider Last Name Caitlin Referring Provider Speciality Family Pra ctice Referred Organization [facility] Referred Address [address] [facility], [place],[address],[place] Referred Provider Specialty Sleep Study General Notes Dedra Boyce 2024 04:34:51 PM >sending to [facility] Referral Priority Routine Reason Please refer to [facility] for PT with neck and thoracic back pain. Diagnosis 1 Neck pain (M54.2) Referral Organization [facility] Referring Provider First Name Erica Referring Provider Last Name Eva Referring Provider Speciality Family Pra ctice Referred Organization [facility] Referred Address [address] [facility], [place],[address], Referred Provider Specialty Physical The rapist General Notes Dedra Boyce 2024 09:06:15 AM >sent Referral Priority Routine Medications Medication SIG (Take, Route, Frequency, Duration) Notes Start Date End Date Status Valsartan-hydroCHLOROth iazide 320-25 MG 1 tab(s) orally once a day; Duration: 90 days 03/02/2023 Active metFORMIN HCl 500 MG 1 tablet with a meal Orally twice a day; Duration: 30 days 12/14/2024 Active Celecoxib 200 mg 1 capsule orally [...] review and pick correct strength-formulati on from [employer] options. If intended option is not shown, discontinue and re-order from Quick Search* 07/12/2024 Active Cyclobenzaprine HCl 10 MG 1 tablet [...] Status W/U Status Risk Notes Problem Anxiety (47110446) Anxiety (F41.9) Active confi rmed Problem Sore throat (218448555) Sore throat (J02.9) Active confirmed Problem Morbid obesity (478175374) Morbid obesity (E66.01) Active confirmed Problem Essential hypertension (91815098) Essential hypertension (I10) Active confirmed Problem Gastroesophageal reflux disease (427613665) GERD without esophagitis (K21.9) Active confirmed Problem Body mass index 40+ - morbidly obese (347567341) BMI 40.0-44.9, adult (Z68.41) Active confirmed Problem Chronic pain (06429148) Other chronic pain (G89.29) Active confirmed Problem Neck pain (86093540) Neck pain (M54.2) Active confirmed Problem Tension headache (737369627) Tension headache (G44.209) Active confirmed Problem Chronic insomnia (740769057) Chronic insomnia (F51.04) Active confirmed Problem Fatty liver (193423464) Fatty liver (K76.0) Active confirmed Problem Mood disorder (54067223) Mood disorder (F39) Active confirmed Problem Skin sensation disturbance (40524966) Paresthesia of both feet (R20.2) Active confirmed Problem Generalized anxiety disorder (97424293) MADHAV (generalized anxiety disorder) (F41.1) Active confirmed Problem Neutrophilic leukocytosis (214392572) Neutrophilic leukocytosis (D72.9) Active confirmed Problem Sciatica (78026660) Acute left-sided low back pain with left-sided sciatica (M54.42) Active confirmed Problem Leukocytosis (059814093) Leukocytosis, unspecified (D72.829) Active confirmed Problem Amnesia (18630884) Memory change s (R41.3) Active confirmed Problem Type II diabetes mellitus without complication (136281186) Controlled type 2 diabetes mellitus without complication, without long-term current use of insulin (E11.9) Active confirmed Problem Seasonal allergic rhinitis (213029332) Seasonal allergic rhinitis, unspecified trigger (J30.2) Active confirmed Problem Type II diabetes mellitus without complication (405479078) New onset type 2 diabetes mellitus (E11.9) Active confirmed Problem Disorder of lumbar disc (689451955) Lumbar disc disease (M51.9) Active confirmed Problem Cough (25285450) Cough (R05.9) Active confirmed Vital Signs Heart Rate 92 /min 12/05/2024 Temperature 97.9 degrees Fahrenheit 12/05/2024 Blood pressure diastolic 100 mm Hg 12/05/2024 Height 5 ft 7 in in 12/05/2024 Blood pressure systolic 136 mm Hg 12/05/2024 Weight 243 lbs 12/05/2024 BMI 38.06 kg/m2 12/05/2024 Encounters Encounter Location Date Provider Diagnosis [facility] [address] [place] [facility] [address] [place] [address] 08/06/2024 Provider Migration [facility] [address] [address] 02/19/2024 Ester Romero Essential (primary) hypertension I10 ; MADHAV (generalized anxiety disorder) F41.1 ; Lumbar disc disease M51.9 ; Chronic insomnia F51.04 and Arthralgia of multiple joints M25.50 [facility] [address] [place] [address] 03/03/2024 Ester Romero Acute cystitis with hematuria N30.01 ; Acute left-sided low back pain with left-sided sciatica M54.42 ; Essential hypertension I10 and Mood disorder F39 [facility] [address] [place] [address] 04/06/2024 David Garcia Acute abdominal pain R10.9 [facility] [address] [place] [address] 04/13/2024 Davidphilippe Garcia Acute abdominal pain R10.9 ; Breast cancer screening by mammogram Z12.31 ; Colon cancer screening Z12.11 ; Immunization(s) administered Z23 and Routine medical exam Z00.00 [facility] [address] [place] [address] 05/05/2024 Erica Velasquez Acute suppurative otitis media of right ear without spontaneous rupture of tympanic membrane, recurrence not specified H66.001 and Acute URI J06.9 [facility] [address] [place] [address] 05/18/2024 Erica Velasquez Skin lesions L98.9 ; Sore throat J02.9 and Right acute serous otitis media, recurrence not specified H65.01 [facility] [address] [place] [address] 06/22/2024 David Garcia Seasonal allergic rhinitis, unspecified trigger J30.2 ; MADHAV (generalized anxiety disorder) F41.1 ; Unspecified abdominal pain R10.9 and Other chronic pain G89.29 [facility] [address] [address] 07/06/2024 Erica Caitlin Pain in right hand M79.641 ; Pain in left hand M79.642 ; Right hip pain M25.551 ; Memory changes R41.3 ; Controlled type 2 diabetes mellitus without complication, without long-term current use of insulin E11.9 and Chronic insomnia F51.04 [facility] [address] [place] [address] 08/11/2024 Erica Donnellyell Neck pain M54.2 ; Essential (primary) hypertension I10 and MADHAV (generalized anxiety disorder) F41.1 [facility] [address] [place] [address] 09/13/2024 Erica Caitlin Mood disorder F39 ; Lumbar disc disease M51.9 ; Other chronic pain G89.29 and Tension headache G44.209 [facility] [address] [place] [address] 10/24/2024 Erica Caitlin Mood disorder F39 ; Lumbar disc disease M51.9 and Other chronic pain G89.29 [facility] [address] [place] [address] 12/05/2024 Erica Caitlin Mood disorder F39 ; Controlled type 2 diabetes mellitus without complication, without long-term current use of insulin E11.9 ; Lumbar disc disease M51.9 ; Other chronic pain G89.29 and Essential hypertension I10 [facility] [address] [address] 04/14/2024 David Garcia Breast cancer screening by mammogram Z12.31 [facility] [address] [place] [address] 05/05/2024 David Besson [facility] [address] [place] [address] 07/12/2024 Erica Tucker [facility] [address] [place] [address] 08/11/2024 Erica Velasquez MADHAV (generalized anxiety disorder) F41.1 [facility] [address] [place] [address] 08/12/2024 David Garcia Neck pain M54.2 and Back pain M54.9 [facility] [address] [place] [address] 09/13/2024 Erica Tucker Neck pain M54.2 and Back pain M54.9 [facility] [address] [facility] [address] [place] [address] 10/24/2024 David Garcia [facility] [address] [address] 11/10/2024 Erica Tucker Essential (primary) hypertension I10 and MADHAV (generalized anxiety disorder) F41.1 [facility] [address] [address] 12/14/2024 Erica Tucker Controlled type 2 diabetes mellitus without complication, without long-term current use of insulin E11.9 Assessments Encounter Date Diagnosis (ICD Code) Assessment Notes Treatment Notes Treatment Clinical Notes Section Notes 05/18/2024 Sore throat (ICD-10 - J02.9) 04/13/2024 Acute abdominal pain (ICD-10 - R10.9) Continue supportive care with Carafate, etc. Patient agreeable to beginning to space out this medication. If problem lingers to next visit, still may need to consider further investigation with EGD/colonoscopy. 04/13/2024 Breast cancer screening by mammogram (ICD-10 - Z12.31) 06/22/2024 MADHAV (generalized anxiety disorder) (ICD-10 - [...] Pain in left hand (ICD-10 - M79.642) 03/03/2024 Acute cystitis with hematuria (ICD-10 - N30.01) [facility] records reviewed. Urine cx prelim- gram - rods 08/11/2024 Essential (primary) hypertension (ICD-10 - I10) [...] agree with the plan of care above. 08/11/2024 MADHAV (generalized anxiety disorder) (ICD-10 - [...] help to lower her BP as well. 12/14/2024 Controlled type 2 diabetes mellitus without complication, without long-term current use of insulin (ICD-10 - E11.9) 05/18/2024 Skin lesions (ICD-10 - L98.9) At patient request with multiple tiny dry scabbed lesions, have placed Dermatology referral. 05/05/2024 Acute URI (ICD-10 - J06.9) Reassurance. [...] above. Return precautions discussed. All questions answered. 02/19/2024 Essential (primary) hypertension (ICD-10 - I10) Restart valsartan/HCTZ. RTC in 1 week for b/p check and labs 02/19/2024 MADHAV (generalized anxiety disorder) (ICD-10 - F41.1) Restart SSRI. Instructed to take 1/2 tab x 7 days then increase to 1 tab. Discussed rationale for pharmacotherapy, and discussed MOA of med. Discussed time course of expected improvements, and discussed side effect profile and need for urgent evaluation if agitation or worsening mood occurs. Discussed need for f/u in office. 03/03/2024 Acute left-sided low back pain with [...] for SBO from scarring, possibly from adhesions). 04/14/2024 Breast cancer screening by mammogram (ICD-10 - Z12.31) 06/22/2024 Unspecified abdominal pain (ICD-10 - R10.9) Better with Carafate. Colonoscopy did not get scheduled. We will make this referral once again. I will see her in 3 months 02/19/2024 Lumbar disc disease (ICD-10 - M51.9) Celebrex as below. Stretches, warm compresses, muscle relaxer prn 12/05/2024 Lumbar disc disease (ICD-10 - M51.9) May take Celebrex twice a day as needed and continue cyclobenzaprine. Possible side effects and return precautions were reviewed as well 10/24/2024 Other chronic pain (ICD-10 - G89.29) 11/10/2024 MADHAV (generalized anxiety disorder) (ICD-10 - F41.1) 09/13/2024 Back pain (ICD-10 - M54.9) 09/13/2024 Other chronic pain (ICD-10 - G89.29) 08/12/2024 Back pain (ICD-10 - M54.9) 08/11/2024 MADHAV (generalized anxiety disorder) (ICD-10 - F41.1) Increased Zoloft as above and discussed for patient to take 0.5 tab to 1 tap Hydroxyzine during the day PRN for anxiety. Denies SI/HI. Follow-up in 1 week or sooner if needed. Patient voices understanding and agrees with the plan of care above. 03/03/2024 Essential hypertension (ICD-10 - I10) Restart coreg, b/p check in 2 weeks 07/06/2024 Right hip pain (ICD-10 - M25.551) 05/18/2024 Right acute serous otitis media, recurrence not specified (ICD-10 - H65.01) No active infection. Flonase bid x 7 days then once daily, continue antihistamine. Follow-up if develops fever, pain, hearing loss, worsening symptoms, or no improvement in a week. Warm compress to right neck. 04/13/2024 Colon cancer screening (ICD-10 - Z12.11) 04/13/2024 Immunization(s) administered (ICD-10 - Z23) 03/03/2024 Mood disorder (ICD-10 - F39) Stable on current regimen. No changes made today 07/06/2024 Memory changes (ICD-10 - R41.3) discussed that this is often related to poor sleep, poorly controlled depression and/or anxiety symptoms. Rec labs, home sleep study. Consider brain imaging and/or referral pending those results/symptoms 09/13/2024 Tension headache (ICD-10 - G44.209) 12/05/2024 Other chronic pain (ICD-10 - G89.29) 02/19/2024 Chronic insomnia (ICD-10 - F51.04) Restart hydroxyzine at HS, start with 1 tab QHS x 7 days then increase to 2 if insomnia persists 06/22/2024 Other chronic pain (ICD-10 - G89.29) 02/19/2024 Arthralgia of multiple joints (ICD-10 - M25.50) Start celebrex. Will re-evaluate symptoms at FU 04/13/2024 Routine medical exam (ICD-10 - Z00.00) Patient needs colonoscopy given family history of colon cancer. Asymptomatic but not a candidate for Cologuard given her family history. This will be scheduled. Also needs mammogram, has never had 1. Needs flu shot, this is given today. Otherwise doing well, non-smoker. Continue medicines for abdominal pain 12/05/2024 Essential hypertension (ICD-10 - I10) plans [...] 25 Hydroxy 07/06/2024 M-Folate 07/06/2024 M-Folate 03/02/2023 U-Pxau-Bfzypc Citrullinated Pept 025 M-Microalb/Creat Ratio, Randm Ur 023 Comprehensive Metabolic Panel (CMP) 06/2021 Physical Therapy Eval and Treat 09/14/19 25 Physical Therapy Eval and Treat 08/13/19 25 Next Appt Details Provider Name:Erica Villalobos Richard ce, 01/19/2025 08:45:00 AM, [address], [place], [address], Insurance Providers Payer Name Payer Address Payer Phone Subscriber Number Group Number Insured Name Patient Relationship to Insured Coverage Start Date Coverage End Date [employer] [facility] [address] [address] [place] [address] [id number] Jasmin Zamorano Self - patient is the [...] from thumb 09/2024 Hospitalization History Reason Date(Month/Year) [facility]. 07/25-03/08 lipitripsy x 1
--- OUTSIDE RECORDS SUMMARY | 2024-12-23 11:17 | XMS_ITS | Clinical Summary ---
Author Organization [facility] Address [address] [place] [address] Care Team Providers Care Machine Cell Tuber Name Role Phone Kaya Braden SKI LIFT ATTENDANT Unavailable [phone] Erica Tucker SKI LIFT ATTENDANT Primary Care Provider [phone] Allergies Active Allergy Reactions Criticality Noted Date [...] COMFORT PAC) 4 MG misc 2 Active Methow 0.65 % nasal spray INSTILL 2 SPRAYS [...] 2022 Sigmoidoscopy 2022 [facility]-Colorectal Cancer Screening 2022 [id number] Vaccine ( season) 2024 04/09/2021, 10/02/2020, 09/04/2020 [...] age to complete this topic Insurance AETNA [facility] MEDICAID Care Teams Machine Cell Tuber Relationship Specialty Start Date End Date Erica Tucker APRN [address] [facility] [address] [facility] [address] [place] [address] PCP - General 09/01/22 Kaya Braden APRN [address] [facility] [address] [place] [address] Nurse Practitioner Neurosurgery 09/01/22
--- OUTSIDE RECORDS SUMMARY | 2024-12-23 11:17 | XMS_ITS | Encounter Summary ---
Author Organization [facility] Address [address] [place] [address] Care Team Providers Care Commissioning Agent Name Role Phone Mahesh Horton MD Primary Care Provider [phone] Kaya Braden EXPLOSIVE ORDNANCE DISPOSAL SPECIALIST Unavailable [phone] Erica Tucker APRN Primary Care Provider [phone] Encounter Details Date Type Department Care Team (Latest Contact Info) Description 11/08/2021 [facility] [address] [place] [address] Zee Avery, [place] [address] [facility] [place] [address] Lumbar radiculopathy (Primary Dx) Social [...] unspecified documented in this encounter Care Teams Commissioning Agent Relationship Specialty Start Date End Date Mahesh Horton MD [address] [place] [address] PCP - General 09/14/20 08/31/22 Erica Tucker APRN [address] [facility] [address] [facility] [address] [place] [address] PCP - General 09/01/22 Kaya Braden APRN [address] [facility] [address] [place] [address] Nurse Practitioner Neurosurgery 09/01/22 documented as of this encounter
[2024-12-23 12:28] LABS: Hematocrit 36.1 % (37.0-47.0); Hemoglobin 11.7 g/dL (12.2-16.2); Immature Granulocytes % 0.2 %; Mean Corpuscular HGB Conc 32.4 g/dL (31.8-35.4); Mean Corpuscular Hemoglobin 30.3 pg (27.0-31.2); Mean Corpuscular Volume 93.5 fl (81-99); Nucleated Red Blood Cells % 0 %; Platelet Count 321 K/mm3 (142-424); Red Blood Count 3.86 M/mm3 (4.20-5.40); Red Cell Distribution Width-SD 43.7 fL; White Blood Count 8.6 K/mm3 (4.8-10.8)
[2024-12-23 12:47] LABS: Albumin Level 4.5 g/dl (3.5-5.0); Chloride 106 mmol/L (98-107); Potassium 4.5 mmoL/L (3.5-5.1); Sodium 141 mmol/L (136-145)
[2024-12-23 12:49] LABS: Bilirubin,Unconjugated 0.8 mg/dL (0.0-1.1); Blood Urea Nitrogen 28 mg/dl (7-17); Creatinine Clearance Estimated 123 mL/min (50-200); Creatinine,Serum 1.00 mg/dl (0.52-1.04); Estimated Glomerular Filt Rate 59 ml/min (>60); GFR (African American) 72 ML/MIN (>60)
[2024-12-23 12:50] LABS: Alanine Aminotransferase 26 U/L (12-78); Alkaline Phosphatase 93 U/L (38-126); Anion Gap 12.5 mEq/L (5-15); Aspartate Amino Transferase 30 U/L (14-36); Bilirubin,Direct 0.0 mg/dl (0.0-0.4); Bilirubin,Indirect 0.8 mg/dL (0.0-0.9); Bilirubin,Total 0.8 mg/dl (0.2-1.3); Calcium 9.6 mg/dl (8.4-10.2); Carbon Dioxide 27 mmol/L (22.0-30.0); Cholesterol 202 mg/dl (140-200); Glucose 86 mg/dl (74-100); HDL Cholesterol 66 mg/dl (40-60); Magnesium 1.5 mg/dl (1.6-2.3); Total Protein,Serum 7.2 g/dl (6.3-8.2); Triglycerides 126 mg/dl (30-150)
== END 2024-12-23 23:59 | disposition home or self-care (01) ==
LOC: PREOP 11:14
PROVIDERS: Physician Assistant; PCP Nurse Practitioner Family; Visit Provider Orthopaedic Surgery
DX: Z01.812 Encounter for preprocedural laboratory examination (principal); I10 Essential (primary) hypertension
CPT/HCPCS: 36415; 80048; 80061; 80076; 82088; 82384; 83735; 83835; 85025

== ENCOUNTER 2024-12-28 06:02 | Day surgery (SDC) | payer OTHER, SELFPAY ==
[2024-12-23 12:47] VITALS: BMI 39.9
[2024-12-28] VITALS (12 sets, daily range): BP systolic 115–156; BP diastolic 65–82; PULSE 66–82; RESP 16–18; TEMP 36.1; O2SAT 95–100
[2024-12-28] MEDS: LACTATED RINGERS 1000ML 1,000 ML 100 ML IV (06:20)
--- NOTE | 2024-12-28 06:41 | P.PNANES_ITS ---
[facility] Disclaimer: The information contained in this section may have been updated after the patient was seen, as this information can be updated by other users. Medical History Abnormal ECG HTN (hypertension) Bronchitis Sinusitis Witnessed apneic spells Daytime somnolence Snoring Dyspnea Facet arthropathy, lumbar Foot pain Carotid artery disease CKD (chronic kidney disease) stage 2, GFR 60-89 ml/min Lumbar radiculopathy Radiculopathy due to lumbar intervertebral disc disorder Chest pain Swelling SOB (shortness of breath) Other forms of angina pectoris Malignant essential hypertension Migraine Surgical History History of thumb surgery History of lithotripsy History of appendectomy History of tonsillectomy History of hysterectomy History of cholecystectomy Family History Other Family history of diabetes mellitus type II Family history of hypertension Family history of stroke Social History Smoking Status: Never smoker second hand exposure: Yes alcohol intake: never substance use type: denies use current occupational status: employed Travel in the last 8 weeks?: None household members: family housing: house number of children: 4 current occupational exposures/hazards: No caffeine: Yes Have you lived/traveled outside US in past 30 days?: No Contact w/someone who lives/traveled outside US past 30 days?: No Exposure to someone with infectious disease in past 14 days?: No Do you have a fever (greater than 100.4 F or 38 C)?: No Have you tested positive for COVID-19?: No Exposed to someone with COVID-19 in past 14 days?: No Do you have a sore throat?: No Do you have a cough?: No Do you have any weakness?: No Do you have any diarrhea?: No Are you experiencing any unusual bleeding?: No Do you have any muscle aches/pain?: No Do you have any abdominal pain?: No Are you experiencing loss of taste or smell?: No [facility] Anesthesia Checklist Patient Identification Patient Identification: Arm Band and Family Structural Data Admitted From: Home Planned Operative Procedure/s: Excision soft tissue mass right thumb Consent for Planned Operative Procedure(s) Verified: Yes Verified Documents: Surgical Consent and History and Physical NPO Status Verified Time NPO: 00:00 Additional verifications Patient : No Anesthesia Reactions: No Hx Blood Transfusions: No Blood Transfusion Reaction: No Cephalosporin Allergy: Yes Previous Colonoscopy: Yes Airway Assessment Mallampati Score:: Class II C-Spine Mobility Assessed: Yes TMJ Mobility Assessed: Yes Dentition: Good Dentition Neurological Assessment Level of Consciousness: Awake, Alert, Appropriate and Follows Commands Hx Seizures: No Numbness or tingling in extremities: No Anesthesia Plan Anesthesia Risk discussed: Yes ASA Class: II Anesthesia Type: General
[2024-12-28] MEDS: CLINDAMYCIN PHOSPHATE/D5W 900 MG/50 ML PIGGYBACK 100 MG IV (07:28)
[2024-12-28] MEDS: LIDOCAINE 1% W/EPI 1:100,000 20ML VIAL 20 ML (07:52)
[2024-12-28] MEDS: MORPHINE 2MG/ML SYRINGE 2 MG (08:32)
--- NOTE | 2024-12-28 08:32 | EXP.ANES.I ---
[facility] Anesthesia Record Part I Anesthesia Record I Intake, IV Amount: 800 Hydration: Adequate Estimated blood loss (mL): 0 Urine output (mL): 0 Blood Products used (#): none Blood Pressure: 156/73 SaO2: 97 Pulse Rate: 82 Airway Patency: Patent Respiratory Rate: 16 Temperature: 97 F Patient is:: Drowsy and Stable Stable to PACU at:: 08:20
--- NOTE | 2024-12-28 08:38 | EXP.OP.NOTE ---
Date of procedure: 12/28/24 Pre-op Diagnosis:: Soft tissue mass right thumb Post-op Diagnosis:: Same Procedure performed:: Excision soft tissue mass right thumb 1 cm x 1 cm Surgeon:: Rajendra Garcia DO Building Rental Superintendent(s):: [employer] DIRECTOR:: Garry Gorman Anesthesia: LMA Estimated blood loss (mL): 0 Operative findings:: Soft tissue mass with scarring right thumb Operative note:: Patient identified preoperatively. Right hand marked with yes my initials. Transported operative suite placed upon the brain bed. General anesthesia was administered airway secured. Right upper extremity prepped and draped in normal sterile fashion. Once prepped and draped final operative timeout performed to identify proper patient procedure and extremity. Everyone involved in the case agreed. There is no communication beginning. Did receive preoperative antibiotics. Esmarch was used to exsanguinate extremity pneumatic tourniquet inflated 250 mmHg. [place] blade skin knife was used to ellipse out soft tissue mass of the thumb. From the external surface appeared to be ganglion like but upon dissection was scarring and no component of ganglion cyst coming from the IP joint. Ellipse around the entire swelling soft tissue mass to excise it. 1 cm x 1 cm in size. [place] blade was used to dissect around the edge remove the mass. Irrigation was performed. Then skin was closed with 4-0 nylon stitch and sterile dressing placed. Patient waken from anesthesia and taken recovery in stable condition. Condition: stable Disposition: PACU Complications:: None apparent
[2024-12-28] MEDS: MORPHINE 2MG/ML SYRINGE 2 MG IV ×2 (08:42→08:53)
--- NOTE | 2024-12-28 09:07 | SUR.PHASEI ---
0857- Dr Garcia at bedside in PACU. Re-dressed dressing with xeroform, 4x4 and mick wrap. 0859. Patient's vital signs stable, pain has decreased. Transported to post op. Detailed report given to Lenora Ruiz RN.
--- NOTE | 2024-12-28 11:46 | P.PNANES_ITS ---
[facility] Anesthesia Record Part II Anesthesia Record Part II Discharge Time: 09:30 Destination: Surgical Day Care (OP Surgery) PACU nurse assessment reviewed?: Yes Patient Condition:: Good Anesthesia Complications:: None Swallowing reflex intact?: Yes Airway Patency: Patent Cyanosis?: No Blood Pressure: 119/75 SaO2: 96 Respiratory Rate: 18 Pulse Rate: 74 Temperature: 97.0 F Mental Status: Alert & Oriented Pain level:: 9 Nausea and/or vomitting:: None Intake, IV Amount: 0 Hydration: Adequate
== END 2024-12-28 09:50 | disposition home or self-care (01) ==
PROVIDERS: PCP Nurse Practitioner Family; Visit Provider Orthopaedic Surgery
PROC: (CPT 26160; principal; 2024-12-28 07:30)
DX: M67.441 Ganglion, right hand (principal); I12.9 Hypertensive chronic kidney disease with stage 1 through stage 4 chronic kidney disease, or unspecified chronic kidney disease; N18.9 Chronic kidney disease, unspecified; Z88.1 Allergy status to other antibiotic agents; Z88.0 Allergy status to penicillin; Z88.8 Allergy status to other drugs, medicaments and biological substances; Z79.84 Long term (current) use of oral hypoglycemic drugs; Z79.899 Other long term (current) drug therapy
CPT/HCPCS: 26160; 96374; J0736; J1100; J2003; J2004; J2250; J2270; J2405; J2704; J3010; J7120

== ENCOUNTER 2025-01-26 11:53 | Outpatient (CLI) | payer OTHER, SELFPAY ==
--- OUTSIDE RECORDS SUMMARY | 2024-12-05 04:00 | XMS_ITS ---
Author Organization [facility] PE D ABDIF[facility] Address [address] [place] [address] Care Team Providers Care Makeup Artist Name Role Phone David Garcia Primary Care Provider Caitlin Erica Unavailable [phone] Allergies Allergen (clinical drug ingredient) Drug/Non Drug Allergy documented on EMR Reaction Allergy Type Onset Date Status metoclopramide Reglan shakes Drug Allergy Ac tive nifedipine NIFEdipine swelling Drug Allergy Activ e amoxicillin Amoxicillin hives Drug Allergy Act tamara ibuprofen Ibuprofen stomach upset Drug Allergy Act tamara Penicillin hives Drug Allergy Active amlodipine amLODIPine swelling Drug Allergy Activ e REASON FOR VISIT 6 wk FU Medications Medication SIG (Take, Route, Frequency, Duration) Notes Start Date End Date Status buPROPion HCl ER (XL) 300 MG 1 tablet in the morning Orally Once a day; Duration: 30 days 10/24/2024 Active Cyclobenzaprine HCl 10 MG 1 tablet at bedtime as needed for muscle spasm Orally 3 times a day; Duration: 30 days 10/24/2024 Active Carvedilol 6.25 mg TAKE ONE TABLET BY MOUTH TWICE DAILY; Duration: 30 Active Sertraline HCl 100 mg TAKE ONE TABLET BY MOUTH EVERY DAY; Duration: 30 Active hydrOXYzine Pamoate 50 MG as directed orally as directed; Duration: 30 days Active Celecoxib 200 mg 1 capsule orally twice a day; Duration: 30 days Active Valsartan-hydroCHLOROth iazide 320-25 MG 1 tab(s) orally once a day; Duration: 90 days 03/02/2023 Active Loratadine 10 MG 1 tab(s) orally once a day; Duration: 30 days 05/18/2024 Active Fluticasone Propionate 50 MCG/ACT 1 spray(s) in each nostril twice daily; Duration: 30 days 06/22/2024 Active Cholecalciferol 50 MCG 1 TAB(S) ORALLY ONCE A DAY; Duration: 30 DAYS *Please review and pick correct strength-formulati on from [employer] options. If intended option is not shown, discontinue and re-order from Quick Search* 07/12/2024 Active Sucralfate 1 GM 1 tab(s) orally 4 times a day (before meals and at bedtime); Duration: 10 days Active Farxiga 5 MG 1 tablet Orally Once a day; Duration: 30 days 12/05/2024 Active Dicyclomine HCl 20 MG 1 tab(s) orally 4 times a day PRN Active Pantoprazole Sodium 40 MG 1 tab(s) orally once a day Active Ondansetron HCl 4 MG 1 tab(s) orally every 8 hours Active Social History Tobacco Use: Social History Observation Description Date Details (start date - stop date) Former Smoker NA - NA Smoking: Question Answer Notes Are you a: former smoker How long has it been since you last smoked? > 10 years Vital Signs Temperature 97.9 degrees Fahrenheit 12/06/19 25 Heart Rate 92 /min 12/05/2024 Blood pressure systolic 136 mm Hg 12/06/19 25 Blood pressure diastolic 100 mm Hg 025 Height 5 ft 7 in in 12/05/2024 Weight 243 lbs 12/05/2024 BMI 38.06 kg/m2 12/05/2024 Encounters Encounter Location Date Provider Diagnosis Formerly [facility] [address] [facility] [address] [place], [place] [address] 12/05/2024 Erica Tucker Mood disorder F39 ; Controlled type 2 diabetes mellitus without complication, without long-term current use of insulin E11.9 ; Lumbar disc disease M51.9 ; Other chronic pain G89.29 and Essential hypertension I10 Assessments Encounter Date Diagnosis (ICD Code) Assessment Notes Treatment Notes Treatment Clinical Notes Section Notes 12/05/2024 Mood disorder (ICD-10 - F39) continue Wellbutrin to 300 mg once a day. Continue her other current regimen, return precautions reviewed 12/05/2024 Controlled type 2 diabetes mellitus without complication, without long-term current use of insulin (ICD-10 - E11.9) continue effort with 1500 ana m diet and increasing daily activity as tolerated, especially on her days out of work. Will resume Farxiga which she tolerated previously, may help to lower her BP as well. 12/05/2024 Lumbar disc disease (ICD-10 - M51.9) May take Celebrex twice a day as needed and continue cyclobenzaprine . Possible side effects and return precautions were reviewed as well 12/05/2024 Other chronic pain (ICD-10 - G89.29) 12/05/2024 Essential hypertension (ICD-10 - I10) plans to reschedule cardiology FU Plan Of Treatment Medication Medication Name Sig Start Date Stop Date Notes Farxiga 5 MG 1 tablet Orally Once a day; Duration: 30 days 12/05/2024 Next Appt Details Follow Up: 4-6 weeks, Reason : Provider Name:Erica Ramos ce, 03/02/2025 08:45:00 AM, [address] [facility] [address] [facility], [facility] [address], [place], [address], Progress Notes * Jasmin JORGEDOB:[birth year] (49 yo F)Acc No.[id number]:12/05/2024 Progress Notes Patient: Lisbeth RODRIGUEZ Jasmin HAAS Provider: LINDA Rojas :1975 A ge:49 Y S ex:Female Date:12/05/2024 Address:[address] [place], [place] [id number] Pcp:David Garcia Subjective: * Chief Complaints: * 1 . 6 wk FU. * HPI: g en: Presents today for 6-week follow-up regarding her mood. Last visit we increased Wellbutrin to 300 mg once a day. She does report some improvement. Still tolerating her new job and reports that things have improved at home since her son-in-law moved out. They are also in the process of moving outside of town and she is hopeful this will give them some more room in the house as well We also increased the dose of her cyclobenzaprine from 5 mg to 10 mg and she does report some improvement in her back and leg pain. Very active at work, going up and down 3 flights of stairs multiple times throughout her shift. Diastolic blood pressure is elevated today. Has been elevated during her recent orthopedic visits and cardiology visit. Cardiology increased dose of valsartan, missed her FU visit, but plans to reschedule. She does note some difficulty losing weight despite following 1500 ana m diet. * ROS: C ONSTITUTIONAL: See HPI Y [...] Stone. Stent Placed 03/23/24, Kidney Stent Removed 03/29/24, cyst removal from thumb 09/2024. * Hospitalization/Major Diagno stic Procedure: l ipitripsy x 1 , [facility]- Kidney Stone. 03/06/24-03/08. * Family History: [...] Alcohol: no. Travel outside [place]: no. 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 * Medications: T aking Dicyclomine HCl 20 [...] *Please review and pick correct strength-formulation from [employer] options. If intended option is not shown, discontinue and re-order from Quick Search*, Taking Valsartan-hydroCHLOROthiazide 320-25 MG Tablet 1 tab(s) orally once a day , Taking Celecoxib 200 mg Capsule 1 capsule orally twice a day , Taking buPROPion HCl ER (XL) 300 MG Tablet Extended Release 24 Hour 1 tablet in the morning Orally Once a day , Taking Cyclobenzaprine HCl 10 MG Tablet 1 tablet at bedtime as needed for muscle spasm Orally 3 times a day , Taking Carvedilol 6.25 mg Tablet TAKE ONE TABLET BY MOUTH TWICE DAILY , Taking Sertraline HCl 100 mg Tablet TAKE ONE TABLET BY MOUTH EVERY DAY , Taking hydrOXYzine Pamoate 50 MG Capsule as directed orally as directed , Medication List reviewed and reconciled with the patient * Allergies: a mLODIPine: swelling, Ibuprofen: stomach upset, Amoxicillin: hives, Reglan: shakes, Penicillin: hives, NIFEdipine: swelling. Objective: * Vitals: N urse: jl, Pain: 0, Temp: 97.9, RR: 20, HR: 92, BP: 136/100, Ht: 5 ft 7 in, Wt: 243, BMI:38.06. * Examination: P sychology: General Appearance: N AD, pleasant. Grooming : a dequate. Eye contact : n ormal. Mood : p leasant. Heart: R egular Rate and Rhythm, no murmur, rubs or gallops. Lungs: L CTAB, No wheezes, crackles or rhonchi, Good air movement,. Assessment: * Assessment: 1. C ontrolled type 2 diabetes mellitus without complication, without long-term current use of insulin - E11.9 (Primary) 2 . M ood disorder - F39 3 . L umbar disc disease - M51.9 4 . O ther chronic pain - G89.29 5 . Essential hypertension - I10 Plan: * Treatment: 2. M ood disorder Clinical Notes: continue Wellbutrin to 300 mg once a day. Continue her other current regimen, return precautions reviewed 3. L umbar disc disease Clinical Notes: May take Celebrex twice a day as needed and continue cyclobenzaprine. Possible side effects and return precautions were reviewed as well 4. E ssential hypertension Clinical Notes: plans to reschedule cardiology FU * Follow Up: 4 -6 weeks * * Sign off status: Completed true * Provider: LINDA Rojas Date: 12/05/2024 Generated for Elsie mcnair/Remy/Maikol on: 0 01/26/2025 12:00 PM EDT History and Physical Notes * HPI (History of Present Illness) Category Sub-Category Detail Notes Category Not es gen Presents today for 6-week follow-up regarding her mood. Last visit we increased Wellbutrin to 300 mg once a day. She does report some improvement. Still tolerating her new job and reports that things have improved at home since her son-in-law moved out. They are also in the process of moving outside of town and she is hopeful this will give them some more room in the house as well We also increased the dose of her cyclobenzaprine from 5 mg to 10 mg and she does report some improvement in her back and leg pain. Very active at work, going up and down 3 flights of stairs multiple times throughout her shift. Diastolic blood pressure is elevated today. Has been elevated during her recent orthopedic visits and cardiology visit. Cardiology increased dose of valsartan, missed her FU visit, but plans to reschedule. She does note some difficulty losing weight despite following 1500 ana m diet. Examination Category Sub-Category Detail Notes Category Not es Psychology Heart: Regular Rate and Rhythm, no murmur, rubs or gallops Lungs: LCTAB, No wheezes, c rackles or rhonchi, Good air movement, General Appearance: NAD, pleasant Grooming : adequate Eye contact : normal Mood : pleasant
--- OUTSIDE RECORDS SUMMARY | 2025-01-19 04:45 | XMS_ITS ---
Author Organization [facility] PE D ABDIFATA[facility] Address [address] [place] [address] Care Team Providers Care Ranch Manager Name Role Phone David Garcia Primary Care Provider [phone] Caitlin Erica Unavailable [phone] Allergies Allergen (clinical drug ingredient) Drug/Non Drug Allergy documented on EMR Reaction Allergy Type Onset Date Status metoclopramide Reglan shakes Drug Allergy Ac tive nifedipine NIFEdipine swelling Drug Allergy Activ e amoxicillin Amoxicillin hives Drug Allergy Act tamara ibuprofen Ibuprofen stomach upset Drug Allergy Act tamara Penicillin hives Drug Allergy Active amlodipine amLODIPine swelling Drug Allergy Activ e REASON FOR VISIT 6 Week Follow up- [...] review and pick correct strength-formulati on from [employer] options. If intended option is not shown, [...] Signs Temperature 97.5 degrees Fahrenheit 01/20/20 25 Heart Rate 68 /min 01/19/2025 Blood pressure systolic 106 mm Hg 01/20/20 25 Blood pressure diastolic 78 mm Hg 025 Height 5 ft 7 in in 01/19/2025 Weight 246.2 lbs 01/19/2025 BMI 38.56 kg/m2 01/19/2025 Encounters Encounter Location Date Provider Diagnosis [facility]BD[facility] [address] [place] [address] 01/19/2025 Erica Tucker Mood disorder F39 ; [...] Ramos ce, 03/02/2025 08:45:00 AM, [address] [place] [facility] [address] [facility], [address], [place], [address], Medications Administered Medication Instructions Date of Administration Dosage Notes Dexamethasone 4mg Injection 01/19/2025 4 mg Progress Notes * Jasmin JORGEDOB:[birth year] (49 yo F)Acc No.[id number]:01/19/2025 Progress Notes Patient: Lisbeth Jasmin CARPENTER Provider: LNIDA Rojas :1975 A ge:49 Y S ex:Female Date:01/19/2025 Address:[address] [place] [address] [place], [id number] Pcp:David Garcia Subjective: * Chief Complaints: * [...] G ASTROENTEROLOGY: Reviewed, No Symptoms Reported: Y shakira. M USCULOSKELETAL: back pain y es. U ROLOGY: Reviewed, No Symptoms Reported: Y shakira. * Medical History: P TSD, Herniated disc, [...] stic Procedure: l ipitripsy x 1 , [facility]- Kidney Stone. 03/06/24-03/08. * Family History: [...] no. Travel outside [place]: no. 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 * Medications: T aking Dicyclomine HCl [...] *Please review and pick correct strength-formulation from [employer] options. If intended option is not shown, [...] J 1100 Dexamethasone Sodium Phosphate 4mg Injection, 37445 THERAPEUTIC ADMINISTRATION * Follow Up: 6 Weeks * * Sign off status: Completed true * Provider: LINDA Rojas Date: 01/19/2025 Generated for Elsie mcnair/Remy/Maikol on: 01/26/2025 12:00 PM EDT History and Physical [...]
--- OUTSIDE RECORDS SUMMARY | 2025-01-26 07:48 | XMS_ITS ---
Author Organization [facility] Address [address] [facility] [address] [place] [address] Care Team Providers Care Behavioral Consultant Name Role Phone GradybrianDavid Primary Care Provider Ester Romero Unavailable [phone] REASON FOR VISIT OT orders Encounters Encounter Location Date Provider Diagnosis [facility] [address] [place], [place] [address] 01/26/2025 Ester Nick Acute pain of right shoulder M25.511 Assessments Encounter Date Diagnosis (ICD Code) Assessment Notes Treatment Notes Treatment Clinical Notes Section Notes 01/26/2025 Acute pain of right shoulder (ICD-10 - M25.511) Plan Of Treatment Pending Test Test Name Order Date Occupational Therapy : Eval & Treatment 01/26/2025 Next Appt Details Provider Name:Erica sylvester, 03/02/2025 08:45:00 AM, [address] [facility], [address], [place], [place], [address], Progress Notes * Jasmin JORGEDOB:[birth year] (49 yo F)Acc No.[id number]:01/26/2025 Patient: Lisbeth Jasmin CARPENTER :1975 A ge:49 Y S ex:Female Address:[address] [place] [address] [facility] [address] Subjective: * Chief Complaints: * O T orders * Medical History: * Surgical History: * Hospitalization/Major Diagno stic Procedure: * Medications: Objective: * Vitals: * Physical Examination: Assessment: * Assessment: 1. A cute pain of right shoulder - M25.511 Plan: * Treatment: * Procedure Codes: * true * Date: Generated for Elsie mcnair/Remy/Maikol on: 0 01/26/2025 12:00 PM EDT
--- NOTE | 2025-01-26 11:56 | XR_ITS ---
FINAL REPORT CLINICAL HISTORY: ACUTE PAIN OF RT SHOULDER COMPARISON: None FINDINGS: 2 views of the right shoulder were obtained. There is no fracture or dislocation. Mild degenerative changes present. Soft tissues are unremarkable. IMPRESSION: Mild degenerative change, with no acute osseous abnormality of the right shoulder. Reviewed, Interpreted and Dictated by Diane White MD Transcribed by Kimberly Pinedo Authenticated and [facility]
--- OUTSIDE RECORDS SUMMARY | 2025-01-26 12:00 | XMS_ITS | Encounter Summary ---
Author Organization [facility] Address [address] [place] [address] Care Team Providers Care Supply Chain Vice President Name Role Phone Mahesh Horton MD Primary Care Provider [phone] Kaya Braden MARKETING TECHNOLOGY SPECIALIST Unavailable [phone] Erica Tucker APRN Primary Care Provider [phone] Encounter Details Date Type Department Care Team (Latest Contact Info) Description 11/08/2021 Community [facility] [address] [place] [address] [place], [place] [address] [facility] [place] [address] Lumbar radiculopathy (Primary Dx) Social [...] unspecified documented in this encounter Care Teams Supply Chain Vice President Relationship Specialty Start Date End Date Mahesh Horton MD [address] [place] [address] PCP - General 09/14/20 08/31/22 Erica Tucker APRN [address] [facility] [address] [facility] [address] [place] [address] PCP - General 09/01/22 Kaya Braden APRN [address] [facility] [address] [place] [id number] Nurse Practitioner Neurosurgery 09/01/22 documented as of this encounter
--- OUTSIDE RECORDS SUMMARY | 2025-01-26 12:00 | XMS_ITS | Patient Health Record ---
Author Organization [facility] PE D ABDIFATAH Address [address] [place] [address] Care Team Providers Care Strap Machine Operator Automatic Name Role Phone Chidi Garciahen Primary Care Provider [phone] Erica Tucker Unavailable [phone] Ester Romero Unavailable [phone] Erica Velasquez Unavailable [phone] Migration, Provider Unavailable Unavailable Allergies Allergen (clinical [...] e Results Component Value Reference Range Notes H-FOL Reviewed date:07/11/2024 05:12:14 PM Interpretation: Performing Lab: Notes/Report: FOL 4.17 Normal Adult: 2.76->20 ng/mL Folate Deficent: 1.04-2.79ng/mL H-VITB12 Reviewed date:07/11/2024 05:12:18 PM Interpretation: Performing Lab: Notes/Report: VITB12 396 239-931 pg/mL H-TVITD Reviewed date:07/14/2024 09:27:49 AM Interpretation: Performing Lab: Notes/Report: TVITD 23.3 30-100 ng/mL Deficient <20 ng/mL Insufficient 20-30 ng/mL Sufficient 30-100 ng/mL Potential Toxicity >100 ng/mL M-RA Latex Turbid. Reviewed date:07/17/2024 10:11:54 AM Interpretation: Performing Lab: Notes/Report: RA <10.0 <14.0 IU/mL Performed at: [address] [id number] [employer] Loader And Cleaner: Felipe Cortes PhD, Phone: [phone] M-Hepatitis C Antibody Reviewed date:07/07/2024 05:35:22 PM Interpretation: Performing Lab: Notes/Report: M-Thyroid Stimulating Hormon e Reviewed date:07/07/2024 05:35:33 PM Interpretation: Performing Lab: Notes/Report: TSH 1.17 0.465-4.68 uIU/mL M-Uric Acid Reviewed date:07/07/2024 05:35:40 PM Interpretation: Performing Lab: Notes/Report: URIC 3.5 2.5-6.2 mg/dl M-Hemoglobin A1C Reviewed date:07/07/2024 05:35:31 PM Interpretation: Performing Lab: Notes/Report: HGBA1C 4.4 4.0-6.0 % < 6% Non-Diabetic Level < 7% Controlled Diabetic Level > 8% Poorly Controlled Diabetic Level Rapid Strep Reviewed date:05/18/2024 03:58:58 PM Interpretation:Negative Performing Lab: Notes/Report: Negative X ray : Hand, Right Reviewed date:07/08/2024 11:17:44 AM Interpretation: Performing Lab: Notes/Report: X ray : Hand, Left Reviewed date:07/08/2024 11:16:51 AM Interpretation: Performing Lab: Notes/Report: X ray : Hip, Right Reviewed date:07/08/2024 11:18:07 AM Interpretation: Performing Lab: Notes/Report: M-Comprehensive Metabolic Pa laureano Reviewed date:07/08/2024 07:07:43 [...] AGRATIO 1.7 1.1-1.8 ALP 109 38-126 U/L M-Complete Blood Count Auto Diff Reviewed date:07/08/2024 [...] Performing Lab: Notes/Report: ESR 35 0-20 mm/hr M-Ferritin Reviewed date:07/08/2024 07:07:32 AM Interpretation: Performing Lab: Notes/Report: KONSTANTIN 90.4 6.24-137 ng/ml Z-U-Tdudmfhm Protein Reviewed date:07/08/2024 07:08:21 AM Interpretation: Performing Lab: Notes/Report: CRP 8.1 0-4 mg/L Z-Rgbw-Fdygbjl Antibody Mary Jane gooden Reviewed date:07/08/2024 11:18:53 AM Interpretation: Performing Lab: Notes/Report: M-RA Latex Turbid. Reviewed date:07/11/2024 02:57:56 PM Interpretation: Performing Lab: Notes/Report: COMPREHENSIVE METABOLIC PANJoesph Villalobos ([id number]) Reviewed date:04/13/2024 02:47:10 PM Interpretation: Performing Lab:[facility]ILLIAM [address] [employer], [id number] [place] Notes/Report: NON-FASTING; NON-FASTING; NON-FASTING GLUCOSE [...] Reviewed date:04/13/2024 02:47:10 PM Interpretation: Performing Lab:[facility]IAM [employer] [address] [employer], [id number] [place] Notes/Report: NON-FASTING; NON-FASTING; NON-FASTING WHITE [...] MPV 9.3 7.5-12.5 fL ABSOLUTE NEUTROPHILS 3247 9227-0031 cells/uL ABSOLUTE LYMPHOCYTES 2508 850-3900 cells/uL ABSOLUTE MONOCYTES 482 200-950 cells/uL ABSOLUTE EOSINOPHILS 343 15-500 cells/uL ABSOLUTE BASOPHILS 20 0-200 cells/uL NEUTROPHILS 49.2 LYMPHOCYTES 38.0 MONOCYTES 7.3 EOSINOPHILS 5.2 BASOPHILS 0.3 LIPASE (606) Reviewed date:04/13/2024 02:47:10 PM Interpretation: Performing Lab:CB, [facility] [address], [id number] [place] Notes/Report: NON-FASTING; NON-FASTING; NON-FASTING LIPASE 58 7-60 U/L Reason For Referral Reason Mamm at [facility] unable to contact per [facility] Diagnosis 1 Breast cancer screen ing by mammogram (Z12.31) Referral Organization [facility] PED ABDIFATAH Referring Provider First Name David Referring Provider Last Name Jose Referring Provider Speciality Internal M edicine Referred Organization [facility] Referred Address [address] [place] [address], Referred Provider Specialty Diagnostic R adiology General Notes Jaki Arthur 04/2024 10:44:36 AM > faxed and they will call herAusten Nickie 06/03/2024 03:55:02 PM >[facility] unable to contact patient- closing referral Referral Priority Routine Reason Colonoscopy please.. . fam his of colon cancer Dr. Lucero Diagnosis 1 Colon cancer screeni ng (Z12.11) Referral Organization [facility] PED ABDIFATAH Referring Provider First Name David Referring Provider Last Name Jose Referring Provider Speciality Internal M edicine Referred Organization [facility] Referred Address [address] [facility], [place],[address],[place] Referred Provider Specialty General Surg lex General Notes Jaki Arthur 04/2024 10:45:11 AM > faxed and they will call her, Dedra Boyce 05/12/2024 12:18:51 PM >sent again, Dedra Boyce 06/14/2024 01:11:20 PM >Schedule with Dr. Lucero 07-05-24 Referral Priority Routine Referral Appointment Date 07/05/2024 Reason Please refer to Derm atologist at [facility] for recurrent skin lesions, needs full body skin cancer check. Diagnosis 1 Skin lesions (L98.9) Referral Organization [facility] Referring Provider First Name Erica Referring Provider Last Name Eva Referring Provider [facility] Referred Organization [facility] Referred Address [address] [facility], [place],[address],[place] Referred Provider Specialty Dermatology General Notes Dedra Boyce 2024 03:52:02 PM >Referral sent to Dr. Escalera, Dedra Boyce 07/23/2024 10:14:06 AM > resent Referral Priority Routine Reason Needs colonoscopy at [facility], first available-screening colonoscopy Diagnosis 1 Unspecified abdomina l pain (R10.9) Referral Organization [facility] ABDIF[facility] Referring Provider First Name David Referring Provider Last Name Jose Referring Provider Speciality Internal M edicine Referral Priority Routine Reason Home Sleep study Diagnosis 1 Chronic insomnia (F5 1.04) Referral Organization [facility] Referring Provider First Name Erica Referring Provider Last Name Caitlin Referring Provider Speciality Family Pra ctice Referred Organization [facility] Referred Address [address] [facility], [place],[address],[place] Referred Provider Specialty Sleep Study General Notes Dedra Boyce 2024 04:34:51 PM >sending to [facility] Referral Priority Routine Reason Please refer to [facility] for PT with neck and thoracic back pain. Diagnosis 1 Neck pain (M54.2) Referral Organization [facility] Referring Provider First Name Erica Referring Provider Last Name Eva Referring Provider Speciality Family Pra ctice Referred Organization [facility] Referred Address [address] [facility], [place],[address],[place] Referred Provider Specialty Physical The rapist General Notes Dedra Boyce 2024 09:06:15 AM >sent Referral Priority Routine Reason OT eval and treat Diagnosis 1 Acute pain of right shoulder (M25.511) Referral Organization [facility] Referring Provider First Name Ester Referring Provider Last Name Nick Referring Provider Speciality Family Pra ctice Referred Organization [facility] Referred Address [address], [place],[address],[place] Referred Provider Specialty Occupational Therapy General Notes Dedra Boyce 2024 11:49:35 AM >sent to [facility] rehab Referral Priority Routine Medications Medication SIG (Take, Route, Frequency, Duration) Notes Start Date End Date Status Loratadine 10 MG 1 tab(s) orally once a day; Duration: 30 days 05/18/2024 Active Sucralfate 1 GM 1 tab(s) orally 4 times a day (before meals and at bedtime); Duration: 10 days Active Cholecalciferol 50 MCG 1 TAB(S) ORALLY ONCE A DAY; Duration: 30 DAYS *Please review and pick correct strength-formulati on from Chute options. If intended option is not shown, discontinue and re-order from Quick Search* 07/12/2024 Active Fluticasone Propionate 50 MCG/ACT 1 spray(s) in each nostril twice daily; Duration: 30 days 06/22/2024 Active Farxiga 5 MG 1 tablet Orally Once a day; Duration: 30 days Active Cyclobenzaprine HCl 10 MG 1 tablet at bedtime as needed for muscle spasm Orally 3 times a day; Duration: 30 days Active Pantoprazole Sodium 40 MG 1 tab(s) orally once a day Active Dicyclomine HCl 20 MG 1 tab(s) orally 4 times a day PRN Active Carvedilol 12.5 MG TAKE ONE TABLET BY MOUTH TWICE DAILY; Duration: 30 days Active Ondansetron HCl 4 MG 1 tab(s) orally every 8 hours Active Sertraline HCl 100 mg TAKE ONE TABLET BY MOUTH EVERY DAY; Duration: 30 Active Celecoxib 200 mg 1 capsule orally twice a day; Duration: 30 days Active Valsartan-hydroCHLOROth iazide 320-25 MG 1 tab(s) orally once a day; Duration: 90 days 03/02/2023 Active buPROPion HCl ER (XL) 300 MG 1 tablet in the morning Orally Once a day; Duration: 30 days Active hydrOXYzine Pamoate 50 MG as directed orally as directed; Duration: 30 days Active Immunizations Vaccine Route Administration Date Status Jarred fletcher Flublok IM Intramuscular 04/13/2024 Administered Social History Tobacco Use: Social History Observation Description Date Details (start date - stop date) Former Smoker NA - NA Smoking: Question Answer Notes Are you a: former smoker How long has it been since you last smoked? > 10 years Problems Problem Type SNOMED Code ICD Code Onset Dates Problem Status W/U Status Risk Notes Problem Anxiety (95656936) Anxiety (F41.9) Active confi rmed Problem Sore throat (691549744) Sore throat (J02.9) Active confirmed Problem Morbid obesity (315560252) Morbid obesity (E66.01) Active confirmed Problem Essential hypertension (44263163) Essential hypertension (I10) Active confirmed Problem Gastroesophageal reflux disease (799553251) GERD without esophagitis (K21.9) Active confirmed Problem Body mass index 40+ - morbidly obese (950829007) BMI 40.0-44.9, adult (Z68.41) Active confirmed Problem Chronic pain (79320729) Other chronic pain (G89.29) Active confirmed Problem Neck pain (48175658) Neck pain (M54.2) Active confirmed Problem Tension headache (167729103) Tension headache (G44.209) Active confirmed Problem Chronic insomnia (067291055) Chronic insomnia (F51.04) Active confirmed Problem Fatty liver (374333885) Fatty liver (K76.0) Active confirmed Problem Mood disorder (93894172) Mood disorder (F39) Active confirmed Problem Skin sensation disturbance (50214790) Paresthesia of both feet (R20.2) Active confirmed Problem Generalized anxiety disorder (92347471) MADHAV (generalized anxiety disorder) (F41.1) Active confirmed Problem Neutrophilic leukocytosis (304104863) Neutrophilic leukocytosis (D72.9) Active confirmed Problem Sciatica (80129886) Acute left-sided low back pain with left-sided sciatica (M54.42) Active confirmed Problem Leukocytosis (806109419) Leukocytosis, unspecified (D72.829) Active confirmed Problem Amnesia (54411688) Memory change s (R41.3) Active confirmed Problem Type II diabetes mellitus without complication (090551349) Controlled type 2 diabetes mellitus without complication, without long-term current use of insulin (E11.9) Active confirmed Problem Seasonal allergic rhinitis (936169533) Seasonal allergic rhinitis, unspecified trigger (J30.2) Active confirmed Problem Type II diabetes mellitus without complication (382352720) New onset type 2 diabetes mellitus (E11.9) Active confirmed Problem Disorder of lumbar disc (002639272) Lumbar disc disease (M51.9) Active confirmed Problem Cough (38569416) Cough (R05.9) Active confirmed Vital Signs Heart Rate 84 /min 01/26/2025 Temperature 97.5 degrees Fahrenheit 01/26/2025 Blood pressure diastolic 88 mm Hg 01/26/2025 Height 5 ft 7 in in 01/26/2025 Blood pressure systolic 124 mm Hg 01/26/2025 Weight 246.6 lbs 01/26/2025 BMI 38.62 kg/m2 01/26/2025 Encounters Encounter Location Date Provider Diagnosis [facility] [address] [facility] [address] [place], [place] [address] 08/06/2024 Provider Migration [facility] [address] [facility] [address] [place], [place] [address] 01/26/2025 Ester McRebekah Acute pain of right shoulder M25.511 [facility] [address] [address] 02/19/2024 Ester McNees Essential (primary) hypertension I10 ; MADHAV (generalized anxiety disorder) F41.1 ; Lumbar disc disease M51.9 ; Chronic insomnia F51.04 and Arthralgia of multiple joints M25.50 [facility] [address] [facility] [address] [place] [address] 03/03/2024 Ester McNees Acute cystitis with hematuria N30.01 ; Acute left-sided low back pain with left-sided sciatica M54.42 ; Essential hypertension I10 and Mood disorder F39 [facility] [address] [facility] [address] [place] [address] 04/06/2024 David Garcia Acute abdominal pain R10.9 [facility] [address] [place] [address] 04/13/2024 David Garcia Acute abdominal pain R10.9 ; Breast cancer screening by mammogram Z12.31 ; Colon cancer screening Z12.11 ; Immunization(s) administered Z23 and Routine medical exam Z00.00 [facility] [address] [place] [address] 05/05/2024 Erica Velasquez Acute suppurative otitis media of right ear without spontaneous rupture of tympanic membrane, recurrence not specified H66.001 and Acute URI J06.9 [facility] [address] [place] [address] 05/18/2024 Erica Velasquez Skin lesions L98.9 ; Sore throat J02.9 and Right acute serous otitis media, recurrence not specified H65.01 [facility] [address] [place] [address] 06/22/2024 David Garcia Seasonal allergic rhinitis, unspecified trigger J30.2 ; MADHAV (generalized anxiety disorder) F41.1 ; Unspecified abdominal pain R10.9 and Other chronic pain G89.29 [facility] [address] [address] 07/06/2024 Erica Caitlin Pain in right hand M79.641 ; Pain in left hand M79.642 ; Right hip pain M25.551 ; Memory changes R41.3 ; Controlled type 2 diabetes mellitus without complication, without long-term current use of insulin E11.9 and Chronic insomnia F51.04 [facility] [address] [place] [address] 08/11/2024 Erica Velasquez Neck pain M54.2 ; Essential (primary) hypertension I10 and MADHAV (generalized anxiety disorder) F41.1 [facility] [address] [place] [address] 09/13/2024 Erica Tucker Mood disorder F39 ; Lumbar disc disease M51.9 ; Other chronic pain G89.29 and Tension headache G44.209 [facility] [address] [place] [address] 10/24/2024 Erica Tucker Mood disorder F39 ; Lumbar disc disease M51.9 and Other chronic pain G89.29 [facility] [address] [place] [address] 12/05/2024 Erica Tucker Mood disorder F39 ; Controlled type 2 diabetes mellitus without complication, without long-term current use of insulin E11.9 ; Lumbar disc disease M51.9 ; Other chronic pain G89.29 and Essential hypertension I10 [facility] [address] [place] [address] 01/19/2025 Erica Tucker Mood disorder F39 ; Controlled type 2 diabetes mellitus without complication, without long-term current use of insulin E11.9 ; Lumbar disc disease M51.9 ; Other chronic pain G89.29 ; Essential hypertension I10 and Back strain, initial encounter S39.012A [facility] [address] [place] [address] 04/14/2024 David Garcia Breast cancer screening by mammogram Z12.31 [facility] [address] [place] [address] 05/05/2024 David Besson [facility] [address] [place] [address] 07/12/2024 Erica Tucker [facility] [address] [place] [address] 08/11/2024 Erica Velasquez MADHAV (generalized anxiety disorder) F41.1 [facility] [address] [place] [address] 08/12/2024 David Besson Neck pain M54.2 and Back pain M54.9 [facility] [address] [place] [address] 09/13/2024 Erica Tucker Neck pain M54.2 and Back pain M54.9 [facility] [address] [place] [address] 10/24/2024 David Garcia [facility] [address] [address] 11/10/2024 Erica Tucker Essential (primary) hypertension I10 and MADHAV (generalized anxiety disorder) F41.1 [facility] [address] [address] 12/14/2024 Erica Tucker Controlled type 2 diabetes mellitus without complication, without long-term current use of insulin E11.9 [facility] [address] [address] 01/06/2025 David Garcia [facility] ABDIF[facility]H [address] [place] [address] 01/26/2025 Ester MartyAdelashakira Acute pain of right shoulder M25.511 Assessments Encounter Date Diagnosis (ICD Code) Assessment Notes Treatment Notes Treatment Clinical Notes Section Notes 02/19/2024 Essential (primary) hypertension (ICD-10 - I10) [...] Acute cystitis with hematuria (ICD-10 - N30.01) [facility] records reviewed. Urine cx prelim- gram - [...] 05/18/2024 Sore throat (ICD-10 - J02.9) 05/18/2024 Skin lesions (ICD-10 - L98.9) At [...] in left hand (ICD-10 - M79.642) 08/11/2024 Essential (primary) hypertension (ICD-10 - I10) [...] 09/13/2024 Lumbar disc disease (ICD-10 - M51.9) 09/13/2024 Neck pain (ICD-10 - M54.2) 10/24/2024 Mood disorder (ICD-10 - F39) Some [...] 11/10/2024 Essential (primary) hypertension (ICD-10 - I10) 12/05/2024 Mood disorder (ICD-10 - F39) continue [...] current use of insulin (ICD-10 - E11.9) 01/19/2025 Mood disorder (ICD-10 - F39) continue [...] Will resume Farxiga which she tolerated previously 01/26/2025 Acute pain of right shoulder (ICD-10 - M25.511) Obvious bursitis on exam. Given injury will obtain xray. Rest, heat/ice, dexamethasone IM, refer to OT 01/26/2025 Acute pain of right shoulder (ICD-10 - M25.511) 01/19/2025 Lumbar disc disease (ICD-10 - M51.9) May take Celebrex twice a day as needed and continue cyclobenzaprine. Possible side effects and return precautions were reviewed as well 12/05/2024 Lumbar disc disease (ICD-10 - M51.9) May take Celebrex twice a day as needed and continue cyclobenzaprine. Possible side effects and return precautions were reviewed as well 11/10/2024 MADHAV (generalized anxiety disorder) (ICD-10 - F41.1) 10/24/2024 Other chronic pain (ICD-10 - G89.29) 09/13/2024 Back pain (ICD-10 - M54.9) 09/13/2024 [...] agrees with the plan of care above. 07/06/2024 Right hip pain (ICD-10 - M25.551) 06/22/2024 Unspecified abdominal pain (ICD-10 - R10.9) Better with Carafate. Colonoscopy did not get scheduled. We will make this referral once again. I will see her in 3 months 04/13/2024 Colon cancer screening (ICD-10 - Z12.11) 05/18/2024 Right acute serous otitis media, recurrence not specified (ICD-10 - H65.01) No active infection. Flonase bid x 7 days then once daily, continue antihistamine. Follow-up if develops fever, pain, hearing loss, worsening symptoms, or no improvement in a week. Warm compress to right neck. 03/03/2024 Essential hypertension (ICD-10 - I10) Restart coreg, b/p check in 2 weeks 02/19/2024 Lumbar disc disease (ICD-10 - M51.9) Celebrex as below. Stretches, warm compresses, muscle relaxer prn 02/19/2024 Chronic insomnia (ICD-10 - F51.04) Restart hydroxyzine at HS, start with 1 tab QHS x 7 days then increase to 2 if insomnia persists 03/03/2024 Mood disorder (ICD-10 - F39) Stable on current regimen. No changes made today 04/13/2024 Immunization(s) administered (ICD-10 - Z23) 06/22/2024 Other chronic pain (ICD-10 - G89.29) 07/06/2024 Memory changes (ICD-10 - R41.3) discussed that this is often related to poor sleep, poorly controlled depression and/or anxiety symptoms. Rec labs, home sleep study. Consider brain imaging and/or referral pending those results/symptoms 09/13/2024 Tension headache (ICD-10 - G44.209) 12/05/2024 Other chronic pain (ICD-10 - G89.29) 01/19/2025 Other chronic pain (ICD-10 - G89.29) 12/05/2024 Essential hypertension (ICD-10 - I10) plans to reschedule cardiology FU 01/19/2025 Essential hypertension (ICD-10 - I10) improved 07/06/2024 Controlled type 2 diabetes mellitus without complication, without long-term current use of insulin (ICD-10 - E11.9) 04/13/2024 Routine medical exam (ICD-10 - Z00.00) [...] Start celebrex. Will re-evaluate symptoms at FU 07/06/2024 Chronic insomnia (ICD-10 - F51.04) 01/19/2025 Back strain, initial encounter (ICD-10 - S39.012A) Rec moist heat, steroid injection today as noted, return precautions reviewed 08/11/2024 Other Patient discussed with Attending Dr. Garcia who agrees with the plan of care above. Plan Of Treatment Pending Test Test Name Order Date X ray : Spines, Lumbosacral 11/28/2021 X ray : Spines, Cervical 08/11/2024 X ray : Shoulder, Right 01/26/2025 X ray : Spines, Thoracic Spine CT Scan : Abdomen/Pelvis stone protocol 08/20/2022 Mammogram : Bilateral 04/14/2024 Occupational Therapy : Eval & Treatment 01/26/2025 Dietary Consult 06/23/2022 M-Comprehensive Metabolic Panel 10/17/19 23 M-Hemoglobin A1C 10/16/2022 M-Hemoglobin A1C 03/02/2023 M-Thyroid Stimulating Hormone 03/02/2023 M-Vitamin B12 03/02/2023 M-Vitamin B12 07/06/2024 M-Vitamin D 25 Hydroxy 07/06/2024 M-Folate 07/06/2024 M-Folate 03/02/2023 G-Iqxw-Qitdow Citrullinated Pept 025 M-Microalb/Creat Ratio, Randm Ur 023 Comprehensive Metabolic Panel (CMP) 06/2021 Physical Therapy Eval and Treat 09/14/19 Physical Therapy Eval and Treat 08/13/19 25 Next Appt Details Provider Name:Erica Ramos ce, 03/02/2025 08:45:00 AM, [address], [place], [address], Insurance Providers Payer Name Payer Address Payer Phone Subscriber Number Group Number Insured Name Patient Relationship to Insured Coverage Start Date Coverage End Date [employer] [facility] [address] [address] [place] [address] [id number] Jasmin Zamorano Self - patient is the insured Medications Administered Medication Instructions Date of Administration Dosage Notes Dexamethasone 4mg Injection 07/01/2022 4 mg Dexamethasone 4mg Injection 01/19/2025 4 mg Dexamethasone 4mg Injection 01/26/2025 4 mg Medical (General) History Medical History [...] from thumb 09/2024 Hospitalization History Reason Date(Month/Year) [facility]- Kidney Stone. 07/25-03/08 lipitripsy x 1
--- OUTSIDE RECORDS SUMMARY | 2025-01-26 12:00 | XMS_ITS | Clinical Summary ---
Author Organization Healthcare Address [address] [place] [address] Care Team Providers Care Registered Nurse Step Down Name Role Phone Kaya Braden TECHNICAL SERVICES COORDINATOR Unavailable [phone] Erica Tucker TECHNICAL SERVICES COORDINATOR Primary Care Provider [phone] Allergies Active Allergy Reactions Criticality Noted Date [...] COMFORT PAC) 4 MG misc 2 Active [place] 0.65 % nasal spray INSTILL 2 SPRAYS [...] 2022 Sigmoidoscopy 2022 [facility]-Colorectal Cancer Screening 2022 [id number] Vaccine ( season) 2025 04/09/2021, 10/02/2020, 09/04/2020 [facility]-Influenza Vaccine (#1) 01/02/202504/13, [...] age to complete this topic Insurance [employer] [facility] MEDICAID Care Teams Registered Nurse Step Down Relationship Specialty Start Date End Date Erica Tucker APRN [address] [facility] [address] [facility] [address] [place] [address] PCP - General 09/01/22 Kaya Braden APRN [address] [facility] [address] [place] [address] Nurse Practitioner Neurosurgery 09/01/22
== END 2025-01-26 23:59 | disposition home or self-care (01) ==
LOC: RAD 11:54
PROVIDERS: PCP Nurse Practitioner Family; Visit Provider Nurse Practitioner Family
DX: M19.011 Primary osteoarthritis, right shoulder (principal)
CPT/HCPCS: 73030

== ENCOUNTER 2025-02-22 13:04 | Outpatient (RCR) | payer OTHER, SELFPAY ==
--- NOTE | 2025-02-22 15:07 | HMH.OTOPEV ---
OT Evaluation Rehab OT Outpatient Eval Start: 02/22/25 13:10 Freq: Status: Active Protocol: Document 02/22/25 13:53 DAPHNEYNICOLASA (Rec: 02/22/25 14:49 CHUCKIE [id number]) E-signed By Ana Dumont, OT Outpatient Therapy Subjective History Subjective History Patient is a 50-year-old female referred to skilled outpatient OT services for right shoulder impingement. X-ray completed on 01/26/25 revealed mild degenerative changes with no acute abnormalities. Patient received a cortisone injection to the right shoulder on 02/09/25 with no reported relief. Patient denies any known injury contributing to the onset of right shoulder pain but reports that the pain has become increasingly consistent and constant over time. 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 Patient presents with right shoulder impingement and pain impacting ability to perform work duties and ADL tasks effectively and safely. Functional deficits include decreased strength, endurance, and range of motion of the right upper extremity, with pain affecting occupational performance. Patient would benefit from skilled OT intervention to decrease pain, improve strength and mobility, and promote functional independence in daily and work-related activities. Chief Complaint Pain Symptom Type Ache,Throb,Sharp Symptoms Relieved By Nothing Symptoms Aggravated Bending/Stooping By Prior Functional None Limitations Current Functional Reaching,Lifting,Sleeping Limitations Symptom Description Intermittent Level of pain today 0 (0-10) Pain scale - at its 0 best (0-10) Pain scale - at its 10 worst (0-10) Shoulder/Elbow Eval Shoulder Objective Measurements Shoulder ROM Right Shoulder Abduction 150 Active Range of Motion (degrees) Shoulder Flexion 90 Active Range of Motion (degrees) Query Text: Shoulder External 40 Rotation Active Range of Motion ( degrees) Shoulder Internal 40 Rotation Active Range of Motion ( degrees) pain with active ROM right shoulder exam standard Shoulder MMT Upper Trapezius/ 3 Fair Levator Scapulae Shoulder Abduction 3 Fair Strength Grade Shoulder Extension 3 Fair Strength Grade Shoulder Flexion 3 Fair Strength Grade Shoulder Horizontal 3 Fair Abduction Strength Grade Shoulder Horizontal 3 Fair Adduction Strength Grade Infraspinatus/Teres 3 Fair Minor Strength Grade Shoulder External 3 Fair Rotation Strength Grade Shoulder Internal 3 Fair Rotation Strength Grade Shoulder Special Tests impingement sign right present shoulder exam standard Shoulder Empty Can ( Positive Right Supraspinatus) Test Shoulder Flores- Positive Right Lamberto Impingement Test Elbow Objective Measurements QuickDASH Activities Please rate your ability to do the following activities in the last week by selecting the number below the appropriate response. 1. Open a tight or Mild difficulty new jar. 2. Do heavy Moderate difficulty horse rancher (e. g., wash concepcion, floors). 3. Carry a shopping No difficulty bag or briefcase. 4. Wash your back. Moderate difficulty 5. Use a knife to No difficulty cut food. 6. Recreational Moderate difficulty activities in which you take some force or impact through your arm, shoulder, or hand (e.g., golf, hammering, tennis, etc.). 7. During the past Quite a bit week, to what extent has your arm, shoulder or hand problem interfered with your normal social activities with family, friends , neighbors or groups? 8. During the past Very limited week, were you limited in your work or other regular daily activites as a result of your arm, shoulder or hand problem? 9. Arm, shoulder or Extreme hand pain. 10. Tingling (pins Mild and needles) in your arm, shoulder or hand. 11. During the past Moderate difficulty week, how much difficulty have you had sleeping because of the pain in your arm, shoulder or hand? Quick DASH 31 OT Patient Goals OT Patient Goals OT Short Term 1. Patient will demonstrate improved right shoulder Patient Goals AROM by at least 10?15 degrees in flexion and abduction to increase ability to reach overhead for ADL tasks. 2. Patient will report a decrease in pain to =4/10 during light ADL and work-related activities. 3. Patient will demonstrate proper body mechanics and joint protection techniques during simulated lifting and carrying tasks with minimal verbal cues. 4. Patient will be independent with home exercise program (HEP) for right shoulder mobility and strengthening. OT Long-Term Patient 1. Patient will demonstrate right shoulder strength of Goals 4+/5 or greater to support performance of moderate to heavy lifting required for work tasks. 2. Patient will report pain =2/10 during functional and occupational activities, including lifting, reaching, and carrying. 3. Patient will demonstrate full functional ROM in right shoulder to allow completion of all ADL and IADL tasks without compensatory movement. 4. Patient will return to prior level of function at work with minimal or no pain interference. OT Outpatient Assessment Impairments Problems/Impairments Impaired Range of Motion,Impaired Strength,Subjective C /O Pain Prognosis Rehab Potential Good Clinical Impression Consistent with Yes Diagnosis Outpatient Therapy Plan of Care Treatment Plan May Include Therapeutic Exercise Yes Including Home Exercise Program Manual Therapy Yes Techniques Therapeutic Yes Activities to Return to Previous Functional/Work Level Thermal Modalities Yes Electrical Yes Stimulation Ultrasound/ Yes Phonophoresis Iontophoresis Yes Eval/Re-Eval Yes Aquatic Therapy Yes Frequency Times per week 2x/wk Duration Number of Weeks 4 weeks Addendums This patient is a No candidate for social or vocational rehab ? Patient/Guardian Yes verbally acknowledges understanding of treatment program and consents to further treatment? Patient/Guardian Yes verbally acknowledges understanding of diagnosis, prognosis and goals for treatment? Eval Complexity OT Charge 11820 - Moderate Complexity PHYSICIAN CERTIFICATION: I certify the specified therapy services for Jasmin Brooke are required, authorized, and reviewed every 30 days.
== END 2025-02-22 23:59 | disposition home or self-care (01) ==
LOC: OT 13:04
PROVIDERS: PCP Nurse Practitioner Family; Visit Provider Physician Assistant Surgical
DX: M75.41 Impingement syndrome of right shoulder (principal)
CPT/HCPCS: 97166

== ENCOUNTER 2025-02-23 10:53 | Outpatient (CLI) | payer OTHER, SELFPAY ==
--- OUTSIDE RECORDS SUMMARY | 2024-08-30 05:15 | XMS_ITS ---
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 Name Role Phone David Garcia Primary Care Provider [phone] Erica Tucker Unavailable [phone] REASON FOR VISIT FU Encounters Encounter Location Date Provider Diagnosis [facility] [address] [place], [place] [address] 08/30/2024 Erica Tucker Plan Of Treatment Next Appt Details Provider Name:Erica Ramos ce, 03/02/2025 08:45:00 AM, [address], [address], [place], [place], [address], Progress Notes * Jasmin JORGEDOB:[birth year] (50 yo F)Acc No.[id number]:08/30/2024 Progress Notes Patient: Lisbeth Jasmin CARPENTER Provider: LINDA Rojas :1975 A ge:49 Y S ex:Female Date:08/30/2024 Address:[id number] Pcp:David Garcia Subjective: * Chief Complaints: * 1 . FU. * Medical History: Objective: * Vitals: Assessment: Plan: * Treatment: * * Electronic signature of Haleigh Tucker APRN on 02/24/2025 at 10:47 AM EDT Sign off status: Pending * Provider: LINDA Rojas Date: 0 08/30/2024 Generated for Elsie mcnair/Remy/Maikol on: 1 10:47 AM EDT
--- OUTSIDE RECORDS SUMMARY | 2024-09-19 08:30 | XMS_ITS ---
Author Organization [facility] Address [address] [place] [address] Care Team Providers Care Drum Dyeing Machine Operator Name Role Phone David Garcia Primary Care Provider REASON FOR VISIT 3 month check up Encounters Encounter Location Date Provider Diagnosis [facility] [address] [place], [place] [address] 09/19/2024 David Garcia Plan Of Treatment Next Appt Details Provider Name:Erica Ramos ce, 03/02/2025 08:45:00 AM, [address], [place], [place], [address], Progress Notes * Jasmin JORGEDOB:[birth year] (50 yo F)Acc No.[id number]:09/19/2024 Progress Notes Patient: Lisbeth RODRIGUEZ Jasmin HAAS Provider: Isabel Garcia MD :1975 A ge:49 Y S ex:Female Date:09/19/2024 Address[id number] Subjective: * Chief Complaints: * 1 . 3 month check up. * Medical History: Objective: * Vitals: Assessment: Plan: * Treatment: * * Electronic signature of Chidi Garcia MD FAAP on 02/24/2025 at 10:47 AM EDT Sign off status: Pending * Provider: Isabel Garcia MD Date: 09/19/2024 Generated for Elsie mcnair/Remy/Maikol on: 1 10:47 AM EDT
--- OUTSIDE RECORDS SUMMARY | 2024-10-11 05:00 | XMS_ITS ---
Author Organization [facility] Address [address] [place] [address] Care Team Providers Care Hospice Administrator Name Role Phone David Garcia Primary Care Provider Erica Tucker Unavailable [phone] REASON FOR VISIT 4 wk FU Encounters Encounter Location Date Provider Diagnosis [facility] [address] [place], [place] [address] 10/11/2024 Erica Tucker Plan Of Treatment Next Appt Details Provider Name:Erica Ramos ce, 03/02/2025 08:45:00 AM, [address], [address], [place], [address], Progress Notes * Jasmin JORGEDOB:[birth year] (50 yo F)Acc No.[id number]:10/11/2024 Progress Notes Patient: Lisbeth Jasmin CARPENTER Provider: [...] 0 10/11/2024 Generated for Elsie mcnair/Remy/Maikol on: 1 10:47 AM EDT
--- OUTSIDE RECORDS SUMMARY | 2025-01-19 04:45 | XMS_ITS ---
Author Organization [facility] PE D ABDIFATA[facility] Address [address] [place] [address] Care Team Providers Care Remote Broadcast Technician Name Role Phone David Garcia Primary Care Provider Erica Tucker Unavailable [phone] Allergies Allergen (clinical drug ingredient) Drug/Non Drug Allergy documented on EMR Reaction Allergy Type Onset Date Status Information temporarily unavailable Reglan shakes Drug Allergy Active Information temporarily unavailable NIFEdipine swelling Drug Allergy Active Information temporarily unavailable Amoxicillin hives Drug Allergy Active Information temporarily unavailable Ibuprofen stomach upset Drug Allergy Active Information temporarily unavailable Penicillin hives Drug Allergy Active Information temporarily unavailable amLODIPine swelling Drug Allergy Active REASON FOR VISIT 6 Week Follow up- Having some back pain, Had nausea and diarrhea for about 3 weeks Medications Medication SIG (Take, Route, Frequency, Duration) Notes Start Date End Date Status Ondansetron 4 MG 1 tablet on the tongue and allow to dissolve Orally 3 times a day; Duration: 7 days As needed 01/06/2025 Active metFORMIN HCl 500 mg TAKE ONE TABLET BY MOUTH TWICE DAILY - TAKE WITH FOOD-; Duration: 30 Active Cyclobenzaprine HCl 10 MG 1 tablet at bedtime as needed for muscle spasm Orally 3 times a day; Duration: 30 days Active Sertraline HCl 100 mg TAKE ONE TABLET BY MOUTH EVERY DAY; Duration: 30 Active Carvedilol 6.25 mg TAKE ONE TABLET BY MOUTH TWICE DAILY; Duration: 30 Active Valsartan-hydroCHLOROth iazide 320-25 MG 1 tab(s) orally once a day; Duration: 90 days 03/02/2023 Active Celecoxib 200 mg 1 capsule orally twice a day; Duration: 30 days Active Farxiga 5 MG 1 tablet Orally Once a day; Duration: 30 days Active hydrOXYzine Pamoate 50 MG as directed orally as directed; Duration: 30 days Active buPROPion HCl ER (XL) 300 MG 1 tablet in the morning Orally Once a day; Duration: 30 days Active Cholecalciferol 50 MCG 1 TAB(S) ORALLY ONCE A DAY; Duration: 30 DAYS *Please review and pick correct strength-formulati on from [employer] options. If intended option is not shown, discontinue and re-order from [employer]* 07/12/2024 Active Loratadine 10 MG 1 tab(s) orally once a day; Duration: 30 days 05/18/2024 Active Fluticasone Propionate 50 MCG/ACT 1 spray(s) in each nostril twice daily; Duration: 30 days 06/22/2024 Active Ondansetron HCl 4 MG 1 tab(s) orally every 8 hours Active Sucralfate 1 GM 1 tab(s) orally 4 times a day (before meals and at bedtime); Duration: 10 days Active Dicyclomine HCl 20 MG 1 tab(s) orally 4 times a day PRN Active Pantoprazole Sodium 40 MG 1 tab(s) orally once a day Active Social History Tobacco Use: Social History Observation Description Date Details (start date - stop date) Former Smoker NA - NA Smoking: Question Answer Notes Are you a: former smoker How long has it been since you last smoked? > 10 years Vital Signs Temperature 97.5 degrees Fahrenheit 01/20/20 25 Blood pressure systolic 106 mm Hg 01/20/20 25 Blood pressure diastolic 78 mm Hg 025 Heart Rate 68 /min 01/19/2025 Height 5 ft 7 in in 01/19/2025 Weight 246.2 lbs 01/19/2025 BMI 38.56 kg/m2 01/19/2025 Encounters Encounter Location Date Provider Diagnosis [facility] [address] [place] [address] 01/19/2025 Erica Tucker Mood disorder F39 ; Controlled type 2 diabetes mellitus without complication, without long-term current use of insulin E11.9 ; Lumbar disc disease M51.9 ; Other chronic pain G89.29 ; Essential hypertension I10 and Back strain, initial encounter S39.012A Assessments Encounter Date Diagnosis (ICD Code) Assessment Notes Treatment Notes Treatment Clinical Notes Section Notes 01/19/2025 Mood disorder (ICD-10 - F39) continue Wellbutrin to 300 mg once a day. Continue her other current regimen, return precautions reviewed 01/19/2025 Controlled type 2 diabetes mellitus without complication, without long-term current use of insulin (ICD-10 - E11.9) continue effort with 1500 ana m diet and increasing daily activity as tolerated, especially on her days out of work. Will resume Farxiga which she tolerated previously 01/19/2025 Lumbar disc disease (ICD-10 - M51.9) May take Celebrex twice a day as needed and continue cyclobenzaprine . Possible side effects and return precautions were reviewed as well 01/19/2025 Other chronic pain (ICD-10 - G89.29) 01/19/2025 Essential hypertension (ICD-10 - I10) improved 01/19/2025 Back strain, initial encounter (ICD-10 - S39.012A) Rec moist heat, steroid injection today as noted, return precautions reviewed Plan Of Treatment Medication Medication Name Sig Start Date Stop Date Notes Farxiga 5 MG 1 tablet Orally Once a day; Duration: 30 days Next Appt Details Follow Up: 6 Weeks, Reason: Provider Name:Erica Ramos ce, 03/02/2025 08:45:00 AM, [address] [place] [facility] [address] [facility], [address], [place], [address], Medications Administered Medication Instructions Date of Administration Dosage Notes Dexamethasone 4mg Injection 01/19/2025 4 mg Progress Notes * Jasmin JORGEDOB:[birth year] (49 yo F)Acc No.[id number]:01/19/2025 Progress Notes Patient: Lisbeth Jasmin CARPENTER Provider: LINDA Rojas :1975 A ge:49 Y S ex:Female Date:01/19/2025 Address:[address] [place], [place] [address], [id number] Pcp:David Garcia Subjective: * Chief Complaints: * 1 . 6 Week Follow up- Having some back pain. 2. Had nausea and diarrhea for about 3 weeks. * HPI: g en: Presents today for 6-week follow-up.Last visit we prescribed Farxiga but insurance required a failure of metformin. She has been taking this and not sure if related but she has been having nausea and diarrhea for about 3 weeks. Seems to be worse after eating. No fevers, no blood in stool. Mood has been stable. She does report increased right sided mid back pain after an incident at work. Otherwise her chronic back pain has been at baseline and she is taking Celebrex twice a day, cyclobenzaprine as needed. No radicular symptoms or new paresthesias. Cardiology has adjusted her antihypertensive regimen and she reports better blood pressure readings. No chest pain or shortness of breath. * ROS: C ONSTITUTIONAL: See HPI Y [...] stic Procedure: l ipitripsy x 1 , [facility]- Kidney Stone. 03/06/24-03/08. * Family History: [...] no. Travel outside [place]: no. 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 * Medications: T aking Dicyclomine HCl 20 [...] *Please review and pick correct strength-formulation from [employer]an options. If intended option is not shown, discontinue and re-order from Quick Search*, Taking Valsartan-hydroCHLOROthiazide 320-25 MG Tablet 1 tab(s) orally once a day , Taking Celecoxib 200 mg Capsule 1 capsule orally twice a day , Taking hydrOXYzine Pamoate 50 MG Capsule as directed orally as directed , Taking buPROPion HCl ER (XL) 300 MG Tablet Extended Release 24 Hour 1 tablet in the morning Orally Once a day , Taking Ondansetron 4 MG Tablet Disintegrating 1 tablet on the tongue and allow to dissolve Orally 3 times a day As needed, Taking metFORMIN HCl 500 mg Tablet TAKE ONE TABLET BY MOUTH TWICE DAILY - TAKE WITH FOOD- , Taking Sertraline HCl 100 mg Tablet TAKE ONE TABLET BY MOUTH EVERY DAY , Taking Carvedilol 6.25 mg Tablet TAKE ONE TABLET BY MOUTH TWICE DAILY , Taking Cyclobenzaprine HCl 10 MG Tablet 1 tablet at bedtime as needed for muscle spasm Orally 3 times a day , Medication List reviewed and reconciled with the patient * Allergies: a mLODIPine: swelling, Ibuprofen: stomach upset, Amoxicillin: hives, Reglan: shakes, Penicillin: hives, NIFEdipine: swelling. Objective: * Vitals: N urse: KJ, Pain: 9, Temp: 97.5, RR: 18, HR: 68, BP: 106/78, Ht: 5 ft 7 in, Wt: 246.2, BMI:38.56. * Examination: P sychology: General Appearance: N AD, pleasant. Grooming : a dequate. Eye contact : n ormal. Mood : p leasant. Heart: R egular Rate and Rhythm, no murmur, rubs or gallops. Lungs: L CTAB, No wheezes, crackles or rhonchi, Good air movement,. t abhi mid back on the right side with muscle spasm, gait is normal. Assessment: * Assessment: 1. C ontrolled type 2 diabetes mellitus without complication, without long-term current use of insulin - E11.9 (Primary) 2 . M ood disorder - F39 3 . L umbar disc disease - M51.9 4 . O ther chronic pain - G89.29 5 . Essential hypertension - I10 6 . B ack strain, initial encounter - S39.012A? Plan: * Treatment: 2. M ood disorder Clinical Notes: continue Wellbutrin to 300 mg once a day. Continue her other current regimen, return precautions reviewed 3. L umbar disc disease Clinical Notes: May take Celebrex twice a day as needed and continue cyclobenzaprine. Possible side effects and return precautions were reviewed as well 4. E ssential hypertension Clinical Notes: improved 5. B ack strain, initial encounter Clinical Notes: Rec moist heat, steroid injection today as noted, return precautions reviewed ? * Therapeutic Injections: Dexamethasone 4mg Injection : 4 mg (Route: Intramuscular) given by NOY Gómez on right gluteus * Procedure Codes: J 1100 Dexamethasone Sodium Phosphate 4mg Injection, 78581 THERAPEUTIC ADMINISTRATION * Follow Up: 6 Weeks * * Sign off status: Completed true * Provider: LINDA Rojas Date: 0 01/19/2025 Generated for Elsie mcnair/Remy/Maikol on: 1 10:48 AM EDT History and Physical Notes * HPI (History of Present Illness) Category Sub-Category Detail Notes Category Not es gen Presents today for 6-week follow-up.Last visit we prescribed Farxiga but insurance required a failure of metformin. She has been taking this and not sure if related but she has been having nausea and diarrhea for about 3 weeks. Seems to be worse after eating. No fevers, no blood in stool. Mood has been stable. She does report increased right sided mid back pain after an incident at work. Otherwise her chronic back pain has been at baseline and she is taking Celebrex twice a day, cyclobenzaprine as needed. No radicular symptoms or new paresthesias. Cardiology has adjusted her antihypertensive regimen and she reports better blood pressure readings. No chest pain or shortness of breath Examination Category Sub-Category Detail Notes Category Not es Psychology Heart: Regular Rate and Rhythm, no murmur, rubs or gallops tender mid back on the right side with muscle spasm, gait is normal Lungs: LCTAB, No wheezes, c rackles or rhonchi, Good air movement, General Appearance: NAD, pleasant Grooming : adequate Eye contact : normal Mood : pleasant
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
--- OUTSIDE RECORDS SUMMARY | 2025-01-26 07:48 | XMS_ITS ---
Author Organization [facility] Address [address] [facility] [address] [place] [address] Care Team Providers Care Chairperson Anesthesiology Name Role Phone GradybrianDavid Primary Care Provider Ester Romero Unavailable [phone] REASON FOR VISIT OT orders Encounters Encounter Location Date Provider Diagnosis [facility] [address] [place], [place] [address] 01/26/2025 Ester Nick Acute pain of right shoulder M25.511 Assessments Encounter Date Diagnosis (ICD Code) Assessment Notes Treatment Notes Treatment Clinical Notes Section Notes 01/26/2025 Acute pain of right shoulder (ICD-10 - M25.511) Plan Of Treatment Pending Test Test Name Order Date Occupational Therapy : Eval & Treatment 01/26/2025 Next Appt Details Provider Name:Erica sylvester, 03/02/2025 08:45:00 AM, [address] [facility], [address], [place], [place], [address], Progress Notes * Jasmin JORGEDOB:[birth year] (49 yo F)Acc No.[id number]:01/26/2025 Patient: Lisbeth Jasmin CARPENTER :1975 A ge:49 Y S ex:Female Address:[address] [place] [address] [place], [address] Subjective: * Chief Complaints: * O T orders * Medical History: * Surgical History: * Hospitalization/Major Diagno stic Procedure: * Medications: Objective: * Vitals: * Physical Examination: Assessment: * Assessment: 1. A cute pain of right shoulder - M25.511 Plan: * Treatment: * Procedure Codes: * true * Date: Generated for Elsie mcnair/Remy/Maikol on: 10:48 AM EDT
[2025-02-23 15:12] LABS: Coronavirus 19, PCR Not Detected (NotDetected); Influenza A, PCR Not Detected (NotDetected); Influenza B, PCR Not Detected (NotDetected)
--- OUTSIDE RECORDS SUMMARY | 2025-02-24 10:47 | XMS_ITS | Clinical Summary ---
Author Organization Healthcare Address [address] [place] [address] Care Team Providers Care Computer Aide Name Role Phone Kaya Braden POOL TABLE OPERATOR Unavailable [phone] Erica Tucker POOL TABLE OPERATOR Primary Care Provider [phone] Allergies Active Allergy Reactions Criticality Noted Date [...] COMFORT PAC) 4 MG misc 2 Active [place] 0.65 % nasal spray INSTILL 2 SPRAYS [...] 2022 Sigmoidoscopy 2022 [facility]-Colorectal Cancer Screening 2022 [id number] Vaccine ( season) 2025 04/09/2021, 10/02/2020, 09/04/2020 [...] age to complete this topic Insurance [employer] [facility] MEDICAID Care Teams Computer Aide Relationship Specialty Start Date End Date Erica Tucker APRN [address] [facility] [address] [facility] [address] [place] [address] PCP - General 09/01/22 Kaya Braden APRN [address] [facility] [address] [place] [address] Nurse Practitioner Neurosurgery 09/01/22
--- OUTSIDE RECORDS SUMMARY | 2025-02-24 10:47 | XMS_ITS | Patient Health Record ---
Author Organization [facility] Address [address] [place] [address] Care Team Providers Care Composing Machine Operator Name Role Phone Jose David Primary Care Provider Erica Tucker Unavailable [phone] Ester Romero Unavailable [phone] Erica Velasquez Unavailable [phone] Migration, Provider Unavailable Unavailable Allergies Allergen (clinical [...] Active Results Component Value Reference Range Notes Rapid Strep Reviewed date:05/18/2024 03:58:58 PM Interpretation:Negative Performing Lab: Notes/Report: Negative X ray : Shoulder, Right Reviewed date:01/30/2025 [...] Performing Lab: Notes/Report: ESR 35 0-20 mm/hr M-Comprehensive Metabolic Pa laureano Reviewed date:07/08/2024 07:07:43 [...] AGRATIO 1.7 1.1-1.8 ALP 109 38-126 U/L M-Hemoglobin A1C Reviewed date:07/07/2024 05:35:31 PM Interpretation: Performing Lab: Notes/Report: HGBA1C 4.4 4.0-6.0 % < 6% Non-Diabetic Level < 7% Controlled Diabetic Level > 8% Poorly Controlled Diabetic Level M-Uric Acid Reviewed date:07/07/2024 05:35:40 PM Interpretation: Performing Lab: Notes/Report: URIC 3.5 2.5-6.2 mg/dl M-Ferritin Reviewed date:07/08/2024 07:07:32 AM Interpretation: Performing Lab: Notes/Report: KONSTANTIN 90.4 6.24-137 ng/ml G-T-Zuugvjco Protein Reviewed date:07/08/2024 07:08:21 AM Interpretation: Performing Lab: Notes/Report: CRP 8.1 0-4 mg/L M-Thyroid Stimulating Hormon e Reviewed date:07/07/2024 05:35:33 PM Interpretation: Performing Lab: Notes/Report: TSH 1.17 0.465-4.68 uIU/mL U-Slwt-Czskttz Antibody Tite r Reviewed date:07/08/2024 11:18:53 AM Interpretation: Performing Lab: Notes/Report: M-Hepatitis C Antibody Reviewed date:07/07/2024 05:35:22 PM Interpretation: Performing Lab: Notes/Report: M-RA Latex Turbid. Reviewed date:07/11/2024 02:57:56 PM Interpretation: Performing Lab: Notes/Report: M-RA Latex Turbid. Reviewed date:07/17/2024 10:11:54 AM Interpretation: Performing Lab: Notes/Report: RA <10.0 <14.0 IU/mL Performed at: [address] [id number] [employer]: Felipe Cortes PhD, Phone: [phone] [id number]-[id number] Reviewed date:07/14/2024 09:27:49 AM Interpretation: Performing Lab: Notes/Report: TVITD 23.3 30-100 ng/mL Deficient <20 ng/mL Insufficient 20-30 ng/mL Sufficient 30-100 ng/mL Potential Toxicity >100 ng/mL H-VITB12 Reviewed date:07/11/2024 05:12:18 PM Interpretation: Performing Lab: Notes/Report: VITB12 396 239-931 pg/mL H-FOL Reviewed date:07/11/2024 05:12:14 PM Interpretation: Performing Lab: Notes/Report: FOL 4.17 Normal Adult: 2.76->20 ng/mL Folate Deficent: 1.04-2.79ng/mL COMPREHENSIVE METABOLIC PANE L (20045) Reviewed date:04/13/2024 02:47:10 PM Interpretation: Performing Lab:WILLIAM truedash Bjzo1303 [employer], TouchBase [id number] [place] Notes/Report: NON-FASTING; NON-FASTING; NON-FASTING GLUCOSE [...] Reviewed date:04/13/2024 02:47:10 PM Interpretation: Performing Lab:WILLIAM Bantam [employer] Stixe1355 [place] [employer], TouchBase TechnologiesBpuzWZ[address] [place] Notes/Report: NON-FASTING; NON-FASTING; NON-FASTING WHITE [...] MPV 9.3 7.5-12.5 fL ABSOLUTE NEUTROPHILS 3247 0842-9304 cells/uL ABSOLUTE LYMPHOCYTES 2508 850-3900 cells/uL ABSOLUTE MONOCYTES 482 200-950 cells/uL ABSOLUTE EOSINOPHILS 343 15-500 cells/uL ABSOLUTE BASOPHILS 20 0-200 cells/uL NEUTROPHILS 49.2 LYMPHOCYTES 38.0 MONOCYTES 7.3 EOSINOPHILS 5.2 BASOPHILS 0.3 LIPASE (606) Reviewed date:04/13/2024 02:47:10 PM Interpretation: Performing Lab:CB, [facility], [facility] [id number] [place] Notes/Report: NON-FASTING; NON-FASTING; NON-FASTING LIPASE 58 7-60 U/L Reason For Referral Reason Mamm at [facility] unable to contact per [facility] Diagnosis 1 Breast cancer screen ing by mammogram (Z12.31) Referral Organization [facility] Referring Provider First Name David Referring Provider Last Name Jose Referring Provider Speciality Internal M edicine Referred Organization [facility] Referred Address [address] [facility] [address] [facility], [place],[address],[place] Referred Provider Specialty Diagnostic R adiology General Notes Jaki Arthur 04/2024 10:44:36 AM > faxed and they will call herAusten Nickie 06/03/2024 03:55:02 PM >[facility] unable to contact patient- closing referral Referral Priority Routine Reason Colonoscopy please.. . [facility] his of colon cancer Dr. Lucero Diagnosis 1 Colon cancer screeni ng (Z12.11) Referral Organization [facility] PED ABD[facility] Referring Provider First Name David Referring Provider Last Name Jose Referring Provider Speciality Internal edicine Referred Organization [facility] Referred Address [address] [facility] [address] [place], [place],[address],[place] Referred Provider Specialty General Surg lex General Notes Jaki Arthur 04/2024 10:45:11 AM > faxed and they will call her, Dedra Boyce 05/12/2024 12:18:51 PM >sent again, Dedra Boyce 06/14/2024 01:11:20 PM >Schedule with Dr. Lucero 07-05-24 Referral Priority Routine Referral Appointment Date 07/05/2024 Reason Please refer to Derm atologist at [facility] for recurrent skin lesions, needs full body skin cancer check. Diagnosis 1 Skin lesions (L98.9) Referral Organization [facility] KARY GARDINER Referring Provider First Name Erica Referring Provider Last Name Eva Referring Provider [facility] ctice Referred Organization [facility] Referred Address [address] [facility] [address] [place], [place],[address],[place] Referred Provider Specialty Dermatology General Notes Dedra Boyce 2024 03:52:02 PM >Referral sent to Dr. Escalera, Dedra Boyce 07/23/2024 10:14:06 AM > resent Referral Priority Routine Reason Needs colonoscopy at [facility], first available-screening colonoscopy Diagnosis 1 Unspecified abdomina l pain (R10.9) Referral Organization [facility] Referring Provider First Name David Referring Provider Last Name Jose Referring Provider Speciality Internal edicine Referral Priority Routine Reason Home Sleep study Diagnosis 1 Chronic insomnia (F5 1.04) Referral Organization [facility] KARY ELY Referring Provider First Name Erica Referring Provider Last Name Caitlin Referring Provider [facility] ctice Referred Organization [facility] Referred Address [address] [place], [place],[address],[place] Referred Provider Specialty Sleep Study General Notes Dedra Boyce 2024 04:34:51 PM >sending to [facility] Referral Priority Routine Reason Please refer to [facility] for PT with neck and thoracic back pain. Diagnosis 1 Neck pain (M54.2) Referral Organization [facility] Referring Provider First Name Erica Referring Provider Last Name Eva Referring Provider Speciality [facility] ctice Referred Organization [facility] Referred Address [address] [place] [facility] [address] [facility] [place],[address], Referred Provider Specialty Physical The rapist General Notes Dedra Boyce 2024 09:06:15 AM >sent Referral Priority Routine Reason OT eval and treat Diagnosis 1 Acute pain of right shoulder (M25.511) Referral Organization [facility] PED SOLIS Referring Provider First Name Ester Referring Provider Last Name Nick Referring Provider Speciality [facility] ctice Referred Organization [facility] Referred Address [address] [place] [address] [facility], [place],[address], Referred Provider Specialty Occupational Therapy General Notes Dedra Boyce 2024 11:49:35 AM >sent to [facility] rehab Referral Priority Routine Medications Medication [...] review and pick correct strength-formulati on from [employer] options. If intended option is not shown, [...] orally 4 times a day PRN Active buPROPion HCl ER (XL) 300 mg TAKE ONE TABLET BY MOUTH EVERY MORNING; Duration: 30 Active Carvedilol 12.5 MG TAKE ONE TABLET BY MOUTH TWICE DAILY; Duration: 30 days Active Ondansetron HCl 4 MG 1 tab(s) orally every 8 hours Active Sertraline HCl 100 mg TAKE ONE TABLET BY MOUTH EVERY DAY; Duration: 30 Active hydrOXYzine Pamoate 50 mg TAKE TWO CAPSULES BY MOUTH EVERY DAY AT BEDTIME OR DIRECTED; Duration: 30 Active Celecoxib 200 mg 1 capsule orally twice a day; Duration: 30 days Active Valsartan-hydroCHLOROth iazide 320-25 MG 1 tab(s) orally once a day; Duration: 90 days 03/02/2023 Active Immunizations Vaccine Route Administration Date Status [...] Problem Status W/U Status Risk Notes Problem Information temporarily unavailable Anxiety (F41.9) Active confirmed Problem Information temporarily unavailable Sore throat (J02.9) Active confirmed Problem Information temporarily unavailable Morbid obesity (E66.01) Active confirmed Problem Information temporarily unavailable Essential hypertension (I10) Active confirmed Problem Information temporarily unavailable GERD without esophagitis (K21.9) Active confirmed Problem Information temporarily unavailable BMI 40.0-44.9, adult (Z68.41) Active confirmed Problem Information temporarily unavailable Other chronic pain (G89.29) Active confirmed Problem Information temporarily unavailable Neck pain (M54.2) Active confirmed Problem Information temporarily unavailable Tension headache (G44.209) Active confirmed Problem Information temporarily unavailable Chronic insomnia (F51.04) Active confirmed Problem Information temporarily unavailable Fatty liver (K76.0) Active confirmed Problem Information temporarily unavailable Mood disorder (F39) Active confirmed Problem Information temporarily unavailable Paresthesia of both feet (R20.2) Active confirmed Problem Information temporarily unavailable MADHAV (generalized anxiety disorder) (F41.1) Active confirmed Problem Information temporarily unavailable Neutrophilic leukocytosis (D72.9) Active confirmed Problem Information temporarily unavailable Acute left-sided low back pain with left-sided sciatica (M54.42) Active confirmed Problem Information temporarily unavailable Leukocytosis, unspecified (D72.829) Active confirmed Problem Information temporarily unavailable Memory changes (R41.3) Active confirmed Problem Information temporarily unavailable Controlled type 2 diabetes mellitus without complication, without long-term current use of insulin (E11.9) Active confirmed Problem Information temporarily unavailable Seasonal allergic rhinitis, unspecified trigger (J30.2) Active confirmed Problem Information temporarily unavailable New onset type 2 diabetes mellitus (E11.9) Active confirmed Problem Information temporarily unavailable Lumbar disc disease (M51.9) Active confirmed Problem Information temporarily unavailable Cough (R05.9) Active confirmed Vital Signs Heart Rate 84 /min 01/26/2025 Temperature 97.5 degrees Fahrenheit 01/26/2025 Blood pressure diastolic 88 mm Hg 01/26/2025 Height 5 ft 7 in in 01/26/2025 Blood pressure systolic 124 mm Hg 01/26/2025 Weight 246.6 lbs 01/26/2025 BMI 38.62 kg/m2 01/26/2025 Encounters Encounter Location Date Provider Diagnosis [facility] [address] [place] [address] 08/06/2024 Provider Migration [facility] [address] [place] [address] 03/03/2024 Ester McAdelaes Acute cystitis with hematuria N30.01 ; Acute left-sided low back pain with left-sided sciatica M54.42 ; Essential hypertension I10 and Mood disorder F39 [facility] [address] [place] [address] 04/06/2024 David Garcia Acute abdominal pain R10.9 [facility] [address] [place] [address] 04/13/2024 Davidphilippe Garcia Acute abdominal pain R10.9 ; Breast cancer screening by mammogram Z12.31 ; Colon cancer screening Z12.11 ; Immunization(s) administered Z23 and Routine medical exam Z00.00 [facility] [address] [place] [address] 05/05/2024 Ercia Velasquez Acute suppurative otitis media of right ear without spontaneous rupture of tympanic membrane, recurrence not specified H66.001 and Acute URI J06.9 [facility] [address] [place] [address] 05/18/2024 Erica Velasquez Skin lesions L98.9 ; Sore throat J02.9 and Right acute serous otitis media, recurrence not specified H65.01 [facility] [address] [place] [address] 06/22/2024 David Garcia Seasonal allergic rhinitis, unspecified trigger J30.2 ; MADHAV (generalized anxiety disorder) F41.1 ; Unspecified abdominal pain R10.9 and Other chronic pain G89.29 [facility] [address] [address] 07/06/2024 Erica Caitlin Pain in right hand M79.641 ; Pain in left hand M79.642 ; Right hip pain M25.551 ; Memory changes R41.3 ; Controlled type 2 diabetes mellitus without complication, without long-term current use of insulin E11.9 and Chronic insomnia F51.04 [facility] [address] [place] [address] 08/11/2024 Erica Donnellyell Neck pain M54.2 ; Essential (primary) hypertension I10 and MADHAV (generalized anxiety disorder) F41.1 [facility] [address] [place] [address] 09/13/2024 Erica Caitlin Mood disorder F39 ; Lumbar disc disease M51.9 ; Other chronic pain G89.29 and Tension headache G44.209 [facility] [address] [place] [address] 10/24/2024 Erica Caitlin Mood disorder F39 ; Lumbar disc disease M51.9 and Other chronic pain G89.29 [facility] [address] [place] [address] 12/05/2024 Erica Caitlin Mood disorder F39 ; Controlled type 2 diabetes mellitus without complication, without long-term current use of insulin E11.9 ; Lumbar disc disease M51.9 ; Other chronic pain G89.29 and Essential hypertension I10 [facility] [address] [place] [address] 01/19/2025 Erica Caitlin Mood disorder F39 ; Controlled type 2 diabetes mellitus without complication, without long-term current use of insulin E11.9 ; Lumbar disc disease M51.9 ; Other chronic pain G89.29 ; Essential hypertension I10 and Back strain, initial encounter S39.012A [facility] [address] [place] [address] 01/26/2025 Ester Romero Acute pain of right shoulder M25.511 [facility] [place] [address] [address] 04/14/2024 David Besson Breast cancer screening by mammogram Z12.31 [facility] [address] [place] [address] 05/05/2024 Davdi Besson [facility] [address] [place] [address] 07/12/2024 Erica Caitlin [facility] [address] [place] [address] 08/11/2024 Erica Velasquez MADHAV (generalized anxiety disorder) F41.1 [facility] [address] [place] [address] 08/12/2024 David Besson Neck pain M54.2 and Back pain M54.9 [facility] [address] [place] [address] 09/13/2024 Erica Tucker Neck pain M54.2 and Back pain M54.9 [facility] [address] [facility] [address] [place] [address] 10/24/2024 David Besson [facility] [place] [address] [address] 11/10/2024 Erica Tucker Essential (primary) hypertension I10 and MADHAV (generalized anxiety disorder) F41.1 [facility] [place] [address] [address] 12/14/2024 Erica Tucker Controlled type 2 diabetes mellitus without complication, without long-term current use of insulin E11.9 [facility] [address] [address] 01/06/2025 David Besson [facility] [address] [place] [address] 01/26/2025 Ester McNeshakira Acute pain of right shoulder M25.511 [facility] [address] [facility] [address] [place] [address] 01/27/2025 Ester Nick Assessments Encounter Date Diagnosis (ICD Code) Assessment Notes Treatment Notes Treatment Clinical Notes Section Notes 03/03/2024 Acute cystitis with hematuria (ICD-10 - N30.01) [facility] records reviewed. Urine cx prelim- gram - [...] above. Return precautions discussed. All questions answered. 06/22/2024 MADHAV (generalized anxiety disorder) (ICD-10 - [...] pain of right shoulder (ICD-10 - M25.511) 05/18/2024 Sore throat (ICD-10 - J02.9) 05/18/2024 Skin lesions (ICD-10 - L98.9) At patient request with multiple tiny dry scabbed lesions, have placed Dermatology referral. 05/18/2024 Right acute serous otitis media, recurrence not specified (ICD-10 - H65.01) No active infection. Flonase bid x 7 days then once daily, continue antihistamine. Follow-up if develops fever, pain, hearing loss, worsening symptoms, or no improvement in a week. Warm compress to right neck. 01/19/2025 Lumbar disc disease (ICD-10 - M51.9) May take Celebrex twice a day as needed and continue cyclobenzaprine. Possible side effects and return precautions were reviewed as well 12/05/2024 Lumbar disc disease (ICD-10 - M51.9) May take Celebrex twice a day as needed and continue cyclobenzaprine. Possible side effects and return precautions were reviewed as well 10/24/2024 Other chronic pain (ICD-10 - G89.29) 04/13/2024 Colon cancer screening (ICD-10 - Z12.11) 11/10/2024 MADHAV (generalized anxiety disorder) (ICD-10 - [...] I will see her in 3 months 03/03/2024 Essential hypertension (ICD-10 - I10) Restart coreg, b/p check in 2 weeks 03/03/2024 Mood disorder (ICD-10 - F39) Stable on current regimen. No changes made today 06/22/2024 Other chronic pain (ICD-10 - G89.29) 04/13/2024 Immunization(s) administered (ICD-10 - Z23) 07/06/2024 Memory changes (ICD-10 - R41.3) discussed that this is often related to poor sleep, poorly controlled depression and/or anxiety symptoms. Rec labs, home sleep study. Consider brain imaging and/or referral pending those results/symptoms 09/13/2024 Tension headache (ICD-10 - G44.209) 12/05/2024 Other chronic pain (ICD-10 - G89.29) 01/19/2025 Other chronic pain (ICD-10 - G89.29) 01/19/2025 Essential hypertension (ICD-10 - I10) improved 12/05/2024 Essential hypertension (ICD-10 - I10) plans [...] well, non-smoker. Continue medicines for abdominal pain 07/06/2024 Chronic insomnia (ICD-10 - F51.04) 01/19/2025 [...] Dietary Consult 06/23/2022 M-Comprehensive Metabolic Panel 10/17/19 M-Hemoglobin A1C 10/16/2022 M-Hemoglobin A1C 03/02/2023 M-Thyroid Stimulating Hormone 03/02/2023 M-Vitamin B12 07/06/2024 M-Vitamin B12 03/02/2023 M-Vitamin D 25 Hydroxy 07/06/2024 M-Folate 07/06/2024 M-Folate 03/02/2023 W-Meac-Ivpfeo Citrullinated Pept 025 M-Microalb/Creat Ratio, Randm Ur 023 Comprehensive Metabolic Panel (CMP) 06/2021 Physical Therapy Eval and Treat 08/13/19 Physical Therapy Eval and Treat 09/14/19 Next Appt Details Provider Name:Erica Ramos ce, 03/02/2025 08:45:00 AM, [address], [place], [address], Insurance Providers Payer Name Payer Address Payer Phone Subscriber Number Group Number Insured Name Patient Relationship to Insured Coverage Start Date Coverage End Date [facility] [facility] [address] [address] [place] [address] [id number] Jasmin Zamorano Self - patient is the [...] pr esent Surgical History Surgery Date(Month/Year) cholecystectomy 2003 tonsillectomy hysterectomy 2002 appendectomy 2002 liprotripsy x 6 cyst 06/24/23 Lithotripsy x1 removal of 7mm Kidney Sto ne. Stent Placed 03/23/24 Kidney Stent Removed 03/29/24 cyst removal from [facility] 09/2024 Hospitalization History Reason Date(Month/Year) [facility]- Kidney Stone. 07/25-03/08 lipitripsy x 1
--- OUTSIDE RECORDS SUMMARY | 2025-02-24 10:48 | XMS_ITS | Encounter Summary ---
Author Organization [facility] Address [address] [place] [address] Care Team Providers Care Marketing Strategy Analyst Name Role Phone Mahesh Horton MD Primary Care Provider [phone] Kaya Braden SAND DRIER Unavailable [phone] Erica Tucker APRN Primary Care Provider [phone] Encounter Details Date Type Department Care Team (Latest Contact Info) Description 11/08/2021 Community [facility] Community [facility] [address] [place] [address] Zee Avery, [place] [address] [facility] [place] [address] Lumbar radiculopathy (Primary Dx) Social [...] unspecified documented in this encounter Care Teams Marketing Strategy Analyst Relationship Specialty Start Date End Date Mahesh Horton MD [address] [place] [address] PCP - General 09/14/20 08/31/22 Erica Tucker APRN [address] [facility] [address] [facility] [address] [place] [address] PCP - General 09/01/22 Kaya Braden APRN [address] [facility] [address] [place] [address] Nurse Practitioner Neurosurgery 09/01/22 documented as of this encounter
== END 2025-02-23 23:59 ==
LOC: LAB.DROPOF 02-24 10:41
PROVIDERS: PCP Student in an Organized Health Care Education/Training Program; Visit Provider Student in an Organized Health Care Education/Training Program
DX: R52 Pain, unspecified (principal)
CPT/HCPCS: 87631

== ENCOUNTER 2025-04-06 08:34 | Outpatient (CLI) | payer OTHER, SELFPAY ==
--- OUTSIDE RECORDS SUMMARY | 2024-09-19 07:30 | XMS_ITS ---
Author Organization [facility] Address [address] [place] [address] Care Team Providers Care Escapement Maker Name Role Phone David Garcia Primary Care Provider [phone] REASON FOR VISIT 3 month check up Encounters Encounter Location Date Provider Diagnosis [facility] [address] [place], [place] [address] 09/19/2024 David Garcia Plan Of Treatment No Information Progress Notes * Jasmin JORGEDOB:[birth year] (50 yo F)Acc No.[id number]:09/19/2024 Progress Notes Patient: Jasmin SUN Provider: Isabel Garcia MD :1975 A ge:49 Y S ex:Female Date:09/19/2024 Address[id number] Subjective: * Chief Complaints: * 1 . 3 month check up. * Medical History: Objective: * Vitals: Assessment: Plan: * Treatment: * * Electronic signature of Chidi Garcia MD FAAP on 04/06/2025 at 08:37 AM EST Sign off status: Pending * Provider: Isabel Garcia MD Date: 09/19/2024 Generated for Printi ng/Faxing/eTransmitting on: 1 06/07/2024 08:37 AM EST
--- OUTSIDE RECORDS SUMMARY | 2024-10-11 04:00 | XMS_ITS ---
Author Organization [facility] Address [address] [place] [address] Care Team Providers Care Engineering Drawings Checker Name Role Phone David Garcia Primary Care Provider Erica Tucker Unavailable [phone] REASON FOR VISIT 4 wk FU Encounters Encounter Location Date Provider Diagnosis [facility] [address] [place], [place] [address] 10/11/2024 Erica Tucker Plan Of Treatment No Information Progress Notes * Jasmin JORGEDOB:[birth year] (50 yo F)Acc No.[id number]:10/11/2024 Progress Notes Patient: Jasmin SUN Provider: LINDA Rojas :1975 A ge:49 Y S ex:Female Date:10/11/2024 Address:[id number] Pcp:David Garcia Subjective: * Chief Complaints: * 1 . 4 wk FU. * Medical History: Objective: * Vitals: Assessment: Plan: * Treatment: * * Electronic signature of Haleigh Tucker APRN on 04/06/2025 at 08:36 AM EST Sign off status: Pending * Provider: LINDA Rojas Date: 0 10/11/2024 Generated for Printi ng/Faxing/eTransmitting on: 1 06/07/2024 08:36 AM EST
--- OUTSIDE RECORDS SUMMARY | 2025-03-02 03:45 | XMS_ITS ---
Author Organization [facility] Address [address] [place], [place] [address] Care Team Providers Care Commercial Driver'S License Driver Name Role Phone David Garcia Primary Care Provider [phone] Erica Tucker Unavailable [phone] REASON FOR VISIT 6 Week F/U, A1C Encounters Encounter Location Date Provider Diagnosis [facility] [address] [place], [place] [address] 03/02/2025 Erica Tucker Plan Of Treatment No Information Progress Notes * Jasmin JORGEDOB:[birth year] (50 yo F)Acc No.[id number]:03/02/2025 Progress Notes Patient: Lisbeth WILLSONASJasmin Provider: LINDA Rojas :1975 A ge:50 Y S ex:Female Date:03/02/2025 Address:[id number] Pcp:David Garcia Subjective: * Chief Complaints: * 1 . 6 Week F/U, A1C. * Medical History: Objective: * Vitals: Assessment: Plan: * Treatment: * * Electronic signature of Haleigh Tucker APRN on 04/06/2025 at 08:37 AM EST Sign off status: Pending * Provider: LINDA Rojas Date: Generated for Printi ng/Faceleg/eTransmitting on: 06/07/2024 08:37 AM EST
--- OUTSIDE RECORDS SUMMARY | 2025-03-22 09:30 | XMS_ITS ---
Author Organization [facility] D ABDIFATA[facility] Address [address] [place] [address] Care Team Providers Care Financial Analysis Manager Name Role Phone David Garcia Primary Care Provider Caitlin Erica Unavailable [phone] Allergies Allergen (clinical drug ingredient) Drug/Non Drug [...] review and pick correct strength-formulati on from [employer] options. If intended option is not shown, [...] 03/22/2025 Encounters Encounter Location Date Provider Diagnosis [address] [address] 03/22/2025 Erica Tucker Strain of lumbar region, [...] Notes * Jasmin JORGEDOB:[birth year] (50 yo F)Acc No.[id number]:03/22/2025 Progress Notes Patient: Jasmin SUN Provider: LINDA Rojas :1975 A ge:50 Y S ex:Female Date:03/22/2025 Address:[address] [place] [address] [place], [id number] Pcp:David Garcia Subjective: * Chief Complaints: * 1 . Pulled Back Muscle - lower back pain. * HPI: g en: Low back pain since last night at work, picked up a bag of trash. [place] a pop in the lower back. Localized [...] *Please review and pick correct strength-formulation from [employer] options. If intended option is not shown, [...] Date: 05/22/2024 Generated for Elsie mcnair/Remy/Babatundeitting on: 06/07/2024 08:37 AM EST History and Physical Notes * [...]
--- NOTE | 2025-04-06 08:36 | XR_ITS ---
FINAL REPORT TECHNIQUE: Right shoulder, 2 views CLINICAL HISTORY: right shoulder pain COMPARISON: 01/26/2025 FINDINGS: RIGHT SHOULDER 2 views demonstrate no acute fracture or dislocation. The visualized joint spaces are normally aligned. Moderate hypertrophic changes are present involving the acromioclavicular joint. The soft tissues are unremarkable. IMPRESSION: Moderate acromioclavicular degenerative change, without acute abnormality identified. Reviewed, Interpreted and Dictated by Can Uribe MD Transcribed by Kimberly Pinedo Authenticated and [facility]
--- OUTSIDE RECORDS SUMMARY | 2025-04-06 08:37 | XMS_ITS | Patient Health Record ---
Author Organization [facility] Address [address] [place] [address] Care Team Providers Care Bacteriology Technician Name Role Phone Chidi Garciahen Primary Care Provider Ercia Tucker Unavailable [phone] Ester Romero Unavailable [phone] Erica Velasquez Unavailable [phone] Migration, Provider Unavailable Unavailable Allergies Allergen (clinical [...] e Results Component Value Reference Range Notes X ray : Shoulder, Right Reviewed date:01/30/2025 09:30:34 AM Interpretation: Performing Lab: Notes/Report: X ray : Shoulder, Right Reviewed date:01/30/2025 09:30:34 AM Interpretation: Performing Lab: Notes/Report: Rapid Strep Reviewed date:05/18/2024 03:58:58 PM Interpretation:Negative Performing Lab: Notes/Report: Negative COMPREHENSIVE METABOLIC PANE L (39758) Reviewed date:04/13/2024 02:47:10 PM Interpretation: Performing Lab:CB, [facility] [id number] [facility], Cecilio SalehXbzmEK[address] Getcahew [place] Notes/Report: NON-FASTING; NON-FASTING; NON-FASTING GLUCOSE 99 [...] ALT 11 6-29 U/L CBC (INCLUDES DIFF/PLT) (099 9) Reviewed date:04/13/2024 02:47:10 PM Interpretation: Performing Lab:CB, [facility] [id number] [facility], [facility]YjgcGE[address] [place] Notes/Report: NON-FASTING; NON-FASTING; NON-FASTING WHITE [...] MPV 9.3 7.5-12.5 fL ABSOLUTE NEUTROPHILS 3247 7684-9052 cells/uL ABSOLUTE LYMPHOCYTES 2508 850-3900 cells/uL ABSOLUTE MONOCYTES 482 200-950 cells/uL ABSOLUTE EOSINOPHILS 343 15-500 cells/uL ABSOLUTE BASOPHILS 20 0-200 cells/uL NEUTROPHILS 49.2 LYMPHOCYTES 38.0 MONOCYTES 7.3 EOSINOPHILS 5.2 BASOPHILS 0.3 LIPASE (606) Reviewed date:04/13/2024 02:47:10 PM Interpretation: Performing Lab:CB, [facility] [id number], [facility] HospitalYuuuAG[address] [place] Notes/Report: NON-FASTING; NON-FASTING; NON-FASTING LIPASE 58 7-60 U/L M-Comprehensive Metabolic Pa laureano Reviewed date:07/08/2024 07:07:43 [...] AGRATIO 1.7 1.1-1.8 ALP 109 38-126 U/L H-TVITD Reviewed date:07/14/2024 09:27:49 AM Interpretation: Performing Lab: Notes/Report: TVITD 23.3 30-100 ng/mL Deficient <20 ng/mL Insufficient 20-30 ng/mL Sufficient 30-100 ng/mL Potential Toxicity >100 ng/mL H-VITB12 Reviewed date:07/11/2024 05:12:18 PM Interpretation: Performing Lab: Notes/Report: VITB12 396 239-931 pg/mL H-FOL Reviewed date:07/11/2024 05:12:14 PM Interpretation: Performing Lab: Notes/Report: FOL 4.17 Normal Adult: 2.76->20 ng/mL Folate Deficent: 1.04-2.79ng/mL M-RA Latex Turbid. Reviewed date:07/17/2024 10:11:54 AM Interpretation: Performing Lab: Notes/Report: RA <10.0 <14.0 IU/mL Performed at: [address] [id number] Prototype Model Maker: Felipe Cortes PhD, Phone: [phone] M-Complete Blood Count Auto Diff Reviewed date:07/08/2024 [...] Performing Lab: Notes/Report: KONSTANTIN 90.4 6.24-137 ng/ml M-L-Hlhduwjs Protein Reviewed date:07/08/2024 07:08:21 AM Interpretation: Performing Lab: Notes/Report: CRP 8.1 0-4 mg/L M-Thyroid Stimulating Hormon e Reviewed date:07/07/2024 05:35:33 PM Interpretation: Performing Lab: Notes/Report: TSH 1.17 0.465-4.68 uIU/mL X-Vyoq-Wxfruea Antibody Tite r Reviewed date:07/08/2024 11:18:53 AM Interpretation: Performing Lab: Notes/Report: M-Hepatitis C Antibody Reviewed date:07/07/2024 05:35:22 PM Interpretation: Performing Lab: Notes/Report: M-RA Latex Turbid. Reviewed date:07/11/2024 02:57:56 PM Interpretation: Performing Lab: Notes/Report: X ray : Hip, Right Reviewed date:07/08/2024 11:18:07 AM Interpretation: Performing Lab: Notes/Report: X ray : Hand, Left Reviewed date:07/08/2024 11:16:51 AM Interpretation: Performing Lab: Notes/Report: X ray : Hand, Right Reviewed date:07/08/2024 11:17:44 AM Interpretation: Performing Lab: Notes/Report: Reason For Referral Reason Mamm at [facility] unable to contact per [facility] Diagnosis 1 Breast cancer screen ing by mammogram (Z12.31) Referral Organization [facility] Referring Provider First Name David Referring Provider Last Name Jose Referring Provider Speciality Internal M edicine Referred Organization [facility] Referred Address [address] [facility] [address] [facility], [place], [place],[address],[place] Referred Provider Specialty Diagnostic R adiology General Notes Jaki Arthur 04/2024 10:44:36 AM > faxed and they will call herAusten Nickie 06/03/2024 03:55:02 PM >[facility] unable to contact patient- closing referral Referral Priority Routine Reason Colonoscopy please.. . [facility] his of colon cancer Dr. Lucero Diagnosis 1 Colon cancer screeni ng (Z12.11) Referral Organization [facility] PED ABDIFATAH Referring Provider First Name David Referring Provider Last Name Jose Referring Provider Speciality Internal edicine Referred Organization [facility] Ref[facility] Address [address] [facility] [address] [place], [place],[address],[place] Referred Provider Specialty General Surg lex General Notes Jaki Arthur 04/2024 10:45:11 AM > faxed and they will call her, Dedra Boyce 05/12/2024 12:18:51 PM >sent again, Dedra Boyce 06/14/2024 01:11:20 PM >Schedule with Dr. Lucero 07-05-24 Referral Priority Routine Referral Appointment Date 07/05/2024 Reason Please refer to Derm atologist at [facility] for recurrent skin lesions, needs full body skin cancer check. Diagnosis 1 Skin lesions (L98.9) Referral Organization [facility] PED ABDIFATAH Referring Provider First Name Erica Referring Provider Last Name Eva [facility]erred Organization [facility] Referred Address [address] [facility] [address] [address] [place], [place],[address],[place] Referred Provider Specialty Dermatology General Notes Dedra Boyce 2024 03:52:02 PM >Referral sent to Dr. Escalera, Dedra Boyce 07/23/2024 10:14:06 AM > resent Referral Priority Routine Reason Needs colonoscopy at [facility], first available-screening colonoscopy Diagnosis 1 Unspecified abdomina l pain (R10.9) Referral Organization [facility] PED ABDIAFTAH Referring Provider First Name David Referring Provider Last Name Jose Referring Provider Speciality Internal edicine Referral Priority Routine Reason Home Sleep study Diagnosis 1 Chronic insomnia (F5 1.04) Referral Organization [facility] KARY ELY Referring Provider First Name Erica Referring Provider Last Name Caitlin Referring Provider [facility] ctice Referred Organization [facility] Referred Address [address] [facility] [address] [address] [address] [place], [place],[address],[place] Referred Provider Specialty Sleep Study General Notes Dedra Boyce 2024 04:34:51 PM >sending to [facility] Referral Priority Routine Reason Please refer to [facility] for PT with neck and thoracic back pain. Diagnosis 1 Neck pain (M54.2) Referral Organization [facility] PED A[facility] Referring Provider First Name Erica Referring Provider Last Name Eva Ref[facility] Referred Organization [facility] Referred Address [address] [place] [facility] [place],[address], Referred Provider Specialty Physical The rapist General Notes Dedra Boyce 2024 09:06:15 AM >sent Referral Priority Routine Reason OT eval and treat Diagnosis 1 Acute pain of right shoulder (M25.511) Referral Organization [facility] PED SOLIS Referring Provider First Name Ester Referring Provider Last Name Nick Referring Provider [facility] ctice Referred Organization [facility] Referred Address [address] [place], [place],[address], Referred Provider Specialty Occupational Therapy General Notes Dedra Boyce 2024 11:49:35 AM >sent to [facility] rehab Referral Priority Routine Medications Medication SIG (Take, Route, Frequency, Duration) Notes Start Date End Date Status Celecoxib 200 mg 1 capsule orally twice a day; Duration: 30 days Active Carvedilol 12.5 MG TAKE ONE TABLET BY MOUTH TWICE DAILY; Duration: 30 days Active Farxiga 5 MG 1 tablet Orally Once a day; Duration: 30 days Active Dicyclomine HCl 20 MG 1 tab(s) orally 4 times a day PRN Active hydrOXYzine Pamoate 50 mg TAKE TWO CAPSULES BY MOUTH EVERY DAY AT BEDTIME OR DIRECTED; Duration: 30 Active Pantoprazole Sodium 40 MG 1 tab(s) orally once a day Active buPROPion HCl ER (XL) 300 mg TAKE ONE TABLET BY MOUTH EVERY MORNING; Duration: 30 Active Ondansetron HCl 4 MG 1 tab(s) orally every 8 hours Active Sertraline HCl 100 mg TAKE ONE TABLET BY MOUTH EVERY DAY; Duration: 30 Active Sucralfate 1 GM 1 tab(s) orally 4 times a day (before meals and at bedtime); Duration: 10 days Active Cyclobenzaprine HCl 10 mg TAKE ONE TABLET BY MOUTH THREE TIMES DAILY NEEDED MAY CAUSE DROWSINESS; Duration: 30 Active Lidocaine 5 % 1 patch remove after 12 hours Externally Once a day; Duration: 30 days 03/22/2025 Active Loratadine 10 MG 1 tab(s) orally once a day; Duration: 30 days 05/18/2024 Active Methocarbamol 750 MG 1-2 tabs Orally every 12 hours as needed for back spasm; Duration: 7 days 03/22/2025 Active Fluticasone Propionate 50 MCG/ACT 1 spray(s) in each nostril twice daily; Duration: 30 days 06/22/2024 Active Cholecalciferol 50 MCG 1 TAB(S) ORALLY ONCE A DAY; Duration: 30 DAYS *Please review and pick correct strength-formulati on from [employer]wdio options. If intended option is not shown, discontinue and re-order from Quick Search* 07/12/2024 Active Valsartan-hydroCHLOROth iazide 320-25 MG 1 tab(s) [...] Status W/U Status Risk Notes Problem Anxiety (48975176) Anxiety (F41.9) Active confi rmed Problem Sore throat (289407301) Sore throat (J02.9) Active confirmed Problem Morbid obesity (604195417) Morbid obesity (E66.01) Active confirmed Problem Essential hypertension (77428232) Essential hypertension (I10) Active confirmed Problem Gastroesophageal reflux disease (099362119) GERD without esophagitis (K21.9) Active confirmed Problem Body mass index 40+ - morbidly obese (705032537) BMI 40.0-44.9, adult (Z68.41) Active confirmed Problem Chronic pain (38168957) Other chronic pain (G89.29) Active confirmed Problem Neck pain (97452358) Neck pain (M54.2) Active confirmed Problem Tension headache (893734531) Tension headache (G44.209) Active confirmed Problem Chronic insomnia (352966667) Chronic insomnia (F51.04) Active confirmed Problem Fatty liver (588060567) Fatty liver (K76.0) Active confirmed Problem Mood disorder (28877786) Mood disorder (F39) Active confirmed Problem Skin sensation disturbance (42015158) Paresthesia of both feet (R20.2) Active confirmed Problem Generalized anxiety disorder (46030228) MADHAV (generalized anxiety disorder) (F41.1) Active confirmed Problem Neutrophilic leukocytosis (411045672) Neutrophilic leukocytosis (D72.9) Active confirmed Problem Sciatica (18585405) Acute left-sided low back pain with left-sided sciatica (M54.42) Active confirmed Problem Leukocytosis (025779350) Leukocytosis, unspecified (D72.829) Active confirmed Problem Amnesia (74295788) Memory change s (R41.3) Active confirmed Problem Type II diabetes mellitus without complication (566230284) Controlled type 2 diabetes mellitus without complication, without long-term current use of insulin (E11.9) Active confirmed Problem Seasonal allergic rhinitis (604865857) Seasonal allergic rhinitis, unspecified trigger (J30.2) Active confirmed Problem Type II diabetes mellitus without complication (759395235) New onset type 2 diabetes mellitus (E11.9) Active confirmed Problem Disorder of lumbar disc (083736811) Lumbar disc disease (M51.9) Active confirmed Problem Cough (99086209) Cough (R05.9) Active confirmed Vital Signs Heart Rate 72 /min 03/22/2025 Temperature 98 degrees Fahrenheit 03/22/2025 Blood pressure diastolic 80 mm Hg 03/22/2025 Height 5 ft 7 in in 03/22/2025 Blood pressure systolic 128 mm Hg 03/22/2025 Weight 250 lbs 03/22/2025 BMI 39.15 kg/m2 03/22/2025 Encounters Encounter Location Date Provider Diagnosis [facility] [address] [facility] [address] [place], [place] [address] 08/06/2024 Provider Migration [facility] [address] [facility] [address] [place], [place] [address] 04/06/2024 David Garcia Acute abdominal pain R10.9 [facility] [address] [facility] [address] [place] [address] 04/13/2024 David Garcia Acute abdominal pain R10.9 ; Breast cancer screening by mammogram Z12.31 ; Colon cancer screening Z12.11 ; Immunization(s) administered Z23 and Routine medical exam Z00.00 [facility] [address] [place] [address] 05/05/2024 Erica Velasquez Acute suppurative otitis media of right ear without spontaneous rupture of tympanic membrane, recurrence not specified H66.001 and Acute URI J06.9 [facility] [address] [place] [address] 05/18/2024 Erica Velasquez Skin lesions L98.9 ; Sore throat J02.9 and Right acute serous otitis media, recurrence not specified H65.01 [facility] [address] [place] [address] 06/22/2024 David Jose Seasonal allergic rhinitis, unspecified trigger J30.2 ; MADHAV (generalized anxiety disorder) F41.1 ; Unspecified abdominal pain R10.9 and Other chronic pain G89.29 [facility] [address] [address] 07/06/2024 Erica Caitlin Pain in right hand M79.641 ; Pain in left hand M79.642 ; Right hip pain M25.551 ; Memory changes R41.3 ; Controlled type 2 diabetes mellitus without complication, without long-term current use of insulin E11.9 and Chronic insomnia F51.04 [facility] [address] [place] [address] 08/11/2024 Erica Velasquez Neck pain M54.2 ; Essential (primary) hypertension I10 and MADHAV (generalized anxiety disorder) F41.1 [facility] [address] [place] [address] 09/13/2024 Erica Caitlin Mood disorder F39 ; Lumbar disc disease M51.9 ; Other chronic pain G89.29 and Tension headache G44.209 [facility] [address] [place] [address] 10/24/2024 Erica Caitlin Mood disorder F39 ; Lumbar disc disease M51.9 and Other chronic pain G89.29 [facility] [address] [place] [address] 12/05/2024 Erica Tucker Mood disorder F39 ; Controlled type 2 diabetes mellitus without complication, without long-term current use of insulin E11.9 ; Lumbar disc disease M51.9 ; Other chronic pain G89.29 and Essential hypertension I10 [facility] [address] [place] [address] 01/19/2025 Erica Tucker Mood disorder F39 ; Controlled type 2 diabetes mellitus without complication, without long-term current use of insulin E11.9 ; Lumbar disc disease M51.9 ; Other chronic pain G89.29 ; Essential hypertension I10 and Back strain, initial encounter S39.012A [facility] [address] [facility] [address] [place] [address] 01/26/2025 Ester McNees Acute pain of right shoulder M25.511 [facility] [place] [address] [address] 03/22/2025 Erica Tucker Strain of lumbar region, initial encounter S39.012A [facility] [address] [place] [address], [place] [address] 04/14/2024 David Besson Breast cancer screening by mammogram Z12.31 [facility] [address] [facility] [address] [place] [address] 05/05/2024 David Besson [facility] [address] [facility] [address] [place] [address] 07/12/2024 Erica Tucker [facility] [address] [place] [address] 08/11/2024 Erica Eva MADHAV (generalized anxiety disorder) F41.1 [facility] [address] [place] [address] 08/12/2024 David Besson Neck pain M54.2 and Back pain M54.9 [facility] [address] [place] [address] 09/13/2024 Erica Tucker Neck pain M54.2 and Back pain M54.9 [facility] [address] [place] [address] 10/24/2024 David Garcia [facility] [place] [address] [address] 11/10/2024 Erica Tucker Essential (primary) hypertension I10 and MADHAV (generalized anxiety disorder) F41.1 [facility] [address] [address] 12/14/2024 Erica Tucker Controlled type 2 diabetes mellitus without complication, without long-term current use of insulin E11.9 [facility] [address] [address] 01/06/2025 David Garcia [facility] [address] [facility] [address] [place] [address] 01/26/2025 Ester Romero Acute pain of right shoulder M25.511 [facility] [address] [facility] [address] [place] [address] 01/27/2025 Esetr Romero Assessments Encounter Date Diagnosis (ICD Code) Assessment Notes Treatment Notes Treatment Clinical Notes Section Notes 04/06/2024 Acute abdominal pain (ICD-10 - R10.9) [...] pain of right shoulder (ICD-10 - M25.511) 03/22/2025 Strain of lumbar region, initial encounter [...] May return to work in 48 hours. 01/19/2025 Lumbar disc disease (ICD-10 - M51.9) [...] week. Warm compress to right neck. 04/13/2024 Immunization(s) administered (ICD-10 - Z23) 06/22/2024 [...] 25 Hydroxy 07/06/2024 M-Folate 07/06/2024 M-Folate 03/02/2023 I-Eqbu-Ixpuhy Citrullinated Pept 025 M-Microalb/Creat Ratio, Randm Ur 023 Comprehensive Metabolic Panel (CMP) 06/2021 Physical Therapy Eval and Treat 08/13/19 25 Physical Therapy Eval and Treat 09/14/19 25 Insurance Providers Payer Name Payer Address Payer Phone Subscriber Number Group Number Insured Name Patient Relationship to Insured Coverage Start Date Coverage End Date [employer] [facility] [address] [address] [place] [address] [id number] Jasmin Zamorano Self - patient is the [...] Kidney Stent Removed 03/29/24 cyst removal from [facility] 09/2024 Hospitalization History Reason Date(Month/Year) [facility]- Kidney Stone. 07/25-03/08 lipitripsy x 1
--- OUTSIDE RECORDS SUMMARY | 2025-04-06 08:37 | XMS_ITS | Clinical Summary ---
Author Organization [facility] Address [address] [place] [address] Care Team Providers Care Brim Shaper Name Role Phone Kaya Braden FOOD EXPEDITOR Unavailable [phone] Erica Tucker FOOD EXPEDITOR Primary Care Provider [phone] Allergies Active Allergy Reactions Criticality Noted Date [...] COMFORT PAC) 4 MG misc 2 Active [place] 0.65 % nasal spray INSTILL 2 SPRAYS [...] 2022 Sigmoidoscopy 2022 [facility]-Colorectal Cancer Screening 2022 [id number] Vaccine ( season) 2025 04/09/2021, 10/02/2020, 09/04/2020 [...] age to complete this topic Insurance AETNA [facility] MEDICAID Care Teams Brim Shaper Relationship Specialty Start Date End Date Erica Tucker APRN [address] [facility] [address] [facility] [address] [place] [address] PCP - General 09/01/22 Kaya Braden APRN [address] [facility] [address] [place] [address] Nurse Practitioner Neurosurgery 09/01/22
--- OUTSIDE RECORDS SUMMARY | 2025-04-06 08:38 | XMS_ITS | Encounter Summary ---
Author Organization [facility] Address [address] [place] [address] Care Team Providers Care Nurse Quality Name Role Phone Mahesh Horton MD Primary Care Provider [phone] Kaya Braden SKEIN DRIER Unavailable [phone] Erica Tucker APRN Primary Care Provider [phone] Encounter Details Date Type Department Care Team (Latest Contact Info) Description 11/08/2021 [facility] [address] [place] [address] Zee Avery, PA [address] [facility] [place] [address] Lumbar radiculopathy (Primary Dx) Social [...] unspecified documented in this encounter Care Teams Nurse Quality Relationship Specialty Start Date End Date Mahesh Horton MD [address] [place] [address] PCP - General 09/14/20 08/31/22 Erica Tucker APRN [address] [facility] [address] [facility] [address] [place] [address] PCP - General 09/01/22 Kaya Braedn APRN [address] [facility] [address] [place] [address] Nurse Practitioner Neurosurgery 09/01/22 documented as of this encounter
== END 2025-04-06 23:59 | disposition home or self-care (01) ==
LOC: RAD 08:35
PROVIDERS: PCP Nurse Practitioner Family; Visit Provider Orthopaedic Surgery
DX: M19.011 Primary osteoarthritis, right shoulder (principal)
CPT/HCPCS: 73030

== ENCOUNTER 2025-04-21 06:46 | Outpatient (CLI) | payer OTHER, SELFPAY ==
--- OUTSIDE RECORDS SUMMARY | 2024-09-19 07:30 | XMS_ITS ---
Author Organization [facility] Address [address] [place] [address] Care Team Providers Care Parole Officer Name Role Phone David Garcia Primary Care Provider REASON FOR VISIT 3 month check up Encounters Encounter Location Date Provider Diagnosis [facility] [address] [place], [place] [address] 09/19/2024 David Garcia Plan Of Treatment No Information Progress Notes * Jasmin JORGEDOB:[birth year] (50 yo F)Acc No.[id number]:09/19/2024 Progress Notes Patient: Jasmin SUN Provider: Isabel Garcia MD :1975 A ge:49 Y S ex:Female Date:09/19/2024 Address[id number] Subjective: * Chief Complaints: * 1 . 3 month check up. * Medical History: Objective: * Vitals: Assessment: Plan: * Treatment: * * Electronic signature of Chidi Garcia MD FAAP on 04/21/2025 at 06:50 AM EST Sign off status: Pending * Provider: Isabel Garcia MD Date: 09/19/2024 Generated for Printi ng/Faxing/eTransmitting on: 06/22/2024 06:50 AM EST
--- OUTSIDE RECORDS SUMMARY | 2024-10-11 04:00 | XMS_ITS ---
Author Organization [facility] Address [address] [place] [address] Care Team Providers Care Heel Caser Name Role Phone David Garcia Primary Care Provider [phone] Erica Tucker Unavailable [phone] REASON FOR VISIT 4 wk FU Encounters Encounter Location Date Provider Diagnosis [facility] [address] [place], [place] [address] 10/11/2024 Erica Tucker Plan Of Treatment No Information Progress Notes * Jasmin JORGEDOB:[birth year] (50 yo F)Acc No.[id number]:10/11/2024 Progress Notes Patient: Jasmin SUN Provider: LINDA Rojas :1975 A ge:49 Y S ex:Female Date:10/11/2024 Address[id number] Pcp:David Garcia Subjective: * Chief Complaints: * 1 . 4 wk FU. * Medical History: Objective: * Vitals: Assessment: Plan: * Treatment: * * Electronic signature of Haleigh Tucker APRN on 04/21/2025 at 06:49 AM EST Sign off status: Pending * Provider: LINDA Rojas Date: 0 10/11/2024 Generated for Printi ng/Faxing/eTransmitting on: 1 06/22/2024 06:49 AM EST
--- OUTSIDE RECORDS SUMMARY | 2025-03-02 03:45 | XMS_ITS ---
Author Organization [facility] Address [address] [place], [place] [address] Care Team Providers Care Jowl Trimmer Name Role Phone David Garcia Primary Care Provider [phone] Erica Tucker Unavailable [phone] REASON FOR VISIT 6 Week F/U, A1C Encounters Encounter Location Date Provider Diagnosis [facility] [address] [place], [place] [address] 03/02/2025 Erica Tucker Plan Of Treatment No Information Progress Notes * Jasmin JORGEDOB:[birth year] (50 yo F)Acc No.[id number]:03/02/2025 Progress Notes Patient: Lisbeth WILLSONASJasmin Provider: LINDA Rojas :1975 A ge:50 Y S ex:Female Date:03/02/2025 Address:[place] Pcp:David Garcia Subjective: * Chief Complaints: * 1 . 6 Week F/U, A1C. * Medical History: Objective: * Vitals: Assessment: Plan: * Treatment: * * Electronic signature of Haleigh Tucker APRN on 04/21/2025 at 06:49 AM EST Sign off status: Pending * Provider: LINDA Rojas Date: Generated for Printi ng/Faceleg/eTransmitting on: 06/22/2024 06:49 AM EST
--- OUTSIDE RECORDS SUMMARY | 2025-03-22 09:30 | XMS_ITS ---
Author Organization [facility] PE D [facility]BDIF[facility] Address [address] [place] [address] Care Team Providers Care Servicer Name Role Phone David Garcia Primary Care Provider Caitlin Erica Unavailable [phone] Allergies Allergen (clinical drug ingredient) Drug/Non Drug Allergy documented on EMR Reaction Allergy Type Onset Date Status metoclopramide Reglan shakes Drug Allergy Ac tive nifedipine NIFEdipine swelling Drug Allergy Activ e amoxicillin Amoxicillin hives Drug Allergy Act tamara ibuprofen Ibuprofen stomach upset Drug Allergy Act tamara Penicillin hives Drug Allergy Active amlodipine amLODIPine swelling Drug Allergy Activ e REASON FOR VISIT Pulled Back Muscle - lower back pain Medications Medication SIG (Take, Route, Frequency, Duration) Notes Start Date End Date Status Valsartan-hydroCHLOROth iazide 320-25 MG 1 tab(s) orally once a day; Duration: 90 days 03/02/2023 Active Celecoxib 200 mg 1 capsule orally twice a day; Duration: 30 days Active Carvedilol 12.5 MG TAKE ONE TABLET BY MOUTH TWICE DAILY; Duration: 30 days Active Farxiga 5 MG 1 tablet Orally Once a day; Duration: 30 days Active hydrOXYzine Pamoate 50 mg TAKE TWO CAPSULES BY MOUTH EVERY DAY AT BEDTIME OR DIRECTED; Duration: 30 Active Loratadine 10 MG 1 tab(s) orally once a day; Duration: 30 days 05/18/2024 Active Fluticasone Propionate 50 MCG/ACT 1 spray(s) in each nostril twice daily; Duration: 30 days 06/22/2024 Active Cholecalciferol 50 MCG 1 TAB(S) ORALLY ONCE A DAY; Duration: 30 DAYS *Please review and pick correct strength-formulati on from [employer] options. If intended option is not shown, discontinue and re-order from Quick Search* 07/12/2024 Active Ondansetron HCl 4 MG 1 tab(s) orally every 8 hours Active Sucralfate 1 GM 1 tab(s) orally 4 times a day (before meals and at bedtime); Duration: 10 days Active Cyclobenzaprine HCl 10 mg TAKE ONE TABLET BY MOUTH THREE TIMES DAILY NEEDED MAY CAUSE DROWSINESS; Duration: 30 Active Lidocaine 5 % 1 patch remove after 12 hours Externally Once a day; Duration: 30 days 03/22/2025 Active Methocarbamol 750 MG 1-2 tabs Orally every 12 hours as needed for back spasm; Duration: 7 days 03/22/2025 Active Dicyclomine HCl 20 MG 1 tab(s) orally 4 times a day PRN Active Pantoprazole Sodium 40 MG 1 tab(s) orally once a day Active buPROPion HCl ER (XL) 300 mg TAKE ONE TABLET BY MOUTH EVERY MORNING; Duration: 30 Active Sertraline HCl 100 mg TAKE ONE TABLET BY MOUTH EVERY DAY; Duration: 30 Active Vital Signs Temperature 98 degrees Fahrenheit 03/22/2025 Blood pressure systolic 128 mm Hg 03/22/20 25 Blood pressure diastolic 80 mm Hg 025 Heart Rate 72 /min 03/22/2025 Height 5 ft 7 in in 03/22/2025 Weight 250 lbs 03/22/2025 BMI 39.15 kg/m2 03/22/2025 Encounters Encounter Location Date Provider Diagnosis [address] [address] 03/22/2025 Erica Tucker Strain of lumbar region, initial encounter S39.012A Assessments Encounter Date Diagnosis (ICD Code) Assessment Notes Treatment Notes Treatment Clinical Notes Section Notes 03/22/2025 Strain of lumbar region, initial encounter (ICD-10 - S39.012A) She takes cyclobenzaprine pretty routinely. Recommend trial of methocarbamol during this acute injury and hold cyclobenzaprine. Continue Celebrex. May use Tylenol in addition to this as needed, less than 4 g/day. Stretching encouraged. May alternate heat and ice and use topical lidocaine as well. Return precautions reviewed. May return to work in 48 hours. Plan Of Treatment Medication Medication Name Sig Start Date Stop Date Notes Lidocaine 5 % 1 patch remove after 12 hours Externally Once a day; Duration: 30 days 03/22/2025 Methocarbamol 750 MG 1-2 tabs Orally baldev ry 12 hours as needed for back spasm; Duration: 7 days 03/22/2025 Next Appt Details Follow Up: prn, Reason: Progress Notes * Jasmin JORGEDOB:[birth year] (50 yo F)Acc No.[id number]:03/22/2025 Progress Notes Patient: Jasmin SUN Provider: LINDA Rojas :1975 A ge:50 Y S ex:Female Date:03/22/2025 Address:[address] [place] [address] [place], [id number] Pcp:David Garcia Subjective: * Chief Complaints: * 1 . Pulled Back Muscle - lower back pain. * HPI: g en: Low back pain since last night at work, picked up a bag of trash. [place] a pop in the lower back. Localized pain across the lower back and to the left buttock. No new numbness or tingling in the lower back or legs. No change in bowel or bladder. Some improvement with 2nd dose of flexeril today. * ROS: R ESPIRATORY: no S hortness of breath. C ARDIOLOGY: no C hest pain. C ONSTITUTIONAL: no L oss of appetite. n o F ever. G ASTROENTEROLOGY: no N ausea. n o V omiting. n o D iarrhea.? U ROLOGY: no D ifficulty urinating. n o B lood in urine. * Medical History: P TSD, Herniated disc, [...] *Please review and pick correct strength-formulation from [employer] options. If intended option is not shown, discontinue and re-order from Quick Search*, Taking Valsartan-hydroCHLOROthiazide 320-25 MG Tablet 1 tab(s) orally once a day , Taking Celecoxib 200 mg Capsule 1 capsule orally twice a day , Taking Carvedilol 12.5 MG Tablet TAKE ONE TABLET BY MOUTH TWICE DAILY , Taking Farxiga 5 MG Tablet 1 tablet Orally Once a day , Taking hydrOXYzine Pamoate 50 mg Capsule TAKE TWO CAPSULES BY MOUTH EVERY DAY AT BEDTIME OR DIRECTED , Taking buPROPion HCl ER (XL) 300 mg Tablet Extended Release 24 Hour TAKE ONE TABLET BY MOUTH EVERY MORNING , Taking Sertraline HCl 100 mg Tablet TAKE ONE TABLET BY MOUTH EVERY DAY , Taking Cyclobenzaprine HCl 10 mg Tablet TAKE ONE TABLET BY MOUTH THREE TIMES DAILY NEEDED MAY CAUSE DROWSINESS , Medication List reviewed and reconciled with the patient * Allergies: a mLODIPine: swelling, Ibuprofen: stomach upset, Amoxicillin: hives, Reglan: shakes, Penicillin: hives, NIFEdipine: swelling. Objective: * Vitals: N urse: dw, Pain: 9, Temp: 98, RR: 20, HR: 72, BP: 128/80, Ht: 5 ft 7 in, Wt: 250, BMI:39.15. * Examination: G eneral Examination: General P leasant and Cooperative, NAD on RA,. Heart: R egular Rate and Rhythm, no murmur, rubs or gallops. Lungs: c lear to auscultation,. Abdomen: s oft, NT/ND, BS present. Back: M ildly tender midline lower thoracic or lumbar spine. Otherwise no bony tenderness. She does have some tenderness at the paraspinals in this region. Negative straight leg raise bilaterally. Some increased pain with hip flexion. Normal gait. Difficult to elicit patellar and ankle reflexes on the left but she reports that this is chronic. Normal on the right.. Psych N ormal Mood/Affect. Assessment: * Assessment: 1. S train of lumbar region, initial encounter - S39.012A (Primary) Plan: * Treatment: * Follow Up: p rn * * Sign off status: Completed true * Provider: LINDA Rojas Date: 05/22/2024 Generated for Elsie mcnair/Remy/Babatundeitting on: 06/22/2024 06:49 AM EST History and Physical Notes * Examination Category Sub-Category Detail Notes Category Not es General Examination Heart: Regular Rate and Rhythm, no murmur, rubs or gallops Lungs: clear to auscultatio n, Abdomen: soft, NT/ND, BS pres ent Back: Mildly tender midlin e lower thoracic or lumbar spine. Otherwise no bony tenderness. She does have some tenderness at the paraspinals in this region. Negative straight leg raise bilaterally. Some increased pain with hip flexion. Normal gait. Difficult to elicit patellar and ankle reflexes on the left but she reports that this is chronic. Normal on the right. General Pleasant and [place] tive, NAD on RA, Psych Normal Mood/Affect
--- OUTSIDE RECORDS SUMMARY | 2025-04-21 06:49 | XMS_ITS | Clinical Summary ---
Author Organization [facility] Address [address] [place] [address] Care Team Providers Care Doctor Of Naturopathic Medicine Name Role Phone Kaya Braden RAIL CAR OPERATOR Unavailable [phone] Erica Tucker RAIL CAR OPERATOR Primary Care Provider [phone] Allergies Active Allergy Reactions Criticality Noted Date [...] COMFORT PAC) 4 MG misc 2 Active [place] 0.65 % nasal spray INSTILL 2 SPRAYS [...] 2022 Sigmoidoscopy 2022 [facility]-Colorectal Cancer Screening 2022 [id number] Vaccine ( season) 2025 04/09/2021, 10/02/2020, 09/04/2020 [facility]-Influenza Vaccine (#1) 01/02/202504/13, 04/09/2021, 06/18/2020, Additional history exists [facility]-Zoster Vaccines (1 of 2) 2027 HPV Vaccines (No Doses Required) Completed [facility]-HIB Vaccines Aged Out No longer e [...] age to complete this topic Insurance AETNA [facility] MEDICAID Care Teams Doctor Of Naturopathic Medicine Relationship Specialty Start Date End Date Erica Tucker APRN [address] [place] [address] PCP - General 09/01/22 Kaya Braden APRN [address] [facility] [address] [place] [address] Nurse Practitioner Neurosurgery 09/01/22
--- OUTSIDE RECORDS SUMMARY | 2025-04-21 06:49 | XMS_ITS | Patient Health Record ---
Author Organization [facility] Address [address] [place] [address] Care Team Providers Care Wash Oil Pump Operator Name Role Phone David Garcia Primary Care Provider Erica Tucker Unavailable [phone] Ester Romero Unavailable [phone] Erica Velasquez Unavailable [phone] Migration, Provider Unavailable Unavailable Allergies Allergen (clinical [...] e Results Component Value Reference Range Notes M-Complete Blood Count Auto Diff Reviewed date:07/08/2024 [...] AGRATIO 1.7 1.1-1.8 ALP 109 38-126 U/L M-Ferritin Reviewed date:07/08/2024 07:07:32 AM Interpretation: Performing Lab: Notes/Report: KONSTANTIN 90.4 6.24-137 ng/ml Y-O-Knqohpce Protein Reviewed date:07/08/2024 07:08:21 AM Interpretation: Performing Lab: Notes/Report: CRP 8.1 0-4 mg/L A-Jgqy-Mqgdvry Antibody Mary Jane r Reviewed date:07/08/2024 11:18:53 AM Interpretation: Performing Lab: Notes/Report: M-RA Latex Turbid. Reviewed date:07/11/2024 02:57:56 PM Interpretation: Performing Lab: Notes/Report: X ray : Shoulder, Right Reviewed date:01/30/2025 09:30:34 AM Interpretation: Performing Lab: Notes/Report: X ray : Shoulder, Right Reviewed date:01/30/2025 09:30:34 AM Interpretation: Performing Lab: Notes/Report: M-RA Latex Turbid. Reviewed date:07/17/2024 10:11:54 AM Interpretation: Performing Lab: Notes/Report: RA <10.0 <14.0 IU/mL Performed at: [address] [id number] Transportation Associate: Felipe Cortes PhD, Phone: [phone] Rapid Strep Reviewed date:05/18/2024 03:58:58 PM Interpretation:Negative Performing Lab: Notes/Report: Negative M-Hemoglobin A1C Reviewed date:07/07/2024 05:35:31 PM Interpretation: Performing Lab: Notes/Report: HGBA1C 4.4 4.0-6.0 % < 7% Controlled Diabetic Level > 8% Poorly Controlled Diabetic Level < 6% Non-Diabetic Level M-Uric Acid Reviewed date:07/07/2024 05:35:40 PM Interpretation: Performing Lab: Notes/Report: URIC 3.5 2.5-6.2 mg/dl M-Thyroid Stimulating Hormon e Reviewed date:07/07/2024 05:35:33 PM Interpretation: Performing Lab: Notes/Report: TSH 1.17 0.465-4.68 uIU/mL M-Hepatitis C Antibody Reviewed date:07/07/2024 05:35:22 PM Interpretation: Performing Lab: Notes/Report: X ray : Hip, Right Reviewed date:07/08/2024 11:18:07 AM Interpretation: Performing Lab: Notes/Report: X ray : Hand, Left Reviewed date:07/08/2024 11:16:51 AM Interpretation: Performing Lab: Notes/Report: X ray : Hand, Right Reviewed date:07/08/2024 11:17:44 AM Interpretation: Performing Lab: Notes/Report: H-TVITD Reviewed date:07/14/2024 09:27:49 AM Interpretation: Performing Lab: Notes/Report: TVITD 23.3 30-100 ng/mL Potential Toxicity >100 ng/mL Deficient <20 ng/mL Insufficient 20-30 ng/mL Sufficient 30-100 ng/mL H-VITB12 Reviewed date:07/11/2024 05:12:18 PM Interpretation: Performing Lab: Notes/Report: VITB12 396 239-931 pg/mL H-FOL Reviewed date:07/11/2024 05:12:14 PM Interpretation: Performing Lab: Notes/Report: FOL 4.17 Normal Adult: 2.76->20 ng/mL Folate Deficent: 1.04-2.79ng/mL Reason For Referral Reason Please refer to Derm atologist at [facility] for recurrent skin lesions, needs full body skin cancer check. Diagnosis 1 Skin lesions (L98.9) Referral Organization [facility] Referring Provider First Name Erica Referring Provider Last Name Eva Referring Provider [facility] ctice Referred Organization [facility] Referred Address [address] [facility] [address] [place], [place],[address], Referred Provider Specialty Dermatology General Notes Dedra Boyce 2024 03:52:02 PM >Referral sent to Dr. Escalera, Dedra Boyce 07/23/2024 10:14:06 AM > resent Referral Priority Routine Reason Needs colonoscopy at [facility], first available-screening colonoscopy Diagnosis 1 Unspecified abdomina l pain (R10.9) Referral Organization [facility] Referring Provider First Name David Referring Provider Last Name Jose Referring Provider [facility] Internal M edicine Referral Priority Routine Reason Home Sleep study Diagnosis 1 Chronic insomnia (F5 1.04) Referral Organization [facility] Referring Provider First Name Erica Referring Provider Last Name Caitlin Referring Provider [facility] ctice Referred Organization [facility] Referred Address [address] [place], [place],[address],[place] Referred Provider Specialty Sleep Study General Notes Dedra Boyce 2024 04:34:51 PM >sending to Brent Baird Referral Priority Routine Reason Please refer to [facility] for PT with neck and thoracic back pain. Diagnosis 1 Neck pain (M54.2) Referral Organization [facility] Referring Provider First Name Erica Referring Provider Last Name Eva Referring Provider [facility] ctice Referred Organization [facility] Referred Address [address] [place],[address],[place] Referred Provider Specialty Physical The rapist General Notes Dedra Boyce 2024 09:06:15 AM >sent Referral Priority Routine Reason OT eval and treat Diagnosis 1 Acute pain of right shoulder (M25.511) Referral Organization [facility] Referring Provider First Name Ester Referring Provider Last Name Nick Referring Provider Speciality Family Pra ctice Referred Organization [facility] Referred Address [address] [place],[address],[place] Referred Provider Specialty Occupational Therapy General Notes Dedra Boyce 2024 11:49:35 AM >sent to [facility] rehab Referral Priority Routine Medications Medication SIG (Take, Route, Frequency, Duration) Notes Start Date End Date Status buPROPion HCl ER (XL) 300 mg TAKE ONE TABLET BY MOUTH EVERY MORNING; Duration: 30 Active Farxiga 5 mg TAKE ONE TABLET BY MOUTH EVERY DAY; Duration: 30 Active Celecoxib 200 mg 1 capsule orally twice a day; Duration: 30 days Active Carvedilol 12.5 MG TAKE ONE TABLET BY MOUTH TWICE DAILY; Duration: 30 days Active Dicyclomine HCl 20 MG 1 tab(s) orally 4 times a day PRN Active Pantoprazole Sodium 40 MG 1 tab(s) orally once a day Active COVID-19 At-Home Test - as directed In Vitro 04/19/2025 Active Ondansetron HCl 4 MG 1 tab(s) [...] review and pick correct strength-formulati on from [employer] System[employer] options. If intended option is not shown, discontinue and re-order from Quick Search* 07/12/2024 Active Valsartan-hydroCHLOROth iazide 320-25 MG 1 tab(s) orally once a day; Duration: 90 days 03/02/2023 Active hydrOXYzine Pamoate 50 mg TAKE TWO CAPSULES BY MOUTH EVERY DAY AT BEDTIME OR DIRECTED; Duration: 30 Active Immunizations Vaccine Route Administration Date Status [...] Status W/U Status Risk Notes Problem Anxiety (80837820) Anxiety (F41.9) Active confi rmed Problem Sore throat (423564363) Sore throat (J02.9) Active confirmed Problem Morbid obesity (117129525) Morbid obesity (E66.01) Active confirmed Problem Essential hypertension (72404867) Essential hypertension (I10) Active confirmed Problem Gastroesophageal reflux disease (539928720) GERD without esophagitis (K21.9) Active confirmed Problem Body mass index 40+ - morbidly obese (553495290) BMI 40.0-44.9, adult (Z68.41) Active confirmed Problem Chronic pain (29471878) Other chronic pain (G89.29) Active confirmed Problem Neck pain (49905081) Neck pain (M54.2) Active confirmed Problem Tension headache (175779208) Tension headache (G44.209) Active confirmed Problem Chronic insomnia (237132312) Chronic insomnia (F51.04) Active confirmed Problem Fatty liver (088127608) Fatty liver (K76.0) Active confirmed Problem Mood disorder (97962735) Mood disorder (F39) Active confirmed Problem Skin sensation disturbance (28407607) Paresthesia of both feet (R20.2) Active confirmed Problem Generalized anxiety disorder (12160488) MADHAV (generalized anxiety disorder) (F41.1) Active confirmed Problem Neutrophilic leukocytosis (064280651) Neutrophilic leukocytosis (D72.9) Active confirmed Problem Sciatica (65921454) Acute left-sided low back pain with left-sided sciatica (M54.42) Active confirmed Problem Leukocytosis (477937388) Leukocytosis, unspecified (D72.829) Active confirmed Problem Amnesia (97030961) Memory change s (R41.3) Active confirmed Problem Type II diabetes mellitus without complication (852928144) Controlled type 2 diabetes mellitus without complication, without long-term current use of insulin (E11.9) Active confirmed Problem Seasonal allergic rhinitis (225026502) Seasonal allergic rhinitis, unspecified trigger (J30.2) Active confirmed Problem Type II diabetes mellitus without complication (617354722) New onset type 2 diabetes mellitus (E11.9) Active confirmed Problem Disorder of lumbar disc (474958071) Lumbar disc disease (M51.9) Active confirmed Problem Cough (10407028) Cough (R05.9) Active confirmed Vital Signs Heart Rate 72 /min 03/22/2025 Temperature 98 degrees Fahrenheit 03/22/2025 Blood pressure diastolic 80 mm Hg 03/22/2025 Height 5 ft 7 in in 03/22/2025 Blood pressure systolic 128 mm Hg 03/22/2025 Weight 250 lbs 03/22/2025 BMI 39.15 kg/m2 03/22/2025 Encounters Encounter Location Date Provider Diagnosis [facility] [address] [place] [address] 08/06/2024 Provider Migration [facility] [address] [place], [employer] [address] 05/05/2024 Erica Velasquez Acute suppurative otitis media of right ear without spontaneous rupture of tympanic membrane, recurrence not specified H66.001 and Acute URI J06.9 [facility] [address] [place], [place] [address] 05/18/2024 Erica Eva Skin lesions L98.9 ; Sore throat J02.9 and Right acute serous otitis media, recurrence not specified H65.01 [facility] [address] [place] [address] 06/22/2024 David Garcia Seasonal allergic rhinitis, unspecified trigger J30.2 ; MADHAV (generalized anxiety disorder) F41.1 ; Unspecified abdominal pain R10.9 and Other chronic pain G89.29 [facility] [address] [address] 07/06/2024 Erica Caitlin Pain in right hand M79.641 ; Pain in left hand M79.642 ; Right hip pain M25.551 ; Memory changes R41.3 ; Controlled type 2 diabetes mellitus without complication, without long-term current use of insulin E11.9 and Chronic insomnia F51.04 [facility] [address] [facility] [address] [place], [place] [address] 08/11/2024 Erica Velasquez Neck pain M54.2 ; Essential (primary) hypertension I10 and MADHAV (generalized anxiety disorder) F41.1 [facility] [address] [facility] [address] [place], [place] [address] 09/13/2024 Erica Tucker Mood disorder F39 ; Lumbar disc disease M51.9 ; Other chronic pain G89.29 and Tension headache G44.209 [facility] [address] [place], [place] [address] 10/24/2024 Erica Tucker Mood disorder F39 ; Lumbar disc disease M51.9 and Other chronic pain G89.29 [facility] [address] [facility] [address] [place], [place] [address] 12/05/2024 Erica Tucker Mood disorder F39 ; Controlled type 2 diabetes mellitus without complication, without long-term current use of insulin E11.9 ; Lumbar disc disease M51.9 ; Other chronic pain G89.29 and Essential hypertension I10 [facility] [address] [facility] [address] [place], [place] [address] 01/19/2025 Erica Tucker Mood disorder F39 ; Controlled type 2 diabetes mellitus without complication, without long-term current use of insulin E11.9 ; Lumbar disc disease M51.9 ; Other chronic pain G89.29 ; Essential hypertension I10 and Back strain, initial encounter S39.012A [facility] [address] [place] [address] 01/26/2025 Ester McNees Acute pain of right shoulder M25.511 [facility] [address] [place] [address] 03/22/2025 Erica Tucker Strain of lumbar region, initial encounter S39.012A [facility] [address] [place] [address] 05/05/2024 David Besson [facility] [address] [place] [address] 07/12/2024 Erica Tucker [facility] [address] [place] [address] 08/11/2024 Erica Velasquez MADHAV (generalized anxiety disorder) F41.1 [facility] [address] [place] [address] 08/12/2024 David Besson Neck pain M54.2 and Back pain M54.9 [facility] [address] [place] [address] 09/13/2024 Erica Tucker Neck pain M54.2 and Back pain M54.9 [facility] [address] [place] [address] 10/24/2024 David Besson [facility] [address] [place] [address] 11/10/2024 Erica Tucker Essential (primary) hypertension I10 and MADHAV (generalized anxiety disorder) F41.1 [facility] [address] [place] [address] 12/14/2024 Erica Tucker Controlled type 2 diabetes mellitus without complication, without long-term current use of insulin E11.9 [facility] [address] [place] [address] 01/06/2025 David Besson [facility] [address] [place] [address] 01/26/2025 Ester McNees Acute pain of right shoulder M25.511 [facility] [address] [place] [address] 01/27/2025 Ester Romero [facility] [address] [facility] [address] [place] [address] 04/19/2025 Erica Tucker Assessments Encounter Date Diagnosis (ICD Code) Assessment Notes Treatment Notes Treatment Clinical Notes Section Notes 11/10/2024 Essential (primary) hypertension (ICD-10 - I10) 05/18/2024 Skin lesions (ICD-10 - L98.9) At patient request with multiple tiny dry scabbed lesions, have placed Dermatology referral. 05/18/2024 Sore throat (ICD-10 - J02.9) 05/05/2024 Acute URI (ICD-10 - J06.9) Reassurance. [...] Return precautions discussed. All questions answered. 06/22/2024 MAHDAV (generalized anxiety disorder) (ICD-10 - F41.1) Overall [...] return precautions were reviewed as well 12/05/2024 Mood disorder (ICD-10 - F39) continue [...] I will see her in 3 months 05/18/2024 Right acute serous otitis media, recurrence not specified (ICD-10 - H65.01) No active infection. Flonase bid x 7 days then once daily, continue antihistamine. Follow-up if develops fever, pain, hearing loss, worsening symptoms, or no improvement in a week. Warm compress to right neck. 11/10/2024 MADHAV (generalized anxiety disorder) (ICD-10 - F41.1) 06/22/2024 Other chronic pain (ICD-10 - G89.29) [...] E11.9) 07/06/2024 Chronic insomnia (ICD-10 - F51.04) 01/19/2025 [...] 25 Hydroxy 07/06/2024 M-Folate 07/06/2024 M-Folate 03/02/2023 U-Tbcb-Sipims Citrullinated Pept 025 M-Microalb/Creat Ratio, Randm Ur 023 Comprehensive Metabolic Panel (CMP) 06/2021 Physical Therapy Eval and Treat 09/14/19 25 Physical Therapy Eval and Treat 08/13/19 25 Insurance Providers Payer Name Payer Address Payer Phone Subscriber Number Group Number Insured Name Patient Relationship to Insured Coverage Start Date Coverage End Date [employer] [facility] [address] [address] [place] [address] [id number] Jasmin Zamorano Self - patient is the [...] Kidney Stent Removed 03/29/24 cyst removal from [facility] 09/2024 Hospitalization History Reason Date(Month/Year) [facility]- Kidney Stone. 07/25-03/08 lipitripsy x 1
--- OUTSIDE RECORDS SUMMARY | 2025-04-21 06:50 | XMS_ITS | Encounter Summary ---
Author Organization [facility] Address [address] [place] [address] Care Team Providers Care Group Account Director Name Role Phone Mahesh Horton MD Primary Care Provider [phone] Kaya Braden FORENSIC ENGINEER Unavailable [phone] Erica Tucker APRN Primary Care Provider [phone] Encounter Details Date Type Department Care Team (Latest Contact Info) Description 11/08/2021 Community [facility] [address] [place] [address] [place], [place] [address] [facility] [place] [address] Lumbar radiculopathy (Primary Dx) Social [...] unspecified documented in this encounter Care Teams Group Account Director Relationship Specialty Start Date End Date Mahesh Horton MD [address] [place] [address] PCP - General 09/14/20 08/31/22 Erica Tucker APRN [address] [facility] [address] [facility] [address] [place] [address] PCP - General 09/01/22 Kaya Braden APRN [address] [facility] [address] [place] [address] Nurse Practitioner Neurosurgery 09/01/22 documented as of this encounter
--- NOTE | 2025-04-21 07:00 | MR_ITS ---
FINAL REPORT CLINICAL HISTORY: limited rom worsening since January 26 COMPARISON: None FINDINGS: Multi planar MR imaging of the right shoulder was performed. The supraspinatus tendon appears intact. There is no abnormal fluid in the subacromial/subdeltoid bursa. The anterior and posterior glenoid marleny appear intact. Subscapularis tendon is intact. The biceps tendon appears intact. Mild hypertrophic changes of the acromioclavicular joint. There is mild edema of the distal clavicle and acromion. IMPRESSION: Mild hypertrophic changes and edema at the AC joint. Reviewed, Interpreted and Dictated by Can Uribe MD Transcribed by Yue Willard Authenticated and [facility]
== END 2025-04-21 23:59 | disposition home or self-care (01) ==
LOC: RAD 06:47
PROVIDERS: PCP Nurse Practitioner Family; Visit Provider Orthopaedic Surgery
DX: S46.011A Strain of muscle(s) and tendon(s) of the rotator cuff of right shoulder, initial encounter (principal); M75.41 Impingement syndrome of right shoulder; M19.011 Primary osteoarthritis, right shoulder; X58.XXXA Exposure to other specified factors, initial encounter
CPT/HCPCS: 73221

== ENCOUNTER 2025-04-25 09:50 | Outpatient (CLI) | payer OTHER, SELFPAY ==
--- OUTSIDE RECORDS SUMMARY | 2025-04-25 09:53 | XMS_ITS | Encounter Summary ---
Author Organization [facility] Address [address] [place] [address] Care Team Providers Care Order Expediter Name Role Phone Mahesh Horton MD Primary Care Provider [phone] Kaya Braden HEALTHCARE ADMINISTRATIVE ASSISTANT Unavailable [phone] Erica Tucker APRN Primary Care Provider + [phone] Encounter Details Date Type Department Care Team (Latest Contact Info) Description 11/08/2021 Community [facility] Community Practice [address] [place] [address] [place], [place] [address] [facility] [place] [address] Lumbar radiculopathy (Primary Dx) Social [...] unspecified documented in this encounter Care Teams Order Expediter Relationship Specialty Start Date End Date Mahesh Horton MD [address] [place] [address] PCP - General 09/14/20 08/31/22 Erica Tucker APRN [address] [facility] [address] [facility] [address] [place] [address] PCP - General 09/01/22 Kaya Braden APRN [address] [facility] [address] [place] [address] Nurse Practitioner Neurosurgery 09/01/22 documented as of this encounter
--- OUTSIDE RECORDS SUMMARY | 2025-04-25 09:53 | XMS_ITS | Clinical Summary ---
Author Organization [facility] Address [address] [place] [address] Care Team Providers Care National Sales Associate Name Role Phone Kaya Braden PROGRAM HOST Unavailable [phone] Caitlin Erica PROGRAM HOST Primary Care Provider [phone] Allergies Active Allergy Reactions Criticality Noted Date [...] COMFORT PAC) 4 MG misc 2 Active [place] 0.65 % nasal spray INSTILL 2 SPRAYS [...] 2022 Sigmoidoscopy 2022 [facility]-Colorectal Cancer Screening 2022 [id number] Vaccine ( season) 2025 04/09/2021, 10/02/2020, 09/04/2020 [...] AETNA [facility] MEDICAID Care Teams National Sales Associate Relationship Specialty Start Date End Date Erica Tucker APRN [facility] [address] [place] [address] PCP - General 09/01/22 Kaya Braden APRN [address] [facility] [address] [place] [address] Nurse Practitioner Neurosurgery 09/01/22
[2025-04-25 10:03] LABS: Hematocrit 36.3 % (37.0-47.0); Hemoglobin 12.1 g/dL (12.2-16.2); Immature Granulocytes % 0.2 %; Mean Corpuscular HGB Conc 33.3 g/dL (31.8-35.4); Mean Corpuscular Hemoglobin 30.9 pg (27.0-31.2); Mean Corpuscular Volume 92.8 fl (81-99); Nucleated Red Blood Cells % 0 %; Platelet Count 327 K/mm3 (142-424); Red Blood Count 3.91 M/mm3 (4.20-5.40); Red Cell Distribution Width-SD 43.9 fL; White Blood Count 9.6 K/mm3 (4.8-10.8)
[2025-04-25 10:42] LABS: Albumin Level 4.6 g/dl (3.5-5.0); Chloride 105 mmol/L (98-107); Sodium 141 mmol/L (136-145)
[2025-04-25 10:43] LABS: Potassium 4.2 mmoL/L (3.5-5.1)
[2025-04-25 10:45] LABS: Alanine Aminotransferase 24 U/L (12-78); Anion Gap 12.2 mEq/L (5-15); Aspartate Amino Transferase 24 U/L (14-36); Bilirubin,Unconjugated 0.4 mg/dL (0.0-1.1); Blood Urea Nitrogen 24 mg/dl (7-17); Carbon Dioxide 28 mmol/L (22.0-30.0); Cholesterol 224 mg/dl (140-200); Creatinine,Serum 1.00 mg/dl (0.52-1.04); Estimated Glomerular Filt Rate 59 ml/min (>60); GFR (African American) 72 ML/MIN (>60); Total Protein,Serum 7.4 g/dl (6.3-8.2); Triglycerides 336 mg/dl (30-150)
[2025-04-25 10:46] LABS: Alkaline Phosphatase 106 U/L (38-126); Bilirubin,Direct 0.0 mg/dl (0.0-0.4); Bilirubin,Indirect 0.4 mg/dL (0.0-0.9); Bilirubin,Total 0.4 mg/dl (0.2-1.3); Calcium 10.7 mg/dl (8.4-10.2); Glucose 105 mg/dl (74-100); HDL Cholesterol 42 mg/dl (40-60); Magnesium 1.6 mg/dl (1.6-2.3)
[2025-04-25 10:59] LABS: Free T4 (Free Thyroxine) 1.24 ng/dl (0.78-2.19)
[2025-04-25 11:17] LABS: Thyroid Stimulating Hormone 3.71 uIU/mL (0.465-4.68)
== END 2025-04-25 23:59 | disposition home or self-care (01) ==
LOC: LAB 09:51
PROVIDERS: PCP Nurse Practitioner Family; Visit Provider Nurse Practitioner
DX: I77.9 Disorder of arteries and arterioles, unspecified (principal); I10 Essential (primary) hypertension
CPT/HCPCS: 36415; 80048; 80061; 80076; 83735; 84439; 84443; 85025